=== PATIENT | male | born 1955 | race Caucasian/White ===

== ENCOUNTER 2018-08-10 14:34 | Emergency (ER) | payer OTHER, SELFPAY ==
[2018-08-10 14:35] VITALS: BP 174/112; PULSE 99; RESP 16; TEMP 36; O2SAT 97; BMI 25.3
--- NOTE | 2018-08-10 15:01 | CT_ITS ---
STUDY: CT BRAIN WITHOUT CONTRAST REASON FOR EXAM: Male, 63 years old. Laceration. RADIATION DOSAGE (If Supplied By Facility): CTDIvol = ( 44.99 ) mGy, DLP = ( 829.85 ) mGycm TECHNIQUE: Transaxial CT imaging of the brain was performed without administration of intravenous contrast material. Individualized dose optimization techniques were used for this CT. COMPARISON: None. FINDINGS: There is no definite acute abnormality. There is diffuse mild symmetric atrophy. There is atrophy of the posterior fossa structures. There is diffuse small vessel ischemic disease of the white matter. There is no definite acute infarct. There is no bleed. There is no gross mass, mass effect, or midline shift. There is no acute abnormality of the skull. No fractures. Grossly normal orbits. Grossly normal sinuses. CT/Brain/Head without Contrast IMPRESSION: Chronic age related changes and atrophy. No acute abnormality. Electronically Signed: Tae Parish MD at 16:22 EDT , Service support ,
--- NOTE | 2018-08-10 15:06 | ED.DCSUM_ITS ---
- ER Visit Summary Date of Service: 08/10/18 Chief Complaint: Fall History of Present Illness: The patient is a 63 M who fell around 2 PM today. The patient tripped. He did hit his head and he sustained a laceration to his forehead. He did not lose consciousness. Denies neck pain. Denies any other pain or injuries. He does take aspirin. Physical Examination: Hypertensive but otherwise vitals normal. Afebrile. Alert and oriented. No acute distress. Sitting comfortably. Left forehead and eyebrow shows a 3 cm laceration, full-thickness. The remainder of his head is atraumatic. HEENT exam unremarkable. Neck nontender. Heart regular rate and rhythm. Lungs clear. Good strength and sensation, symmetric in all extremities. Test Results: CT brain pending. Emergency Department Course and Treatment: Tetanus updated. Laceration was anesthetized with lidocaine. Irrigated and explored. Closed with simple interrupted sutures 6 x 6-0. Follow-up with primary care for suture removal in about 12 days. Return sooner for any complications like redness, warmth, bleeding, pus, or increasing pain. CT unremarkable. No indication for other imaging or diagnostic testing. Treatment Plan: As above Disposition: Discharge Impression: 1. Closed head injury 2. Forehead laceration 3 cm This note was generated with [employer] dictation software. It may contain incorrect words, spelling, and punctuation that were not noted in review of the chart prior to signing ED Disposition - Plan for ED Patient: Chief Complaint: Head Injury Instructions: ED Concussion, ED Laceration All Referrals: [facility] [Primary Care Provider] - 10-14 Days suture removal
--- NOTE | 2018-08-10 15:06 | ED.DEP ---
ED Disposition - Plan for ED Patient: Chief Complaint: Head Injury Instructions: ED Concussion, ED Laceration All Referrals: [facility] [Primary Care Provider] - 10-14 Days suture removal
--- NOTE | 2018-08-10 15:07 | DCINST.ED_ITS ---
ED Disposition - Plan for ED Patient: Chief Complaint: Head Injury Instructions: ED Concussion, ED Laceration All Referrals: [facility] [Primary Care Provider] - 10-14 Days suture removal
[2018-08-10] MEDS: Diphth,Pertuss(Acell),Tet Vac 0.5 ML Vial IM (15:24)
[2018-08-10 16:48] VITALS: BP 159/98; PULSE 86; RESP 18; O2SAT 96
== END 2018-08-10 16:49 | disposition home or self-care (01) ==
LOC: ED 16:19
PROVIDERS: Emergency Provider Emergency Medicine
DX: S01.81XA Laceration without foreign body of other part of head, initial encounter (principal); W01.10XA Fall on same level from slipping, tripping and stumbling with subsequent striking against unspecified object, initial encounter; Y93.9 Activity, unspecified; Y92.89 Other specified places as the place of occurrence of the external cause; Y99.9 Unspecified external cause status; Z23 Encounter for immunization; E11.9 Type 2 diabetes mellitus without complications; Z87.891 Personal history of nicotine dependence; Z86.19 Personal history of other infectious and parasitic diseases
CPT/HCPCS: 12013; 70450; 90715; 99282

== ENCOUNTER 2019-02-25 17:13 | Emergency (ER) | payer OTHER, SELFPAY ==
[2019-02-25 17:13] VITALS: BP 144/82; PULSE 88; RESP 18; TEMP 36.9; O2SAT 97; BMI 26.4
--- NOTE | 2019-02-25 17:54 | ED.DCSUM_ITS ---
- ER Visit Summary Date of Service: 02/25/19 Chief Complaint: Fell in his kitchen injuring his left hand on the dorsum along the index finger and lower back. History of Present Illness: The patient is a 63 M past medical history of insulin-dependent diabetes, hepatitis and hypertension. He states that he was in his kitchen got his front right pocket caught on the counter and lost his balance and fell landing on his buttock injuring his lower back and left hand. Denies any his head. No LOC. No neck pain. He is on no blood thinners besides aspirin. Physical Examination: Vital signs stable afebrile. No acute distress. H EENT exam. Light. Extra motions are intact. No signs of facial or scalp trauma. Nontender no hematomas. C-spine nontender normal range of motion. Lungs clear to auscultation bilaterally. Heart regular rhythm no murmur. Chest nontender. Abdomen soft nontender. No peritoneal signs. Pelvic girdle intact. Remedies moving all 4. Neurovascular intact. The left shoulder, elbow and wrist are nontender. Nonswollen. He has swelling and tenderness to the dorsum of his left hand primarily over the dorsum of the left index finger metacarpal. Skin is intact. Lower extremities he has normal range of motion. 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 Back is cervical, thoracic spines are nontender. His mid to lower lumbar spinous tenderness but no ecchymosis or bruising. Neurologically is awake alert with no focal motor deficits. Test Results: LS-spine x-ray shows 3 view shows no acute abnormality. No compression fractures. Read by myself. Chronic changes Left hand x-ray shows chronic changes no acute fracture dislocation read by myself. 3 views. Emergency Department Course and Treatment: Patient deferred anything for pain. Imaging studies be obtained. Repeat exam patient is doing well at 1820 3 PM. He and I went over his x-rays. Treatment Plan: Ice all sore areas. Tylenol for pain. Follow-up with his primary care provider if not improving. Disposition: dc Impression: Lumbar contusion Left hand contusion Acute fall This note was generated with [employer] dictation software. It may contain incorrect words, spelling, and punctuation that were not noted in review of the chart prior to signing ED Disposition - Plan for ED Patient: [facility]errals[place] [facility] [[facility] [place]] -
--- NOTE | 2019-02-25 17:55 | RAD_ITS ---
STUDY: X-RAY - LEFT HAND REASON FOR EXAM: Male, 63 years old. Pain TECHNIQUE: 3 view(s) of the hand. COMPARISON: None. FINDINGS: There is no evidence of fracture or dislocation. Mild degenerative changes are present in the carpal bones. Osteopenia is present. There are no radiodense foreign bodies. RAD/Hand Min 3 Views IMPRESSION: No fracture or dislocation. Mild carpal degenerative changes and osteopenia. Electronically Signed: Rohit Bradford, at 18:47 EDT Tel , Service support ,
--- NOTE | 2019-02-25 18:05 | RAD_ITS ---
STUDY: X-RAY - LUMBAR SPINE REASON FOR EXAM: Male, 63 years old. Fall TECHNIQUE: 3 view(s) of the lumbar spine were obtained. COMPARISON: None FINDINGS: There is no evidence of fracture or dislocation in the lumbar spine. The vertebral body heights and disc spaces are well-maintained. Mild multilevel osteophytosis is present. There are no significant degenerative changes. RAD/Lumbar Spine 2 or 3 Views IMPRESSION: No fracture or dislocation in the lumbar spine. Mild multilevel osteophytosis. Electronically Signed: Rohit Bradford, at 18:49 EDT Tel , Service support ,
--- NOTE | 2019-02-25 18:25 | ED.DEP ---
ED Disposition - Plan for ED Patient: Instructions: ED Contusion Back, ED Contusion Hand Referrals: [facility] [Primary Care Provider] - As Needed Additional Instructions: Back. Tylenol for pain and limited Motrin. Follow-up with not improving. Your x-rays showed no broken bones today.
--- NOTE | 2019-02-25 18:58 | ED.RN ---
calling security to pull vehicle to front for pt
== END 2019-02-25 18:59 | disposition home or self-care (01) ==
LOC: ED 17:58
PROVIDERS: Emergency Provider Emergency Medicine
DX: S30.0XXA Contusion of lower back and pelvis, initial encounter (principal); S60.222A Contusion of left hand, initial encounter; W01.0XXA Fall on same level from slipping, tripping and stumbling without subsequent striking against object, initial encounter; Y92.000 Kitchen of unspecified non-institutional (private) residence as the place of occurrence of the external cause; Z79.4 Long term (current) use of insulin; E11.9 Type 2 diabetes mellitus without complications; I10 Essential (primary) hypertension; Z86.73 Personal history of transient ischemic attack (TIA), and cerebral infarction without residual deficits
CPT/HCPCS: 72100; 73130; 99282; J7030

== ENCOUNTER 2019-04-21 05:17 | Emergency (ER) | payer OTHER, SELFPAY ==
[2019-04-21 05:18] VITALS: BP 189/107; PULSE 92; RESP 16; TEMP 36.6; O2SAT 98; BMI 28.2
--- NOTE | 2019-04-21 05:30 | RAD_ITS ---
STUDY: X-RAY - RIGHT WRIST REASON FOR EXAM: Male, 64 years old. Right-sided wrist pain. TECHNIQUE: 3 view(s) of the wrist were obtained. COMPARISON: None. FINDINGS: There is demineralization of the radius and ulna. There is degenerative arthrosis of the radiocarpal articulation. There is degenerative arthrosis of the distal radioulnar articulation. There is demineralization of the carpal bones. There is deformity of the lunate suggesting possible sequela of previous fracture. There are lucencies within several carpal bones that may represent small erosions. There is degenerative arthrosis of the carpal articulations. There is degenerative arthrosis of the carpometacarpal articulation of the thumb. Normal second through fifth carpometacarpal articulations. Normal visualized metacarpal bones. There is mild soft tissue swelling. There is no demonstrated acute fracture. RAD/Wrist min 3 Views IMPRESSION: 1. Osteoporosis. 2. Degenerative arthropathy of the wrist. 3. Probable sequela of previous fracture of the lunate. 4. Apparent erosive changes of the carpal bones. Electronically Signed: Vandana Asencio MD at 6:52 EDT , Service support ,
--- NOTE | 2019-04-21 05:30 | RAD_ITS ---
STUDY: X-RAY - UNILATERAL RIBS ( LEFT ) WITH CHEST REASON FOR EXAM: Male, 64 years old. Left rib pain. TECHNIQUE - RIBS: 3 view(s) of the ribs. TECHNIQUE - CHEST: Single PA view of the chest. COMPARISON: Chest radiograph dated May 03, 2017. FINDINGS - RIBS: Appears to be some periosteal reaction at the costochondral region of the left ninth rib suggesting possible sequela of subacute or old fracture. There may also be deformity of the left costochondral region of the left 10th rib. FINDINGS - CHEST: There is hyperinflation of the lungs consistent with chronic obstructive lung disease (COPD). There is interstitial thickening present in both lungs. There is no demonstrated pleural abnormality. Normal size heart. Normal mediastinum and brie. There is prominence of the pulmonary hilar arteries without peripheral pulmonary vascular congestion. There is atherosclerotic calcification of the aortic arch with tortuosity. Normal visualized thoracic spine. There also appears to be deformity of the posterior left fifth rib which may be the result of old rib fracture. There is deformity of the lateral left sixth and seventh ribs. There is no demonstrated abnormality of the visualized soft tissue structures of the upper abdomen. RAD/Ribs Uni Min 3V w/PA Chest IMPRESSION: RIBS: Deformity of several left-sided ribs as described. These are of uncertain acuity. Clinical correlation is suggested regarding acuity. CHEST: No radiographic evidence of acute cardiopulmonary disease. Electronically Signed: Vandana Asencio MD at 6:45 EDT , Service support ,
--- NOTE | 2019-04-21 05:31 | ED.DCSUM_ITS ---
- ER Visit Summary Date of Service: 04/21/19 Chief Complaint: Fall History of Present Illness: The patient is a 64 M who presents after a fall today. Patient states he tripped in his house. Patient states he grabbed onto a railing with his right arm and hit his left ribs. Patient states the pain is over the left lower ribs. Patient also complains of pain in his right wrist. Patient denies any head injury or loss of consciousness. Patient denies any paresthesias or weakness. Patient states the pain is worse with deep breathing and with movement. Patient denies any other injuries. Physical Examination: Vital signs are stable except for an elevated blood pressure of 189/107. Patient is afebrile. Patient is in no acute distress. Oral mucosa is pink and moist. Neck is supple. Trachea is midline. There is no JVD noted. Heart was regular rate and rhythm. Lungs are clear and equal bilaterally. There is adequate respiratory effort noted. There is tenderness over the left lower ribs. There is no bony crepitance or step-off. Abdomen is soft. Bowel sounds are normal. There is no tenderness. Musculoskeletal exam reveals tenderness over the right wrist. There is some mild edema and ecchymosis. There is no deformity noted. Range of motion was slightly limited in flexion extension secondary to pain. Sensation was intact to light touch in the radial, median, and ulnar areas. Strength is 5/5 in the radial, median, and ulnar areas. Radial pulses are equal bilaterally. Test Results: X-rays of the right wrist were obtained. There are degenerative changes noted. There is no acute fracture noted. X-rays of the left ribs were obtained. There are old healed fractures of the left fifth and sixth ribs posteriorly. There is also an old fracture of the left ninth rib and a questionable deformity near the costochondral region of the left 10th rib. There is no pneumothorax noted. Emergency Department Course and Treatment: Patient was instructed to use ice to the area. Patient was instructed to use Tylenol or ibuprofen as needed for pain. Patient was instructed to take 10-15 deep breaths every hour while awake to prevent atelectasis and pneumonia. Patient was instructed to follow-up with his primary care physician in 5 to 7 days. Patient understood and was agreeable with the plan. All questions were answered. Disposition: Discharge home Impression: 1. Left chest wall contusion 2. Right wrist contusion This note was generated with [employer] dictation software. It may contain incorrect words, spelling, and punctuation that were not noted in review of the chart prior to signing ED Disposition - Plan for ED Patient: Disposition: Home or Assisted Living Diagnosis: Contusion of left chest wall, Contusion of right wrist, initial encounter Instructions: Chest Wall Contusion, FALL, Mechanical Referrals[place] [facility] [Primary Care Provider] - 5-7 Days
== END 2019-04-21 07:16 | disposition home or self-care (01) ==
PROVIDERS: Emergency Provider Emergency Medicine
DX: S20.212A Contusion of left front wall of thorax, initial encounter (principal); S60.211A Contusion of right wrist, initial encounter; W01.0XXA Fall on same level from slipping, tripping and stumbling without subsequent striking against object, initial encounter; Y93.9 Activity, unspecified; Y92.009 Unspecified place in unspecified non-institutional (private) residence as the place of occurrence of the external cause
CPT/HCPCS: 71101; 73110; 99282

== ENCOUNTER 2019-08-18 11:53 | Inpatient (IN) | payer MEDICARE, OTHER, SELFPAY ==
[2019-08-18 11:54] VITALS: BP 163/88; PULSE 88; RESP 18; TEMP 36.6; O2SAT 99; BMI 29.7
--- NOTE | 2019-08-18 12:26 | VDLE_ITS ---
Reason For Study: SWSELLING RIGHT GSV is normal. CFV is compressible, spontaneous, phasic, competent and demonstrates normal augmentation. FV is compressible, spontaneous, phasic, competent and demonstrates normal augmentation. POP V is compressible, spontaneous, phasic, competent and demonstrates normal augmentation. T/P Trunk is compressible. PTV is compressible. RT PerV is compressible. Procedure Exam performed portable in ED. A preliminary report was called and/or faxed to ED. Interpretation Summary Deep veins of the right lower extremity are patent and compressible segmentally. There is no evidence of right lower extremity deep vein thrombosis. Valvular competence appears intact within the proximal deep venous system on the right . The right great saphenous vein appears patent and compressible segmentally. Ordering Physician: Juan Gonzalez Referring Physician: [facility] Performed By: Sylwia Bulter, AYDIN, RVT
[2019-08-18 13:06] LABS: Absolute Lymphocyte Count 1.08 X10^3/uL (0.83-4.51); Basophil# 0.03 X10^3/uL; Basophil% 0.4 % (0-1); Eosinophil# 0.13 X10^3/uL; Eosinophils% 1.9 % (0-5); Hematocrit 42.4 % (40-54); Hemoglobin 13.7 g/dL (13.0-16.5); Lymphocyte # 1.08 X10^3/ul (4.0); Lymphocyte % 15.5 % (19-41); Mean Corp Hgb Conc 32.3 g/dL (32-36); Mean Corpuscular Hgb 28.8 pg (27.0-32.0); Mean Corpuscular Volume 89.1 fL (80-94); Mean Platelet Vol. 9.8 fl (6.2-12.0); Monocyte# 0.69 X10^3/uL; Monocyte% 9.9 % (0-10); NRBC Flagged by Analyzer 0 % (0-5); Neutrophil # 5.02 X10^3/uL (2.7-7.7); Neutrophil % 71.9 % (47-70); Platelet Count 143 K/mm3 (150-450); RBC Distribution Width CV 13.2 % (11.6-14.6); RBC Distribution Width SD 43.5 fl (35.1-43.9); Red Blood Count 4.76 M/mm3 (4.6-6.2)
--- NOTE | 2019-08-18 13:12 | RAD_ITS ---
STUDY: X-RAY - RIGHT FOOT CLINICAL: Male, 64 years old. Edema and redness at the surgical site. TECHNIQUE: 3 view(s) of the foot. COMPARISON: None. FINDINGS: There is an enthesophyte involving the posterior superior calcaneus at the site of insertion of the Achilles tendon. Small plantar spur. Talar neck peak. Normal visualized subtalar, talonavicular, calcaneocuboid, tarsal and tarsometatarsal articulations. The patient is status post amputation of the distal portion of the fourth metatarsal as well as the fourth digit. Normal metatarsophalangeal joint of the great toe. Normal tibial and fibular sesamoid bones. There is degenerative arthrosis of the interphalangeal joint of the great toe. Normal phalanges of the great toe. Normal second through fifth metatarsophalangeal joints. Normal interphalangeal joints and phalanges of the lesser toes. Diffuse soft tissue swelling. RAD/Foot min 3 Views IMPRESSION: Status post amputation of the distal portion of the fourth metatarsal as well as the fourth toe with diffuse soft tissue swelling. Electronically Signed: Brandon Qiu, at 13:33 EST , Service support ,
[2019-08-18 13:19] LABS: Erythrocyte Sedimentation Rate 26 mm/hr (0-20)
[2019-08-18 13:20] LABS: AST(SGOT) 19 U/L (15-37); Alanine Aminotransfer ALT/SGPT 32 U/L (16-61); Albumin, Serum 3.7 g/dL (3.2-5.0); Alkaline Phosphatase 57 U/L (45-117); Anion Gap 5 (5-15); BUN 15 mg/dL (7-18); Bilirubin, Direct 0.34 mg/dL (0.00-0.30); Calcium,Total 9.1 mg/dL (8.5-10.1); Chloride 102 mmol/L (98-107); Creatinine, Serum 0.88 mg/dL (0.70-1.30); EST Glomerular Filtration Rate 92 mL/min (>60); Est Glom Filt Rate - Afr Amer 111 mL/min (>60); Estimated Creatinine Clearance 95.84 ml/min; Globulin 4.3 g/dL (2.2-4.2); Glucose 174 mg/dL (74-106); Potassium 4.2 mmol/L (3.5-5.1); Sodium Level 137 mmol/L (136-145)
[2019-08-18 13:23] LABS: Lactic Acid 1.1 mmol/L (0.4-2.0)
--- NOTE | 2019-08-18 13:40 | ED.VISSUMM ---
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 Reports that he chronically has a plantar wound on the right foot. His who has been caring for it states that today the foot is grossly edematous particularly all the toes and the third toe is now very red and warm. He has had chills and subjective fever. He notes that since his prior amputation the right leg has always been more swollen than the left. Physical Examination: Afebrile vital signs stable Gen: Well-nourished well-developed Head: Normocephalic atraumatic Eyes: Perrl EOMI ENT: TMs clear no rhinorrhea moist mucous membranes Neck: Supple no lymphadenopathy no JVD nontender CVS: Regular rate rhythm no murmurs normal S1-S2 Respiratory: No distress clear to auscultation bilaterally chest nontender Abdomen: Soft nontender nondistended normal bowel sounds no masses Back: Nontender Extremity: The right fourth toe surgically absent. The right third toe is grossly edematous and erythematous. The rest of the toes are not erythematous but do show significant edema. There is some erythema and edema extending up onto the foot. There is a small 3 to 4 mm plantar soft tissue defect/ulcer. Skin: Normal color no rash Neuro: alert orientated ?3 CN II-XII intact normal strength sensation reflexes gait cerebellar Psych: Normal affect normal mood Test Results: White count is 7. CRP at 114. Sed rate 26. Glucose 174. Normal lactic acid. Foot x-ray demonstrates no obvious osteo-or free air. Duplex ultrasound was negative for DVT. Emergency Department Course and Treatment: Blood cultures were obtained and the patient received vancomycin and Zosyn. We will plan on admission. I had our sales secretary call [facility] Eric Myrick and it appears that we can admit here. I will page both her hospitalist and on-call podiatry. Impression: 1. Right foot diabetic cellulitis This note was generated with [employer] dictation software. It may contain incorrect words, spelling, and punctuation that were not noted in review of the chart prior to signing ED Disposition - Plan for ED Patient: [facility]errals[facility] [Primary Care Provider] -
--- NOTE | 2019-08-18 14:23 | HP.PCM_ITS ---
Problem List (1) Diabetic foot infection Status: Acute (2) Cellulitis Status: Acute Qualifiers: Site of cellulitis: extremity Site of cellulitis of extremity: lower extremity Laterality: right Qualified Code(s): L03.115 - Cellulitis of right lower limb (3) Anxiety Status: Acute (4) Diabetes Status: Chronic Qualifiers: Diabetes mellitus type: type 2 Diabetes mellitus usp insulin use: without termite treater helper use Diabetes mellitus complication detail: with other skin ulcer (5) Hypertension Status: Chronic Qualifiers: Hypertension type: essential hypertension Qualified Code(s): I10 - Essential (primary) hypertension (6) Hyperlipidemia Status: Acute Qualifiers: Hyperlipidemia type: unspecified Qualified Code(s): E78.5 - Hyperlipidemia, unspecified History of Present Illness Date of Admission: 08/18/19 Chief Complaint: Right foot infection -ongoing for 11 months; worsening over the past 1 week The patient is a 64 year old M with past medical history of hypertension, type II DM, [facility] comes in with complaints of swelling of the right foot as well as erythema and worsening right foot infection. Patient had a right fourth toe amputation done in October 2018. He follows up with a refrigerator room clerk in [place]. He has noticed that his right foot is increasingly swollen. This morning he woke up to see worsening swelling of the toes as well as erythema. It looked like what it did look before he had his 4th toe amputation. Admits to fever and chills but denied any dizziness or chest pain or shortness o f breath no nausea no vomiting or constipation. His vitals in the ED showed temperature 97.8 F, heart rate 88, blood pressure 163/88, respiratory rate is 18, SPO2 is 99% on room air. His admitting blood work showed WBC count 7.0, hemoglobin 13.7, platelet count 143. His BMP was unremarkable. His total bilirubin is 1.50, Direct bilirubin 0.34, CRP was 114, ESR 26. X-ray of the foot showed diffuse soft-tissue swelling of the foot. Blood cultures are pending. Past Medical History Past Medical History (Chronic Problems): Chronic Problems Hypertension (Chronic) Diabetes (Chronic) Allergies morphine Adverse Reaction (Verified 08/18/19 11:57) Gets mean Home Medications: Ambulatory Orders Medication Instructions Recorded Aspirin [Aspir-Low] 81 mg PO DAILY 04/30/17 Insulin Glargine [Lantus SoloStar 20 units SC QHS 04/30/17 Pen] Melatonin 6 mg PO QHS PRN 04/30/17 Atorvastatin Calcium 5 mg PO QHS 08/18/19 Carvedilol 3.125 mg PO BID 08/18/19 Cholecalciferol (Vitamin D3) 2,000 unit PO DAILY 08/18/19 [Vitamin D3] DiphenhydrAMINE [Benadryl] 25 mg PO QHS PRN 08/18/19 Gabapentin [Neurontin] 300 mg PO TID 08/18/19 Metformin HCl 1,000 mg PO BID 08/18/19 Surgical History: arthroscopy, knee - left, cholecystectomy, total hip arthroplasty - right x 2, - - s/p right 4th toe amputation Lives: Spouse/ Significant Other Smoking Status: Former smoker Tobacco Use: Non-smoker Alcohol: None Drugs: None - *Family History Maternal History Items: Hypertension, - Paternal History Items: Cancer, - - father of cancer. Review of Systems Constitutional: Denies: Anorexia, Chills, Fever, Malaise, Weakness, Weight Change Eyes: Denies: Blurred vision, Cataracts, Conjunctivae Inflammation, Pain, Redness, Vision Change HEENT: Denies: Difficulty Hearing, Head Aches, Hearing Changes, Sinus Congestion, Sinus Drainage Cardiovascular: Denies: Chest Pain, Claudication, Orthopnea, Palpitations, Paroxysmal Noc. Dyspnea Respiratory: Denies: Cough, Hemoptysis, Shortness of breath at rest, Shortness of breath upon exertion, Sputum production Gastrointestinal: Denies: Abdominal Pain, Nausea, Vomiting Genitourinary: Denies: Dysuria Musculoskeletal: Reports: Foot Pain. Denies: Joint Pain, Joint stiffness, Joint swelling, Joint Tenderness Skin: Denies: Dryness, Jaundice, Rash, Wounds Neurological: Denies: Difficulty swallowing, Focal weakness, Numbness, Tingling Psychiatric: Denies: Anxiety, Depression, Homicidal Ideations, Suicidal Ideations Hematologic/ Lymphatic: Denies: Easy Bruising, Easy Bleeding VTE Information - Inpt Only VTE Present on Admission: No VTE Pharm Prophylaxis ordered?: Yes Patient Problems: Active and Suspected Problems Diabetic foot infection (Acute) Cellulitis (Acute) Hyperlipidemia (Acute) - Physical Exam Vitals/I&O's: Vital Signs Temp Pulse Resp BP Pulse Ox 97.8 F 88 18 163/88 H 99 11/11/19 11:54 08/18/19 11:54 08/18/19 11:54 08/18/19 11:54 08/18/19 11:54 Oxygen Delivery Method Room Air Weight: 102.058 kg Body Mass Index (BMI) 29.7 Finger Stick Blood Glucose 177 General: Alert, Oriented x3, Cooperative, No apparent distress HEENT: Atraumatic, PERRLA, EOMI, Normocephalic Oral: Moist Mucosa Neck: Supple Lungs: Clear to auscultation, Normal air movement Cardiovascular: Regular rate, Regular Rhythm, Normal S1, Normal S2, No murmurs Abdomen: Bowel Sounds Present, Soft, Non Tender, Non-Distended, No Hepato- splenomegaly Extremities: Edema - +3-4 pitting, tender edema of the right foot and lower leg. Erythema and swelling of the anterior toes of the right foot. Ulcer at the plantar surface of metatarsal region, with dark slough at base, Skin: - - see fot exam Musculoskeletal: Tenderness - to the foot Lymphatic: No Cervical, Supraclavicular, or Inguinal Adenopathy Neurological: Cranial nerves II-XII grossly intact, Neuro grossly intact Psych/Mental Status: Normal Affect, Appropriate Laboratory Results 08/18/19 12:45: WBC 7.0, RBC 4.76, Hgb 13.7, Hct 42.4, MCV 89.1, MCH 28.8, MCHC 32.3, RDW Std Deviation 43.5, RDW Coeff of Hakeem 13.2, Plt Count 143 L, MPV 9.8, Immature Gran % (Auto) 0.400, Neut % (Auto) 71.9 H, Lymph % (Auto) 15.5 L, [place] % (Auto) 9.9, Eos % (Auto) 1.9, Baso % (Auto) 0.4, Absolute Neuts (auto) 5.0, Absolute Lymphs (auto) 1.08, Nucleated RBC % 0, ESR 26 H 08/18/19 12:45: Sodium 137, Potassium 4.2, Chloride 102, Carbon Dioxide 30.0, Anion Gap 5, BUN 15, Creatinine 0.88, Estim Creat Clear Calc 95.84, Est GFR (MDRD) Af Amer 111, Est GFR (MDRD) Non-Af 92, BUN/Creatinine Ratio 17.0, Glucose 174 H, Calcium 9.1, Total Bilirubin 1.50 H, Direct Bilirubin 0.34 H, AST 19, ALT 32, Alkaline Phosphatase 57, C-React Prot Ext Range 114.00 H, Total Protein 8.0, Albumin 3.7, Globulin 4.3 H 08/18/19 12:45: Lactic Acid 1.1 Current Medications Vancomycin HCl 2,000 mg/ (Sodium Chloride) 540 mls @ 250 mls/hr IV X1 ONE Stop: 08/18/19 16:09 Assessment/Plan All Active Problems Diabetic foot infection (Acute) Cellulitis (Acute) Hyperlipidemia (Acute) Preop cardiovascular exam (Acute) Troponin I above reference range (Acute) Anxiety (Acute) Stroke (Acute) 64 year old M with past medical history of hypertension, type II DM, who [facility] comes in with complaints of swelling of the right foot as well as erythema and worsening right foot infection. 1. Cellulitis of the right foot/acute on chronic right diabetic foot infection, suspected underlying osteomyelitis, Foot is said to be worsening per patient's history, History of right fourth toe amputation in October 2018 Doppler USG done in ED reportedly normal Plan: Admit to [facility], continue on IV vancomycin and Zosyn, podiatry consult, infectious disease consult, elevate right foot Wound RN consult, MRI of the foot, follow-up on blood cultures 2. Type II DM, reportedly uncontrolled at home, patient follows with the [place] Request follow-up with academic director and with the hospital Will continue on medications (per med rec when completed) Hold metformin, continue with blood glucose checks with insulin sliding scale 3. Hypertension, continue on home medications, continue to monitor vitals 4. Hyperlipidemia, on statin 5. Chronic hep C, status post treatment, cured per patient History of cirrhosis of the liver, elevation of the total bilirubin and direct bilirubin No jaundice on exam [facility] 6. Thrombocytopenia, mild, chronic likely secondary to cirrhosis Will trend whilst on Heparin for DVT PPx 7. DVT prophylaxis with Heparin SC Code Visit Inpatient E&M: 80911 Init Hosp L2
[2019-08-18 15:08] VITALS: BMI 33.8
[2019-08-18 15:18] VITALS: BMI 33.9
[2019-08-18 15:28] VITALS: BP 132/81; PULSE 89; RESP 16; TEMP 36.7; O2SAT 98
--- NOTE | 2019-08-18 15:34 | MRI_ITS ---
STUDY: MRI RIGHT MIDFOOT REASON FOR EXAM: Male, 64 years old. RT FOOT INFECTION open wound plantar surface distal MT's not healed from prev amputation rt 4th toe 10/2018, increased swelling, redness TECHNIQUE: Standardized fat and water weighted pulse sequences were obtained in all 3 orthogonal planes. COMPARISON: Right foot x-ray dated August 18, 2019 FINDINGS: An open ulcer is present on the plantar aspect of the foot directly beneath the third metatarsal head associated with small linear sinus tract which extends to the cortical surface of the bone resulting in minimal cortical erosion and osteomyelitis. Mild edema is present in the infected portion of the third metatarsal head. The surrounding soft tissues are mildly to moderately swollen around the entire foot. A small effusion is present on the dorsal surface of the third metatarsal head. Mild cortical erosion is also present on the plantar surface of the base of the proximal phalanx of the third digit compatible with osteomyelitis. Diffuse reactive edema is present throughout the remaining aspects of the third proximal phalanx. Cortical thickening and diffuse edema is present in the second proximal phalanx. There is a healed fracture deformity of the head neck junction of the second proximal phalanx. Diffuse edema is also present in the middle phalanx of the second digit. Chronic amputation deformity of the head of the fourth metatarsal bone. The phalanges of the fourth digit were previously amputated. Normal talonavicular articulation. Normal calcaneocuboid articulation. Normal navicular-cuneiform articulations. Normal intercuneiform articulations. Normal first tarsometatarsal articulation. Normal Lisfranc ligament. Normal second and third tarsometatarsal articulations. Normal cuboid fourth and cuboid fifth tarsometatarsal articulation. Normal tibialis anterior tendon. Normal extensor hallucis longus tendon. Normal extensor digitorum longus tendons. Normal peroneus longus tendon and distal insertion. Normal peroneus brevis tendon and distal insertion. There is diffuse atrophy of the intrinsic muscles of the foot consistent with a peripheral neuropathy. MRI/Lower Ext/No Jt/w/o IMPRESSION: 1. Mild osteomyelitis in the head of the third metatarsal bone and in the base of the third proximal phalanx. 2. Open soft tissue ulcer with a sinus tract leading up to the third metatarsal head. 3. Healed fracture deformity of the head neck junction second proximal phalanx and diffuse reactive edema. 4. Cellulitis on the plantar aspect of the foot. N.B. : The above information has been verbally conveyed by Edwin Toro MD [facility], RN, on 08/18/2019 20:45:26 (ET). Electronically Signed: Edwin Toro MD at 20:46 EST , Service support ,
--- NOTE | 2019-08-18 16:03 | NURSING ---
wound photo: right plantar foot
--- NOTE | 2019-08-18 16:18 | PCM.RX.CS ---
Consult Pharmacy has been consulted to manage selected antiobiotic: Vancomycin Type of Consult: New start Suspected Infection: Skin/Soft tissue Prior Doses of Antibiotics Received/Current Regimen: Received 2gm iv in ED 08.18.19 @1500 Labs: Sodium 137 mmol/L (136-145) 08/18/19 12:45 Potassium 4.2 mmol/L (3.5-5.1) 08/18/19 12:45 Chloride 102 mmol/L (98-107) 08/18/19 12:45 Carbon Dioxide 30.0 mmol/L (21.0-32.0) 08/18/19 12:45 Anion Gap 5 (5-15) 08/18/19 12:45 BUN 15 mg/dL (7-18) 08/18/19 12:45 Creatinine 0.88 mg/dL (0.70-1.30) 08/18/19 12:45 Est GFR (MDRD) Af Amer 111 mL/min (>60) 08/18/19 12:45 Est GFR (MDRD) Non-Af 92 mL/min (>60) 08/18/19 12:45 BUN/Creatinine Ratio 17.0 RATIO (10-20) 08/18/19 12:45 Glucose 174 mg/dL (74-106) H 08/18/19 12:45 Weight used for dosin kg Estimated Creatinine Clearance: 95.8ml/min Goal Trough: 15-20 mcg/mL Pharmacy Plan for Drug Dosing: Will begin 2gm iv q12h and get trough level before 4th dose on 08.20.19. Pharmacy Service will continue to monitor and adjust dosing as required. Follow-Up Labs: Trough Vancomycin - 08.20.19 @0230 before 0300 dose
[2019-08-18] MEDS: 0.9% Normal Saline 1,000 ML 75 ML IV (16:26)
[2019-08-18 16:36] LABS: Bedside Glucose 145 mg/dL (70-110)
--- NOTE | 2019-08-18 16:39 | PCM.CONS.GEN ---
Reason for Consult Date of Consultation: 08/18/19 Reason for Consultation: Right foot diabetic ulcer infection History of Present Illness: The patient is a 64 year old gentleman with poorly controlled diabetes presents to hospital for right foot ulceration and redness/swelling. He relates he had right 4th toe amputation in Oct 2018 at [place], went back to have it closed, then had to go back again to take more bone. He chronic ulceration on the bottom of the foot, he relates it was healing, but states his surgeon at [place] recommended further amputation/surgery. Patient was suppose to follow up with that physician in 1 week, patient relates he decided he did not want any surgery, and also patient notes recently foot because red and swollen so he came to [facility]. Patient has offloading surgical shoe with foot orthotic. Patient relates his blood sugars have not been well controlled. His is at bedside. Past Medical History Past Medical History (Chronic Problems): Chronic Problems Hypertension (Chronic) Diabetes (Chronic) Allergies morphine Adverse Reaction (Verified 08/18/19 11:57) Gets mean Home Medications: Ambulatory Orders Medication Instructions Recorded Aspirin [Aspir-Low] 81 mg PO DAILY 04/30/17 Insulin Glargine [Lantus SoloStar 20 units SC QHS 04/30/17 Pen] Melatonin 6 mg PO QHS PRN 04/30/17 Atorvastatin Calcium 5 mg PO QHS 08/18/19 Carvedilol 3.125 mg PO BID 08/18/19 Cholecalciferol (Vitamin D3) 2,000 unit PO DAILY 08/18/19 [Vitamin D3] DiphenhydrAMINE [Benadryl] 25 mg PO QHS PRN 08/18/19 Gabapentin [Neurontin] 300 mg PO TID 08/18/19 Metformin HCl 1,000 mg PO BID 08/18/19 Surgical History: arthroscopy, knee - left, cholecystectomy, total hip arthroplasty - right x 2, - - s/p right 4th toe amputation Lives: Spouse/ Significant Other Smoking Status: Former smoker Tobacco Use: Non-smoker Alcohol: None Drugs: None - *Family History Maternal History Items: Hypertension, - Paternal History Items: Cancer, - - father of cancer. Review of Systems Constitutional: Denies: Chills, Fever Gastrointestinal: Denies: Nausea, Vomiting Musculoskeletal: Reports: Foot Pain Skin: Reports: Wounds Patient Problems: Active and Suspected Problems Diabetic foot infection (Acute) Cellulitis (Acute) Hyperlipidemia (Acute) - Physical Exam Vitals/I&O's: Vital Signs Temp Pulse Resp BP Pulse Ox 98.1 F 89 16 132/81 H 98 08/18/19 15:28 08/18/19 15:28 08/18/19 15:28 08/18/19 15:28 08/18/19 15:28 Oxygen Delivery Method Room Air Weight: 104.054 kg Body Mass Index (BMI) 33.8 Finger Stick Blood Glucose 177 Intake and Output for Last 24 Hours 08/16/19 08/17/19 08/18/19 23:59 23:59 23:59 Intake Total 100 / 100 Balance 100 / 100 General: Alert, Oriented x3, Cooperative, No apparent distress, - - Resting comfortably in bed Extremities: Capillary Refill Less than 3 Seconds, No Calf Tenderness, Edema - There is edema to the foot/ankle and leg c/w infection, right, no edema left., Peripheral Pulses Normal, - - There is ulceration to sub 3rd met head right foot which probes to 3rd met head bone, there is some granular tissue to the wound base and margins otherwise, there is no drainage from the ulceration, there is no maloder, no fluctuance, no crepitus, no visible abscess, there is erythema to the forefoot, no streaking, no blistering, no visible necrosis. Toenails thickened, dystrophic, and yellow but maintained at this time. Sensation diminished to the foot c/w diabetic neuropathy. Motor function intact to the foot/ankle. There is right 4th toe amputation and 4th met head amputation right foot. Pedal pulses intact, with no evidence of acute ischemia to the foot. Musculoskeletal: No Tenderness to Palpation of Joints or Extremities Psych/Mental Status: Normal Affect, Appropriate, Alert and oriented to time, place, person, mood and affect Laboratory Results 08/18/19 12:45: WBC 7.0, RBC 4.76, Hgb 13.7, Hct 42.4, MCV 89.1, MCH 28.8, MCHC 32.3, RDW Std Deviation 43.5, RDW Coeff of Hakeem 13.2, Plt Count 143 L, MPV 9.8, Immature Gran % (Auto) 0.400, Neut % (Auto) 71.9 H, Lymph % (Auto) 15.5 L, [place] % (Auto) 9.9, Eos % (Auto) 1.9, Baso % (Auto) 0.4, Absolute Neuts (auto) 5.0, Absolute Lymphs (auto) 1.08, Nucleated RBC % 0, ESR 26 H 08/18/19 12:45: Sodium 137, Potassium 4.2, Chloride 102, Carbon Dioxide 30.0, Anion Gap 5, BUN 15, Creatinine 0.88, Estim Creat Clear Calc 95.84, Est GFR (MDRD) Af Amer 111, Est GFR (MDRD) Non-Af 92, BUN/Creatinine Ratio 17.0, Glucose 174 H, Calcium 9.1, Total Bilirubin 1.50 H, Direct Bilirubin 0.34 H, AST 19, ALT 32, Alkaline Phosphatase 57, C-React Prot Ext Range 114.00 H, Total Protein 8.0, Albumin 3.7, Globulin 4.3 H 08/18/19 12:45: Lactic Acid 1.1 08/18/19 15:45: S.aureus Protein A PCR Pending, MRSA (PCR) Pending 08/18/19 16:29: POC Glucose 145 H Current Medications Acetaminophen (Tylenol) 1,000 mg PO Q8H PRN PRN PRN Reason: Pain or Fever Al Hydroxide/Mg Hydroxide (Mylanta Ii) 30 ml PO Q6H PRN PRN PRN Reason: Gastric Burning Albuterol Sulfate (Ventolin Aerosols) 2.5 mg INHALATION Q2H PRN PRN PRN Reason: Shortness of Breath/Wheezing Aspirin (Ecotrin) 81 mg PO DAILYCM [facility] Atorvastatin Calcium (Lipitor) 5 mg PO QHS [facility] Calcium Carbonate (Os-Lucho 500) 1,000 mg PO DAILY@0800 [facility] Carvedilol (Coreg) 3.125 mg PO BID KAREN Cholecalciferol (Vitamin D) 2,000 unit PO DAILY KAREN Dextrose (D50w Syringe) 0 gm IV X1 PRN; Protocol PRN Reason: Hypoglycemia Gabapentin (Neurontin) 300 mg PO TID KAREN Glucagon () 1 mg IM .X1 PRN PRN Reason: Hypoglycemia Sodium Chloride () 1,000 mls @ 75 mls/hr IV .[id number] KAREN Stop: 08/19/19 04:50 Last Admin: 08/18/19 16:26 Dose: 75 mls/hr Documented by: Piperacillin Sod/Tazobactam (Sod 3.375 gm/ Sodium Chloride) 50 mls @ 12.5 mls/hr IV Q8 KAREN Vancomycin IV Pharmacy to Dose (1 ea/ Sodium Chloride) 500 mls @ 250 mls/hr IV PRN PRN; Protocol PRN Reason: Rx to Dose Vancomycin HCl 2,000 mg/ (Sodium Chloride) 540 mls @ 250 mls/hr IV Q12H KAREN Insulin Glargine (Lantus (Bk)) 20 units SC QHS KAREN Insulin Human Lispro (Humalog Kwikpen ([facility])) 0 unit SC ACHS KAREN; Protocol Last Admin: 08/18/19 16:29 Dose: Not Given Documented by: Losartan Potassium (Cozaar) 50 mg PO DAILY [facility] Melatonin (Melatonin) 6 mg PO QHS PRN PRN Reason: SLEEP Nitroglycerin (Nitrostat) 0.4 mg SUBLINGUAL Q5M PRN PRN Reason: CARDIAC/CHEST PAIN Ondansetron HCl (Zofran) 4 mg IV Q8H PRN PRN PRN Reason: NAUSEA/VOMITING Pantoprazole Sodium (Protonix) 20 mg PO DAILY [facility] Senna/Docusate Sodium (Senokot-S, Marla-Colace) 2 tablet PO BID PRN PRN PRN Reason: Constipation Assessment/Plan All Active Problems Diabetic foot infection (Acute) Cellulitis (Acute) Hyperlipidemia (Acute) Preop cardiovascular exam (Acute) Troponin I above reference range (Acute) Anxiety (Acute) Stroke (Acute) Right foot ulceration down to bone Cellulitis and osteomyelitis right foot Diabetes w/ peripheral neuropathy Right foot deformity (absent 4th toe and 4th met head) Reviewed diagnostic data. WBC normal, ESR slightly elevated, CRP elevated, right foot xrays reviewed, no gas or evidence of radiographic osteomyelitis. However suspect osteomyelitis due to signs/symptom of infection with ulceration probing to bone. A MRI has been ordered for further evaluation. Lower extremity arterial studies, noninvasive, have been ordered well. A culture has been obtained from the ulceration, as well as blood cultures, which are pending. Patient on broad spectrum antibiotics, and Infectious Disease has been consulted. Continue with local wound care - marjan, with overlying gauze, kerlix and juliet dressing. Keep right foot elevated, no weightbearing to the right foot. We discussed possible nonsurgical vs surgical options pending further workup. Diabetes and medical management per medicine team. Podiatry will continue to follow. Thank you for consultation.
[2019-08-18 16:40] VITALS: RESP 16; O2SAT 95
--- NOTE | 2019-08-18 16:50 | ART_ITS ---
Reason For Study: ULCER (RT FOOT) Procedure A bilateral lower extremity continuous wave Doppler with analog waveform analysis,segmental pressures,and ankle brachial indexes without exercise. Left Segmental Pressures NO BP taken in left arm due to IV location. Left posterior tibial artery = 148mmHg. Left dorsalis pedis artery = 141mmHg. The left posterior tibial artery waveforms are triphasic. The left dorsalis pedis waveforms are triphasic. Right Segmental Pressures Right brachial= 132mmHg. Right posterior tibial artery = 158mmHg. Right dorsalis pedis artery = 133mmHg. The right posterior tibial artery waveforms are triphasic. The right dorsalis pedis waveforms are triphasic. Indices The right resting ankle brachial index is 1.20. The right ankle brachial index by the posterior tibial artery is 1.20. The right ankle brachial index by the dorsalis pedis is 1.01. The left resting ankle brachial index is 1.12. The left ankle brachial index by the posterior tibial artery is 1.12. The left ankle brachial index by the dorsalis pedis is 1.07. Interpretation Summary Resting ankle-brachial indices appear bilaterally normal. Doppler waveforms are triphasic at bilateral DP and PT levels Ordering Physician: Rohit Luis Referring Physician: [facility] Performed By: Siena Harrington RVT, RDDONA
[2019-08-18 17:20] LABS: Probe Check PASS; Staph aureus DNA By PCR POSITIVE (Negative)
[2019-08-18 17:23] LABS: M R Staph aureus DNA By PCR POSITIVE (Negative)
[2019-08-18 21:30] VITALS: BP 121/56; PULSE 90; RESP 18; TEMP 36.8; O2SAT 97
[2019-08-18] MEDS: Atorvastatin Calcium 10 MG Tablet 5 MG PO (21:33)
[2019-08-18] MEDS: Gabapentin 300 MG Capsule PO (21:33)
[2019-08-18] MEDS: Carvedilol 3.125 MG TABLET PO (21:33)
[2019-08-18] MEDS: Glucerna Shake 120 ML LIQUID PO (21:43)
[2019-08-18] MEDS: Insulin Lispro 100 UNIT/ML INSULN.PEN SC (21:44)
[2019-08-18 21:56] LABS: Bedside Glucose 154 mg/dL (70-110)
[2019-08-19] VITALS (12 sets, daily range): BP systolic 117–138; BP diastolic 64–97; PULSE 76–87; RESP 14–18; TEMP 36.3–36.9; O2SAT 92–97; BMI 33.8; BMI 33.9
[2019-08-19] MEDS: Gabapentin 300 MG Capsule PO ×3 (05:43→21:44)
[2019-08-19 06:28] LABS: Absolute Lymphocyte Count 0.88 X10^3/uL (0.83-4.51); Absolute Neutrophil Count 3.3 X10^3/uL (2.0-7.7); Basophil# 0.03 X10^3/uL; Basophil% 0.6 % (0-1); Eosinophil# 0.16 X10^3/uL; Eosinophils% 3.3 % (0-5); Hematocrit 37.6 % (40-54); Hemoglobin 12.1 g/dL (13.0-16.5); Lymphocyte # 0.88 X10^3/ul (4.0); Lymphocyte % 18.2 % (19-41); Mean Corp Hgb Conc 32.2 g/dL (32-36); Mean Corpuscular Hgb 28.3 pg (27.0-32.0); Mean Corpuscular Volume 88.1 fL (80-94); Mean Platelet Vol. 9.5 fl (6.2-12.0); Monocyte# 0.44 X10^3/uL; Monocyte% 9.1 % (0-10); NRBC Flagged by Analyzer 0 % (0-5); Neutrophil # 3.31 X10^3/uL (2.7-7.7); Neutrophil % 68.4 % (47-70); Platelet Count 120 K/mm3 (150-450); RBC Distribution Width CV 13.1 % (11.6-14.6); Red Blood Count 4.27 M/mm3 (4.6-6.2); White Blood Count 4.8 K/mm3 (4.4-11.0)
--- NOTE | 2019-08-19 06:42 | PCM.PROGNOTE ---
Patient Problems: Active and Suspected Problems Delayed wound healing (Acute) H/O alcohol abuse (Acute) H/O drug abuse (Acute) Osteomyelitis of right foot (Acute) Hammer toe of right foot (Acute) Diabetic foot infection (Acute) Cellulitis (Acute) Hyperlipidemia (Acute) Subjective: This 64-year-old male was seen bedside for chronic ulcer of the right foot that is now probing to bone. He had a prior fourth ray resection from October 2018 at the [place]. He relates redness, swelling, and status progression approximately 10 days ago in which he presented to healthcare facility yesterday. He denies current fever, chill, nausea, vomiting or pain to the foot this morning. He would like to discuss surgical nonsurgical options. He did see a power and recovery superintendent at the [place] who recommended a transmetatarsal amputation which the patient would like to discuss further prior to proceeding this morning. He also like to review his MRI. He denies claudication symptoms. He does have some rest sensation alteration and nonpainful ulcer formation which is consistent with neuropathy status. - Physical Exam Vitals/I&O's: Vital Signs Temp Pulse Resp BP Pulse Ox 98.4 F 86 18 137/81 H 97 08/19/19 03:30 08/19/19 03:30 08/19/19 03:30 08/19/19 03:30 08/19/19 03:30 Oxygen Delivery Method Room Air Weight: 104.054 kg Body Mass Index (BMI) 33.8 Finger Stick Blood Glucose 177 Intake and Output for Last 24 Hours 08/17/19 08/18/19 08/19/19 23:59 23:59 23:59 Intake Total 840.25 / 1640.25 3146.00 / 3146.00 Output Total 1500 / 1500 Balance 840.25 / 1140.25 1646.00 / 1646.00 General: Alert, Oriented x3, Cooperative HEENT: Atraumatic Extremities: No cyanosis, Capillary Refill Less than 3 Seconds, No Calf Tenderness - Negative Karen and Taylor sign bilateral, Edema, Peripheral Pulses Normal - Palpable DP pulse right and difficult to palpate PT pulse right potentially secondary to edema. No evidence of acute ischemia noted in the entire foot is warm to touch., - - Decreased ankle joint dorsiflexion with the knee extended right dorsal contraction of lesser toes of the right foot with metatarsal heads that are prominent and fourth ray resection noted Skin: Ulcer/ Wound - Seropurulent less than 1 cc drainage sub-third metatarsal head ulcer positive probe to bone peripheral callus and fibrous base. Erythema has apparently reduced in intensity compared to yesterday and his peripheral skin is hairless and atrophic on the foot. There is hair to the lower leg Musculoskeletal: No Tenderness to Palpation of Joints or Extremities, Muscle Wasting Neurological: - - Lack of normal epicritic sensation light touch consistent with neuropathy status Psych/Mental Status: Normal Affect, Appropriate Laboratory Results 08/18/19 12:45: WBC 7.0, RBC 4.76, Hgb 13.7, Hct 42.4, MCV 89.1, MCH 28.8, MCHC 32.3, RDW Std Deviation 43.5, RDW Coeff of Hakeem 13.2, Plt Count 143 L, MPV 9.8, Immature Gran % (Auto) 0.400, Neut % (Auto) 71.9 H, Lymph % (Auto) 15.5 L, Frio % (Auto) 9.9, Eos % (Auto) 1.9, Baso % (Auto) 0.4, Absolute Neuts (auto) 5.0, Absolute Lymphs (auto) 1.08, Nucleated RBC % 0, ESR 26 H 08/18/19 12:45: Sodium 137, Potassium 4.2, Chloride 102, Carbon Dioxide 30.0, Anion Gap 5, BUN 15, Creatinine 0.88, Estim Creat Clear Calc 95.84, Est GFR (MDRD) Af Amer 111, Est GFR (MDRD) Non-Af 92, BUN/Creatinine Ratio 17.0, Glucose 174 H, Calcium 9.1, Total Bilirubin 1.50 H, Direct Bilirubin 0.34 H, AST 19, ALT 32, Alkaline Phosphatase 57, C-React Prot Ext Range 114.00 H, Total Protein 8.0, Albumin 3.7, Globulin 4.3 H 08/18/19 12:45: Lactic Acid 1.1 08/18/19 15:45: S.aureus Protein A PCR POSITIVE H, MRSA (PCR) POSITIVE H 08/18/19 16:29: POC Glucose 145 H 08/18/19 21:39: POC Glucose 154 H 08/19/19 05:48: WBC 4.8, RBC 4.27 L, Hgb 12.1 L, Hct 37.6 L, MCV 88.1, MCH 28.3, MCHC 32.2, RDW Std Deviation 42.0, RDW Coeff of Hakeem 13.1, Plt Count 120 L, MPV 9.5, Immature Gran % (Auto) 0.400, Neut % (Auto) 68.4, Lymph % (Auto) 18.2 L, Frio % (Auto) 9.1, Eos % (Auto) 3.3, Baso % (Auto) 0.6, Absolute Neuts (auto) 3.3, Absolute Lymphs (auto) 0.88, Nucleated RBC % 0 08/19/19 05:48: Sodium Pending, Potassium Pending, Chloride Pending, Carbon Dioxide Pending, Anion Gap Pending, BUN Pending, Creatinine Pending, Est GFR (MDRD) Af Amer Pending, Est GFR (MDRD) Non-Af Pending, BUN/Creatinine Ratio Pending, Glucose Pending, Calcium Pending, Total Bilirubin Pending, AST Pending, ALT Pending, Alkaline Phosphatase Pending, Total Protein Pending, Albumin Pending Current Medications Acetaminophen (Tylenol) 1,000 mg PO Q8H PRN PRN PRN Reason: Pain or Fever Al Hydroxide/Mg Hydroxide (Mylanta Ii) 30 ml PO Q6H PRN PRN PRN Reason: Gastric Burning Albuterol Sulfate (Ventolin Aerosols) 2.5 mg INHALATION Q2H PRN PRN PRN Reason: Shortness of Breath/Wheezing Aspirin ([facility]cotrin) [facility] Atorvastatin Calcium (Lipitor) 5 mg PO QHS [facility] Last Admin: 08/18/19 21:33 Dose: 5 mg Documented by: Calcium Carbonate (Os-Lucho 500) 1,000 mg PO DAILY@0800 [facility] Carvedilol (Coreg) 3.125 mg PO BID [facility] Last Admin: 08/18/19 21:33 Dose: 3.125 mg Documented by: Cholecalciferol (Vitamin D) 2,000 unit PO DAILY [facility] Dextrose (D50w Syringe) 0 gm IV X1 PRN; Protocol PRN Reason: Hypoglycemia Gabapentin (Neurontin) 300 mg PO TID [facility] Last Admin: 08/19/19 05:43 Dose: 300 mg Documented by: Glucagon () 1 mg IM .X1 PRN PRN Reason: Hypoglycemia Piperacillin Sod/Tazobactam (Sod 3.375 gm/ Sodium Chloride) 50 mls @ 12.5 mls/hr IV Q8 [facility] Last Admin: 08/19/19 05:43 Dose: 12.5 mls/hr Documented by: Vancomycin IV Pharmacy to Dose (1 ea/ Sodium Chloride) 500 mls @ 250 mls/hr IV PRN PRN; Protocol PRN Reason: Rx to Dose Vancomycin HCl 2,000 mg/ (Sodium Chloride) 540 mls @ 250 mls/hr IV Q12H [facility] Last Infusion: 08/19/19 05:11 Dose: Infused Documented by: Sodium Chloride () 250 mls @ 15 mls/hr IV .[id number] PRN PRN Reason: Saline Flush Last Infusion: 08/19/19 05:43 Dose: 0 mls/hr Documented by: Insulin Glargine (Lantus ([facility])) 20 units SC QHS [facility] Last Admin: 08/18/19 21:39 Dose: 20 units Documented by: Insulin Human Lispro (Humalog Kwikpen ([facility])) 0 unit SC ACHS [facility]; Protocol Last Admin: 08/18/19 21:44 Dose: 1 u Documented by: Losartan Potassium (Cozaar) 50 mg PO DAILY [facility] Melatonin (Melatonin) 6 mg PO QHS PRN PRN Reason: SLEEP Nitroglycerin (Nitrostat) 0.4 mg SUBLINGUAL Q5M PRN PRN Reason: CARDIAC/CHEST PAIN Nutritional Formula (Lactose Free) (Glucerna Shake) 120 ml PO 4X/DAY [facility] Last Admin: 08/18/19 21:43 Dose: 120 ml Documented by: Ondansetron HCl (Zofran) 4 mg IV Q8H PRN PRN PRN Reason: NAUSEA/VOMITING Pantoprazole Sodium (Protonix) 20 mg PO DAILY [facility] Senna/Docusate Sodium (Senokot-S, Marla-Colace) 2 tablet PO BID PRN PRN PRN Reason: Constipation Medical Necessity - Tobacco Use Smoking Status: Former smoker Tobacco Use: Non-smoker Assessment/Plan All Active Problems Delayed wound healing (Acute) H/O alcohol abuse (Acute) H/O drug abuse (Acute) Osteomyelitis of right foot (Acute) Hammer toe of right foot (Acute) Diabetic foot infection (Acute) Cellulitis (Acute) Hyperlipidemia (Acute) Preop cardiovascular exam (Acute) Troponin I above reference range (Acute) Anxiety (Acute) Stroke (Acute) Right foot ulceration down to bone Cellulitis and osteomyelitis right foot Diabetes w/ peripheral neuropathy Right foot deformity (absent 4th toe and 4th met head) Reviewed diagnostic data. WBC normal, ESR slightly elevated, CRP elevated, right foot xrays reviewed, no gas or evidence of radiographic osteomyelitis. However suspect osteomyelitis due to signs/symptom of infection with ulceration probing to bone. A MRI has been ordered for further evaluation and was reviewed this morning with osteomyelitis of the third metatarsal head and third toe proximal phalanx. Lower extremity arterial studies, noninvasive, have been ordered well. He has right lower extremity triphasic flow and an LOPEZ of 1.2 which demonstrates expected perfusion to support healing. A culture has been obtained from the ulceration, as well as blood cultures, which are pending. Patient on broad spectrum antibiotics, and Infectious Disease has been consulted. Continue with local wound care -saline with gauze packed with overlying gauze, kerlix and juliet dressing. Keep right foot elevated, no weightbearing to the right foot. We discussed possible nonsurgical vs surgical options including third metatarsal phalangeal joint resection, transmetatarsal amputation with gastrocnemius recession, or local wound care with hyperbaric oxygen therapy and IV antibiotics long-term course. He is amendable to proceed with the more definitive recommended procedure of a transmetatarsal amputation with gastrocnemius recession to address his infection status as well as his deformity status. I will discuss the case with medical team to see if he is medically stable to go this afternoon. The patient also relates he would like to speak with his long-term nurse prior to definitively proceeding this afternoon and he will let me know by 8 AM. He is tentatively made n.p.o. at this time. The preoperative indication, planned procedure, possible benefits, risk, complications, anticipated healing time is were discussed in detail with the patient. He understands and elects to proceed with surgery after he speaks with his nurse. He understands risks and complications include but are not limited to the following: Pain, swelling, scarring, need for further surgery, continued infection, continued delayed or nonhealing, deformity progression and contracture, chronic pain, blood clot, allergic reaction, loss of limb, function, life. No guarantees were made. I answered all his questions. Informed surgical consent in the limb will need to be signed upon confirmation moving forward. [facility] facility placement postoperative will also be considered. As noted she has many stairs and reports would not feel safe returning home afterward if he needs to maintain a strict nonweightbearing status during the early healing phases. Diabetes and medical management per medicine team. Podiatry will continue to follow. Please do not hesitate to call if any questions. Leanne Medrano DPM, [facility] [phone]
[2019-08-19 06:52] LABS: ALB/GLOB Ratio 0.8 RATIO (0.9-2.4); AST(SGOT) 18 U/L (15-37); Alanine Aminotransfer ALT/SGPT 25 U/L (16-61); Alkaline Phosphatase 49 U/L (45-117); Anion Gap 4 (5-15); BUN 13 mg/dL (7-18); BUN/Creat Ratio 16.7 RATIO (10-20); Calcium,Total 8.7 mg/dL (8.5-10.1); Chloride 111 mmol/L (98-107); Creatinine, Serum 0.78 mg/dL (0.70-1.30); EST Glomerular Filtration Rate 107 mL/min (>60); Est Glom Filt Rate - Afr Amer 129 mL/min (>60); Estimated Creatinine Clearance 95.68 ml/min; Globulin 3.8 g/dL (2.2-4.2); Glucose 159 mg/dL (74-106); Potassium 4.1 mmol/L (3.5-5.1); Protein, Total 6.8 g/dL (6.4-8.2); Sodium Level 142 mmol/L (136-145)
--- NOTE | 2019-08-19 07:56 | NURSING ---
Dr Medrano had been in this am and changed dressing to the right foot. patient deciding whether he wants to have surgery or not. this was recommended by Dr Medrano. Did not remove dressing at this time since Dr Medrano had recently changed this. had assessed the foot yesterday afternoon. pt states the swelling appears to have decreased slightly.
--- NOTE | 2019-08-19 09:27 | EKG12_ITS ---
Test Reason : ROUTINE Blood Pressure : / mmHG Vent. Rate : 080 BPM Atrial Rate : 080 BPM P-R Int : 164 ms QRS Dur : 130 ms QT Int : 402 ms P-R-T Axes : 043 -26 011 degrees QTc Int : 463 ms Normal sinus rhythm Right bundle branch block Abnormal ECG When compared with ECG of 09-OCT-2017 06:55, Premature ventricular complexes are no longer Present Confirmed by JESUS RECINOS, COREY ([id number]), continuity editor MARYLOU WILEY ([id number]) on 08/26/2019 1:19:53 PM Referred By: TERRA Confirmed By:NADER LEE MD
[2019-08-19] MEDS: Pantoprazole Sodium 20 MG Tablet PO (09:49)
[2019-08-19] MEDS: Carvedilol 3.125 MG TABLET PO ×2 (09:49→21:44)
--- NOTE | 2019-08-19 09:54 | CASEMGMT ---
RN CM Note: Intro role of CM to patient and his Francy. Explained [place] and option to stay @ [facility] for surgery and post-op care or transfer to [facility] for treatment. Discussed Medicare deductible for Inpt hospital stay (pt has not used medicare previously) is approx $1364.00 and there may be other copays involved. Also let pt know if transferring to [place], would need to wait with surgery until bed is available unless it is deemed emergent. Discussed that [place] will not pay copays or uncovered expenses from [facility]. Pt and would like to stay @ [facility] for treatment under [facility] benefits. Declination to transfer form explained and signed by pt. Copy and clinicals faxed to [place] [facility]. Copy to chart. Franky ZUNIGA RN ACM
--- NOTE | 2019-08-19 10:05 | CON.PCM_ITS ---
Problem List (1) Osteomyelitis of right foot Status: Acute Reason for Consult: osteo Consulted by: Dr. Johnson History of Present Illness: The patient is a 64 year old M with DM neuropathy, toe amputation 10/2018 at [place] for R foot osteo. Has h/o IVDU, cocaine, meth, opiates. Sober for 1.5 years. Has had successful treatment for hep C. Foot stable for past 6 months until this past week after podiatry visit with calluses shaved and bleeding afterwards. Developed shakes, chills, foot redness/swelling/severe pain/serosanguinous drainage. No recent abx. Pain was rated 8/10. Came to ED here, started vanc/zosyn, seen by podiatry, TMA planned. Full ROS performed and neg except as noted above. - Medical History Past Medical History (Chronic Problems): Chronic Problems 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) Hypertension (Chronic) Diabetes (Chronic) Allergies/Adverse Reactions: Allergies morphine Adverse Reaction (Verified 08/18/19 11:57) Gets mean Home Medications: Ambulatory Orders Medication Instructions Recorded Aspirin [Aspir-Low] 81 mg PO DAILY 04/30/17 Insulin Glargine [Lantus SoloStar 20 units SC QHS 04/30/17 Pen] Melatonin 6 mg PO QHS PRN 04/30/17 Atorvastatin Calcium 5 mg PO QHS 08/18/19 Carvedilol 3.125 mg PO BID 08/18/19 Cholecalciferol (Vitamin D3) 2,000 unit PO DAILY 08/18/19 [Vitamin D3] DiphenhydrAMINE [Benadryl] 25 mg PO QHS PRN 08/18/19 Gabapentin [Neurontin] 300 mg PO TID 08/18/19 Metformin HCl 1,000 mg PO BID 08/18/19 - Social History Tobacco Use: non-smoker Vital Signs Temp Pulse Resp BP Pulse Ox 98.1 F 82 18 138/97 H 96 08/19/19 09:57 08/19/19 09:57 08/19/19 09:57 08/19/19 09:57 08/19/19 09:57 Oxygen Delivery Method Room Air Weight: 104.054 kg Body Mass Index (BMI) 33.8 Finger Stick Blood Glucose 177 Microbiology Past 72 Hours 08/18/19 15:45 Gram Stain - Final Wound - Right Foot Laboratory Tests Past 24 Hrs 08/18/19 08/18/19 08/18/19 12:45 12:45 12:45 WBC 7.0 RBC 4.76 Hgb 13.7 Hct 42.4 MCV 89.1 MCH 28.8 MCHC 32.3 RDW Std Deviation 43.5 RDW Coeff of Hakeem 13.2 Plt Count 143 L MPV 9.8 Immature Gran % (Auto) 0.400 Neut % (Auto) 71.9 H Lymph % (Auto) 15.5 L [place] % (Auto) 9.9 Eos % (Auto) 1.9 Baso % (Auto) 0.4 Absolute Neuts (auto) 5.0 Absolute Lymphs (auto) 1.08 Nucleated RBC % 0 ESR 26 H Sodium 137 Potassium 4.2 Chloride 102 Carbon Dioxide 30.0 Anion Gap 5 BUN 15 Creatinine 0.88 Estim Creat Clear Calc 95.84 Est GFR (MDRD) Af Amer 111 Est GFR (MDRD) Non-Af 92 BUN/Creatinine Ratio 17.0 Glucose 174 H Lactic Acid 1.1 Calcium 9.1 Total Bilirubin 1.50 H Direct Bilirubin 0.34 H AST 19 ALT 32 Alkaline Phosphatase 57 C-React Prot Ext Range 114.00 H Total Protein 8.0 Albumin 3.7 Globulin 4.3 H Albumin/Globulin Ratio S.aureus Protein A PCR MRSA (PCR) 08/18/19 08/19/19 08/19/19 15:45 05:48 05:48 WBC 4.8 RBC 4.27 L Hgb 12.1 L Hct 37.6 L MCV 88.1 MCH 28.3 MCHC 32.2 RDW Std Deviation 42.0 RDW Coeff of Hakeem 13.1 Plt Count 120 L MPV 9.5 Immature Gran % (Auto) 0.400 Neut % (Auto) 68.4 Lymph % (Auto) 18.2 L [place] % (Auto) 9.1 Eos % (Auto) 3.3 Baso % (Auto) 0.6 Absolute Neuts (auto) 3.3 Absolute Lymphs (auto) 0.88 Nucleated RBC % 0 ESR Sodium 142 Potassium 4.1 Chloride 111 H Carbon Dioxide 27.0 Anion Gap 4 L BUN 13 Creatinine 0.78 Estim Creat Clear Calc 95.68 Est GFR (MDRD) Af Amer 129 Est GFR (MDRD) Non-Af 107 BUN/Creatinine Ratio 16.7 Glucose 159 H Lactic Acid Calcium 8.7 Total Bilirubin 0.90 Direct Bilirubin AST 18 ALT 25 Alkaline Phosphatase 49 C-React Prot Ext Range Total Protein 6.8 Albumin 3.0 L Globulin 3.8 Albumin/Globulin Ratio 0.8 L S.aureus Protein A PCR POSITIVE H MRSA (PCR) POSITIVE H - Other Studies Radiology: [] reviewed Other Studies: [] Route of nutrition/ use of supplements: [] Nutritional Intake: [] IV Site: [] Bernal Catheter: [] - Physical Exam General: Alert, Oriented x3, Cooperative, No apparent distress HEENT: Atraumatic, PERRLA, EOMI, Normocephalic Neck: Supple, No Nodes Lungs: Clear to auscultation, Normal air movement Cardiovascular: Regular rate, Regular Rhythm, Murmur - soft RUSB Abdomen: Soft, Non Tender, Non-Distended Extremities: Edema Skin: Ulcer/ Wound - R foot wrapped IV Site: Peripheral, without redness Musculoskeletal: No Tenderness to Palpation of Joints or Extremities Neurological: Cranial nerves II-XII grossly intact - Assessment/Plan Antibiotics: [] Assessment/Plan: [] Active and Suspected Problems Delayed wound healing (Acute) H/O alcohol abuse (Acute) H/O drug abuse (Acute) Osteomyelitis of right foot (Acute) Hammer toe of right foot (Acute) Diabetic foot infection (Acute) Cellulitis (Acute) Hyperlipidemia (Acute) R foot osteo - on vanc/zosyn, cxs pending, TMA planned. MRSA pcr (+). Will follow, thank you. D/w Dr. Johnson
--- NOTE | 2019-08-19 10:09 | PN_ITS ---
Patient Problems: Active and Suspected Problems Delayed wound healing (Acute) H/O alcohol abuse (Acute) H/O drug abuse (Acute) Osteomyelitis of right foot (Acute) Hammer toe of right foot (Acute) Diabetic foot infection (Acute) Cellulitis (Acute) Hyperlipidemia (Acute) Subjective: Follow-up on right diabetic foot infection/osteomyelitis Patient was seen and examined. His pain is controlled. Podiatry recommends transmetatarsal amputation. Patient is in agreement. [facility]. No chills. He feels improved. His vitals look stable. MRI of the right foot showed mild osteomyelitis in the head of the third metatarsal bone and in the base of the third proximal phalanx. There is an open soft tissue ulcer with a sinus tract tracking up to the third metatarsal head, associated cellulitis of the plantar aspect of the foot. Healed fracture deformity of the head/ neck junction, second proximal phalanx and diffuse reactive edema Objective: Physical exam: General: Alert, Oriented x3, Cooperative, No apparent distress HEENT: Atraumatic, PERRLA, EOMI, Normocephalic Oral: Moist Mucosa Neck: Supple Lungs: Clear to auscultation, Normal air movement Cardiovascular: Regular rate, Regular Rhythm, Normal S1, Normal S2, No murmurs Abdomen: Bowel Sounds Present, Soft, Non Tender, Non-Distended, No Hepato- splenomegaly Extremities: Improved edema of right lower leg, dressing and MITCHELL-wraps to right fot Skin: - - see fot exam Musculoskeletal: Tenderness - to the foot Lymphatic: No Cervical, Supraclavicular, or Inguinal Adenopathy Neurological: Cranial nerves II-XII grossly intact, Neuro grossly intact Psych/Mental Status: Normal Affect, Appropriate Vitals/I&O's: Vital Signs Temp Pulse Resp BP Pulse Ox 98.1 F 82 18 138/97 H 96 08/19/19 09:57 08/19/19 09:57 08/19/19 09:57 08/19/19 09:57 08/19/19 09:57 Oxygen Delivery Method Room Air Weight: 104.054 kg Body Mass Index (BMI) 33.8 Finger Stick Blood Glucose 177 Intake and Output for Last 24 Hours 08/17/19 08/18/19 08/19/19 23:59 23:59 23:59 Intake Total 840.25 / 1640.25 3402.25 / 3402.25 Output Total 1500 / 1500 Balance 840.25 / 1140.25 1902.25 / 1902.25 Microbiology Past 72 Hours 08/18/19 15:45 Wound - Right Foot Gram Stain - Final Laboratory Results 08/18/19 12:45: WBC 7.0, RBC 4.76, Hgb 13.7, Hct 42.4, MCV 89.1, MCH 28.8, MCHC 32.3, RDW Std Deviation 43.5, RDW Coeff of Hakeem 13.2, Plt Count 143 L, MPV 9.8, Immature Gran % (Auto) 0.400, Neut % (Auto) 71.9 H, Lymph % (Auto) 15.5 L, Potter % (Auto) 9.9, Eos % (Auto) 1.9, Baso % (Auto) 0.4, Absolute Neuts (auto) 5.0, Absolute Lymphs (auto) 1.08, Nucleated RBC % 0, ESR 26 H 08/18/19 12:45: Sodium 137, Potassium 4.2, Chloride 102, Carbon Dioxide 30.0, Anion Gap 5, BUN 15, Creatinine 0.88, Estim Creat Clear Calc 95.84, Est GFR (MDRD) Af Amer 111, Est GFR (MDRD) Non-Af 92, BUN/Creatinine Ratio 17.0, Glucose 174 H, Calcium 9.1, Total Bilirubin 1.50 H, Direct Bilirubin 0.34 H, AST 19, ALT 32, Alkaline Phosphatase 57, C-React Prot Ext Range 114.00 H, Total Protein 8.0, Albumin 3.7, Globulin 4.3 H 08/18/19 12:45: Lactic Acid 1.1 08/18/19 15:45: S.aureus Protein A PCR POSITIVE H, MRSA (PCR) POSITIVE H 08/18/19 16:29: POC Glucose 145 H 08/18/19 21:39: POC Glucose 154 H 08/19/19 05:48: WBC 4.8, RBC 4.27 L, Hgb 12.1 L, Hct 37.6 L, MCV 88.1, MCH 28.3, MCHC 32.2, RDW Std Deviation 42.0, RDW Coeff of Hakeem 13.1, Plt Count 120 L, MPV 9.5, Immature Gran % (Auto) 0.400, Neut % (Auto) 68.4, Lymph % (Auto) 18.2 L, Potter % (Auto) 9.1, Eos % (Auto) 3.3, Baso % (Auto) 0.6, Absolute Neuts (auto) 3.3, Absolute Lymphs (auto) 0.88, Nucleated RBC % 0 08/19/19 05:48: Sodium 142, Potassium 4.1, Chloride 111 H, Carbon Dioxide 27.0, Anion Gap 4 L, BUN 13, Creatinine 0.78, Estim Creat Clear Calc 95.68, Est GFR (MDRD) Af Amer 129, Est GFR (MDRD) Non-Af 107, BUN/Creatinine Ratio 16.7, Glucose 159 H, Calcium 8.7, Total Bilirubin 0.90, AST 18, ALT 25, Alkaline Phosphatase 49, Total Protein 6.8, Albumin 3.0 L, Globulin 3.8, Albumin/Globulin Ratio 0.8 L Current Medications Acetaminophen (Tylenol) 1,000 mg PO Q8H PRN PRN PRN Reason: Pain or Fever Al Hydroxide/Mg Hydroxide (Mylanta Ii) 30 ml PO Q6H PRN PRN PRN Reason: Gastric Burning Albuterol Sulfate (Ventolin Aerosols) 2.5 mg INHALATION Q2H PRN PRN PRN Reason: Shortness of Breath/Wheezing Aspirin (Ecotrin) 81 mg PO DAILYCM [facility] Last Admin: 08/19/19 09:19 Dose: Not Given Documented by: Atorvastatin Calcium (Lipitor) 5 mg PO QHS [facility] Last Admin: 08/18/19 21:33 Dose: 5 mg Documented by: Calcium Carbonate (Os-Lucho 500) 1,000 mg PO DAILY@0800 [facility] Last Admin: 08/19/19 09:20 Dose: Not Given Documented by: Carvedilol (Coreg) 3.125 mg PO BID [facility] Last Admin: 08/19/19 09:49 Dose: 3.125 mg Documented by: Cholecalciferol (Vitamin D) 2,000 unit PO DAILY [facility] Last Admin: 08/19/19 09:50 Dose: 2,000 unit Documented by: Dextrose (D50w Syringe) 0 gm IV X1 PRN; Protocol PRN Reason: Hypoglycemia Gabapentin (Neurontin) 300 mg PO TID [facility] Last Admin: 08/19/19 05:43 Dose: 300 mg Documented by: Glucagon () 1 mg IM .X1 PRN PRN Reason: Hypoglycemia Piperacillin Sod/Tazobactam (Sod 3.375 gm/ Sodium Chloride) 50 mls @ 12.5 mls/hr IV Q8 [facility] Last Infusion: 08/19/19 09:43 Dose: Infused Documented by: Vancomycin IV Pharmacy to Dose (1 ea/ Sodium Chloride) 500 mls @ 250 mls/hr IV PRN PRN; Protocol PRN Reason: Rx to Dose Vancomycin HCl 2,000 mg/ (Sodium Chloride) 540 mls @ 250 mls/hr IV Q12H [facility] Last Infusion: 08/19/19 05:11 Dose: Infused Documented by: Sodium Chloride () 250 mls @ 15 mls/hr IV .[id number] PRN PRN Reason: Saline Flush Last Infusion: 08/19/19 09:43 Dose: 15 mls/hr Documented by: Dextrose () 1,000 mls @ 125 mls/hr IV .Q8H [facility] Last Admin: 08/19/19 09:49 Dose: 125 mls/hr Documented by: Insulin Glargine (Lantus (Bkc)) 20 units SC QHS [facility] Last Admin: 08/18/19 21:39 Dose: 20 units Documented by: Insulin Human Lispro (Humalog Kwikpen (Bkc)) 0 unit SC ACHS [facility]; Protocol Last Admin: 08/19/19 06:49 Dose: Not Given Documented by: Losartan Potassium (Cozaar) 50 mg PO DAILY [facility] Last Admin: 08/19/19 09:49 Dose: Not Given Documented by: Melatonin (Melatonin) 6 mg PO QHS PRN PRN Reason: SLEEP Nitroglycerin (Nitrostat) 0.4 mg SUBLINGUAL Q5M PRN PRN Reason: CARDIAC/CHEST PAIN Nutritional Formula (Lactose Free) (Glucerna Shake) 120 ml PO 4X/DAY [facility] Last Admin: 08/19/19 09:20 Dose: Not Given Documented by: Ondansetron HCl (Zofran) 4 mg IV Q8H PRN PRN PRN Reason: NAUSEA/VOMITING Pantoprazole Sodium (Protonix) 20 mg PO DAILY [facility] Last Admin: 08/19/19 09:49 Dose: 20 mg Documented by: Senna/Docusate Sodium (Senokot-S, Marla-Colace) 2 tablet PO BID PRN PRN PRN Reason: Constipation STROKE Vital Signs/Narrative: Vital Signs Temp Pulse Resp BP Pulse Ox 08/19/19 09:57 98.1 F 82 18 138/97 H 96 Medical Necessity - Tobacco Use Smoking Status: Former smoker Tobacco Use: Non-smoker Assessment/Plan All Active Problems Delayed wound healing (Acute) H/O alcohol abuse (Acute) H/O drug abuse (Acute) Osteomyelitis of right foot (Acute) Hammer toe of right foot (Acute) Diabetic foot infection (Acute) Cellulitis (Acute) Hyperlipidemia (Acute) Preop cardiovascular exam (Acute) Troponin I above reference range (Acute) Anxiety (Acute) Stroke (Acute) 64 year old M with past medical history of hypertension, type II DM, who [facility] comes in with complaints of swelling of the right foot as well as erythema and worsening right foot infection. 1. Cellulitis of the right foot/acute on chronic right diabetic foot infection/underlying osteomyelitis in the head of the third metatarsal bone in the base of the third proximal phalanx. Going for Right TMA. Vitals are stable. No leucocytosis. Blood cultures are pending. MRSA PCR positive. On vancomycin and Zosyn. ID and podiatry following. 2. Type II DM, BS are fairly controlled Continue to hold metformin, continue with blood glucose checks with insulin sliding scale 3. Hypertension, continue on home medications, continue to monitor vitals 4. Hyperlipidemia, on statin 5. Chronic hep C, status post treatment, cured per patient History of cirrhosis of the liver, elevation of the total bilirubin and direct bilirubin [facility] 6. Thrombocytopenia, mild, chronic likely secondary to cirrhosis Will continue to monitor whilst on Heparin for DVT PPx 7. DVT prophylaxis with Heparin SC Code Visit Inpatient E&M: 97480 Subs Hosp L2
[2019-08-19 11:25] LABS: Bedside Glucose 147 mg/dL (70-110)
--- NOTE | 2019-08-19 11:26 | CASEMGMT ---
Addendum entered by Aicha Abraham 08/19/19 14:35: SW received message from Asiya at [facility] stating clinical is still reviewing referral and would like to wait to see how pt does after PT/OT, how long pt will be non weight bearing and if pt will be on IV antibiotics. SW will follow up with Asiya tomorrow as pt is having surgery today. Addendum entered by Aicha Abraham 08/19/19 13:17: SW did fax initial referral to [facility] in the event no beds on TCU become available. Addendum entered by Aicha Abraham 08/19/19 11:37: SW also provided pt with Medicare ratings for SNF. Addendum entered by Aicha Abraham 08/19/19 11:34: Also pt denied wanting or needing any substance abuse referrals/information. Original Note: Social Work Note SW met with pt to confirm discharge plans. Pt is alert and orientated x3 and pt's Francy is present in pt's room. Pt gave this worker permission to speak to him in front of his guest. SW introduced self and role at [facility]. Pt states that he is staying at [facility] under his Medicare. SW informed pt that this worker received referral for possible SNF placement. SW explained Medicare guidelines and three midnight stay. SW informed pt that pt will need to have a skilleable need for SNF and that pt may not qualify. SW explained that daily dressing changes doesn't necessary qualify pt for SNF. SW explained that skillable needs include therapy, IV antibiotics, extensive wound care, etc. Pt states well I am going to be non-weight bearing and only be able to move around on one foot does that qualify me? SW explained that no that doesn't necessarily qualify pt as pt could could get a scooter or wheelchair to move around at home. Pt states well I have four steps to enter the home. SW explained that after surgery PT/OT will work with pt and make recommendations in regards to discharge plans. Per ID if pt gets toe amputated then pt can discharge on PO anbx. SW provided pt with list of SNF that accept pt's insurance. Pt asked about unit at [facility]. SW educated pt on TCU but informed pt that at this time, there are no beds on TCU and pt can't stay at [facility] just for a bed to become available. Pt states understanding, states second choice would be for [facility]. SW explained that this worker can put pt on TCU list and make referral to [facility] but also informed pt that this worker will wait until after surgery as pt may be able to discharge home with [facility]. Pt states understanding. SW placed a call to referral line and provided referral. Pt is scheduled for surgery today and this worker will fax referral to [facility] once pt has surgery and PT/OT works with pt after surgery. Plan: TBD pending surgery Aicha Abraham [employer], [employer]AREHOUSING ARCHITECT
--- NOTE | 2019-08-19 13:00 | RAD_ITS ---
STUDY: X-RAY - RIGHT FOOT CLINICAL: Male, 64 years old. Intraoperative visualization of foot amputation TECHNIQUE: 4 fluoroscopic view(s) of the foot. COMPARISON: August 18, 2019 right foot x-ray FINDINGS: The images show new amputation of the distal half of the foot. The distal aspect of the metatarsal bones have been amputated with exception of the fourth metatarsal bone which was previously amputated. The phalanges of the remaining digits have also been amputated. RAD/Foot 2 Views IMPRESSION: Status post amputation of the anterior half of the foot Electronically Signed: Edwin Toro MD at 21:16 EST , Service support ,
--- NOTE | 2019-08-19 13:30 | AMP_PTH ---
PATIENT: DAMON WYLIE LOC: MS3 U#:[id number] AGE/SX: 64/M ROOM: MS319 RE08/18/[address]: Dr. Brie Johnson MD : 1955 BED: 1 DIS: 08/22/2019 SPEC #: [id number] RECD: 08/19/19 16:01 STATUS: HEIKE REMarva #: [id number] PATI: 08/19/19 13:[address]: Leanne Medrano DEPT: SURGICAL PATHOLOGY RECD BY: Tiburcio Coello ENTERED: 08/20/19 09:14 SP TYPE: Amputation OTHR DR: MD Dr. Rohit Montalvo, DPM Dr. Deonte Flowers MD [facility] Tissues: A - Right foot B - Bone of foot, NOS Procedures: Decalcification bone/plaque Special Stain Group I Surgery Specimen Level III Surgery Specimen Level IV AFB Stain (control) GMS Stain (control) HEADER OPERATION: Amputation transmetatarsal, gastroc recession PRE-OP DIAGNOSIS: Right foot ulceration down to bone; cellulitis and osteomyelitis right foot TISSUE SUBMITTED: A - Right foot, B - Right foot clearance fragment MICROSCOPIC DIAGNOSIS A. Right foot, transmetatarsal amputation: Skin with focal ulceration, acute inflammation and granulation tissue reaction. Pieces of bone, negative for acute osteomyelitis. Special stain for fungi is positive for organisms (yeast and pseudohypae); matched control is appropriate. See comment. Special stain for acid fast bacilli is negative for organisms; matched control is appropriate. B. Right foot clearance fragment: Pieces of bone, negative for acute osteomyelitis. SJ:ruby 08/25/19 COMMENT Fungal organisms are noted in the nail with brownish black discoloration. Case has been reviewed in consultation with Dr. Gtz who concurs with the above diagnosis. IDC:AM MICROSCOPIC DESCRIPTION Slides are reviewed. GROSS DESCRIPTION A - Received in fixative is one container labeled with the patient's name and designated right foot. The specimen consists of a portion of foot containing four toes, great toe, two adjacent toes and little toe. The fourth toe is absent. The foot measures 11.5 x 8 x 3 cm. Nails are present in all four toes and appear atrophic. The nail of second toe shows brownish-black discoloration. Also present in the container is one detached piece of skin with underlying tissue measuring 5 x 3 x 2 cm. A focal area of ulceration is noted measuring 1.5 x 1 cm. There are six detached pieces of bone with some of the pieces consistent with metatarsal bone measuring in aggregate 7 x 7 x 3 cm. Sand Conditioner sections are submitted in five cassettes as follows: 1 & 2 - soft tissue (1 also contains the nail with blueish-black discoloration), 3-5 - bone after decalcification. B - Received in fixative is one container labeled with the patient's name and designated right foot clearance fragment. The specimen consists of two fragments of bone measuring in aggregate 0.5 x 0.3 x 0.2 cm. The entire specimen is submitted in one cassette after decalcification. / ROVERTO:ruby 08/20/19 TC:2 CPT: 38000, 48837, 93402 x2, 13024 x2
[2019-08-19] MEDS: Bupivacaine Mpf 0.5% 30 ML VIAL (14:15)
--- NOTE | 2019-08-19 15:53 | OP.PCM_ITS ---
Problem List (1) Non-pressure chronic ulcer of other part of right foot with fat layer exposed Status: Chronic (2) Type 2 diabetes mellitus with diabetic polyneuropathy Status: Chronic (3) Delayed wound healing Status: Chronic (4) Osteomyelitis of right foot Status: Chronic (5) Hammer toe of right foot Status: Chronic Report of Operation Date of Procedure: 08/19/19 Pre-Operative Diagnosis: osteomyelitis of third toe and metatarsal head. gastrocnemius equinus right Post-Operative Diagnosis: osteomyelitis of third toe and metatarsal head. gastrocnemius equinus right Surgery/Procedure Performed:: transmetatarsal amputation right. open gastr ocnemius recession right lower extremity Description of Surgical Findings:: Hemostasis: Well-padded pneumatic right thigh tourniquet, 315 mmHg, 31 minutes Materials: 2-0 Vicryl, 2-0 and 3-0 nylon Specimens: Sent to microbiology and pathology Complicated: None The patient tolerated the procedure and anesthesia well. He was transported to the PACU with vital signs stable and vascular status intact to the right lower extremity. Postoperative x-rays were reviewed prior to leaving the operating room with adequate transmetatarsal amputation performed with maintained balance parabola. There are no acute injuries or foreign body. He will be transferred back to the medical surgical floor upon continued stability. His orders were entered electronically. manager financial: none - surgeon: Leanne Medrano DPM Type of Anesthesia:: General, Local - Preoperative: One-to-one mixture of 1% lidocaine plain and 0.5% Marcaine plain administered in typical right ankle block fashion, 17 cc Intraoperative: 5 cc of 1% lidocaine with epinephrine administered an infiltrative manner at gastrocnemius recession site Specimen's removed: 1. Right foot soft tissue and bone to pathology. 2. Right foot clearance fragment bone to pathology. 3. Right foot clearance fragment bone to microbiology for aerobic, anaerobic, acid-fast, fungal Estimated Blood Loss (mL): < 200 mL Description of Procedure: Indications: This 64-year-old male with significant past medical history of diabetes with neuropathy, hypertension, hyperlipidemia, history of alcohol and polysubstance abuse, liver cirrhosis, thrombocytopenia, history of stroke presents with a chronic right foot forefoot deformity with recurrent infections, osteomyelitis, ulcers, and amputations (4th ray resection). He elects to proceed with a curative transmetatarsal amputation surgery. It is also noted that he had a noninvasive arterial study performed which demonstrates normal perfusion and no peripheral vascular disease is suspected at this time. The preoperative indications, planned procedure, possible benefits, risk, complications, and anticipated healing time and management were discussed with the patient. He understands and elects to proceed with surgery at this time. The informed consent and surgical limb were signed. No guarantees were made. He understands risks and complications include but are not limited to the following: pain, swelling, scarring, need for further surgery, allergic reaction, blood clot, loss of limb, function, life, chronic pain syndrome, transfer lesion, need for revisional surgery, over under correction. The preoperative radiographs revealed previous fourth ray resection and no acute fracture, dislocation, soft tissue emphysema, osseous destruction or foreign body. Preoperative MRI demonstrates increased T2 intensity corresponding decreased T1 intensity at the third metatarsal head and proximal phalanx base of the third toe and this findings consistent with osteomyelitis. His ulcer that is sub-third metatarsal head also probes to this bone structure. His preoperative history and physical with clearance exam was reviewed and discussed with Dr. Johnson. His preoperative diagnostic data was also reviewed without acute gross abnormality including lab work. He is considered low to moderate risk. I answered all of his questions. Procedure in detail: The patient was transported to the operating room via cart and placed on the operating table in the supine position. Final verification of patient, surgery, limb designation was performed via the timeout procedure. LMA was initiated by the anesthesia team. The podiatry team administered the local anesthetic to the right lower extremity. A well-padded pneumatic right thigh tourniquet was placed. The right lower extremity was prepped and draped in the usual aseptic manner. Surgery began in the following manner without a tourniquet in place: Attention was first directed to the posterior medial aspect of the lower right leg approximately three fingerbreadths distal to the medial gastrocnemius head. Intra operative lidocaine with epinephrine was administered at the gastrocnemius recession site. The incision was approximately three centimeters in length was made through the skin. Care was taken to identify, protect, and retract all neurovascular structures at this point and throughout the remainder of the procedure. Blunt dissection was performed down to the fascial layer in which a rent was made to enter and expose the gastrocnemius aponeurosis. This was isolated from adjacent structures and was carefully released in a transverse total manner. This wound was irrigated with normal saline and deep closure was performed with 2-0 Vicryl. The skin was reapproximated with 4-0 nylon utilizing horizontal mattress technique. Increased ankle dorsiflexion was noted after this release was performed with the knee extended. Next, an Esmarch bandage was used to exsanguinate the right lower extremity and the tourniquet was inflated at this time. Attention was directed to the right foot in which a fishmouth incision was made to the forefoot and the soft tissue was reflected off of the distal metatarsals to the midshaft region. A sagittal saw was used to create the transmetatarsal amputation bone cuts taking care to bevel these cuts and maintain a good parabola. Next, the remainder of the forefoot was removed in total from the table. It is noted that there was no purulence, necrosis, or infection at this time. Healthy bleeding tissue was noted. Any additional avascular structures such as tendons and plantar plates were carefully dissected and removed from the open amputation flap site. The x- ray was obtained at this time demonstrating adequate resection without acute injury, foreign body, or fracture. Copious saline irrigation was performed. At this time clean gloves, instrumentation, and adjacent drapes were applied. A clearance fragment was obtained from the third metatarsal bone cut site and this was sent to both microbiology and pathology. The tourniquet was deflated and the flap was remodeled in a complex closure layered manner. At this point in the surgery, no necrosis or infection was noted. Capillary fill time was brisk and noted to dorsal and plantar aspect of the amputation site and adequate perfusion was also noted indicative of healing potential. Hemostasis was controlled and electrocauterization and pressure were used to control bleeding. Deep closure was achieved with 2-0 Vicryl and the skin was reapproximated with 2-0 and 3-0 nylon utilizing horizontal, vertical mattress, and retention simple sutures. A postoperative dressing consisting of Adaptic soaked in betadine, 4 x 4 gauze, abdominal pads, Kerlix, and webril was applied. An additional well- padded posterior mold was applied with the right lower extremity in a rectus position and this was secured with an Julián wrap. After procedure: The patient tolerated the procedure and anesthesia well. He was transported to the PACU with vital signs stable and vascular status intact to the right lower extremity. He was advised to ice and elevate for pain and inflammation management. Pain medication will also be ordered if needed. He does have a history of polysubstance abuse and does not plan to take any narcotic medication while in house. He currently has Tylenol ordered. Limited dosage of Toradol will also be considered if needed. It is noted he is only on a low-dose aspirin which does not make this a contraindication and his kidney function was reviewed the creatinine of 0.78. He will continue incentive spirometry. Medical management and DVT prophylaxis per medical team is appreciated. DVT prophylaxis will be monitored due to his h/o thrombocytopenia. He was advised to maintain a strict nonweightbearing status to right lower extremity with the use of an assistive device. He will work with physical therapy and will be considered for nursing home facility placement. His postoperative orders were entered elec tronically. Leanne Medrano DPM, [facility] - Complications none - Admit VTE Documentation VTE Present on Admission: No VTE Mechan Device Prophylaxis: SCD's VTE Pharm Prophylaxis ordered?: Yes
[2019-08-19 16:36] LABS: Bedside Glucose 151 mg/dL (70-110)
[2019-08-19] MEDS: Acetaminophen 500 MG Tablet 1000 MG PO (17:37)
[2019-08-19] MEDS: Glucerna Shake 120 ML LIQUID PO (21:43)
[2019-08-19] MEDS: Ketorolac 30 MG/ML Syringe IV (21:43)
[2019-08-19] MEDS: Atorvastatin Calcium 10 MG Tablet 5 MG PO (21:44)
[2019-08-19] MEDS: Insulin Lispro 100 UNIT/ML INSULN.PEN SC (21:46)
[2019-08-19 21:56] LABS: Bedside Glucose 314 mg/dL (70-110)
[2019-08-20 02:35] LABS: Absolute Lymphocyte Count 0.43 X10^3/uL (0.83-4.51); Absolute Neutrophil Count 4.7 X10^3/uL (2.0-7.7); Basophil# 0.01 X10^3/uL; Basophil% 0.2 % (0-1); Eosinophil# 0.02 X10^3/uL; Eosinophils% 0.4 % (0-5); Hematocrit 36.7 % (40-54); Hemoglobin 11.9 g/dL (13.0-16.5); Lymphocyte # 0.43 X10^3/ul (4.0); Lymphocyte % 7.8 % (19-41); Mean Corp Hgb Conc 32.4 g/dL (32-36); Mean Corpuscular Hgb 28.3 pg (27.0-32.0); Mean Corpuscular Volume 87.2 fL (80-94); Mean Platelet Vol. 9.2 fl (6.2-12.0); Monocyte# 0.32 X10^3/uL; Monocyte% 5.8 % (0-10); NRBC Flagged by Analyzer 0 % (0-5); Neutrophil # 4.71 X10^3/uL (2.7-7.7); Neutrophil % 85.4 % (47-70); POSITIVE DIFFERENTIAL YES; Platelet Count 109 K/mm3 (150-450); RBC Distribution Width CV 12.5 % (11.6-14.6); RBC Distribution Width SD 39.9 fl (35.1-43.9); Red Blood Count 4.21 M/mm3 (4.6-6.2); White Blood Count 5.5 K/mm3 (4.4-11.0)
[2019-08-20 02:45] LABS: Differential Indicated SCAN CRITERIA MET
[2019-08-20 03:12] VITALS: BP 124/68; PULSE 80; RESP 18; TEMP 36.4; O2SAT 96
[2019-08-20 03:21] LABS: Vancomycin, Trough Level 18.1 ug/mL (5.0-15.0)
[2019-08-20 03:24] LABS: Anion Gap 7 (5-15); BUN 14 mg/dL (7-18); BUN/Creat Ratio 16.3 RATIO (10-20); Calcium,Total 8.3 mg/dL (8.5-10.1); Chloride 104 mmol/L (98-107); Creatinine, Serum 0.86 mg/dL (0.70-1.30); EST Glomerular Filtration Rate 95 mL/min (>60); Est Glom Filt Rate - Afr Amer 115 mL/min (>60); Estimated Creatinine Clearance 86.78 ml/min; Glucose 299 mg/dL (74-106); Potassium 4.4 mmol/L (3.5-5.1); Sodium Level 138 mmol/L (136-145)
--- NOTE | 2019-08-20 03:33 | PHA.PHARE_ITS ---
Consult Pharmacy has been consulted to manage selected antiobiotic: Vancomycin Type of Consult: Follow-up Suspected Infection: Skin/Soft tissue Labs: Sodium 138 mmol/L (136-145) 08/20/19 02:26 Potassium 4.4 mmol/L (3.5-5.1) 08/20/19 02:26 Chloride 104 mmol/L (98-107) 08/20/19 02:26 Carbon Dioxide 27.0 mmol/L (21.0-32.0) 08/20/19 02:26 Anion Gap 7 (5-15) 08/20/19 02:26 BUN 14 mg/dL (7-18) 08/20/19 02:26 Creatinine 0.86 mg/dL (0.70-1.30) 08/20/19 02:26 Est GFR (MDRD) Af Amer 115 mL/min (>60) 08/20/19 02:26 Est GFR (MDRD) Non-Af 95 mL/min (>60) 08/20/19 02:26 BUN/Creatinine Ratio 16.3 RATIO (10-20) 08/20/19 02:26 Glucose 299 mg/dL (74-106) H 08/20/19 02:26 Vancomycin Trough 18.1 ug/mL (5.0-15.0) H 08/20/19 02:26 Microbiology: Microbiology 08/18/19 15:45 Wound - Right Foot Gram Stain - Final 08/18/19 15:45 Wound - Right Foot Wound Culture - Preliminary Staphylococcus aureus 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 Medications Vancomycin HCl 2,000 mg/ (Sodium Chloride) 540 mls @ 250 mls/hr IV Q12H KAREN Last Admin: 08/20/19 03:11 Dose: 250 mls/hr Documented by: TROUGH 18.1 NO CHANGES, NEXT TROUGH 08/24 Follow-Up Labs: Trough Vancomycin Labs to be done on [date and time ordered]: 08/24 @ 2374
[2019-08-20] MEDS: Acetaminophen 500 MG Tablet 1000 MG PO ×3 (05:10→22:31)
[2019-08-20] MEDS: Gabapentin 300 MG Capsule PO ×3 (05:11→22:31)
[2019-08-20] MEDS: Insulin Lispro 100 UNIT/ML INSULN.PEN SC ×4 (06:38→22:35)
[2019-08-20 06:46] LABS: Bedside Glucose 283 mg/dL (70-110)
--- NOTE | 2019-08-20 07:35 | PN_ITS ---
Patient Problems: Active and Suspected Problems Type 2 diabetes mellitus with diabetic polyneuropathy (Acute) Delayed wound healing (Acute) H/O alcohol abuse (Acute) H/O drug abuse (Acute) Osteomyelitis of right foot (Acute) Hammer toe of right foot (Acute) Diabetic foot infection (Acute) Cellulitis (Acute) Hyperlipidemia (Acute) Subjective: Follow-up for right foot osteomyelitis: Patient was seen and examined. He feels improved. He denied much pain. He is on Tylenol and as needed Toradol. Insistent on getting any narcotics because of his history of IV drug use. No fever or chills. Objective: Physical exam: General: Alert, Oriented x3, Cooperative, No apparent distress HEENT: Atraumatic, PERRLA, EOMI, Normocephalic Oral: Moist Mucosa Neck: Supple Lungs: Clear to auscultation, Normal air movement Cardiovascular: Regular rate, Regular Rhythm, Normal S1, Normal S2, No murmurs Abdomen: Bowel Sounds Present, Soft, Non Tender, Non-Distended, No Hepato- splenomegaly Extremities: Dressing and MITCHELL-wraps to right foot, dry intact Skin: - - see fot exam Musculoskeletal: Tenderness - to the foot Lymphatic: No Cervical, Supraclavicular, or Inguinal Adenopathy Neurological: Cranial nerves II-XII grossly intact, Neuro grossly intact Psych/Mental Status: Normal Affect, Appropriate Vitals/I&O's: Vital Signs Temp Pulse Resp BP Pulse Ox 97.5 F L 80 18 124/68 H 96 08/20/19 03:12 08/20/19 03:12 08/20/19 03:12 08/20/19 03:12 08/20/19 03:12 Oxygen Delivery Method Room Air Weight: 104.05 kg Body Mass Index (BMI) 33.8 Finger Stick Blood Glucose 151 Intake and Output for Last 24 Hours 08/18/19 08/19/19 08/20/19 23:59 23:59 23:59 Intake Total 840.25 / 1640.25 4650.17 / 4650.17 1631.00 / 1631.00 Output Total 2175 / 2175 800 / 800 Balance 840.25 / 1140.25 2475.17 / 2475.17 831.00 / 831.00 Microbiology Past 72 Hours 08/18/19 15:45 Wound - Right Foot Gram Stain - Final 08/18/19 15:45 Wound - Right Foot Wound Culture - Preliminary Staphylococcus aureus 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 Laboratory Results 08/19/19 11:20: POC Glucose 147 H 08/19/19 16:30: POC Glucose 151 H 08/19/19 21:42: POC Glucose 314 H 08/20/19 02:26: Vancomycin Trough 18.1 H 08/20/19 02:26: WBC 5.5, RBC 4.21 L, Hgb 11.9 L, Hct 36.7 L, MCV 87.2, MCH 28.3, MCHC 32.4, RDW Std Deviation 39.9, RDW Coeff of Hakeem 12.5, Plt Count 109 L, MPV 9.2, Immature Gran % (Auto) 0.400, Neut % (Auto) 85.4 H, Lymph % (Auto) 7.8 L, Nance % (Auto) 5.8, Eos % (Auto) 0.4, Baso % (Auto) 0.2, Absolute Neuts (auto) 4.7, Absolute Lymphs (auto) 0.43 L, Nucleated RBC % 0 08/20/19 02:26: Sodium 138, Potassium 4.4, Chloride 104, Carbon Dioxide 27.0, Anion Gap 7, BUN 14, Creatinine 0.86, Estim Creat Clear Calc 86.78, Est GFR (MDRD) Af Amer 115, Est GFR (MDRD) Non-Af 95, BUN/Creatinine Ratio 16.3, Glucose 299 H, Calcium 8.3 L 08/20/19 06:35: POC Glucose 283 H Current Medications Acetaminophen (Tylenol) 1,000 mg PO Q8H PRN PRN PRN Reason: Pain or Fever Last Admin: 08/20/19 05:10 Dose: 1,000 mg Documented by: Al Hydroxide/Mg Hydroxide (Mylanta Ii) 30 ml PO Q6H PRN PRN PRN Reason: Gastric Burning Albuterol Sulfate (Ventolin Aerosols) 2.5 mg INHALATION Q2H PRN PRN PRN Reason: Shortness of Breath/Wheezing Aspirin (Ecotrin) [facility] Last Admin: 08/19/19 09:19 Dose: Not Given Documented by: Atorvastatin Calcium (Lipitor) 5 mg PO QHS [facility] Last Admin: 08/19/19 21:44 Dose: 5 mg Documented by: Calcium Carbonate (Os-Lucho 500) 1,000 mg PO DAILY@0800 [facility] Last Admin: 08/19/19 09:20 Dose: Not Given Documented by: Carvedilol (Coreg) 3.125 mg PO BID [facility] Last Admin: 08/19/19 21:44 Dose: 3.125 mg Documented by: Cholecalciferol (Vitamin D) 2,000 unit PO DAILY [facility] Last Admin: 08/19/19 09:50 Dose: 2,000 unit Documented by: Dextrose (D50w Syringe) 0 gm IV X1 PRN; Protocol PRN Reason: Hypoglycemia Gabapentin (Neurontin) 300 mg PO TID [facility] Last Admin: 08/20/19 05:11 Dose: 300 mg Documented by: Glucagon () 1 mg IM .X1 PRN PRN Reason: Hypoglycemia Piperacillin Sod/Tazobactam (Sod 3.375 gm/ Sodium Chloride) 50 mls @ 12.5 mls/hr IV Q8 [facility] Last Admin: 08/20/19 06:37 Dose: 12.5 mls/hr Documented by: Vancomycin IV Pharmacy to Dose (1 ea/ Sodium Chloride) 500 mls @ 250 mls/hr IV PRN PRN; Protocol PRN Reason: Rx to Dose Vancomycin HCl 2,000 mg/ (Sodium Chloride) 540 mls @ 250 mls/hr IV Q12H [facility] Last Infusion: 08/20/19 05:21 Dose: Infused Documented by: Sodium Chloride () 250 mls @ 15 mls/hr IV .[id number] PRN PRN Reason: Saline Flush Last Infusion: 08/20/19 06:38 Dose: 0 mls/hr Documented by: Insulin Glargine (Lantus (Bkc)) 20 units SC QHS [facility] Last Admin: 08/19/19 21:45 Dose: 20 units Documented by: Insulin Human Lispro (Humalog Kwikpen (Bk)) 0 unit SC ACHS [facility]; Protocol Last Admin: 08/20/19 06:38 Dose: 2 u Documented by: Ketorolac Tromethamine (Toradol) 30 mg IV Q8H PRN PRN PRN Reason: Pain Score 6-10/10 Last Admin: 08/19/19 21:43 Dose: 30 mg Documented by: Losartan Potassium (Cozaar) 50 mg PO DAILY [facility] Last Admin: 08/19/19 09:49 Dose: Not Given Documented by: Melatonin (Melatonin) 6 mg PO QHS PRN PRN Reason: SLEEP Nitroglycerin (Nitrostat) 0.4 mg SUBLINGUAL Q5M PRN PRN Reason: CARDIAC/CHEST PAIN Nutritional Formula (Lactose Free) (Glucerna Shake) 120 ml PO 4X/DAY [facility] Last Admin: 08/19/19 21:43 Dose: 120 ml Documented by: Ondansetron HCl (Zofran) 4 mg IV Q8H PRN PRN PRN Reason: NAUSEA/VOMITING Pantoprazole Sodium (Protonix) 20 mg PO DAILY [facility] Last Admin: 08/19/19 09:49 Dose: 20 mg Documented by: Senna/Docusate Sodium (Senokot-S, Marla-Colace) 2 tablet PO BID PRN PRN PRN Reason: Constipation Sodium Chloride () 10 - 40 ml IV UD PRN PRN Reason: SALINE FLUSH Medical Necessity - Tobacco Use Smoking Status: Former smoker Tobacco Use: Non-smoker Assessment/Plan All Active Problems Type 2 diabetes mellitus with diabetic polyneuropathy (Acute) Delayed wound healing (Acute) H/O alcohol abuse (Acute) H/O drug abuse (Acute) Osteomyelitis of right foot (Acute) Hammer toe of right foot (Acute) Diabetic foot infection (Acute) Cellulitis (Acute) Hyperlipidemia (Acute) Preop cardiovascular exam (Acute) Troponin I above reference range (Acute) Anxiety (Acute) Stroke (Acute) 64 year old M with past medical history of hypertension, type II DM, [facility] in with complaints of swelling of the right foot as well as erythema and worsening right foot infection. 1. POD #1, s/p TMA for osteomyelitis in the head of the third metatarsal bone in the base of the third proximal phalanx. Associated cellulitis of the right foot/MRSA diabetic foot infection Blood cultures are negative. MRSA PCR positive. Intraoperative bone cultures are pending On vancomycin and Zosyn. ID and podiatry following. 2. Type II DM, BS are fairly controlled, will continue on medium scale insulin sliding scale with blood glucose checks 3. Hypertension, continue on home medications, continue to monitor vitals 4. Hyperlipidemia, on statin 5. Chronic hep C, status post treatment History of cirrhosis of the liver, elevation of the total bilirubin and direct bilirubin [facility] 6. Thrombocytopenia, mild, chronic likely secondary to cirrhosis Will continue to monitor whilst on Heparin for DVT PPx 7. DVT prophylaxis with Heparin SC Code Visit Inpatient E&M: 58318 Subs Hosp L2
[2019-08-20 08:00] VITALS: BP 140/82; PULSE 81; RESP 16; TEMP 36.7; O2SAT 98
[2019-08-20] MEDS: Calcium (Elemental) 500 MG Tablet 1000 MG PO (08:05)
[2019-08-20] MEDS: Aspirin E.C. 81 MG Tablet PO (08:06)
[2019-08-20] MEDS: Losartan Potassium 50 MG Tablet PO (10:39)
[2019-08-20] MEDS: Carvedilol 3.125 MG TABLET PO ×2 (10:39→22:31)
[2019-08-20] MEDS: Glucerna Shake 120 ML LIQUID PO ×4 (10:39→22:51)
[2019-08-20] MEDS: Pantoprazole Sodium 20 MG Tablet PO (10:39)
[2019-08-20 12:25] LABS: Bedside Glucose 268 mg/dL (70-110)
--- NOTE | 2019-08-20 12:42 | PN.ID_ITS ---
Patient Problems: Active and Suspected Problems Type 2 diabetes mellitus with diabetic polyneuropathy (Acute) Delayed wound healing (Acute) H/O alcohol abuse (Acute) H/O drug abuse (Acute) Osteomyelitis of right foot (Acute) Hammer toe of right foot (Acute) Diabetic foot infection (Acute) Cellulitis (Acute) Hyperlipidemia (Acute) Subjective: Pain in foot, s/p OR. No fever, no n/v/d. - Physical Exam Vitals/I&O's: Vital Signs Temp Pulse Resp BP Pulse Ox 98.0 F 81 16 140/82 H 98 08/20/19 08:00 08/20/19 08:00 08/20/19 08:00 08/20/19 08:00 08/20/19 08:00 Oxygen Delivery Method Room Air Weight: 104.05 kg Body Mass Index (BMI) 33.8 Finger Stick Blood Glucose 151 Intake and Output for Last 24 Hours 08/18/19 08/19/19 08/20/19 23:59 23:59 23:59 Intake Total 840.25 / 1640.25 4650.17 / 4650.17 1681.00 / 1681.00 Output Total 2175 / 2175 800 / 800 Balance 840.25 / 1140.25 2475.17 / 2475.17 881.00 / 881.00 General: Alert, Cooperative, No apparent distress Lungs: Clear to auscultation, Normal air movement Cardiovascular: Regular rate, Regular Rhythm Abdomen: Soft, Non Tender, Non-Distended Skin: Ulcer/ Wound - R foot wrapped Microbiology Past 72 Hours 08/19/19 16:06 Bone - Right Foot Wound Culture - Preliminary No growth-Final to follow 08/18/19 15:45 Wound - Right Foot Gram Stain - Final 08/18/19 15:45 Wound - Right Foot Wound Culture - Preliminary Meth. resistant Staph. 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 Laboratory Results 08/19/19 16:30: POC Glucose 151 H 08/19/19 21:42: POC Glucose 314 H 08/20/19 02:26: Vancomycin Trough 18.1 H 08/20/19 02:26: WBC 5.5, RBC 4.21 L, Hgb 11.9 L, Hct 36.7 L, MCV 87.2, MCH 28.3, MCHC 32.4, RDW Std Deviation 39.9, RDW Coeff of Hakeem 12.5, Plt Count 109 L, MPV 9.2, Immature Gran % (Auto) 0.400, Neut % (Auto) 85.4 H, Lymph % (Auto) 7.8 L, Owen % (Auto) 5.8, Eos % (Auto) 0.4, Baso % (Auto) 0.2, Absolute Neuts (auto) 4.7, Absolute Lymphs (auto) 0.43 L, Nucleated RBC % 0 08/20/19 02:26: Sodium 138, Potassium 4.4, Chloride 104, Carbon Dioxide 27.0, Anion Gap 7, BUN 14, Creatinine 0.86, Estim Creat Clear Calc 86.78, Est GFR (MDRD) Af Amer 115, Est GFR (MDRD) Non-Af 95, BUN/Creatinine Ratio 16.3, Glucose 299 H, Calcium 8.3 L 08/20/19 06:35: POC Glucose 283 H 08/20/19 12:12: POC Glucose 268 H Current Medications Acetaminophen (Tylenol) 1,000 mg PO Q8H PRN [facility] Al Hydroxide/Mg Hydroxide (Mylanta Ii) 30 ml PO Q6H PRN PRN PRN Reason: Gastric Burning Albuterol Sulfate (Ventolin Aerosols) 2.5 mg INHALATION Q2H PRN PRN PRN Reason: Shortness of Breath/Wheezing Aspirin (Ecotrin) 81 mg PO DAILYCM [facility] Last Admin: 08/20/19 08:06 Dose: 81 mg Documented by: Atorvastatin Calcium (Lipitor) 5 mg PO QHS [facility] Last Admin: 08/19/19 21:44 Dose: 5 mg Documented by: Calcium Carbonate (Os-Lucho 500) 1,000 mg PO DAILY@0800 [facility] Last Admin: 08/20/19 08:05 Dose: 1,000 mg Documented by: Carvedilol (Coreg) 3.125 mg PO BID [facility] Last Admin: 08/20/19 10:39 Dose: 3.125 mg Documented by: Cholecalciferol (Vitamin D) 2,000 unit PO DAILY [facility] Last Admin: 08/20/19 10:39 Dose: 2,000 unit Documented by: Dextrose (D50w Syringe) 0 gm IV X1 PRN; Protocol PRN Reason: Hypoglycemia Gabapentin (Neurontin) 300 mg PO TID [facility] Last Admin: 08/20/19 05:11 Dose: 300 mg Documented by: Glucagon () 1 mg IM .X1 PRN PRN Reason: Hypoglycemia Piperacillin Sod/Tazobactam (Sod 3.375 gm/ Sodium Chloride) 50 mls @ 12.5 mls/hr IV Q8 [facility] Last Infusion: 08/20/19 10:37 Dose: Infused Documented by: Vancomycin IV Pharmacy to Dose (1 ea/ Sodium Chloride) 500 mls @ 250 mls/hr IV PRN PRN; Protocol PRN Reason: Rx to Dose Vancomycin HCl 2,000 mg/ (Sodium Chloride) 540 mls @ 250 mls/hr IV Q12H [facility] Last Infusion: 08/20/19 05:21 Dose: Infused Documented by: Sodium Chloride () 250 mls @ 15 mls/hr IV .[id number] PRN PRN Reason: Saline Flush Last Infusion: 08/20/19 10:37 Dose: 15 mls/hr Documented by: Ibuprofen (Motrin) 400 mg PO Q4H PRN PRN PRN Reason: Pain Score 6-10/10 Insulin Glargine (Lantus (Bkc)) 20 units SC QHS [facility] Last Admin: 08/19/19 21:45 Dose: 20 units Documented by: Insulin Human Lispro (Humalog Kwikpen (Bkc)) 0 unit SC ACHS [facility]; Protocol Last Admin: 08/20/19 12:15 Dose: 2 u Documented by: Ketorolac Tromethamine (Toradol) 30 mg IV Q8H PRN PRN PRN Reason: Pain Score 6-10/10 Last Admin: 08/19/19 21:43 Dose: 30 mg Documented by: Losartan Potassium (Cozaar) 50 mg PO DAILY [facility] Last Admin: 08/20/19 10:39 Dose: 50 mg Documented by: Melatonin (Melatonin) 6 mg PO QHS PRN PRN Reason: SLEEP Nitroglycerin (Nitrostat) 0.4 mg SUBLINGUAL Q5M PRN PRN Reason: CARDIAC/CHEST PAIN Nutritional Formula (Lactose Free) (Glucerna Shake) 120 ml PO 4X/DAY [facility] Last Admin: 08/20/19 10:39 Dose: 120 ml Documented by: Ondansetron HCl (Zofran) 4 mg IV Q8H PRN PRN PRN Reason: NAUSEA/VOMITING Pantoprazole Sodium (Protonix) 20 mg PO DAILY [facility] Last Admin: 08/20/19 10:39 Dose: 20 mg Documented by: Senna/Docusate Sodium (Senokot-S, Marla-Colace) 2 tablet PO BID PRN PRN PRN Reason: Constipation Sodium Chloride () 10 - 40 ml IV UD PRN PRN Reason: SALINE FLUSH Medical Necessity - Tobacco Use Smoking Status: Former smoker Tobacco Use: Non-smoker Route of nutrition/ use of supplements: [] Nutritional Intake: [] IV Site: [] Bernal Catheter: [] - Assessment/Plan Antibiotics: [] Assessment/Plan: [] Active and Suspected Problems Delayed wound healing (Acute) H/O alcohol abuse (Acute) H/O drug abuse (Acute) Osteomyelitis of right foot (Acute) Hammer toe of right foot (Acute) Diabetic foot infection (Acute) Cellulitis (Acute) Hyperlipidemia (Acute) R foot osteo - on vanc/zosyn, cxs showing MRSA, GNR, GNR. TMA done 08/[address] Medrano, will follow surg cx and path. MRSA pcr (+). If margins are clear, plan on short course of po abx at discharge. Will follow
[2019-08-20] MEDS: Ketorolac 30 MG/ML Syringe IV (13:53)
--- NOTE | 2019-08-20 14:20 | CASEMGMT ---
Social Work Note SW faxed updated clinicals to [facility]. Pt is still on TCU list. SW placed a call to Referral line and asked for update on when TCU bed will become available. SW attempted to meet with pt twice to update but both times pt had guest present in pt's room. SW will attempt to speak with pt regarding SNF referrals later today as time allows. Plan: SNF pending acceptance Aicha Abraham PUBLIC HEALTH DIRECTOR, TAX EXPERT
--- NOTE | 2019-08-20 14:50 | CASEMGMT ---
MICHELL spoke with patient regarding his 3rd choice for SNF. He reviewed the list and picked [facility]. MICHELL notified [facility] SW. Tessie LOZANO STEAM CRANE OPERATOR
--- NOTE | 2019-08-20 15:13 | CHAPLAIN ---
Type of Pastoral Visit _x__ Initial Visit ___ Follow-up Visit ___ On-call Visit ___ General Patient Visit ___ Spiritual Assessment ___ Family Conference ___ Bereavement ___ Rapid Response ___ Code Blue ___ Other (describe below) Pastoral Care Referral From _x__ Patient ___ Family ___ Nurse ___ Physician ___ Family Law Paralegal ___ [employer] ___ Other (describe below) Sacrament/Intervention _x__ Active listening ___ Anointing ___ Presybeterian ___ Bereavement ___ Communion _x__ Safia exploration ___ _x__ Life review _x__ Prayer ___ Reconciliation ___ Sacrament of Sick _x__ Supportive presence ___ Wedding ___ Other (describe below) Pastoral Comments
--- NOTE | 2019-08-20 15:15 | CASEMGMT ---
Addendum entered by Aicha Abraham 08/20/19 16:03: Correction SW did fax referral to [facility] today. Addendum entered by Aicha Abraham 08/20/19 15:55: MICHELL received message from Asiya at [facility] stating she is not able to accept pt. MICHELL will fax referral to [facility] tomorrow. Original Note: Social Work Note MICHELL received call from Erin in TCU stating she could maybe have a bed tomorrow or Sunday. Erin states that she will for sure have a bed on Sunday. MICHELL informed Erin that this worker is not aware yet when pt will be medically cleared for discharge but request bed on Sunday to be on hold for pt and asked to update this worker if a bed becomes available before Sunday. MICHELL is still waiting to hear from [facility] regarding referral but pt's third choice is [facility] if [facility] or [facility] is not able to accept pt. Plan: SNF pending acceptance. Aicha Abraham FALL INTERN, ACCOUNTING ADMINISTRATIVE ASSISTANT
[2019-08-20 16:50] LABS: Bedside Glucose 137 mg/dL (70-110)
[2019-08-20 16:53] VITALS: BP 106/61; PULSE 75; RESP 18; TEMP 36.6; O2SAT 97
[2019-08-20 17:01] LABS: Bedside Glucose 291 mg/dL (70-110)
[2019-08-20] MEDS: Ibuprofen 400 MG Tablet PO ×2 (17:16→22:52)
--- NOTE | 2019-08-20 17:59 | PN_ITS ---
Patient Problems: Active and Suspected Problems Type 2 diabetes mellitus with diabetic polyneuropathy (Acute) Delayed wound healing (Acute) H/O alcohol abuse (Acute) H/O drug abuse (Acute) Osteomyelitis of right foot (Acute) Hammer toe of right foot (Acute) Diabetic foot infection (Acute) Cellulitis (Acute) Hyperlipidemia (Acute) Subjective: This 64-year-old diabetic male was seen bedside postoperative day #1 right transmetatarsal amputation open gastrocnemius recession. He relates his pain is better controlled today and he defers any narcotic pain medication due to his history of drug abuse. He denies fever, chill, nausea, vomiting, shortness of breath, chest pain. He has been elevating his right limb and his dressing is intact. - Physical Exam Vitals/I&O's: Vital Signs Temp Pulse Resp BP Pulse Ox 97.8 F 75 18 106/61 97 08/20/19 16:53 08/20/19 16:53 08/20/19 16:53 08/20/19 16:53 08/20/19 16:53 Oxygen Delivery Method Room Air Weight: 104.05 kg Body Mass Index (BMI) 33.8 Finger Stick Blood Glucose 151 Intake and Output for Last 24 Hours 08/18/19 08/19/19 08/20/19 23:59 23:59 23:59 Intake Total 840.25 / 1640.25 4650.17 / 4650.17 2830.00 / 2830.00 Output Total 2175 / 2175 1999 / 1999 Balance 840.25 / 1140.25 2475.17 / 2475.17 830.00 / 830.00 General: Alert, Oriented x3, Cooperative Extremities: No cyanosis, Capillary Refill Less than 3 Seconds - To dorsal and p lantar aspects of the amputation stump site right foot, No Calf Tenderness - Negative Karen and Taylor sign, Edema - Mild surgical site, Peripheral Pulses Normal, - - Improved ankle dorsiflexion with knee flexed and extended right lower extremity compared to preoperative status Skin: Incision - the incision site is well aligned and coapted at the transmetatarsal amputation site of the right lower extremity in the gastrocnemius recession site with nylon suture intact. There is no gapping, necrosis, erythema, streaking, or infection It is noted that complex closure was performed to excise the plantar foot ulcer site in the central allgower stitch is intact Musculoskeletal: No Tenderness to Palpation of Joints or Extremities, Muscle Wasting Neurological: - - Lack of normal epicritic sensation light touch is consistent with neuropathy status Psych/Mental Status: Normal Affect, Appropriate, Anxious Microbiology Past 72 Hours 08/18/19 15:45 Wound - Right Foot Gram Stain - Final 08/18/19 15:45 Wound - Right Foot Wound Culture - Preliminary Meth. resistant Staph. aureus GNR lactose business objects Gram negative bishop Gram positive bishop 08/18/19 13:40 Blood Culture (Wb) - Anticubital Right Blood Culture - Preliminary No growth in 48 hours. 08/18/19 12:45 Blood Culture (Wb) - Anticubital Left Blood Culture - Preli minary No growth in 48 hours. 08/19/19 16:06 Bone - Right Foot Wound Culture - Preliminary No growth-Final to follow Laboratory Results 08/19/19 06:43: POC Glucose 137 H 08/19/19 21:42: POC Glucose 314 H 08/20/19 02:26: Vancomycin Trough 18.1 H 08/20/19 02:26: WBC 5.5, RBC 4.21 L, Hgb 11.9 L, Hct 36.7 L, MCV 87.2, MCH 28.3, MCHC 32.4, RDW Std Deviation 39.9, RDW Coeff of Hakeem 12.5, Plt Count 109 L, MPV 9.2, Immature Gran % (Auto) 0.400, Neut % (Auto) 85.4 H, Lymph % (Auto) 7.8 L, Bleckley % (Auto) 5.8, Eos % (Auto) 0.4, Baso % (Auto) 0.2, Absolute Neuts (auto) 4.7, Absolute Lymphs (auto) 0.43 L, Nucleated RBC % 0 08/20/19 02:26: Sodium 138, Potassium 4.4, Chloride 104, Carbon Dioxide 27.0, Anion Gap 7, BUN 14, Creatinine 0.86, Estim Creat Clear Calc 86.78, Est GFR (MDRD) Af Amer 115, Est GFR (MDRD) Non-Af 95, BUN/Creatinine Ratio 16.3, Glucose 299 H, Calcium 8.3 L 08/20/19 06:35: POC Glucose 283 H 08/20/19 12:12: POC Glucose 268 H 08/20/19 16:49: POC Glucose 291 H Current Medications Acetaminophen (Tylenol) 1,000 mg PO Q8 [facility] Last Admin: 08/20/19 14:06 Dose: 1,000 mg Documented by: Al Hydroxide/Mg Hydroxide (Mylanta Ii) 30 ml PO Q6H PRN PRN PRN Reason: Gastric Burning Albuterol Sulfate (Ventolin Aerosols) 2.5 mg INHALATION Q2H PRN PRN PRN Reason: Shortness of Breath/Wheezing Aspirin (Ecotrin) 81 mg PO DAILYCM [facility] Last Admin: 08/20/19 08:06 Dose: 81 mg Documented by: Atorvastatin Calcium (Lipitor) 5 mg PO QHS [facility] Last Admin: 08/19/19 21:44 Dose: 5 mg Documented by: Calcium Carbonate (Os-Lucho 500) 1,000 mg PO DAILY@0800 [facility] Last Admin: 08/20/19 08:05 Dose: 1,000 mg Documented by: Carvedilol (Coreg) 3.125 mg PO BID [facility] Last Admin: 08/20/19 10:39 Dose: 3.125 mg Documented by: Cholecalciferol (Vitamin D) 2,000 unit PO DAILY [facility] Last Admin: 08/20/19 10:39 Dose: 2,000 unit Documented by: Dextrose (D50w Syringe) 0 gm IV X1 PRN; Protocol PRN Reason: Hypoglycemia Gabapentin (Neurontin) 300 mg PO TID [facility] Last Admin: 08/20/19 14:05 Dose: 300 mg Documented by: Glucagon () 1 mg IM .X1 PRN PRN Reason: Hypoglycemia Piperacillin Sod/Tazobactam (Sod 3.375 gm/ Sodium Chloride) 50 mls @ 12.5 mls/hr IV Q8 [facility] Last Admin: 08/20/19 13:53 Dose: 12.5 mls/hr Documented by: Vancomycin IV Pharmacy to Dose (1 ea/ Sodium Chloride) 500 mls @ 250 mls/hr IV PRN PRN; Protocol PRN Reason: Rx to Dose Vancomycin HCl 2,000 mg/ (Sodium Chloride) 540 mls @ 250 mls/hr IV Q12H [facility] Last Admin: 08/20/19 15:50 Dose: 250 mls/hr Documented by: Sodium Chloride () 250 mls @ 15 mls/hr IV .[id number] PRN PRN Reason: Saline Flush Last Infusion: 08/20/19 13:53 Dose: 0 mls/hr Documented by: Ibuprofen (Motrin) 400 mg PO Q4H PRN PRN PRN Reason: Pain Score 6-10/10 Last Admin: 08/20/19 17:16 Dose: 400 mg Documented by: Insulin Glargine (Lantus (Bk)) 20 units SC QHS [facility] Last Admin: 08/19/19 21:45 Dose: 20 units Documented by: Insulin Human Lispro (Humalog Kwikpen ([facility])) 0 unit SC ACHS [facility]; Protocol Last Admin: 08/20/19 16:56 Dose: 4 u Documented by: Losartan Potassium (Cozaar) 50 mg PO DAILY [facility] Last Admin: 08/20/19 10:39 Dose: 50 mg Documented by: Melatonin (Melatonin) 6 mg PO QHS PRN PRN Reason: SLEEP Nitroglycerin (Nitrostat) 0.4 mg SUBLINGUAL Q5M PRN PRN Reason: CARDIAC/CHEST PAIN Nutritional Formula (Lactose Free) (Glucerna Shake) 120 ml PO 4X/DAY [facility] Last Admin: 08/20/19 17:02 Dose: 120 ml Documented by: Ondansetron HCl (Zofran) 4 mg IV Q8H PRN PRN PRN Reason: NAUSEA/VOMITING Pantoprazole Sodium (Protonix) 20 mg PO DAILY [facility] Last Admin: 08/20/19 10:39 Dose: 20 mg Documented by: Senna/Docusate Sodium (Senokot-S, Marla-Colace) 2 tablet PO BID PRN PRN PRN Reason: Constipation Sodium Chloride () 10 - 40 ml IV UD PRN PRN Reason: SALINE FLUSH Medical Necessity - Tobacco Use Smoking Status: Former smoker Tobacco Use: Non-smoker Assessment/Plan All Active Problems Type 2 diabetes mellitus with diabetic polyneuropathy (Acute) Delayed wound healing (Acute) H/O alcohol abuse (Acute) H/O drug abuse (Acute) Osteomyelitis of right foot (Acute) Hammer toe of right foot (Acute) Diabetic foot infection (Acute) Cellulitis (Acute) Hyperlipidemia (Acute) Preop cardiovascular exam (Acute) Troponin I above reference range (Acute) Anxiety (Acute) Stroke (Acute) Cellulitis and osteomyelitis third metatarsal head and proximal phalanx base right foot with chronic ulcer Diabetes w/ peripheral neuropathy Right foot deformity (absent 4th toe and 4th met head) History of alcohol and drug abuse Liver cirrhosis history of hepatitis C MRSA positive Reviewed diagnostic data and discussed the case with the patient including his recent surgical intervention. He remains afebrile and his vital signs are s table. He does not have any leukocytosis at this time. The postoperative dressing change was performed and this appears very stable and intact. A new dressing consisting of Betadine, gauze, Kerlix, abdominal pads, and Julián wrap was applied. His cultures from surgery are pending. His preoperative wound cultures are noted with multi-organism growth including MRSA. To continue on IV antibiotics including vancomycin and Zosyn as recommended by the infectious disease physician. His clearance fragments from surgery are pending and will guide her duration of postoperative antibiotics. To keep the postoperative dressing clean, dry, and intact. Plan to change his dressing in approximately 1 week. Strict nonweightbearing is recommended to optimize healing. I recommend fci facility placement and the patient is interested in the transitional care unit if this is available. This is recommended to help with compliance with nonweightbearing status. Continue with nutritional s upplementation proper glycemic control to optimize healing. To continue incentive spirometer use. Diabetes and medical management per medicine team appreciated. Podiatry will continue to follow while in house and also if he gets transition to the TCU. Please do not hesitate to call if any questions. Leanne Medrano DPM, [facility] [phone]
[2019-08-20 22:28] VITALS: BP 115/61; PULSE 74; RESP 18; TEMP 36.4; O2SAT 99
[2019-08-20] MEDS: Atorvastatin Calcium 10 MG Tablet 5 MG PO (22:31)
[2019-08-20 22:45] LABS: Bedside Glucose 235 mg/dL (70-110)
[2019-08-20] MEDS: MELATONIN 3 MG TABLET 6 MG PO (22:52)
[2019-08-21 02:37] VITALS: BP 112/63; PULSE 76; RESP 18; TEMP 36.3; O2SAT 96
[2019-08-21 06:29] LABS: Anion Gap 3 (5-15); BUN 14 mg/dL (7-18); BUN/Creat Ratio 16.5 RATIO (10-20); Calcium,Total 8.4 mg/dL (8.5-10.1); Chloride 113 mmol/L (98-107); Creatinine, Serum 0.85 mg/dL (0.70-1.30); EST Glomerular Filtration Rate 97 mL/min (>60); Est Glom Filt Rate - Afr Amer 117 mL/min (>60); Glucose 190 mg/dL (74-106); Potassium 4.6 mmol/L (3.5-5.1); Sodium Level 143 mmol/L (136-145)
[2019-08-21] MEDS: Acetaminophen 500 MG Tablet 1000 MG PO ×3 (06:34→22:02)
[2019-08-21] MEDS: Gabapentin 300 MG Capsule PO ×3 (06:34→22:04)
[2019-08-21] MEDS: Ibuprofen 400 MG Tablet PO (06:36)
[2019-08-21] MEDS: Insulin Lispro 100 UNIT/ML INSULN.PEN SC ×4 (06:37→22:05)
[2019-08-21 07:16] LABS: Bedside Glucose 162 mg/dL (70-110)
[2019-08-21 08:30] VITALS: BP 132/68; PULSE 68; RESP 16; TEMP 36.6; O2SAT 97
[2019-08-21] MEDS: Losartan Potassium 50 MG Tablet PO (09:27)
[2019-08-21] MEDS: Calcium (Elemental) 500 MG Tablet 1000 MG PO (09:27)
[2019-08-21] MEDS: Carvedilol 3.125 MG TABLET PO ×2 (09:28→22:01)
[2019-08-21] MEDS: Aspirin E.C. 81 MG Tablet PO (09:28)
[2019-08-21] MEDS: Glucerna Shake 120 ML LIQUID PO ×4 (09:28→22:09)
[2019-08-21] MEDS: Pantoprazole Sodium 20 MG Tablet PO (09:28)
--- NOTE | 2019-08-21 09:49 | CASEMGMT ---
Social Work Note MICHELL received call from Brandie at [facility] stating [facility] able to accept pt. MICHELL informed Brandie that pt may be ready for discharge today. Brandie states understanding. MICHELL spoke with ID who states pt should be able to discharge on PO anbx. MICHELL placed a call to Erin in TCU and left her a message asking if she has an update on bed availability. Physician states pt may be ready for discharge today. SW to continue to follow. 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
[2019-08-21 10:30] VITALS: PULSE 68
--- NOTE | 2019-08-21 10:36 | PN.ID_ITS ---
Patient Problems: Active and Suspected Problems Type 2 diabetes mellitus with diabetic polyneuropathy (Acute) Delayed wound healing (Acute) H/O alcohol abuse (Acute) H/O drug abuse (Acute) Osteomyelitis of right foot (Acute) Hammer toe of right foot (Acute) Diabetic foot infection (Acute) Cellulitis (Acute) Hyperlipidemia (Acute) Subjective: Feeling better, pain improved, no fever, no n/v/d. - Physical Exam Vitals/I&O's: Vital Signs Temp Pulse Resp BP Pulse Ox 97.9 F 68 16 132/68 H 97 08/21/19 08:30 08/21/19 08:30 08/21/19 08:30 08/21/19 08:30 08/21/19 08:30 Oxygen Delivery Method Room Air Weight: 104.05 kg Body Mass Index (BMI) 33.8 Finger Stick Blood Glucose 151 Intake and Output for Last 24 Hours 08/19/19 08/20/19 08/21/19 23:59 23:59 23:59 Intake Total 4650.17 / 4650.17 3457.75 / 3557.75 1201 / 1201 Output Total 2175 / 2175 2000 / 2700 1400 / 1400 Balance 2475.17 / 2475.17 1457.75 / 857.75 -199 / -199 General: Alert, Cooperative, No apparent distress Lungs: Clear to auscultation, Normal air movement Cardiovascular: Regular rate, Regular Rhythm Abdomen: Soft, Non Tender, Non-Distended Skin: Ulcer/ Wound - foot wrappted Microbiology Past 72 Hours 08/18/19 15:45 Wound - Right Foot Gram Stain - Final 08/18/19 15:45 Wound - Right Foot Wound Culture - Final Meth. resistant Staph. aureus Pseudomonas aeroginosa Citrobacter freundii Corynebacterium striatum 08/18/19 13:40 Blood Culture (Wb) - Anticubital Right Blood Culture - Preliminary No growth in 48 hours. 08/18/19 12:45 Blood Culture (Wb) - Anticubital Left Blood Culture - Preliminary No growth in 48 hours. 08/19/19 16:06 Bone - Right Foot Wound Culture - Preliminary No growth-Final to follow Laboratory Results 08/19/19 06:43: POC Glucose 137 H 08/20/19 12:12: POC Glucose 268 H 08/20/19 16:49: POC Glucose 291 H 08/20/19 22:23: POC Glucose 235 H 08/21/19 05:26: Sodium 143, Potassium 4.6, Chloride 113 H, Carbon Dioxide 27.0, Anion Gap 3 L, BUN 14, Creatinine 0.85, Estim Creat Clear Calc 87.80, Est GFR (MDRD) Af Amer 117, Est GFR (MDRD) Non-Af 97, BUN/Creatinine Ratio 16.5, Glucose 190 H, Calcium 8.4 L 08/21/19 06:30: POC Glucose 162 H Current Medications Acetaminophen (Tylenol) 1,000 mg PO Q8 [facility] Last Admin: 08/21/19 06:34 Dose: 1,000 mg Documented by: Al Hydroxide/Mg Hydroxide (Mylanta Ii) 30 ml PO Q6H PRN PRN PRN Reason: Gastric Burning Albuterol Sulfate (Ventolin Aerosols) 2.5 mg INHALATION Q2H PRN PRN PRN Reason: Shortness of Breath/Wheezing Aspirin (Ecotrin) 81 mg PO DAILYCM [facility] Last Admin: 08/21/19 09:28 Dose: 81 mg Documented by: Atorvastatin Calcium (Lipitor) 5 mg PO QHS [facility] Last Admin: 08/20/19 22:31 Dose: 5 mg Documented by: Calcium Carbonate (Os-Lucho 500) 1,000 mg PO DAILY@0800 [facility] Last Admin: 08/21/19 09:27 Dose: 1,000 mg Documented by: Carvedilol (Coreg) 3.125 mg PO BID [facility] Last Admin: 08/21/19 09:28 Dose: 3.125 mg Documented by: Cholecalciferol (Vitamin D) 2,000 unit PO DAILY [facility] Last Admin: 08/21/19 09:27 Dose: 2,000 unit Documented by: Dextrose (D50w Syringe) 0 gm IV X1 PRN; Protocol PRN Reason: Hypoglycemia Gabapentin (Neurontin) 300 mg PO TID [facility] Last Admin: 08/21/19 06:34 Dose: 300 mg Documented by: Glucagon () 1 mg IM .X1 PRN PRN Reason: Hypoglycemia Piperacillin Sod/Tazobactam (Sod 3.375 gm/ Sodium Chloride) 50 mls @ 12.5 mls/hr IV Q8 [facility] Last Infusion: 08/21/19 10:34 Dose: Infused Documented by: Vancomycin IV Pharmacy to Dose (1 ea/ Sodium Chloride) 500 mls @ 250 mls/hr IV PRN PRN; Protocol PRN Reason: Rx to Dose Vancomycin HCl 2,000 mg/ (Sodium Chloride) 540 mls @ 250 mls/hr IV Q12H [facility] Last Infusion: 08/21/19 04:44 Dose: Infused Documented by: Sodium Chloride () 250 mls @ 15 mls/hr IV .[id number] PRN PRN Reason: Saline Flush Last Infusion: 08/21/19 10:34 Dose: 15 mls/hr Documented by: Ibuprofen (Motrin) 400 mg PO Q4H PRN PRN PRN Reason: Pain Score 6-10/10 Last Admin: 08/21/19 06:36 Dose: 400 mg Documented by: Insulin Glargine (Lantus ([facility])) 20 units SC QHS [facility] Last Admin: 08/20/19 22:35 Dose: 20 units Documented by: Insulin Human Lispro (Humalog Kwikpen ([facility])) 0 unit SC ACHS [facility]; Protocol Last Admin: 08/21/19 06:37 Dose: 1 u Documented by: Losartan Potassium (Cozaar) 50 mg PO DAILY [facility] Last Admin: 08/21/19 09:27 Dose: 50 mg Documented by: Melatonin (Melatonin) 6 mg PO QHS PRN PRN Reason: SLEEP Last Admin: 08/20/19 22:52 Dose: 6 mg Documented by: Nitroglycerin (Nitrostat) 0.4 mg SUBLINGUAL Q5M PRN PRN Reason: CARDIAC/CHEST PAIN Nutritional Formula (Lactose Free) (Glucerna Shake) 120 ml PO 4X/DAY [facility] Last Admin: 08/21/19 09:28 Dose: 120 ml Documented by: Ondansetron HCl (Zofran) 4 mg IV Q8H PRN PRN PRN Reason: NAUSEA/VOMITING Pantoprazole Sodium (Protonix) 20 mg PO DAILY [facility] Last Admin: 08/21/19 09:28 Dose: 20 mg Documented by: Senna/Docusate Sodium (Senokot-S, Marla-Colace) 2 tablet PO BID PRN PRN PRN Reason: Constipation Sodium Chloride () 10 - 40 ml IV UD PRN PRN Reason: SALINE FLUSH Medical Necessity - Tobacco Use Smoking Status: Former smoker Tobacco Use: Non-smoker Route of nutrition/ use of supplements: [] Nutritional Intake: [] IV Site: [] Bernal Catheter: [] - Assessment/Plan Antibiotics: [] Assessment/Plan: [] Active and Suspected Problems Delayed wound healing (Acute) H/O alcohol abuse (Acute) H/O drug abuse (Acute) Osteomyelitis of right foot (Acute) Hammer toe of right foot (Acute) Diabetic foot infection (Acute) Cellulitis (Acute) Hyperlipidemia (Acute) R foot osteo - on vanc/zosyn, cxs showing MRSA, PsA, citrobacter, corynebacteria. TMA done 08/[address] Medrano, will follow surg cx and path. MRSA pcr (+). At this point, plan on d/c to TCU on one week of po levaquin and flagyl. Will follow
--- NOTE | 2019-08-21 12:11 | NURSING ---
Staff member from [place] in to see pt at this time- SW and CM aware.
--- NOTE | 2019-08-21 12:24 | PCM.PN.HOSP ---
Patient Problems: Active and Suspected Problems Type 2 diabetes mellitus with diabetic polyneuropathy (Acute) Diabetic foot infection (Acute) Cellulitis (Acute) Hyperlipidemia (Acute) Subjective: Follow-up for right foot osteomyelitis: Patient was seen and examined. No acute events overnight. No fever, chills, nausea or vomiting. Objective: Physical exam: General: Alert, Oriented x3, Cooperative, No apparent distress HEENT: Atraumatic, PERRLA, EOMI, Normocephalic Oral: Moist Mucosa Neck: Supple Lungs: Clear to auscultation, Normal air movement Cardiovascular: Regular rate, Regular Rhythm, Normal S1, Normal S2, No murmurs Abdomen: Bowel Sounds Present, Soft, Non Tender, Non-Distended, No Hepato-splenomegaly Extremities: Dressing and MITCHELL-wraps to right foot, dry intact Skin: - - see fot exam Musculoskeletal: Tenderness - to the foot Lymphatic: No Cervical, Supraclavicular, or Inguinal Adenopathy Neurological: Cranial nerves II-XII grossly intact, Neuro grossly intact Psych/Mental Status: Normal Affect, Appropriate Vitals/I&O's: Vital Signs Temp Pulse Resp BP Pulse Ox 97.9 F 68 16 132/68 H 97 08/21/19 08:30 08/21/19 10:30 08/21/19 08:30 08/21/19 08:30 08/21/19 08:30 Oxygen Delivery Method Room Air Weight: 104.05 kg Body Mass Index (BMI) 33.8 Finger Stick Blood Glucose 151 Intake and Output for Last 24 Hours 08/19/19 08/20/19 08/21/19 23:59 23:59 23:59 Intake Total 4650.17 / 4650.17 3457.75 / 3557.75 1601 / 1601 Output Total 2175 / 2175 1999 / 0 1999 / 1999 Balance 2475.17 / 2475.17 1457.75 / 857.75 -399 / -399 Microbiology Past 72 Hours 08/19/19 16:06 Bone - Right Foot Gram Stain - Final 08/19/19 16:06 Bone - Right Foot Wound Culture - Preliminary No growth-Final to follow 08/18/19 15:45 Wound - Right Foot Gram Stain - Final 08/18/19 15:45 Wound - Right Foot Wound Culture - Final Meth. resistant Staph. aureus Pseudomonas aeroginosa Citrobacter freundii Corynebacterium striatum 08/18/19 13:40 Blood Culture (Wb) - Anticubital Right Blood Culture - Preliminary No growth in 48 hours. 08/18/19 12:45 Blood Culture (Wb) - Anticubital Left Blood Culture - Preliminary No growth in 48 hours. Laboratory Results 08/19/19 06:43: POC Glucose 137 H 08/20/19 12:12: POC Glucose 268 H 08/20/19 16:49: POC Glucose 291 H 08/20/19 22:23: POC Glucose 235 H 08/21/19 05:26: Sodium 143, Potassium 4.6, Chloride 113 H, Carbon Dioxide 27.0, Anion Gap 3 L, BUN 14, Creatinine 0.85, Estim Creat Clear Calc 87.80, Est GFR (MDRD) Af Amer 117, Est GFR (MDRD) Non-Af 97, BUN/Creatinine Ratio 16.5, Glucose 190 H, Calcium 8.4 L 08/21/19 06:30: POC Glucose 162 H Current Medications Acetaminophen (Tylenol) 1,000 mg PO Q8 [facility] Last Admin: 08/21/19 06:34 Dose: 1,000 mg Documented by: Al Hydroxide/Mg Hydroxide (Mylanta Ii) 30 ml PO Q6H PRN PRN PRN Reason: Gastric Burning Albuterol Sulfate (Ventolin Aerosols) 2.5 mg INHALATION Q2H PRN PRN PRN Reason: Shortness of Breath/Wheezing Aspirin (Ecotrin) 81 mg PO DAILYCM [facility] Last Admin: 08/21/19 09:28 Dose: 81 mg Documented by: Atorvastatin Calcium (Lipitor) 5 mg PO QHS [facility] Last Admin: 08/20/19 22:31 Dose: 5 mg Documented by: Calcium Carbonate (Os-Lucho 500) 1,000 mg PO DAILY@0800 [facility] Last Admin: 08/21/19 09:27 Dose: 1,000 mg Documented by: Carvedilol (Coreg) 3.125 mg PO BID [facility] Last Admin: 08/21/19 09:28 Dose: 3.125 mg Documented by: Cholecalciferol (Vitamin D) 2,000 unit PO DAILY [facility] Last Admin: 08/21/19 09:27 Dose: 2,000 unit Documented by: Dextrose (D50w Syringe) 0 gm IV X1 PRN; Protocol PRN Reason: Hypoglycemia Gabapentin (Neurontin) 300 mg PO TID [facility] Last Admin: 08/21/19 06:34 Dose: 300 mg Documented by: Glucagon () 1 mg IM .X1 PRN PRN Reason: Hypoglycemia Piperacillin Sod/Tazobactam (Sod 3.375 gm/ Sodium Chloride) 50 mls @ 12.5 mls/hr IV Q8 [facility] Last Infusion: 08/21/19 10:34 Dose: Infused Documented by: Vancomycin IV Pharmacy to Dose (1 ea/ Sodium Chloride) 500 mls @ 250 mls/hr IV PRN PRN; Protocol PRN Reason: Rx to Dose Vancomycin HCl 2,000 mg/ (Sodium Chloride) 540 mls @ 250 mls/hr IV Q12H [facility] Last Infusion: 08/21/19 04:44 Dose: Infused Documented by: Sodium Chloride () 250 mls @ 15 mls/hr IV .[id number] PRN PRN Reason: Saline Flush Last Infusion: 08/21/19 10:34 Dose: 15 mls/hr Documented by: Ibuprofen (Motrin) 400 mg PO Q4H PRN PRN PRN Reason: Pain Score 6-10/10 Last Admin: 08/21/19 06:36 Dose: 400 mg Documented by: Insulin Glargine (Lantus ([facility])) 24 units SC QHS [facility] Insulin Human Lispro (Humalog Kwikpen ([facility])) 0 unit SC ACHS [facility]; Protocol Last Admin: 08/21/19 06:37 Dose: 1 u Documented by: Losartan Potassium (Cozaar) 50 mg PO DAILY [facility] Last Admin: 08/21/19 09:27 Dose: 50 mg Documented by: Melatonin (Melatonin) 6 mg PO QHS PRN PRN Reason: SLEEP Last Admin: 08/20/19 22:52 Dose: 6 mg Documented by: Nitroglycerin (Nitrostat) 0.4 mg SUBLINGUAL Q5M PRN PRN Reason: CARDIAC/CHEST PAIN Nutritional Formula (Lactose Free) (Glucerna Shake) 120 ml PO 4X/DAY [facility] Last Admin: 08/21/19 09:28 Dose: 120 ml Documented by: Ondansetron HCl (Zofran) 4 mg IV Q8H PRN PRN PRN Reason: NAUSEA/VOMITING Pantoprazole Sodium (Protonix) 20 mg PO DAILY [facility] Last Admin: 08/21/19 09:28 Dose: 20 mg Documented by: Senna/Docusate Sodium (Senokot-S, Marla-Colace) 2 tablet PO BID PRN PRN PRN Reason: Constipation Sodium Chloride () 10 - 40 ml IV UD PRN PRN Reason: SALINE FLUSH STROKE Vital Signs/Narrative: Vital Signs Temp Pulse Resp BP Pulse Ox 08/21/19 10:30 68 08/21/19 08:30 97.9 F 68 16 132/68 H 97 Medical Necessity - Tobacco Use Smoking Status: Former smoker Tobacco Use: Non-smoker Assessment/Plan All Active Problems Type 2 diabetes mellitus with diabetic polyneuropathy (Acute) Delayed wound healing (Acute) H/O alcohol abuse (Acute) H/O drug abuse (Acute) Osteomyelitis of right foot (Acute) Hammer toe of right foot (Acute) Diabetic foot infection (Acute) Cellulitis (Acute) Hyperlipidemia (Acute) Preop cardiovascular exam (Acute) Troponin I above reference range (Acute) Anxiety (Acute) Stroke (Acute) 64 year old M with past medical history of hypertension, type II DM, [facility] comes in with complaints of swelling of the right foot as well as erythema and worsening right foot infection. 1. POD #2, s/p TMA for osteomyelitis in the head of the third metatarsal bone in the base of the third proximal phalanx. Associated cellulitis of the right foot/MRSA diabetic foot infection Blood cultures are negative. MRSA PCR positive. Intraoperative bone cultures are pending On vancomycin and Zosyn. ID and podiatry following. Plan for po levaquin and flagyl for 1 week on discharge 2. Type II DM, BS are fairly controlled, will continue on medium scale insulin sliding scale with blood glucose checks 3. Hypertension, continue on home medications, continue to monitor vitals 4. Hyperlipidemia, on statin 5. Chronic hep C, status post treatment History of cirrhosis of the liver, elevation of the total bilirubin and direct bilirubin [facility] 6. Thrombocytopenia, mild, chronic likely secondary to cirrhosis Will continue to monitor whilst on Heparin for DVT PPx 7. DVT prophylaxis with Heparin SC Code Visit Inpatient E&M: 40963 Subs Hosp L2
[2019-08-21 12:51] LABS: Bedside Glucose 203 mg/dL (70-110)
[2019-08-21 14:12] VITALS: BP 128/73; PULSE 78; RESP 18; TEMP 37.1; O2SAT 99
--- NOTE | 2019-08-21 14:30 | CASEMGMT ---
Social Work Note MICHELL received message from Erin in TCU stating she is still not sure if she will have a bed today or tomorrow for pt but will for sure have a bed Sunday for pt. MICHELL in to update pt. MICHELL updated pt that U is still checking on bed availability but informed pt that [facility] is not able to accept pt but [facility] is able to accept. MICHELL informed pt that if physician is ready to discharge pt and there is no bed on TCU then he will be discharged to [facility]. Pt states understanding, denied additional needs or concerns at this time. SW reviewed notes and pt will be discharged on PO anbx. MICHELL placed a call to Brandie at [facility] and updated her that pt will be discharged on PO antibiotics but that discharged is still not confirmed. Brandie states understanding. Plan: TCU vs. [facility]. Aicha Abraham ENGLISH PROFESSOR, [employer]
--- NOTE | 2019-08-21 17:22 | DCINST_ITS ---
Discharge Diet: Carb Control Diet Discharge Activity: Use Walker Weight Bearing Status: No weight bearing - right lower extremity Keep extremity elevated above heart level: Right Leg Call your doctor if your incision/area has: Continuous Slow Oozing, Sudden Incr eased Bleeding, Increased Pain/ Swelling, Increased Redness, Foul Smelling Discharge, Swelling at the incision site Call your doctor if you observe: Fever of 101 or Higher, Calf discomfort, Uncontrolled pain Cleanse incision/area with: Keep Dressing Clean & Dry Allergies/Adverse Reactions: Allergies morphine Adverse Reaction (Verified 08/18/19 11:57) Gets mean Medications to take at Discharge Aspirin [Aspir-Low] 81 mg PO DAILY 04/30/17 Insulin Glargine [Lantus SoloStar Pen] 20 units SC QHS 04/30/17 Melatonin 6 mg PO QHS PRN 04/30/17 Atorvastatin Calcium 5 mg PO QHS 08/18/19 Carvedilol 3.125 mg PO BID 08/18/19 Cholecalciferol (Vitamin D3) [Vitamin D3] 2,000 unit PO DAILY 08/18/19 DiphenhydrAMINE [Benadryl] 25 mg PO QHS PRN 08/18/19 Gabapentin [Neurontin] 300 mg PO TID 08/18/19 Metformin HCl 1,000 mg PO BID 08/18/19 Metronidazole [Flagyl] 500 mg PO TID #21 tab 08/21/19 levoFLOXacin tablet [Levaquin tablet] 750 mg PO DAILY #7 tab 08/21/19 The following prescriptions were given: Metronidazole [Flagyl] 500 mg PO TID #21 tab levoFLOXacin tablet [Levaquin tablet] 750 mg PO DAILY #7 tab [facility] [[facility] - Test Results: Test results from this visit will be discussed in further detail at your follow- up appointment, if applicable. Please Follow Up With: Leanne Medrano DPM When: [facility] next week; call [phone] Proposed Discharge Date: 08/21/19
[2019-08-21 17:35] LABS: Bedside Glucose 201 mg/dL (70-110)
[2019-08-21] MEDS: Atorvastatin Calcium 10 MG Tablet 5 MG PO (22:01)
[2019-08-21 22:14] VITALS: BP 125/79; PULSE 80; RESP 18; TEMP 36.9; O2SAT 98
[2019-08-21 22:20] LABS: Bedside Glucose 226 mg/dL (70-110)
[2019-08-22 02:52] VITALS: BP 150/87; PULSE 77; RESP 18; TEMP 36.6; O2SAT 97
--- NOTE | 2019-08-22 04:50 | NURSING ---
this nurse spoke with [facility] pharmacist. Vanco and zosyn are both scheduled for 0600 and are not compatible. Pharmacist instructed to hang vanco as schedule and follow with zosynoemí.
[2019-08-22] MEDS: Acetaminophen 500 MG Tablet 1000 MG PO ×2 (05:25→15:12)
[2019-08-22] MEDS: Gabapentin 300 MG Capsule PO ×2 (05:26→15:11)
[2019-08-22] MEDS: Insulin Lispro 100 UNIT/ML INSULN.PEN SC ×3 (06:41→17:00)
[2019-08-22 06:51] LABS: Bedside Glucose 166 mg/dL (70-110)
[2019-08-22] MEDS: Ibuprofen 400 MG Tablet PO (08:41)
[2019-08-22] MEDS: Carvedilol 3.125 MG TABLET PO (08:42)
[2019-08-22] MEDS: Losartan Potassium 50 MG Tablet PO (08:42)
[2019-08-22] MEDS: Pantoprazole Sodium 20 MG Tablet PO (08:42)
[2019-08-22] MEDS: Aspirin E.C. 81 MG Tablet PO (08:42)
[2019-08-22] MEDS: Calcium (Elemental) 500 MG Tablet 1000 MG PO (08:46)
[2019-08-22] MEDS: Glucerna Shake 120 ML LIQUID PO ×2 (08:47→15:11)
[2019-08-22 08:50] VITALS: BP 162/92; PULSE 75; RESP 18; TEMP 36.7; O2SAT 99
[2019-08-22 09:29] VITALS: BP 142/76; PULSE 82; RESP 18; TEMP 37.1; O2SAT 97
[2019-08-22 12:01] LABS: Bedside Glucose 227 mg/dL (70-110)
--- NOTE | 2019-08-22 12:01 | NURSING ---
This nurse Cortexted Dr. Levine and made him aware of temp of 101.3
--- NOTE | 2019-08-22 13:34 | PCM.PN.ID ---
Patient Problems: Active and Suspected Problems Type 2 diabetes mellitus with diabetic polyneuropathy (Acute) Diabetic foot infection (Acute) Cellulitis (Acute) Hyperlipidemia (Acute) Subjective: Some loose stool after several days of constipation, no fever - Physical Exam Vitals/I&O's: Vital Signs Temp Pulse Resp BP Pulse Ox 98.8 F 82 18 142/76 H 97 08/22/19 09:29 08/22/19 09:29 08/22/19 09:29 08/22/19 09:29 08/22/19 09:29 Oxygen Delivery Method Room Air Weight: 104.05 kg Body Mass Index (BMI) 33.8 Finger Stick Blood Glucose 151 Intake and Output for Last 24 Hours 08/20/19 08/21/19 08/22/19 23:59 23:59 23:59 Intake Total 3457.75 / 3557.75 2715.75 / 3515.75 2484 / 2484 Output Total 1999 / 2700 4400 / 4950 2250 / 2250 Balance 1457.75 / 857.75 -1684.25 / -1434.25 234 / 234 General: Alert, Cooperative, No apparent distress Lungs: Clear to auscultation, Normal air movement Cardiovascular: Regular rate, Regular Rhythm Abdomen: Soft, Non Tender, Non-Distended Skin: Ulcer/ Wound - foot wrapped Microbiology Past 72 Hours 08/19/19 16:06 Bone - Right Foot Gram Stain - Final 08/19/19 16:06 Bone - Right Foot Wound Culture - Final No growth aerobically. 08/18/19 15:45 Wound - Right Foot Gram Stain - Final 08/18/19 15:45 Wound - Right Foot Wound Culture - Final Meth. resistant Staph. aureus Pseudomonas aeroginosa Citrobacter freundii Corynebacterium striatum 08/18/19 13:40 Blood Culture (Wb) - Anticubital Right Blood Culture - Preliminary No growth in 48 hours. 08/18/19 12:45 Blood Culture (Wb) - Anticubital Left Blood Culture - Preliminary No growth in 48 hours. Laboratory Results 08/21/19 17:15: POC Glucose 201 H 08/21/19 22:00: POC Glucose 226 H 08/22/19 06:39: POC Glucose 166 H 08/22/19 11:26: POC Glucose 227 H Current Medications Acetaminophen (Tylenol) 1,000 mg PO Q8 [facility] Last Admin: 08/22/19 05:25 Dose: 1,000 mg Documented by: Al Hydroxide/Mg Hydroxide (Mylanta Ii) 30 ml PO Q6H PRN PRN PRN Reason: Gastric Burning Albuterol Sulfate (Ventolin Aerosols) 2.5 mg INHALATION Q2H PRN PRN PRN Reason: Shortness of Breath/Wheezing Aspirin (Ecotrin) 81 mg PO DAILYCM [facility] Last Admin: 08/22/19 08:42 Dose: 81 mg Documented by: Atorvastatin Calcium (Lipitor) 5 mg PO QHS [facility] Last Admin: 08/21/19 22:01 Dose: 5 mg Documented by: Calcium Carbonate (Os-Lucho 500) 1,000 mg PO DAILY@0800 [facility] Last Admin: 08/22/19 08:46 Dose: 1,000 mg Documented by: Carvedilol (Coreg) 3.125 mg PO BID [facility] Last Admin: 08/22/19 08:42 Dose: 3.125 mg Documented by: Cholecalciferol (Vitamin D) 2,000 unit PO DAILY [facility] Last Admin: 08/22/19 08:41 Dose: 2,000 unit Documented by: Dextrose (D50w Syringe) 0 gm IV X1 PRN; Protocol PRN Reason: Hypoglycemia Gabapentin (Neurontin) 300 mg PO TID [facility] Last Admin: 08/22/19 05:26 Dose: 300 mg Documented by: Glucagon () 1 mg IM .X1 PRN PRN Reason: Hypoglycemia Sodium Chloride () 250 mls @ 15 mls/hr IV .[id number] PRN PRN Reason: Saline Flush Last Infusion: 08/22/19 12:01 Dose: 0 mls/hr Documented by: Ibuprofen (Motrin) 400 mg PO Q4H PRN PRN PRN Reason: Pain Score 6-10/10 Last Admin: 08/22/19 08:41 Dose: 400 mg Documented by: Insulin Glargine (Lantus ([facility])) 24 units SC QHS [facility] Last Admin: 08/21/19 22:04 Dose: 26 u Documented by: Insulin Human Lispro (Humalog Kwikpen ([facility])) 0 unit SC ACHS [facility]; Protocol Last Admin: 08/22/19 11:28 Dose: 2 u Documented by: Losartan Potassium (Cozaar) 50 mg PO DAILY [facility] Last Admin: 08/22/19 08:42 Dose: 50 mg Documented by: Melatonin (Melatonin) 6 mg PO QHS PRN PRN Reason: SLEEP Last Admin: 08/20/19 22:52 Dose: 6 mg Documented by: Nitroglycerin (Nitrostat) 0.4 mg SUBLINGUAL Q5M PRN PRN Reason: CARDIAC/CHEST PAIN Nutritional Formula (Lactose Free) (Glucerna Shake) 120 ml PO 4X/DAY [facility] Last Admin: 08/22/19 08:47 Dose: 120 ml Documented by: Ondansetron HCl (Zofran) 4 mg IV Q8H PRN PRN PRN Reason: NAUSEA/VOMITING Pantoprazole Sodium (Protonix) 20 mg PO DAILY [facility] Last Admin: 08/22/19 08:42 Dose: 20 mg Documented by: Senna/Docusate Sodium (Senokot-S, Marla-Colace) 2 tablet PO BID PRN PRN PRN Reason: Constipation Sodium Chloride () 10 - 40 ml IV UD PRN PRN Reason: SALINE FLUSH Medical Necessity - Tobacco Use Smoking Status: Former smoker Tobacco Use: Non-smoker Route of nutrition/ use of supplements: [] Nutritional Intake: [] IV Site: [] Bernal Catheter: []
--- NOTE | 2019-08-22 14:13 | CASEMGMT ---
MICHELL completed hospital exemption in [facility]. CRYSTAL Felix
[2019-08-22] MEDS: metroNIDAZOLE 500 MG Tablet PO (15:11)
[2019-08-22] MEDS: levoFLOXacin 750 MG Tablet PO (15:12)
--- NOTE | 2019-08-22 15:12 | CASEMGMT ---
Social Work Note MICHELL received call from Erin in TCU stating TCU will have a bed for pt today. Physician updated. MICHELL placed a call to Isaias at [facility] and updated her that pt will be discharged to TCU now instead of [facility]. SW in to speak with pt to update. Pt's present in room. SW updated pt and pt's that TCU will have a bed for pt. Pt and pt's state understanding. Plan: TCU today. 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
--- NOTE | 2019-08-22 15:27 | PCM.TXEXTCAR ---
- Diet 08/18/19 15:31 Diet: Calorie Controlled Food consistency:: Regular Liquid Consistency:: Regular/Thin How many daily calories?: 1800 calorie Diet: Cardiac/Low Cholesterol Food consistency:: Regular Liquid Consistency:: Regular/Thin - Routine Orders/Code Status Routine Lab Work: CBC - within 3 days, BMP - within 3 days Code Status: Full Code - Wound(s) left foot Wound Type: Surgical Incision right plantar foot Wound Type: Neuropathic/Diabetic Foot Ulcer Dressing Change: Promogran RIGHT FOOT Wound Type: Neuropathic/Diabetic Foot Ulcer - Therapies Weight Bearing: Non weight bearing Physical Therapy: Eval and Treat Occupational Therapy: Eval and Treat - Problem/Diagnosis (1) Diabetic foot infection Status: Acute Current Visit: Yes (2) Cellulitis Status: Acute Current Visit: Yes (3) Anxiety Status: Acute Current Visit: No (4) Diabetes Status: Chronic Current Visit: No (5) Hypertension Status: Chronic Current Visit: Yes (6) Hyperlipidemia Status: Acute Current Visit: Yes - Allergies/Procedures Done in Hospital Allergies/Adverse Reactions: Allergies morphine Adverse Reaction (Verified 08/18/19 11:57) Gets mean Procedures: - - s/p right TMA 08/19/19 - Type of Care/Length of Stay Estimated LOS: Convalescent Care Less Than 30 days Type of Care Needed: Skilled Rehab Potential: Good Prognosis: Good - Additional Orders/Day of Discharge Additional Orders: No narcotic meds. Patient prefers not to have for history of substance abuse. Wound care per Dr. Medrano. She plans on changing dressing in 1 week Day of Discharge: 08/22/19 - Dietary and Speech Recommendations Dietitian Recommendations/Changes: Rec Aries 1 pckt BID for post-op wound healing-order from pharmacy. - Follow Up Care Primary Care Physician: [facility],[place] [Primary Care Provider] - Please follow up with your Primary Care Physician in: within 1-2 weeks of discharge Please Follow Up With: Leanne Medrano DPM When: [facility] next [facility]; call [phone]
--- NOTE | 2019-08-22 16:55 | PCM.DC.SUM ---
Discharge Date and Diagnosis - Problem List Patient Problems: Active and Suspected Problems Type 2 diabetes mellitus with diabetic polyneuropathy (Acute) Diabetic foot infection (Acute) Cellulitis (Acute) Hyperlipidemia (Acute) Date of Admission: 08/18/19 Date of Discharge: 08/22/19 - Primary Discharge Diagnosis Active and Suspected Problems Osteomyelitis of head of the third metatarsal bone to the base of the third proximal phalanx. 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 Electronically Signed: Brandon Qiu, at 13:33 EST , Service support , Lower Extremity MRI 08/18/19 15:34 IMPRESSION: 1. Mild osteomyelitis in the head of the third metatarsal bone and in the base of the third proximal phalanx. 2. Open soft tissue ulcer with a sinus tract leading up to the third metatarsal head. 3. Healed fracture deformity of the head neck junction second proximal phalanx and diffuse reactive edema. 4. Cellulitis on the plantar aspect of the foot. N.B. : The above information has been verbally conveyed by Edwin Toro MD to [facility]/RN, RN, on 08/18/2019 20:45:26 (ET). Electronically Signed: Edwin Toro MD at 20:46 EST , Service support , ADDENDUM: 08/18/192052 IMPRESSION: 1. Mild osteomyelitis in the head of the third metatarsal bone and in the base of the third proximal phalanx. 2. Open soft tissue ulcer with a sinus tract leading up to the third metatarsal head. 3. Healed fracture deformity of the head neck junction second proximal phalanx and diffuse reactive edema. 4. Cellulitis on the plantar aspect of the foot. N.B. : The above information has been verbally conveyed by Edwin Toro MD to Jackson Sahu Nurse/RN, RN, on 08/18/2019 20:45:26 (ET). 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 Yepez Podiatry - Dr. Luis/Fascidavy Operations: - - s/p right TMA (08/19/19) Summary of Care Provided: 64 year old M with past medical history of hypertension, type II DM, [facility] with complaints of swelling of the right foot as well as erythema and worsening right foot infection. Patient had an MRI of the right foot which showed osteomyelitis in the head of the third metatarsal bone to the base of the third proximal phalanx. There was associated cellulitis. His MRSA PCR was positive. He was started on vancomycin and Zosyn. ID and podiatry were consulted. Patient underwent right foot TMA after vascular studies were done. His wound cultures grew MRSA, Pseudomonas, Citrobacter, Corynebacterium. Sensitive to vancomycin and Zosyn. Final intraoperative wound cultures were pending at the time of discharge. Patient was discharged on 1 week of Levaquin and Flagyl. He will follow-up with podiatry. Patient Problems: Active and Suspected Problems Type 2 diabetes mellitus with diabetic polyneuropathy (Acute) Diabetic foot infection (Acute) Cellulitis (Acute) Hyperlipidemia (Acute) Subjective: On the day of discharge, patient was seen and examined. He denied any new complaints. His pain is controlled. No fevers or chills. Objective: Physical exam: General: Alert, Oriented x3, Cooperative, No apparent distress HEENT: Atraumatic, PERRLA, EOMI, Normocephalic Oral: Moist Mucosa Neck: Supple Lungs: Clear to auscultation, Normal air movement Cardiovascular: Regular rate, Regular Rhythm, Normal S1, Normal S2, No murmurs Abdomen: Bowel Sounds Present, Soft, Non Tender, Non-Distended, No Hepato-splenomegaly Extremities: Dressing and MITCHELL-wraps to right foot, dry intact Skin: - - see fot exam Musculoskeletal: Tenderness - to the foot Lymphatic: No Cervical, Supraclavicular, or Inguinal Adenopathy Neurological: Cranial nerves II-XII grossly intact, Neuro grossly intact Psych/Mental Status: Normal Affect, Appropriate - Physical Exam Vitals/I&O's: Vital Signs Temp Pulse Resp BP Pulse Ox 98.8 F 82 18 142/76 H 97 08/22/19 09:29 08/22/19 09:29 08/22/19 09:29 08/22/19 09:29 08/22/19 09:29 Oxygen Delivery Method Room Air Weight: 104.05 kg Body Mass Index (BMI) 33.8 Finger Stick Blood Glucose 151 Intake and Output for Last 24 Hours 08/20/19 08/21/19 08/22/19 23:59 23:59 23:59 Intake Total 3457.75 / 3557.75 2715.75 / 3515.75 2762.5 / 2762.5 Output Total 1999 / 0 4400 / 4950 2250 / 2250 Balance 1457.75 / 857.75 -1684.25 / -1434.25 512.5 / 512.5 Microbiology Past 72 Hours 08/19/19 16:06 Bone - Right Foot Gram Stain - Final 08/19/19 16:06 Bone - Right Foot Wound Culture - Final No growth aerobically. 08/18/19 15:45 Wound - Right Foot Gram Stain - Final 08/18/19 15:45 Wound - Right Foot Wound Culture - Final Meth. resistant Staph. aureus Pseudomonas aeroginosa Citrobacter freundii Corynebacterium striatum 08/18/19 13:40 Blood Culture (Wb) - Anticubital Right Blood Culture - Preliminary No growth in 48 hours. 08/18/19 12:45 Blood Culture (Wb) - Anticubital Left Blood Culture - Preliminary No growth in 48 hours. Laboratory Results 08/21/19 17:15: POC Glucose 201 H 08/21/19 22:00: POC Glucose 226 H 08/22/19 06:39: POC Glucose 166 H 08/22/19 11:26: POC Glucose 227 H Current Medications Acetaminophen (Tylenol) 1,000 mg PO Q8 [facility] Last Admin: 08/22/19 15:12 Dose: 1,000 mg Documented by: Al Hydroxide/Mg Hydroxide (Mylanta Ii) 30 ml PO Q6H PRN PRN PRN Reason: Gastric Burning Albuterol Sulfate (Ventolin Aerosols) 2.5 mg INHALATION Q2H PRN PRN PRN Reason: Shortness of Breath/Wheezing Aspirin (Ecotrin) 81 mg PO DAILYCM [facility] Last Admin: 08/22/19 08:42 Dose: 81 mg Documented by: Atorvastatin Calcium (Lipitor) 5 mg PO QHS [facility] Last Admin: 08/21/19 22:01 Dose: 5 mg Documented by: Calcium Carbonate (Os-Lucho 500) 1,000 mg PO DAILY@0800 [facility] Last Admin: 08/22/19 08:46 Dose: 1,000 mg Documented by: Carvedilol (Coreg) 3.125 mg PO BID [facility] Last Admin: 08/22/19 08:42 Dose: 3.125 mg Documented by: Cholecalciferol (Vitamin D) 2,000 unit PO DAILY [facility] Last Admin: 08/22/19 08:41 Dose: 2,000 unit Documented by: Dextrose (D50w Syringe) 0 gm IV X1 PRN; Protocol PRN Reason: Hypoglycemia Gabapentin (Neurontin) 300 mg PO TID [facility] Last Admin: 08/22/19 15:11 Dose: 300 mg Documented by: Glucagon () 1 mg IM .X1 PRN PRN Reason: Hypoglycemia Sodium Chloride () 250 mls @ 15 mls/hr IV .[id number] PRN PRN Reason: Saline Flush Last Infusion: 08/22/19 15:55 Dose: Infused Documented by: Ibuprofen (Motrin) 400 mg PO Q4H PRN PRN PRN Reason: Pain Score 6-10/10 Last Admin: 08/22/19 08:41 Dose: 400 mg Documented by: Insulin Glargine (Lantus ([facility])) 24 units SC QHS [facility] Last Admin: 08/21/19 22:04 Dose: 26 u Documented by: Insulin Human Lispro (Humalog Kwikpen ([facility])) 0 unit SC ACHS [facility]; Protocol Last Admin: 08/22/19 11:28 Dose: 2 u Documented by: Levofloxacin (Levaquin Tablet) 750 mg PO DAILY@0600 [facility] Last Admin: 08/22/19 15:12 Dose: 750 mg Documented by: Losartan Potassium (Cozaar) 50 mg PO DAILY [facility] Last Admin: 08/22/19 08:42 Dose: 50 mg Documented by: Melatonin (Melatonin) 6 mg PO QHS PRN PRN Reason: SLEEP Last Admin: 08/20/19 22:52 Dose: 6 mg Documented by: Metronidazole (Flagyl) 500 mg PO TID [facility] Last Admin: 08/22/19 15:11 Dose: 500 mg Documented by: Nitroglycerin (Nitrostat) 0.4 mg SUBLINGUAL Q5M PRN PRN Reason: CARDIAC/CHEST PAIN Nutritional Formula (Lactose Free) (Glucerna Shake) 120 ml PO 4X/DAY [facility] Last Admin: 08/22/19 15:11 Dose: 120 ml Documented by: Ondansetron HCl (Zofran) 4 mg IV Q8H PRN PRN PRN Reason: NAUSEA/VOMITING Pantoprazole Sodium (Protonix) 20 mg PO DAILY [facility] Last Admin: 08/22/19 08:42 Dose: 20 mg Documented by: Senna/Docusate Sodium (Senokot-S, Marla-Colace) 2 tablet PO BID PRN PRN PRN Reason: Constipation Sodium Chloride () 10 - 40 ml IV UD PRN PRN Reason: SALINE FLUSH Discharge Diet: Low fat/ Low Cholesterol, 1800 Calorie Control Diet, 2000 mg Sodium Diet, Carb Control Diet Discharge Activity: Return to Normal Activity, Use Walker Weight Bearing Status: No weight bearing - right lower extremity Keep extremity elevated above heart level: Right Leg Call your doctor if your incision/area has: Continuous Slow Oozing, Sudden Increased Bleeding, Increased Pain/ Swelling, Increased Redness, Foul Smelling Discharge, Swelling at the incision site Call your doctor if you observe: Fever of 101 or Higher, Calf discomfort, Uncontrolled pain Cleanse incision/area with: Keep Dressing Clean & Dry Home Medications: Medications to take at Discharge Aspirin [Aspir-Low] 81 mg PO DAILY 04/30/17 Melatonin 6 mg PO QHS PRN 04/30/17 Atorvastatin Calcium 5 mg PO QHS 08/18/19 Carvedilol 3.125 mg PO BID 08/18/19 Cholecalciferol (Vitamin D3) [Vitamin D3] 2,000 unit PO DAILY 08/18/19 Gabapentin [Neurontin] 300 mg PO TID 08/18/19 Metformin HCl 1,000 mg PO BID 08/18/19 Metronidazole [Flagyl] 500 mg PO TID #21 tab 08/21/19 levoFLOXacin tablet [Levaquin tablet] 750 mg PO DAILY #7 tab 08/21/19 Acetaminophen [Tylenol] 1,000 mg PO Q8 tab 08/22/19 Albuterol Aerosols [Ventolin Aerosols] 2.5 mg INHALATION Q2H PRN PRN vial.neb. 08/22/19 Glucerna Shake 120 ml PO 4X/DAY liquid 08/22/19 Ibuprofen [Motrin] 400 mg PO Q4H PRN PRN tab 08/22/19 Insulin Glargine [Lantus SoloStar Pen] 24 units SUBCUT QHS pen 08/22/19 Insulin Lispro [Humalog KwikPen] See Protocol SUBCUT ACHS insuln.pen 08/22/19 Following Prescrptions Were Given to Patient: Metronidazole [Flagyl] 500 mg PO TID #21 tab levoFLOXacin tablet [Levaquin tablet] 750 mg PO DAILY #7 tab [facility] - Please follow up with your Primary Care Physician in: within 1-2 weeks of discharge Please Follow Up With: Leanne Medrano DPM When: [facility] next week; call [phone] Disposition: Jail facility Minutes spent on discharge:: 40 Patient Condition:: Stable Medical Necessity - Tobacco Use Smoking Status: Former smoker Tobacco Use: Non-smoker Meaningful Use Info Meaningful Use Diagnoses (Choose all that apply): None applicable Code Visit Inpatient E&M: 34036 Disch Hosp
[2019-08-22 17:16] LABS: Bedside Glucose 191 mg/dL (70-110)
[2019-08-22 18:28] VITALS: BP 145/74; PULSE 76; RESP 16; TEMP 36.7; O2SAT 98
== END 2019-08-22 18:40 | disposition skilled nursing facility (03) | DRG 617 ==
LOC: ED 12:45 → MS3 14:34
PROVIDERS: Podiatrist; Admitting Provider Internal Medicine; Emergency Provider Emergency Medicine; Visit Provider Internal Medicine
PROC: 0Y6M0Z9 Detachment at Right Foot, Partial 1st Ray, Open Approach (ICD-10-PCS; CPT 28805; principal; 2019-08-19 13:15)
DX: E11.69 Type 2 diabetes mellitus with other specified complication (principal); L03.115 Cellulitis of right lower limb; M86.8X7 Other osteomyelitis, ankle and foot; E11.628 Type 2 diabetes mellitus with other skin complications; K74.60 Unspecified cirrhosis of liver; E11.42 Type 2 diabetes mellitus with diabetic polyneuropathy; E11.65 Type 2 diabetes mellitus with hyperglycemia; I10 Essential (primary) hypertension; E78.5 Hyperlipidemia, unspecified; B95.62 Methicillin resistant Staphylococcus aureus infection as the cause of diseases classified elsewhere; L97.512 Non-pressure chronic ulcer of other part of right foot with fat layer exposed; B96.5 Pseudomonas (aeruginosa) (mallei) (pseudomallei) as the cause of diseases classified elsewhere; B96.89 Other specified bacterial agents as the cause of diseases classified elsewhere; D69.6 Thrombocytopenia, unspecified; M62.461 Contracture of muscle, right lower leg; Z86.19 Personal history of other infectious and parasitic diseases; Z87.891 Personal history of nicotine dependence; Z86.73 Personal history of transient ischemic attack (TIA), and cerebral infarction without residual deficits; Z79.4 Long term (current) use of insulin; Z89.421 Acquired absence of other right toe(s)
CPT/HCPCS: 36415; 73620; 73630; 73718; 76000; 80048; 80053; 80076; 80202; 82962; 83605; 85025; 85652; 86140; 87015; 87040; 87070; 87075; 87077; 87102; 87116; 87186; 87205; 87206; 87640; 88304; 88305; 88307; 88311; 88312; 93005; 93923; 93971; 97110; 97116; 97162; 97166; 97530; 97535; 97802; 99251; 99284; J7030; J7040; J7050; A4216; G0463; J2405

== ENCOUNTER 2019-08-22 18:50 | Inpatient (IN) | payer MEDICARE, OTHER, SELFPAY ==
[2019-08-19 11:46] VITALS: BMI 33.8
[2019-08-22 19:19] VITALS: BP 131/75; PULSE 77; RESP 20; TEMP 36.6; O2SAT 97; BMI 29.0; BMI 29.1
[2019-08-22 20:51] LABS: Bedside Glucose 219 mg/dL (70-110)
[2019-08-22] MEDS: Glucerna Shake 120 ML LIQUID PO (22:35)
[2019-08-22] MEDS: Acetaminophen 500 MG Tablet 1000 MG PO (22:36)
[2019-08-22] MEDS: Atorvastatin Calcium 10 MG Tablet 5 MG PO (22:37)
[2019-08-22] MEDS: metroNIDAZOLE 500 MG Tablet PO (22:37)
[2019-08-22] MEDS: MELATONIN 3 MG TABLET 6 MG PO (22:57)
[2019-08-22] MEDS: Insulin Lispro 100 UNIT/ML INSULN.PEN SC (22:58)
[2019-08-23] MEDS: Glucerna Shake 120 ML LIQUID PO ×3 (06:05→17:29)
[2019-08-23] MEDS: Carvedilol 3.125 MG TABLET PO ×2 (06:06→17:28)
[2019-08-23] MEDS: Acetaminophen 500 MG Tablet 1000 MG PO ×3 (06:06→22:09)
[2019-08-23] MEDS: levoFLOXacin 750 MG Tablet PO (06:06)
[2019-08-23] MEDS: metroNIDAZOLE 500 MG Tablet PO ×3 (06:06→22:09)
[2019-08-23 06:56] LABS: Bedside Glucose 249 mg/dL (70-110)
[2019-08-23] MEDS: Insulin Lispro 100 UNIT/ML INSULN.PEN SC (07:41)
[2019-08-23] MEDS: metFORMIN HCl 1,000 MG Tablet 1000 MG PO ×2 (07:44→17:24)
[2019-08-23] MEDS: Aspirin E.C. 81 MG Tablet PO (07:44)
[2019-08-23] MEDS: Gabapentin 300 MG Capsule PO ×3 (07:44→17:28)
[2019-08-23 08:00] LABS: Anion Gap 7 (5-15); BUN 17 mg/dL (7-18); BUN/Creat Ratio 19.8 RATIO (10-20); Calcium,Total 8.7 mg/dL (8.5-10.1); Chloride 105 mmol/L (98-107); Creatinine, Serum 0.86 mg/dL (0.70-1.30); EST Glomerular Filtration Rate 95 mL/min (>60); Est Glom Filt Rate - Afr Amer 115 mL/min (>60); Estimated Creatinine Clearance 98.07 ml/min; Glucose 244 mg/dL (74-106); Potassium 4.3 mmol/L (3.5-5.1); Sodium Level 138 mmol/L (136-145)
--- NOTE | 2019-08-23 08:28 | NURSING ---
IN TO CHANGE PT DRESSING.
--- NOTE | 2019-08-23 09:01 | NURSING ---
Patient states he does not wish to have the influenza vaccination at this time but may change his mind in the future.
--- NOTE | 2019-08-23 09:41 | HP.PCM_ITS ---
Problem List (1) Debility Status: Acute (2) Diabetic foot ulcer Status: Chronic (3) History of transmetatarsal amputation of right foot Status: Acute (4) Hepatitis C Status: Chronic (5) Insomnia Status: Chronic (6) Vitamin D deficiency Status: Chronic (7) Pruritus Status: Chronic (8) Diabetic polyneuropathy Status: Chronic (9) Osteomyelitis of right foot Status: Chronic (10) Diabetic foot infection Status: Acute (11) Hypertension Status: Chronic Qualifiers: (12) Hyperlipidemia Status: Chronic Qualifiers: (13) Anxiety Status: Chronic (14) Diabetes Status: Chronic (15) Methicillin resistant Staph aureus culture positive Status: Acute History of Present Illness Date of Admission: 08/23/19 Chief Complaint: Here for rehabilitation, strengthening, wound care, prior to discharge home with . The patient is a 64 year old Male with below past medical history presented to [facility] Emergency Department 08/18/2019 with right foot swelling. 08/18/2019 Doppler ultrasound right lower extremity NEGATIVE DVT. 08/18/2019 X-ray right foot status post 4th toe amputation, 4th metatarsal amputation. 08/18/2019 MRI right mid foot showed osteomyelitis 3rd toe, foot ulcer, healed 2nd toe fracture, cellulitis right foot. 08/18/2019 LOPEZ Doppler normal. He sees wood pole treater at [facility] clinic. Right foot swollen, red, warm. Positive chills, subjective fever. WBC 7, CRP 114, ESR 24, Glucose 174, Lactic Acid normal. Blood cultures sent. Vancomycin, Zosyn given. 08/18/2019 Admit to Hospital. Vancomycin, Zosyn, consult podiatry, consult infectious disease for right foot cellulitis/ulcer. Chronic hepatitis C resolved with treatment. 08/18/2019 Dr. Luis recommended NWB right foot. 08/19/2019 Dr. Medrano performed right transmetatarsal amputation, open gastrocnemius recession right lower extremity. 08/19/2019 Dr. Flowers recommended Vancomycin, Zosyn. MRSA POSITIVE. 08/20/2019 MRSA POSITIVE on Vancomycin, Zosyn. 08/21/2019 Change Vancomycin, Zosyn to Levaquin, Flagyl for 1 more week course. MRSA infected right diabetic foot ulcer/osteomyelitis. 08/21/2019 Cultures growing MRSA, Pseudomonas Aeruginosa, Citrobacter, Corynebacterium. 08/22/2019 Admit to TCU with debility, here for rehabilitation, strengthening, wound care, prior to discharge home with . Past Medical History Past Medical History (Chronic Problems): Chronic Problems Type 2 diabetes mellitus with diabetic polyneuropathy (Chronic) Diabetic foot ulcer (Chronic) Hepatitis C (Chronic) Insomnia (Chronic) Vitamin D deficiency (Chronic) Pruritus (Chronic) Diabetic polyneuropathy (Chronic) Depression (Chronic) Delayed wound healing (Chronic) 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) Osteomyelitis of right foot (Chronic) Hammer toe of right foot (Chronic) Hypertension (Chronic) Hyperlipidemia (Chronic) Anxiety (Chronic) Diabetes (Chronic) Allergies morphine Adverse Reaction (Verified 08/18/19 11:57) Gets mean Home Medications: Ambulatory Orders Medication Instructions Recorded Aspirin [Aspir-Low] 81 mg PO DAILY 04/30/17 Melatonin 6 mg PO QHS PRN 04/30/17 Atorvastatin Calcium 5 mg PO QHS 08/18/19 Carvedilol 3.125 mg PO BID 08/18/19 Cholecalciferol (Vitamin D3) 2,000 unit PO DAILY 08/18/19 [Vitamin D3] Gabapentin [Neurontin] 300 mg PO TID 08/18/19 Metformin HCl 1,000 mg PO BID 08/18/19 Acetaminophen [Tylenol] 1,000 mg PO Q8 08/22/19 Albuterol Aerosols [Ventolin 2.5 mg INHALATION Q2H PRN PRN 08/22/19 Aerosols] vial.neb. Glucerna Shake 120 ml PO 4X/DAY 08/22/19 Ibuprofen [Motrin] 400 mg PO Q4H PRN PRN tab 08/22/19 Insulin Glargine [Lantus SoloStar 24 units SUBCUT QHS 08/22/19 Pen] Insulin Lispro [Humalog KwikPen] See Protocol SUBCUT ACHS 08/22/19 Metronidazole [Flagyl] 500 mg PO TID 08/22/19 levoFLOXacin tablet [Levaquin 750 mg PO DAILY 08/22/19 tablet] Surgical History: arthroscopy, knee - left, cholecystectomy, total hip arthroplasty - right x 2, - - s/p right 4th toe amputation Psychiatric History: Anxiety, Depression Lives: Spouse/ Significant Other Smoking Status: Former smoker Tobacco Use: Non-smoker Alcohol: None Drugs: Cocaine - now sober., Heroin - now sober. - *Family History Maternal History Items: Hypertension, - Paternal History Items: Cancer, - - father of cancer. Review of Systems Constitutional: Reports: Weakness. Denies: Chills, Fever, Weight Change HEENT: Denies: Head Aches, Sinus Congestion, Sinus Drainage Cardiovascular: Denies: Chest Pain, Palpitations Respiratory: Denies: Cough, Shortness of breath at rest, Sputum production Gastrointestinal: Denies: Abdominal Pain, Nausea, Vomiting Genitourinary: Denies: Dysuria Musculoskeletal: Denies: Joint Pain, Joint Tenderness Skin: Denies: Rash, Wounds Neurological: Denies: Numbness, Tingling, Focal weakness Psychiatric: Denies: Anxiety, Depression, Homicidal Ideations, Suicidal Ideations Hematologic/ Lymphatic: Denies: Easy Bruising, Easy Bleeding VTE Information - Inpt Only VTE Present on Admission: No VTE Mechan Device Prophylaxis: Knee High KATINA Hose VTE Pharm Prophylaxis ordered?: Yes Patient Problems: Active and Suspected Problems Debility (Acute) History of transmetatarsal amputation of right foot (Acute) Methicillin resistant Staph aureus culture positive (Acute) - Physical Exam Vitals/I&O's: Vital Signs Temp Pulse Resp BP Pulse Ox 97.9 F 77 20 H 131/75 H 97 08/22/19 19:19 08/22/19 19:19 08/22/19 19:19 08/22/19 19:19 08/22/19 19:19 Oxygen Delivery Method Room Air Weight: 99.972 kg Body Mass Index (BMI) 29.0 Finger Stick Blood Glucose 151 Intake and Output for Last 24 Hours 08/21/19 08/22/19 08/23/19 23:59 23:59 23:59 Intake Total 360 / 360 Balance 360 / 360 General: Alert, Oriented x3, Cooperative HEENT: Atraumatic, PERRLA, EOMI, Normocephalic Neck: Supple, No JVD, Negative Carotid Bruits Lungs: Clear to auscultation, Normal air movement Cardiovascular: Regular rate, No murmurs Abdomen: Bowel Sounds Present, Soft, Non Tender Extremities: No edema, Capillary Refill Less than 3 Seconds, - - Right transmetatarsal amputation, dressed. Skin: No rashes, No breakdown Musculoskeletal: No Tenderness to Palpation of Joints or Extremities Neurological: Cranial nerves II-XII grossly intact Psych/Mental Status: Normal Affect, Appropriate Laboratory Results 08/22/19 20:44: POC Glucose 219 H 08/23/19 06:34: POC Glucose 249 H 08/23/19 07:04: Sodium 138, Potassium 4.3, Chloride 105, Carbon Dioxide 26.0, Anion Gap 7, BUN 17, Creatinine 0.86, Estim Creat Clear Calc 98.07, Est GFR (MDRD) Af Amer 115, Est GFR (MDRD) Non-Af 95, BUN/Creatinine Ratio 19.8, Glucose 244 H, Calcium 8.7 Current Medications Acetaminophen (Tylenol) 1,000 mg PO Q8 [facility] Last Admin: 08/23/19 06:06 Dose: 1,000 mg Documented by: Albuterol Sulfate (Ventolin Aerosols) 2.5 mg INHALATION Q2H PRN PRN PRN Reason: Shortness of Breath/Wheezing [facility] Last Admin: 08/23/19 07:44 Dose: 81 mg Documented by: Atorvastatin Calcium (Lipitor) 5 mg PO QHS [facility] Last Admin: 08/22/19 22:37 Dose: 5 mg Documented by: Carvedilol (Coreg) 3.125 mg PO BID [facility] Last Admin: 08/23/19 06:06 Dose: 3.125 mg Documented by: Cholecalciferol (Vitamin D) 2,000 unit PO DAILY [facility] Last Admin: 08/23/19 06:06 Dose: 2,000 unit Documented by: Emollient Ointment (Eucerin Intensive Repair) 1 applic TOPICAL 0600,2200 [facility]; Protocol Gabapentin (Neurontin) 300 mg PO TIDCM [facility] Last Admin: 08/23/19 07:44 Dose: 300 mg Documented by: Ibuprofen (Motrin) 400 mg PO Q4H PRN PRN PRN Reason: Pain Score 6-10/10 Influenza Virus Vaccine Quadrival (Flucelvax /Fluzone ) 0.5 ml IM .ONCE ONE Stop: 08/23/19 10:01 Last Admin: 08/23/19 09:03 Dose: Not Given Documented by: Insulin Glargine (Lantus ([facility])) 24 units SC QHS [facility] Last Admin: 08/22/19 22:38 Dose: 24 units Documented by: Insulin Human Lispro (Humalog Kwikpen ([facility])) 0 unit SC ACHS [facility]; Protocol Last Admin: 08/23/19 07:41 Dose: 3 u Documented by: Levofloxacin (Levaquin Tablet) 750 mg PO DAILY [facility] Stop: 08/30/19 06:01 Last Admin: 08/23/19 06:06 Dose: 750 mg Documented by: Melatonin (Melatonin) 6 mg PO QHS PRN PRN Reason: SLEEP Last Admin: 08/22/19 22:57 Dose: 6 mg Documented by: Metformin HCl (Glucophage) 1,000 mg PO BIDCM [facility] Last Admin: 08/23/19 07:44 Dose: 1,000 mg Documented by: Metronidazole (Flagyl) 500 mg PO TID [facility] Stop: 08/29/19 22:01 Last Admin: 08/23/19 06:06 Dose: 500 mg Documented by: Nutritional Formula (Aries - Farley Flavor) [facility] Last Admin: 08/23/19 07:45 Dose: 1 packet Documented by: Nutritional Formula (Lactose Free) (Glucerna Shake) 120 ml PO 4X/DAY [facility] Last Admin: 08/23/19 06:05 Dose: 120 ml Documented by: Tuberculin PPD (Tubersol, Aplisol, Ppd) 5 tu ID X1 ONE Stop: 08/23/19 10:01 Tuberculin PPD (Tubersol, Aplisol, Ppd) 5 tu ID X1 ONE Stop: 08/30/19 10:01 Assessment/Plan All Active Problems Debility (Acute) History of transmetatarsal amputation of right foot (Acute) Methicillin resistant Staph aureus culture positive (Acute) H/O alcohol abuse (Acute) H/O drug abuse (Acute) Diabetic foot infection (Acute) Cellulitis (Acute) Preop cardiovascular exam (Acute) Troponin I above reference range (Acute) Stroke (Acute) 64 year old male with below past medical history hospitalized for infected right diabetic foot ulcer/osteomyelitis, underwent right transmetatarsal amputation, open gastrocnemius recession right lower extremity 08/19/[address] Medrano, complicated by MRSA, admitted to TCU with debility, here for rehabilitation, strengthening, wound care, prior to discharge home with . * Debility - PT/OT. * Pain - Tylenol 1000MG Q8H, Ibuprofen 400MG Q4H pain (6-10) * Bowel - Miralax 17GM daily, Senna/colace 1 tablet BID, Dulcolax 10MG daily [place] N. * Adult immunization - Fluzone given, Administer Prevnar 13 and/or Pneumovax 23 as necessary. * DVT prophylaxis - Lovenox 40MG SC daily. * Shortness of breath - Ventolin 2.5MG nebulized Q2H PRN. * CV prophylaxis - Aspirin 81MG daily. * Hyperlipidemia - Atorvastatin 5MG QHS, consider high intensity 40MG QHS. * Hypertension - Coreg 3.125MG BID. * Vitamin D deficiency - D3 2000IU daily. * Skin irritation - Eucerin BID. * Diabetic polyneuropathy - Gabapentin 300MG TID. * Nutrition - Glucerna shake 120ML 4x/day, Aries 1 packet BID. * Diabetes Mellitus II - Metformin 1000G BID, Lantus 24 units daily, add Humalog 8 units TIDAC. * Right diabetic foot ulcer infection status post right transmetatarsal amputation - Levaquin 750MG daily thru 08/30/2019, Flagyl 500MG TID thru 08/29/2019. * Insomnia - Melatonin 6MG QHS PRN. * MRSA - contact isolation.
[2019-08-23] MEDS: Tuberculin,Purif.prot.deriv. 50 TU/ML Vial 5 ML ID (10:16)
--- NOTE | 2019-08-23 10:50 | NURSING ---
called and updated on next scheduled time of dressing change
--- NOTE | 2019-08-23 11:30 | NURSING ---
Patient states she is nauseated and has a headache. Tylenol due at 1400. Patient given saltine crackers and travis for nausea.
[2019-08-23] MEDS: Insulin Lispro 100 UNIT/ML INSULN.PEN 8 UNIT SC ×2 (11:46→17:21)
[2019-08-23 11:55] LABS: Bedside Glucose 160 mg/dL (70-110)
[2019-08-23 16:00] VITALS: BP 129/71; PULSE 74; RESP 20; TEMP 36.9; O2SAT 96
[2019-08-23 17:00] LABS: Bedside Glucose 151 mg/dL (70-110)
[2019-08-23] MEDS: Senna/Docusate Sodium 1 Tablet PO (17:29)
[2019-08-23 21:30] LABS: Bedside Glucose 163 mg/dL (70-110)
[2019-08-23] MEDS: Atorvastatin Calcium 10 MG Tablet 5 MG PO (22:08)
[2019-08-23] MEDS: MELATONIN 3 MG TABLET 6 MG PO (22:30)
--- NOTE | 2019-08-24 03:34 | NURSING ---
Patient on contact precautions for MRSA in wound. All care provided to patient in patient room.
[2019-08-24] MEDS: Carvedilol 3.125 MG TABLET PO ×2 (06:02→17:05)
[2019-08-24] MEDS: metroNIDAZOLE 500 MG Tablet PO ×3 (06:02→22:49)
[2019-08-24] MEDS: Polyethylene Glycol 3350 17 GM PACKET PO (06:02)
[2019-08-24] MEDS: Senna/Docusate Sodium 1 Tablet PO ×2 (06:02→17:05)
[2019-08-24] MEDS: levoFLOXacin 750 MG Tablet PO (06:02)
[2019-08-24] MEDS: Acetaminophen 500 MG Tablet 1000 MG PO ×3 (06:02→22:52)
[2019-08-24] MEDS: Enoxaparin 40 MG/0.4 ML Syringe SC (06:03)
[2019-08-24 06:36] LABS: Bedside Glucose 159 mg/dL (70-110)
[2019-08-24 06:52] LABS: Absolute Lymphocyte Count 0.89 X10^3/uL (0.83-4.51); Absolute Neutrophil Count 3.1 X10^3/uL (2.0-7.7); Basophil# 0.05 X10^3/uL; Eosinophil# 0.23 X10^3/uL; Eosinophils% 4.8 % (0-5); Hematocrit 42.3 % (40-54); Hemoglobin 13.5 g/dL (13.0-16.5); Lymphocyte # 0.89 X10^3/ul (4.0); Lymphocyte % 18.7 % (19-41); Mean Corp Hgb Conc 31.9 g/dL (32-36); Mean Corpuscular Hgb 28.3 pg (27.0-32.0); Mean Corpuscular Volume 88.7 fL (80-94); Mean Platelet Vol. 9.1 fl (6.2-12.0); Monocyte# 0.42 X10^3/uL; Monocyte% 8.8 % (0-10); NRBC Flagged by Analyzer 0 % (0-5); Neutrophil # 3.14 X10^3/uL (2.7-7.7); Neutrophil % 65.9 % (47-70); Platelet Count 175 K/mm3 (150-450); RBC Distribution Width CV 12.8 % (11.6-14.6); RBC Distribution Width SD 41.5 fl (35.1-43.9); Red Blood Count 4.77 M/mm3 (4.6-6.2); White Blood Count 4.8 K/mm3 (4.4-11.0)
[2019-08-24 06:53] LABS: Erythrocyte Sedimentation Rate 10 mm/hr (0-20)
[2019-08-24 07:09] LABS: Hemoglobin A1c 7.3 % (4.2-6.3)
--- NOTE | 2019-08-24 07:40 | PN_ITS ---
Patient Problems: Active and Suspected Problems Debility (Acute) History of transmetatarsal amputation of right foot (Acute) Methicillin resistant Staph aureus culture positive (Acute) Subjective: This 64-year-old diabetic male was seen bedside postoperative day #5 right transmetatarsal amputation open gastrocnemius recession. He denies surgical site pain. He denies fever, chill, nausea, vomiting, shortness of breath, chest pain, or calf pain. He was seen in the transitional care unit. - Physical Exam Vitals/I&O's: Vital Signs Temp Pulse Resp BP Pulse Ox 98.5 F 74 20 H 129/71 H 96 08/23/19 16:00 08/23/19 16:00 08/23/19 16:00 08/23/19 16:00 08/23/19 16:00 Oxygen Delivery Method Room Air Weight: 99.972 kg Body Mass Index (BMI) 29.0 Finger Stick Blood Glucose 151 Intake and Output for Last 24 Hours 08/22/19 08/23/19 08/24/19 23:59 23:59 23:59 Intake Total 840 / 840 Balance 840 / 840 General: Alert, Oriented x3, Cooperative HEENT: Atraumatic Extremities: No cyanosis, Capillary Refill Less than 3 Seconds - Dorsal and plantar amputation stump site right lower extremity, No Calf Tenderness - Negative Karen and Taylor signs, Edema - Resolved right lower extremity, Peripheral Pulses Normal, - - Improved ankle dorsiflexion range of motion with the knee extended compared to preoperative status Skin: Incision - Amputation stump incision flap closure site and also the gastrocnemius leg recession site is well and coapted with sutures in place. There is no gapping, erythema, streaking, duskiness, necrosis, exposed deep tissue, maceration, or infection. The peripheral skin is atrophic. Musculoskeletal: No Tenderness to Palpation of Joints or Extremities, Muscle Wasting, - - Transmetatarsal amputation right lower extremity. Compartments are soft to palpate right lower extremity Neurological: - - Lack of normal epicritic sensation light touch is consistent with neuropathy Psych/Mental Status: Normal Affect, Appropriate Laboratory Results 08/23/19 07:04: Sodium 138, Potassium 4.3, Chloride 105, Carbon Dioxide 26.0, Anion Gap 7, BUN 17, Creatinine 0.86, Estim Creat Clear Calc 98.07, Est GFR (MDRD) Af Amer 115, Est GFR (MDRD) Non-Af 95, BUN/Creatinine Ratio 19.8, Glucose 244 H, Calcium 8.7 08/23/19 11:44: POC Glucose 160 H 08/23/19 16:49: POC Glucose 151 H 08/23/19 21:11: POC Glucose 163 H 08/24/19 06:28: WBC 4.8, RBC 4.77, Hgb 13.5, Hct 42.3, MCV 88.7, MCH 28.3, MCHC 31.9 L, RDW Std Deviation 41.5, RDW Coeff of Hakeem 12.8, Plt Count 175, MPV 9.1, Immature Gran % (Auto) 0.800, Neut % (Auto) 65.9, Lymph % (Auto) 18.7 L, Kings % (Auto) 8.8, Eos % (Auto) 4.8, Baso % (Auto) 1.0, Absolute Neuts (auto) 3.1, Absolute Lymphs (auto) 0.89, Nucleated RBC % 0, ESR 10 08/24/19 06:28: C-React Prot Ext Range 10.40 H 08/24/19 06:28: Hemoglobin A1c 7.3 H 08/24/19 06:32: POC Glucose 159 H Current Medications Acetaminophen (Tylenol) 1,000 mg PO Q8 [facility] Last Admin: 08/24/19 06:02 Dose: 1,000 mg Documented by: Albuterol Sulfate (Ventolin Aerosols) 2.5 mg INHALATION Q2H PRN PRN PRN Reason: Shortness of Breath/Wheezing Aspirin (Ecotrin) 81 mg PO DAILYCM [facility] Last Admin: 08/23/19 07:44 Dose: 81 mg Documented by: Atorvastatin Calcium (Lipitor) 5 mg PO QHS [facility] Last Admin: 08/23/19 22:08 Dose: 5 mg Documented by: Bisacodyl (Dulcolax) 10 mg PO DAILY PRN PRN Reason: Constipation Carvedilol (Coreg) 3.125 mg PO BID [facility] Last Admin: 08/24/19 06:02 Dose: 3.125 mg Documented by: Cholecalciferol (Vitamin D) 2,000 unit PO DAILY [facility] Last Admin: 08/24/19 06:02 Dose: 2,000 unit Documented by: Emollient Ointment (Eucerin Intensive Repair) 1 applic TOPICAL 0600,2200 [facility]; Protocol Last Admin: 08/24/19 06:05 Dose: 1 applicatio Documented by: Enoxaparin Sodium (Lovenox) 40 mg SC DAILY@0600 [facility] Last Admin: 08/24/19 06:03 Dose: 40 mg Documented by: Gabapentin (Neurontin) 300 mg PO TIDCM [facility] Last Admin: 08/23/19 17:28 Dose: 300 mg Documented by: Ibuprofen (Motrin) 400 mg PO Q4H PRN PRN PRN Reason: Pain Score 6-10/10 Insulin Glargine (Lantus ([facility])) 24 units SC QHS [facility] Last Admin: 08/23/19 22:10 Dose: 24 units Documented by: Insulin Human Lispro (Humalog Kwikpen ([facility])) 8 unit SC TIDAC [facility] Last Admin: 08/23/19 17:21 Dose: 8 u Documented by: Levofloxacin (Levaquin Tablet) 750 mg PO DAILY [facility] Stop: 08/30/19 06:01 Last Admin: 08/24/19 06:02 Dose: 750 mg Documented by: Melatonin (Melatonin) 6 mg PO QHS PRN PRN Reason: SLEEP Last Admin: 08/23/19 22:30 Dose: 6 mg Documented by: Metformin HCl (Glucophage) 1,000 mg PO BIDCM [facility] Last Admin: 08/23/19 17:24 Dose: 1,000 mg Documented by: Metronidazole (Flagyl) 500 mg PO TID [facility] Stop: 08/29/19 22:01 Last Admin: 08/24/19 06:02 Dose: 500 mg Documented by: Nutritional Formula (Aries - [place] Flavor) 1 packet PO BIDCM [facility] Last Admin: 08/23/19 17:27 Dose: 1 packet Documented by: Nutritional Formula (Lactose Free) (Glucerna Shake) 120 ml PO 4X/DAY [facility] Last Admin: 08/24/19 06:03 Dose: Not Given Documented by: Polyethylene Glycol (Miralax) 17 gm PO DAILY [facility] Last Admin: 08/24/19 06:02 Dose: 17 gm Documented by: Senna/Docusate Sodium (Senokot-S, Marla-Colace) 1 tablet PO BID [facility] Last Admin: 08/24/19 06:02 Dose: 1 tablet Documented by: Tuberculin PPD (Tubersol, Aplisol, Ppd) 5 tu ID [id number] ONE Stop: 08/30/19 10:01 Medical Necessity - Tobacco Use Smoking Status: Former smoker Tobacco Use: Non-smoker Assessment/Plan All Active Problems Debility (Acute) History of transmetatarsal amputation of right foot (Acute) Methicillin resistant Staph aureus culture positive (Acute) H/O alcohol abuse (Acute) H/O drug abuse (Acute) Diabetic foot infection (Acute) Cellulitis (Acute) Preop cardiovascular exam (Acute) Troponin I above reference range (Acute) Stroke (Acute) POD # 5 right transmetatarsal amputation with open gastrocnemius recession for treatment of osteomyelitis third metatarsal head and proximal phalanx base, chronic forefoot deformities, chronic ulcer, and gastrocnemius equinus Diabetes w/ peripheral neuropathy (hemoglobin A1C 7.4%) History of alcohol and drug abuse Liver cirrhosis history of hepatitis C MRSA positive Reviewed diagnostic data and discussed the case with the patient including his recent surgical intervention. He remains afebrile and his vital signs are stable. He does not have any leukocytosis at this time; WBC 4.8. Inflammatory markers are downtrending with esr 10 and crp 10.4. The postoperative dressing change was performed and this appears very stable and intact. A new dressing consisting of Betadine, gauze, Kerlix, abdominal pads, and Julián wrap was applied. Additionally, a well-padded posterior mold splint was applied with the right lower extremity in a rectus position today. His clearance cultures from surgery are pending with no bacteria growth so far (micro) and no path report yet. His preoperative wound cultures are noted with multi-organism growth including MRSA, PsA, citrobacter, corynebacteria. Per infectious disease recommendations, he will continue on one week of PO levaquin and flagyl after surgery. Strict nonweightbearing is recommended to optimize healing. Continue with nutritional supplementation proper glycemic control to optimize healing. To continue incentive spirometer use. Diabetes and medical management per medicine team appreciated. Podiatry will continue to follow while in house on a weekly basis. Please do not hesitate to call if any questions. Leanne Medrano DPM, [facility] [phone]
[2019-08-24] MEDS: Insulin Lispro 100 UNIT/ML INSULN.PEN 8 UNIT SC ×3 (08:50→17:52)
[2019-08-24] MEDS: Gabapentin 300 MG Capsule PO ×3 (08:50→17:05)
[2019-08-24] MEDS: metFORMIN HCl 1,000 MG Tablet 1000 MG PO ×2 (08:50→17:05)
[2019-08-24] MEDS: Aspirin E.C. 81 MG Tablet PO (08:53)
--- NOTE | 2019-08-24 08:59 | NURSING ---
IN TO CHANGE PT DRESSING TO FOOT AND APPLIED SOFT SPLINT. PT IN PRECAUTIONS FOR MRSA IN FOOT. ALL CARE GIVEN IN ROOM.
[2019-08-24 11:05] VITALS: PULSE 80; RESP 18; O2SAT 98
[2019-08-24] MEDS: Glucerna Shake 120 ML LIQUID PO ×2 (11:54→17:02)
[2019-08-24 12:00] LABS: Bedside Glucose 145 mg/dL (70-110)
[2019-08-24 15:49] VITALS: BP 143/73; PULSE 81; RESP 16; TEMP 37.1; O2SAT 97
--- NOTE | 2019-08-24 16:05 | NURSING ---
EGG FACTORY WORKER REPORTED TO THIS NURSE THAT PT WAS UP IN ROOM WALKING. THIS NURSE WENT AND ASKED PT,PT STATED YES MY WAS HELPING ME. EXPLAINED TO PT ON WHY HE NEEDS TO CALL FOR ANY HELP AND TO TALK TO THERAPY TOMORROW ABOUT HELPING IN TRANSFERRING PT IN ROOM. PT STATED HE UNDER STOOD AND WAS SORRY. PT ALSO CONCERN WITH RIGHT LEG TURNING OUT GRAHAM WHILE SITTING. PUT PILLOW BESIDE LOWER LEG SO LEG AND FOOT WOULD STAY STRAIGHT. PT STATED THANK YOU AND IT FEELS BETTER. WILL CONTINUE TO MONITOR.
[2019-08-24 17:15] LABS: Bedside Glucose 109 mg/dL (70-110)
[2019-08-24 21:21] LABS: Bedside Glucose 147 mg/dL (70-110)
[2019-08-24] MEDS: Atorvastatin Calcium 10 MG Tablet 5 MG PO (22:51)
[2019-08-24] MEDS: MELATONIN 3 MG TABLET 6 MG PO (23:16)
--- NOTE | 2019-08-25 00:42 | NURSING ---
atient on contact precautions for MRSA in wound. All care provided to patient in patient room.
[2019-08-25 06:31] LABS: Bedside Glucose 143 mg/dL (70-110)
[2019-08-25] MEDS: Glucerna Shake 120 ML LIQUID PO ×4 (06:43→20:53)
[2019-08-25] MEDS: Carvedilol 3.125 MG TABLET PO ×2 (06:44→17:46)
[2019-08-25] MEDS: Polyethylene Glycol 3350 17 GM PACKET PO (06:44)
[2019-08-25] MEDS: levoFLOXacin 750 MG Tablet PO (06:44)
[2019-08-25] MEDS: Senna/Docusate Sodium 1 Tablet PO ×2 (06:44→17:45)
[2019-08-25] MEDS: Acetaminophen 500 MG Tablet 1000 MG PO ×3 (06:44→20:53)
[2019-08-25] MEDS: Enoxaparin 40 MG/0.4 ML Syringe SC (06:45)
[2019-08-25] MEDS: metroNIDAZOLE 500 MG Tablet PO ×3 (06:46→20:54)
[2019-08-25] MEDS: Insulin Lispro 100 UNIT/ML INSULN.PEN 8 UNIT SC ×3 (06:52→17:39)
[2019-08-25] MEDS: Gabapentin 300 MG Capsule PO ×3 (06:53→17:45)
[2019-08-25] MEDS: Aspirin E.C. 81 MG Tablet PO ×2 (10:01→10:02)
[2019-08-25] MEDS: metFORMIN HCl 1,000 MG Tablet 1000 MG PO ×2 (10:03→17:46)
[2019-08-25 11:01] LABS: Bedside Glucose 175 mg/dL (70-110)
--- NOTE | 2019-08-25 14:58 | PHA.CONS_ITS ---
<Patricia Ma - Last Filed: 08/25/19 14:58> Progress Note - Pharmacy Subjective: [] Objective: Allergies morphine Adverse Reaction (Verified 08/18/19 11:57) Gets mean Current Medications Generic Name Dose Route Start Last Admin Trade Name Freq PRN Reason Stop Dose Admin Acetaminophen 1,000 mg 08/22/19 22:00 08/25/19 14:43 Tylenol PO 1,000 mg Q8 KAREN Administration Albuterol Sulfate 2.5 mg 08/22/19 19:52 Ventolin Aerosols INHALATION Q2H PRN PRN Shortness of Breath/Wheezing Aspirin 81 mg 08/23/19 08:00 08/25/19 10:02 Ecotrin PO 81 mg DAILYCM KAREN Administration Atorvastatin Calcium 5 mg 08/22/19 22:00 08/24/19 22:51 Lipitor PO 5 mg QHS KAREN Administration Bisacodyl 10 mg 08/23/19 10:07 Dulcolax PO DAILY PRN Constipation Carvedilol 3.125 mg 08/23/19 06:00 08/25/19 06:44 Coreg PO 3.125 mg BID KAREN Administration Cholecalciferol 2,000 unit 08/23/19 06:00 08/25/19 06:44 Vitamin D PO 2,000 unit DAILY KAREN Administration Emollient Ointment 1 applic 08/23/19 22:00 08/25/19 06:46 Eucerin Intensive Repair TOPICAL 1 applicatio 0600,2200 KAREN Administration Protocol Enoxaparin Sodium 40 mg 08/24/19 06:00 08/25/19 06:45 Lovenox SC 40 mg DAILY@0600 KAREN Administration Gabapentin 300 mg 08/23/19 07:45 08/25/19 12:18 Neurontin PO 300 mg TIDCM KAREN Administration Ibuprofen 400 mg 08/22/19 19:52 Motrin PO Q4H PRN PRN Pain Score 6-10/10 Insulin Glargine 24 units 08/22/19 22:00 08/24/19 23:06 Lantus (Bkc) SC 24 units QHS KAREN Administration Insulin Human Lispro 8 unit 08/23/19 11:45 08/25/19 12:18 Humalog Kwikpen (B[facility]) SC 8 u TIDAC KAREN Administration Levofloxacin 750 mg 08/23/19 06:00 08/25/19 06:44 Levaquin Tablet PO 08/30/19 06:01 750 mg DAILY KAREN Administration Melatonin 6 mg 08/22/19 19:52 08/24/19 23:16 Melatonin PO 6 mg QHS PRN Administration SLEEP Metformin HCl 1,000 mg 08/23/19 08:00 08/25/19 10:03 Glucophage PO 1,000 mg BIDCM KAREN Administration Metronidazole 500 mg 08/22/19 22:00 08/25/19 14:43 Flagyl PO 08/29/19 22:01 500 mg TID KAREN Administration Nutritional Formula 1 packet 08/23/19 08:00 08/25/19 10:02 Aries - [place] Flavor PO 1 packet BIDCM KAREN Administration Nutritional Formula (Lactose Free) 120 ml 08/22/19 22:00 08/25/19 12:16 Glucerna Shake PO 120 ml 4X/DAY KAREN Administration Polyethylene Glycol 17 gm 08/24/19 06:00 08/25/19 06:44 Miralax PO 17 gm DAILY KAREN Administration Senna/Docusate Sodium 1 tablet 08/23/19 18:00 08/25/19 06:44 Senokot-S, Marla-Colace PO 1 tablet BID KAREN Administration Tuberculin PPD 5 tu 08/30/19 10:00 Tubersol, Aplisol, Ppd ID 08/30/19 10:01 X1 ONE Problem List Debility (Acute) Diabetic foot ulcer (Chronic) History of transmetatarsal amputation of right foot (Acute) Hepatitis C (Chronic) Insomnia (Chronic) Vitamin D deficiency (Chronic) Pruritus (Chronic) Diabetic polyneuropathy (Chronic) Depression (Chronic) Methicillin resistant Staph aureus culture positive (Acute) Vital Signs Temp Pulse Resp BP Pulse Ox 98.7 F 81 16 143/73 H 97 08/24/19 15:49 08/24/19 15:49 08/24/19 15:49 08/24/19 15:49 08/24/19 15:49 Oxygen Delivery Method Room Air Weight: 99.972 kg Body Mass Index (BMI) 29.0 Finger Stick Blood Glucose 151 Sodium 138 mmol/L (136-145) 08/23/19 07:04 Potassium 4.3 mmol/L (3.5-5.1) 08/23/19 07:04 Chloride 105 mmol/L (98-107) 08/23/19 07:04 Carbon Dioxide 26.0 mmol/L (21.0-32.0) 08/23/19 07:04 Anion Gap 7 (5-15) 08/23/19 07:04 BUN 17 mg/dL (7-18) 08/23/19 07:04 Creatinine 0.86 mg/dL (0.70-1.30) 08/23/19 07:04 Est GFR (MDRD) Af Amer 115 mL/min (>60) 08/23/19 07:04 Est GFR (MDRD) Non-Af 95 mL/min (>60) 08/23/19 07:04 BUN/Creatinine Ratio 19.8 RATIO (10-20) 08/23/19 07:04 Glucose 244 mg/dL (74-106) H 08/23/19 07:04 Assessment/Plan: 1. Pain: acetaminophen 1000mg PO Q8H, ibuprofen 400mg PO Q4H PRN pain 6-07/17. Please continue to monitor for pain and PRN usage. 2. R diabetic foot ulcer s/p amputation: levofloxacin 750mg PO daily (thru 08/30/19) and metronidazole 500mg PO TID (thru 08/29/19). Please continue to monitor for S/S of infection and diarrhea. 3. Hypertension: carvedilol 3.125mg PO BID. Please continue to monitor BP and HR. *4. Hyperlipidemia: atorvastatin 5mg PO QHS. Please see physician note regarding dose. Last lipid panel from 2017. Please consider ordering a lipid panel now and then annually as clinically appropriate. Please continue to monitor LFTs and S/S of muscle pain. 5. CV prophylaxis: aspirin 81mg PO DAILYCM. Please continue to monitor for S/S of bleeding. 6. Type II Diabetes Mellitus: metformin 1000mg PO BIDCM, insulin glargine 24units SC QHS, insulin lispro 8units SC TIDAC. Please continue to monitor for hypoglycemia. Recent A1c in chart. 7. DVT prophylaxis: enoxaparin 40mg SC daily. Please continue to monitor for S/S of bleeding, renal function and platelets. 8.Diabetic polyneuropathy: gabapentin 300mg PO TIDCM. Please continue to monitor renal function and for signs of confusion. *9. Vitamin D deficiency: cholecalciferol 2000units PO daily. Please consider ordering a Vitamin D level now and then annually as clinically appropriate. 10. Shortness of breath: albuterol sulfate 2.5mg inhalation Q2H PRN shortness of breath/wheezing. Please continue to monitor for SOB/wheezing. Psychotropic Medications: *1. Insomnia: melatonin 6mg PO QHS PRN sleep. Patient has taken 3/3 doses so far. Please consider changing to scheduled if clinically appropriate. Unnecessary Medications: Bowel Regimen: Miralax 17gm PO daily, senna/docusate 1T PO BID, bisacodyl 10mg PO daily PRN constipation. Please continue to monitor for constipation and PRN usage. Date of Note:: 08/25/19 - Provider Comments Provider responsibility: Provider responsible to enter orders to implement recommendations <Jimmy Valentin Chi - Last Filed: 08/25/19 17:42> Progress Note - Pharmacy Subjective: [] Objective: Allergies morphine Adverse Reaction (Verified 08/18/19 11:57) Gets mean Current Medications Generic Name Dose Route Start Last Admin Trade Name Freq PRN Reason Stop Dose Admin Acetaminophen 1,000 mg 08/22/19 22:00 08/25/19 14:43 Tylenol PO 1,000 mg Q8 KAREN Administration Albuterol Sulfate 2.5 mg 08/22/19 19:52 Ventolin Aerosols INHALATION Q2H PRN PRN Shortness of Breath/Wheezing Aspirin 81 mg 08/23/19 08:00 08/25/19 10:02 Ecotrin PO 81 mg DAILYCM KAREN Administration Atorvastatin Calcium 5 mg 08/22/19 22:00 08/24/19 22:51 Lipitor PO 5 mg QHS KAREN Administration Bisacodyl 10 mg 08/23/19 10:07 Dulcolax PO DAILY PRN Constipation Carvedilol 3.125 mg 08/23/19 06:00 08/25/19 06:44 Coreg PO 3.125 mg BID KAREN Administration Cholecalciferol 2,000 unit 08/23/19 06:00 08/25/19 06:44 Vitamin D PO 2,000 unit DAILY KAREN Administration Emollient Ointment 1 applic 08/23/19 22:00 08/25/19 06:46 Eucerin Intensive Repair TOPICAL 1 applicatio 0600,2200 KAREN Administration Protocol Enoxaparin Sodium 40 mg 08/24/19 06:00 11/18/19 06:45 Lovenox SC 40 mg DAILY@0600 KAREN Administration Gabapentin 300 mg 08/23/19 07:45 08/25/19 12:18 Neurontin PO 300 mg TIDCM KAREN Administration Ibuprofen 400 mg 08/22/19 19:52 Motrin PO Q4H PRN PRN Pain Score 6-10/10 Insulin Glargine 24 units 08/22/19 22:00 08/24/19 23:06 Lantus ([facility]) SC 24 units QHS KAREN Administration Insulin Human Lispro 8 unit 08/23/19 11:45 08/25/19 12:18 Humalog Kwikpen ([facility]) SC 8 u TIDAC KAREN Administration Levofloxacin 750 mg 08/23/19 06:00 08/25/19 06:44 Levaquin Tablet PO 08/30/19 06:01 750 mg DAILY KAREN Administration Melatonin 6 mg 08/22/19 19:52 08/24/19 23:16 Melatonin PO 6 mg QHS PRN Administration SLEEP Metformin HCl 1,000 mg 08/23/19 08:00 08/25/19 10:03 Glucophage PO 1,000 mg BIDCM KAREN Administration Metronidazole 500 mg 08/22/19 22:00 08/25/19 14:43 Flagyl PO 08/29/19 22:01 500 mg TID KAREN Administration Nutritional Formula 1 packet 08/23/19 08:00 08/25/19 10:02 Aries - [place] Flavor PO 1 packet BIDCM KAREN Administration Nutritional Formula (Lactose Free) 120 ml 08/22/19 22:00 08/25/19 12:16 Glucerna Shake PO 120 ml 4X/DAY KAREN Administration Polyethylene Glycol 17 gm 08/24/19 06:00 08/25/19 06:44 Miralax PO 17 gm DAILY KAREN Administration Senna/Docusate Sodium 1 tablet 08/23/19 18:00 08/25/19 06:44 Senokot-S, Marla-Colace PO 1 tablet BID KAREN Administration Tuberculin PPD 5 tu 08/30/19 10:00 Tubersol, Aplisol, Ppd ID 08/30/19 10:01 X1 ONE Problem List Debility (Acute) Diabetic foot ulcer (Chronic) History of transmetatarsal amputation of right foot (Acute) Hepatitis C (Chronic) Insomnia (Chronic) Vitamin D deficiency (Chronic) Pruritus (Chronic) Diabetic polyneuropathy (Chronic) Depression (Chronic) Methicillin resistant Staph aureus culture positive (Acute) Vital Signs Temp Pulse Resp BP Pulse Ox 98.2 F 98 20 H 140/78 H 96 08/25/19 15:36 08/25/19 15:36 08/25/19 15:36 08/25/19 15:36 08/25/19 15:36 Oxygen Delivery Method Room Air Weight: 99.972 kg Body Mass Index (BMI) 29.0 Finger Stick Blood Glucose 151 Sodium 138 mmol/L (136-145) 08/23/19 07:04 Potassium 4.3 mmol/L (3.5-5.1) 08/23/19 07:04 Chloride 105 mmol/L (98-107) 08/23/19 07:04 Carbon Dioxide 26.0 mmol/L (21.0-32.0) 08/23/19 07:04 Anion Gap 7 (5-15) 08/23/19 07:04 BUN 17 mg/dL (7-18) 08/23/19 07:04 Creatinine 0.86 mg/dL (0.70-1.30) 08/23/19 07:04 Est GFR (MDRD) Af Amer 115 mL/min (>60) 08/23/19 07:04 Est GFR (MDRD) Non-Af 95 mL/min (>60) 08/23/19 07:04 BUN/Creatinine Ratio 19.8 RATIO (10-20) 08/23/19 07:04 Glucose 244 mg/dL (74-106) H 08/23/19 07:04 Assessment/Plan: Psychotropic Medications: Unnecessary Medications: Bowel Regimen: - Provider Comments Provider responsibility: Provider responsible to enter orders to implement recommendations Provider Comments to Recommendations by Pharmacy: Agree
[2019-08-25 15:36] VITALS: BP 140/78; PULSE 98; RESP 20; TEMP 36.8; O2SAT 96
--- NOTE | 2019-08-25 17:05 | CHAPLAIN ---
Type of Pastoral Visit _x__ Initial Visit ___ Follow-up Visit ___ On-call Visit ___ General Patient Visit ___ Spiritual Assessment ___ Family Conference ___ Bereavement ___ Rapid Response ___ Code Blue ___ Other (describe below) Pastoral Care Referral From _x__ Patient ___ Family ___ Nurse ___ Physician ___ Wallpaper Embosser Helper ___ Senior Qa Tester ___ Other (describe below) Sacrament/Intervention _x__ Active listening ___ Anointing ___ Confucianist ___ Bereavement ___ Communion _x__ Safia exploration ___ _x__ Life review _x__ Prayer ___ Reconciliation ___ Sacrament of Sick ___ Supportive presence ___ Wedding ___ Other (describe below) Pastoral Comments
[2019-08-25 17:10] LABS: Bedside Glucose 135 mg/dL (70-110)
--- NOTE | 2019-08-25 17:38 | NURSING ---
pt remains in isolation for MRSA in wound, all treatment/care provided in pt room
[2019-08-25] MEDS: Atorvastatin Calcium 10 MG Tablet 5 MG PO (20:53)
[2019-08-25 21:05] LABS: Bedside Glucose 134 mg/dL (70-110)
[2019-08-25] MEDS: MELATONIN 3 MG TABLET 6 MG PO (22:03)
--- NOTE | 2019-08-26 01:39 | NURSING ---
Pt remains in contact isolation during shift d/t MRSA in wound. All care and treatment provided in room.
[2019-08-26] MEDS: metroNIDAZOLE 500 MG Tablet PO ×3 (06:02→22:08)
[2019-08-26] MEDS: Acetaminophen 500 MG Tablet 1000 MG PO ×3 (06:02→22:08)
[2019-08-26] MEDS: levoFLOXacin 750 MG Tablet PO (06:02)
[2019-08-26] MEDS: Enoxaparin 40 MG/0.4 ML Syringe SC (06:03)
[2019-08-26] MEDS: Glucerna Shake 120 ML LIQUID PO ×4 (06:03→22:08)
[2019-08-26] MEDS: Carvedilol 3.125 MG TABLET PO ×2 (06:03→18:18)
[2019-08-26 06:25] LABS: Bedside Glucose 163 mg/dL (70-110)
[2019-08-26] MEDS: Insulin Lispro 100 UNIT/ML INSULN.PEN 8 UNIT SC ×3 (08:10→18:20)
[2019-08-26] MEDS: metFORMIN HCl 1,000 MG Tablet 1000 MG PO ×2 (08:13→18:17)
[2019-08-26] MEDS: Gabapentin 300 MG Capsule PO ×3 (08:13→18:17)
--- NOTE | 2019-08-26 10:06 | NURSING ---
pt out of precautions, now modified, pt aware to wash his hands before leaving room for therapy or meal times. PT wound covered at all times. podiatry changes dressing, staff does not. no drng noted.
[2019-08-26 11:21] LABS: Bedside Glucose 176 mg/dL (70-110)
[2019-08-26 16:00] VITALS: BP 114/87; PULSE 87; RESP 18; TEMP 37.3; O2SAT 96
[2019-08-26 17:11] LABS: Bedside Glucose 216 mg/dL (70-110)
[2019-08-26] MEDS: Senna/Docusate Sodium 1 Tablet PO (18:18)
[2019-08-26 21:26] LABS: Bedside Glucose 206 mg/dL (70-110)
[2019-08-26] MEDS: Atorvastatin Calcium 10 MG Tablet 5 MG PO (22:08)
[2019-08-26] MEDS: MELATONIN 3 MG TABLET 6 MG PO (22:36)
[2019-08-27] MEDS: Acetaminophen 500 MG Tablet 1000 MG PO ×3 (05:59→21:54)
[2019-08-27] MEDS: levoFLOXacin 750 MG Tablet PO (05:59)
[2019-08-27] MEDS: Carvedilol 3.125 MG TABLET PO ×2 (05:59→17:59)
[2019-08-27] MEDS: metroNIDAZOLE 500 MG Tablet PO ×3 (05:59→21:53)
[2019-08-27] MEDS: Glucerna Shake 120 ML LIQUID PO ×4 (05:59→21:55)
[2019-08-27] MEDS: Enoxaparin 40 MG/0.4 ML Syringe SC (06:00)
[2019-08-27 06:31] LABS: Bedside Glucose 147 mg/dL (70-110)
[2019-08-27] MEDS: Gabapentin 300 MG Capsule PO ×3 (09:15→17:59)
[2019-08-27] MEDS: Insulin Lispro 100 UNIT/ML INSULN.PEN 8 UNIT SC ×3 (09:15→17:56)
[2019-08-27] MEDS: Aspirin E.C. 81 MG Tablet PO (09:15)
[2019-08-27] MEDS: metFORMIN HCl 1,000 MG Tablet 1000 MG PO ×2 (09:17→17:59)
[2019-08-27 10:00] VITALS: PULSE 86; O2SAT 97
[2019-08-27 11:40] LABS: Bedside Glucose 135 mg/dL (70-110)
--- NOTE | 2019-08-27 12:13 | NURSING ---
Dr Hernandez in to see pt and change dressing to rt foot.
--- NOTE | 2019-08-27 12:15 | PN_ITS ---
Patient Problems: Active and Suspected Problems Debility (Acute) History of transmetatarsal amputation of right foot (Acute) Methicillin resistant Staph aureus culture positive (Acute) Subjective: This 64-year-old diabetic male was seen bedside s/p right transmetatarsal amputation open gastrocnemius recession. Patient relates his pain is still well controlled. He denies fever, chills, nausea, vomiting, shortness of breath, chest pain, or calf pain. He has no new complaints today. - Physical Exam Vitals/I&O's: Vital Signs Temp Pulse Resp BP Pulse Ox 99.1 F 87 18 114/87 H 96 08/26/19 16:00 08/26/19 16:00 08/26/19 16:00 08/26/19 16:00 08/26/19 16:00 Oxygen Delivery Method Room Air Weight: 98.883 kg Body Mass Index (BMI) 29.0 Finger Stick Blood Glucose 151 Intake and Output for Last 24 Hours 08/25/19 08/26/19 08/27/19 23:59 23:59 23:59 Intake Total 1500 / 1500 1820 / 1820 480 / 480 Output Total 450 / 450 600 / 600 Balance 1050 / 1050 1220 / 1220 480 / 480 General: Alert, Oriented x3, Cooperative, No apparent distress Extremities: No cyanosis, Capillary Refill Less than 3 Seconds - To the distal aspect of the amputation site, No Calf Tenderness - Negative Karen and Taylor signs, Peripheral Pulses Normal Skin: Incision - Incision flap closure site as well as the gastrocnemius leg recession site remains well coapted with sutures intact. There is no gapping, erythema, streaking, duskiness, necrosis, exposed deep tissue, maceration, drainage, or any other signs of local infection noted at this time. The peripheral skin is atrophic. Musculoskeletal: No Tenderness to Palpation of Joints or Extremities, - - Transmetatarsal amputation right lower extremity Neurological: - - Lack of normal epicritic sensation consistent with patient's diabetic neuropathy status. Psych/Mental Status: Normal Affect, Appropriate Laboratory Results 08/26/19 17:02: POC Glucose 216 H 08/26/19 21:14: POC Glucose 206 H 08/27/19 06:14: POC Glucose 147 H 08/27/19 11:36: POC Glucose 135 H Current Medications Acetaminophen (Tylenol) 1,000 mg PO Q8 [facility] Last Admin: 08/27/19 05:59 Dose: 1,000 mg Documented by: Albuterol Sulfate (Ventolin Aerosols) 2.5 mg INHALATION Q2H PRN PRN PRN Reason: Shortness of Breath/Wheezing Aspirin (Ecotrin) 81 mg PO DAILYCM [facility] Last Admin: 08/27/19 09:15 Dose: 81 mg Documented by: Atorvastatin Calcium (Lipitor) 5 mg PO QHS [facility] Last Admin: 08/26/19 22:08 Dose: 5 mg Documented by: Bisacodyl (Dulcolax) 10 mg PO DAILY PRN PRN Reason: Constipation Carvedilol (Coreg) 3.125 mg PO BID [facility] Last Admin: 08/27/19 05:59 Dose: 3.125 mg Documented by: Cholecalciferol (Vitamin D) 2,000 unit PO DAILY [facility] Last Admin: 08/27/19 05:59 Dose: 2,000 unit Documented by: Dextrose (D50w Syringe) 0 gm IV X1 PRN; Protocol PRN Reason: Hypoglycemia Emollient Ointment (Eucerin Intensive Repair) 1 applic TOPICAL 0600,2200 [facility]; Protocol Last Admin: 08/27/19 06:02 Dose: 1 applicatio Documented by: Enoxaparin Sodium (Lovenox) 40 mg SC DAILY@0600 [facility] Last Admin: 08/27/19 06:00 Dose: 40 mg Documented by: Gabapentin (Neurontin) 300 mg PO TIDCM [facility] Last Admin: 08/27/19 09:15 Dose: 300 mg Documented by: Glucagon () 1 mg IM .X1 PRN PRN Reason: Hypoglycemia Ibuprofen (Motrin) 400 mg PO Q4H PRN PRN PRN Reason: Pain Score 6-10/10 Insulin Glargine (Lantus (Bkc)) 24 units SC QHS [facility] Last Admin: 08/26/19 22:10 Dose: 24 units Documented by: Insulin Human Lispro (Humalog Kwikpen (Bk)) 8 unit SC TIDAC [facility] Last Admin: 08/27/19 09:15 Dose: 8 u Documented by: Levofloxacin (Levaquin Tablet) 750 mg PO DAILY [facility] Stop: 08/30/19 06:01 Last Admin: 08/27/19 05:59 Dose: 750 mg Documented by: Melatonin (Melatonin) 6 mg PO QHS PRN PRN Reason: SLEEP Last Admin: 08/26/19 22:36 Dose: 6 mg Documented by: Metformin HCl (Glucophage) 1,000 mg PO BIDCM [facility] Last Admin: 08/27/19 09:17 Dose: 1,000 mg Documented by: Metronidazole (Flagyl) 500 mg PO TID [facility] Stop: 08/29/19 22:01 Last Admin: 08/27/19 05:59 Dose: 500 mg Documented by: Nutritional Formula (Aries - Weber Flavor) 1 packet PO BIDCM [facility] Last Admin: 08/27/19 09:17 Dose: 1 packet Documented by: Nutritional Formula (Lactose Free) (Glucerna Shake) 120 ml PO 4X/DAY [facility] Last Admin: 08/27/19 05:59 Dose: 120 ml Documented by: Polyethylene Glycol (Miralax) 17 gm PO DAILY [facility] Last Admin: 08/27/19 06:00 Dose: Not Given Documented by: Senna/Docusate Sodium (Senokot-S, Marla-Colace) 1 tablet PO BID [facility] Last Admin: 08/27/19 05:59 Dose: Not Given Documented by: Tuberculin PPD (Tubersol, Aplisol, Ppd) 5 tu ID [id number] ONE Stop: 08/30/19 10:01 Medical Necessity - Tobacco Use Smoking Status: Former smoker Tobacco Use: Non-smoker Assessment/Plan All Active Problems Debility (Acute) History of transmetatarsal amputation of right foot (Acute) Methicillin resistant Staph aureus culture positive (Acute) H/O alcohol abuse (Acute) H/O drug abuse (Acute) Diabetic foot infection (Acute) Cellulitis (Acute) Preop cardiovascular exam (Acute) Troponin I above reference range (Acute) Stroke (Acute) S/P transmetatarsal amputation with open gastrocnemius recession for treatment of osteomyelitis third metatarsal head and proximal phalanx base, chronic forefoot deformities, chronic ulcer, and gastrocnemius equinus performed by Dr. Medrano Diabetes w/ peripheral neuropathy (hemoglobin A1C 7.4%) History of alcohol and drug abuse Liver cirrhosis history of hepatitis C MRSA positive Patient was seen resting in a chair by his bed early this afternoon. He is c urrently comfortable and his pain is well controlled. His vital signs are all currently stable. His dressing was taken down and each surgical site was carefully inspected. All sutures remain well intact and the skin edges remain well coapted with no gapping or any signs of local infection to the areas. A new dressing consisting of Betadine, gauze, Kerlix, abdominal pads, cast padding, well-padded posterior splint and Julián wrap was applied. Patient to continue with strict nonweightbearing to the right side to optimize healing. He is to continue with nutritional supplementation proper glycemic control to optimize healing. To continue incentive spirometer use. Diabetes and medical management per medicine team appreciated. Podiatry will continue to follow while in house on a weekly basis.
[2019-08-27 16:00] VITALS: BP 130/72; PULSE 86; RESP 18; TEMP 36.8; O2SAT 97
[2019-08-27 16:51] LABS: Bedside Glucose 188 mg/dL (70-110)
[2019-08-27 21:06] LABS: Bedside Glucose 138 mg/dL (70-110)
[2019-08-27] MEDS: Atorvastatin Calcium 10 MG Tablet 5 MG PO (21:52)
[2019-08-27] MEDS: MELATONIN 3 MG TABLET 6 MG PO (22:22)
[2019-08-28] MEDS: levoFLOXacin 750 MG Tablet PO (06:39)
[2019-08-28] MEDS: metroNIDAZOLE 500 MG Tablet PO ×3 (06:39→21:56)
[2019-08-28] MEDS: Carvedilol 3.125 MG TABLET PO ×2 (06:39→17:49)
[2019-08-28] MEDS: Acetaminophen 500 MG Tablet 1000 MG PO ×3 (06:40→21:55)
[2019-08-28] MEDS: Glucerna Shake 120 ML LIQUID PO ×4 (06:40→21:50)
[2019-08-28] MEDS: Enoxaparin 40 MG/0.4 ML Syringe SC (06:43)
[2019-08-28 06:51] LABS: Bedside Glucose 123 mg/dL (70-110)
[2019-08-28] MEDS: metFORMIN HCl 1,000 MG Tablet 1000 MG PO ×2 (08:09→17:48)
[2019-08-28] MEDS: Aspirin E.C. 81 MG Tablet PO (08:09)
[2019-08-28] MEDS: Gabapentin 300 MG Capsule PO ×3 (08:10→17:48)
[2019-08-28] MEDS: Insulin Lispro 100 UNIT/ML INSULN.PEN 8 UNIT SC ×3 (08:10→17:46)
[2019-08-28 10:56] LABS: Bedside Glucose 115 mg/dL (70-110)
--- NOTE | 2019-08-28 13:58 | CASEMGMT ---
Social Work IDT met with patient and for care plan meeting. Discussed patient's progress in therapy. Pt is NWB to RLE. House is not accessible for w/c so therapy is working with FWW with a right knee support attachment. Pt walking with FWW 50 ft at SBA, SBA for all ADLS, transfers. Therapy will start working on steps once brings in crutches. When pt and feel comfortable to DC home, SW can assist. Explained Medicare benefit. Will continue to follow. ANABELL BookerW
[2019-08-28 16:00] VITALS: BP 134/79; PULSE 93; RESP 18; TEMP 36.3; O2SAT 95
[2019-08-28 16:50] LABS: Bedside Glucose 179 mg/dL (70-110)
[2019-08-28] MEDS: Nystatin Powder 15gm Bottle 1 APPLIC TOPICAL (21:52)
[2019-08-28] MEDS: MELATONIN 3 MG TABLET 6 MG PO (21:55)
[2019-08-28] MEDS: Atorvastatin Calcium 10 MG Tablet 5 MG PO (21:55)
[2019-08-28 22:16] LABS: Bedside Glucose 183 mg/dL (70-110)
[2019-08-29] MEDS: Glucerna Shake 120 ML LIQUID PO ×4 (05:33→22:05)
[2019-08-29] MEDS: levoFLOXacin 750 MG Tablet PO (05:34)
[2019-08-29] MEDS: metroNIDAZOLE 500 MG Tablet PO ×3 (05:34→21:55)
[2019-08-29] MEDS: Acetaminophen 500 MG Tablet 1000 MG PO ×3 (05:34→21:52)
[2019-08-29] MEDS: Carvedilol 3.125 MG TABLET PO ×2 (05:34→17:42)
[2019-08-29] MEDS: Enoxaparin 40 MG/0.4 ML Syringe SC (05:35)
[2019-08-29] MEDS: Nystatin Powder 15gm Bottle 1 APPLIC TOPICAL ×2 (05:38→21:57)
[2019-08-29 06:31] LABS: Bedside Glucose 170 mg/dL (70-110)
[2019-08-29] MEDS: Aspirin E.C. 81 MG Tablet PO (07:56)
[2019-08-29] MEDS: metFORMIN HCl 1,000 MG Tablet 1000 MG PO ×2 (07:56→17:42)
[2019-08-29] MEDS: Gabapentin 300 MG Capsule PO ×3 (07:56→17:42)
[2019-08-29] MEDS: Insulin Lispro 100 UNIT/ML INSULN.PEN 8 UNIT SC ×3 (07:57→17:42)
[2019-08-29 10:55] LABS: Bedside Glucose 178 mg/dL (70-110)
[2019-08-29 14:30] VITALS: BP 137/78; PULSE 90; RESP 18; TEMP 36.7; O2SAT 96
[2019-08-29 14:41] LABS: Bedside Glucose 171 mg/dL (70-110)
--- NOTE | 2019-08-29 15:00 | NURSING ---
PT STATED TO THIS NURSE THAT HE FELT ACHY FROM LEGS DOWN AND PT WAS CLAMMY. VITALS AND BLOOD SUGAR DONE. SCHEDULED TYLENOL GIVEN. REPORTED TO TAMMIE LOZOYA
[2019-08-29 15:49] VITALS: BP 125/70; PULSE 80; RESP 18; TEMP 37; O2SAT 96
[2019-08-29 16:56] LABS: Bedside Glucose 168 mg/dL (70-110)
--- NOTE | 2019-08-29 18:22 | NURSING ---
paged DR Hernandez to get order for shower, new order for showering as long as foot drsg stays dry, bag it.
[2019-08-29 20:56] LABS: Bedside Glucose 179 mg/dL (70-110)
[2019-08-29] MEDS: Atorvastatin Calcium 10 MG Tablet 5 MG PO (21:54)
[2019-08-29] MEDS: MELATONIN 3 MG TABLET 6 MG PO (22:12)
[2019-08-29 22:33] VITALS: BP 136/82; PULSE 79; RESP 16; TEMP 36.6; O2SAT 97
[2019-08-30] MEDS: Enoxaparin 40 MG/0.4 ML Syringe SC (06:23)
[2019-08-30] MEDS: Acetaminophen 500 MG Tablet 1000 MG PO ×3 (06:24→20:13)
[2019-08-30] MEDS: levoFLOXacin 750 MG Tablet PO (06:24)
[2019-08-30] MEDS: Carvedilol 3.125 MG TABLET PO ×2 (06:24→17:40)
[2019-08-30] MEDS: Glucerna Shake 120 ML LIQUID PO ×4 (06:30→20:12)
[2019-08-30 06:31] LABS: Bedside Glucose 118 mg/dL (70-110)
[2019-08-30] MEDS: Nystatin Powder 15gm Bottle 1 APPLIC TOPICAL ×2 (06:32→20:24)
[2019-08-30 07:27] LABS: Absolute Lymphocyte Count 0.94 X10^3/uL (0.83-4.51); Absolute Neutrophil Count 3.1 X10^3/uL (2.0-7.7); Basophil# 0.05 X10^3/uL; Basophil% 1.1 % (0-1); Eosinophil# 0.13 X10^3/uL; Eosinophils% 2.8 % (0-5); Lymphocyte # 0.94 X10^3/ul (4.0); Mean Corp Hgb Conc 31.7 g/dL (32-36); Mean Corpuscular Hgb 28.4 pg (27.0-32.0); Mean Corpuscular Volume 89.7 fL (80-94); Mean Platelet Vol. 9.8 fl (6.2-12.0); Monocyte# 0.38 X10^3/uL; Monocyte% 8.1 % (0-10); NRBC Flagged by Analyzer 0 % (0-5); Neutrophil # 3.13 X10^3/uL (2.7-7.7); Neutrophil % 66.3 % (47-70); Platelet Count 146 K/mm3 (150-450); RBC Distribution Width CV 13.5 % (11.6-14.6); RBC Distribution Width SD 43.9 fl (35.1-43.9); Red Blood Count 4.57 M/mm3 (4.6-6.2); White Blood Count 4.7 K/mm3 (4.4-11.0)
[2019-08-30 08:20] LABS: Anion Gap 5 (5-15); BUN 26 mg/dL (7-18); BUN/Creat Ratio 28.7 RATIO (10-20); Calcium,Total 9.4 mg/dL (8.5-10.1); Chloride 105 mmol/L (98-107); Creatinine, Serum 0.91 mg/dL (0.70-1.30); EST Glomerular Filtration Rate 89 mL/min (>60); Est Glom Filt Rate - Afr Amer 108 mL/min (>60); Estimated Creatinine Clearance 92.68 ml/min; Glucose 136 mg/dL (74-106); Potassium 4.4 mmol/L (3.5-5.1); Sodium Level 140 mmol/L (136-145)
[2019-08-30] MEDS: Aspirin E.C. 81 MG Tablet PO (08:44)
[2019-08-30] MEDS: Insulin Lispro 100 UNIT/ML INSULN.PEN 8 UNIT SC ×3 (08:44→17:42)
[2019-08-30] MEDS: Gabapentin 300 MG Capsule PO ×3 (08:44→17:39)
[2019-08-30] MEDS: metFORMIN HCl 1,000 MG Tablet 1000 MG PO ×2 (08:44→17:40)
[2019-08-30 11:35] LABS: Bedside Glucose 96 mg/dL (70-110)
[2019-08-30] MEDS: Tuberculin,Purif.prot.deriv. 50 TU/ML Vial 5 ML ID (12:07)
[2019-08-30 12:51] LABS: Bedside Glucose 137 mg/dL (70-110)
[2019-08-30 16:00] VITALS: BP 122/75; PULSE 68; RESP 18; TEMP 37; O2SAT 96
[2019-08-30 16:41] LABS: Bedside Glucose 140 mg/dL (70-110)
[2019-08-30] MEDS: Atorvastatin Calcium 10 MG Tablet 5 MG PO (20:12)
[2019-08-30 20:25] VITALS: PULSE 90; RESP 16
[2019-08-30 20:56] LABS: Bedside Glucose 135 mg/dL (70-110)
[2019-08-30] MEDS: MELATONIN 3 MG TABLET 6 MG PO (22:01)
[2019-08-31] MEDS: Enoxaparin 40 MG/0.4 ML Syringe SC (06:14)
[2019-08-31] MEDS: Carvedilol 3.125 MG TABLET PO ×2 (06:15→17:25)
[2019-08-31] MEDS: Acetaminophen 500 MG Tablet 1000 MG PO ×3 (06:15→21:03)
[2019-08-31] MEDS: Glucerna Shake 120 ML LIQUID PO ×4 (06:18→21:03)
[2019-08-31] MEDS: Nystatin Powder 15gm Bottle 1 APPLIC TOPICAL ×2 (06:23→21:05)
[2019-08-31 06:30] LABS: Bedside Glucose 180 mg/dL (70-110)
[2019-08-31] MEDS: Insulin Lispro 100 UNIT/ML INSULN.PEN 8 UNIT SC ×3 (08:14→18:13)
[2019-08-31] MEDS: metFORMIN HCl 1,000 MG Tablet 1000 MG PO ×2 (08:16→17:24)
[2019-08-31] MEDS: Gabapentin 300 MG Capsule PO ×3 (08:16→17:24)
[2019-08-31] MEDS: Aspirin E.C. 81 MG Tablet PO (08:16)
[2019-08-31 11:01] LABS: Bedside Glucose 180 mg/dL (70-110)
[2019-08-31 15:15] VITALS: BP 135/76; PULSE 91; RESP 18; TEMP 37; O2SAT 95
[2019-08-31 17:05] LABS: Bedside Glucose 155 mg/dL (70-110)
[2019-08-31] MEDS: Senna/Docusate Sodium 1 Tablet PO (17:23)
[2019-08-31] MEDS: Atorvastatin Calcium 10 MG Tablet 5 MG PO (21:03)
[2019-08-31] MEDS: MELATONIN 3 MG TABLET 6 MG PO (21:20)
[2019-08-31 21:21] LABS: Bedside Glucose 169 mg/dL (70-110)
[2019-08-31 21:24] VITALS: RESP 16; O2SAT 97
--- NOTE | 2019-08-31 23:18 | NURSING ---
Pt remains in contact isolation during shift d/t MRSA in wound. All care provided in room.
[2019-09-01 06:36] LABS: Bedside Glucose 128 mg/dL (70-110)
[2019-09-01] MEDS: Enoxaparin 40 MG/0.4 ML Syringe SC (06:37)
[2019-09-01] MEDS: Glucerna Shake 120 ML LIQUID PO ×4 (06:38→21:44)
[2019-09-01] MEDS: Carvedilol 3.125 MG TABLET PO ×2 (06:38→17:44)
[2019-09-01] MEDS: Acetaminophen 500 MG Tablet 1000 MG PO ×3 (06:38→21:45)
[2019-09-01] MEDS: Nystatin Powder 15gm Bottle 1 APPLIC TOPICAL ×2 (06:42→21:49)
[2019-09-01] MEDS: Gabapentin 300 MG Capsule PO ×3 (08:07→17:44)
[2019-09-01] MEDS: metFORMIN HCl 1,000 MG Tablet 1000 MG PO ×2 (08:07→17:43)
[2019-09-01] MEDS: Aspirin E.C. 81 MG Tablet PO (08:07)
[2019-09-01] MEDS: Insulin Lispro 100 UNIT/ML INSULN.PEN 8 UNIT SC ×3 (08:08→17:45)
[2019-09-01 09:30] VITALS: PULSE 81; RESP 18; O2SAT 94
--- NOTE | 2019-09-01 09:38 | NURSING ---
TB TEST POSITIVE TO LEFT ARM. REPORTED TO TAMMIE MAZARIEGOS
[2019-09-01 10:55] LABS: Bedside Glucose 306 mg/dL (70-110)
[2019-09-01 15:40] VITALS: BP 161/87; PULSE 85; RESP 16; TEMP 36.9; O2SAT 98
[2019-09-01 16:45] LABS: Bedside Glucose 167 mg/dL (70-110)
[2019-09-01] MEDS: Senna/Docusate Sodium 1 Tablet PO (17:44)
--- NOTE | 2019-09-01 18:30 | RAD_ITS ---
STUDY: X-RAY CHEST REASON FOR EXAM: Male, 64 years old. Positive TB test, shortness of breath TECHNIQUE: Frontal and lateral views COMPARISON: May 03, 2017 FINDINGS: The lungs are clear and expanded. There is no demonstrated pleural abnormality. Normal size heart. Normal mediastinum and brie. Normal visualized pulmonary arteries. Normal visualized aortic arch and descending thoracic aorta. Degenerative changes of the thoracic spine. Old left rib fractures. There is no demonstrated abnormality of the visualized soft tissue structures of the upper abdomen. RAD/Chest PA and Lateral IMPRESSION: No acute pulmonary pathology of the chest. Electronically Signed: Preet Holland DO at 19:24 EST Tel [phone], Service support ,
[2019-09-01 21:10] LABS: Bedside Glucose 150 mg/dL (70-110)
[2019-09-01] MEDS: Atorvastatin Calcium 10 MG Tablet 5 MG PO (21:47)
[2019-09-01] MEDS: MELATONIN 3 MG TABLET 6 MG PO (21:47)
[2019-09-02 06:30] LABS: Bedside Glucose 110 mg/dL (70-110)
[2019-09-02] MEDS: Glucerna Shake 120 ML LIQUID PO ×4 (06:31→20:35)
[2019-09-02] MEDS: Enoxaparin 40 MG/0.4 ML Syringe SC (06:32)
[2019-09-02] MEDS: Acetaminophen 500 MG Tablet 1000 MG PO ×3 (06:33→20:34)
[2019-09-02] MEDS: Carvedilol 3.125 MG TABLET PO ×2 (06:33→17:13)
[2019-09-02] MEDS: Senna/Docusate Sodium 1 Tablet PO (06:34)
[2019-09-02] MEDS: Nystatin Powder 15gm Bottle 1 APPLIC TOPICAL ×2 (06:36→20:37)
--- NOTE | 2019-09-02 07:15 | MDS.RN ---
Information for the mds was obtained from review of the clinical record, interview of resident, staff and direct observation of resident's care.
[2019-09-02] MEDS: Insulin Lispro 100 UNIT/ML INSULN.PEN 8 UNIT SC ×3 (08:02→17:18)
[2019-09-02] MEDS: Aspirin E.C. 81 MG Tablet PO (08:03)
[2019-09-02] MEDS: metFORMIN HCl 1,000 MG Tablet 1000 MG PO ×2 (08:03→17:13)
[2019-09-02] MEDS: Gabapentin 300 MG Capsule PO ×3 (08:03→17:13)
[2019-09-02 08:35] VITALS: PULSE 91; RESP 16; O2SAT 98
[2019-09-02 11:11] LABS: Bedside Glucose 188 mg/dL (70-110)
[2019-09-02 15:58] VITALS: BP 141/79; PULSE 86; RESP 18; TEMP 37.2; O2SAT 97
[2019-09-02 16:45] LABS: Bedside Glucose 126 mg/dL (70-110)
--- NOTE | 2019-09-02 18:05 | NURSING ---
requesting COBY on thanksgiving for family. new order obtained from DR Valentin
--- NOTE | 2019-09-02 19:54 | PN_ITS ---
Patient Problems: Active and Suspected Problems Debility (Acute) History of transmetatarsal amputation of right foot (Acute) Methicillin resistant Staph aureus culture positive (Acute) Subjective: Patient was seen this evening for follow up on TMA right foot. He is doing well, no new complaints. No complaints of fever, chills, nausea or vomiting. His with with him in his room. - Physical Exam Vitals/I&O's: Vital Signs Temp Pulse Resp BP Pulse Ox 99 F 86 18 141/79 H 97 09/02/19 15:58 09/02/19 15:58 09/02/19 15:58 09/02/19 15:58 09/02/19 15:58 Oxygen Delivery Method Room Air Weight: 101.378 kg Body Mass Index (BMI) 29.0 Finger Stick Blood Glucose 151 Intake and Output for Last 24 Hours 08/31/19 09/01/19 09/02/19 23:59 23:59 23:59 Intake Total 660 / 660 1230 / 1230 1590 / 1590 Balance 660 / 660 1230 / 1230 1590 / 1590 General: Alert, Oriented x3, Cooperative, No apparent distress Extremities: No Calf Tenderness, - - s/p TMA and gastroc recession right lower extremity - incision sites well coapted with intact sutures, no gapping, no dehiscence, no evidence of complication - healing very well, no cellulitis, no necrosis, no fluctuance, no evidence of residual infection. No evidence of DVT to lower extremity. No POP or pain on ROM to the foot/ankle. Laboratory Results 09/01/19 21:06: POC Glucose 150 H 09/02/19 06:19: POC Glucose 110 09/02/19 11:01: POC Glucose 188 H 09/02/19 16:43: POC Glucose 126 H Current Medications Acetaminophen (Tylenol) 1,000 mg PO Q8 [facility] Last Admin: 09/02/19 13:14 Dose: 1,000 mg Documented by: Albuterol Sulfate (Ventolin Aerosols) 2.5 mg INHALATION Q2H PRN PRN PRN Reason: Shortness of Breath/Wheezing Aspirin (Ecotrin) 81 mg PO DAILYCM [facility] Last Admin: 09/02/19 08:03 Dose: 81 mg Documented by: Atorvastatin Calcium (Lipitor) 5 mg PO QHS [facility] Last Admin: 09/01/19 21:47 Dose: 5 mg Documented by: Bisacodyl (Dulcolax) 10 mg PO DAILY PRN PRN Reason: Constipation Carvedilol (Coreg) 3.125 mg PO BID [facility] Last Admin: 09/02/19 17:13 Dose: 3.125 mg Documented by: Cholecalciferol (Vitamin D) 2,000 unit PO DAILY [facility] Last Admin: 09/02/19 06:33 Dose: 2,000 unit Documented by: Dextrose (D50w Syringe) 0 gm IV X1 PRN; Protocol PRN Reason: Hypoglycemia Emollient Ointment (Eucerin Intensive Repair) 1 applic TOPICAL 0600,2200 [facility]; Protocol Last Admin: 09/02/19 06:36 Dose: 1 applicatio Documented by: Enoxaparin Sodium (Lovenox) 40 mg SC DAILY@0600 [facility] Last Admin: 09/02/19 06:32 Dose: 40 mg Documented by: Gabapentin (Neurontin) 300 mg PO TIDCM [facility] Last Admin: 09/02/19 17:13 Dose: 300 mg Documented by: Glucagon () 1 mg IM .X1 PRN PRN Reason: Hypoglycemia Ibuprofen (Motrin) 400 mg PO Q4H PRN PRN PRN Reason: Pain Score 6-10/10 Insulin Glargine (Lantus (Bkc)) 24 units SC QHS [facility] Last Admin: 09/01/19 21:57 Dose: 24 units Documented by: Insulin Human Lispro (Humalog Kwikpen (Bkc)) 8 unit SC TIDAC [facility] Last Admin: 09/02/19 17:18 Dose: 8 u Documented by: Melatonin (Melatonin) 6 mg PO QHS PRN PRN Reason: SLEEP Last Admin: 09/01/19 21:47 Dose: 6 mg Documented by: Metformin HCl (Glucophage) 1,000 mg PO BIDCM [facility] Last Admin: 09/02/19 17:13 Dose: 1,000 mg Documented by: Nutritional Formula (Aries - Troup Flavor) 1 packet PO BIDCM [facility] Last Admin: 09/02/19 17:13 Dose: 1 packet Documented by: Nutritional Formula (Lactose Free) (Glucerna Shake) 120 ml PO 4X/DAY [facility] Last Admin: 09/02/19 17:16 Dose: 120 ml Documented by: Nystatin (Mycostatin Powder) 1 applic TOPICAL 0600,2200 [facility]; Protocol Last Admin: 09/02/19 06:36 Dose: 1 applicatio Documented by: Polyethylene Glycol (Miralax) 17 gm PO DAILY [facility] Last Admin: 09/02/19 06:33 Dose: Not Given Documented by: Senna/Docusate Sodium (Senokot-S, Marla-Colace) 1 tablet PO BID [facility] Last Admin: 09/02/19 17:12 Dose: Not Given Documented by: Medical Necessity - Tobacco Use Smoking Status: Former smoker Tobacco Use: Non-smoker Assessment/Plan All Active Problems Debility (Acute) History of transmetatarsal amputation of right foot (Acute) Methicillin resistant Staph aureus culture positive (Acute) H/O alcohol abuse (Acute) H/O drug abuse (Acute) Diabetic foot infection (Acute) Cellulitis (Acute) Preop cardiovascular exam (Acute) Troponin I above reference range (Acute) Stroke (Acute) S/P transmetatarsal amputation with open gastrocnemius recession for treatment of osteomyelitis third metatarsal head and proximal phalanx base, chronic forefoot deformities, chronic ulcer, and gastrocnemius equinus performed by Dr. Medrano Diabetes w/ peripheral neuropathy (hemoglobin A1C 7.4%) History of alcohol and drug abuse Liver cirrhosis history of hepatitis C MRSA positive Surgical sites healing well, no evidence of complication. All sutures remain well intact and the skin edges remain well coapted with no gapping or any signs of local infection to the areas. A new dressing consisting of Betadine, gauze, Kerlix, abdominal pads, and a well-padded posterior splint and Julián wrap was appl ied. Patient to continue with strict nonweightbearing to the right side to optimize healing. He is to continue with nutritional supplementation proper glycemic control to optimize healing. To continue incentive spirometer use. Diabetes and medical management per medicine team appreciated. Podiatry will continue to follow while in house on a weekly basis.
[2019-09-02] MEDS: Atorvastatin Calcium 10 MG Tablet 5 MG PO (20:34)
--- NOTE | 2019-09-02 20:46 | DCINST_ITS ---
- Discharge Diagnoses Current Active Problems: Current Active and Chronic Problems Debility (Acute) Diabetic foot ulcer (Chronic) History of transmetatarsal amputation of right foot (Acute) Hepatitis C (Chronic) Insomnia (Chronic) Vitamin D deficiency (Chronic) Pruritus (Chronic) Diabetic polyneuropathy (Chronic) Depression (Chronic) Methicillin resistant Staph aureus culture positive (Acute) You will use the following diet at home:: No restrictions, Regular Your food should be the consistency of: Regular Your liquids should be the consistency of: Regular/Thin Discharge Activity: Return to Normal Activity, May Shower, Use Walker, Use Cr utches Weight Bearing Status: No weight bearing - Right lower extremity. Call your doctor if you observe: Fever of 101 or Higher, Inability to urinate, Inability to have a bowel movement, Shortness of breath, Chest pain, Uncontrolled pain Allergies/Adverse Reactions: Allergies morphine Adverse Reaction (Verified 08/18/19 11:57) Gets mean Medications to take at Discharge Aspirin [Aspir-Low] 81 mg PO DAILY 04/30/17 Melatonin 6 mg PO QHS PRN 04/30/17 Atorvastatin Calcium 5 mg PO QHS 08/18/19 Carvedilol 3.125 mg PO BID 08/18/19 Cholecalciferol (Vitamin D3) [Vitamin D3] 2,000 unit PO DAILY 08/18/19 Gabapentin [Neurontin] 300 mg PO TID 08/18/19 Metformin HCl 1,000 mg PO BID 08/18/19 Acetaminophen [Tylenol] 1,000 mg PO Q8 08/22/19 Ibuprofen [Motrin] 400 mg PO Q4H PRN PRN tab 08/22/19 Emollient Combination No.72 [Eucerin Intensive Repair] 1 applic TOPICAL 0600,2200 lotion 09/02/19 Insulin Glargine [Lantus SoloStar Pen] 24 units SUBCUT QHS #1 pen 09/02/19 Insulin Lispro [Humalog KwikPen] 8 unit SUBCUT TIDAC #1 insuln.pen 09/02/19 Nutritional Supplement [Aries - ORANGE FLAVOR] 1 packet PO BIDCM #60 packet 09/02/19 Nystatin Powder [Mycostatin Powder] 1 applic TOPICAL 0600,2200 bottle 09/02/19 The following prescriptions were given: Insulin Lispro [Humalog KwikPen] 8 unit SUBCUT TIDAC #1 insuln.pen Prescription Printed Nutritional Supplement [Aries - ORANGE FLAVOR] 1 packet PO BIDCM #60 packet Prescription Printed Insulin Glargine [Lantus SoloStar Pen] 24 units SUBCUT QHS #1 pen Prescription Printed Primary Care Physician: [facility] [Primary Care Provider] - Please follow up with your Primary Care Physician in: 1 week. Test Results: Test results from this visit will be discussed in further detail at your follow- up appointment, if applicable. Please Follow Up With: Leanne Medrano DPM When: next week Please Follow Up With: [facility] Proposed Discharge Date: 09/11/19
--- NOTE | 2019-09-02 20:47 | PCM.DC.SUM ---
Discharge Date and Diagnosis - Problem List Patient Problems: Active and Suspected Problems Debility (Acute) History of transmetatarsal amputation of right foot (Acute) Methicillin resistant Staph aureus culture positive (Acute) Date of Admission: 08/23/19 Date of Discharge: 09/11/19 - Primary Discharge Diagnosis Active and Suspected Problems Debility (Acute) History of transmetatarsal amputation of right foot (Acute) Methicillin resistant Staph aureus culture positive (Acute) - Secondary Discharge Diagnosis Chronic Problems Type 2 diabetes mellitus with diabetic polyneuropathy (Chronic) Diabetic foot ulcer (Chronic) Hepatitis C (Chronic) Insomnia (Chronic) Vitamin D deficiency (Chronic) Pruritus (Chronic) Diabetic polyneuropathy (Chronic) Depression (Chronic) Delayed wound healing (Chronic) 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) Osteomyelitis of right foot (Chronic) Hammer toe of right foot (Chronic) Hypertension (Chronic) Hyperlipidemia (Chronic) Anxiety (Chronic) Diabetes (Chronic) Hospital Course and Treatment Imaging Results: 08/22/19 19:23 Diet: Calorie Controlled Diet Comments: Cardiac/Low Cholesterol How many daily calories?: 1800 calorie Clinical Impression(s) from Imaging Studies Chest X-Ray 09/01/19 18:30 IMPRESSION: No acute pulmonary pathology of the chest. Electronically Signed: Preet Holland DO at 19:24 EST Tel [phone], Service support , Labs (Last 48 Hours) 08/31/19 09/01/19 09/01/19 21:13 06:26 10:45 TB Test (QFT) Nil TB Test (QFT) Mitogen TB Test (QFT) Ag 1 TB Test (QFT) Ag 2 TB Test (QFT) TB Positive Criteria POC Glucose 169 H 128 H 306 H 09/01/19 09/01/19 09/01/19 16:39 18:00 21:06 TB Test (QFT) Nil Pending TB Test (QFT) Mitogen Pending TB Test (QFT) Ag 1 Pending TB Test (QFT) Ag 2 Pending TB Test (QFT) Pending TB Positive Criteria Pending POC Glucose 167 H 150 H 09/02/19 09/02/19 09/02/19 06:19 11:01 16:43 TB Test (QFT) Nil TB Test (QFT) Mitogen TB Test (QFT) Ag 1 TB Test (QFT) Ag 2 TB Test (QFT) TB Positive Criteria POC Glucose 110 188 H 126 H Operations: None, - - s/p right TMA (08/19/19) Procedures: None Summary of Care Provided: The patient is a 64 year old Male with below past medical history hospitalized for infected right diabetic foot ulcer/osteomyelitis, underwent right transmetatarsal amputation, open gastrocnemius recession right lower extremity 08/19/[address] Medrano, complicated by MRSA, admitted to TCU with debility, here for rehabilitation, strengthening, wound care, prior to discharge home with . Discharge home with . Patient Problems: Active and Suspected Problems Debility (Acute) History of transmetatarsal amputation of right foot (Acute) Methicillin resistant Staph aureus culture positive (Acute) - Physical Exam Vitals/I&O's: Vital Signs Temp Pulse Resp BP Pulse Ox 99 F 86 18 141/79 H 97 09/02/19 15:58 09/02/19 15:58 09/02/19 15:58 09/02/19 15:58 09/02/19 15:58 Oxygen Delivery Method Room Air Weight: 101.378 kg Body Mass Index (BMI) 29.0 Finger Stick Blood Glucose 151 Intake and Output for Last 24 Hours 08/31/19 09/01/19 09/02/19 23:59 23:59 23:59 Intake Total 660 / 660 1230 / 1230 1590 / 1590 Balance 660 / 660 1230 / 1230 1590 / 1590 Laboratory Results 09/01/19 21:06: POC Glucose 150 H 09/02/19 06:19: POC Glucose 110 09/02/19 11:01: POC Glucose 188 H 09/02/19 16:43: POC Glucose 126 H Current Medications Acetaminophen (Tylenol) 1,000 mg PO Q8 [facility] Last Admin: 09/02/19 20:34 Dose: 1,000 mg Documented by: Albuterol Sulfate (Ventolin Aerosols) 2.5 mg INHALATION Q2H PRN PRN PRN Reason: Shortness of Breath/Wheezing Aspirin (Ecotrin) 81 mg PO DAILYCM [facility] Last Admin: 09/02/19 08:03 Dose: 81 mg Documented by: Atorvastatin Calcium (Lipitor) 5 mg PO QHS [facility] Last Admin: 09/02/19 20:34 Dose: 5 mg Documented by: Bisacodyl (Dulcolax) 10 mg PO DAILY PRN PRN Reason: Constipation Carvedilol (Coreg) 3.125 mg PO BID [facility] Last Admin: 09/02/19 17:13 Dose: 3.125 mg Documented by: Cholecalciferol (Vitamin D) 2,000 unit PO DAILY [facility] Last Admin: 09/02/19 06:33 Dose: 2,000 unit Documented by: Dextrose (D50w Syringe) 0 gm IV X1 PRN; Protocol PRN Reason: Hypoglycemia Emollient Ointment (Eucerin Intensive Repair) 1 applic TOPICAL 0600,2200 [facility]; Protocol Last Admin: 09/02/19 20:42 Dose: 1 applicatio Documented by: Enoxaparin Sodium (Lovenox) 40 mg SC DAILY@0600 [facility] Last Admin: 09/02/19 06:32 Dose: 40 mg Documented by: Gabapentin (Neurontin) [facility] [place] Last Admin: 09/02/19 17:13 Dose: 300 mg Documented by: Glucagon () 1 mg IM .X1 PRN PRN Reason: Hypoglycemia Ibuprofen (Motrin) 400 mg PO Q4H PRN PRN PRN Reason: Pain Score 6-10/10 Insulin Glargine (Lantus (Bk)) 24 units SC QHS [facility] Last Admin: 09/01/19 21:57 Dose: 24 units Documented by: Insulin Human Lispro (Humalog Kwikpen (Bk)) 8 unit SC TIDAC [facility] Last Admin: 09/02/19 17:18 Dose: 8 u Documented by: Melatonin (Melatonin) 6 mg PO QHS PRN PRN Reason: SLEEP Last Admin: 09/01/19 21:47 Dose: 6 mg Documented by: Metformin HCl (Glucophage) 1,000 mg PO BIDCM [facility] Last Admin: 09/02/19 17:13 Dose: 1,000 mg Documented by: Nutritional Formula (Aries - Ingham Flavor) 1 packet PO BIDCM [facility] Last Admin: 09/02/19 17:13 Dose: 1 packet Documented by: Nutritional Formula (Lactose Free) (Glucerna Shake) 120 ml PO 4X/DAY [facility] Last Admin: 09/02/19 20:35 Dose: 120 ml Documented by: Nystatin (Mycostatin Powder) 1 applic TOPICAL 0600,2200 [facility]; Protocol Last Admin: 09/02/19 20:37 Dose: 1 applicatio Documented by: Polyethylene Glycol (Miralax) 17 gm PO DAILY [facility] Last Admin: 09/02/19 06:33 Dose: Not Given Documented by: Senna/Docusate Sodium (Senokot-S, Marla-Colace) 1 tablet PO BID [facility] Last Admin: 09/02/19 17:12 Dose: Not Given Documented by: Discharge Diet: No Restrictions Discharge Activity: Return to Normal Activity, May Shower, Use Walker, Use Crutches Weight Bearing Status: No weight bearing - Right lower extremity. Call your doctor if you observe: Fever of 101 or Higher, Inability to urinate, Inability to have a bowel movement, Shortness of breath, Chest pain, Uncontrolled pain Home Medications: Medications to take at Discharge Aspirin [Aspir-Low] 81 mg PO DAILY 04/30/17 Melatonin 6 mg PO QHS PRN 04/30/17 Atorvastatin Calcium 5 mg PO QHS 08/18/19 Carvedilol 3.125 mg PO BID 08/18/19 Cholecalciferol (Vitamin D3) [Vitamin D3] 2,000 unit PO DAILY 08/18/19 Gabapentin [Neurontin] 300 mg PO TID 08/18/19 Metformin HCl 1,000 mg PO BID 08/18/19 Acetaminophen [Tylenol] 1,000 mg PO Q8 08/22/19 Ibuprofen [Motrin] 400 mg PO Q4H PRN PRN tab 08/22/19 Emollient Combination No.72 [Eucerin Intensive Repair] 1 applic TOPICAL 0600,2200 lotion 09/02/19 Insulin Glargine [Lantus SoloStar Pen] 24 units SUBCUT QHS #1 pen 09/02/19 Insulin Lispro [Humalog KwikPen] 8 unit SUBCUT TIDAC #1 insuln.pen 09/02/19 Nutritional Supplement [Aries - ORANGE FLAVOR] 1 packet PO BIDCM #60 packet 09/02/19 Nystatin Powder [Mycostatin Powder] 1 applic TOPICAL 0600,2200 bottle 09/02/19 Following Prescrptions Were Given to Patient: Insulin Lispro [Humalog KwikPen] 8 unit SUBCUT TIDAC #1 insuln.pen Prescription Printed Nutritional Supplement [Arise - ORANGE FLAVOR] 1 packet PO BIDCM #60 packet Prescription Printed Insulin Glargine [Lantus SoloStar Pen] 24 units SUBCUT QHS #1 pen Prescription Printed [facility] - Please follow up with your Primary Care Physician in: 1 week. Please Follow Up With: Leanne Medrano DPM When: next week Please Follow Up With: [facility] Disposition: Home Minutes spent on discharge:: 30 Patient Condition:: Stable Medical Necessity - Tobacco Use Smoking Status: Former smoker Tobacco Use: Non-smoker Meaningful Use Info Meaningful Use Diagnoses (Choose all that apply): None applicable
[2019-09-02 22:05] LABS: Bedside Glucose 183 mg/dL (70-110)
[2019-09-02] MEDS: MELATONIN 3 MG TABLET 6 MG PO (23:19)
[2019-09-03] MEDS: Acetaminophen 500 MG Tablet 1000 MG PO ×3 (05:53→22:12)
[2019-09-03] MEDS: Glucerna Shake 120 ML LIQUID PO ×4 (05:53→22:11)
[2019-09-03] MEDS: Carvedilol 3.125 MG TABLET PO ×2 (05:53→17:10)
[2019-09-03] MEDS: Enoxaparin 40 MG/0.4 ML Syringe SC (05:54)
[2019-09-03] MEDS: Nystatin Powder 15gm Bottle 1 APPLIC TOPICAL (06:01)
[2019-09-03 06:31] LABS: Bedside Glucose 181 mg/dL (70-110)
[2019-09-03] MEDS: Insulin Lispro 100 UNIT/ML INSULN.PEN 8 UNIT SC ×3 (07:57→17:09)
[2019-09-03] MEDS: metFORMIN HCl 1,000 MG Tablet 1000 MG PO ×2 (07:58→17:10)
[2019-09-03] MEDS: Aspirin E.C. 81 MG Tablet PO (07:58)
[2019-09-03] MEDS: Gabapentin 300 MG Capsule PO ×3 (07:58→17:10)
--- NOTE | 2019-09-03 10:51 | CASEMGMT ---
Social Work Spoke with patient about discharge plans. Patient has copays beginning 09/11, and from time of admission, pt stated he cannot afford copays. Discussed with pt DC date 09/11, per pt request, and IDT agreeable as pt is at new baseline and is safe to return home. Pt agreeable to DC - denies HHC or outpatient needs as is at home to assist. Pt will f/u with wound clinic for wound care. Pt requires right knee support FWW attachment - pt states to contact TAMMIE Ruiz at [facility] whom will cover DME needs. NOMNC Issued. Plan: DC home 09/11 with no needs. ANABELL Booker BUSINESS ASSOCIATE
[2019-09-03 11:26] LABS: Bedside Glucose 137 mg/dL (70-110)
[2019-09-03 15:40] VITALS: BP 148/80; PULSE 72; RESP 16; TEMP 36.2; O2SAT 97
[2019-09-03 16:45] LABS: Bedside Glucose 165 mg/dL (70-110)
[2019-09-03 21:40] LABS: Bedside Glucose 117 mg/dL (70-110)
[2019-09-03] MEDS: MELATONIN 3 MG TABLET 6 MG PO (22:12)
[2019-09-03] MEDS: Atorvastatin Calcium 10 MG Tablet 5 MG PO (22:12)
[2019-09-04] MEDS: Enoxaparin 40 MG/0.4 ML Syringe SC (05:45)
[2019-09-04] MEDS: Glucerna Shake 120 ML LIQUID PO ×4 (05:45→22:56)
[2019-09-04] MEDS: Carvedilol 3.125 MG TABLET PO ×2 (05:46→17:33)
[2019-09-04] MEDS: Senna/Docusate Sodium 1 Tablet PO (05:46)
[2019-09-04] MEDS: Acetaminophen 500 MG Tablet 1000 MG PO ×3 (05:46→22:58)
[2019-09-04] MEDS: Nystatin Powder 15gm Bottle 1 APPLIC TOPICAL ×2 (05:49→23:03)
[2019-09-04 06:21] LABS: Bedside Glucose 162 mg/dL (70-110)
[2019-09-04] MEDS: metFORMIN HCl 1,000 MG Tablet 1000 MG PO ×2 (08:14→17:33)
[2019-09-04] MEDS: Aspirin E.C. 81 MG Tablet PO (08:14)
[2019-09-04] MEDS: Gabapentin 300 MG Capsule PO ×3 (08:15→17:33)
[2019-09-04] MEDS: Insulin Lispro 100 UNIT/ML INSULN.PEN 8 UNIT SC ×3 (08:15→17:33)
[2019-09-04 11:15] LABS: Bedside Glucose 177 mg/dL (70-110)
[2019-09-04 16:00] VITALS: BP 137/72; PULSE 88; RESP 16; TEMP 36.9; O2SAT 97
[2019-09-04 16:50] LABS: Bedside Glucose 142 mg/dL (70-110)
--- NOTE | 2019-09-04 22:29 | NURSING ---
2228- pt returned from [facility] in wheelchair with .
[2019-09-04] MEDS: Atorvastatin Calcium 10 MG Tablet 5 MG PO (22:57)
[2019-09-04 23:10] LABS: Bedside Glucose 134 mg/dL (70-110)
[2019-09-04] MEDS: MELATONIN 3 MG TABLET 6 MG PO (23:56)
[2019-09-05] MEDS: Enoxaparin 40 MG/0.4 ML Syringe SC (06:36)
[2019-09-05] MEDS: Acetaminophen 500 MG Tablet 1000 MG PO ×3 (06:36→21:17)
[2019-09-05] MEDS: Glucerna Shake 120 ML LIQUID PO ×4 (06:37→21:20)
[2019-09-05] MEDS: Carvedilol 3.125 MG TABLET PO ×2 (06:37→17:58)
[2019-09-05] MEDS: Senna/Docusate Sodium 1 Tablet PO (06:37)
[2019-09-05] MEDS: Nystatin Powder 15gm Bottle 1 APPLIC TOPICAL ×2 (06:42→21:19)
[2019-09-05 06:45] LABS: Bedside Glucose 189 mg/dL (70-110)
[2019-09-05] MEDS: Gabapentin 300 MG Capsule PO ×3 (08:45→17:58)
[2019-09-05] MEDS: Insulin Lispro 100 UNIT/ML INSULN.PEN 8 UNIT SC ×3 (08:45→17:55)
[2019-09-05] MEDS: Aspirin E.C. 81 MG Tablet PO (08:46)
[2019-09-05] MEDS: metFORMIN HCl 1,000 MG Tablet 1000 MG PO ×2 (08:46→17:58)
[2019-09-05 10:46] LABS: Bedside Glucose 197 mg/dL (70-110)
--- NOTE | 2019-09-05 11:02 | CASEMGMT ---
Social Work Spoke with patient whom inquired about Medicare benefits and discharge date. Explained patient does not have secondary insurance, when the MCR copay days would begin is 09/11. As previously discussed and when NOMNC was issued with pt, pt agreeable and requesting to DC 09/11 as pt is unable to pay copays. Discussed with patient, despite the financial liability, IDT issued DC date 09/11 as pt is at new baseline, has not made significant functional progress, and is medically ready to DC. Pt inquired about secondary insurance. SW explained currently it is open enrollment for insurances and now would be the time to enroll in secondary insurance, if the pt chooses, which could potentially pay for copays in SNFs if needed. Pt indicated understanding of conversation and agreed he was ready to DC home 09/11. Pt appreciative of conversation. Ines Dubose, CIGAR BINDER FISHERIES SPECIALIST
[2019-09-05 16:00] VITALS: BP 123/78; PULSE 90; RESP 18; TEMP 37.1; O2SAT 95
[2019-09-05 17:35] LABS: Bedside Glucose 222 mg/dL (70-110)
[2019-09-05 20:07] LABS: QNTFERON TB Mitogen Value > 10.00 IU/mL (.); QNTFERON TB Nil Value 0.06 IU/mL (.); QNTFERON TB1+ Ag Value 0.05 IU/mL (.); QNTFERON TB2+ Ag Value 0.03 IU/mL (.)
[2019-09-05 20:45] LABS: Bedside Glucose 186 mg/dL (70-110)
[2019-09-05] MEDS: Atorvastatin Calcium 10 MG Tablet 5 MG PO (21:17)
[2019-09-05] MEDS: MELATONIN 3 MG TABLET 6 MG PO (22:58)
[2019-09-06] MEDS: Carvedilol 3.125 MG TABLET PO ×2 (05:47→17:17)
[2019-09-06] MEDS: Glucerna Shake 120 ML LIQUID PO ×4 (05:47→22:50)
[2019-09-06] MEDS: Acetaminophen 500 MG Tablet 1000 MG PO ×2 (05:47→22:48)
[2019-09-06] MEDS: Nystatin Powder 15gm Bottle 1 APPLIC TOPICAL ×2 (05:47→22:50)
[2019-09-06] MEDS: Enoxaparin 40 MG/0.4 ML Syringe SC (05:48)
[2019-09-06 07:25] LABS: Bedside Glucose 210 mg/dL (70-110)
[2019-09-06] MEDS: Insulin Lispro 100 UNIT/ML INSULN.PEN 8 UNIT SC ×3 (08:10→17:15)
[2019-09-06] MEDS: metFORMIN HCl 1,000 MG Tablet 1000 MG PO ×2 (08:11→17:16)
[2019-09-06] MEDS: Gabapentin 300 MG Capsule PO ×3 (08:11→17:15)
[2019-09-06] MEDS: Aspirin E.C. 81 MG Tablet PO (08:11)
[2019-09-06 08:16] LABS: Absolute Lymphocyte Count 0.85 X10^3/uL (0.83-4.51); Absolute Neutrophil Count 3.7 X10^3/uL (2.0-7.7); Basophil# 0.04 X10^3/uL; Basophil% 0.8 % (0-1); Eosinophil# 0.22 X10^3/uL; Eosinophils% 4.2 % (0-5); Hematocrit 41.5 % (40-54); Hemoglobin 13.2 g/dL (13.0-16.5); Lymphocyte # 0.85 X10^3/ul (4.0); Lymphocyte % 16.3 % (19-41); Mean Corp Hgb Conc 31.8 g/dL (32-36); Mean Corpuscular Hgb 29.1 pg (27.0-32.0); Mean Corpuscular Volume 91.4 fL (80-94); Mean Platelet Vol. 9.6 fl (6.2-12.0); Monocyte# 0.37 X10^3/uL; Monocyte% 7.1 % (0-10); NRBC Flagged by Analyzer 0 % (0-5); Neutrophil # 3.69 X10^3/uL (2.7-7.7); Neutrophil % 70.6 % (47-70); Platelet Count 133 K/mm3 (150-450); RBC Distribution Width CV 13.8 % (11.6-14.6); RBC Distribution Width SD 46.3 fl (35.1-43.9); Red Blood Count 4.54 M/mm3 (4.6-6.2); White Blood Count 5.2 K/mm3 (4.4-11.0)
[2019-09-06 08:33] LABS: Anion Gap 6 (5-15); BUN 30 mg/dL (7-18); BUN/Creat Ratio 32.9 RATIO (10-20); Calcium,Total 9.2 mg/dL (8.5-10.1); Chloride 100 mmol/L (98-107); Creatinine, Serum 0.91 mg/dL (0.70-1.30); EST Glomerular Filtration Rate 89 mL/min (>60); Est Glom Filt Rate - Afr Amer 107 mL/min (>60); Estimated Creatinine Clearance 92.68 ml/min; Glucose 192 mg/dL (74-106); Potassium 4.2 mmol/L (3.5-5.1); Sodium Level 135 mmol/L (136-145)
[2019-09-06 11:15] LABS: Bedside Glucose 187 mg/dL (70-110)
[2019-09-06 13:33] LABS: QNTIFERON TB Positive Criteria Negative (Negative)
[2019-09-06 15:51] VITALS: BP 152/90; PULSE 95; RESP 18; TEMP 37; O2SAT 96
[2019-09-06 17:05] LABS: Bedside Glucose 175 mg/dL (70-110)
[2019-09-06 22:46] LABS: Bedside Glucose 140 mg/dL (70-110)
[2019-09-06] MEDS: Atorvastatin Calcium 10 MG Tablet 5 MG PO (22:48)
[2019-09-06] MEDS: MELATONIN 3 MG TABLET 6 MG PO (22:52)
[2019-09-07] MEDS: Glucerna Shake 120 ML LIQUID PO ×4 (05:41→21:10)
[2019-09-07] MEDS: Carvedilol 3.125 MG TABLET PO ×2 (05:41→17:23)
[2019-09-07] MEDS: Acetaminophen 500 MG Tablet 1000 MG PO ×3 (05:41→21:10)
[2019-09-07] MEDS: Enoxaparin 40 MG/0.4 ML Syringe SC (05:45)
[2019-09-07] MEDS: Nystatin Powder 15gm Bottle 1 APPLIC TOPICAL ×2 (05:46→21:12)
[2019-09-07 06:31] LABS: Bedside Glucose 167 mg/dL (70-110)
[2019-09-07] MEDS: Insulin Lispro 100 UNIT/ML INSULN.PEN 8 UNIT SC ×3 (07:56→17:28)
[2019-09-07] MEDS: Gabapentin 300 MG Capsule PO ×3 (07:58→17:23)
[2019-09-07] MEDS: metFORMIN HCl 1,000 MG Tablet 1000 MG PO ×2 (07:58→17:23)
[2019-09-07] MEDS: Aspirin E.C. 81 MG Tablet PO (07:58)
[2019-09-07 11:11] LABS: Bedside Glucose 230 mg/dL (70-110)
[2019-09-07 12:40] VITALS: PULSE 89; RESP 18; O2SAT 97
--- NOTE | 2019-09-07 13:22 | NURSING ---
PT STATED TO THIS NURSE THAT HIS LEFT LEG AND KNEE WAS HURTING HIM BAD AND THAT [facility]. PT ALSO STATED THERAPY HAS BEEN HAVING HIM PUT MORE WEIGHT ON LEFT LEG AND I DIDNT HAVE MY BRACE SO I HAD MY BRING IT IN YESTERDAY,[SUNDAY]. ASKED PT HOW OFTEN HE WEARS THE BRACE. PT STATED ALL THE TIME. REPORTED TO TAMMIE LOZOYA
[2019-09-07 15:35] VITALS: BP 124/76; PULSE 94; RESP 16; TEMP 36.8; O2SAT 96
[2019-09-07] MEDS: Ibuprofen 400 MG Tablet PO (15:45)
[2019-09-07 16:46] LABS: Bedside Glucose 190 mg/dL (70-110)
[2019-09-07 21:06] LABS: Bedside Glucose 280 mg/dL (70-110)
[2019-09-07] MEDS: Atorvastatin Calcium 10 MG Tablet 5 MG PO (21:10)
[2019-09-07] MEDS: MELATONIN 3 MG TABLET 6 MG PO (21:15)
--- NOTE | 2019-09-07 21:45 | NURSING ---
Pt informed RN he called appeal line, VM left with SW.
[2019-09-08] MEDS: Acetaminophen 500 MG Tablet 1000 MG PO ×3 (05:52→21:56)
[2019-09-08] MEDS: Carvedilol 3.125 MG TABLET PO ×2 (05:52→17:52)
[2019-09-08] MEDS: Enoxaparin 40 MG/0.4 ML Syringe SC (05:53)
[2019-09-08] MEDS: Nystatin Powder 15gm Bottle 1 APPLIC TOPICAL ×2 (05:53→21:53)
[2019-09-08 06:26] LABS: Bedside Glucose 175 mg/dL (70-110)
[2019-09-08] MEDS: Insulin Lispro 100 UNIT/ML INSULN.PEN 8 UNIT SC ×3 (08:16→17:53)
[2019-09-08] MEDS: metFORMIN HCl 1,000 MG Tablet 1000 MG PO ×2 (08:17→17:52)
[2019-09-08] MEDS: Aspirin E.C. 81 MG Tablet PO (08:17)
[2019-09-08] MEDS: Gabapentin 300 MG Capsule PO ×3 (08:17→17:52)
[2019-09-08] MEDS: Ibuprofen 400 MG Tablet PO (09:57)
[2019-09-08 10:50] LABS: Bedside Glucose 240 mg/dL (70-110)
--- NOTE | 2019-09-08 11:00 | CASEMGMT ---
Social Work Left message with Dalia Ruiz RN to inquire about DME needs. Will await return phone call. ANABELL BookerW
--- NOTE | 2019-09-08 12:08 | CASEMGMT ---
Social Work Received information pt filed appeal with [employer] for Medicare DC date 09/11. [facility] Ines Dubose MSW AIRLINE RESERVATION AGENT
[2019-09-08] MEDS: Glucerna Shake 120 ML LIQUID PO ×2 (12:22→17:51)
[2019-09-08] MEDS: Hydrocortisone 2.5% Crm 1 APPLIC TOPICAL (12:55)
--- NOTE | 2019-09-08 14:37 | NURSING ---
Pt c/o pain in left knee. Stated to this nurse that it started over the weekend. Pt states he thinks he did something to it by putting more weight on it d/t being NWB to right side. Pt is wondering if an x-ray can be done to rule out injury. Reported to [facility]. Also put on Dr Valentin's list for when he comes to the floor after his office hours. Therapy reports difficult transfers.
[2019-09-08 15:38] VITALS: BP 136/86; PULSE 87; RESP 18; TEMP 37; O2SAT 97
[2019-09-08 17:10] LABS: Bedside Glucose 132 mg/dL (70-110)
--- NOTE | 2019-09-08 18:40 | RAD_ITS ---
STUDY: X-RAY - LEFT KNEE REASON FOR EXAM: Male, 64 years old. Pain TECHNIQUE: 3 view(s) of the knee. COMPARISON: None. FINDINGS: Normal visualized distal femur. Normal visualized proximal tibia and fibula. Normal proximal tibiofibular articulation. There is mild degenerative arthrosis of the medial femorotibial compartment. There is moderate degenerative arthrosis of the lateral femorotibial compartment with moderate joint space narrowing. There is mild degenerative arthrosis of the patellofemoral articulation. There is a soft tissue prominence in the suprapatellar region suggesting a small volume joint effusion. The soft tissue structures are unremarkable. RAD/Knee 3 Views IMPRESSION: Tricompartmental degenerative changes most severely affecting the lateral knee compartment. Small suprapatellar effusion. Electronically Signed: Gallo Rosales MD at 23:05 EST , Service support ,
[2019-09-08 21:11] LABS: Bedside Glucose 159 mg/dL (70-110)
[2019-09-08] MEDS: Atorvastatin Calcium 10 MG Tablet 5 MG PO (21:55)
[2019-09-08 22:01] VITALS: PULSE 72; RESP 16; O2SAT 97
[2019-09-08] MEDS: MELATONIN 3 MG TABLET 6 MG PO (23:28)
[2019-09-09] MEDS: Senna/Docusate Sodium 1 Tablet PO (06:20)
[2019-09-09] MEDS: Acetaminophen 500 MG Tablet 1000 MG PO ×3 (06:20→22:40)
[2019-09-09] MEDS: Carvedilol 3.125 MG TABLET PO ×2 (06:20→17:38)
[2019-09-09] MEDS: Enoxaparin 40 MG/0.4 ML Syringe SC (06:22)
[2019-09-09] MEDS: Nystatin Powder 15gm Bottle 1 APPLIC TOPICAL ×2 (06:26→22:40)
[2019-09-09 06:31] LABS: Bedside Glucose 151 mg/dL (70-110)
[2019-09-09] MEDS: metFORMIN HCl 1,000 MG Tablet 1000 MG PO ×2 (08:24→17:37)
[2019-09-09] MEDS: Insulin Lispro 100 UNIT/ML INSULN.PEN 8 UNIT SC ×3 (08:24→17:39)
[2019-09-09] MEDS: Gabapentin 300 MG Capsule PO ×3 (08:29→17:38)
[2019-09-09] MEDS: Aspirin E.C. 81 MG Tablet PO (08:29)
[2019-09-09] MEDS: Glucerna Shake 120 ML LIQUID PO ×4 (08:31→22:39)
[2019-09-09 10:40] VITALS: PULSE 81; RESP 18; O2SAT 96
--- NOTE | 2019-09-09 10:49 | CASEMGMT ---
Addendum entered by Ines Dubose 09/09/19 13:59: Received confirmation of appeal - faxed requested information to [facility]. Notified patient. Will await outcome. Original Note: Social Work Contacted [facility] to f/u on appeal - [facility] states they do not have record of an appeal filed. Pt still has until noon on this date to file appeal. Spoke with pt whom states will call again to appeal. Will continue to follow. ANABELL BookerW
[2019-09-09 11:00] LABS: Bedside Glucose 167 mg/dL (70-110)
--- NOTE | 2019-09-09 11:15 | CASEMGMT ---
Social Work Received return phone call from DC nurse whom stated in order to get [facility] to [facility], [facility] Faxed requested clinical information to nurse. Flex O Writer Operator seam finisher left message with with scheduled appt 09/19 at 3 pm - provided information to pt. ANABELL Booker
[2019-09-09 15:56] VITALS: BP 115/84; PULSE 90; RESP 16; TEMP 37.2; O2SAT 95
[2019-09-09 16:55] LABS: Bedside Glucose 216 mg/dL (70-110)
[2019-09-09 21:40] LABS: Bedside Glucose 230 mg/dL (70-110)
[2019-09-09] MEDS: Atorvastatin Calcium 10 MG Tablet 5 MG PO (22:37)
[2019-09-09] MEDS: MELATONIN 3 MG TABLET 6 MG PO (22:37)
[2019-09-10] MEDS: Enoxaparin 40 MG/0.4 ML Syringe SC (06:19)
[2019-09-10] MEDS: Senna/Docusate Sodium 1 Tablet PO (06:20)
[2019-09-10] MEDS: Acetaminophen 500 MG Tablet 1000 MG PO ×3 (06:20→23:12)
[2019-09-10] MEDS: Carvedilol 3.125 MG TABLET PO ×2 (06:21→17:33)
[2019-09-10] MEDS: Nystatin Powder 15gm Bottle 1 APPLIC TOPICAL ×2 (06:21→23:35)
[2019-09-10 06:30] LABS: Bedside Glucose 212 mg/dL (70-110)
[2019-09-10] MEDS: Insulin Lispro 100 UNIT/ML INSULN.PEN 8 UNIT SC ×3 (08:10→17:31)
[2019-09-10] MEDS: Gabapentin 300 MG Capsule PO ×3 (08:11→17:33)
[2019-09-10] MEDS: Aspirin E.C. 81 MG Tablet PO (08:11)
[2019-09-10] MEDS: metFORMIN HCl 1,000 MG Tablet 1000 MG PO ×2 (08:11→17:32)
[2019-09-10 11:31] LABS: Bedside Glucose 171 mg/dL (70-110)
[2019-09-10] MEDS: Glucerna Shake 120 ML LIQUID PO ×3 (12:04→23:12)
[2019-09-10 15:49] VITALS: BP 138/79; PULSE 91; RESP 18; TEMP 36.7; O2SAT 97
--- NOTE | 2019-09-10 16:09 | CASEMGMT ---
Social Work Royer notified SW and pt, pt lost appeal. Spoke with pt to confirm to DC needs. Explained [facility] and Outpatient therapy. Pt would like [facility]- provided list of agencies and pt chose [facility]. Referral made to [facility] PT/OT/SN. No DME needs. Plan: DC home 09/11 with [facility] PT/OT/SN Ines Dubose, SENIOR ASSISTANT MANAGER MORTGAGE MANAGER
[2019-09-10 16:55] LABS: Bedside Glucose 158 mg/dL (70-110)
--- NOTE | 2019-09-10 18:03 | NURSING ---
AT 1745 pt left the facility with Abrahan Victor to [facility]. Grazyna CHO aware.
--- NOTE | 2019-09-10 18:06 | DCINST_ITS ---
Discharge Diet: No Restrictions Discharge Activity: Return to Normal Activity, May Shower, Use Walker, Use Crutches Weight Bearing Status: No weight bearing - Right lower extremity. Call your doctor if your incision/area has: Continuous Slow Oozing, Sudden Increased Bleeding, Increased Pain/ Swelling, Increased Redness, Foul Smelling Discharge, Swelling at the incision site Call your doctor if you observe: Fever of 101 or Higher, Inability to urinate, Inability to have a bowel movement, Shortness of breath, Chest pain, Uncontrolled pain Cleanse incision/area with: Keep Dressing Clean & Dry - until follow up at [facility] Allergies/Adverse Reactions: Allergies morphine Adverse Reaction (Verified 08/18/19 11:57) Gets mean Medications to take at Discharge Aspirin [Aspir-Low] 81 mg PO DAILY 04/30/17 Melatonin 6 mg PO QHS PRN 04/30/17 Atorvastatin Calcium 5 mg PO QHS 08/18/19 Carvedilol 3.125 mg PO BID 08/18/19 Cholecalciferol (Vitamin D3) [Vitamin D3] 2,000 unit PO DAILY 08/18/19 Gabapentin [Neurontin] 300 mg PO TID 08/18/19 Metformin HCl 1,000 mg PO BID 08/18/19 Acetaminophen [Tylenol] 1,000 mg PO Q8 08/22/19 Ibuprofen [Motrin] 400 mg PO Q4H PRN PRN tab 08/22/19 Emollient Combination No.72 [Eucerin Intensive Repair] 1 applic TOPICAL 0600,2200 lotion 09/02/19 Insulin Glargine [Lantus SoloStar Pen] 24 units SUBCUT QHS #1 pen 09/02/19 Insulin Lispro [Humalog KwikPen] 8 unit SUBCUT TIDAC #1 insuln.pen 09/02/19 Nutritional Supplement [Aries - ORANGE FLAVOR] 1 packet PO BIDCM #60 packet 09/02/19 Nystatin Powder [Mycostatin Powder] 1 applic TOPICAL 0600,2200 bottle 09/02/19 Insulin Glargine [Lantus (BKC)] 24 units SUBCUT QHS #1 pen 09/10/19 Insulin Lispro [Humalog Kwikpen] 8 unit SQ TIDCM #1 pen 09/10/19 Nutritional Supplement [Aries - ORANGE FLAVOR] 1 packet PO BIDCM #60 packet 09/10/19 The following prescriptions were given: Insulin Lispro [Humalog Kwikpen] 8 unit SQ TIDCM #1 pen Prescription Printed Insulin Lispro [Humalog KwikPen] 8 unit SUBCUT TIDAC #1 insuln.pen Prescription Printed Nutritional Supplement [Raies - ORANGE FLAVOR] 1 packet PO BIDCM #60 packet Prescription Printed Nutritional Supplement [Aries - ORANGE FLAVOR] 1 packet PO BIDCM #60 packet Prescription Printed Insulin Glargine [Lantus SoloStar Pen] 24 units SUBCUT QHS #1 pen Prescription Printed Insulin Glargine [Lantus (BKC)] 24 units SUBCUT QHS #1 pen Prescription Printed Primary Care Physician: [facility] [Primary Care Provider] - Please follow up with your Primary Care Physician in: 1 week. Test Results: Test results from this visit will be discussed in further detail at your follow- up appointment, if applicable. Please Follow Up With: Leanne Medrano DPM When: next week at [facility]; call [phone] Please Follow Up With: [facility] When: 1 week Proposed Discharge Date: 09/11/19
--- NOTE | 2019-09-10 18:07 | NURSING ---
DR Medrano paged regarding pt DC home, lost appeal. unable to make it to change drsg, entering orders for tcu nurses to change foot drsg for DC home.
--- NOTE | 2019-09-10 20:10 | HHNOTE_ITS ---
Home Health Note - Plan Overview of reason of hospitalization: The patient is a 64 year old Male with below past medical history hospitalized for infected right diabetic foot ulcer/osteomyelitis, underwent right transmetatarsal amputation, open gastrocnemius recession right lower extremity 08/19/[address] Medrano, complicated by MRSA, admitted to TCU with debility, here for rehabilitation, strengthening, wound care, prior to discharge home with . Discharge home with . Problems: Patient was seen for Debility (Acute) Diabetic foot ulcer (Chronic) History of transmetatarsal amputation of right foot (Acute) Hepatitis C (Chronic) Insomnia (Chronic) Vitamin D deficiency (Chronic) Pruritus (Chronic) Diabetic polyneuropathy (Chronic) Depression (Chronic) Methicillin resistant Staph aureus culture positive (Acute) Complete List of Medical Problems Type 2 diabetes mellitus with diabetic polyneuropathy (Chronic) Debility (Acute) Diabetic foot ulcer (Chronic) History of transmetatarsal amputation of right foot (Acute) Hepatitis C (Chronic) Insomnia (Chronic) Vitamin D deficiency (Chronic) Pruritus (Chronic) Diabetic polyneuropathy (Chronic) Depression (Chronic) Methicillin resistant Staph aureus culture positive (Acute) Delayed wound healing (Chronic) 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) H/O alcohol abuse (Acute) H/O drug abuse (Acute) Osteomyelitis of right foot (Chronic) Hammer toe of right foot (Chronic) Diabetic foot infection (Acute) Cellulitis (Acute) Hypertension (Chronic) Hyperlipidemia (Chronic) Preop cardiovascular exam (Acute) Troponin I above reference range (Acute) Anxiety (Chronic) Stroke (Acute) Diabetes (Chronic) - Requirements and Reasons Disciplines Needed/Ordered: Penitentiary, Physical Therapy Reason for Disciplines: Disease Specific Monitoring/education, Medication Management/Knowledge Deficit, Wound Care, Gait Training, Stair Training, Fall Prevention, Home Safety/Equipment Instruction, Balance and/or Posture Training Related To: Change in Medical Treatment Plan, Limited/Poor Endurance, Shortness of Breath with Activity, Physical Impairments, Unsteady Gait/Balance, Intractable Pain, Fall Risk Patient is unable to leave the home: Without Aid of Supportive Devices (crutches, cane, wheelchair, walker), Without the assistance of another person, Because it is medically contraindicated Medically Contraindicated related to: Weight Bearing Status - Additional Disciplines Additional Disciplines Needed/Ordered: Occupational Therapy
[2019-09-10 21:30] LABS: Bedside Glucose 177 mg/dL (70-110)
[2019-09-10] MEDS: Atorvastatin Calcium 10 MG Tablet 5 MG PO (23:11)
[2019-09-10] MEDS: MELATONIN 3 MG TABLET 6 MG PO (23:32)
[2019-09-11] MEDS: Senna/Docusate Sodium 1 Tablet PO (06:31)
[2019-09-11] MEDS: Polyethylene Glycol 3350 17 GM PACKET PO (06:31)
[2019-09-11] MEDS: Glucerna Shake 120 ML LIQUID PO ×2 (06:31→11:19)
[2019-09-11] MEDS: Acetaminophen 500 MG Tablet 1000 MG PO (06:32)
[2019-09-11] MEDS: Enoxaparin 40 MG/0.4 ML Syringe SC (06:32)
[2019-09-11] MEDS: Carvedilol 3.125 MG TABLET PO (06:42)
[2019-09-11] MEDS: Nystatin Powder 15gm Bottle 1 APPLIC TOPICAL (06:43)
[2019-09-11 07:06] LABS: Bedside Glucose 179 mg/dL (70-110)
[2019-09-11] MEDS: Gabapentin 300 MG Capsule PO ×2 (08:17→11:47)
[2019-09-11] MEDS: metFORMIN HCl 1,000 MG Tablet 1000 MG PO (08:17)
[2019-09-11] MEDS: Insulin Lispro 100 UNIT/ML INSULN.PEN 8 UNIT SC ×2 (08:18→11:46)
[2019-09-11] MEDS: Aspirin E.C. 81 MG Tablet PO (08:18)
[2019-09-11 09:56] VITALS: BP 136/58; PULSE 92; RESP 18; TEMP 36.8; O2SAT 96
[2019-09-11 09:59] VITALS: PULSE 91; RESP 18
[2019-09-11 11:01] LABS: Bedside Glucose 154 mg/dL (70-110)
== END 2019-09-11 13:20 | disposition home health service (06) | DRG 560 ==
PROVIDERS: Podiatrist; Admitting Provider Family Medicine Geriatric Medicine; Referring Provider Family Medicine Geriatric Medicine; Visit Provider Family Medicine Geriatric Medicine
DX: Z47.81 Encounter for orthopedic aftercare following surgical amputation (principal); M86.671 Other chronic osteomyelitis, right ankle and foot; Z23 Encounter for immunization; Z89.431 Acquired absence of right foot; E78.5 Hyperlipidemia, unspecified; E55.9 Vitamin D deficiency, unspecified; I10 Essential (primary) hypertension; E11.42 Type 2 diabetes mellitus with diabetic polyneuropathy; E11.69 Type 2 diabetes mellitus with other specified complication; B95.62 Methicillin resistant Staphylococcus aureus infection as the cause of diseases classified elsewhere; F41.9 Anxiety disorder, unspecified; F32.9 Major depressive disorder, single episode, unspecified; Z87.891 Personal history of nicotine dependence; K74.60 Unspecified cirrhosis of liver; B18.2 Chronic viral hepatitis C
CPT/HCPCS: 36415; 71046; 73562; 80048; 82962; 83036; 85025; 85652; 86140; 86480; 97110; 97116; 97162; 97166; 97530; 97535; 97542; 97802; G0009; 90670

== ENCOUNTER 2020-01-25 13:56 | Emergency (ER) | payer OTHER, MEDICARE, SELFPAY ==
[2019-08-22 19:19] VITALS: BMI 29.0
[2020-01-25 13:58] VITALS: BP 146/81; PULSE 94; RESP 18; TEMP 36.3; O2SAT 96; BMI 30.3
--- NOTE | 2020-01-25 14:19 | EKG12_ITS ---
Test Reason : GENERAL ILLNESS Blood Pressure : / mmHG Vent. Rate : 089 BPM Atrial Rate : 089 BPM P-R Int : 172 ms QRS Dur : 128 ms QT Int : 386 ms P-R-T Axes : 031 -31 023 degrees QTc Int : 469 ms Sinus rhythm with Premature atrial complexes Left axis deviation Right bundle branch block Septal infarct , age undetermined , cannot be excluded Abnormal ECG Confirmed by MIAH RECINOS, SERGIO ([id number]), editor newspaper MARYLOU WILEY ([id number]) on 01/28/2020 9:30:24 AM Referred By: TYREE Confirmed By:SERGIO DOOLEY MD
--- NOTE | 2020-01-25 14:19 | RAD_ITS ---
STUDY: X-RAY CHEST REASON FOR EXAM: Male, 64 years old. LEG SWELLING TECHNIQUE: Single AP portable view of the chest. COMPARISON: September 01, 2019 chest x-ray FINDINGS: 1 markings are relatively stable when compared to prior study. There is no demonstrated pleural abnormality. Normal size heart. Normal mediastinum and brie. Normal visualized pulmonary arteries. Aorta is tortuous. There are diffuse degenerative changes of the visualized thoracic spine. There Is a nonacute left fifth rib fracture. There is no demonstrated abnormality of the visualized soft tissue structures of the upper abdomen. RAD/Chest 1 View (Portable) IMPRESSION: Stable chest no definitive acute focal infiltrate. Electronically Signed: Natalie Michelle MD at 15:35 EDT Tel , Service support ,
[2020-01-25 14:54] LABS: Absolute Lymphocyte Count 0.68 X10^3/uL (0.83-4.51); Absolute Neutrophil Count 2.8 X10^3/uL (2.0-7.7); Basophil# 0.02 X10^3/uL; Basophil% 0.5 % (0-1); Eosinophil# 0.13 X10^3/uL; Eosinophils% 3.2 % (0-5); Hematocrit 41.7 % (40-54); Hemoglobin 13.8 g/dL (13.0-16.5); Lymphocyte # 0.68 X10^3/ul (4.0); Lymphocyte % 16.7 % (19-41); Mean Corp Hgb Conc 33.1 g/dL (32-36); Mean Corpuscular Hgb 28.9 pg (27.0-32.0); Mean Corpuscular Volume 87.4 fL (80-94); Mean Platelet Vol. 9.8 fl (6.2-12.0); Monocyte# 0.38 X10^3/uL; Monocyte% 9.4 % (0-10); NRBC Flagged by Analyzer 0 % (0-5); Neutrophil # 2.84 X10^3/uL (2.7-7.7); POSITIVE COUNT YES; Platelet Count 99 K/mm3 (150-450); RBC Distribution Width CV 12.8 % (11.6-14.6); RBC Distribution Width SD 40.9 fl (35.1-43.9); Red Blood Count 4.77 M/mm3 (4.6-6.2); White Blood Count 4.1 K/mm3 (4.4-11.0)
[2020-01-25 14:57] LABS: Differential Indicated SCAN CRITERIA MET
[2020-01-25 15:07] LABS: Anion Gap 6 (5-15); BUN 20 mg/dL (7-18); BUN/Creat Ratio 20.2 RATIO (10-20); Calcium,Total 9.3 mg/dL (8.5-10.1); Chloride 105 mmol/L (98-107); Creatinine, Serum 0.99 mg/dL (0.70-1.30); EST Glomerular Filtration Rate 81 mL/min (>60); Est Glom Filt Rate - Afr Amer 97 mL/min (>60); Estimated Creatinine Clearance 85.19 ml/min; Glucose 211 mg/dL (74-106); Potassium 4.1 mmol/L (3.5-5.1); Sodium Level 138 mmol/L (136-145)
[2020-01-25 15:14] LABS: Bacteria 0 SEEN /hpf (None Seen); Mucous, Urine 0 SEEN /hpf (<or=2+); Red Blood Cells-Urine 0 SEEN /hpf (0-5); Squamous Epithelial Cells - UA 0 SEEN /hpf (0-5); White Blood Cells 0 SEEN /hpf (0-5)
--- NOTE | 2020-01-25 15:19 | ED.DCSUM_ITS ---
History of Present Illness <Enoch Jiang - Last Filed: 01/25/20 16:24> Onset: Weeks - 1 week Context: Gradual Onset Timing: Continuous Quality: aching Location: bilateral legs and feet Current Severity: Severe Maximum Severity: Severe Worsened by: movement Relieved by: nothing Associated Symptoms: high blood sugar Narrative: 64-year-old male history of uncontrolled diabetes presents to the emergency department with elevated blood sugar and bilateral leg pain. Patient states t hat he has chronic leg pain from neuropathy [facility] secondary to the current pandemic from the coronavirus he has been unable to. He also notices some leg swelling which is chronic for him but elevation which normally works has not been working as effectively as normal. No trauma numbness tingling weakness fevers or back pain or vomiting or diarrhea or difficulty urinating or loss of bowel or bladder function. Blood sugars elevated for a week today was 174 but has been running as high as 400 over the last 1 week. No chest pain shortness of breath cough hemoptysis lightheadedness or dizziness chest or back pain or abdominal pain Prior similar symptoms: Yes Recent Illness/Hospitalization: No <Tommy Yates - Last Filed: 01/25/20 16:28> Chief Complaint: General Illness Past Medical History <Enoch Jiang - Last Filed: 01/25/20 16:24> Prior records reviewed: Yes Past Medical History: - - Polysubstance abuse, uncontrolled DM2, HTN, HPL Surgical History: arthroscopy, knee - left, cholecystectomy, total hip arthroplasty - right x 2, - - s/p right 4th toe amputation Lives: With Family Smoking Status: Former smoker Alcohol: None Drugs: None - Family History Maternal Family History: Reports: Hypertension, - Paternal Family History: Reports: Cancer, - - father of cancer. <Tommy Yates - Last Filed: 01/25/20 16:28> - Allergies and Home Meds Allergies/Adverse Reactions: Allergies morphine Adverse Reaction (Verified 01/25/20 13:58) Gets mean [facility] [[facility] - Review of Systems All systems negative except as indicated General: Denies: Chills, Fever, Malaise Eyes: Denies: Visual changes - bilaterally, Blurred Vision - bilaterally, Diplopia ENT: Denies: Rhinorrhea, Sore throat Cardiovascular: Denies: Chest pain, Palpitations, Heart racing Respiratory: Denies: Dyspnea, Cough, Sputum Gastrointestinal: Denies: Abdominal pain, Nausea, Vomiting, Diarrhea Genitourinary: Denies: Dysuria, Hematuria, Frequency Musculoskeletal: Reports: Swelling, Extremity Pain. Denies: Myalgias, Arthralgias, Back pain Skin: Denies: Rash, Abscess, Abrasions, Wounds Neurological: Denies: Headache, Weakness, Parasthesia, Numbness Psych: Denies: Depression, Anxiety Endocrine: Reports: Polydipsia. Denies: Polyuria <Tommy Yates - Last Filed: 01/25/20 16:28> Physical Exam Vital Signs/Narrative: Vital Signs Temp Pulse Resp BP Pulse Ox 01/25/20 13:58 97.4 F L 94 18 146/81 H 96 <Enoch Jiang - Last Filed: 01/25/20 16:24> Vital Signs/Narrative: Vital Signs Temp Pulse Resp BP Pulse Ox 01/25/20 13:58 97.4 F L 94 18 146/81 H 96 Inital Vital Signs reviewed: Yes General: Well nourished, Well developed, No Acute Distress Head: Normocephalic, Atraumatic Eyes: Perrl, EOMI ENT: Moist mucous membranes Neck: Supple, Nontender Cardiovascular: Regular rate, Regular rhythm, No murmurs Respiratory: No distress, CTA bilaterally, Chest nontender Abdomen: Soft, Nontender, Nondistended, Normal bowel sounds, No masses Back: Nontender, Normal Inspection Extremities: Nontender, Edema. Negative for: Tenderness, Calf Tenderness Skin: Normal color, No rash, No Trauma Neurological: Alert, Oriented x3 Psychological: Normal affect, Normal Mood <Tommy Yates - Last Filed: 01/25/20 16:28> Diagnostic/Tx/Re-eval - Medical Decision Making Attending note: Patient was seen with me. I did a [id number]-[id number] evaluation of the patient. Patient presents with lower extremity swelling that is been getting worse over the past few days. Patient states he also noted his sugars have been running high in the 300s recently. Patient states today this is better and today is the first time it was below 200 in the past week. Patient denies any dysuria or hematuria. Patient denies any urinary frequency. Patient denies any fevers or chills. Vital signs are stable. Patient is afebrile. Patient is in no acute distress. Oral mucosa is pink and moist. Neck is supple. Trachea is midline. There is no JVD. Heart was regular rate and rhy thm. Lungs are clear and equal bilaterally. Abdomen is soft. Bowel sounds are normal. There is no tenderness. Extremities are intact. There is 1-2+ pitting edema of the lower extremities bilaterally. There is no calf tenderness. CBC, metabolic profile, and urinalysis were obtained were all within normal limits. Portable chest x-ray does not show any acute cardiopulmonary process. This was interpreted by the radiologist and myself. Patient was advised to follow-up with his primary care physician at the [facility] in 5 to 7 days. Patient understood and was agreeable with the plan. All questions were answered. <Enoch Jiang - Last Filed: 01/25/20 16:24> Chest X-Ray - ED: 1 View, Read by ED Physician, Read by Radiologist, No Acute Disease <Tommy Yates - Last Filed: 01/25/20 16:28> ED Disposition <Enoch Jiang - Last Filed: 01/25/20 16:24> <Tommy Yates - Last Filed: 01/25/20 16:28> - Plan for ED Patient: Disposition: Home or Assisted Living Diagnosis: Hyperglycemia due to type 2 diabetes mellitus, Diabetic polyneuropathy Instructions: ED Diabetes Overview Referrals: [facility] [Primary Care Provider] -
[2020-01-25 15:30] LABS: Color, Urine Yellow (Yellow); Glucose, Dipstick Normal (Normal); Ketone-Dipstick Negative (Negative); Leukocyte Esterase-Dipstick Negative /ul (Negative); Nitrite-Dipstick Negative (Negative); Occult Blood-Urine Negative /ul (Negative); Protein-Dipstick 30 mg/dl (Negative); Urine Bilirubin Dipstick Negative (Negative); Urine Clarity Clear (Clear); Urine Urobilinogen Normal (Normal)
[2020-01-25 15:42] LABS: Platelet Estimate MOD DEC (ADEQ); Red Cell Morphology NORM C+C NORMAL (NORM C&C)
[2020-01-25 15:43] LABS: Differential Comment SCANNED
[2020-01-25 16:43] VITALS: BP 122/109; PULSE 89; RESP 16; TEMP 36.8; O2SAT 97
== END 2020-01-25 16:48 | disposition home or self-care (01) ==
PROVIDERS: Emergency Provider Physician Assistant Medical
DX: E11.65 Type 2 diabetes mellitus with hyperglycemia (principal); E11.42 Type 2 diabetes mellitus with diabetic polyneuropathy; I10 Essential (primary) hypertension; Z90.49 Acquired absence of other specified parts of digestive tract; Z82.49 Family history of ischemic heart disease and other diseases of the circulatory system; Z87.891 Personal history of nicotine dependence
CPT/HCPCS: 71045; 80048; 81001; 85025; 93005; 99284; A4216

== ENCOUNTER 2020-07-08 12:01 | Observation (INO) | payer OTHER, MEDICARE, SELFPAY ==
[2020-07-08] VITALS (10 sets, daily range): BP systolic 154–188; BP diastolic 96–114; PULSE 62–92; RESP 16–18; TEMP 36.3–36.6; O2SAT 97–99; BMI 33.0; BMI 31.6; BMI 31.7
--- NOTE | 2020-07-08 12:07 | EKG12_ITS ---
Test Reason : CP Blood Pressure : / mmHG Vent. Rate : 088 BPM Atrial Rate : 088 BPM P-R Int : 184 ms QRS Dur : 134 ms QT Int : 384 ms P-R-T Axes : 035 -30 022 degrees QTc Int : 464 ms Normal sinus rhythm Left axis deviation Right bundle branch block Abnormal ECG Confirmed by JESUS RECINOS, COREY ([id number]), slot editor WILLIAM CAST ([id number]) on 07/12/2020 2:37:36 PM Referred By: ALYSSA Confirmed By:NADER LEE MD
[2020-07-08 12:41] LABS: Absolute Lymphocyte Count 0.81 X10^3/uL (0.83-4.51); Absolute Neutrophil Count 2.7 X10^3/uL (2.0-7.7); Basophil# 0.03 X10^3/uL; Basophil% 0.8 % (0-1); Eosinophil# 0.12 X10^3/uL; Hematocrit 42.6 % (40-54); Hemoglobin 14.2 g/dL (13.0-16.5); Lymphocyte # 0.81 X10^3/ul (4.0); Lymphocyte % 20.5 % (19-41); Mean Corp Hgb Conc 33.3 g/dL (32-36); Mean Corpuscular Hgb 29.7 pg (27.0-32.0); Mean Corpuscular Volume 89.1 fL (80-94); Mean Platelet Vol. 10.3 fl (6.2-12.0); Monocyte# 0.33 X10^3/uL; Monocyte% 8.4 % (0-10); NRBC Flagged by Analyzer 0 % (0-5); Neutrophil # 2.65 X10^3/uL (2.7-7.7); Platelet Count 121 K/mm3 (150-450); RBC Distribution Width CV 12.6 % (11.6-14.6); RBC Distribution Width SD 41.1 fl (35.1-43.9); Red Blood Count 4.78 M/mm3 (4.6-6.2)
--- NOTE | 2020-07-08 12:58 | ED.DCSUM_ITS ---
- ER Visit Summary Date of Service: 07/08/20 Chief Complaint: Chest pain History of Present Illness: The patient is a 65 M who goes to the [facility]. He reports he is had intermittent chest pain for the past 2 to 3 months that lasts minutes at a time. He describes it as a substernal pressure that is ass ociated with shortness of breath. Is 10 of 10 at worst and 7-10 currently. Is brought on by stress. Denies any change with exertion. States is relieved by pressing on his chest. He denies any associated nausea, vomiting, or diaphoresis. Patient reports that he missed 3 steps today and fell onto the concrete on the right side of his chest. He denies any loss of consciousness. He is not on anticoagulants. He denies any neck, back, shoulder, wrist, or hip pain. He reports that the chest pain he is experiencing today preceded the fall. Physical Examination: Vitals: Stable. Afebrile. General: Well-nourished and well-developed. Head: Normocephalic atraumatic. Neck: Supple, no lymphadenopathy. No JVD. Nontender. Cardiovascular: Regular rate and rhythm. No murmurs. Respiratory: No respiratory distress. Clear to auscultation bilaterally. Moderate tenderness palpation over the lower ribs on the right. He has no pain with anterior posterior compression of his chest. Abdominal: Soft, nontender, nondistended, normal bowel sounds. No guarding, rebound, or peritoneal signs. Back: Nontender. Extremities: Nontender, 1+ pitting edema lower extremities bilaterally. Skin: Normal color, no rash. Neurologic: Alert and oriented ?3. Cranial nerves II through XII are intact. Normal strength and sensation. Psych: Normal affect. Test Results: EKG is sinus at 88 with a bite right bundle branch block. This is unchanged from January of this year. Troponin is negative. Chem-7 shows a glucose 257. CBC shows a white count of 4.0 platelets 121. Clinical Impression(s) from Imaging Studies Chest X-Ray 07/08/20 13:10 IMPRESSION: Hyperinflation. The lungs are clear. Electronically Signed: Brandon Qiu, at 13:35 EDT , Service support , Emergency Department Course and Treatment: Patient was treated with aspirin for his chest pain this sounds more cardiac in etiology. He asked for naproxen for his chest pain from the fall. He is resting comfortably. Treatment Plan: Discussed the patient the fact that is been having the symptoms for 3 months that we could have him follow-up with his primary care physician as an outpatient. He reports that [facility] He was discussed with Dr. Johnson and will be admitted the hospital for further evaluation treatment. Disposition: Admitted in stable condition. Impression: 1. Atypical chest pain. 2. Fall. 3. Thrombocytopenia. 4. SONDRA score of 3. This note was generated with [employer] dictation software. It may contain incorrect words, spelling, and punctuation that were not noted in review of the chart prior to signing ED Disposition - Plan for ED Patient: [facility] [[facility] Provider] -
[2020-07-08 13:00] LABS: Anion Gap 6 (5-15); BUN 18 mg/dL (7-18); BUN/Creat Ratio 18.4 RATIO (10-20); Calcium,Total 9.1 mg/dL (8.5-10.1); Chloride 103 mmol/L (98-107); Creatinine, Serum 0.98 mg/dL (0.70-1.30); EST Glomerular Filtration Rate 82 mL/min (>60); Est Glom Filt Rate - Afr Amer 99 mL/min (>60); Estimated Creatinine Clearance 84.93 ml/min; Glucose 257 mg/dL (74-106); Potassium 4.4 mmol/L (3.5-5.1); Sodium Level 136 mmol/L (136-145)
--- NOTE | 2020-07-08 13:10 | RAD_ITS ---
STUDY: X-RAY CHEST REASON FOR EXAM: Male, 65 years old. CP TECHNIQUE: Single AP portable view of the chest. COMPARISON: Comparison is made with prior study dated 01/25/2020. FINDINGS: EKG electrodes are seen. Hyperinflation. The lungs are clear. There is no demonstrated pleural abnormality. Normal size heart. Normal mediastinum and brie. Normal visualized pulmonary arteries. Normal visualized aortic arch and descending thoracic aorta. Normal visualized thoracic spine. Normal visualized ribs, clavicles, and shoulders. There is no demonstrated abnormality of the visualized soft tissue structures of the upper abdomen. RAD/Chest 1 View (Portable) IMPRESSION: Hyperinflation. The lungs are clear. Electronically Signed: Brandon Qiu, at 13:35 EDT , Service support ,
[2020-07-08] MEDS: Naproxen 500 MG Tablet PO (13:31)
[2020-07-08] MEDS: Aspirin 81 MG TAB.CHEW 324 MG PO (13:31)
[2020-07-08] MEDS: 0.9% Normal Saline 1,000 ML 150 ML IV (13:31)
--- NOTE | 2020-07-08 14:30 | NURSING ---
CALLED DIDIER GUARDAD[facility], FAXED CHART TO [facility]
--- NOTE | 2020-07-08 14:34 | NURSING ---
FAXED CHART TO [facility] GUARDAD[facility]
--- NOTE | 2020-07-08 14:35 | NURSING ---
PCU OBS CP PAINTSIL
--- NOTE | 2020-07-08 14:40 | PCM.HP.STD ---
Problem List (1) Anxiety Status: Chronic (2) Depression Status: Chronic Qualifiers: Depression Type: unspecified Qualified Code(s): F32.9 - Major depressive disorder, single episode, unspecified (3) Hyperlipidemia Status: Chronic Qualifiers: Hyperlipidemia type: unspecified (4) Hypertension Status: Chronic Qualifiers: Hypertension type: essential hypertension (5) Type 2 diabetes mellitus with diabetic polyneuropathy Status: Chronic Qualifiers: Diabetes mellitus long term care administrator insulin use: with care home use Qualified Code(s): E11.42 - Type 2 diabetes mellitus with diabetic polyneuropathy; Z79.4 - FDC (current) use of insulin History of Present Illness Date of Admission: 07/08/20 Chief Complaint: Fall - today. Recurrent chest pain - 3 months The patient is a 65 year old M with past medical history of hype 2 DM complicated by diabetic polyneuropathy, hypertension, hyperlipidemia who comes in after a fall today. Patient stated that he was getting ready to go for his [employer] meeting. He stumbled down some steps in his garage. He fell more to the right side and hit the right side of his face. He denied passing out. Denied any headache or dizziness. Did not hit the back of his head. He rather fell on the right side of his face. He had generalized pain most on the right side during the AA meeting. He also has some chest discomfort. He went to the urgent care facility and was referred to the emergency room. Patient complains of persistent chest pain that comes on at any time, not really with exertion. It is substernal, severe, has verbal lasting times. He had chest pain from the night before and that had persisted till today. He denied any dizziness or nausea or diaphoresis or palpitations. 92 temperature 97.4 F, heart rate 92, blood pressure 188/114, respiratory rate 18, SPO2 was 97% on room air. His admitting blood work was unremarkable. Admitting chest x-ray was also unremarkable Past Medical History Past Medical History (Chronic Problems): Chronic Problems Type 2 diabetes mellitus with diabetic polyneuropathy (Chronic) Diabetic foot ulcer (Chronic) Hepatitis C (Chronic) Insomnia (Chronic) Vitamin D deficiency (Chronic) Pruritus (Chronic) Diabetic polyneuropathy (Chronic) Depression (Chronic) Delayed wound healing (Chronic) 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) Osteomyelitis of right foot (Chronic) Hammer toe of right foot (Chronic) Hypertension (Chronic) Hyperlipidemia (Chronic) Anxiety (Chronic) Diabetes (Chronic) Allergies morphine Adverse Reaction (Verified 01/25/20 13:58) Gets mean Home Medications: Ambulatory Orders Medication Instructions Recorded Melatonin 6 mg PO QHS PRN 04/30/17 Carvedilol 3.125 mg PO BID 08/18/19 Cholecalciferol (Vitamin D3) 2,000 unit PO DAILY 08/18/19 [Vitamin D3] Gabapentin [Neurontin] 300 mg PO TID 08/18/19 Metformin HCl 1,000 mg PO BID 08/18/19 Aspirin E.C. [Ecotrin] 81 mg PO DAILY@0800 07/08/20 Emollient Combination No.72 1 applic TOPICAL 0600,2200 07/08/20 [Eucerin Intensive Repair] Insulin Glargine [Lantus SoloStar 28 units SUBCUT QHS 07/08/20 Pen] Liraglutide [Victoza] 1.2 mg SQ DAILY 07/08/20 Naproxen [Naprosyn] 500 mg PO BID 07/08/20 Surgical History: arthroscopy, knee - left, cholecystectomy, total hip arthroplasty - right x 2, - - s/p right 4th toe amputation Psychiatric History: Anxiety, Depression Smoking Status: Former smoker Tobacco Use: Non-smoker Alcohol: None Drugs: None - *Family History Maternal History Items: Heart Disease, Hypertension, - Paternal History Items: Cancer, Diabetes, - - father of cancer. Review of Systems Constitutional: Reports: Fatigue. Denies: Anorexia, Chills, Fever, Night Sweats, Malaise, Weakness, Weight Change Eyes: Denies: Blurred vision, Cataracts, Conjunctivae Inflammation, Pain, Redness, Vision Change HEENT: Denies: Difficulty Hearing, Difficulty Swallowing, Head Aches, Hearing Changes, Sinus Congestion, Sinus Drainage Cardiovascular: Reports: Chest Pain, Chest Pressure. Denies: Light Headedness, Orthopnea, Palpitations, Paroxysmal Noc. Dyspnea, Syncope Respiratory: Denies: Cough, Hemoptysis, Shortness of Breath, Shortness of breath at rest, Shortness of breath upon exertion, Sputum production Gastrointestinal: Denies: Abdominal Pain, Hematemesis, Hematochezia, Nausea, Vomiting Genitourinary: Denies: Dysuria, Frequency Musculoskeletal: Denies: Joint Pain, Joint stiffness, Joint swelling, Joint Tenderness Skin: Denies: Rash, Wounds Neurological: Denies: Difficulty swallowing, Focal weakness, Numbness, Tingling Psychiatric: Denies: Anxiety, Depression, Homicidal Ideations, Suicidal Ideations Hematologic/ Lymphatic: Denies: Easy Bruising, Easy Bleeding VTE Information - Inpt Only VTE Present on Admission: No VTE Pharm Prophylaxis ordered?: Yes - Physical Exam Vitals/I&O's: Vital Signs Temp Pulse Resp BP Pulse Ox 97.4 F L 87 16 161/99 H 99 07/08/20 12:04 07/08/20 13:13 07/08/20 13:13 07/08/20 13:13 07/08/20 13:13 Oxygen Delivery Method Room Air Weight: 113.398 kg Body Mass Index (BMI) 33.0 Finger Stick Blood Glucose 151 General: Alert, Oriented x3, Cooperative, No apparent distress HEENT: Atraumatic, PERRLA, EOMI, Normocephalic Oral: Moist Mucosa Neck: Supple Lungs: Clear to auscultation, Normal air movement Cardiovascular: Regular rate, Regular Rhythm, Normal S1, Normal S2, No murmurs Abdomen: Bowel Sounds Present, Soft, Non Tender, Non-Distended, No Hepato-splenomegaly Extremities: No edema Skin: No rashes Musculoskeletal: No Tenderness to Palpation of Joints or Extremities Lymphatic: No Cervical, Supraclavicular, or Inguinal Adenopathy Neurological: Cranial nerves II-XII grossly intact, Neuro grossly intact Psych/Mental Status: Normal Affect, Appropriate Laboratory Results 07/08/20 12:20: WBC 4.0 L, RBC 4.78, Hgb 14.2, Hct 42.6, MCV 89.1, MCH 29.7, MCHC 33.3, RDW Std Deviation 41.1, RDW Coeff of Hakeem 12.6, Plt Count 121 L, MPV 10.3, Immature Gran % (Auto) 0.300, Neut % (Auto) 67.0, Lymph % (Auto) 20.5, [place] % (Auto) 8.4, Eos % (Auto) 3.0, Baso % (Auto) 0.8, Absolute Neuts (auto) 2.7, Absolute Lymphs (auto) 0.81 L, Nucleated RBC % 0 07/08/20 12:20: Sodium 136, Potassium 4.4, Chloride 103, Carbon Dioxide 27.0, Anion Gap 6, BUN 18, Creatinine 0.98, Estim Creat Clear Calc 84.93, Est GFR (MDRD) Af Amer 99, Est GFR (MDRD) Non-Af 82, BUN/Creatinine Ratio 18.4, Glucose 257 H, Calcium 9.1, Troponin I < 0.015 Current Medications Sodium Chloride () 1,000 mls @ 150 mls/hr IV .Q6H40M PENDING SALE TO [facility] Last Admin: 07/08/20 13:31 Dose: 150 mls/hr Documented by: Assessment/Plan All Active Problems Debility (Acute) History of transmetatarsal amputation of right foot (Acute) Methicillin resistant Staph aureus culture positive (Acute) H/O alcohol abuse (Acute) H/O drug abuse (Acute) Diabetic foot infection (Acute) Cellulitis (Acute) Preop cardiovascular exam (Acute) Troponin I above reference range (Acute) Stroke (Acute) 1. Chest pain, atypical in a patient with multiple risk factors, recurrent, has been occurring for more than 3 months EKG shows no acute ST-T changes, troponins x1 is negative Admit to PCU, trend troponins, stress test in a.m. Continue on aspirin, carvedilol, lipid profile in a.m. 2. Fall, mechanical, history of vitamin D deficiency Check vitamin D levels 3. Hypertensive urgency, patient is uncontrolled On Coreg 3.125mg. Will increase Coreg to 6.25 mg p.o. twice daily Continue to monitor blood pressure closely 4. Type 2 DM complicated by peripheral neuropathy, hold metformin, Continue on his home Lantus and Victoza 5. DVT prophylaxis with early ambulation OBSV E&M: [id number] Initial observation care L3
--- NOTE | 2020-07-08 15:25 | ED.RN ---
[facility] WILL NOT AD[facility] UNDER [facility]BSERVATION AT [place]
--- NOTE | 2020-07-08 17:25 | EKG12_ITS ---
Test Reason : CP ADMITT Blood Pressure : / mmHG Vent. Rate : 075 BPM Atrial Rate : 075 BPM P-R Int : 180 ms QRS Dur : 132 ms QT Int : 392 ms P-R-T Axes : 014 -25 011 degrees QTc Int : 437 ms Normal sinus rhythm Right bundle branch block Abnormal ECG Confirmed by MIAH RECINOS, SERGIO ([id number]), editor greeting card WILLIAM CAST ([id number]) on 07/14/2020 10:27:40 AM Referred By: KRYS ADMIT Confirmed By:SERGIO DOOLEY MD
[2020-07-08 19:05] LABS: Bedside Glucose 204 mg/dL (70-110)
[2020-07-08] MEDS: Carvedilol 6.25 MG Tablet PO (20:56)
[2020-07-08] MEDS: Insulin Lispro 100 UNIT/ML INSULN.PEN SC (21:04)
[2020-07-08 21:06] LABS: Bedside Glucose 157 mg/dL (70-110)
[2020-07-09] VITALS (15 sets, daily range): BP systolic 124–164; BP diastolic 77–104; PULSE 71–85; RESP 14–18; TEMP 36.4–36.9; O2SAT 94–97
[2020-07-09] MEDS: MELATONIN 3 MG TABLET 6 MG PO (01:48)
--- NOTE | 2020-07-09 05:00 | EKG12_ITS ---
Test Reason : AM EKG Blood Pressure : / mmHG Vent. Rate : 080 BPM Atrial Rate : 080 BPM P-R Int : 166 ms QRS Dur : 136 ms QT Int : 410 ms P-R-T Axes : 031 -24 024 degrees QTc Int : 472 ms Normal sinus rhythm Right bundle branch block Abnormal ECG Confirmed by MIAH RECINOS, SERGIO ([id number]), manager editorial WILLIAM CAST ([id number]) on 07/14/2020 10:19:09 AM Referred By: TERRA Confirmed By:SERGIO DOOLEY MD
[2020-07-09 05:29] LABS: Absolute Lymphocyte Count 0.99 X10^3/uL (0.83-4.51); Absolute Neutrophil Count 2.3 X10^3/uL (2.0-7.7); Basophil# 0.03 X10^3/uL; Basophil% 0.8 % (0-1); Eosinophil# 0.18 X10^3/uL; Eosinophils% 4.6 % (0-5); Hemoglobin 13.5 g/dL (13.0-16.5); Lymphocyte # 0.99 X10^3/ul (4.0); Lymphocyte % 25.1 % (19-41); Mean Corp Hgb Conc 32.1 g/dL (32-36); Mean Corpuscular Volume 90.3 fL (80-94); Mean Platelet Vol. 9.7 fl (6.2-12.0); Monocyte# 0.41 X10^3/uL; Monocyte% 10.4 % (0-10); NRBC Flagged by Analyzer 0 % (0-5); Neutrophil # 2.32 X10^3/uL (2.7-7.7); Neutrophil % 58.6 % (47-70); Platelet Count 112 K/mm3 (150-450); RBC Distribution Width CV 12.7 % (11.6-14.6); RBC Distribution Width SD 41.8 fl (35.1-43.9); Red Blood Count 4.65 M/mm3 (4.6-6.2)
[2020-07-09 05:47] LABS: ALB/GLOB Ratio 1.2 RATIO (0.9-2.4); AST(SGOT) 26 U/L (15-37); Alanine Aminotransfer ALT/SGPT 50 U/L (16-61); Albumin, Serum 3.9 g/dL (3.2-5.0); Alkaline Phosphatase 52 U/L (45-117); Anion Gap 4 (5-15); BUN 15 mg/dL (7-18); BUN/Creat Ratio 15.7 RATIO (10-20); Calcium,Total 8.8 mg/dL (8.5-10.1); Chloride 104 mmol/L (98-107); Creatinine, Serum 0.96 mg/dL (0.70-1.30); EST Glomerular Filtration Rate 84 mL/min (>60); Est Glom Filt Rate - Afr Amer 102 mL/min (>60); Globulin 3.3 g/dL (2.2-4.2); Glucose 159 mg/dL (74-106); Protein, Total 7.2 g/dL (6.4-8.2); Sodium Level 137 mmol/L (136-145)
[2020-07-09] MEDS: Aspirin E.C. 81 MG Tablet PO (06:12)
[2020-07-09 06:25] LABS: Bedside Glucose 173 mg/dL (70-110)
--- NOTE | 2020-07-09 08:05 | CASEMGMT ---
Call from Priscila at [place] [facility] and she is updated on pt OBS status and chest pain diagnosis at this time. Priscila asked if pt has any other insurance listed and what is listed as primary and this [facility]IL[facility]. She states that pt 'does not have any service coverage for anything cardiac related' and that 'they will sort all that out later', referring to primary and secondary coverage. Priscila's contact info [phone] ext [phone]. Ladonna CHO CM
[2020-07-09] MEDS: Insulin Lispro 100 UNIT/ML INSULN.PEN SC (11:36)
[2020-07-09 11:40] LABS: Bedside Glucose 264 mg/dL (70-110)
--- NOTE | 2020-07-09 13:14 | STRESSREP_ITS ---
Stress Test Report Date: 10/09/2019 Procedure: Pharmacologic stress nuclear imaging study Indications: Chest pain Consent: Per the patient Procedure: The patient underwent pharmacologic (Regadenoson) evaluation with a peak heart rate of 97 beats per minute (62%predicted maximal heart rate) and a peak blood pressure of 168/84 mmHg. The baseline ECG demonstrated normal sinus rhythm, right bundle branch block. EKG during lexiscan infusion revealed no significant ischemic changes. EKG post infusion revealed no significant ischemic changes. [There were no cardiac dysrhythmias pretest, during pharmacologic infusion, or recovery]. [There was no complaint of chest discomfort during pharmacologic infusion or recovery]. The examination was discontinued secondary to completion of protocol. Impression: 1. Lexiscan stress test test is negative for Lexiscan infusion induced EKG changes of ischemia. 2. Lexiscan stress test test is negative for Lexiscan infusion induced chest pain. 3. Results of the nuclear portion of the test is as below Myocardial perfusion imaging study: Technique: The patient was injected with 14 millicuries of technetium 99m Cardiolite and subsequently rest SPECT Cardiolite nuclear imaging was obtained in the horizontal long, vertical long, and short axis views. The patient underwent pharmacologic (Regadenoson) evaluation. Please see above for details. The patient was injected with 45 millicuries of technetium 99m Cardiolite and subsequently stress SPECT Cardiolite nuclear imaging was obtained in the horizontal long, vertical long, and short axis views. A gated Cardiolite study at peak stress was obtained. Interpretation: Rest and stress SPECT Cardiolite nuclear imaging status post realignment, normalization, and attenuation correction demonstrate normal myocardial radioisotope uptake at rest. On the stress images there is mildly decreased radioisotope uptake in the apex. These findings are suggestive of mild apical ischemia. Gated images reveal no significant regional wall motion abnormalities. The reported LVEF is 55%. Impression: 1. There is mild apical ischemia. 2. Estimated ejection fraction is 55%. This note was generated with [employer] software. It may contain incorrect words, spelling, and punctuation that were not noted in checking the note before signing.
--- NOTE | 2020-07-09 13:21 | PN_ITS ---
Reason for Visit: chest pain Subjective: still with chest pain. Chest pain has been ongoing for several months, no relieving nor exacerbating factors. Vitals/I&O's: Vital Signs Temp Pulse Resp BP Pulse Ox 36.4 C L 85 16 164/83 H 97 07/09/20 10:40 07/09/20 10:40 07/09/20 10:40 07/09/20 10:40 07/09/20 10:40 Oxygen Delivery Method Room Air Weight: 108.3 kg Body Mass Index (BMI) 31.6 Finger Stick Blood Glucose 151 Intake and Output for Last 24 Hours 07/07/20 07/08/20 07/09/20 23:59 23:59 23:59 Intake Total 350 / 830 1200 / 1200 Output Total 700 / 700 Balance 350 / 830 500 / 500 General: Alert, No apparent distress HEENT: Atraumatic, Normocephalic Oral: Moist Mucosa, No Gingival or Mucosal Lesions/ Ulcerations Neck: No Nodes, Thyroid Normal Size and Texture Lungs: Clear to auscultation, Normal air movement, No rhonchi, No wheeze, No rales Cardiovascular: Regular rate, Regular Rhythm, Normal S1, Normal S2, No murmurs Abdomen: Bowel Sounds Present, Soft, Non Tender, Non-Distended Laboratory Results 07/08/20 16:52: Troponin I 0.018 07/08/20 19:01: POC Glucose 204 H 07/08/20 19:40: Troponin I < 0.015 07/08/20 20:58: POC Glucose 157 H 07/09/20 05:10: WBC 4.0 L, RBC 4.65, Hgb 13.5, Hct 42.0, MCV 90.3, MCH 29.0, MCHC 32.1, RDW Std Deviation 41.8, RDW Coeff of Hakeem 12.7, Plt Count 112 L, MPV 9.7, Immature Gran % (Auto) 0.500, Neut % (Auto) 58.6, Lymph % (Auto) 25.1, [place] % (Auto) 10.4 H, Eos % (Auto) 4.6, Baso % (Auto) 0.8, Absolute Neuts (auto) 2.3, Absolute Lymphs (auto) 0.99, Nucleated RBC % 0 07/09/20 05:10: Sodium 137, Potassium 4.0, Chloride 104, Carbon Dioxide 29.0, Anion Gap 4 L, BUN 15, Creatinine 0.96, Estim Creat Clear Calc 86.70, Est GFR (MDRD) Af Amer 102, Est GFR (MDRD) Non-Af 84, BUN/Creatinine Ratio 15.7, Glucose 159 H, Calcium 8.8, Total Bilirubin 1.10 H, AST 26, ALT 50, Alkaline Phosphatase 52, Total Protein 7.2, Albumin 3.9, Globulin 3.3, Albumin/Globulin Ratio 1.2 07/09/20 06:11: POC Glucose 173 H 07/09/20 11:35: POC Glucose 264 H Current Medications Acetaminophen (Tylenol) 650 mg PO Q6H PRN PRN PRN Reason: Pain Score 1-10/Temp > 100.7 F Aspirin (Ecotrin) 81 mg PO DAILY@0800 [facility] Last Admin: 07/09/20 06:12 Dose: 81 mg Documented by: Carvedilol (Coreg) 6.25 mg PO BID [facility] Cholecalciferol (Vitamin D (25mcg)) 2,000 unit PO DAILY [facility] Dextrose (D50w Syringe) 0 gm IV X1 PRN; Protocol PRN Reason: Hypoglycemia Gabapentin (Neurontin) 300 mg PO TIDCM [facility] Glucagon () 1 mg IM .X1 PRN PRN Reason: Hypoglycemia Insulin Glargine (Lantus (Bk)) 28 units SC QHS [facility] Last Admin: 07/08/20 20:58 Dose: 28 units Documented by: Insulin Human Lispro (Humalog Kwikpen (Bk)) 0 unit SC [facility]; Protocol Last Admin: 07/09/20 11:36 Dose: 2 units Documented by: Magnesium Hydroxide (Milk Of Magnesia) 30 ml PO DAILY PRN PRN PRN Reason: Constipation Melatonin (Melatonin) 6 mg PO QHS PRN PRN Reason: SLEEP Last Admin: 07/09/20 01:48 Dose: 6 mg Documented by: Metformin HCl (Glucophage) 1,000 mg PO BIDCM [facility] Morphine Sulfate () 2 mg IV Q3H PRN PRN PRN Reason: Pain Score 6-10/10 Nitroglycerin (Nitrostat) 0.4 mg SUBLINGUAL Q5M PRN PRN Reason: CARDIAC/CHEST PAIN Ondansetron HCl (Zofran) 4 mg IV Q8H PRN PRN PRN Reason: NAUSEA/VOMITING Sodium Chloride () 10 - 40 ml IV UD PRN PRN Reason: SALINE FLUSH STROKE Vital Signs/Narrative: Vital Signs Temp Pulse Resp BP Pulse Ox 07/09/20 10:40 36.4 C L 85 16 164/83 H 97 Medical Necessity - Tobacco Use Smoking Status: Former smoker Tobacco Use: Non-smoker Assessment/Plan All Active Problems Debility (Acute) History of transmetatarsal amputation of right foot (Acute) Methicillin resistant Staph aureus culture positive (Acute) H/O alcohol abuse (Acute) H/O drug abuse (Acute) Diabetic foot infection (Acute) Cellulitis (Acute) Preop cardiovascular exam (Acute) Troponin I above reference range (Acute) Stroke (Acute) 1. chest pain: atypical. stress abnormal. cardiology to see. 2. mechanical fall: after tripping over his feet. no sequela OBSV E&M: 41569 Subsequent observation care L2
--- NOTE | 2020-07-09 13:36 | PCM.CONS.C ---
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 Patient stated that he was getting ready to go for his [employer] meeting. He stumbled down some steps in his garage. He fell more to the right side and hit the right side of his face. He denied passing out. Denied any headache or dizziness. Did not hit the back of his head. He rather fell on the right side of his face. He had generalized pain most on the right side during the AA meeting. He also has some chest discomfort. He went to the urgent care facility and was referred to the emergency room. Patient complains of persistent chest pain that comes on at any time, not really with exertion. It is substernal, severe, has verbal lasting times. He had chest pain from the night before and that had persisted till today. He denied any dizziness or nausea or diaphoresis or palpitations. Patient underwent stress testing which revealed mild apical ischemia. EF was preserved. Review of systems: All systems reviewed. All else is negative except that in the HPI. Past Medical History Allergies/Adverse Reactions: Allergies morphine Adverse Reaction (Verified 01/25/20 13:58) Gets mean Home Medications: Ambulatory Orders Medication Instructions Recorded Melatonin 6 mg PO QHS PRN 04/30/17 Carvedilol 3.125 mg PO BID 08/18/19 Cholecalciferol (Vitamin D3) 2,000 unit PO DAILY 08/18/19 [Vitamin D3] Gabapentin [Neurontin] 300 mg PO TID 08/18/19 Metformin HCl 1,000 mg PO BID 08/18/19 Aspirin E.C. [Ecotrin] 81 mg PO DAILY@0800 07/08/20 Emollient Combination No.72 1 applic TOPICAL 0600,2200 07/08/20 [Eucerin Intensive Repair] Insulin Glargine [Lantus SoloStar 28 units SUBCUT QHS 07/08/20 Pen] Liraglutide [Victoza] 1.2 mg SQ DAILY 07/08/20 Naproxen [Naprosyn] 500 mg PO BID 07/08/20 Past Medical History (Chronic Problems): Chronic Problems Type 2 diabetes mellitus with diabetic polyneuropathy (Chronic) Diabetic foot ulcer (Chronic) Hepatitis C (Chronic) Insomnia (Chronic) Vitamin D deficiency (Chronic) Pruritus (Chronic) Diabetic polyneuropathy (Chronic) Depression (Chronic) Delayed wound healing (Chronic) 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 Smoking Status: Former smoker Tobacco Use: Non-smoker Alcohol: None Drugs: None Objective: Vital Signs Temp Pulse Resp BP Pulse Ox 97.5 F L 85 16 164/83 H 97 07/09/20 10:40 07/09/20 10:40 07/09/20 10:40 07/09/20 10:40 07/09/20 10:40 Oxygen Delivery Method Room Air Weight: 238 lb 12.17 oz Body Mass Index (BMI) 31.6 Finger Stick Blood Glucose 151 Intake and Output for Last 24 Hours 07/07/20 07/08/20 07/09/20 23:59 23:59 23:59 Intake Total 350 / 830 1200 / 1200 Output Total 700 / 700 Balance 350 / 830 500 / 500 General: Awake, Alert, Oriented x 3 HEENT: Atraumatic Oral: Moist Mucosa Neck: Supple Lungs: Clear to auscultation Abdomen: Soft Skin: No Rashes Psych/Mental Status: Appropriate 07/08/20 16:52: Troponin I 0.018 07/08/20 19:40: Troponin I < 0.015 07/09/20 05:10: WBC 4.0 L, RBC 4.65, Hgb 13.5, Hct 42.0, MCV 90.3, MCH 29.0, MCHC 32.1, Plt Count 112 L, MPV 9.7, Immature Gran % (Auto) 0.500, Neut % (Auto) 58.6, Lymph % (Auto) 25.1, [place] % (Auto) 10.4 H, Eos % (Auto) 4.6, Baso % (Auto) 0.8, Absolute Neuts (auto) 2.3, Nucleated RBC % 0 07/09/20 05:10: Sodium 137, Potassium 4.0, Chloride 104, Carbon Dioxide 29.0, Anion Gap 4 L, BUN 15, Creatinine 0.96, Est GFR (MDRD) Af Amer 102, Est GFR (MDRD) Non-Af 84, BUN/Creatinine Ratio 15.7, Glucose 159 H, Calcium 8.8, Total Bilirubin 1.10 H Rhythm: EKG: ECHO: Stress Test: Cardiac Cath: PCI: CT Surgery: Holter monitor: EPS: PPM: CXR: Chest CT Scan: Assessment/Plan 1. Chest pain: There is some features to the chest pain that are concerning for ischemic etiology. Stress test was abnormal and was suggestive of mild apical ischemia. I think it will be reasonable to proceed with coronary angiography to evaluate this further. Patient understands the risks and benefits and is agreeable to proceeding. Rest of the management will be based on angiographic findings.
--- NOTE | 2020-07-09 13:47 | CASEMGMT ---
According to the [facility] website for traditional coverage, the following are in-network tertiary facilities: [facility], [place], [facility], [facility], [facility], [facility], [facility], and . Pt did not provide insurance card so this RN CM is unable to attain proper plan coverage at this time. Pt does have [employer] benefits as well but according to Priscila at the [place] transfer center, pt does not have service coverage for anything cardiac. SStaten RN CM
--- NOTE | 2020-07-09 14:37 | PCM.DC ---
You will use the following diet at home:: Calorie/Carbohydrate Controlled (specify 1200, 1400, etc) - 1800 Your food should be the consistency of: Regular Your liquids should be the consistency of: Regular/Thin Allergies/Adverse Reactions: Allergies morphine Adverse Reaction (Verified 01/25/20 13:58) Gets mean Medications to take at Discharge Melatonin 6 mg PO QHS PRN 04/30/17 Carvedilol 3.125 mg PO BID 08/18/19 Cholecalciferol (Vitamin D3) [Vitamin D3] 2,000 unit PO DAILY 08/18/19 Gabapentin [Neurontin] 300 mg PO TID 08/18/19 Metformin HCl 1,000 mg PO BID 08/18/19 Aspirin E.C. [Ecotrin] 81 mg PO DAILY@0800 07/08/20 Emollient Combination No.72 [Eucerin Intensive Repair] 1 applic TOPICAL 0600,2200 07/08/20 Insulin Glargine [Lantus SoloStar Pen] 28 units SUBCUT QHS 07/08/20 Liraglutide [Victoza] 1.2 mg SQ DAILY 07/08/20 Naproxen [Naprosyn] 500 mg PO BID 07/08/20 Primary Care Physician: [facility] [Primary Care Provider] - Test Results: Test results from this visit will be discussed in further detail at your follow-up appointment, if applicable. Please Follow Up With: Jeff Humphrey MD Proposed Discharge Date: 07/09/20
--- NOTE | 2020-07-09 14:39 | DS.PCM_ITS ---
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 There is mild apical ischemia. 2. Estimated ejection fraction is 55%. Summary of Care Provided: The patient is a 65 year old M presents with chest pain. Chest pain was midsternal and have been going on for several months. Patient underwent a stress test that showed some questionable apical ischemia. Patient underwent left heart catheterization that showed normal coronaries did however show mild aortic stenosis. DW Dr. Humphrey, who would recommend patient follow-up with following up with cardiology to get an echocardiogram for further evaluation of the aortic stenosis. Patient's chest pain is felt to be atypical bosselated with just stress particularly since is been going on for several months. Patient be discharged home in stable condition. [] - Physical Exam Vitals/I&O's: Vital Signs Temp Pulse Resp BP Pulse Ox 36.4 C L 85 16 164/83 H 97 07/09/20 10:40 07/09/20 10:40 07/09/20 10:40 07/09/20 10:40 07/09/20 10:40 Oxygen Delivery Method Room Air Weight: 108.3 kg Body Mass Index (BMI) 31.6 Finger Stick Blood Glucose 151 Intake and Output for Last 24 Hours 07/07/20 07/08/20 07/09/20 23:59 23:59 23:59 Intake Total 350 / 830 1200 / 1200 Output Total 700 / 700 Balance 350 / 830 500 / 500 General: Alert, No apparent distress HEENT: Atraumatic, Normocephalic Oral: Moist Mucosa, No Gingival or Mucosal Lesions/ Ulcerations Neck: No Nodes, Thyroid Normal Size and Texture Lungs: Clear to auscultation, Normal air movement, No rhonchi, No wheeze Cardiovascular: Regular rate, Regular Rhythm, Normal S1, Normal S2, No murmurs Abdomen: Bowel Sounds Present, Soft, Non Tender, Non-Distended Laboratory Results 07/08/20 16:52: Troponin I 0.018 07/08/20 19:01: POC Glucose 204 H 07/08/20 19:40: Troponin I < 0.015 07/08/20 20:58: POC Glucose 157 H 07/09/20 05:10: WBC 4.0 L, RBC 4.65, Hgb 13.5, Hct 42.0, MCV 90.3, MCH 29.0, MCHC 32.1, RDW Std Deviation 41.8, RDW Coeff of Hakeem 12.7, Plt Count 112 L, MPV 9.7, Immature Gran % (Auto) 0.500, Neut % (Auto) 58.6, Lymph % (Auto) 25.1, [place] % (Auto) 10.4 H, Eos % (Auto) 4.6, Baso % (Auto) 0.8, Absolute Neuts (auto) 2.3, Absolute Lymphs (auto) 0.99, Nucleated RBC % 0 07/09/20 05:10: Sodium 137, Potassium 4.0, Chloride 104, Carbon Dioxide 29.0, Anion Gap 4 L, BUN 15, Creatinine 0.96, Estim Creat Clear Calc 86.70, Est GFR (MDRD) Af Amer 102, Est GFR (MDRD) Non-Af 84, BUN/Creatinine Ratio 15.7, Glucose 159 H, Calcium 8.8, Total Bilirubin 1.10 H, AST 26, ALT 50, Alkaline Phosphatase 52, Total Protein 7.2, Albumin 3.9, Globulin 3.3, Albumin/Globulin Ratio 1.2 07/09/20 06:11: POC Glucose 173 H 07/09/20 11:35: POC Glucose 264 H Current Medications Acetaminophen (Tylenol) 650 mg PO Q6H PRN PRN PRN Reason: Pain Score 1-10/Temp > 100.7 F Aspirin (Ecotrin) 81 mg PO DAILY@0800 [facility] Last Admin: 07/09/20 06:12 Dose: 81 mg Documented by: Carvedilol (Coreg) 6.25 mg PO BID [facility] Cholecalciferol (Vitamin D (25mcg)) 2,000 unit PO DAILY [facility] Dextrose (D50w Syringe) 0 gm IV X1 PRN; Protocol PRN Reason: Hypoglycemia Gabapentin (Neurontin) 300 mg PO TIDCM [facility] Glucagon () 1 mg IM .X1 PRN PRN Reason: Hypoglycemia Insulin Glargine (Lantus (Bkc)) 28 units SC QHS [facility] Last Admin: 07/08/20 20:58 Dose: 28 units Documented by: Insulin Human Lispro (Humalog Kwikpen ([facility])) [address] [facility]; Protocol Last Admin: 07/09/20 11:36 Dose: 2 units Documented by: Magnesium Hydroxide (Milk Of Magnesia) 30 ml PO DAILY PRN PRN PRN Reason: Constipation Melatonin (Melatonin) 6 mg PO QHS PRN PRN Reason: SLEEP Last Admin: 07/09/20 01:48 Dose: 6 mg Documented by: Met[facility] ([facility]) [facility] Morphine Sulfate () 2 mg IV Q3H PRN PRN PRN Reason: Pain Score 6-10/10 Nitroglycerin (Nitrostat) 0.4 mg SUBLINGUAL Q5M PRN PRN Reason: CARDIAC/CHEST PAIN Ondansetron HCl (Zofran) 4 mg IV Q8H PRN PRN PRN Reason: NAUSEA/VOMITING Sodium Chloride () 10 - 40 ml IV UD PRN PRN Reason: SALINE FLUSH Discharge Diet: No Restrictions Home Medications: Medications to take at Discharge Melatonin 6 mg PO QHS PRN 04/30/17 Carvedilol 3.125 mg PO BID 08/18/19 Cholecalciferol (Vitamin D3) [Vitamin D3] 2,000 unit PO DAILY 08/18/19 Gabapentin [Neurontin] 300 mg PO TID 08/18/19 Metformin HCl 1,000 mg PO BID 08/18/19 Aspirin E.C. [Ecotrin] 81 mg PO DAILY@0800 07/08/20 Emollient Combination No.72 [Eucerin Intensive Repair] 1 applic TOPICAL 0600,2200 07/08/20 Insulin Glargine [Lantus SoloStar Pen] 28 units SUBCUT QHS 07/08/20 Liraglutide [Victoza] 1.2 mg SQ DAILY 07/08/20 Naproxen [Naprosyn] 500 mg PO BID 07/08/20 [facility] [[facility]] - Please Follow Up With: Jeff Humphrey MD Disposition: Home Minutes spent on discharge:: 32 Patient Condition:: Good Medical Necessity - Tobacco Use Smoking Status: Former smoker Tobacco Use: Non-smoker Meaningful Use Info Meaningful Use Diagnoses (Choose all that apply): None applicable OBSV E&M: 46736 Observation care discharge
--- NOTE | 2020-07-09 14:58 | CL.D_ITS ---
Patient Name: DAMON WYLIE Study Date: 07/09/2020 Performing: Selina Humphrey MD Ht: 73 inches 185 cm : 1955 Wt: 238.4 lbs 108 kg Age: 65 Gender: male BSA: 2.31 PROCEDURE(S) PERFORMED MG30-OQB/COR/LV CLINICAL PROFILE AND INDICATIONS Indications: New Onset Angina <= 2 months Heart Failure: None Stress/Imaging Date: 07/09/20tress Test with SPECT MPI: Positive Intermediate Risk CAD Presentations: Unstable angina. CONCLUSIONS No significant CAD. Preserved EF. Mild RECOMMENDATIONS Outpatient 2d echo to evaluate aortic valve DESCRIPTION OF PROCEDURE The patient arrived to the procedure lab. The risks and benefits of the procedure as well as a full d escription of our services here and current unavailability of surgical backup were fully explained to the patient and/or their significant other prior to the catheterization. The Timeout was completed, verifying the correct patient and procedure. The patient's procedural site was prepped and draped in the usual fashion. Local anesthetic was given subcutaneously to right radial region with Lidocaine 2% . Using a modified Seldinger technique, arterial access was obtained via the right radial artery, a 6 Fr sheath was inserted. Left Coronary Artery selective angiography was performed in multiple views u sing a 5 Fr. JL3.5 catheter. Right Coronary Artery selective angiography was then performed in multip le views using a 5 Fr. JR 4 catheter. Left Ventriculography was performed in MONSON projection using a 5 Fr. JR4 cath.. LV to AO pullback pressures were then recorded.The arterial sheath was pulled and a TR Band was applied for hemostasis CORONARY ANGIOGRAPHY DOMINANCE: Right Dominant LEFT HEART ASSESSMENT Left Ventricular Ejection Fraction: by LV Gram 60 % Normal LV wall motion LEFT MAIN: No significant disease noted LEFT ANTERIOR DESCENDING ARTERY: Mild luminal irregularities CIRCUMFLEX ARTERY: No significant disease noted RIGHT CORONARY ARTERY: No significant disease noted VALVE FINDINGS: Aortic Valve Stenosis - mild No Mitral Insufficency COMPLICATIONS No Complications PROCEDURE MEDICATIONS Fentanyl 50 mcg IV Versed 1 mg IV Oxygen: 2 L/min via nasal cannula Heparin given IA 07/09/2020 14:08:12 Verapamil 2.5mg, Ntg 100mcgs, 3000 units of Heparin given IA 07/09/2020 14:08:12 SUMMARY OF HEMODYNAMIC DATA Time AIR REST ECG 13:51:02 AO 115/77 (95) SA 14:08:26 LV 163/-2, 17 14:17:04 LV 161/-3, 15 14:17:10 LV 162/-3, 16 14:18:06 LVp 165/-4, 18 14:18:13 AOp 147/79 (106) 14:18:18 AO 144/79 (105) 14:18:21 Signed By Selina Humphrey MD On 07/09/2020 14:57:32 Selina Humphrey MD
[2020-07-09] MEDS: 0.9% Normal Saline 1,000 ML 100 ML IV (15:06)
[2020-07-09] MEDS: Carvedilol 6.25 MG Tablet PO (16:37)
[2020-07-09] MEDS: Gabapentin 300 MG Capsule PO (16:38)
[2020-07-09 16:45] LABS: Bedside Glucose 108 mg/dL (70-110)
== END 2020-07-09 14:38 | disposition home or self-care (01) ==
LOC: ED 14:43 → PCU 14:50
PROVIDERS: Admitting Provider Internal Medicine; Emergency Provider Emergency Medicine
DX: R07.89 Other chest pain (principal); I16.0 Hypertensive urgency; R06.02 Shortness of breath; D69.6 Thrombocytopenia, unspecified; E78.5 Hyperlipidemia, unspecified; F41.9 Anxiety disorder, unspecified; F32.9 Major depressive disorder, single episode, unspecified; I10 Essential (primary) hypertension; E11.42 Type 2 diabetes mellitus with diabetic polyneuropathy; E55.9 Vitamin D deficiency, unspecified; Z79.899 Other long term (current) drug therapy; Z79.4 Long term (current) use of insulin; Z79.82 Long term (current) use of aspirin; Z87.891 Personal history of nicotine dependence; I35.0 Nonrheumatic aortic (valve) stenosis
CPT/HCPCS: 36415; 71045; 78452; 80048; 80053; 82962; 84484; 85025; 93005; 93017; 93458; 96360; 96361; 97802; 99152; 99153; 99218; 99285; A9500; J7030; J7040; Q9967; A4216; C1769; C1894; G0378; J2785

== ENCOUNTER 2021-07-18 16:00 | Outpatient (RCR) | payer OTHER, SELFPAY ==
[2020-07-08 15:55] VITALS: BMI 31.6
--- NOTE | 2021-03-30 18:00 | HP.PTEVAL_ITS ---
Patient's Visit Information DAMON WYLIE is a 66 year old M referred to Physical Therapy by CHAIM CHAVEZ with a diagnosis of R hip pain. Date of Evaluation: 03/30/21 Physical Therapist: Santos Powell DPT - Visit Plan Frequency: 2x /Week Duration: 7 weeks Plan: Start with hip strengthening and AROM in aquatic setting. Progress as tolerated. Work on progressing gait pattern as well. - Subjective Pt. is here today for his initial evaluation with diagnosis of R hip pain after falling at [employer] ~6 weeks ago. He reports having increased R hip pain after falling on to a wooden palate as he was lifting boxes. Pt reports having difficulty getting up. He did go to [facility]. He had an MRI for abdominal pain (no issues), he also had an xray of B hips with no acute fracture. PMH: R hip ORIF, R partial foot amputation, diabetes, reports some difficulty with substance abuse (he did not ellaborate), increased BP. After his ORIF (~3 years ago) he had a secondary fracture resulting in bed rest for a large amount of time. He report new pain since falling. Increases pain: walking, standing, movement of R LE. Decreases symptoms: sitting, sleeping, ice. Pt. is having trouble walking and would like to reduce pain in order to get back to walking with decreased symptoms. - Pain R hip Pain Intensity (Out of 10): 7 Pain Intensity Range: 6, 9 - Objective POSTURE: Pt. has anterior pelvic tilt, increased L wt. shifting (corrected with Vcing). Increased lumbar lordosis. PALPATION: Pt. has increased pain with pa lpation of R greater trochanter. Slight pain at gluteal region. NEURO: Pt. has decreased sensation at distal BLEs, worse on R side. (stocking pattern). ROM: R hip: flexion 90deg increase NW, abd 30deg increase NW, ER at 90deg 10deg increase NW, IR at 90deg 10deg increase NW, HS 45deg increase NW. MMT: RLE- ankle 5/5 throughout; knee ext 5-/5 increase NW, flexion 4/5 increase NW; hip- flexion 3+/5, ext 4/5, abd 4-/5 increase NW, ER 3/5 NW, IR 3/5 increase NW. GAIT: Pt. ambulates without AD, but does reach out for loredo and external balance aides when available. Pt. has antalgic pattern during R stance phase, no trendelumberg. Pt. tends to advance RLE with hip adductors. Increased pain during stance phase. STAIRS: step to pattern, pt. attempts to only load LLE during ascending and descending, increased pain during any loading of RLE on stairs. - Goals Goal 1:: LTG: Pt. to be I with HEP. Goal Time Frame: 4-6 Weeks Goal 2:: LTG: Pt. to ambulate without AD with improved gait pattern up to 1000' with 0-2/10 pain in R hip. Goal Time Frame: 4-6 Weeks Goal 3:: STG: pt. to sleep throughout the night without increase in symptoms. Goal Time Frame: 2-4 Weeks Goal 4:: LTG: Pt. to have increased RLE strength by 1/2 grade of all effected musculature. Goal Time Frame: 4-6 Weeks Goal 5:: LTG: Pt. to have increased ROM of R hip by 25% in all directions without increase in symptoms. Goal Time Frame: 2-4 Weeks - Rehabilitation Potential Physical Therapy Diagnosis: Pt. has signs and symptoms consistent of R hip pain. He had very limited hip ROM, especially into ER/IR motions. He would benefit from PT to work on strengthening of glutes, quads, HS and hip abductors to increase stability with gait and functional mobility. Start in aquatic setting to complete with increased tolerance. Rehabilitation Potential: Good - Anticipated Interventions Patient/Client Instruction: Educate patient on: Condition, Plan of Care, Risk Factors, Benefits of Fitness Program For the Purpose of:: To improve decision making, To facilitate caregiver knowledge, To improve self management, To prevent re-injury, To improve ability to perform tasks related to life management Therapeutic Exercise to Include: Strength training, Power training, Endurance training, Body mechanics, Postural training, Flexibilty training, Gait and locomotor training, In an aquatic setting, Active ROM, Dynamic Lumbar Stabilization For the Purpose of:: To decrease pain, To increase ROM, To improve nutrient delivery to tissue, To increase oxygenation perfusion, To improve muscle pe rformance and motor function, To improve ability to perform ADL's, To improve gait and locomotor functions, To improve health of tissue, To increase flexibility/ROM, To improve endurance, To improve balance, To improve safety with gait Thank you for the opportunity to evaluate your patient. For Medicare and Medicare HMO plans, please review the plan of care and approve it. It will need to be FAXED BACK to us at [phone] for Medicare purposes. For Medicare only, by signing this I certify the plan of care. Please let me know if there are questions or concerns regarding this plan of care. Physician Signature: Date:
--- NOTE | 2021-05-16 14:24 | HP.PTREVAL_ITS ---
CHAIM SCOTT, It has been my pleasure to treat DAMON WYLIE over the last 8 visits for R hip pain. Please see the progress note below for an update on the physical therapy plan of care! Subjective: Pt. is here today for his follow up. Pt. reports falling, tripping over his friend and fell on his side on the curb. Resulting in ribs fractures. R sided. Pt. reports he is doing better, but now feels like he has taken steps back. He is planning to have R total hip arthroplasty in early next year. Objective/Function: ROM: R hip: flexion 70deg, abd 30deg, IR 8deg, ER 20deg increase NW. Tight HS and hip flexors bilaterally. Pt. reports being able to sleep better, but not fully better. GAIT: ambulate with cane, with decreased carmen p length and decreased tempo. Without cane has increased R drop off on R hip and increased lateral hip sway. Pain during R stance. STAIRS: step to pattern, with B HR loading LLE only. MMT: R knee- 5/5 throughout; hip- flexion 4/5, abd 4-/5, ext 4-/5. He reports no recent falls, since injury. Plan Plan: Start with hip strengthening and AROM in aquatic setting. Progress as tolerated. Work on progressing gait pattern as well. Resume aquatic therapy after fall. Be aware of R rib fractures that are healing. Balance/Gait/Functional tests - Balance/Special Test Scores Lower Extremity Functional Score: 24 Goals Goal 1:: LTG: Pt. to be I with HEP. Goal Time Frame: 4-6 Weeks Goal Progress: Progressing Goal 2:: LTG: Pt. to ambulate without AD with improved gait pattern up to 1000' with 0-2/10 pain in R hip. Goal Time Frame: 4-6 Weeks Goal Progress: Progressing Goal 3:: STG: pt. to sleep throughout the night without increase in symptoms. Goal Time Frame: 2-4 Weeks Goal Progress: Progressing Goal 4:: LTG: Pt. to have increased RLE strength by 1/2 grade of all effected musculature. Goal Time Frame: 4-6 Weeks Goal Progress: Progressing Goal 5:: LTG: Pt. to have increased ROM of R hip by 25% in all directions without increase in symptoms. Goal Time Frame: 2-4 Weeks Goal Progress: Not Progressing Anticipated Interventions Patient/Client Instruction: Educate patient on: Condition, Plan of Care, Risk Factors, Benefits of Fitness Program For the Purpose of:: To improve decision making, To facilitate caregiver knowledge, To improve self management, To prevent re-injury, To improve ability to perform tasks related to life management Therapeutic Exercise to Include: Strength training, Power training, Endurance training, Body mechanics, Postural training, Flexibilty training, Gait and locomotor training, In an aquatic setting, Active ROM, Dynamic Lumbar Stabilization For the Purpose of:: To decrease pain, To increase ROM, To improve nutrient delivery to tissue, To increase oxygenation perfusion, To improve muscle performance and motor function, To improve ability to perform ADL's, To improve gait and locomotor functions, To improve health of tissue, To increase flexibil ity/ROM, To improve endurance, To improve balance, To improve safety with gait Please do not hesitate to contact me at [phone] by phone or if you have questions or concerns regarding this new plan of care! Sincerely, Santos Powell DPT
--- NOTE | 2021-07-18 17:40 | HP.PTDCSUM ---
It has been my pleasure to treat DAMON WYLIE referred by CHAIM CHAVEZ, with the diagnosis of R hip pain for a total of 14 visit(s). Discharge Date: 07/18/21 Please see the following information for a summary of their discharge status. Subjective: Pt. reports overall doing okay. Pt. is still having R hip pain 05/17. Pt. reports having good results with aquatic therapy. He plans to continue doing aquatic exercises on his own through [employer] sne[employer]. He arrives today walking well without use of cane. He reports usually having it with him, but does not always use. R hip Pain Intensity (Out of 10): 8 % Improvement: 50 Objective/Function: ROM: R hip: flexion 100deg mild increase NW, IR 10deg increase NW, ext 10deg NE, ER 60deg (tight). MMT: RLE: ankle and knee 5/5 throughout; hip- flexion 4/5, abd 4/5, ext 4+/5. GAIT: Pt. is able to ambulate with and without cane. Improved stability with cane. He still has pain with loading RLE, but reports slight improvement with tolerance. He has an aquatic exercise program that he is independent with and plans to complete on his own in the gym. Goal 1:: LTG: Pt. to be I with HEP. Goal Progress: Goal Met Goal 2:: LTG: Pt. to ambulate without AD with improved gait pattern up to 1000' with 0-2/10 pain in R hip. Goal Progress: Progressing Goal 3:: STG: pt. to sleep throughout the night without increase in symptoms. Goal Progress: Goal Met Goal 4:: LTG: Pt. to have increased RLE strength by 1/2 grade of all effected musculature. Goal Progress: Progressing Goal 5:: LTG: Pt. to have increased ROM of R hip by 25% in all directions without increase in symptoms. Goal Progress: Progressing Plan: Pt. to be Dc to HEP with focus on aquatic exercises at this point in time. Discharge Comments: Pt. was treated in aquatic setting for both strengthening and ROM his R hip. Overall he is doing well, but is still limited in both fashions. He has an appropriate aquatic program working on hip ROM and strength as well as core stability. He will be DC to I program at this point in time. If there are questions or concerns regarding this patient's physical therapy, please feel free to call me at [phone]. Thank you for the referral of this patient. Sincerely, Santos Powell, TAYLAT Balance/Gait/Functional tests - Balance/Special Test Scores Lower Extremity Functional Score: 32
== END 2021-07-18 19:00 | disposition home or self-care (01) ==
LOC: PT 16:00
DX: Z47.89 Encounter for other orthopedic aftercare (principal); M25.551 Pain in right hip
CPT/HCPCS: 97113; 97161; 97164

== ENCOUNTER 2021-09-15 15:13 | Emergency (ER) | payer OTHER, SELFPAY ==
[2021-09-15 15:13] VITALS: BP 144/89; PULSE 94; RESP 18; TEMP 35.6; O2SAT 99; BMI 33.0
--- NOTE | 2021-09-15 16:03 | EKG12_ITS ---
Test Reason : FALL Blood Pressure : / mmHG Vent. Rate : 091 BPM Atrial Rate : 091 BPM P-R Int : 178 ms QRS Dur : 136 ms QT Int : 388 ms P-R-T Axes : 034 -55 027 degrees QTc Int : 477 ms Sinus rhythm with Premature atrial complexes Right bundle branch block Left anterior fascicular block Bifascicular block Abnormal ECG Confirmed by FADI RECINOS, ARLYN ([id number]), communications editor WILLIAM CAST ([id number]) on 09/16/2021 11:35:30 AM Referred By: Confirmed By:ARLYN APONTE MD
[2021-09-15 16:50] LABS: Absolute Lymphocyte Count 0.66 X10^3/uL (0.83-4.51); Absolute Neutrophil Count 2.9 X10^3/uL (2.0-7.7); Basophil# 0.02 X10^3/uL; Basophil% 0.5 % (0-1); Eosinophil# 0.16 X10^3/uL; Eosinophils% 3.9 % (0-5); Hematocrit 41.9 % (40-54); Hemoglobin 13.8 g/dL (13.0-16.5); Lymphocyte # 0.66 X10^3/ul (0.83-4.51); Lymphocyte % 16.1 % (19-41); Mean Corp Hgb Conc 32.9 g/dL (32-36); Mean Corpuscular Hgb 29.2 pg (27.0-32.0); Mean Corpuscular Volume 88.6 fL (80-94); Mean Platelet Vol. 10.7 fl (6.2-12.0); Monocyte# 0.35 X10^3/uL; Monocyte% 8.6 % (0-10); NRBC Flagged by Analyzer 0 % (0-5); Neutrophil # 2.89 X10^3/uL (2.7-7.7); Neutrophil % 70.7 % (47-70); Platelet Count 124 K/mm3 (150-450); RBC Distribution Width CV 12.8 % (11.6-14.6); RBC Distribution Width SD 41.9 fl (35.1-43.9); Red Blood Count 4.73 M/mm3 (4.6-6.2); White Blood Count 4.1 K/mm3 (4.4-11.0)
[2021-09-15 17:05] LABS: Anion Gap 8 (5-15); BUN 18 mg/dL (7-18); BUN/Creat Ratio 20.4 RATIO (10-20); Calcium,Total 9.4 mg/dL (8.5-10.1); Chloride 106 mmol/L (98-107); Creatinine, Serum 0.88 mg/dL (0.70-1.30); EST Glomerular Filtration Rate 92 mL/min (>60); Est Glom Filt Rate - Afr Amer 111 mL/min (>60); Estimated Creatinine Clearance 93.32 ml/min; Glucose 112 mg/dL (74-106); Sodium Level 140 mmol/L (136-145)
--- NOTE | 2021-09-15 17:25 | EX.ED.DYSGE1 ---
HPI History of Present Illness Chief Complaint: Dizziness Informant: patient Onset/Context/Timing Onset: Days Timing: Intermittent Current Severity: Mild Maximum Severity: Moderate Narrative Narrative: Patient presents secondary to dizziness. He states that he had a mechanical fall 2 days ago and hit his head. No loss of consciousness. He states when he lays down or first stands up in the morning he will feel a spinning sensation for a minute or 2. He talked to his doctor and was sent in for a CT scan of his head. He reports having occasional piercing headache to the left posterior parietal area, but states that was present even before his fall. It is not gotten any worse. He denies vision change or nausea/vomiting. He denies neck pain or any other injury from the fall. [facility] Medical History Depression Hepatitis C Hyperlipidemia Hypertension Type 2 diabetes mellitus with diabetic polyneuropathy Home Medications melatonin 6 mg PO QHS PRN 04/30/17 [History Last Taken 07/07/20] carvedilol 3.125 mg PO BID 08/18/19 [History Last Taken 07/08/20] cholecalciferol (vitamin D3) 2,000 unit PO DAILY 08/18/19 [History Last Taken 07/08/20] gabapentin 300 mg PO TID 08/18/19 [History Last Taken 07/08/20] metformin 1,000 mg PO BID 08/18/19 [History Last Taken 07/08/20] Emollient Combination No.72 [Eucerin Intensive Repair] 1 applic TOPICAL 0600,2200 07/08/20 [History Last Taken Unknown] aspirin 81 mg PO DAILY@0800 07/08/20 [History Last Taken 07/08/20] insulin glargine 28 units SUBCUT QHS 07/08/20 [History Last Taken 07/07/20] liraglutide 1.2 mg SQ DAILY 07/08/20 [History Last Taken 07/08/20] naproxen 500 mg PO BID 07/08/20 [History Last Taken 07/08/20] Allergy/AdvReac Type Severity Reaction Status Date / Time morphine AdvReac Gets mean Verified 09/15/21 15:15 Social History Smoking Status: Former smoker ROS ROS ED Constitutional Constitutional ED: Denies chills or fever(s) Eyes Eyes: Denies change in vision ENT ENT ED: Denies sore throat Cardiovascular Cardiovascular: Denies chest pain Respiratory/Chest Respiratory/Chest: Denies cough or dyspnea Gastrointestinal Gastrointestinal: Denies abdominal pain, diarrhea, nausea or vomiting Genitourinary Genitourinary ED: Denies dysuria Musculoskeletal Musculoskeletal: Denies back pain or neck pain Integumentary Denies rash Neurologic Neurologic: Reports headache(s); Denies weakness Allergic/Immunologic Allergic/Immunologic ED: Denies urticaria EXAM Physical Exam Const Vital Signs: 09/15/21 15:13 09/15/21 17:48 Temperature 96.1 F L Temperature Source Temporal Pulse Rate 94 Respiratory Rate 18 Respiratory Effort Normal Non-Labored Respiratory Pattern Normal Blood Pressure 144/89 H Blood Pressure Mean 107 Pulse Ox 99 Oxygen Delivery Method Room Air Positive well nourished and well developed General Appearance ED: well developed HEENT Reports moist mucous membranes Eyes PERRL and EOMs intact bilaterally Neck supple Neck Narrative: No C-spine tenderness. Resp normal respiratory effort and clear to auscultation bilaterally Cardio regular rate and regular rhythm GI normal to inspection, nondistended, normoactive bowel sounds and non-tender Palpation: soft Extremity normal to inspection Neuro oriented x3 Neuro Narrative: No focal neuro deficits. Sensorium / Orientation: alert Skin no rashes or lesions noted MDM MDM MDM Narrative Medical decision making narrative: Lab work and EKG was obtained per nursing protocol prior to my evaluation. Head CT is ordered. Lab Data Attestation: I reviewed the patient's lab results. Labs: Laboratory Results - last 24 hr 09/15/21 09/15/21 16:10 16:10 WBC 4.1 L RBC 4.73 Hgb 13.8 Hct 41.9 MCV 88.6 MCH 29.2 MCHC 32.9 RDW Std Deviation 41.9 RDW Coeff of Hakeem 12.8 Plt Count 124 L MPV 10.7 Immature Gran % (Auto) 0.200 Neut % (Auto) 70.7 H Lymph % (Auto) 16.1 L [place] % (Auto) 8.6 Eos % (Auto) 3.9 Baso % (Auto) 0.5 Absolute Neuts (auto) 2.9 Absolute Lymphs (auto) 0.66 L Nucleated RBC % 0 Sodium 140 Potassium 4.0 Chloride 106 Carbon Dioxide 26.0 Anion Gap 8 BUN 18 Creatinine 0.88 Estim Creat Clear Calc 93.32 Est GFR (MDRD) Af Amer 111 Est GFR (MDRD) Non-Af 92 BUN/Creatinine Ratio 20.4 H Glucose 112 H Calcium 9.4 Radiography Diagnostic Testing: Clinical Impression(s) from Imaging Studies Brain CT 09/15/21 17:40 IMPRESSION: There are no acute intracranial findings. Electronically Signed: Nathan Lee MD at 17:55 EST , Service support , EKG Initial EKG: Attestation: I personally reviewed and interpreted this EKG as follows: Interpretation: Sinus Rhythm (Sinus at 91 with bifascicular block. No acute ischemia.) Treatment and Re-Evaluation Comments:: Test results unremarkable. CT head normal. Patient is reassured with findings will be discharged home with supportive care. Discharge Plan Triage Chief Complaint: Dizziness ED Provider: Alexus Hyde Dx/Rx/DC Orders Clinical Impression: Dizziness Instructions: ED Dizziness, Uncertain Cause, ED Head Injury (Adult) Prescriptions: No Action melatonin 3 MG tablet 6 mg PO QHS PRN (Reason: Sleep) RF: 0 carvedilol 3.125 MG tablet 3.125 mg PO BID RF: 0 metformin 1,000 MG tablet 1,000 mg PO BID RF: 0 gabapentin 300 MG capsule 300 mg PO TID RF: 0 cholecalciferol (vitamin D3) 2,000 UNIT capsule 2,000 unit PO DAILY RF: 0 aspirin 81 MG tablet 81 mg PO DAILY@0800 RF: 0 naproxen 500 MG tablet 500 mg PO BID RF: 0 liraglutide 0.6 MG/0.1 ML pen injector 1.2 mg SQ DAILY RF: 0 insulin glargine 100 UNITS/ML insulin pen 28 units subcut QHS RF: 0 Emollient Combination No.72 [Eucerin Intensive Repair] 1 APPLIC lotion 1 applic topical 0600,2200 RF: 0 [facility] [Primary [facility] Provider] - 1 Week if not improving Disposition Disposition: Home, Self Care
--- NOTE | 2021-09-15 17:40 | CT_ITS ---
STUDY: CT BRAIN WITHOUT CONTRAST REASON FOR EXAM: Male, 66 years old. fall, dizzy TECHNIQUE: Transaxial CT imaging of the brain was performed without administration of intravenous contrast material. Individualized dose optimization techniques were used for this CT. COMPARISON: 08.10.18 FINDINGS: Normal calvarium. Normal soft tissues. Normal size ventricles and extra-axial spaces for the patient''s age. There are areas of decreased attenuation within the white matter tracts of the supratentorial brain, consistent with microvascular disease changes. Normal basal ganglia and thalami. Normal brainstem. Normal cerebellum. There is no intracranial hemorrhage. There are no findings of an acute ischemic infarction. Normal visualized paranasal sinuses. ASPECTS 10 CT/Brain/Head without Contrast IMPRESSION: There are no acute intracranial findings. Electronically Signed: Nathan Lee MD at 17:55 EST , Service support ,
--- NOTE | 2021-09-15 17:45 | ED.RN ---
per dr veliz. no orders except head CT at this time.
[2021-09-15 18:16] VITALS: BP 149/90; PULSE 90; RESP 16; O2SAT 95
== END 2021-09-15 18:17 | disposition home or self-care (01) ==
PROVIDERS: Emergency Provider Emergency Medicine
DX: R42 Dizziness and giddiness (principal); I45.2 Bifascicular block; Z87.891 Personal history of nicotine dependence; E11.42 Type 2 diabetes mellitus with diabetic polyneuropathy; F32.A Depression, unspecified; E78.5 Hyperlipidemia, unspecified; I10 Essential (primary) hypertension; Z79.1 Long term (current) use of non-steroidal anti-inflammatories (NSAID); Z79.82 Long term (current) use of aspirin
CPT/HCPCS: 70450; 80048; 85025; 93005; 99283; A4216

== ENCOUNTER 2021-10-13 12:00 | Emergency (ER) | payer OTHER, SELFPAY ==
[2021-10-13] VITALS (7 sets, daily range): BP systolic 141–185; BP diastolic 92–116; PULSE 81–110; RESP 15–19; TEMP 36.2; O2SAT 96–100; BMI 32.8
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
[2021-10-13 13:24] LABS: Absolute Neutrophil Count 3.3 X10^3/uL (2.0-7.7); Basophil# 0.01 X10^3/uL; Basophil% 0.2 % (0-1); Eosinophil# 0.02 X10^3/uL; Eosinophils% 0.5 % (0-5); Hematocrit 44.3 % (40-54); Hemoglobin 14.7 g/dL (13.0-16.5); Lymphocyte % 14.1 % (19-41); Mean Corp Hgb Conc 33.2 g/dL (32-36); Mean Corpuscular Volume 87.4 fL (80-94); Mean Platelet Vol. 9.3 fl (6.2-12.0); Monocyte# 0.31 X10^3/uL; Monocyte% 7.3 % (0-10); NRBC Flagged by Analyzer 0 % (0-5); Neutrophil % 77.7 % (47-70); POSITIVE DIFFERENTIAL YES; Platelet Count 100 K/mm3 (150-450); RBC Distribution Width SD 41.3 fl (35.1-43.9); Red Blood Count 5.07 M/mm3 (4.6-6.2); White Blood Count 4.3 K/mm3 (4.4-11.0)
[2021-10-13 13:25] LABS: Differential Indicated SCAN CRITERIA MET
[2021-10-13 13:40] LABS: Anion Gap 6 (5-15); BUN 18 mg/dL (7-18); BUN/Creat Ratio 19.8 RATIO (10-20); Calcium,Total 9.4 mg/dL (8.5-10.1); Chloride 108 mmol/L (98-107); Creatinine, Serum 0.91 mg/dL (0.70-1.30); EST Glomerular Filtration Rate 88 mL/min (>60); Est Glom Filt Rate - Afr Amer 107 mL/min (>60); Estimated Creatinine Clearance 90.24 ml/min; Glucose 135 mg/dL (74-106); Potassium 4.1 mmol/L (3.5-5.1); Sodium Level 139 mmol/L (136-145)
[2021-10-13 13:42] LABS: Differential Comment SCANNED
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
--- NOTE | 2021-10-13 13:44 | CM.ED ---
SW Note SW called [facility] transfer center and left voice mail requesting transfer of patient to VA psych. Plan: Inpatient psych Mirna ARCINIEGA
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
--- NOTE | 2021-10-13 14:13 | ED.RN ---
pt rude and uncooperative. complaining that he has been asking for food for 3 hours because he is a diabetic. states that he needs to keep his sugar up. this RN and officer Luis M brought food and drink in, pt refused because it's not the right food, i dont want my sugar to go up. pt c/o not having a call light to call for help getting clothes off. call light is not in pt room d/t pt being here for mental health.
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
[2021-10-13 14:20] LABS: Amphetamine Urine VISTA NEGATIVE (<1000 ng/mL); Barbiturate Urine VISTA NEGATIVE (< 200 ng/mL); Benzodiazepine Urine VISTA NEGATIVE (< 200 ng/mL); Cocaine Urine VISTA NEGATIVE (< 300 ng/mL); Ecstacy Urine VISTA NEGATIVE (< 500 ng/mL); Methadone Urine VISTA NEGATIVE (< 300 ng/mL); PCP Urine VISTA NEGATIVE (< 25 ng/mL); THC Urine VISTA NEGATIVE (< 50 ng/mL); Vista UDS pH Range 6
[2021-10-13 14:20] LABS: Alcohol, Blood (Medical)-Serum < 3.0 mg/dL
--- NOTE | 2021-10-13 14:21 | ED.RN ---
pt offered a blanket, i dont need a blanket.
--- NOTE | 2021-10-13 14:30 | ED.RN ---
pt disrespectful to staff and officer Luis M.
--- NOTE | 2021-10-13 14:41 | CM.ED ---
SW Note Sw called [facility] Transfer [facility] at [facility] and left voice mail regarding psych transfer to [facility]. Message left on 10/13/21 at 2:43pm Mirna ARCINIEGA
--- NOTE | 2021-10-13 14:44 | ED.RN ---
this rn had placed an order with dietary d/t pt refusing food that this RN and Officer Luis M gave to pt stating that he couldnt eat that food because it's not good for diabetics. Tray from dietary arrived, this RN took to pt i dont want that. pt refused dietary tray. this RN did however notice that the pt ate the meat and cheese off one of the sandwiches that the pt initially refused to eat..
--- NOTE | 2021-10-13 14:45 | CM.ED ---
Addendum entered by Mirna Louis 10/13/21 14:55: Patient covid negative. MICHELL faxed referral packet to [place] [facility], [facility] and [facility] for their review. Mirna ARCINIEGA Original Note: MICHELL Note MICHELL called Aicha at [facility]. Aicha said that she is unaware of any psych placements taking covid positive. [facility] has backlog of 20 currently for [facility]. MICHELL called [facility]. They are not taking covid positive patients. MICHELL called [facility]. They are not taking covid positive patients. Mirna ARCINIEGA
--- NOTE | 2021-10-13 15:35 | CM.ED ---
Addendum entered by Mirna Louis 10/13/21 16:36: MICHELL updated Luz Maria about patient's blood pressure and advised that patient runs high.MICHELL also explained that this inspector automatic typewriter got a VA referral number. Luz Maria said we have a process here where we do this within 72 hours. MICHELL faxed vital signs to [facility]. Patient reported to RN that he always runs high and that he has not been taking his medication as his is not there and she doles out the medicine. Mirna ACRINIEGA Addendum entered by Mirna Louis 10/13/21 16:07: MICHELL faxed referral packet to [facility] transfer line. MICHELL received phone call from Luz Maria at [facility]. Luz Maria inquired as to the patient's current status. Luz Maria requested urinalysis and updated blood pressure reading. Luz Maria said that they did all the insurance verification so they are good to go in regards to insurance and VA notification. MICHELL called [facility] and spoke to Bambi. Referral ID [id number]. Patient authorized to go to outside setting and email to follow. Mirna ARCINIEGA Original Note: MICHELL Note MICHELL called [facility] and asked to speak to person at the transfer center. MICHELL was transferred to voice mail, where this inspector automatic typewriter has already left 2 messages. MICHELL faxed referral to VA Mirna ARCINIEGA
[2021-10-13 16:48] LABS: Bacteria 0 SEEN /hpf (None Seen); Mucous, Urine 0 SEEN /hpf (<or=2+); Red Blood Cells-Urine 0 SEEN /hpf (0-5); Squamous Epithelial Cells - UA 0 SEEN /hpf (0-5); White Blood Cells 0 SEEN /hpf (0-5)
--- NOTE | 2021-10-13 16:58 | ED.RN ---
PT WAVING HIS FULL URINAL BACK AND FORTH TO GET STAFF ATTENTION. WHEN THIS NURSE WENT INTO THE ROOM, THE PT IS STATING I NEED TO TALK TO A OIL WELL ENGINEER ABOUT THE THINGS THESE PEOPLE ARE DOING TO ME. THEY THREATENED TO PUT A URINARY CATHETER IN. I'M [place] SURE THEY ARE FREE. PT APPEARS TO BE ON THE PHONE WITH [employer]. THIS NURSE TOOK THE FULL URINAL OUT OF THE ROOM AND DISPOSED OF IT
[2021-10-13 17:16] LABS: Color, Urine Yellow (Yellow); Glucose, Dipstick Normal (Normal); Ketone-Dipstick Negative (Negative); Leukocyte Esterase-Dipstick Negative /ul (Negative); Nitrite-Dipstick Negative (Negative); Occult Blood-Urine 10 /ul (Negative); Protein-Dipstick 100 mg/dl (Negative); Urine Bilirubin Dipstick Negative (Negative); Urine Clarity Clear (Clear); Urine Urobilinogen Normal (Normal)
--- NOTE | 2021-10-13 17:33 | EKG12_ITS ---
Test Reason : PSYCH CLEARANCE Blood Pressure : / mmHG Vent. Rate : 104 BPM Atrial Rate : 104 BPM P-R Int : 170 ms QRS Dur : 132 ms QT Int : 374 ms P-R-T Axes : 043 -59 037 degrees QTc Int : 491 ms Sinus tachycardia Right bundle branch block Left anterior fascicular block Bifascicular block Septal infarct , age undetermined Abnormal ECG Confirmed by FADI RECINOS, ARLYN ([id number]), graphic editor DOUGLAS EMMANUEL ([id number]) on 10/17/2021 10:32:53 AM Referred By: TALA Confirmed By:ARLYN APONTE MD
--- NOTE | 2021-10-13 17:47 | CM.ED ---
Addendum entered by Mirna Louis 10/13/21 18:44: MICHELL spoke to [facility] [employer] sales representative Cindi who said that their provider had agreed to accept patient even with his higher blood pressure. Cindi said that the provider said that they have other individuals who also are not willing to take BP medication. Original Note: MICHELL Note MICHELL and RN went into the patient's room. He wants to go to the [facility]. SW explained that we are looking for placement for patient and [facility] has not contacted this chart writer back as of this time. Patient said that he is calling [facility] in an attempt to speak to a features reporter. Patient said that he is not taking any of the medication for blood pressure the MD prescribed. Patient continues to voice behavior that is consistent with diagnosis of antisocial personality disorder. SW received call from [facility]. They accepted him. MICHELL called Tia at [facility] hotline and updated her that patient is patient is going to [facility]. MICHELL called Luz Maria at [facility] and advised that patient is not going to [facility] but [facility]. MICHELL called Transfer Center at [facility] and left voice mail message advising patient is going to [facility]. MICHELL faxed pink slip and covid screen to [facility]. Mirna ARCINIEGA
--- NOTE | 2021-10-13 17:47 | ED.RN ---
Patient becoming more agitated and continuously calling the va and news stations. Patient belongings removed and placed in valuables bag and in safe. bag number [id number].
--- NOTE | 2021-10-13 18:29 | ED.RN ---
This nurse noted that the patient appeared to be having back/leg pain and is close to falling out of the bed. Patient became agitated when this nurse attempted to help and denies any needs at this time. Patient states he needs to have a bowel movement. This nurse offered to assist the patient to the bathroom. Patient stated no I will just shit myself. sandwich, water, and warm blankets provided for the patient per his request.
--- NOTE | 2021-10-13 18:41 | CM.ED ---
Addendum entered by Mirna Louis 10/13/21 19:18: Alexus CHO scheduled transport. Transport 2-3 hours. Mirna ARCINIEGA Original Note: MICHELL Note SW called [facility] and spoke to [facility]. Accepting MD is Dr. Macias. Patient is going to adult unit. RN to RN is [phone]. MD and RN updated. Mirna ARCINIEGA
--- NOTE | 2021-10-13 19:39 | CM.ED ---
SW received email of eligibility decision for [facility] [id number] from [place] advising that patient is going to [facility] under [facility] Act Mirna ARCINIEGA
[2021-10-14 10:13] LABS: Pathologist Review Reviewed
== END 2021-10-13 21:06 ==
PROVIDERS: Emergency Provider Emergency Medicine; Visit Provider Emergency Medicine
DX: F29 Unspecified psychosis not due to a substance or known physiological condition (principal); E11.42 Type 2 diabetes mellitus with diabetic polyneuropathy; I10 Essential (primary) hypertension; E78.5 Hyperlipidemia, unspecified; F32.A Depression, unspecified; F41.9 Anxiety disorder, unspecified; R45.1 Restlessness and agitation; Z79.84 Long term (current) use of oral hypoglycemic drugs; Z79.899 Other long term (current) drug therapy; Z91.51 Personal history of suicidal behavior; Z87.891 Personal history of nicotine dependence
CPT/HCPCS: 80048; 80307; 81001; 82077; 85025; 87426; 93005; 99285

== ENCOUNTER 2021-10-30 11:12 | Emergency (ER) | payer OTHER, SELFPAY ==
[2021-10-30 11:13] VITALS: BP 135/84; PULSE 90; RESP 16; TEMP 36.7; BMI 32.7
--- NOTE | 2021-10-30 11:43 | RAD_ITS ---
STUDY: X-RAY - LEFT ANKLE REASON FOR EXAM: Male, 66 years old. pain fall trauma left ankle redness and swelling TECHNIQUE: 3 view(s) of the ankle. COMPARISON: None. FINDINGS: Normal visualized distal tibia and fibula. Normal medial and lateral malleoli. Normal tibiotalar articulation and ankle mortise. Normal visualized talus and calcaneus. The visualized subtalar, talonavicular, calcaneocuboid and tarsal articulations are normal. There is diffuse soft tissue edema. RAD/Ankle min 3 Views IMPRESSION: No acute osseous injury. Soft tissue edema. Electronically Signed: Yue Bashir MD at 13:37 EST Tel , Service support ,
--- NOTE | 2021-10-30 11:43 | EX.ED.DYSGE1 ---
HPI History of Present Illness Chief Complaint: Lower Extremity Injury Informant: patient Onset/Context/Timing Onset: Today Current Severity: Moderate Maximum Severity: Moderate Narrative Narrative: Patient presents secondary to left ankle pain. He states he fell out of bed shortly after midnight last night. He spent a couple hours trying to get himself back up into bed. He has redness and swelling with pain around his left ankle. He states earlier this morning had pain along the medial portion of his left knee but that is completely resolved. No hip pain. 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 Home Medications melatonin 6 mg PO QHS PRN 04/30/17 [History Last Taken 07/07/20] carvedilol 3.125 mg PO BID 08/18/19 [History Last Taken 07/08/20] cholecalciferol (vitamin D3) 2,000 unit PO DAILY 08/18/19 [History Last Taken 07/08/20] gabapentin 300 mg PO TID 08/18/19 [History Last Taken 07/08/20] metformin 1,000 mg PO BID 08/18/19 [History Last Taken 07/08/20] Emollient Combination No.72 [Eucerin Intensive Repair] 1 applic TOPICAL 0600,2200 07/08/20 [History Last Taken Unknown] aspirin 81 mg PO DAILY@0800 07/08/20 [History Last Taken 07/08/20] insulin glargine 28 units SUBCUT QHS 07/08/20 [History Last Taken 07/07/20] liraglutide 1.2 mg SQ DAILY 07/08/20 [History Last Taken 07/08/20] naproxen 500 mg PO BID 07/08/20 [History Last Taken 07/08/20] doxycycline monohydrate 100 mg PO BID #20 cap 10/30/21 [Rx Last Taken Unknown] Allergy/AdvReac Type Severity Reaction Status Date / Time morphine AdvReac Gets mean Verified 10/30/21 11:14 Social History Smoking Status: Former smoker ROS ROS ED Constitutional Constitutional ED: Denies chills or fever(s) Eyes Eyes: Denies change in vision ENT ENT ED: Denies sore throat Cardiovascular Cardiovascular: Denies chest pain Respiratory/Chest Respiratory/Chest: Denies cough or dyspnea Gastrointestinal Gastrointestinal: Denies abdominal pain, diarrhea, nausea or vomiting Genitourinary Genitourinary ED: Denies dysuria Musculoskeletal Musculoskeletal: Reports arthralgias; Denies back pain Integumentary Reports other Details: Left leg redness ; Denies rash Neurologic Neurologic: Denies headache(s) or weakness Allergic/Immunologic Allergic/Immunologic ED: Denies urticaria EXAM Physical Exam Const Vital Signs: 10/30/21 11:13 Temperature 98.1 F Temperature Source Temporal Pulse Rate 90 Respiratory Rate 16 Blood Pressure 135/84 H Blood Pressure Mean 101 Positive well nourished and well developed General Appearance ED: well developed HEENT Reports moist mucous membranes Eyes PERRL and EOMs intact bilaterally Neck supple Chest Wall inspection of chest normal and palpation of chest normal Resp normal respiratory effort and clear to auscultation bilaterally Cardio regular rate and regular rhythm GI non-tender Palpation: soft Extremity Extremity Narrative: Erythema and warmth of the distal aspect of the left lower leg. Mild diffuse tenderness. Few abrasions are noted over the anterior mario. No tenderness itself over the foot. Neuro oriented x3 Sensorium / Orientation: alert Psych mental status grossly normal MDM MDM MDM Narrative Medical decision making narrative: Right ankle x-rays obtained. Radiography Diagnostic Testing: Clinical Impression(s) from Imaging Studies Ankle X-Ray 10/30/21 11:43 IMPRESSION: No acute osseous injury. Soft tissue edema. Electronically Signed: Yue Bashir MD at 13:37 EST Tel , Service support , Treatment and Re-Evaluation Comments:: X-rays per my interpretation reveal no acute fracture. Patient does have significant erythema and warmth of the lower leg consistent with cellulitis. He will be treated with doxycycline. Juilán wrap applied to the leg. Discharge Plan Triage Chief Complaint: Lower Extremity Injury ED Provider: Alexus Hyde Dx/Rx/DC Orders Clinical Impression: Cellulitis Instructions: ED Cellulitis Prescriptions: New doxycycline monohydrate 100 MG capsule 100 mg PO BID Qty: 20 RF: 0 No Action melatonin 3 MG tablet 6 mg PO QHS PRN (Reason: Sleep) RF: 0 carvedilol 3.125 MG tablet 3.125 mg PO BID RF: 0 metformin 1,000 MG tablet 1,000 mg PO BID RF: 0 gabapentin 300 MG capsule 300 mg PO TID RF: 0 cholecalciferol (vitamin D3) 2,000 UNIT capsule 2,000 unit PO DAILY RF: 0 aspirin 81 MG tablet 81 mg PO DAILY@0800 RF: 0 naproxen 500 MG tablet 500 mg PO BID RF: 0 liraglutide 0.6 MG/0.1 ML pen injector 1.2 mg SQ DAILY RF: 0 insulin glargine 100 UNITS/ML insulin pen 28 units subcut QHS RF: 0 Emollient Combination No.72 [Eucerin Intensive Repair] 1 APPLIC lotion 1 applic topical 0600,2200 RF: 0 [facility] [facility]errals[facility] [Primary Care Provider] - 1 Week Disposition Disposition: Home, Self Care
[2021-10-30] MEDS: Doxycycline 100 MG CAPSULE PO (14:00)
[2021-10-30 14:02] VITALS: BP 141/89; PULSE 85; RESP 18; O2SAT 95
== END 2021-10-30 14:02 | disposition home or self-care (01) ==
PROVIDERS: Emergency Provider Emergency Medicine; Visit Provider Emergency Medicine
DX: L03.116 Cellulitis of left lower limb (principal); Z87.891 Personal history of nicotine dependence; W06.XXXA Fall from bed, initial encounter
CPT/HCPCS: 73610; 99283

== ENCOUNTER 2021-11-08 17:08 | Inpatient (IN) | payer OTHER, SELFPAY ==
[2021-11-08 17:08] VITALS: PULSE 71; RESP 18; TEMP 36.3; O2SAT 97; BMI 35.6
--- NOTE | 2021-11-08 17:28 | EDS_ITS ---
HPI History of Present Illness Chief Complaint: Cellulitis Informant: patient Onset/Context/Timing Onset: Weeks Context: Gradual Onset Current Severity: Moderate Maximum Severity: Severe Narrative Narrative: Patient presents with worsening left lower extremity cellulitis. Patient was seen by myself on October 30 after twisting his ankle. His left lower leg was erythematous and warm to the touch. He was treated with doxycycline. Patient states the erythema has gotten worse and he developed blisters with yellow fluid in them shortly after his evaluation in the ER. Erythema is now spread up to the knee with several open blisters noted on the lower extremity. He denies fever or chills. No history of blood clots. 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 Home Medications carvedilol 3.125 mg PO BID 08/18/19 [History Last Taken 07/08/20] cholecalciferol (vitamin D3) 2,000 unit PO DAILY 08/18/19 [History Last Taken 07/08/20] gabapentin 300 mg PO TID 08/18/19 [History Last Taken 07/08/20] metformin 1,000 mg PO BID 08/18/19 [History Last Taken 07/08/20] Emollient Combination No.72 [Eucerin Intensive Repair] 1 applic TOPICAL 0600,2200 07/08/20 [History Last Taken Unknown] aspirin 81 mg PO DAILY@0800 07/08/20 [History Last Taken 07/08/20] insulin glargine 28 units SUBCUT QHS 07/08/20 [History Last Taken 07/07/20] naproxen 500 mg PO BID 07/08/20 [History Last Taken 07/08/20] Allergy/AdvReac Type Severity Reaction Status Date / Time No Known Allergies Allergy Verified 11/08/21 17:16 Social History Smoking Status: Former smoker ROS ROS ED Constitutional Constitutional ED: Denies chills or fever(s) Eyes Eyes: Denies change in vision ENT ENT ED: Denies sore throat Cardiovascular Cardiovascular: Denies chest pain Respiratory/Chest Respiratory/Chest: Denies cough or dyspnea Gastrointestinal Gastrointestinal: Denies abdominal pain, diarrhea, nausea or vomiting Genitourinary Genitourinary ED: Denies dysuria Musculoskeletal Musculoskeletal: Reports arthralgias; Denies back pain Integumentary Reports rash Neurologic Neurologic: Denies headache(s) or weakness Allergic/Immunologic Allergic/Immunologic ED: Denies urticaria EXAM Physical Exam Const Vital Signs: 11/08/21 17:08 Temperature 97.4 F L Temperature Source Temporal Pulse Rate 71 Respiratory Rate 18 Pulse Ox 97 Oxygen Delivery Method Room Air Positive well nourished and well developed General Appearance ED: well developed HEENT Reports moist mucous membranes Eyes PERRL and EOMs intact bilaterally Neck supple Chest Wall inspection of chest normal and palpation of chest normal Resp normal respiratory effort and clear to auscultation bilaterally Cardio regular rate and regular rhythm GI non-tender Palpation: soft Extremity Extremity Narrative: Erythema and edema noted distal to the left knee. Multiple areas of open blister with serosanguineous drainage. No tenderness noted over the thigh. Neuro oriented x3 Sensorium / Orientation: alert MDM MDM MDM Narrative Medical decision making narrative: Patient was given morphine and Zofran for pain. Lab work and blood cultures were obtained. Venous ultrasound of the left leg obtained. Patient given a dose of Zosyn and vancomycin. Lab Data Attestation: I reviewed the patient's lab results. Labs: Laboratory Results - last 24 hr 11/08/21 11/08/21 11/08/21 17:45 17:45 17:45 WBC 9.2 RBC 4.47 L Hgb 12.8 L Hct 39.9 L MCV 89.3 MCH 28.6 MCHC 32.1 RDW Std Deviation 44.8 H RDW Coeff of Hakeem 13.6 Plt Count 231 MPV 9.1 Immature Gran % (Auto) 0.700 Neut % (Auto) 83.0 H Lymph % (Auto) 8.9 L Burnett % (Auto) 6.1 Eos % (Auto) 1.0 Baso % (Auto) 0.3 Absolute Neuts (auto) 7.7 Absolute Lymphs (auto) 0.82 L Nucleated RBC % 0 Sodium 135 L Potassium 4.7 Chloride 104 Carbon Dioxide 26.0 Anion Gap 5 BUN 16 Creatinine 0.88 Estim Creat Clear Calc 85.26 Est GFR (MDRD) Af Amer 111 Est GFR (MDRD) Non-Af 91 BUN/Creatinine Ratio 18.1 Glucose 106 Lactic Acid 1.5 Calcium 9.2 Treatment and Re-Evaluation Comments:: Lab work is unremarkable. Venous ultrasound reveals no evidence of a DVT. With patient having significant worsening of his cellulitis despite being on doxycycline he will be admitted for IV antibiotics. I will speak with the hospitalist. Discharge Plan Triage Chief Complaint: Cellulitis ED Provider: Alexus Hyde Dx/Rx/DC Orders Clinical Impression: Cellulitis Prescriptions: No Action carvedilol 3.125 MG tablet 3.125 mg PO BID RF: 0 metformin 1,000 MG tablet 1,000 mg PO BID RF: 0 gabapentin 300 MG capsule 300 mg PO TID RF: 0 cholecalciferol (vitamin D3) 2,000 UNIT capsule 2,000 unit PO DAILY RF: 0 aspirin 81 MG tablet 81 mg PO DAILY@0800 RF: 0 naproxen 500 MG tablet 500 mg PO BID RF: 0 insulin glargine 100 UNITS/ML insulin pen 28 units subcut QHS RF: 0 Emollient Combination No.72 [Eucerin Intensive Repair] 1 APPLIC lotion 1 applic topical 0600,2200 RF: 0 [facility] [facility] [Primary Care Provider] - Disposition Disposition: Acute Care Hospital [facility]
--- NOTE | 2021-11-08 17:35 | US_ITS ---
STUDY: VENOUS DOPPLER ULTRASOUND - LEFT LOWER EXTREMITY REASON FOR EXAM: Male, 66 years old. LT LEG CELLULITIS WITH PAIN TECHNIQUE: Ultrasound evaluation of the deep vein system to include laureano-scale imaging and compression was performed. Laureano-scale imaging and Doppler sonographic evaluation, including duplex spectral analysis and qualitative color flow sonography, was performed. COMPARISON: None. FINDINGS: Common Femoral Vein: Normal compression, spontaneity and augmentation. Normal color Doppler. Common Femoral Vein/Greater Saphenous Junction: Normal compression. Femoral Proximal: Normal compression. Femoral Middle: Normal compression, spontaneity and augmentation. Normal color Doppler. Femoral Distal: Normal compression. Popliteal Vein: Normal compression, spontaneity and augmentation. Normal color Doppler. Posterior Tibial Vein: Normal compression. Peroneal Vein: Normal compression. There is subcutaneous edema within the lower extremity. US/Venous Duplex Imag/Limited/Uni IMPRESSION: No demonstrated deep vein thrombosis. Subcutaneous edema. Electronically Signed: Leatha Monroy MD at 20:02 EST ,
[2021-11-08] MEDS: Ondansetron 4 MG/2 ML Vial IV ×2 (17:43→19:57)
[2021-11-08] MEDS: Morphine 4 MG/ML Syringe IV ×2 (17:43→19:57)
[2021-11-08 18:16] LABS: Absolute Lymphocyte Count 0.82 X10^3/uL (0.83-4.51); Absolute Neutrophil Count 7.7 X10^3/uL (2.0-7.7); Basophil# 0.03 X10^3/uL; Basophil% 0.3 % (0-1); Eosinophil# 0.09 X10^3/uL; Hematocrit 39.9 % (40-54); Hemoglobin 12.8 g/dL (13.0-16.5); Lymphocyte # 0.82 X10^3/ul (0.83-4.51); Lymphocyte % 8.9 % (19-41); Mean Corp Hgb Conc 32.1 g/dL (32-36); Mean Corpuscular Hgb 28.6 pg (27.0-32.0); Mean Corpuscular Volume 89.3 fL (80-94); Mean Platelet Vol. 9.1 fl (6.2-12.0); Monocyte# 0.56 X10^3/uL; Monocyte% 6.1 % (0-10); NRBC Flagged by Analyzer 0 % (0-5); Neutrophil # 7.67 X10^3/uL (2.7-7.7); Platelet Count 231 K/mm3 (150-450); RBC Distribution Width CV 13.6 % (11.6-14.6); RBC Distribution Width SD 44.8 fl (35.1-43.9); Red Blood Count 4.47 M/mm3 (4.6-6.2); White Blood Count 9.2 K/mm3 (4.4-11.0)
[2021-11-08 18:34] LABS: Anion Gap 5 (5-15); BUN 16 mg/dL (7-18); BUN/Creat Ratio 18.1 RATIO (10-20); Calcium,Total 9.2 mg/dL (8.5-10.1); Chloride 104 mmol/L (98-107); Creatinine, Serum 0.88 mg/dL (0.70-1.30); EST Glomerular Filtration Rate 91 mL/min (>60); Est Glom Filt Rate - Afr Amer 111 mL/min (>60); Estimated Creatinine Clearance 85.26 ml/min; Glucose 106 mg/dL (74-106); Potassium 4.7 mmol/L (3.5-5.1); Sodium Level 135 mmol/L (136-145)
[2021-11-08 18:36] LABS: Lactic Acid 1.5 mmol/L (0.4-1.9)
[2021-11-08 20:04] VITALS: BP 138/69; PULSE 111; RESP 18; TEMP 36.4; O2SAT 99
--- NOTE | 2021-11-08 20:04 | HP.PCM.HOS_ITS ---
HPI - General General Date of Admission: 11/08/21 HPI Narrative DAMON WYLIE, is a 66 M with a significant history of MRSA; diabetes mellitus and with a partial amputation of right foot who presents to the emergency department with a worsening erythema of his left foot. She reports that on Sunday, 29 April 2022 she slid out of his bed. He reported that it took him some time to be able to get out of the bed and subsequently developed a carpet burn. He had some mild oozing at that time. Patient was at the emergency department and he was prescribed p.o. antibiotics (doxycycline) and sent home. Patient has completed the course of the p.o. antibiotics. However his symptoms progress and he has extreme pain; progressively worsening erythema and swelling of his left foot that has radiated to his legs. He denies a fever but reports chills. He denies anorexia. [facility] and who upon evaluating advised hi, to seek further care. 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 Home Medications carvedilol 3.125 mg PO BID 08/18/19 [History Last Taken 07/08/20] cholecalciferol (vitamin D3) 2,000 unit PO DAILY 08/18/19 [History Last Taken 07/08/20] gabapentin 300 mg PO TID 08/18/19 [History Last Taken 07/08/20] metformin 1,000 mg PO BID 08/18/19 [History Last Taken 07/08/20] Emollient Combination No.72 [Eucerin Intensive Repair] 1 applic TOPICAL 0600,2200 07/08/20 [History Last Taken Unknown] aspirin 81 mg PO DAILY@0800 07/08/20 [History Last Taken 07/08/20] insulin glargine 50 units SUBCUT BREAKFAST 07/08/20 [History Last Taken 07/07/20] naproxen 500 mg PO BID 07/08/20 [History Last Taken 07/08/20] insulin lispro [Humalog Pen] 15 unit SUBCUT TID 11/08/21 [History Last Taken Unknown] Allergy/AdvReac Type Severity Reaction Status Date / Time No Known Allergies Allergy Verified 11/08/21 17:16 Family History Other Cancer Diabetes Surgical History History of cholecystectomy History of hip surgery Social History Smoking Status: Former smoker ROS ROS Narrative Constitutional: Reports chills. Denies fever, fatigue, anorexia and change in weight Eyes: Denies blurry vision, change in eye color, change in vision, discharge from eye(s), double vision, erythema, eye pain, loss of vision or other HEENT: Denies abnormal hearing, dysphagia, ear pain, epistaxis, headache(s), hearing loss, nasal congestion, nasal discharge, post nasal drip, sinus pressure, sore throat or other Cardiovascular: Denies chest pain or palpitations. Denies dyspnea on exertion, orthopnea and paroxysmal nocturnal dyspnea Respiratory/Chest: Denies cough, excessive phlegm production, shortness of breath with exertion and wheezing Gastrointestinal: Denies abdominal pain, coffee ground emesis, constipation, diarrhea, dyspepsia, hematemesis, hematochezia, loose stools, melena, nausea, vomiting or other Genitourinary: Denies burning urination, difficulty urinating, dysuria, hematu ming, nocturia, urinary frequency, urinary hesitancy, urinary incontinence, urinary urgency or other Musculoskeletal: Reports swelling and tenderness of left foot. Denies arthralgias, back pain. Neurologic: Denies abnormal gait, abnormal speech, confusion, disequilibrium, dizziness, focal weakness, headache(s), numbness, paresthesias, seizure-like activity, seizures, syncope, tingling, tremor(s) or other Psychiatric: Denies anxiety, depression, homicidal ideation, suicidal ideation or other Endocrinology: Denies change in body appearance, cold intolerance, excessive sweating, heat intolerance, polydipsia, polyuria or other Hematologic/Lymphatic: Denies anemia, easy bleeding, easy bruising, lymphadenopathy or other Integumentary: Reports erythema of left foot. Allergic/Immunologic: Denies rhinitis, hives, eczema, asthma or other Vital Signs Vital Signs Vital Signs: 11/08/21 17:08 Temperature 97.4 F L Temperature Source Temporal Pulse Rate 71 Respiratory Rate 18 Pulse Ox 97 Oxygen Delivery Method Room Air Weight Weight: 112.491 kg Body Mass Index (BMI) 35.6 Physical Exam Narrative Physical exam: General: Well-nourished, well-developed. Head: Normocephalic, atraumatic, no tenderness Eyes: PERRLA, EOMI ENT, no trauma, moist mucous membranes, no rhinorrhea Neck: Nontender, full range of motion, no spinal tenderness, deformities, step- off CVS: Regular rate and rhythm. S1-S2 present. No murmur, gallop or rub. Respiratory : clear to auscultation bilaterally, chest wall nontender, no wheezing Abdomen: Soft, nontender, nondistended, normal bowel sounds, no masses : Deferred Back: Nontender, no CVA tenderness, no midline spinal tenderness, deformities, step-offs Extremities: Tender left foot. Partial amputation of right foot. Skin: Swelling and erythema of left foot and left leg. No swelling or erythema of the right foot and right leg. Neuro: Alert, oriented, cranial nerves II through XII grossly intact. Psychiatry: Normal mood. Normal affect. Not depressed. Not anxious. Results Lab / Micro Data Result Diagrams: 11/08/21 17:45 11/08/21 17:45 Labs: Laboratory Results - last 24 hr 11/08/21 17:45: WBC 9.2, RBC 4.47 L, Hgb 12.8 L, Hct 39.9 L, MCV 89.3, MCH 28.6, MCHC 32.1, RDW Std Deviation 44.8 H, RDW Coeff of Hakeem 13.6, Plt Count 231, MPV 9.1, Immature Gran % (Auto) 0.700, Neut % (Auto) 83.0 H, Lymph % (Auto) 8.9 L, [place]ockley % (Auto) 6.1, Eos % (Auto) 1.0, Baso % (Auto) 0.3, Absolute Neuts (auto) 7.7, Absolute Lymphs (auto) 0.82 L, Nucleated RBC % 0 11/08/21 17:45: Sodium 135 L, Potassium 4.7, Chloride 104, Carbon Dioxide 26.0, Anion Gap 5, BUN 16, Creatinine 0.88, Estim Creat Clear Calc 85.26, Est GFR (MDRD) Af Amer 111, Est GFR (MDRD) Non-Af 91, BUN/Creatinine Ratio 18.1, Glucose 106, Calcium 9.2 11/08/21 17:45: Lactic Acid 1.5 Radiology Impression Venous Duplex 11/08/21 17:35 IMPRESSION: No demonstrated deep vein thrombosis. Subcutaneous edema. 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 Venous duplex was independently visualized and interpreted and agree radiologist interpretation of no DVT but with subcutaneous swelling. Review of wound culture on 08/18/2019 showed MRSA; Pseudomonas aeruginosa; Citrobacter freundii; and corynebacterium striatum. Vancomycin and Zosyn started at the emergency department and continued. We will check ESR and CRP. Lactic acid is unremarkable Consult infectious disease and podiatry. Keep patient n.p.o. except meds after midnight. Diabetes mellitus with polyneuropathy Patient with euglycemia on presentation. Calorie controlled diet.De-escalate home basal insulin. Keep patient n.p.o. until podiatry evaluates patient. Accu-Chek Q6 hours with correction scale insulin ordered. DVT prophylaxis Patient is a surgical candidate. SCD ordered. Charges/Coding Visit Charges Inpatient E&M: 35553 Init Hosp L3
[2021-11-08 21:03] VITALS: BMI 33.3
[2021-11-08 21:15] VITALS: BP 146/73; PULSE 101; RESP 18; TEMP 37.1; O2SAT 93
[2021-11-08] MEDS: Carvedilol 3.125 MG TABLET PO (21:29)
[2021-11-08] MEDS: Naproxen 500 MG Tablet PO (21:29)
[2021-11-08] MEDS: oxyCODONE 5 MG Tablet PO (21:35)
[2021-11-08] MEDS: Acetaminophen 325 MG Tablet 650 MG PO (21:36)
[2021-11-08 21:45] LABS: Bedside Glucose 123 mg/dL (70-110)
--- NOTE | 2021-11-08 21:50 | PCM.RX.CS ---
Consult Pharmacy has been consulted to manage selected antiobiotic: Vancomycin Type of Consult: New start Suspected Infection: Skin/Soft tissue Labs: Sodium 135 mmol/L (136-145) L 11/08/21 17:45 Potassium 4.7 mmol/L (3.5-5.1) 11/08/21 17:45 Chloride 104 mmol/L (98-107) 11/08/21 17:45 Carbon Dioxide 26.0 mmol/L (21.0-32.0) 11/08/21 17:45 Anion Gap 5 (5-15) 11/08/21 17:45 BUN 16 mg/dL (7-18) 11/08/21 17:45 Creatinine 0.88 mg/dL (0.70-1.30) 11/08/21 17:45 Est GFR (MDRD) Af Amer 111 mL/min (>60) 11/08/21 17:45 Est GFR (MDRD) Non-Af 91 mL/min (>60) 11/08/21 17:45 BUN/Creatinine Ratio 18.1 RATIO (10-20) 11/08/21 17:45 Glucose 106 mg/dL (74-106) 11/08/21 17:45 Weight used for dosin.4 kg Estimated Creatinine Clearance: 109.4 Goal Trough: 15-20 mcg/mL Pharmacy Plan for Drug Dosing: Pharmacy Service will continue to monitor and adjust dosing as required. Medications Vancomycin HCl 1,500 mg/ (Sodium Chloride) 530 mls @ 250 mls/hr IV Q8H KAREN Discontinued Medications Vancomycin HCl 1,750 mg/ (Sodium Chloride) 535 mls @ 250 mls/hr IV X1 ONE Stop: 11/08/21 19:34 Last Admin: 11/08/21 18:33 Dose: 250 mls/hr Documented by: Follow-Up Labs: Trough Vancomycin Labs to be done on [date and time ordered]: 11/09 @ 1800
[2021-11-08 23:00] VITALS: O2SAT 93
[2021-11-09] MEDS: 0.9% Saline Lock 10 ML Syringe IV ×3 (03:06→15:11)
[2021-11-09 03:15] VITALS: BP 103/54; PULSE 96; RESP 16; TEMP 36.9; O2SAT 93
[2021-11-09 03:30] VITALS: BMI 33.3
--- NOTE | 2021-11-09 05:00 | EKG12_ITS ---
Test Reason : PRE-OP Blood Pressure : / mmHG Vent. Rate : 097 BPM Atrial Rate : 097 BPM P-R Int : 170 ms QRS Dur : 140 ms QT Int : 378 ms P-R-T Axes : 040 -24 040 degrees QTc Int : 480 ms Sinus rhythm with Premature atrial complexes Right bundle branch block Abnormal ECG When compared with ECG of 13-OCT-2021 17:39, Premature atrial complexes are now Present Left anterior fascicular block is no longer Present Criteria for Septal infarct are no longer Present Confirmed by JESUS RECINOS, COREY ([id number]), film or videotape editor WILLIAM CAST ([id number]) on 11/10/2021 11:23:09 AM Referred By: PATI Confirmed By:NADER LEE MD
[2021-11-09 05:36] LABS: Bedside Glucose 187 mg/dL (70-110)
[2021-11-09 06:27] LABS: Absolute Lymphocyte Count 0.78 X10^3/uL (0.83-4.51); Absolute Neutrophil Count 5.1 X10^3/uL (2.0-7.7); Basophil# 0.03 X10^3/uL; Basophil% 0.5 % (0-1); Eosinophils% 1.5 % (0-5); Hemoglobin 11.2 g/dL (13.0-16.5); Lymphocyte # 0.78 X10^3/ul (0.83-4.51); Lymphocyte % 11.9 % (19-41); Mean Corpuscular Hgb 28.7 pg (27.0-32.0); Mean Corpuscular Volume 89.7 fL (80-94); Mean Platelet Vol. 9.1 fl (6.2-12.0); Monocyte# 0.56 X10^3/uL; Monocyte% 8.5 % (0-10); NRBC Flagged by Analyzer 0 % (0-5); Neutrophil # 5.06 X10^3/uL (2.7-7.7); Neutrophil % 76.8 % (47-70); Platelet Count 182 K/mm3 (150-450); RBC Distribution Width CV 13.7 % (11.6-14.6); RBC Distribution Width SD 45.3 fl (35.1-43.9); White Blood Count 6.6 K/mm3 (4.4-11.0)
[2021-11-09 06:34] LABS: Erythrocyte Sedimentation Rate 60 mm/hr (0-20)
[2021-11-09 06:47] LABS: Anion Gap 3 (5-15); BUN 17 mg/dL (7-18); BUN/Creat Ratio 17.3 RATIO (10-20); Calcium,Total 8.5 mg/dL (8.5-10.1); Chloride 107 mmol/L (98-107); Creatinine, Serum 0.98 mg/dL (0.70-1.30); EST Glomerular Filtration Rate 81 mL/min (>60); Est Glom Filt Rate - Afr Amer 98 mL/min (>60); Glucose 212 mg/dL (74-106); Potassium 4.1 mmol/L (3.5-5.1); Sodium Level 137 mmol/L (136-145)
[2021-11-09 06:54] LABS: AST(SGOT) 21 U/L (15-37); Alanine Aminotransfer ALT/SGPT 29 U/L (16-61); Albumin, Serum 2.2 g/dL (3.2-5.0); Alkaline Phosphatase 51 U/L (45-117); Bilirubin, Direct 0.12 mg/dL (0.00-0.30); Protein, Total 6.2 g/dL (6.4-8.2)
[2021-11-09 07:43] VITALS: BP 105/55; PULSE 97; RESP 18; TEMP 36.7; O2SAT 93
[2021-11-09] MEDS: Morphine 2 MG/ML Syringe IV ×2 (07:51→21:07)
[2021-11-09 08:28] LABS: Hemoglobin A1c 7.5 % (3.8-5.6)
[2021-11-09] MEDS: Carvedilol 3.125 MG TABLET PO ×2 (10:40→21:20)
[2021-11-09] MEDS: oxyCODONE 5 MG Tablet PO ×2 (10:46→15:16)
--- NOTE | 2021-11-09 12:18 | PCM.PN.HOSP ---
Subjective Subjective pain in left foot improved. sloughing skin present since last week. Objective Data Objective Data Vital Signs: Vital Signs Temp Pulse Resp BP Pulse Ox 36.7 C 97 18 105/55 L 93 11/09/21 07:43 11/09/21 07:43 11/09/21 07:43 11/09/21 07:43 11/09/21 07:43 Oxygen Delivery Method Room Air Weight: 114.396 kg Body Mass Index (BMI) 33.3 Intake & Output: Intake and Output for Last 24 Hours 11/07/21 11/08/21 11/09/21 23:59 23:59 23:59 Intake Total 585 / 585 900.83 / 900.83 Output Total 1075 / 1075 Balance 585 / 585 -174.17 / -174.17 Lab / Micro Data Result Diagrams: 11/09/21 05:40 11/09/21 05:40 Labs: Laboratory Results - last 24 hr 11/08/21 17:45: WBC 9.2, RBC 4.47 L, Hgb 12.8 L, Hct 39.9 L, MCV 89.3, MCH 28.6, MCHC 32.1, RDW Std Deviation 44.8 H, RDW Coeff of Hakeem 13.6, Plt Count 231, MPV 9.1, Immature Gran % (Auto) 0.700, Neut % (Auto) 83.0 H, Lymph % (Auto) 8.9 L, Isabela % (Auto) 6.1, Eos % (Auto) 1.0, Baso % (Auto) 0.3, Absolute Neuts (auto) 7.7, Absolute Lymphs (auto) 0.82 L, Nucleated RBC % 0 11/08/21 17:45: Sodium 135 L, Potassium 4.7, Chloride 104, Carbon Dioxide 26.0, Anion Gap 5, BUN 16, Creatinine 0.88, Estim Creat Clear Calc 85.26, Est GFR (MDRD) Af Amer 111, Est GFR (MDRD) Non-Af 91, BUN/Creatinine Ratio 18.1, Glucose 106, Calcium 9.2 11/08/21 17:45: Lactic Acid 1.5 11/08/21 21:26: POC Glucose 123 H 11/09/21 05:30: POC Glucose 187 H 11/09/21 05:40: WBC 6.6, RBC 3.90 L, Hgb 11.2 L, Hct 35.0 L, MCV 89.7, MCH 28.7, MCHC 32.0, RDW Std Deviation 45.3 H, RDW Coeff of Hakeem 13.7, Plt Count 182, MPV 9.1, Immature Gran % (Auto) 0.800, Neut % (Auto) 76.8 H, Lymph % (Auto) 11.9 L, Isabela % (Auto) 8.5, Eos % (Auto) 1.5, Baso % (Auto) 0.5, Absolute Neuts (auto) 5.1, Absolute Lymphs (auto) 0.78 L, Nucleated RBC % 0, ESR 60 H 11/09/21 05:40: Sodium 137, Potassium 4.1, Chloride 107, Carbon Dioxide 27.0, Anion Gap 3 L, BUN 17, Creatinine 0.98, Estim Creat Clear Calc 83.80, Est GFR (MDRD) Af Amer 98, Est GFR (MDRD) Non-Af 81, BUN/Creatinine Ratio 17.3, Glucose 212 H, Calcium 8.5, C-React Prot Ext Range 144.00 H 11/09/21 05:40: Total Bilirubin 0.40, Direct Bilirubin 0.12, AST 21, ALT 29, Alkaline Phosphatase 51, Total Protein 6.2 L, Albumin 2.2 L, Globulin 4.0 11/09/21 05:40: Hemoglobin A1c 7.5 H Radiography Diagnostic Testing: Radiology Impression Venous Duplex 11/08/21 17:35 IMPRESSION: No demonstrated deep vein thrombosis. Subcutaneous edema. Electronically Signed: Leatha Monroy MD at 20:02 EST , Physical Exam Const alert and no apparent distress Extremity Extremity Narrative: erythema of LLE from ankle to foot. blisters on anterior left mario. sloughing skin diffusely. Assessment & Plan Assessment/Plan (1) Diabetic foot infection: PLAN: 1. left foot cellulitis diabetic associated failed outpt antibiotics on pip/tazo and vancomycin podiatry and ID on consult ESR and CRP elevated concern for OM. check MRI 2. DM2 fair control continue basal and SSI 3. VTE prophylaxis: SCDs Charges/Coding Visit Charges Inpatient E&M: 57220 Subs Hosp L1
--- NOTE | 2021-11-09 12:24 | MRI_ITS ---
STUDY: MRI LEFT MIDFOOT REASON FOR EXAM: Male, 66 years old. LT HAND RUNNING AND FELL DOWN PAINFUL MID PALM TECHNIQUE: Standardized fat and water weighted pulse sequences were obtained in all 3 orthogonal planes. COMPARISON: None. FINDINGS: Moderate subcutaneous edema is present over the dorsum of the foot. Mild marrow edema is present on the plantar surface of the head of the second metatarsal bone, see image #13/30 series 4, this is likely reactive or due to stress edema, and there is no overlying cortical erosion or intramedullary lysis or other findings related to active osteomyelitis. No evidence of marrow edema or osteomyelitis in the remaining bony structures. No visualized soft tissue abscess. Normal talonavicular articulation. Normal calcaneocuboid articulation. Normal navicular-cuneiform articulations. Normal intercuneiform articulations. Normal first tarsometatarsal articulation. Normal Lisfranc ligament. Normal second and third tarsometatarsal articulations. Normal cuboid fourth and cuboid fifth tarsometatarsal articulation. Normal first through fifth metatarsi. Normal tibialis anterior tendon. Normal extensor hallucis longus tendon. Normal extensor digitorum longus tendons. Normal peroneus longus tendon and distal insertion. Normal peroneus brevis tendon and distal insertion. Normal intrinsic muscles of the mid and forefoot region. Normal extensor digitorum brevis muscle. MRI/Lower Ext/No Jt/w/o IMPRESSION: 1. Moderate subcutaneous edema is present over the dorsum of the foot, consistent with cellulitis and reactive inflammation. 2. No soft tissue abscess 3. Mild marrow edema is present on the plantar surface of the head of the second metatarsal bone, see image #13/30 series 4, this is likely reactive or due to stress edema, and there is no overlying cortical erosion or intramedullary lysis or other findings related to active osteomyelitis. 4. No evidence of marrow edema or osteomyelitis in the remaining bony structures. Electronically Signed: Edwin Toro MD at 16:06 [facility] Reading Location ID and State: [facility] / [place] , Service support ,
--- NOTE | 2021-11-09 13:19 | PCM.CONS.GEN ---
Assessment & Plan Assessment/Plan (1) Cellulitis: QUALIFIERS: Site of cellulitis: extremity Site of cellulitis of extremity: lower extremity Laterality: right Qualified Code(s): L03.115 - Cellulitis of right lower limb PLAN: L lower leg cellulitis. Was on doxy for past week; suspect he needed better strep coverage. Will narrow abx to vanc/cefazolin. Not interested in covid vaccine at this time. Will follow, thank you HPI Consult Data Date of Consult: 11/09/21 HPI Narrative HPI Narrative: DAMON WYLIE, is a 66 M who presented 11/08 with 8 days of progressive L lower leg redness, pain, blistering, swelling, and serous drainage. No fever, some chills. Came to ED 10/30 after sliding out of bed and getting a berenice burn. Given doxy, sent home. Sx worsened, pain was severe, came back, admitted on vanc/zosyn, feeling a little better today. Has not had covid shot. Full ROS performed and neg except as noted above. 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 Home Medications carvedilol 3.125 mg PO BID 08/18/19 [History Last Taken 11/08/21] cholecalciferol (vitamin D3) 2,000 unit PO DAILY 08/18/19 [History Last Taken 11/08/21] gabapentin 300 mg PO TID 08/18/19 [History Last Taken 11/08/21] metformin 1,000 mg PO BID 08/18/19 [History Last Taken 11/08/21] Emollient Combination No.72 [Eucerin Intensive Repair] 1 applic TOPICAL 0600,2200 07/08/20 [History Last Taken 11/08/21] aspirin 81 mg PO DAILY@0800 07/08/20 [History Last Taken 11/08/21] insulin glargine 50 units SUBCUT BREAKFAST 07/08/20 [History Last Taken 11/08/21] naproxen 500 mg PO BID 07/08/20 [History Last Taken 11/08/21] insulin lispro [Humalog Pen] 15 unit SUBCUT TID 11/08/21 [History Last Taken 11/08/21] Allergy/AdvReac Type Severity Reaction Status Date / Time No Known Allergies Allergy Verified 11/08/21 17:16 Family History Other Cancer Diabetes Surgical History History of cholecystectomy History of hip surgery Social History Smoking Status: Former smoker Physical Exam Const alert, oriented x3 and no apparent distress General Appearance: cooperative Exam Limitations: no limitations HEENT normocephalic and head/scalp atraumatic Eyes PERRL and EOMs intact bilaterally Neck supple and No nodes Resp normal air movement and clear to auscultation bilaterally Cardio regular rate and regular rhythm GI normal to inspection, nondistended, normoactive bowel sounds Extremity Extremity Narrative: LLE edema Skin Skin Narrative: L lower leg warmth, redness, bullae, mild tenderness Neuro CN's II-XII intact bilaterally Lab / Micro Data Result Diagrams: 11/09/21 05:40 11/09/21 05:40 Labs: Laboratory Results - last 24 hr 11/08/21 17:45: WBC 9.2, RBC 4.47 L, Hgb 12.8 L, Hct 39.9 L, MCV 89.3, MCH 28.6, MCHC 32.1, RDW Std Deviation 44.8 H, RDW Coeff of Hakeem 13.6, Plt Count 231, MPV 9.1, Immature Gran % (Auto) 0.700, Neut % (Auto) 83.0 H, Lymph % (Auto) 8.9 L, Kingsbury % (Auto) 6.1, Eos % (Auto) 1.0, Baso % (Auto) 0.3, Absolute Neuts (auto) 7.7, Absolute Lymphs (auto) 0.82 L, Nucleated RBC % 0 11/08/21 17:45: Sodium 135 L, Potassium 4.7, Chloride 104, Carbon Dioxide 26.0, Anion Gap 5, BUN 16, Creatinine 0.88, Estim Creat Clear Calc 85.26, Est GFR (MDRD) Af Amer 111, Est GFR (MDRD) Non-Af 91, BUN/Creatinine Ratio 18.1, Glucose 106, Calcium 9.2 11/08/21 17:45: Lactic Acid 1.5 11/08/21 21:26: POC Glucose 123 H 11/09/21 05:30: POC Glucose 187 H 11/09/21 05:40: WBC 6.6, RBC 3.90 L, Hgb 11.2 L, Hct 35.0 L, MCV 89.7, MCH 28.7, MCHC 32.0, RDW Std Deviation 45.3 H, RDW Coeff of Hakeem 13.7, Plt Count 182, MPV 9.1, Immature Gran % (Auto) 0.800, Neut % (Auto) 76.8 H, Lymph % (Auto) 11.9 L, Kingsbury % (Auto) 8.5, Eos % (Auto) 1.5, Baso % (Auto) 0.5, Absolute Neuts (auto) 5.1, Absolute Lymphs (auto) 0.78 L, Nucleated RBC % 0, ESR 60 H 11/09/21 05:40: Sodium 137, Potassium 4.1, Chloride 107, Carbon Dioxide 27.0, Anion Gap 3 L, BUN 17, Creatinine 0.98, Estim Creat Clear Calc 83.80, Est GFR (MDRD) Af Amer 98, Est GFR (MDRD) Non-Af 81, BUN/Creatinine Ratio 17.3, Glucose 212 H, Calcium 8.5, C-React Prot Ext Range 144.00 H 11/09/21 05:40: Total Bilirubin 0.40, Direct Bilirubin 0.12, AST 21, ALT 29, Alkaline Phosphatase 51, Total Protein 6.2 L, Albumin 2.2 L, Globulin 4.0 11/09/21 05:40: Hemoglobin A1c 7.5 H Radiology Impression Venous Duplex 11/08/21 17:35 IMPRESSION: No demonstrated deep vein thrombosis. Subcutaneous edema. Electronically Signed: Leatha Monroy MD at 20:02 EST ,
[2021-11-09 14:01] LABS: Bedside Glucose 146 mg/dL (70-110)
--- NOTE | 2021-11-09 15:00 | CASEMGMT ---
RN NAZ WINDOWS ADMINISTRATOR CM to room to meet with patient for initial transition planning/care coordination assessment. TAMMIE CHILDS introduced self and role at [facility]. Pt voices understanding and consents to assessment at this time. Pt resting in bed in no distress at this time. Pt is A/O at this time. Pt gruff w/responses and answered questions w/brief/short answers and would not elaborate on most questions. Pt states wants to be home and wants to get out of the hospital as soon as possible. Care providers, pharmacy, and demographics verified/updated at this time. PCP: [facility] Specialists: Yes through the [place] Preferred Pharmacy: [facility], [place] Insurance: [employer], [employer] [facility]. Prescription Benefit: Through [place] only. Living Will/HPOA: Has both. is HPOA. LNOK: , POA Living Arrangements: Lives in 2-story home w/no steps to enter. FFSU. Pt states his has been gone, stating, She's been JENIFFER since she brought COVCO home 10/02. He then stated, I've only talked to her in court. Pt would not elaborate/provide further information. Inquired if anyone else lives w/him. He states, I don't think that's a question you should have to know the answer to. RN NAZ informed him it is to help access if someone has support in the home, if assistance is needed, such as w/meals, home tasks, dressing changes/wound care, etc. Pt states I have support. I have friends that come and visit and sometimes stay. Pt again would not provide further information. Transportation: Pt states drives self and states no transportation concerns at this time. He states his car is currently @ [facility]. DME: States has the following DME: shower chair, BSC, cane, walker, W/C, 2 glucometers. RN NAZ inquired if they function properly. He stated, I guess so but I haven't used them in awhile. Pt states no need for further DME at this time. HHC/SNF: [facility]. Pt denies currently smoking and denies ETOH use. Pt aware MRI has been ordered and there is concern for osteomyelitis. TAMMIE CHILDS inquired, if IV atb's are needed @ d/c, if he is interested in going to a SNF. Pt stated, Lets cross that bridge when we get there. PLAN: TBD by course of treatment. Follow for possible IV atb's needed @ d/c and any wound care needs. Gee CELISN RN CM
[2021-11-09 15:10] VITALS: BP 136/80; PULSE 85; RESP 18; TEMP 36.3; O2SAT 98
[2021-11-09] MEDS: Cefazolin 2 GM in 0.9% Normal Saline 100 ML IV ×2 (15:11→21:21)
[2021-11-09 16:19] VITALS: O2SAT 98
[2021-11-09 17:16] LABS: Bedside Glucose 102 mg/dL (70-110)
--- NOTE | 2021-11-09 18:39 | CON.PCM_ITS ---
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 He states that he had a fall out of bed suffering a carpet burn that later formed a blister on the foot with local redness. He failed outpatient oral antibiotics, doxycycline. He states that the redness continued to move up his leg with increasing pain causing him to return to the [facility] ED for admittance where he received IV vancomycin/Zosyn. His white blood cell count on admission was 9.4. This has decreased today to 6.6. Patient states that he does feel improvement since starting IV antibiotics and continues to deny any nausea, vomiting, fever,or chills currently. Patient has an ESR of 60 and a CRP of 144. His recent hemoglobin A1c was 7.5% I discussed his case with him bedside concerning his cellulitis of his left lower extremity with serous blister formation. There is a considerable amount of erythema from the base of the toes extending proximally to the tibial tuberosity of the left lower extremity with multiple small serous blisters on the anterior lower extremity and a larger partially ruptured serous blister with roof intact at the medial dorsal foot. Patient feels that his redness has decreased since starting IV antibiotics. I reviewed his venous studies which were negative for DVT. I reviewed his ankle x-rays which were negative for gas infection. I reviewed his MRI which demonstrated moderate subcutaneous edema present overlying the dorsum foot consistent with cellulitis and reactive inflammation. There was no soft tissue abscess noted on MRI or any signs of active osteomyelitis. There was a small focal area of marrow edema second metatarsal head plantarly without overlying cortical erosion or intramedullary lysis. There was no evidence of marrow edema or osteomyelitis in the remaining bony structures of the foot or ankle. I discussed with patient that with his redness starting to improve and with no abscess or active bone infection currently that I would like to continue to monitor him for signs of subsiding cellulitis. I recommend continued elevation of the left lower extremity to control edema. Patient to continue IV antibiotics per infectious disease recommendation. Infectious disease is following and plans to narrow antibiotic coverage to vancomycin/cefazolin for better strep coverage. Podiatry is in agreement with this plan. Internal medicine is following for medical management of patient, this is appreciated by podiatry. Podiatry will continue to monitor patient for subsiding cellulitis of the left lower extremity. Please call for any questions or concerns. Jr. Abbie Connor.P.M. [phone] [facility] HPI Consult Data Date of Consult: 11/09/21 HPI Narrative HPI Narrative: DAMON WYLIE, is a 66 M who presents with left lower extremity cellulitis with blistering formation dorsal foot and anterior leg, complicated by diabetes mellitus type 2 with peripheral polyneuropathy. Patient has a transmetatarsal amputation of the right foot with history of MRSA. He states that last week he tried to get out of bed and slipped suffering a carpet burn to the left foot. He stated that the site begin to have localized redness that spread up his leg with blister forming on the dorsal foot. He went to he went to the [facility] ED and was discharged with oral doxycycline. He states that he took the oral antibiotic but states that it did not improve with continued redness moving up the leg with swelling, pain, and serous drainage from the blister site. [facility] and they instructed him based upon appearance to go to the [facility] ED for admittance. He denies any nausea, vomiting, fever, but states he had chills occasionally. 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 Home Medications carvedilol 3.125 mg PO BID 08/18/19 [History Last Taken 11/08/21] cholecalciferol (vitamin D3) 2,000 unit PO DAILY 08/18/19 [History Last Taken 11/08/21] gabapentin 300 mg PO TID 08/18/19 [History Last Taken 11/08/21] metformin 1,000 mg PO BID 08/18/19 [History Last Taken 11/08/21] Emollient Combination No.72 [Eucerin Intensive Repair] 1 applic TOPICAL 0600,2200 07/08/20 [History Last Taken 11/08/21] aspirin 81 mg PO DAILY@0800 07/08/20 [History Last Taken 11/08/21] insulin glargine 50 units SUBCUT BREAKFAST 07/08/20 [History Last Taken 11/08/21] naproxen 500 mg PO BID 07/08/20 [History Last Taken 11/08/21] insulin lispro [Humalog Pen] 15 unit SUBCUT TID 11/08/21 [History Last Taken 11/08/21] Allergy/AdvReac Type Severity Reaction Status Date / Time No Known Allergies Allergy Verified 11/08/21 17:16 Family History Other Cancer Diabetes Surgical History History of cholecystectomy History of hip surgery Social History Smoking Status: Former smoker ROS Constitutional Constitutional: Denies body ache(s), chills, fatigue, fever(s) or headache(s) Eyes Eyes: Denies burning, double vision or loss of vision ENT HEENT: Denies dizziness, nasal congestion, nasal discharge or sore throat Cardiovascular Cardiovascular: Denies chest pain, cold extremities or dyspnea Respiratory/Chest Respiratory/Chest: Denies cough, dyspnea, productive cough, shortness of breath at rest or wheezing Gastrointestinal Gastrointestinal: Reports constipation; Denies abdominal pain, diarrhea or nausea Genitourinary Genitourinary: Denies difficulty urinating, dysuria or hematuria Musculoskeletal Musculoskeletal: Reports numbness and tingling; Denies joint pain or joint stiffness Integumentary Integumentary: Reports erythema and other Details: Erythema left lower extremity with serous blistering dorsal foot and anterior leg ; Denies lesions or skin ulcer Neurologic Neurologic: Denies dizziness, headache(s) or seizures Psychiatric Psychiatric: Denies anxiety or depression Endocrine Endocrinology: Denies polydipsia, polyphagia or polyuria Hematologic/Lymphatic Hematologic/Lymphatic: Denies easy bleeding, easy bruising or lymphadenopathy Allergic/Immunologic Allergic/Immunologic: Denies urticaria or wheezing Physical Exam Const alert, oriented x3 and no apparent distress General Appearance: cooperative and comfortable HEENT normocephalic Eyes General Eye: normal appearance of both eyes Neck General: normal visual inspection Lymph Lymphatic: no lymphadenopathy noted and no lymphedema noted Chest inspection of chest normal Resp normal respiratory effort Cardio regular rate and regular rhythm GI normal to inspection, nondistended, normoactive bowel sounds Back/Spine normal to inspection Extremity Extremity Narrative: Right lower extremity skin is soft and supple with normal turgor. Right foot transmetatarsal amputation is noted with no wounds to the stump. Left lower extremity erythema is noted extending from the base of the toes to the tibial tuberosity with peeling skin and serous blister formation dorsomedial foot and anterior distal lower extremity. Nonpitting edema noted dorsal foot. There is some dorsal ecchymosis secondary to cellulitis and edema. There are no open wounds. Peripheral Pulses: Yes posterior tibial pulses present bilateral and dorsalis pedis pulses present bilateral Skin Wound Narrative: Left lower extremity erythema is noted extending from the base of the toes to the tibial tuberosity with peeling skin and serous blister formation dorsomedial foot and anterior distal lower extremity. Nonpitting edema noted dorsal foot. There is some dorsal ecchymosis secondary to cellulitis and edema. There are no open wounds. Neuro Motor Exam: strength 5/5 throughout and clonus absent Lab / Micro Data Result Diagrams: 11/09/21 05:40 11/09/21 05:40 Labs: Laboratory Results - last 24 hr 11/08/21 21:26: POC Glucose 123 H 11/09/21 05:30: POC Glucose 187 H 11/09/21 05:40: WBC 6.6, RBC 3.90 L, Hgb 11.2 L, Hct 35.0 L, MCV 89.7, MCH 28.7, MCHC 32.0, RDW Std Deviation 45.3 H, RDW Coeff of Hakeem 13.7, Plt Count 182, MPV 9.1, Immature Gran % (Auto) 0.800, Neut % (Auto) 76.8 H, Lymph % (Auto) 11.9 L, Rice % (Auto) 8.5, Eos % (Auto) 1.5, Baso % (Auto) 0.5, Absolute Neuts (auto) 5.1, Absolute Lymphs (auto) 0.78 L, Nucleated RBC % 0, ESR 60 H 11/09/21 05:40: Sodium 137, Potassium 4.1, Chloride 107, Carbon Dioxide 27.0, Anion Gap 3 L, BUN 17, Creatinine 0.98, Estim Creat Clear Calc 83.80, Est GFR (MDRD) Af Amer 98, Est GFR (MDRD) Non-Af 81, BUN/Creatinine Ratio 17.3, Glucose 212 H, Calcium 8.5, C-React Prot Ext Range 144.00 H 11/09/21 05:40: Total Bilirubin 0.40, Direct Bilirubin 0.12, AST 21, ALT 29, Alkaline Phosphatase 51, Total Protein 6.2 L, Albumin 2.2 L, Globulin 4.0 11/09/21 05:40: Hemoglobin A1c 7.5 H 11/09/21 11:52: POC Glucose 146 H 11/09/21 16:52: POC Glucose 102 Radiology Impression Venous Duplex 11/08/21 17:35 IMPRESSION: No demonstrated deep vein thrombosis. Subcutaneous edema. Electronically Signed: Leatha Monroy MD at 20:02 EST , Lower Extremity MRI 11/09/21 12:24 IMPRESSION: 1. Moderate subcutaneous edema is present over the dorsum of the foot, consistent with cellulitis and reactive inflammation. 2. No soft tissue abscess 3. Mild marrow edema is present on the plantar surface of the head of the second metatarsal bone, see image #13/30 series 4, this is likely reactive or due to stress edema, and there is no overlying cortical erosion or intramedullary lysis or other findings related to active osteomyelitis. 4. No evidence of marrow edema or osteomyelitis in the remaining bony structures. Electronically Signed: Edwin Toro MD at 16:06 EST ,
[2021-11-09 18:48] LABS: Vancomycin, Trough Level 22.2 ug/mL (5.0-15.0)
--- NOTE | 2021-11-09 19:12 | PCM.RX.CS ---
Consult Pharmacy has been consulted to manage selected antiobiotic: Vancomycin Type of Consult: Follow-up Suspected Infection: Skin/Soft tissue Labs: Sodium 137 mmol/L (136-145) 11/09/21 05:40 Potassium 4.1 mmol/L (3.5-5.1) 11/09/21 05:40 Chloride 107 mmol/L (98-107) 11/09/21 05:40 Carbon Dioxide 27.0 mmol/L (21.0-32.0) 11/09/21 05:40 Anion Gap 3 (5-15) L 11/09/21 05:40 BUN 17 mg/dL (7-18) 11/09/21 05:40 Creatinine 0.98 mg/dL (0.70-1.30) 11/09/21 05:40 Est GFR (MDRD) Af Amer 98 mL/min (>60) 11/09/21 05:40 Est GFR (MDRD) Non-Af 81 mL/min (>60) 11/09/21 05:40 BUN/Creatinine Ratio 17.3 RATIO (10-20) 11/09/21 05:40 Glucose 212 mg/dL (74-106) H 11/09/21 05:40 Vancomycin Trough 22.2 ug/mL (5.0-15.0) H 11/09/21 17:49 Goal Trough: 15-20 mcg/mL Pharmacy Plan for Drug Dosing: VANCOMYCIN LEVEL RECEIVED Current Vancomycin Dose: 1500MG IV Q8h Number of Doses Received: 4 (3 prior to trough draw) Vancomycin Level: 22.2 Hours Since Last Dose: 7hr Renal Function: 0.98 Renal Function Trend: stable Lab/Micro: Vancomycin Plan/Comments: Patient had trough drawn which resulted in a value of 22.2 ( Goal 15-20). Patient did have this evening's dose of vancomycin scheduled for 1830. Will hold current vancomycin dose and recheck a trough tomorrow morning with AM labs to assess dosing at that time. Pending Level: 11/10/21 with AM labs Pharmacy Service will continue to monitor and adjust dosing as required.
[2021-11-09 21:11] VITALS: BP 152/81; PULSE 94; RESP 16; TEMP 37.1; O2SAT 97
[2021-11-09] MEDS: Naproxen 500 MG Tablet PO (21:20)
[2021-11-09] MEDS: Insulin Lispro 100 UNIT/ML INSULN.PEN SC (23:26)
[2021-11-09 23:30] LABS: Bedside Glucose 239 mg/dL (70-110)
[2021-11-10] MEDS: Morphine 2 MG/ML Syringe IV ×3 (02:50→20:55)
[2021-11-10 03:00] VITALS: BP 150/68; PULSE 86; RESP 16; TEMP 36.7; O2SAT 97
[2021-11-10] MEDS: Insulin Lispro 100 UNIT/ML INSULN.PEN SC ×4 (05:43→22:10)
[2021-11-10] MEDS: Cefazolin 2 GM in 0.9% Normal Saline 100 ML IV ×3 (05:43→23:53)
[2021-11-10 06:01] LABS: Bedside Glucose 184 mg/dL (70-110)
[2021-11-10 06:42] LABS: Absolute Lymphocyte Count 0.68 X10^3/uL (0.83-4.51); Absolute Neutrophil Count 4.3 X10^3/uL (2.0-7.7); Basophil# 0.02 X10^3/uL; Basophil% 0.4 % (0-1); Eosinophil# 0.14 X10^3/uL; Eosinophils% 2.5 % (0-5); Hematocrit 33.5 % (40-54); Hemoglobin 10.9 g/dL (13.0-16.5); Lymphocyte # 0.68 X10^3/ul (0.83-4.51); Lymphocyte % 12.1 % (19-41); Mean Corp Hgb Conc 32.5 g/dL (32-36); Mean Corpuscular Hgb 28.5 pg (27.0-32.0); Mean Corpuscular Volume 87.5 fL (80-94); Mean Platelet Vol. 9.1 fl (6.2-12.0); Monocyte# 0.42 X10^3/uL; Monocyte% 7.5 % (0-10); NRBC Flagged by Analyzer 0 % (0-5); Neutrophil # 4.34 X10^3/uL (2.7-7.7); Neutrophil % 77.3 % (47-70); Platelet Count 173 K/mm3 (150-450); RBC Distribution Width CV 13.3 % (11.6-14.6); RBC Distribution Width SD 42.3 fl (35.1-43.9); Red Blood Count 3.83 M/mm3 (4.6-6.2); White Blood Count 5.6 K/mm3 (4.4-11.0)
[2021-11-10 07:07] LABS: Anion Gap 5 (5-15); BUN 13 mg/dL (7-18); BUN/Creat Ratio 15.6 RATIO (10-20); Calcium,Total 8.5 mg/dL (8.5-10.1); Chloride 105 mmol/L (98-107); Creatinine, Serum 0.83 mg/dL (0.70-1.30); EST Glomerular Filtration Rate 98 mL/min (>60); Est Glom Filt Rate - Afr Amer 119 mL/min (>60); Estimated Creatinine Clearance 98.94 ml/min; Glucose 168 mg/dL (74-106); Sodium Level 138 mmol/L (136-145)
[2021-11-10 07:46] VITALS: O2SAT 97
--- NOTE | 2021-11-10 08:03 | PCM.RX.CS ---
Consult Type of Consult: Follow-up Suspected Infection: Skin/Soft tissue Labs: Sodium 138 mmol/L (136-145) 11/10/21 05:45 Potassium 4.0 mmol/L (3.5-5.1) 11/10/21 05:45 Chloride 105 mmol/L (98-107) 11/10/21 05:45 Carbon Dioxide 28.0 mmol/L (21.0-32.0) 11/10/21 05:45 Anion Gap 5 (5-15) 11/10/21 05:45 BUN 13 mg/dL (7-18) 11/10/21 05:45 Creatinine 0.83 mg/dL (0.70-1.30) 11/10/21 05:45 Est GFR (MDRD) Af Amer 119 mL/min (>60) 11/10/21 05:45 Est GFR (MDRD) Non-Af 98 mL/min (>60) 11/10/21 05:45 BUN/Creatinine Ratio 15.6 RATIO (10-20) 11/10/21 05:45 Glucose 168 mg/dL (74-106) H 11/10/21 05:45 Vancomycin Trough 22.2 ug/mL (5.0-15.0) H 11/09/21 17:49 Random Vancomycin 16.0 ug/mL (0.0-15.0) H 11/10/21 05:45 Goal Trough: 15-20 mcg/mL Pharmacy Plan for Drug Dosing: VANCOMYCIN LEVEL RECEIVED Current Vancomycin Dose: ON HOLD Number of Doses Received: 4 Vancomycin Level: 16.0 Hours Since Last Dose: 12 Renal Function: sCr 0.83, CrCl 98.94 ml/min Renal Function Trend: stable Lab/Micro: Vancomycin Plan/Comments: Resume Vancomycin at 1750mg Q12H, to start at 0900 11/10/21 Pending Level: Vancomycin Trough @ 202911/11/21 Pharmacy Service will continue to monitor and adjust dosing as required. Labs to be done on [date and time ordered]: Vancomycin trough @ 202911/11/21
[2021-11-10 09:25] VITALS: BP 137/73; PULSE 89; RESP 16; TEMP 36.8; O2SAT 95
[2021-11-10] MEDS: Aspirin E.C. 81 MG Tablet PO (09:31)
[2021-11-10] MEDS: Naproxen 500 MG Tablet PO ×2 (09:31→20:58)
[2021-11-10] MEDS: Carvedilol 3.125 MG TABLET PO ×2 (09:32→20:59)
[2021-11-10] MEDS: Cholecalciferol (VIT D3) 25 MCG TABLET (1,000 UNITS) 50 MCG PO (09:32)
[2021-11-10] MEDS: oxyCODONE 5 MG Tablet PO ×2 (09:36→16:57)
[2021-11-10] MEDS: Senna/Docusate Sodium 1 Tablet 2 TABLET PO ×2 (09:36→20:55)
--- NOTE | 2021-11-10 11:21 | PCM.PN.HOSP ---
Subjective Subjective foot is feeling better overall Objective Data Objective Data Vital Signs: Vital Signs Temp Pulse Resp BP Pulse Ox 36.8 C 89 16 137/73 H 95 11/10/21 09:25 11/10/21 09:25 11/10/21 09:25 11/10/21 09:25 11/10/21 09:25 Oxygen Delivery Method Room Air Weight: 114.396 kg Body Mass Index (BMI) 33.3 Intake & Output: Intake and Output for Last 24 Hours 11/08/21 11/09/21 11/10/21 23:59 23:59 23:59 Intake Total 585 / 585 2100.00 / 2100.00 110 / 110 Output Total 2300 / 3150 2150 / 2150 Balance 585 / 585 -200.00 / -1050.00 -2040 / -2040 Lab / Micro Data Result Diagrams: 11/10/21 05:45 11/10/21 05:45 Labs: Laboratory Results - last 24 hr 11/09/21 11:52: POC Glucose 146 H 11/09/21 16:52: POC Glucose 102 11/09/21 17:49: Vancomycin Trough 22.2 H 11/09/21 23:23: POC Glucose 239 H 11/10/21 05:42: POC Glucose 184 H 11/10/21 05:45: WBC 5.6, RBC 3.83 L, Hgb 10.9 L, Hct 33.5 L, MCV 87.5, MCH 28.5, MCHC 32.5, RDW Std Deviation 42.3, RDW Coeff of Hakeem 13.3, Plt Count 173, MPV 9.1, Immature Gran % (Auto) 0.200, Neut % (Auto) 77.3 H, Lymph % (Auto) 12.1 L, [place] % (Auto) 7.5, Eos % (Auto) 2.5, Baso % (Auto) 0.4, Absolute Neuts (auto) 4.3, Absolute Lymphs (auto) 0.68 L, Nucleated RBC % 0 11/10/21 05:45: Sodium 138, Potassium 4.0, Chloride 105, Carbon Dioxide 28.0, Anion Gap 5, BUN 13, Creatinine 0.83, Estim Creat Clear Calc 98.94, Est GFR (MDRD) Af Amer 119, Est GFR (MDRD) Non-Af 98, BUN/Creatinine Ratio 15.6, Glucose 168 H, Calcium 8.5 11/10/21 05:45: Random Vancomycin 16.0 H Radiography Diagnostic Testing: Radiology Impression Lower Extremity MRI 11/09/21 12:24 IMPRESSION: 1. Moderate subcutaneous edema is present over the dorsum of the foot, consistent with cellulitis and reactive inflammation. 2. No soft tissue abscess 3. Mild marrow edema is present on the plantar surface of the head of the second metatarsal bone, see image #13/30 series 4, this is likely reactive or due to stress edema, and there is no overlying cortical erosion or intramedullary lysis or other findings related to active osteomyelitis. 4. No evidence of marrow edema or osteomyelitis in the remaining bony structures. Electronically Signed: Edwin Toro MD at 16:06 EST Reading Location ID and State: [address] [place] [address] , Service support , Physical Exam Const alert and no apparent distress Resp normal respiratory effort, no retractions, no use of accessory muscles and clear to auscultation bilaterally Cardio regular rate, regular rhythm and S1 normal heart sound GI normal to inspection, nondistended, normoactive bowel sounds, soft to palpation, non-tender and non-distended Extremity Extremity Narrative: ongoing edema of LLE. Skin Skin Narrative: erythema and sloughing skin over right foot and ankle. Assessment & Plan Assessment/Plan (1) Diabetic foot infection: PLAN: 1. left foot cellulitis improved subjectively diabetic associated failed outpt antibiotics on pip/tazo and vancomycin podiatry and ID on consult ESR and CRP elevated concern for OM. MRI showed no osteomyelitis nor abscess no surgery at this time. 2. DM2 fair control continue basal and SSI 3. VTE prophylaxis: SCDs. add enoxaparin Charges/Coding Visit Charges Inpatient E&M: 36844 Subs Hosp L2
[2021-11-10] MEDS: 0.9% Saline Lock 10 ML Syringe IV ×3 (11:23→20:58)
[2021-11-10 11:30] LABS: Bedside Glucose 353 mg/dL (70-110)
[2021-11-10] MEDS: Gabapentin 300 MG Capsule PO ×2 (13:55→20:58)
[2021-11-10 14:00] VITALS: BP 143/81; PULSE 81; RESP 16; TEMP 36.7; O2SAT 98
[2021-11-10 16:25] LABS: Bedside Glucose 191 mg/dL (70-110)
[2021-11-10] MEDS: Acetaminophen 325 MG Tablet 650 MG PO (16:57)
[2021-11-10 20:15] VITALS: BP 157/81; PULSE 85; RESP 18; TEMP 36.8; O2SAT 100
[2021-11-10 22:30] LABS: Bedside Glucose 255 mg/dL (70-110)
[2021-11-11] MEDS: oxyCODONE 5 MG Tablet PO ×3 (02:05→20:47)
[2021-11-11] MEDS: Acetaminophen 325 MG Tablet 650 MG PO ×2 (02:05→15:09)
[2021-11-11 02:15] VITALS: BP 157/63; PULSE 80; RESP 18; TEMP 37.1; O2SAT 94
[2021-11-11 02:35] VITALS: BP 156/82; PULSE 83; RESP 18; TEMP 36.9; O2SAT 97
[2021-11-11 05:36] LABS: Anion Gap 6 (5-15); BUN 18 mg/dL (7-18); BUN/Creat Ratio 22.2 RATIO (10-20); Calcium,Total 8.7 mg/dL (8.5-10.1); Chloride 104 mmol/L (98-107); Creatinine, Serum 0.81 mg/dL (0.70-1.30); EST Glomerular Filtration Rate 101 mL/min (>60); Est Glom Filt Rate - Afr Amer 122 mL/min (>60); Estimated Creatinine Clearance 101.38 ml/min; Glucose 224 mg/dL (74-106); Potassium 4.2 mmol/L (3.5-5.1); Sodium Level 137 mmol/L (136-145)
[2021-11-11] MEDS: Cefazolin 2 GM in 0.9% Normal Saline 100 ML IV ×3 (05:42→23:04)
[2021-11-11] MEDS: Gabapentin 300 MG Capsule PO ×3 (05:43→20:47)
[2021-11-11] MEDS: Morphine 2 MG/ML Syringe IV (05:54)
[2021-11-11] MEDS: Insulin Lispro 100 UNIT/ML INSULN.PEN SC ×4 (06:31→20:42)
[2021-11-11 06:36] LABS: Bedside Glucose 215 mg/dL (70-110)
[2021-11-11 08:42] VITALS: BP 161/93; PULSE 84; RESP 16; TEMP 36.9; O2SAT 97
[2021-11-11] MEDS: Aspirin E.C. 81 MG Tablet PO (08:55)
[2021-11-11] MEDS: Enoxaparin 40 MG/0.4 ML Syringe SC (08:57)
[2021-11-11] MEDS: Naproxen 500 MG Tablet PO ×2 (08:57→20:47)
[2021-11-11] MEDS: Carvedilol 3.125 MG TABLET PO ×2 (08:57→20:47)
[2021-11-11] MEDS: Cholecalciferol (VIT D3) 25 MCG TABLET (1,000 UNITS) 50 MCG PO (08:58)
[2021-11-11 11:51] LABS: Bedside Glucose 251 mg/dL (70-110)
--- NOTE | 2021-11-11 12:40 | PN.HOSP_ITS ---
Subjective Subjective Feels well. Wants to go home. Objective Data Objective Data Vital Signs: Vital Signs Temp Pulse Resp BP Pulse Ox 36.9 C 84 16 161/93 H 97 11/11/21 08:42 11/11/21 08:42 11/11/21 08:42 11/11/21 08:42 11/11/21 08:42 Oxygen Delivery Method Room Air Weight: 114.396 kg Body Mass Index (BMI) 33.3 Intake & Output: Intake and Output for Last 24 Hours 11/09/21 11/10/21 11/11/21 23:59 23:59 23:59 Intake Total 2100.00 / 2100.00 2856 / 2856 220 / 220 Output Total 2300 / 3150 3450 / 3950 1100 / 1100 Balance -200.00 / -1050.00 -594 / -1094 -880 / -880 Lab / Micro Data Result Diagrams: 11/10/21 05:45 11/11/21 04:15 Labs: Laboratory Results - last 24 hr 11/10/21 16:22: POC Glucose 191 H 11/10/21 22:09: POC Glucose 255 H 11/11/21 04:15: Sodium 137, Potassium 4.2, Chloride 104, Carbon Dioxide 27.0, Anion Gap 6, BUN 18, Creatinine 0.81, Estim Creat Clear Calc 101.38, Est GFR (MDRD) Af Amer 122, Est GFR (MDRD) Non-Af 101, BUN/Creatinine Ratio 22.2 H, Glucose 224 H, Calcium 8.7 11/11/21 06:30: POC Glucose 215 H 11/11/21 11:41: POC Glucose 251 H Micro: Microbiology 11/08/21 17:55 Blood Culture (Wb) - Anticubital Right Blood Culture - Preliminary No growth in 48 hours. 11/08/21 17:45 Blood Culture (Wb) - Anticubital Left Blood Culture - Preliminary No growth in 48 hours. Radiography Diagnostic Testing: Radiology Impression Lower Extremity MRI 11/09/21 12:24 IMPRESSION: 1. Moderate subcutaneous edema is present over the dorsum of the foot, consistent with cellulitis and reactive inflammation. 2. No soft tissue abscess 3. Mild marrow edema is present on the plantar surface of the head of the second metatarsal bone, see image #13/30 series 4, this is likely reactive or due to stress edema, and there is no overlying cortical erosion or intramedullary lysis or other findings related to active osteomyelitis. 4. No evidence of marrow edema or osteomyelitis in the remaining bony structures. Electronically Signed: Edwin Toro MD at 16:06 EST Reading Location ID and State: [facility] / [place] , Service support , ADDENDUM: 11/10/21 1511 Physical Exam Const alert and no apparent distress Resp normal respiratory effort, no retractions, no use of accessory muscles and clear to auscultation bilaterally Cardio regular rate, regular rhythm, S1 normal heart sound and S2 normal heart sound GI normal to inspection, nondistended, normoactive bowel sounds, soft to palpation, non-tender and non-distended Extremity Extremity Narrative: Still with edema on the patient's left forefoot and extending to his ankle. Indurated. Skin is still sloughing off of that. Assessment & Plan Assessment/Plan (1) Diabetic foot infection: PLAN: 1. left foot cellulitis improved subjectively diabetic associated failed outpt antibiotics on pip/tazo and vancomycin podiatry and ID on consult ESR and CRP elevated concern for OM. MRI showed no osteomyelitis nor abscess no surgery at this time. Check an ankle-brachial index as I feel that patient's lack of significant improvement is probably a component of poor blood supply. Patient overall appears better though his foot does not. May need to consider repeat imaging of his foot to see this pending development of any abscess. 2. DM2 fair control continue basal and SSI 3. VTE prophylaxis: SCDs. add enoxaparin Charges/Coding Visit Charges Inpatient E&M: 82607 Subs Hosp L2
[2021-11-11 14:59] VITALS: BP 154/86; PULSE 87; RESP 16; TEMP 36.7; O2SAT 94
--- NOTE | 2021-11-11 16:24 | CASEMGMT ---
Addendum entered by Steffany Phipps 11/11/21 16:53: Patient was provided a list of [facility] providers including quality and resource use data and consistent with the patient?s preferred geographic region, medical needs, and insurance network. The patient?s preferred provider [facility] and [facility]. TC giovani Escobar at [facility], referral faxed, pt accepted. Green sheet on chart in case of w/e dc. Original Note: TAMMIE CHILDS in to pt room. Pt states he is agreeable to [facility] at this time for SN. TAMMIE CHILDS to provide list of [facility] agencies. Awaiting clarification on pt insurance for this.
[2021-11-11 16:26] LABS: Bedside Glucose 279 mg/dL (70-110)
[2021-11-11 19:56] VITALS: BP 147/81; PULSE 81; RESP 18; TEMP 37.2; O2SAT 98
[2021-11-11 20:50] LABS: Bedside Glucose 272 mg/dL (70-110)
[2021-11-11 21:08] LABS: Vancomycin, Trough Level 14.5 ug/mL (5.0-15.0)
--- NOTE | 2021-11-11 21:40 | PCM.RX.CS ---
Consult Pharmacy has been consulted to manage selected antiobiotic: Vancomycin Type of Consult: Follow-up Suspected Infection: Skin/Soft tissue Prior Doses of Antibiotics Received/Current Regimen: Medications Vancomycin HCl 1,750 mg/ (Sodium Chloride) 535 mls @ 250 mls/hr IV Q12H KAREN Last Admin: 11/11/21 20:39 Dose: 250 mls/hr Labs: Sodium 137 mmol/L (136-145) 11/11/21 04:15 Potassium 4.2 mmol/L (3.5-5.1) 11/11/21 04:15 Chloride 104 mmol/L (98-107) 11/11/21 04:15 Carbon Dioxide 27.0 mmol/L (21.0-32.0) 11/11/21 04:15 Anion Gap 6 (5-15) 11/11/21 04:15 BUN 18 mg/dL (7-18) 11/11/21 04:15 Creatinine 0.81 mg/dL (0.70-1.30) 11/11/21 04:15 Est GFR (MDRD) Af Amer 122 mL/min (>60) 11/11/21 04:15 Est GFR (MDRD) Non-Af 101 mL/min (>60) 11/11/21 04:15 BUN/Creatinine Ratio 22.2 RATIO (10-20) H 11/11/21 04:15 Glucose 224 mg/dL (74-106) H 11/11/21 04:15 Vancomycin Trough 14.5 ug/mL (5.0-15.0) 11/11/21 20:25 Random Vancomycin 16.0 ug/mL (0.0-15.0) H 11/10/21 05:45 Microbiology: Microbiology 11/08/21 17:55 Blood Culture (Wb) - Anticubital Right Blood Culture - Preliminary No growth in 48 hours. 11/08/21 17:45 Blood Culture (Wb) - Anticubital Left Blood Culture - Preliminary No growth in 48 hours. Weight used for dosin kg Estimated Creatinine Clearance: 101 Goal Trough: 15-20 mcg/mL Pharmacy Plan for Drug Dosing: Vancomycin trough level was 14.5, just below target range. It was an appropriate 11.5hr level. With the trending levels and SCr, we will continue the same dosing and re-draw a trough in 2 days. Pharmacy Service will continue to monitor and adjust dosing as required. Follow-Up Labs: Trough Vancomycin Labs to be done on [date and time ordered]: 11/13/21 @0584
[2021-11-12 02:30] VITALS: BP 156/82; PULSE 83; RESP 18; TEMP 36.9; O2SAT 96
[2021-11-12] MEDS: Acetaminophen 325 MG Tablet 650 MG PO ×2 (02:37→17:07)
[2021-11-12] MEDS: oxyCODONE 5 MG Tablet PO ×3 (02:37→22:37)
[2021-11-12 04:55] LABS: Absolute Lymphocyte Count 0.71 X10^3/uL (0.83-4.51); Absolute Neutrophil Count 4.1 X10^3/uL (2.0-7.7); Basophil# 0.03 X10^3/uL; Basophil% 0.6 % (0-1); Eosinophil# 0.13 X10^3/uL; Eosinophils% 2.4 % (0-5); Hematocrit 32.9 % (40-54); Hemoglobin 10.8 g/dL (13.0-16.5); Lymphocyte # 0.71 X10^3/ul (0.83-4.51); Lymphocyte % 13.1 % (19-41); Mean Corp Hgb Conc 32.8 g/dL (32-36); Mean Corpuscular Hgb 28.5 pg (27.0-32.0); Mean Corpuscular Volume 86.8 fL (80-94); Mean Platelet Vol. 8.6 fl (6.2-12.0); Monocyte# 0.44 X10^3/uL; Monocyte% 8.1 % (0-10); NRBC Flagged by Analyzer 0 % (0-5); Neutrophil # 4.08 X10^3/uL (2.7-7.7); Neutrophil % 75.6 % (47-70); Platelet Count 161 K/mm3 (150-450); RBC Distribution Width CV 13.2 % (11.6-14.6); RBC Distribution Width SD 41.8 fl (35.1-43.9); Red Blood Count 3.79 M/mm3 (4.6-6.2); White Blood Count 5.4 K/mm3 (4.4-11.0)
[2021-11-12 05:18] LABS: Anion Gap 5 (5-15); BUN 17 mg/dL (7-18); BUN/Creat Ratio 23.4 RATIO (10-20); Calcium,Total 8.5 mg/dL (8.5-10.1); Chloride 104 mmol/L (98-107); Creatinine, Serum 0.72 mg/dL (0.70-1.30); EST Glomerular Filtration Rate 115 mL/min (>60); Est Glom Filt Rate - Afr Amer 139 mL/min (>60); Estimated Creatinine Clearance 82.12 ml/min; Glucose 215 mg/dL (74-106); Potassium 4.2 mmol/L (3.5-5.1); Sodium Level 135 mmol/L (136-145)
[2021-11-12] MEDS: Gabapentin 300 MG Capsule PO ×3 (06:27→22:37)
[2021-11-12] MEDS: Cefazolin 2 GM in 0.9% Normal Saline 100 ML IV ×3 (06:27→22:37)
[2021-11-12] MEDS: Insulin Lispro 100 UNIT/ML INSULN.PEN SC ×4 (06:30→20:19)
[2021-11-12 06:40] LABS: Bedside Glucose 189 mg/dL (70-110)
[2021-11-12] MEDS: Aspirin E.C. 81 MG Tablet PO (08:08)
--- NOTE | 2021-11-12 10:32 | CT_ITS ---
STUDY: CT LOWER EXTREMITY WITH CONTRAST INJECTION LEFT LEFT REASON FOR EXAM: Male, 66 years old. Left foot cellulitis RADIATION DOSAGE (If Supplied By Facility): CTDIvol = ( 15.35 ) mGy, DLP = ( 607.06 ) mGycm. Individualized dose optimization techniques were used for this CT.? TECHNIQUE: Duplex images of the left lower extremity were obtained after administration of IV contrast. 100 mL of Omnipaque, 300 were reviewed. Sagittal coronal reformatted imaging is performed. COMPARISON: October 30, 2021 left ankle x-ray FINDINGS: There is visualized soft tissue edema especially in the dorsal aspect of the foot without visualized focal or drainable abscess collection. There is minimal edema in the deeper soft tissues around the tendons. Primarily the soft tissue edema is peripheral and there is skin thickening compatible with cellulitis. There is no visualized bony erosion. There is enthesopathy at the Achilles insertion. There is plantar spurring. There is degenerative change in the tarsotarsal joints. CT/Extremity Lower WITH Contrast IMPRESSION: No visualized focal enhancing collection. There is diffuse soft tissue edema involving primarily the dorsal and lateral aspect of the foot and ankle. This is most compatible with cellulitis. Electronically Signed: Natalie Michelle MD at 11:29 EST Reading Location ID and State: [facility] / [place] Tel , Service support ,
--- NOTE | 2021-11-12 10:37 | PCM.PN.HOSP ---
Subjective Subjective left foot feeling better. Objective Data Objective Data Vital Signs: Vital Signs Temp Pulse Resp BP Pulse Ox 36.9 C 83 18 156/82 H 96 11/12/21 02:30 11/12/21 02:30 11/12/21 02:30 11/12/21 02:30 11/12/21 02:30 Oxygen Delivery Method Room Air Weight: 114.396 kg Body Mass Index (BMI) 33.3 Intake & Output: Intake and Output for Last 24 Hours 11/10/21 11/11/21 11/12/21 23:59 23:59 23:59 Intake Total 2856 / 2856 1510 / 1810 1010 / 1010 Output Total 3450 / 3950 1100 / 1350 650 / 650 Balance -594 / -1094 410 / 460 360 / 360 Lab / Micro Data Result Diagrams: 11/12/21 04:48 11/12/21 04:48 Labs: Laboratory Results - last 24 hr 11/11/21 11:41: POC Glucose 251 H 11/11/21 16:10: POC Glucose 279 H 11/11/21 20:25: Vancomycin Trough 14.5 11/11/21 20:37: POC Glucose 272 H 11/12/21 04:48: WBC 5.4, RBC 3.79 L, Hgb 10.8 L, Hct 32.9 L, MCV 86.8, MCH 28.5, MCHC 32.8, RDW Std Deviation 41.8, RDW Coeff of Hakeem 13.2, Plt Count 161, MPV 8.6, Immature Gran % (Auto) 0.200, Neut % (Auto) 75.6 H, Lymph % (Auto) 13.1 L, [place] % (Auto) 8.1, Eos % (Auto) 2.4, Baso % (Auto) 0.6, Absolute Neuts (auto) 4.1, Absolute Lymphs (auto) 0.71 L, Nucleated RBC % 0 11/12/21 04:48: Sodium 135 L, Potassium 4.2, Chloride 104, Carbon Dioxide 26.0, Anion Gap 5, BUN 17, Creatinine 0.72, Estim Creat Clear Calc 82.12, Est GFR (MDRD) Af Amer 139, Est GFR (MDRD) Non-Af 115, BUN/Creatinine Ratio 23.4 H, Glucose 215 H, Calcium 8.5 11/12/21 06:29: POC Glucose 189 H Micro: Microbiology 11/08/21 17:55 Blood Culture (Wb) - Anticubital Right Blood Culture - Preliminary No growth in 48 hours. 11/08/21 17:45 Blood Culture (Wb) - Anticubital Left Blood Culture - Preliminary No growth in 48 hours. Physical Exam Const alert and no apparent distress Extremity Extremity Narrative: Still swelling over the dorsum of his foot and ankle. Erythema seems to be resolving. Still with skin sloughing over his foot. Neuro Sensorium / Orientation: awake and alert Psych affect normal Assessment & Plan Assessment/Plan (1) Diabetic foot infection: PLAN: 1. left foot cellulitis improved subjectively diabetic associated failed outpt antibiotics on pip/tazo and vancomycin podiatry and ID on consult ESR and CRP elevated concern for OM. MRI showed no osteomyelitis nor abscess no surgery at this time. Check an ankle-brachial index as I feel that patient's lack of significant improvement is probably a component of poor blood supply. Patient overall appears better though his foot does not. Will check CT to see has been a development of any abscess. If not then plan would be, if he is improving, for him to be discharged on the 6 with oral antibiotics. 2. DM2 fair control continue basal and SSI 3. VTE prophylaxis: SCDs. add enoxaparin Charges/Coding Visit Charges Inpatient E&M: 11150 Subs Hosp L2
--- NOTE | 2021-11-12 10:57 | NURSING ---
1045-off unit via bed for ordered procedure
[2021-11-12 11:28] VITALS: BP 155/83; PULSE 71; RESP 16; TEMP 36.8; O2SAT 97
[2021-11-12] MEDS: Naproxen 500 MG Tablet PO ×2 (11:30→22:37)
[2021-11-12] MEDS: Carvedilol 3.125 MG TABLET PO ×2 (11:30→22:37)
[2021-11-12] MEDS: Enoxaparin 40 MG/0.4 ML Syringe SC (11:30)
[2021-11-12] MEDS: Cholecalciferol (VIT D3) 25 MCG TABLET (1,000 UNITS) 50 MCG PO (11:31)
[2021-11-12 11:46] LABS: Bedside Glucose 272 mg/dL (70-110)
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
[2021-11-12] MEDS: 0.9% Saline Lock 10 ML Syringe IV (15:17)
[2021-11-12 15:25] VITALS: BP 144/75; PULSE 83; RESP 16; TEMP 36.6; O2SAT 95
[2021-11-12 17:06] LABS: Bedside Glucose 223 mg/dL (70-110)
[2021-11-12 20:09] VITALS: BP 147/88; PULSE 83; RESP 18; TEMP 36.8; O2SAT 95
[2021-11-12 21:21] LABS: Bedside Glucose 326 mg/dL (70-110)
[2021-11-13 03:01] VITALS: BP 145/70; PULSE 80; RESP 18; TEMP 37.1; O2SAT 96
[2021-11-13 05:48] LABS: Absolute Lymphocyte Count 0.71 X10^3/uL (0.83-4.51); Absolute Neutrophil Count 3.3 X10^3/uL (2.0-7.7); Basophil# 0.02 X10^3/uL; Basophil% 0.4 % (0-1); Eosinophil# 0.14 X10^3/uL; Hematocrit 33.7 % (40-54); Hemoglobin 11.3 g/dL (13.0-16.5); Lymphocyte # 0.71 X10^3/ul (0.83-4.51); Lymphocyte % 15.3 % (19-41); Mean Corp Hgb Conc 33.5 g/dL (32-36); Mean Corpuscular Volume 86.4 fL (80-94); Mean Platelet Vol. 8.8 fl (6.2-12.0); Monocyte# 0.46 X10^3/uL; Monocyte% 9.9 % (0-10); NRBC Flagged by Analyzer 0 % (0-5); Neutrophil # 3.28 X10^3/uL (2.7-7.7); Platelet Count 181 K/mm3 (150-450); RBC Distribution Width CV 13.2 % (11.6-14.6); RBC Distribution Width SD 41.5 fl (35.1-43.9); White Blood Count 4.6 K/mm3 (4.4-11.0)
[2021-11-13 06:01] LABS: Anion Gap 4 (5-15); BUN 17 mg/dL (7-18); BUN/Creat Ratio 21.2 RATIO (10-20); Calcium,Total 8.5 mg/dL (8.5-10.1); Chloride 104 mmol/L (98-107); EST Glomerular Filtration Rate 102 mL/min (>60); Est Glom Filt Rate - Afr Amer 124 mL/min (>60); Estimated Creatinine Clearance 102.65 ml/min; Glucose 199 mg/dL (74-106); Potassium 4.2 mmol/L (3.5-5.1); Sodium Level 136 mmol/L (136-145)
[2021-11-13] MEDS: Gabapentin 300 MG Capsule PO (06:38)
[2021-11-13] MEDS: Acetaminophen 325 MG Tablet 650 MG PO (06:38)
[2021-11-13] MEDS: Cefazolin 2 GM in 0.9% Normal Saline 100 ML IV (06:38)
[2021-11-13] MEDS: oxyCODONE 5 MG Tablet PO (06:38)
[2021-11-13] MEDS: Insulin Lispro 100 UNIT/ML INSULN.PEN SC ×2 (06:42→11:09)
[2021-11-13 06:45] LABS: Bedside Glucose 209 mg/dL (70-110)
[2021-11-13] MEDS: Aspirin E.C. 81 MG Tablet PO (07:43)
[2021-11-13 09:12] VITALS: BP 147/98; PULSE 99; RESP 16; TEMP 36.9; O2SAT 96
[2021-11-13 09:15] LABS: Vancomycin, Trough Level 16.8 ug/mL (5.0-15.0)
[2021-11-13] MEDS: Carvedilol 3.125 MG TABLET PO (09:19)
[2021-11-13] MEDS: Naproxen 500 MG Tablet PO (09:19)
[2021-11-13] MEDS: Cholecalciferol (VIT D3) 25 MCG TABLET (1,000 UNITS) 50 MCG PO (09:19)
[2021-11-13] MEDS: Enoxaparin 40 MG/0.4 ML Syringe SC (09:19)
--- NOTE | 2021-11-13 09:46 | DCINST_ITS ---
Discharge Instructions Diet Discharge Diet: 2000 Calorie Control Diet Activity Discharge Activity: Return to Normal Activity Dressing / Incision Call your doctor if your incision/area has: Continuous Slow Oozing, Increased Redness and Foul Smelling Discharge Call your doctor if you observe: Fever of 101 or Higher Follow Up Care Test Results: Test results from this visit will be discussed in further detail at your follow-up appointment, if applicable. Discharge Plan Admission Admit Date/Time: 11/08/21 19:53 Primary Reason for Your Visit: LLE cellulitis Attending Provider: Enoch Carrizales Primary Care Provider: [facility],[place] Consulting Providers: Deonte Flowers ; Leanne Medrano Discharge Orders/Prescriptions Prescriptions: New oxycodone 5 mg Tablet 5 mg PO Q4H PRN PRN (Reason: pain (scale score 7-10)) 3 Days Qty: 12 RF: 0 sulfamethoxazole-trimethoprim [Bactrim DS] 800-160 mg tablet 1 tab PO BID Qty: 8 RF: 0 Continued carvedilol 3.125 MG tablet 3.125 mg PO BID RF: 0 gabapentin 300 MG capsule 300 mg PO TID RF: 0 cholecalciferol (vitamin D3) 2,000 UNIT capsule 2,000 unit PO DAILY RF: 0 aspirin 81 MG tablet 81 mg PO DAILY@0800 RF: 0 naproxen 500 MG tablet 500 mg PO BID RF: 0 insulin glargine 100 UNITS/ML insulin pen 50 units subcut BREAKFAST RF: 0 Emollient Combination No.72 [Eucerin Intensive Repair] 1 APPLIC lotion 1 applic topical 0600,2200 RF: 0 insulin lispro 100 unit/mL Insulin Pen 15 unit SUBCUT TID RF: 0 Held metformin 1,000 MG tablet 1,000 mg PO BID RF: 0 Hold Instructions: Resume on 11/17/21. Referrals / Follow Up: [facility] [Primary Care Provider] - In 1 Week Disposition Disposition (needs filled in before D/C Order can be placed): Home Health Servi ce
--- NOTE | 2021-11-13 10:00 | PHA.PHARE_ITS ---
Consult Pharmacy has been consulted to manage selected antiobiotic: Vancomycin Type of Consult: Follow-up Suspected Infection: Skin/Soft tissue Labs: Sodium 136 mmol/L (136-145) 11/13/21 05:30 Potassium 4.2 mmol/L (3.5-5.1) 11/13/21 05:30 Chloride 104 mmol/L (98-107) 11/13/21 05:30 Carbon Dioxide 28.0 mmol/L (21.0-32.0) 11/13/21 05:30 Anion Gap 4 (5-15) L 11/13/21 05:30 BUN 17 mg/dL (7-18) 11/13/21 05:30 Creatinine 0.80 mg/dL (0.70-1.30) 11/13/21 05:30 Est GFR (MDRD) Af Amer 124 mL/min (>60) 11/13/21 05:30 Est GFR (MDRD) Non-Af 102 mL/min (>60) 11/13/21 05:30 BUN/Creatinine Ratio 21.2 RATIO (10-20) H 11/13/21 05:30 Glucose 199 mg/dL (74-106) H 11/13/21 05:30 Vancomycin Trough 16.8 ug/mL (5.0-15.0) H 11/13/21 08:25 Random Vancomycin 16.0 ug/mL (0.0-15.0) H 11/10/21 05:45 Microbiology: Microbiology 11/08/21 17:55 Blood Culture (Wb) - Anticubital Right Blood Culture - Preliminary No growth in 48 hours. 11/08/21 17:45 Blood Culture (Wb) - Anticubital Left Blood Culture - Preliminary No growth in 48 hours. Goal Trough: 15-20 mcg/mL Pharmacy Plan for Drug Dosing: VANCOMYCIN LEVEL RECEIVED Current Vancomycin Dose: 1750mg q12h (,) Number of Doses Received: x6 of current dose Vancomycin Level: 16.8 Hours Since Last Dose: 12 hours Renal Function: SrCr 0.80 Renal Function Trend: stable Lab/Micro: Vancomycin Plan/Comments: recommend continuing current dose 1750mg q12h. repo rted trough of 16.8 is within goal trough range of 15-20. Pending Level: 11/15/21 at 0830 Pharmacy Service will continue to monitor and adjust dosing as required. Follow-Up Labs: Trough Vancomycin - 11/15/21 at 0830
--- NOTE | 2021-11-13 10:04 | DS.PCM_ITS ---
Providers Date of Admission: 11/08/21 Primary Care Physician: [facility] Consultations 11/08/21 21:02 Consult: Infectious Disease Routine Consulting Provider: Deonte Flowers Reason for Consult: left leg swelling and cellulitis EMERGENT Consult: No MD Notified: Yes Date Notified: 11/09/21 Time Notified: 05:36 Method of Notification: Answering Service Consult: Podiatry Routine Consulting Provider: Leanne Medrano Reason for Consult: Left foot swelling EMERGENT Consult: No Notified: Yes Date Notified: 11/09/21 Time Notified: 07:32 Method of Notification: Answering Service 11/10/21 09:40 Consult: Onc/Wound/project engineer chemicals Routine Comment: Reason For Visit: CELLULITIS Diagnosis Discharge Diagnosis (1) History of transmetatarsal amputation of right foot: Status: Acute Code(s): Z89.431 - Acquired absence of right foot (2) Diabetes mellitus with diabetic polyneuropathy: Status: Acute Code(s): E11.42 - Type 2 diabetes mellitus with diabetic polyneuropathy (3) Cellulitis of left lower extremity: Status: Acute Code(s): L03.116 - Cellulitis of left lower limb (4) H/O drug abuse: Status: Acute Code(s): F19.11 - Other psychoactive substance abuse, in remission (5) H/O alcohol abuse: Status: Acute Code(s): F10.11 - Alcohol abuse, in remission (6) Vitamin D deficiency: Status: Chronic Code(s): E55.9 - Vitamin D deficiency, unspecified Medications at Discharge Home Medications carvedilol 3.125 mg PO BID 08/18/19 cholecalciferol (vitamin D3) 2,000 unit PO DAILY 08/18/19 gabapentin 300 mg PO TID 08/18/19 metformin 1,000 mg PO BID 08/18/19 Emollient Combination No.72 [Eucerin Intensive Repair] 1 applic TOPICAL 0600,2 200 07/08/20 aspirin 81 mg PO DAILY@0800 07/08/20 insulin glargine 50 units SUBCUT BREAKFAST 07/08/20 naproxen 500 mg PO BID 07/08/20 insulin lispro 15 unit SUBCUT TID 11/08/21 oxycodone 5 mg PO Q4H PRN PRN 3 Days #12 tab 11/13/21 sulfamethoxazole-trimethoprim [Bactrim DS] 1 tab PO BID #8 tab 11/13/21 Hospital Course Operations None Procedures None Summary of Care Provided Minutes Spent on Discharge: 32 Hospital Course: 68-year-old male presents with left lower extremity cellulitis. Peers been treated with the doxycycline but his leg continue to get worse. Catheter point where skin is starting to slough off and he was having blisters on his skin. Patient was started on vancomycin and cefazolin. Seen in consultation by infectious disease and podiatry. MRI of his foot did not show any osteomyelitis nor abscess. Repeat imaging with a CAT scan on the did not show any develop any abscess. Overall, his foot is improving. Patient will continue with local wound care. Patient will be discharged with home health care. Physical Exam Const alert Extremity Extremity Narrative: Erythema lower extremities sloughing skin but overall erythema is improved as well as the swelling. Weight / BMI Weight Weight: 114.396 kg Body Mass Index (BMI) 33.3 ABG / Lab / Microbiology Data Result Diagrams: 11/13/21 05:30 11/13/21 05:30 Laboratory: Laboratory Results - last 24 hr 11/12/21 11:34: POC Glucose 272 H 11/12/21 16:56: POC Glucose 223 H 11/12/21 20:17: POC Glucose 326 H 11/13/21 05:30: WBC 4.6, RBC 3.90 L, Hgb 11.3 L, Hct 33.7 L, MCV 86.4, MCH 29.0, MCHC 33.5, RDW Std Deviation 41.5, RDW Coeff of Hakeem 13.2, Plt Count 181, MPV 8.8, Immature Gran % (Auto) 0.400, Neut % (Auto) 71.0 H, Lymph % (Auto) 15.3 L, [place] % (Auto) 9.9, Eos % (Auto) 3.0, Baso % (Auto) 0.4, Absolute Neuts (auto) 3.3, Absolute Lymphs (auto) 0.71 L, Nucleated RBC % 0 11/13/21 05:30: Sodium 136, Potassium 4.2, Chloride 104, Carbon Dioxide 28.0, Anion Gap 4 L, BUN 17, Creatinine 0.80, Estim Creat Clear Calc 102.65, Est GFR (MDRD) Af Amer 124, Est GFR (MDRD) Non-Af 102, BUN/Creatinine Ratio 21.2 H, Glucose 199 H, Calcium 8.5 11/13/21 06:41: POC Glucose 209 H 11/13/21 08:25: Vancomycin Trough 16.8 H Microbiology: Microbiology 11/08/21 17:55 Blood Culture (Wb) - Anticubital Right Blood Culture - Preliminary No growth in 48 hours. 11/08/21 17:45 Blood Culture (Wb) - Anticubital Left Blood Culture - Preliminary No growth in 48 hours. Radiography Diagnostic Testing: Radiology Impression Lower Extremity CT 11/12/21 10:32 IMPRESSION: No visualized focal enhancing collection. There is diffuse soft tissue edema involving primarily the dorsal and lateral aspect of the foot and ankle. This is most compatible with cellulitis. Electronically Signed: Natalie Michelle MD at 11:29 EST Reading Location ID and State: [facility] the [facility] / [place] Tel , Service support , D/C Instructions Discharge Diet: 2000 Calorie Control Diet Call your doctor if your incision/area has: Continuous Slow Oozing, Increased Redness and Foul Smelling Discharge Call your doctor if you observe: Fever of 101 or Higher Meaningful Use Info Meaningful Use Diagnoses (Choose all that apply): None applicable Discharge Plan Admission Admit Date/Time: 11/08/21 19:53 Primary Reason for Your Visit: LLE cellulitis Attending Provider: Enoch Carrizales Primary Care Provider: [facility],[place] Consulting Providers: Deonte Flowers ; Leanne Medrano Discharge Orders/Prescriptions Prescriptions: New oxycodone 5 mg Tablet 5 mg PO Q4H PRN PRN (Reason: pain (scale score 7-10)) 3 Days Qty: 12 RF: 0 sulfamethoxazole-trimethoprim [Bactrim DS] 800-160 mg tablet 1 tab PO BID Qty: 8 RF: 0 Continued carvedilol 3.125 MG tablet 3.125 mg PO BID RF: 0 gabapentin 300 MG capsule 300 mg PO TID RF: 0 cholecalciferol (vitamin D3) 2,000 UNIT capsule 2,000 unit PO DAILY RF: 0 aspirin 81 MG tablet 81 mg PO DAILY@0800 RF: 0 naproxen 500 MG tablet 500 mg PO BID RF: 0 insulin glargine 100 UNITS/ML insulin pen 50 units subcut BREAKFAST RF: 0 Emollient Combination No.72 [Eucerin Intensive Repair] 1 APPLIC lotion 1 applic topical 0600,2200 RF: 0 insulin lispro 100 unit/mL Insulin Pen 15 unit SUBCUT TID RF: 0 Held metformin 1,000 MG tablet 1,000 mg PO BID RF: 0 Hold Instructions: Resume on 11/17/21. Referrals / Follow [facility] [Primary Care Provider] - In 1 Week Disposition Disposition (needs filled in before D/C Order can be placed): Home Health Service Charges/Coding Visit Charges Inpatient E&M: 42407 Disch Hosp
[2021-11-13 11:16] LABS: Bedside Glucose 270 mg/dL (70-110)
== END 2021-11-13 12:48 | disposition home health service (06) | DRG 638 ==
LOC: ED 19:44 → MS3 20:07
PROVIDERS: Anesthesiology; Admitting Provider Hospitalist; Emergency Provider Emergency Medicine
DX: E11.628 Type 2 diabetes mellitus with other skin complications (principal); L03.116 Cellulitis of left lower limb; E11.621 Type 2 diabetes mellitus with foot ulcer; E11.42 Type 2 diabetes mellitus with diabetic polyneuropathy; Z79.4 Long term (current) use of insulin; L97.509 Non-pressure chronic ulcer of other part of unspecified foot with unspecified severity; F19.11 Other psychoactive substance abuse, in remission; Z89.431 Acquired absence of right foot; I10 Essential (primary) hypertension; E78.5 Hyperlipidemia, unspecified; E55.9 Vitamin D deficiency, unspecified; F10.11 Alcohol abuse, in remission; Z79.82 Long term (current) use of aspirin; G89.29 Other chronic pain; Z87.891 Personal history of nicotine dependence; Z86.14 Personal history of Methicillin resistant Staphylococcus aureus infection; Z86.73 Personal history of transient ischemic attack (TIA), and cerebral infarction without residual deficits
CPT/HCPCS: 36415; 73701; 73718; 80048; 80076; 80202; 82962; 83036; 83605; 85025; 85652; 86140; 87040; 93005; 93971; 97802; 99285; J7030; J7040; Q9967; A4216; J2405

== ENCOUNTER 2021-12-02 15:39 | Inpatient (IN) | payer OTHER, SELFPAY ==
[2021-12-02] VITALS (11 sets, daily range): BP systolic 96–106; BP diastolic 52–86; PULSE 82–93; RESP 18–26; TEMP 36.4–36.8; O2SAT 96–100; BMI 31.8; BMI 32.2
--- NOTE | 2021-12-02 19:04 | EDS_ITS ---
HPI History of Present Illness Chief Complaint: Cellulitis Informant: patient and spouse/S.O. Onset/Context/Timing Onset: Today Timing: Continuous Current Severity: Moderate Maximum Severity: Moderate Narrative Narrative: Cc-year-old male history of diabetes, hep C, TIA, right partial foot amputation. Patient had cellulitis before. Today noted cellulitis in his right foot all the way up to his knee. Denies fever. Denies nausea or vomiting. Prior similar symptoms: Yes Recent Illness/Hospitalization: No PFSH PFSH Medical History Amputation foot, unilat Anxiety Anxiety Cellulitis Chest pain Chronic pain Debility Delayed wound healing Depression Depression Diabetes Diabetes mellitus with diabetic polyneuropathy Diabetic foot infection Diabetic foot ulcer Former smoker H/O alcohol abuse H/O alcohol abuse H/O drug abuse H/O drug abuse Hammer toe of right foot Hepatitis Hepatitis C Hyperlipidemia Hypertension Hypertension Insomnia Non-pressure chronic ulcer of other part of right foot with fat layer exposed Preop cardiovascular exam Pruritus Sleep apnea Stroke TIA (transient ischemic attack) Toe amputee Troponin I above reference range Type 2 diabetes mellitus with diabetic polyneuropathy Vitamin D deficiency Home Medications carvedilol 3.125 mg PO BID 08/18/19 [History Last Taken 12/02/21] cholecalciferol (vitamin D3) 2,000 unit PO DAILY 08/18/19 [History Last Taken 12/02/21] gabapentin 300 mg PO TID 08/18/19 [History Last Taken 12/02/21] metformin 1,000 mg PO BID 08/18/19 [History Last Taken 12/02/21] Emollient Combination No.72 [Eucerin Intensive Repair] 1 applic TOPICAL BID 07/08/20 [History Last Taken 12/02/21] aspirin 81 mg PO DAILY@0800 07/08/20 [History Last Taken 12/02/21] insulin glargine 58 units SUBCUT BREAKFAST 07/08/20 [History Last Taken 12/02/21] naproxen 500 mg PO BID 07/08/20 [History Last Taken 12/02/21] insulin lispro 15 unit SUBCUT TID 11/08/21 [History Last Taken 12/02/21] Allergy/AdvReac Type Severity Reaction Status Date / Time No Known Allergies Allergy Verified 12/02/21 15:42 Family History Other Cancer Diabetes Surgical History History of cholecystectomy History of hip surgery History of transmetatarsal amputation of right foot Social History Smoking Status: Former smoker ROS ROS ED ROS Narrative Right leg redness. Review of Systems ROS Unobtainable: Denies due to encephalopathy Constitutional Constitutional ED: Denies chills or fever(s) Eyes Eyes: Denies change in vision ENT ENT ED: Denies ear pain Cardiovascular Cardiovascular: Denies chest pain Respiratory/Chest Respiratory/Chest: Denies cough or dyspnea Gastrointestinal Gastrointestinal: Denies abdominal pain, diarrhea, nausea or vomiting Genitourinary Genitourinary ED: Denies dysuria Musculoskeletal Musculoskeletal: Denies myalgias Integumentary Reports rash Neurologic Neurologic: Denies headache(s) Psychiatric Psychiatric: Denies depression Endocrine Endocrinology: Denies polyuria Allergic/Immunologic Allergic/Immunologic ED: Denies urticaria EXAM Physical Exam Narrative Exam Narrative: 60-year-old male. Is awake and alert. Initial blood pressure is low at 99/52. Temperature is 92. Sat 97% on room air no hypoxia. HEENT exam unremarkable. Moist remembers. Neck nontender no lymphadenopathy. Lungs clear to auscultation bilaterally. Heart regular rhythm rate about 93 no murmur. Chest wall nontender. Abdomen soft nontender. Moving all 4 extremities. His right leg he has had amputation all the toes on his right foot from the tip of the right foot all the way up to his knee is cellulitis. Circumferential. It is red and tender. There is minimal edema. Left lower extremity has a bandage on it. He does have inguinal lymphadenopathy in the right groin. Tenderness. Neurologically is awake and alert. Const Vital Signs: 12/02/21 15:41 12/02/21 18:30 12/02/21 19:00 Temperature 97.6 F L 98.2 F 98.2 F Temperature Source Temporal Temporal Temporal Pulse Rate 93 89 83 Respiratory Rate 18 20 H 22 H Blood Pressure 96/68 99/86 H 99/52 L Blood Pressure Mean 77 90 67 Pulse Ox 98 98 97 Oxygen Delivery Method Room Air Room Air Room Air 12/02/21 19:01 12/02/21 19:03 12/02/21 19:45 Temperature 98.2 F Temperature Source Oral Pulse Rate 82 Respiratory Rate 26 H Blood Pressure 99/59 L Blood Pressure Mean 72 Pulse Ox 96 97 Oxygen Delivery Method Room Air Room Air Positive well nourished and well developed; Negative for cachectic, contractures or unkempt General Appearance ED: well developed and NAD; Negative for unkempt, cachectic, contractures, cyanotic or diaphoretic Nutritional Appearance: Negative for cachectic HEENT Reports moist mucous membranes tenderness; Negative for trauma Eyes PERRL and EOMs intact bilaterally Neck no lymphadenopathy, supple and no JVD General: Negative for tenderness Chest Wall inspection of chest normal and palpation of chest normal Resp normal respiratory effort and clear to auscultation bilaterally Effort and Inspection: Negative for pain with movement Auscultation: Negative for rales, rhonchi or wheezes Cardio regular rate, regular rhythm, S1 normal heart sound, S2 normal heart sound and no murmurs GI normal to inspection, nondistended, normoactive bowel sounds and no masses Auscultation: normoactive bowel sounds Palpation: soft; Negative for tender, guarding or rebound tenderness present Back/Spine no CVA tenderness Extremity Negative for normal to inspection Extremity Narrative: Right foot amputation all the toes. Cellulitis from the foot all the way up to his knee. Mildly tender. Red. Minimal swelling. General Extremety ED: Yes edema and tenderness General Extremity: edema Neuro oriented x3 Sensorium / Orientation: alert; Negative for orientation impaired, lethargic or stuporous Motor Exam: strength 5/5 throughout Psych mental status grossly normal Appearance: Negative for unkempt Skin No no rashes or lesions noted Skin Narrative: Right lower extremity cellulitis. Extensive. Rashes: rashes noted MDM MDM MDM Narrative Medical decision making narrative: Six 6-year-old diabetic male with extensive cellulitis of his right foot the knee. He may be septic from this he is definitely hypotensive with a pressure of 96/68. We treated with IV fluids. Septic work-up. Started on IV Unasyn. He will need to be admitted. Repeat exam patient received a liter of IV fluid. He has 2 large-bore IVs in. He is also received IV Unasyn. Blood pressures around 100. Have the hospitalist on page for admission. Patient is resting comfortably at this time. Lab Data Attestation: I reviewed the patient's lab results. Lab results narrative: CBC shows a white count 10.4. H&H 12.5 and 37.9. PT/INR of 14 and 1.2. PTT 39.7. Electrolytes show a sodium 128 consistent with hyp onatremia. Anion gap is 6. BUN of 34 creatinine 1.75. Glucose of 188. Liver enzymes are unremarkable. Lactic acid is normal 1.3. Labs: Laboratory Results - last 24 hr 12/02/21 12/02/21 12/02/21 19:00 19:00 19:00 WBC 10.4 RBC 4.40 L Hgb 12.5 L Hct 37.9 L MCV 86.1 MCH 28.4 MCHC 33.0 RDW Std Deviation 49.5 H RDW Coeff of Hakeem 15.8 H Plt Count 145 L MPV 9.7 Immature Gran % (Auto) 0.600 Neut % (Auto) 85.7 H Lymph % (Auto) 6.9 L Cochran % (Auto) 6.4 Eos % (Auto) 0.2 Baso % (Auto) 0.2 Absolute Neuts (auto) 8.9 H Absolute Lymphs (auto) 0.72 L Nucleated RBC % 0 PT 14.9 INR 1.2 APTT 39.7 H Sodium 128 L Potassium 4.2 Chloride 98 Carbon Dioxide 24.0 Anion Gap 6 BUN 34 H Creatinine 1.75 H Estim Creat Clear Calc 46.93 Est GFR (MDRD) Af Amer 50 L Est GFR (MDRD) Non-Af 42 L BUN/Creatinine Ratio 19.4 Glucose 188 H Lactic Acid Calcium 9.6 Total Bilirubin 2.20 H AST 41 H ALT 34 Alkaline Phosphatase 55 Total Protein 7.6 Albumin 3.0 L Globulin 4.6 H Albumin/Globulin Ratio 0.7 L 12/02/21 19:00 WBC RBC Hgb Hct MCV MCH MCHC RDW Std Deviation RDW Coeff of Hakeem Plt Count MPV Immature Gran % (Auto) Neut % (Auto) Lymph % (Auto) Cochran % (Auto) Eos % (Auto) Baso % (Auto) Absolute Neuts (auto) Absolute Lymphs (auto) Nucleated RBC % PT INR APTT Sodium Potassium Chloride Carbon Dioxide Anion Gap BUN Creatinine Estim Creat Clear Calc Est GFR (MDRD) Af Amer Est GFR (MDRD) Non-Af BUN/Creatinine Ratio Glucose Lactic Acid 1.3 Calcium Total Bilirubin AST ALT Alkaline Phosphatase Total Protein Albumin Globulin Albumin/Globulin Ratio Critical Care Time Critical Care Time: Yes Critical care time (excluding procedures): 30-74 minutes, Including time spent:, Discussing w/Patient &/or Family/Lockstitch Topstitcher, Discussing w/Consultants, Arranging Admission or Transfer, Performing Direct Patient Care at Bedside and - (33 min) Discharge Plan Dx/Rx/DC Orders Clinical Impression: Cellulitis of left lower extremity, Acute hypotension, Sepsis, History of diabetes mellitus, Acute kidney injury Disposition Disposition: [facility]
[2021-12-02] MEDS: 0.9% Normal Saline 1,000 ML 999 ML IV ×2 (19:22→20:20)
[2021-12-02 19:29] LABS: Absolute Lymphocyte Count 0.72 X10^3/uL (0.83-4.51); Absolute Neutrophil Count 8.9 X10^3/uL (2.0-7.7); Basophil# 0.02 X10^3/uL; Basophil% 0.2 % (0-1); Eosinophil# 0.02 X10^3/uL; Eosinophils% 0.2 % (0-5); Hematocrit 37.9 % (40-54); Hemoglobin 12.5 g/dL (13.0-16.5); Lymphocyte # 0.72 X10^3/ul (0.83-4.51); Lymphocyte % 6.9 % (19-41); Mean Corpuscular Hgb 28.4 pg (27.0-32.0); Mean Corpuscular Volume 86.1 fL (80-94); Mean Platelet Vol. 9.7 fl (6.2-12.0); Monocyte# 0.66 X10^3/uL; Monocyte% 6.4 % (0-10); NRBC Flagged by Analyzer 0 % (0-5); Neutrophil # 8.88 X10^3/uL (2.7-7.7); Neutrophil % 85.7 % (47-70); Platelet Count 145 K/mm3 (150-450); RBC Distribution Width CV 15.8 % (11.6-14.6); RBC Distribution Width SD 49.5 fl (35.1-43.9); White Blood Count 10.4 K/mm3 (4.4-11.0)
--- NOTE | 2021-12-02 19:45 | NURSING ---
Pt went into SVT at 180-190 rate. Had pt cough and was able to come out of it. monitor sr [address]s now[address] dr leone aware.
[2021-12-02 19:46] LABS: ALB/GLOB Ratio 0.7 RATIO (0.9-2.4); AST(SGOT) 41 U/L (15-37); Alanine Aminotransfer ALT/SGPT 34 U/L (16-61); Alkaline Phosphatase 55 U/L (45-117); Anion Gap 6 (5-15); BUN 34 mg/dL (7-18); BUN/Creat Ratio 19.4 RATIO (10-20); Calcium,Total 9.6 mg/dL (8.5-10.1); Chloride 98 mmol/L (98-107); Creatinine, Serum 1.75 mg/dL (0.70-1.30); EST Glomerular Filtration Rate 42 mL/min (>60); Est Glom Filt Rate - Afr Amer 50 mL/min (>60); Estimated Creatinine Clearance 46.93 ml/min; Globulin 4.6 g/dL (2.2-4.2); Glucose 188 mg/dL (74-106); Potassium 4.2 mmol/L (3.5-5.1); Protein, Total 7.6 g/dL (6.4-8.2); Sodium Level 128 mmol/L (136-145)
[2021-12-02 19:47] LABS: International Normalized Ratio 1.2; Prothrombin Time (Protime)PT. 14.9 SECONDS (11.7-14.9)
[2021-12-02 19:48] LABS: Partial Thromboplast Time 39.7 Seconds (24.1-36.2)
[2021-12-02 19:49] LABS: Lactic Acid 1.3 mmol/L (0.4-1.9)
--- NOTE | 2021-12-02 20:24 | HP.PCM.HOS_ITS ---
HPI - General General Date of Admission: 12/02/21 HPI Narrative DAMON WYLIE, is a 66 M with a significant history of diabetes mellitus and amputation of the toes of his right foot who presents with erythema of his right leg that he noticed on the same day of presentation. When patient woke up on the day of presentation he noticed some blood on the floor. Later on the day he noticed some redness of his right leg. Further he has swelling and pain of his right leg. Also he reports pain in his right groin. His pain in his right lower extremity increases with ambulation. Of note patient was recently admitted on 11/08/2021 and discharged on 11/13/2021 for the cellulitis of his left leg. [facility] Medical History Amputation foot, unilat Anxiety Anxiety Arthritis Cellulitis Chest pain Chronic pain Debility Delayed wound healing Depression Depression Diabetes Diabetes mellitus with diabetic polyneuropathy Diabetic foot infection Diabetic foot ulcer Former smoker H/O alcohol abuse H/O alcohol abuse H/O drug abuse H/O drug abuse Hammer toe of right foot Hepatitis Hepatitis C Hyperlipidemia Hypertension Hypertension Insomnia Non-pressure chronic ulcer of other part of right foot with fat layer exposed Preop cardiovascular exam Pruritus Sleep apnea Smoker Stroke TIA (transient ischemic attack) Toe amputee Troponin I above reference range Type 2 diabetes mellitus with diabetic polyneuropathy Vitamin D deficiency Home Medications carvedilol 3.125 mg PO BID 08/18/19 [History Last Taken 12/02/21] cholecalciferol (vitamin D3) 2,000 unit PO DAILY 08/18/19 [History Last Taken 12/02/21] gabapentin 300 mg PO TID 08/18/19 [History Last Taken 12/02/21] metformin 1,000 mg PO BID 08/18/19 [History Last Taken 12/02/21] Emollient Combination No.72 [Eucerin Intensive Repair] 1 applic TOPICAL BID 07/08/20 [History Last Taken 12/02/21] aspirin 81 mg PO DAILY@0800 07/08/20 [History Last Taken 12/02/21] insulin glargine 58 units SUBCUT BREAKFAST 07/08/20 [History Last Taken 12/02/21] naproxen 500 mg PO BID PRN 07/08/20 [History Last Taken 12/02/21] insulin lispro 15 unit SUBCUT TID 11/08/21 [History Last Taken 12/02/21] semaglutide [Ozempic] mg SUBCUT MO 12/02/21 [History Last Taken 11/28/21] Allergy/AdvReac Type Severity Reaction Status Date / Time No Known Allergies Allergy Verified 12/02/21 20:59 Family History Other Cancer Diabetes Surgical History History of cholecystectomy History of hip surgery History of transmetatarsal amputation of right foot Social History Smoking Status: Former smoker ROS ROS Narrative Constitutional: Denies fever, chills, fatigue, anorexia and change in weight Eyes: Denies blurry vision, change in eye color, change in vision, discharge from eye(s), double vision, erythema, eye pain, loss of vision or other HEENT: Denies abnormal hearing, dysphagia, ear pain, epistaxis, headache(s), hearing loss, nasal congestion, nasal discharge, post nasal drip, sinus pressure, sore throat or other Cardiovascular: Denies chest pain or palpitations. Denies dyspnea on exertion, orthopnea and paroxysmal nocturnal dyspnea Respiratory/Chest: Reports cough. Denies excessive phlegm production. Gastrointestinal: Denies abdominal pain, coffee ground emesis, constipation, diarrhea, dyspepsia, hematemesis, hematochezia, loose stools, melena, nausea, vomiting or other Genitourinary: Denies burning urination, difficulty urinating, dysuria, h ematuria, nocturia, urinary frequency, urinary hesitancy, urinary incontinence, urinary urgency or other Musculoskeletal: Denies arthralgias, back pain, joint pain, joint stiffness, joint swelling, myalgias, neck pain or other Neurologic: Denies abnormal gait, abnormal speech, confusion, disequilibrium, dizziness, focal weakness, headache(s), numbness, paresthesias, seizure-like activity, seizures, syncope, tingling, tremor(s) or other Psychiatric: Denies anxiety, depression, homicidal ideation, suicidal ideation or other Endocrinology: Denies change in body appearance, cold intolerance, excessive sweating, heat intolerance, polydipsia, polyuria or other Hematologic/Lymphatic: Denies anemia, easy bleeding, easy bruising, lymphadenopathy or other Integumentary: Erythema of right leg. skin changes of left leg. Allergic/Immunologic: Denies rhinitis, hives, eczema, asthma or other Vital Signs Vital Signs Vital Signs: 12/02/21 15:41 12/02/21 18:30 12/02/21 19:00 Temperature 97.6 F L 98.2 F 98.2 F Temperature Source Temporal Temporal Temporal Pulse Rate 93 89 83 Respiratory Rate 18 20 H 22 H Blood Pressure 96/68 99/86 H 99/52 L Blood Pressure Mean 77 90 67 Pulse Ox 98 98 97 Oxygen Delivery Method Room Air Room Air Room Air 12/02/21 19:01 12/02/21 19:03 12/02/21 19:45 Temperature 98.2 F Temperature Source Oral Pulse Rate 82 Respiratory Rate 26 H Blood Pressure 99/59 L Blood Pressure Mean 72 Pulse Ox 96 97 Oxygen Delivery Method Room Air Room Air 12/02/21 20:00 Temperature 97.8 F Temperature Source Temporal Pulse Rate 89 Respiratory Rate 18 Blood Pressure 100/63 Blood Pressure Mean 75 Pulse Ox 97 Oxygen Delivery Method Room Air Weight Weight: 109.316 kg Body Mass Index (BMI) 31.8 Physical Exam Narrative Physical exam: General: Well-nourished, well-developed. Head: Normocephalic, atraumatic, no tenderness Eyes: PERRLA, EOMI ENT, no trauma, moist mucous membranes, no rhinorrhea Neck: Nontender, full range of motion, no spinal tenderness, deformities, step- off CVS: Regular rate and rhythm. S1-S2 present. No murmur, gallop or rub. Respiratory : Mild wheezes. Clear to auscultation bilaterally, chest wall nontender Abdomen: Soft, nontender, nondistended, normal bowel sounds, no masses : Deferred Back: Nontender, no CVA tenderness, no midline spinal tenderness, deformities, step-offs Extremities: Erythema of right leg with lymphangitic streaking to right thigh and right groin lymphadenopathy. Skin: Erythema of right leg. Scaly rash and necrosis of left leg. Neuro: Alert, oriented, cranial nerves II through XII grossly intact. Psychiatry: Normal mood. Normal affect. Not depressed. Not anxious. Results Lab / Micro Data Result Diagrams: 12/02/21 19:00 12/02/21 19:00 Labs: Laboratory Results - last 24 hr 12/02/21 19:00: WBC 10.4, RBC 4.40 L, Hgb 12.5 L, Hct 37.9 L, MCV 86.1, MCH 28.4, MCHC 33.0, RDW Std Deviation 49.5 H, RDW Coeff of Hakeem 15.8 H, Plt Count 145 L, MPV 9.7, Immature Gran % (Auto) 0.600, Neut % (Auto) 85.7 H, Lymph % (Auto) 6.9 L, [place] % (Auto) 6.4, Eos % (Auto) 0.2, Baso % (Auto) 0.2, Absolute Neuts (auto) 8.9 H, Absolute Lymphs (auto) 0.72 L, Nucleated RBC % 0 12/02/21 19:00: PT 14.9, INR 1.2, APTT 39.7 H 12/02/21 19:00: Sodium 128 L, Potassium 4.2, Chloride 98, Carbon Dioxide 24.0, Anion Gap 6, BUN 34 H, Creatinine 1.75 H, Estim Creat Clear Calc 46.93, Est GFR (MDRD) Af Amer 50 L, Est GFR (MDRD) Non-Af 42 L, BUN/Creatinine Ratio 19.4, Glucose 188 H, Calcium 9.6, Total Bilirubin 2.20 H, AST 41 H, ALT 34, Alkaline Phosphatase 55, Total Protein 7.6, Albumin 3.0 L, Globulin 4.6 H, Albumin/Globulin Ratio 0.7 L 12/02/21 19:00: Lactic Acid 1.3 Assessment & Plan Assessment/Plan (1) Cellulitis of left lower extremity: (2) Sepsis: QUALIFIERS: Acute renal failure type: unspecified Sepsis acute organ dysfunction status: with acute organ dysfunction Sepsis type: sepsis due to unspecified organism Severe sepsis acute organ dysfunction type: acute renal failure Severe sepsis shock status: without septic shock Qualified Code(s): A41.9 - Sepsis, unspecified organism; R65.20 - Severe sepsis without septic shoc k; N17.9 - Acute kidney failure, unspecified (3) Acute kidney injury: (4) Diabetes: QUALIFIERS: Diabetes mellitus complication detail: with polyneuropathy Diabetes mellitus complication status: with neurologic complications Diabetes mellitus supervisor intermediates insulin use: with supervisor intermediates use Diabetes mellitus type: type 2 Qualified Code(s): E11.42 - Type 2 diabetes mellitus with diabetic polyneuropathy; 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 qSOFA score of 4 points (platelet 145; total bilirubin of 2.2; two maps of less than 70) Due to rapidity of symptoms suspect Streptococcus. Cefazolin ordered. We will add vancomycin to her regimen for now. De-escalate as necessary. Review of labs showed normal white counts. Trend CBC and CMP Diabetes mellitus with polyneuropathy Patient with hyperglycemia on presentation Home basal and prandial insulin adjusted. Hold Metformin. Accu-Chek QA CHS with correction scale insulin ordered. Gabapentin continued but dose reduced secondary to MATHEUS. MATHEUS Baseline creatinine of 0.8. His creatinine on presentation was 1.75. BUN is 34. BUN over creatinine is 19.4. MATHEUS likely secondary to sepsis. Received normal saline bolus in the emergency department. Gentle IV hydration. Avoid nephrotoxins. Trend CMP. Hyponatremia Sodium of 128. Gentle IV hydration ordered. Trend CMP. History of hypertension His blood pressure is low normal. Hold Coreg and resume when blood pressure is more stable. Trend blood pressures. Tobacco abuse Patient report that he resumed smoking recently because his left him. Counseled. Declined nicotine patch. Left leg wounds Continue home dressing Wound care consult DVT prophylaxis: SCD ordered. Charges/Coding Visit Charges Inpatient E&M: 38219 Init Hosp L3
[2021-12-02] MEDS: Gabapentin 100 MG Capsule PO (21:40)
[2021-12-02] MEDS: 0.9% Normal Saline 1,000 ML 75 ML IV (21:41)
[2021-12-02] MEDS: Insulin Lispro 100 UNIT/ML INSULN.PEN 10 UNIT SC (21:41)
[2021-12-02] MEDS: Insulin Lispro 100 UNIT/ML INSULN.PEN SC (21:43)
--- NOTE | 2021-12-02 22:25 | PCM.RX.CS ---
Consult Pharmacy has been consulted to manage selected antiobiotic: Vancomycin Type of Consult: New start Suspected Infection: Sepsis, Skin/Soft tissue Labs: Sodium 128 mmol/L (136-145) L 12/02/21 19:00 Potassium 4.2 mmol/L (3.5-5.1) 12/02/21 19:00 Chloride 98 mmol/L (98-107) 12/02/21 19:00 Carbon Dioxide 24.0 mmol/L (21.0-32.0) 12/02/21 19:00 Anion Gap 6 (5-15) 12/02/21 19:00 BUN 34 mg/dL (7-18) H 12/02/21 19:00 Creatinine 1.75 mg/dL (0.70-1.30) H 12/02/21 19:00 Est GFR (MDRD) Af Amer 50 mL/min (>60) L 12/02/21 19:00 Est GFR (MDRD) Non-Af 42 mL/min (>60) L 12/02/21 19:00 BUN/Creatinine Ratio 19.4 RATIO (10-20) 12/02/21 19:00 Glucose 188 mg/dL (74-106) H 12/02/21 19:00 Weight used for dosin.8 kg Estimated Creatinine Clearance: 54.2 Goal Trough: 15-20 mcg/mL Pharmacy Plan for Drug Dosing: Pharmacy Service will continue to monitor and adjust dosing as required. Medications Vancomycin HCl 2,000 mg/ (Sodium Chloride) 540 mls @ 250 mls/hr IV X1 ONE Stop: 12/02/21 23:39 Last Admin: 12/02/21 21:20 Dose: 250 mls/hr Documented by: Vancomycin HCl 1,250 mg/ (Sodium Chloride) 275 mls @ 167 mls/hr IV Q12H KAREN Follow-Up Labs: Trough Vancomycin Labs to be done on [date and time ordered]: 12/04 @ 0900
[2021-12-02 22:26] LABS: Bedside Glucose 161 mg/dL (70-110)
[2021-12-03] VITALS (10 sets, daily range): BP systolic 125–142; BP diastolic 60–80; PULSE 79–95; RESP 14–20; TEMP 36.3–36.7; O2SAT 97–98
[2021-12-03 04:28] LABS: Absolute Lymphocyte Count 0.69 X10^3/uL (0.83-4.51); Absolute Neutrophil Count 5.1 X10^3/uL (2.0-7.7); Basophil# 0.01 X10^3/uL; Basophil% 0.2 % (0-1); Eosinophil# 0.08 X10^3/uL; Eosinophils% 1.3 % (0-5); Hematocrit 36.5 % (40-54); Hemoglobin 12.2 g/dL (13.0-16.5); Lymphocyte # 0.69 X10^3/ul (0.83-4.51); Mean Corp Hgb Conc 33.4 g/dL (32-36); Mean Corpuscular Hgb 28.8 pg (27.0-32.0); Mean Corpuscular Volume 86.3 fL (80-94); Monocyte# 0.43 X10^3/uL; Monocyte% 6.8 % (0-10); NRBC Flagged by Analyzer 0 % (0-5); Neutrophil # 5.06 X10^3/uL (2.7-7.7); Neutrophil % 80.4 % (47-70); Platelet Count 111 K/mm3 (150-450); RBC Distribution Width CV 15.7 % (11.6-14.6); RBC Distribution Width SD 49.5 fl (35.1-43.9); Red Blood Count 4.23 M/mm3 (4.6-6.2); White Blood Count 6.3 K/mm3 (4.4-11.0)
[2021-12-03 04:55] LABS: ALB/GLOB Ratio 0.6 RATIO (0.9-2.4); AST(SGOT) 59 U/L (15-37); Alanine Aminotransfer ALT/SGPT 48 U/L (16-61); Albumin, Serum 2.6 g/dL (3.2-5.0); Alkaline Phosphatase 50 U/L (45-117); Anion Gap 5 (5-15); BUN 29 mg/dL (7-18); Calcium,Total 8.5 mg/dL (8.5-10.1); Chloride 106 mmol/L (98-107); Creatinine, Serum 1.16 mg/dL (0.70-1.30); EST Glomerular Filtration Rate 67 mL/min (>60); Est Glom Filt Rate - Afr Amer 81 mL/min (>60); Estimated Creatinine Clearance 70.79 ml/min; Globulin 4.4 g/dL (2.2-4.2); Glucose 146 mg/dL (74-106); Potassium 3.6 mmol/L (3.5-5.1); Sodium Level 137 mmol/L (136-145)
[2021-12-03] MEDS: Cefazolin 2 GM in 0.9% Normal Saline 100 ML IV ×3 (05:38→21:35)
[2021-12-03] MEDS: Gabapentin 100 MG Capsule PO ×3 (05:38→21:29)
[2021-12-03] MEDS: Insulin Lispro 100 UNIT/ML INSULN.PEN 10 UNIT SC ×3 (08:41→16:42)
[2021-12-03] MEDS: Insulin Lispro 100 UNIT/ML INSULN.PEN SC ×4 (08:41→21:27)
[2021-12-03] MEDS: Aspirin E.C. 81 MG Tablet PO (08:42)
[2021-12-03] MEDS: Cholecalciferol (VIT D3) 25 MCG TABLET (1,000 UNITS) 50 MCG PO (08:42)
[2021-12-03] MEDS: Enoxaparin 40 MG/0.4 ML Syringe SC (08:42)
[2021-12-03 09:06] LABS: Bedside Glucose 153 mg/dL (70-110)
--- NOTE | 2021-12-03 10:15 | VDLE_ITS ---
Reason For Study: pain RIGHT GSV is normal. CFV is compressible, spontaneous, phasic, competent and demonstrates normal augmentation. FV is compressible, spontaneous, phasic, competent and demonstrates normal augmentation. POP V is compressible, spontaneous, phasic, competent and demonstrates normal augmentation. T/P Trunk is compressible. PTV is compressible. RT PerV is compressible. Procedure This is a venous duplex using B-mode, color flow and spectral Doppler. Exam performed portable in patient room. The exam was abbreviated due to the COVID 19 protocol. The exam was diagnostic. A preliminary report was called and/or faxed to the pt's RN. VL/Venous Duplex US, Unilateral Interpretation Summary There is no evidence of right lower extremity deep vein thrombosis. Right great saphenous vein appears patent and compressible segmentally. Abbreviated COVID-19 protocol util ized Ordering Physician: Purvi Castelan Performed By: Kevin Baxter RVT
--- NOTE | 2021-12-03 11:40 | CASEMGMT ---
TAMMIE CM Readmission note: Prior admission: Admitted 11/08/21 w/cellulitis of LLE. Discharged home 11/13/21 w/[facility]: SN for wound care. Pt w/hx of rt partial foot amputation. ID was consulted and osteomyelitis r/o. Current admission: Admitted 12/02/21 w/cellultiis RLE. Pt continues w/wounds to LLE, but states they are healing. He states nurse from [facility] comes 3 times a week for wound care and also has an aide that comes 3 x's/week. Pt states he has a lady friend staying w/him that also assists w/groceries, meals, and other home tasks. He states he is still legally , but he and his are and he has not seen her since September. He states he has been taking his medication as prescribed and has f/u /[facility] for appts. He says often his appts are phone appts. He reports he has recently started smoking cigarettes again and states he has never been a drinker. He has hx of marijuana use. He states [facility] an denies wanting to talk to [facility] for resources. Discussed discharge planning. Pt states he is not sure if he wants to return home w/[facility] or if he will want to to go SNF. He states he has been weak and it has been difficult getting around w/the wounds to BLE. He has been to [facility]CU in the past, and states he if does go anywhere, that would be his 1st preference. Gee ZUNIGA RN CM
[2021-12-03] MEDS: 0.9% Normal Saline 1,000 ML 75 ML IV (11:58)
[2021-12-03 12:05] LABS: Bedside Glucose 208 mg/dL (70-110)
--- NOTE | 2021-12-03 12:08 | CASEMGMT ---
TAMMIE CHILDS NOTE: Call placed to [facility] and spoke w/Aicha. She was notified pt has been admitted to [facility]. Gee ZUNIGA RN CM
--- NOTE | 2021-12-03 12:27 | PN.HOSP_ITS ---
Subjective Subjective Patient seen and examined. He still complains of redness and some pain in his right lower extremity. He admits to calf tenderness. He denies any fever or chills, nausea or vomiting. Review of systems otherwise negative. Objective Data Objective Data Vital Signs: Vital Signs Temp Pulse Resp BP Pulse Ox 97.6 F L 84 18 132/80 H 97 12/03/21 08:40 12/03/21 12:00 12/03/21 08:40 12/03/21 08:40 12/03/21 08:40 Oxygen Delivery Method Room Air Weight: 244 lb 4.355 oz Body Mass Index (BMI) 32.2 Intake & Output: Intake and Output for Last 24 Hours 12/01/21 12/02/21 12/03/21 23:59 23:59 23:59 Intake Total 2652 / 2652 1555.0 / 1555.0 Output Total 1600 / 1600 Balance 2652 / 2152 -45.0 / -45.0 Lab / Micro Data Result Diagrams: 12/03/21 03:49 12/03/21 03:49 Labs: Laboratory Results - last 24 hr 12/02/21 19:00: WBC 10.4, RBC 4.40 L, Hgb 12.5 L, Hct 37.9 L, MCV 86.1, MCH 28.4, MCHC 33.0, RDW Std Deviation 49.5 H, RDW Coeff of Hakeem 15.8 H, Plt Count 145 L, MPV 9.7, Immature Gran % (Auto) 0.600, Neut % (Auto) 85.7 H, Lymph % (Auto) 6.9 L, [place] % (Auto) 6.4, Eos % (Auto) 0.2, Baso % (Auto) 0.2, Absolute Neuts (auto) 8.9 H, Absolute Lymphs (auto) 0.72 L, Nucleated RBC % 0 12/02/21 19:00: PT 14.9, INR 1.2, APTT 39.7 H 12/02/21 19:00: Sodium 128 L, Potassium 4.2, Chloride 98, Carbon Dioxide 24.0, Anion Gap 6, BUN 34 H, Creatinine 1.75 H, Estim Creat Clear Calc 46.93, Est GFR (MDRD) Af Amer 50 L, Est GFR (MDRD) Non-Af 42 L, BUN/Creatinine Ratio 19.4, Glucose 188 H, Calcium 9.6, Total Bilirubin 2.20 H, AST 41 H, ALT 34, Alkaline Phosphatase 55, Total Protein 7.6, Albumin 3.0 L, Globulin 4.6 H, Albumin/Globulin Ratio 0.7 L 12/02/21 19:00: Lactic Acid 1.3 12/02/21 21:38: POC Glucose 161 H 12/03/21 03:49: WBC 6.3, RBC 4.23 L, Hgb 12.2 L, Hct 36.5 L, MCV 86.3, MCH 28.8, MCHC 33.4, RDW Std Deviation 49.5 H, RDW Coeff of Hakeem 15.7 H, Plt Count 111 L, MPV 10.0, Immature Gran % (Auto) 0.300, Neut % (Auto) 80.4 H, Lymph % (Auto) 11.0 L, [place] % (Auto) 6.8, Eos % (Auto) 1.3, Baso % (Auto) 0.2, Absolute Neuts (auto) 5.1, Absolute Lymphs (auto) 0.69 L, Nucleated RBC % 0 12/03/21 03:49: Sodium 137, Potassium 3.6, Chloride 106, Carbon Dioxide 26.0, Anion Gap 5, BUN 29 H, Creatinine 1.16, Estim Creat Clear Calc 70.79, Est GFR (MDRD) Af Amer 81, Est GFR (MDRD) Non-Af 67, BUN/Creatinine Ratio 25.0 H, Glucose 146 H, Calcium 8.5, Total Bilirubin 1.20 H, AST 59 H, ALT 48, Alkaline Phosphatase 50, Total Protein 7.0, Albumin 2.6 L, Globulin 4.4 H, Albumin/Globulin Ratio 0.6 L 12/03/21 08:39: POC Glucose 153 H 12/03/21 11:54: POC Glucose 208 H Physical Exam Const alert, oriented x3 and no apparent distress Exam Limitations: no limitations HEENT head/scalp atraumatic and moist oral mucous membranes Head and Scalp: normocephalic Eyes PERRL, EOMs intact bilaterally and conjunctivae normal Neck no lymphadenopathy Resp normal respiratory effort, no retractions, no use of accessory muscles and clear to auscultation bilaterally Cardio regular rate, regular rhythm, S1 normal heart sound, S2 normal heart sound and no murmurs GI normal to inspection, nondistended, normoactive bowel sounds, soft to palpation, non-tender, non-distended and hepatosplenomegaly Extremity Extremity Narrative: RLE has transmetatarsal amputation. RLE erythematous and mildly swollen and tender to touch up to knee level; has significant calf tenderness. LLE wrapped in bandage. Peripheral Pulses: Yes pulses 2+ throughout Skin Skin Narrative: as under extremity Neuro oriented x3, CN's II-XII intact bilaterally and moves all extremities Sensorium / Orientation: awake and alert Psych affect normal Assessment & Plan Assessment/Plan (1) Cellulitis of left lower extremity: (2) Sepsis: QUALIFIERS: Sepsis type: sepsis due to unspecified organism Sepsis acute organ dysfunction status: with acute organ dysfunction Severe sepsis acute organ dysfunction type: acute renal failure Acute renal failure type: unspecified Severe sepsis shock status: without septic shock Qualified Code(s): A41.9 - Sepsis, unspecified organism; R65.20 - Severe sepsis without septic shock; N17.9 - Acute kidney failure, unspecified (3) Acute hypotension: PLAN: #Sepsis due to cellulitis of the RLE * on IV cefazolin and vancomycin * blood cultures pending * hypotension has resolved * #Type 2 diabetes mellitus with polyneuropathy: * Was hyperglycemic on admission. Metformin on hold * On Lantus 58 units with breakfast. Insulin sliding scale. * AccuChecks ACH S. * Also on gabapentin #MATHEUS: * Creatinine on presentation was 1.75 and is trended downwards to 1.16. * DC IVF. #Hyponatremia: Sodium was 128 on admission and is now improved. #Hypertension: * Blood pressure was on the lower side so his home Coreg was held. * Will monitor blood pressure and resume when it normalizes #Elevated bilirubin: * Bilirubin was 2.2 on admission. * This was likely due to sepsis as it has trended down to 1.2. Will monitor. * Other liver enzymes within normal limits. #Thrombocytopenia: * Platelets are 111. * Was 145 on admission with baseline being in the normal range. Does have a history of thrombocytopenia * May be due to sepsis as well. * Will monitor for now. * #Nicotine dependence: Counseled to quit. Patient refused nicotine patch #Left lower extremity chronic wounds: Wound care consulted. Left leg currently dressed. DVT prophylaxis: lovenox Charges/Coding Visit Charges Inpatient E&M: 76017 Subs Hosp L2
[2021-12-03] MEDS: Glucerna Shake 120 ML LIQUID PO ×2 (16:47→22:00)
[2021-12-03 16:51] LABS: Bedside Glucose 198 mg/dL (70-110)
[2021-12-03] MEDS: Acetaminophen 325 MG Tablet 650 MG PO (17:45)
[2021-12-03] MEDS: oxyCODONE 5 MG Tablet PO (18:56)
[2021-12-03] MEDS: MELATONIN 3 MG TABLET PO (21:30)
[2021-12-03 21:41] LABS: Bedside Glucose 154 mg/dL (70-110)
[2021-12-04] VITALS (10 sets, daily range): BP systolic 140–160; BP diastolic 75–87; PULSE 82–90; RESP 16–20; TEMP 36.7–37.4; O2SAT 94–99
[2021-12-04] MEDS: 0.9% Normal Saline 1,000 ML 75 ML IV ×2 (02:39→19:44)
[2021-12-04] MEDS: Gabapentin 100 MG Capsule PO ×3 (06:07→20:37)
[2021-12-04] MEDS: Cefazolin 2 GM in 0.9% Normal Saline 100 ML IV ×3 (06:07→21:00)
[2021-12-04] MEDS: oxyCODONE 5 MG Tablet PO ×2 (06:12→22:15)
[2021-12-04 06:19] LABS: Absolute Lymphocyte Count 0.56 X10^3/uL (0.83-4.51); Absolute Neutrophil Count 3.6 X10^3/uL (2.0-7.7); Basophil# 0.02 X10^3/uL; Basophil% 0.4 % (0-1); Eosinophil# 0.21 X10^3/uL; Eosinophils% 4.4 % (0-5); Hematocrit 34.6 % (40-54); Hemoglobin 11.6 g/dL (13.0-16.5); Lymphocyte # 0.56 X10^3/ul (0.83-4.51); Lymphocyte % 11.6 % (19-41); Mean Corp Hgb Conc 33.5 g/dL (32-36); Mean Corpuscular Hgb 28.9 pg (27.0-32.0); Mean Corpuscular Volume 86.1 fL (80-94); Mean Platelet Vol. 10.1 fl (6.2-12.0); Monocyte# 0.44 X10^3/uL; Monocyte% 9.1 % (0-10); NRBC Flagged by Analyzer 0 % (0-5); Neutrophil # 3.57 X10^3/uL (2.7-7.7); Neutrophil % 74.1 % (47-70); POSITIVE DIFFERENTIAL YES; Platelet Count 113 K/mm3 (150-450); RBC Distribution Width CV 15.1 % (11.6-14.6); RBC Distribution Width SD 48.1 fl (35.1-43.9); Red Blood Count 4.02 M/mm3 (4.6-6.2); White Blood Count 4.8 K/mm3 (4.4-11.0)
[2021-12-04 06:25] LABS: Differential Indicated SCAN CRITERIA MET
[2021-12-04 06:31] LABS: Anion Gap 5 (5-15); BUN 17 mg/dL (7-18); BUN/Creat Ratio 22.5 RATIO (10-20); Calcium,Total 8.9 mg/dL (8.5-10.1); Chloride 105 mmol/L (98-107); Creatinine, Serum 0.75 mg/dL (0.70-1.30); EST Glomerular Filtration Rate 110 mL/min (>60); Est Glom Filt Rate - Afr Amer 133 mL/min (>60); Estimated Creatinine Clearance 82.12 ml/min; Glucose 138 mg/dL (74-106); Potassium 3.5 mmol/L (3.5-5.1); Sodium Level 136 mmol/L (136-145)
[2021-12-04 06:55] LABS: Bedside Glucose 190 mg/dL (70-110)
[2021-12-04 07:03] LABS: Differential Comment SCANNED
[2021-12-04] MEDS: Insulin Lispro 100 UNIT/ML INSULN.PEN SC ×3 (08:14→16:23)
[2021-12-04] MEDS: Insulin Lispro 100 UNIT/ML INSULN.PEN 10 UNIT SC ×3 (08:15→16:23)
[2021-12-04] MEDS: Aspirin E.C. 81 MG Tablet PO (08:19)
[2021-12-04] MEDS: Cholecalciferol (VIT D3) 25 MCG TABLET (1,000 UNITS) 50 MCG PO (08:21)
[2021-12-04] MEDS: Enoxaparin 40 MG/0.4 ML Syringe SC (08:21)
[2021-12-04 09:49] LABS: Vancomycin, Trough Level 14.3 ug/mL (5.0-15.0)
[2021-12-04] MEDS: Glucerna Shake 120 ML LIQUID PO ×4 (10:23→20:47)
--- NOTE | 2021-12-04 10:56 | PCM.RX.CS ---
Consult Pharmacy has been consulted to manage selected antiobiotic: Vancomycin Type of Consult: Follow-up Suspected Infection: Sepsis, Skin/Soft tissue Prior Doses of Antibiotics Received/Current Regimen: currently on vanc 1750mg IV q12h Labs: Sodium 136 mmol/L (136-145) 12/04/21 04:58 Potassium 3.5 mmol/L (3.5-5.1) 12/04/21 04:58 Chloride 105 mmol/L (98-107) 12/04/21 04:58 Carbon Dioxide 26.0 mmol/L (21.0-32.0) 12/04/21 04:58 Anion Gap 5 (5-15) 12/04/21 04:58 BUN 17 mg/dL (7-18) 12/04/21 04:58 Creatinine 0.75 mg/dL (0.70-1.30) 12/04/21 04:58 Est GFR (MDRD) Af Amer 133 mL/min (>60) 12/04/21 04:58 Est GFR (MDRD) Non-Af 110 mL/min (>60) 12/04/21 04:58 BUN/Creatinine Ratio 22.5 RATIO (10-20) H 12/04/21 04:58 Glucose 138 mg/dL (74-106) H 12/04/21 04:58 Vancomycin Trough 14.3 ug/mL (5.0-15.0) 12/04/21 09:10 Microbiology: Microbiology 12/02/21 19:18 Blood Culture (Wb) - Left Wrist Blood Culture - Preliminary No growth in 48 hours. 12/02/21 19:00 Blood Culture (Wb) - Left Forearm Blood Culture - Preliminary No growth in 48 hours. Weight used for dosin.8 kg Estimated Creatinine Clearance: 119 ml/min Goal Trough: 15-20 mcg/mL Pharmacy Plan for Drug Dosing: The vanc trough drawn at 09:10 today (approx 11.5 hours after the previous dose) came back as 14.3. This is very close to goal range so will leave the dosing the same for now with the expectation that the trough will be in goal range at the next trough in a couple days, also noting that the patient has only received 3 doses of vanc so far. Repeat trough in 2 days per protocol. The patient's CrCl of 119ml/min was calculated using an adjusted body weight of 92.3kg. Pharmacy Service will continue to monitor and adjust dosing as required. Follow-Up Labs: Trough Vancomycin Labs to be done on [date and time ordered]: 12/06/21 0900
--- NOTE | 2021-12-04 11:39 | PN.HOSP_ITS ---
Subjective Subjective Patient seen and examined. He is feeling better today. He states the pain in his right lower extremity and the swelling is improving slowly. He has a mild fever of 99.3 Fahrenheit today. Review of systems otherwise negative. He has remained hemodynamically stable otherwise. Objective Data Objective Data Vital Signs: Vital Signs Temp Pulse Resp BP Pulse Ox 99.3 F H 88 18 153/87 H 94 12/04/21 08:12 12/04/21 08:12 12/04/21 08:12 12/04/21 08:12 12/04/21 08:12 Oxygen Delivery Method Room Air Weight: 244 lb 4.355 oz Body Mass Index (BMI) 32.2 Intake & Output: Intake and Output for Last 24 Hours 12/02/21 12/03/21 12/04/21 23:59 23:59 23:59 Intake Total 2652 / 2652 2932.5 / 3172.5 1810 / 1810 Output Total 3700 / 4200 1300 / 1300 Balance 2652 / 2152 -767.5 / -1027.5 510 / 510 Lab / Micro Data Result Diagrams: 12/04/21 04:58 12/04/21 04:58 Labs: Laboratory Results - last 24 hr 12/03/21 11:54: POC Glucose 208 H 12/03/21 16:38: POC Glucose 198 H 12/03/21 21:24: POC Glucose 154 H 12/04/21 04:58: WBC 4.8, RBC 4.02 L, Hgb 11.6 L, Hct 34.6 L, MCV 86.1, MCH 28.9, MCHC 33.5, RDW Std Deviation 48.1 H, RDW Coeff of Hakeem 15.1 H, Plt Count 113 L, MPV 10.1, Immature Gran % (Auto) 0.400, Neut % (Auto) 74.1 H, Lymph % (Auto) 11.6 L, [place] % (Auto) 9.1, Eos % (Auto) 4.4, Baso % (Auto) 0.4, Absolute Neuts (auto) 3.6, Absolute Lymphs (auto) 0.56 L, Nucleated RBC % 0, Differential Co mment SCANNED 12/04/21 04:58: Sodium 136, Potassium 3.5, Chloride 105, Carbon Dioxide 26.0, Anion Gap 5, BUN 17, Creatinine 0.75, Estim Creat Clear Calc 82.12, Est GFR (MDRD) Af Amer 133, Est GFR (MDRD) Non-Af 110, BUN/Creatinine Ratio 22.5 H, Glucose 138 H, Calcium 8.9 12/04/21 06:50: POC Glucose 190 H 12/04/21 09:10: Vancomycin Trough 14.3 Micro: Microbiology 12/02/21 19:18 Blood Culture (Wb) - Left Wrist Blood Culture - Preliminary No growth in 48 hours. 12/02/21 19:00 Blood Culture (Wb) - Left Forearm Blood Culture - Preliminary No growth in 48 hours. Physical Exam Const alert, oriented x3 and no apparent distress Exam Limitations: no limitations HEENT head/scalp atraumatic and moist oral mucous membranes Head and Scalp: normocephalic Eyes PERRL, EOMs intact bilaterally and conjunctivae normal Neck no lymphadenopathy Resp normal respiratory effort, no retractions, no use of accessory muscles and clear to auscultation bilaterally Cardio regular rate, regular rhythm, S1 normal heart sound, S2 normal heart sound and no murmurs GI normal to inspection, nondistended, normoactive bowel sounds, soft to palpation, non-tender, non-distended and hepatosplenomegaly Extremity Extremity Narrative: RLE has transmetatarsal amputation. RLE erythema, swelling and tenderness is improving slowly. LLE wrapped in bandage. Peripheral Pulses: Yes pulses 2+ throughout Skin Skin Narrative: as under extremity Neuro oriented x3, CN's II-XII intact bilaterally and moves all extremities Sensorium / Orientation: awake and alert Psych affect normal Assessment & Plan Assessment/Plan (1) Cellulitis of left lower extremity: (2) Sepsis: QUALIFIERS: Sepsis type: sepsis due to unspecified organism Sepsis acute organ dysfunction status: with acute organ dysfunction Severe sepsis acute organ dysfunction type: acute renal failure Acute renal failure type: unspecified Severe sepsis shock status: without septic shock Qualified Code(s): A41.9 - Sepsis, unspecified organism; R65.20 - Severe sepsis without septic shock; N17.9 - Acute kidney failure, unspecified (3) Acute hypotension: PLAN: #Cellulitis of the RLE * on IV cefazolin and vancomycin * blood cultures pending * hypotension has resolved * paitent didnt have any evidence of end organ damage, so sepsis ruled out. * #Type 2 diabetes mellitus with polyneuropathy: * Was hyperglycemic on admission. Metformin on hold * On Lantus 58 units with breakfast. Insulin sliding scale. * AccuChecks ACH S. * Also on gabapentin #MATHEUS: * resolved. Cr is 0.75 today #Hyponatremia: resolved. Na is 136 today. #Hypertension: * Blood pressure was on the lower side so his home Coreg was held. * BP is up to 153/87 today. * will resume coreg #Elevated bilirubin: * resolved. Was likely due to hypotension #Thrombocytopenia: * Platelets are 113 roday * Was 145 on admission with baseline being in the normal range. Does have a history of thrombocytopenia * May be due to sepsis as well. * Will monitor for now. * #Nicotine dependence: Counseled to quit. Patient refused nicotine patch #Left lower extremity chronic wounds: Wound care consulted. Left leg currently dressed. DVT prophylaxis: lovenox Charges/Coding Visit Charges Inpatient E&M: 41123 Subs Hosp L2
[2021-12-04 11:41] LABS: Bedside Glucose 222 mg/dL (70-110)
[2021-12-04 16:31] LABS: Bedside Glucose 178 mg/dL (70-110)
[2021-12-04 21:11] LABS: Bedside Glucose 148 mg/dL (70-110)
[2021-12-05 03:03] VITALS: PULSE 95
[2021-12-05 03:12] VITALS: BP 149/88; PULSE 89; RESP 18; TEMP 36.7; O2SAT 97
[2021-12-05] MEDS: Cefazolin 2 GM in 0.9% Normal Saline 100 ML IV (05:25)
[2021-12-05] MEDS: Gabapentin 100 MG Capsule PO (05:25)
[2021-12-05 06:36] LABS: Absolute Lymphocyte Count 0.61 X10^3/uL (0.83-4.51); Absolute Neutrophil Count 4.5 X10^3/uL (2.0-7.7); Basophil# 0.03 X10^3/uL; Basophil% 0.5 % (0-1); Eosinophil# 0.23 X10^3/uL; Eosinophils% 3.9 % (0-5); Hematocrit 35.9 % (40-54); Hemoglobin 11.7 g/dL (13.0-16.5); Lymphocyte # 0.61 X10^3/ul (0.83-4.51); Lymphocyte % 10.3 % (19-41); Mean Corp Hgb Conc 32.6 g/dL (32-36); Mean Corpuscular Hgb 28.1 pg (27.0-32.0); Mean Corpuscular Volume 86.1 fL (80-94); Mean Platelet Vol. 10.1 fl (6.2-12.0); Monocyte# 0.51 X10^3/uL; Monocyte% 8.6 % (0-10); NRBC Flagged by Analyzer 0 % (0-5); Neutrophil # 4.53 X10^3/uL (2.7-7.7); Platelet Count 128 K/mm3 (150-450); RBC Distribution Width CV 14.8 % (11.6-14.6); RBC Distribution Width SD 46.9 fl (35.1-43.9); Red Blood Count 4.17 M/mm3 (4.6-6.2)
[2021-12-05 07:05] LABS: Anion Gap 7 (5-15); BUN 17 mg/dL (7-18); Calcium,Total 9.6 mg/dL (8.5-10.1); Chloride 103 mmol/L (98-107); Creatinine, Serum 0.74 mg/dL (0.70-1.30); EST Glomerular Filtration Rate 112 mL/min (>60); Est Glom Filt Rate - Afr Amer 136 mL/min (>60); Estimated Creatinine Clearance 82.12 ml/min; Glucose 155 mg/dL (74-106); Potassium 3.6 mmol/L (3.5-5.1); Sodium Level 135 mmol/L (136-145)
[2021-12-05 07:29] VITALS: O2SAT 95
[2021-12-05 07:39] VITALS: PULSE 100
[2021-12-05] MEDS: Insulin Lispro 100 UNIT/ML INSULN.PEN 10 UNIT SC ×2 (08:22→10:49)
[2021-12-05] MEDS: Insulin Lispro 100 UNIT/ML INSULN.PEN SC ×2 (08:22→10:50)
[2021-12-05] MEDS: Aspirin E.C. 81 MG Tablet PO (08:23)
[2021-12-05] MEDS: Glucerna Shake 120 ML LIQUID PO (08:24)
[2021-12-05] MEDS: Enoxaparin 40 MG/0.4 ML Syringe SC (08:24)
[2021-12-05] MEDS: Cholecalciferol (VIT D3) 25 MCG TABLET (1,000 UNITS) 50 MCG PO (08:24)
[2021-12-05] MEDS: oxyCODONE 5 MG Tablet PO (08:28)
[2021-12-05] MEDS: Senna/Docusate Sodium 1 Tablet 2 TABLET PO (08:28)
[2021-12-05 08:39] VITALS: BP 140/83; PULSE 94; RESP 16; TEMP 37.1; O2SAT 96
[2021-12-05 09:16] LABS: Bedside Glucose 192 mg/dL (70-110)
[2021-12-05 10:55] LABS: Bedside Glucose 222 mg/dL (70-110)
--- NOTE | 2021-12-05 11:00 | DS.PCM_ITS ---
Providers Date of Admission: 12/02/21 Date of Discharge: 12/05/21 Primary Care Physician: [facility] Consultations 12/02/21 21:12 Consult: Onc/Wound/hospice admitting clerk Routine Comment: Reason for Consult:: LEFT LEG WOUNDS Reason For Visit: SEPSIS SECONDARY TO CELLULITIS Diagnosis Discharge Diagnosis (1) Acute hypotension: Status: Acute Code(s): I95.9 - Hypotension, unspecified (2) Cellulitis of right lower extremity: Status: Acute Code(s): L03.115 - Cellulitis of right lower limb (3) Acute kidney injury: Status: Acute Code(s): N17.9 - Acute kidney failure, unspecified Medications at Discharge Home Medications carvedilol 3.125 mg PO BID 08/18/19 cholecalciferol (vitamin D3) 2,000 unit PO DAILY 08/18/19 gabapentin 300 mg PO TID 08/18/19 metformin 1,000 mg PO BID 08/18/19 Emollient Combination No.72 [Eucerin Intensive Repair] 1 applic TOPICAL BID 07/08/20 aspirin 81 mg PO DAILY@0800 07/08/20 insulin glargine 58 units SUBCUT BREAKFAST 07/08/20 naproxen 500 mg PO BID PRN 07/08/20 insulin lispro 15 unit SUBCUT TID 11/08/21 Ozempic mg SUBCUT MO 12/02/21 doxycycline hyclate 100 mg PO BID #22 cap 12/05/21 levofloxacin 750 mg PO DAILY #11 tab 12/05/21 oxycodone 5 mg PO Q6H PRN PRN 3 Days #20 tab 12/05/21 Hospital Course Operations None Procedures None and - (Bilateral lower extremity duplex-negative) Summary of Care Provided Minutes Spent on Discharge: 38 Hospital Course: Mr. Kent is a 66-year-old white male who presented to the emergency department was [facility] on 12/05/2021 with worsening erythema of his right leg that was noticed on the same day of presentation. The patient had a recent hospitalization from 11/08 through 11/13/2021 for cellulitis of the left lower extremity for which he recently completed a course of Bactrim. He states he had been off Bactrim for a few weeks when he developed right lower extremity swelling and erythema. The patient noted on the day of admission that he woke with some blood on his sheets and that later in the day he noticed some redness in his right leg. He had worsening pain in that leg but has chronic neuropathy in his foot. He was admitted with right lower extremity cellulitis and found to have a small open wound on the right lateral leg and 3-4 small fissures on the plantar surface just proximal to the met heads on the right foot. The patient does indicate he follows with podiatry but has missed his last 2 appointments. He was placed on cefazolin and vancomycin. His blood pressure was noted to be low however he met no criteria for sepsis. His pressure did resolve with IV fluids and holding his home antihypertensives. On the day of discharge his blood pressure was 140/83 and we reinitiated his home antihypertensives. He is diabetic at baseline and is uncontrolled with the most recent hemoglobin A1c earlier this year of 7.5. After 3 days of IV antibiotics he had significant retraction of his erythema, reduction in his swelling, and reduced pain and we were able to discharge him home in stable condition on oral antibiotics. He was placed on Levaquin for broad-spectrum coverage to include Pseudomonas with his fissures on his feet as well as doxycycline to cover MRSA. On admission he was noted to have mild MATHEUS with a serum creatinine of 1.75. His MATHEUS completely resolved upon discharge and he had a creatinine of 0.74 on the day of discharge. Cultures were obtained on admission and were negative at 48 hours. He was able to be discharged home in stable condition on 12/05/2021. He was instructed to follow-up this week with his director cloud transformation and encouraged to make an appointment for later this week today. He was also discharged home on Levaquin for another 11 days as well as doxycycline for another 11 days. He is to follow-up with his primary care physician at the [facility] within the next 2 to 3 weeks. Discharge diagnoses: Right lower extremity cellulitis-improving Acute hypotension-resolved MATHEUS-resolved DM-2 uncontrolled--> most recent A1c was 7.5 Diabetic neuropathy Hypertension Thrombocytopenia-at baseline Recent left lower extremity cellulitis with chronic wounds Chronic hepatitis C History of right transmetatarsal amputation History of stroke/TIA Hyperlipidemia RG Vitamin D deficiency History of substance abuse Tobacco abuse Anxiety/depression Physical Exam Const alert, oriented x3, no apparent distress, no limitations and well nourished Constitutional Narrative: Overweight upper middle-aged white male lying in bed, appears comfortable and nontoxic General Appearance: cooperative, comfortable, well kempt and well developed Orientation / Consciousness: awake Exam Limitations: no limitations Nutritional Appearance: overweight HEENT normocephalic, head/scalp atraumatic, hearing grossly normal bilaterally and moist oral mucous membranes HEENT Narrative: No thrush, Mallampati is 3, dentition is good Eyes PERRL, EOMs intact bilaterally and conjunctivae normal Eyes Narrative: No scleral icterus Neck no lymphadenopathy, supple and no JVD Neck Narrative: Trachea is midline, no thyroid enlargement Resp normal respiratory effort, no retractions, no use of accessory muscles and clear to auscultation bilaterally Auscultation: Negative for crackles, rales, rhonchi or wheezes Cardio regular rate, regular rhythm, S1 normal heart sound, S2 normal heart sound, no murmurs, no rub, no gallops, no clicks and no JVD GI normal to inspection, nondistended, normoactive bowel sounds, soft to palpation, non-tender and non-distended Extremity Extremity Narrative: 1+ right lower extremity edema, no cyanosis or clubbing, transmetatarsal head amputation right foot left lower extremity is wrapped in Julián bandage Skin skin turgor normal and no jaundice Skin Narrative: Patient with 3 fissures on the plantar surface of his right foot just behind the met heads and also a small opening on the distal lateral lower extremity all of which are likely nidus is for infection, erythema has retracted significantly from marking upon admission, leg is mildly tender, neuropathy bilateral distal lower extremities, left lower extremity with dry skin at the toes Neuro oriented x3, CN's II-XII intact bilaterally, moves all extremities and no focal motor deficits Neuro Narrative: Decrease in patient bilateral distal lower extremities Sensorium / Orientation: awake and alert Speech: speech normal Psych affect normal Weight / BMI Weight Weight: 110.8 kg Body Mass Index (BMI) 32.2 ABG / Lab / Microbiology Data Result Diagrams: 12/05/21 05:30 12/05/21 05:30 Laboratory: Laboratory Results - last 24 hr 12/04/21 11:29: POC Glucose 222 H 12/04/21 16:21: POC Glucose 178 H 12/04/21 20:33: POC Glucose 148 H 12/05/21 05:30: WBC 6.0, RBC 4.17 L, Hgb 11.7 L, Hct 35.9 L, MCV 86.1, MCH 28.1, MCHC 32.6, RDW Std Deviation 46.9 H, RDW Coeff of Hakeem 14.8 H, Plt Count 128 L, MPV 10.1, Immature Gran % (Auto) 0.700, Neut % (Auto) 76.0 H, Lymph % (Auto) 10.3 L, [place] % (Auto) 8.6, Eos % (Auto) 3.9, Baso % (Auto) 0.5, Absolute Neuts (auto) 4.5, Absolute Lymphs (auto) 0.61 L, Nucleated RBC % 0 12/05/21 05:30: Sodium 135 L, Potassium 3.6, Chloride 103, Carbon Dioxide 25.0, Anion Gap 7, BUN 17, Creatinine 0.74, Estim Creat Clear Calc 82.12, Est GFR (MDRD) Af Amer 136, Est GFR (MDRD) Non-Af 112, BUN/Creatinine Ratio 23.0 H, Glucose 155 H, Calcium 9.6 12/05/21 08:19: POC Glucose 192 H 12/05/21 10:47: POC Glucose 222 H Microbiology: Microbiology 12/02/21 19:18 Blood Culture (Wb) - Left Wrist Blood Culture - Preliminary No growth in 48 hours. 12/02/21 19:00 Blood Culture (Wb) - Left Forearm Blood Culture - Preliminary No growth in 48 hours. Radiography Diagnostic Testing: Radiology Impression Venous Doppler Study 12/03/21 10:15 Interpretation Summary There is no evidence of right lower extremity deep vein thrombosis. Right great saphenous vein appears patent and compressible segmentally. Abbreviated COVID-19 protocol utilized Ordering Physician: Purvi Castelan Performed By: Kevin Baxter, RVT D/C Instructions Discharge Diet: Low fat / Low cholesterol and 1800 Calorie Control Diet Discharge Activity: Return to Normal Activity Meaningful Use Info Meaningful Use Diagnoses (Choose all that apply): None applicable Discharge Plan Admission Admit Date/Time: 12/02/21 20:13 Primary Reason for Your Visit: Right lower extremity cellulitis Attending Provider: Daniela Grigsby Primary Care Provider: [facility] Instructions Additional Instructions / Restrictions: 1. Please follow-up with your director cloud transformation this week with regards to the wounds on your right lower extremity as these are nidus for infection 2. Please complete antibiotics as instructed Discharge Orders/Prescriptions Prescriptions: New oxycodone 5 mg Tablet 5 mg PO Q6H PRN PRN (Reason: Pain Score 6-10) 3 Days Qty: 20 RF: 0 doxycycline hyclate 100 mg capsule 100 mg PO BID Qty: 22 RF: 0 levofloxacin 750 mg tablet 750 mg PO DAILY Qty: 11 RF: 0 Continued carvedilol 3.125 MG tablet 3.125 mg PO BID RF: 0 metformin 1,000 MG tablet 1,000 mg PO BID RF: 0 Hold Instructions: Resume on 11/17/21. gabapentin 300 MG capsule 300 mg PO TID RF: 0 cholecalciferol (vitamin D3) 2,000 UNIT capsule 2,000 unit PO DAILY RF: 0 aspirin 81 MG tablet 81 mg PO DAILY@0800 RF: 0 naproxen 500 MG tablet 500 mg PO BID PRN (Reason: Pain) RF: 0 insulin glargine 100 UNITS/ML insulin pen 58 units subcut BREAKFAST RF: 0 Emollient Combination No.72 [Eucerin Intensive Repair] 1 APPLIC lotion 1 applic topical BID RF: 0 insulin lispro 100 unit/mL Insulin Pen 15 unit SUBCUT TID RF: 0 Ozempic 0.25 mg or 0.5 mg(2 mg/1.5 mL) Pen Injector SUBCUT MO RF: 0 [facility]errals [facility] [Primary [facility] Provider[facility] - Disposition Disposition (needs filled in before D/C Order can be placed): Home, Self Care Charges/Coding Visit Charges Inpatient E&M: 94749 Disch Hosp
--- NOTE | 2021-12-05 11:57 | WOUNDNOTE ---
skin photo: right lower leg
--- NOTE | 2021-12-05 11:59 | WOUNDNOTE ---
wound photo: right foot
--- NOTE | 2021-12-05 12:00 | WOUNDNOTE ---
skin photo: left foot
--- NOTE | 2021-12-05 12:00 | WOUNDNOTE ---
skin photo: left foot
--- NOTE | 2021-12-05 12:08 | CASEMGMT ---
Addendum entered by Aicha King 12/05/21 12:19: Clinicals and MICHELLE order faxed to [facility] and call to [facility] to notify of addition of PT/OT and pt discharge today, voice understanding. Ladonna CHO CM Original Note: This TAMMIE CM to room and pt states plan is to go home with [facility], aide and pt would like to add PT/OT. Pt states no concerns with going home and states plans to f/u with podiatry. Pt voices no further questions/concerns/needs. Ladonna CHO CM
[2021-12-05 13:27] VITALS: BP 147/86; PULSE 97; RESP 16; TEMP 37.7; O2SAT 93
[2021-12-05 13:45] LABS: M R Staph aureus DNA By PCR Negative (Negative); Probe Check PASS; Specimen Processing Control PASS
== END 2021-12-05 13:25 | disposition home or self-care (01) | DRG 603 ==
LOC: ED 19:09 → PCU 20:29
PROVIDERS: Student in an Organized Health Care Education/Training Program; Admitting Provider Hospitalist; Emergency Provider Emergency Medicine; Visit Provider Internal Medicine
DX: L03.115 Cellulitis of right lower limb (principal); N17.9 Acute kidney failure, unspecified; E87.1 Hypo-osmolality and hyponatremia; D69.6 Thrombocytopenia, unspecified; E11.42 Type 2 diabetes mellitus with diabetic polyneuropathy; E11.65 Type 2 diabetes mellitus with hyperglycemia; Z79.4 Long term (current) use of insulin; B18.2 Chronic viral hepatitis C; E78.5 Hyperlipidemia, unspecified; I10 Essential (primary) hypertension; G47.33 Obstructive sleep apnea (adult) (pediatric); F41.9 Anxiety disorder, unspecified; E55.9 Vitamin D deficiency, unspecified; Z79.82 Long term (current) use of aspirin; Z87.891 Personal history of nicotine dependence; G89.29 Other chronic pain; F32.A Depression, unspecified
CPT/HCPCS: 36415; 80048; 80053; 80202; 82962; 83605; 85025; 85610; 85730; 87040; 87641; 93971; 97802; 99285; J7030; J7040; A4216; J0295

== ENCOUNTER → 2022-09-11 | Outpatient (CLI) | payer OTHER, SELFPAY ==
--- NOTE | 2022-09-11 12:56 | CT_ITS ---
EXAM: CT RIGHT LOWER EXTREMITY WITHOUT INTRAVENOUS CONTRAST, HIP CLINICAL INDICATION: PRE-OP TECHNIQUE: Helically acquired images were obtained of the right hip without intravenous contrast. CTDIvol = ( 15 ) mGy, DLP = ( 796 ) mGycm This CT exam was performed using one or more of the following dose reduction techniques: automated exposure control, adjustment of the mA and/or kV according to patient size, and/or use of iterative reconstruction technique. This report was created using [employer] report Logly technology. COMPARISON: None. FINDINGS: Severe osteoarthritic changes of the right hip joint. Remote ORIF of a right proximal femur fracture with no hardware complications. Degenerative changes of the pelvis and spine. No acute or healing fracture or malalignment. No new lytic or sclerotic lesions of bone. Moderate size left suprapatellar joint effusion with small left Motta''s cyst. Intra-articular body within the Motta''s cyst measuring 1.6 cm. No evidence of Motta''s cyst leakage or rupture. Small bone islands involving the ilium bilaterally. Incomplete imaging of exophytic renal cystic lesion at the left lower pole. CT/Extremity Lower without Contra IMPRESSION: 1. Preoperative planning study performed with findings of severe right hip osteoarthrosis. 2. Incidental finding of moderate left suprapatellar joint effusion with small left Motta''s cyst containing a 1.6 cm intra-articular ossific body. Electronically Signed: Homero Ruggiero MD at 21:48 EST ,
== END | disposition home or self-care (01) ==
LOC: CT 12:53
PROVIDERS: Referring Provider Specialist; Visit Provider Specialist
DX: M16.51 Unilateral post-traumatic osteoarthritis, right hip (principal)
CPT/HCPCS: 73700

== ENCOUNTER 2022-09-27 07:34 | Inpatient (IN) | payer OTHER, SELFPAY ==
--- NOTE | 2022-09-11 22:47 | PCM.HP.BLA ---
History and Physical History and Physical [facility] Patient Name: Narciso Kent : 1955 From:? PAULY TOMLINSON PA-C? DATE OF SURGERY:? 09/27/2022 SCHEDULED PROCEDURE:? Conversion previous internal fixation to a right total hip arthroplasty posterior approach HISTORY OF PRESENT ILLNESS: Preoperative history and physical exam was performed on September 11, 2022.? This is a 67-year-old male who is been having ongoing pain for over 3 years.? Patient underwent a previous right hip cephalo-medullary nail by Dr. Matthew Wisdom on April 02, 2017.? Patient's pain can reach a size a 10/10 with activities.? His pain is been constant, dull, aching, sharp.? He has increased pain with going up and down stairs, walking, sitting and driving.? He does have start up pain.? Patient has difficult time with activities of daily living including housework.? He has fallen and tripped/stumbled due to the pain.? He feels unsafe walking at nighttime.? Patient has been using cane, crutches, walker for the past 5 years.? He has tried conservative measures including rest, ice, heat, elevation with minimal relief.? He has also been through previous physical therapy and home exercises.? 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 His tried oral medications including Tylenol without relief of pain.? After failing conservative measures and discussing treatment options with Dr. Matthew Wisdom, the patient does wish to proceed with a conversion previous internal fixation to a right total hip arthroplasty.? Patient currently denies any chest pain, shortness of breath, fevers chills or recent infections.? Patient has medical history pertinent for depression, hypertension, type 2 diabetes mellitus, hypercholesterolemia and previous mini stroke 78 years ago.? He has also had previous heart catheterization.? We have obtain surgical clearance from the primary care physician in which they do state engineering technical analyst has given clearance for patient to proceed with surgery. REVIEW OF SYSTEMS: Review Of Systems: Constitutional: Denies change in appetite, fever and weight change. Cardiovasular: Denies chest pain, heart murmur and irregular heartbeat. Respiratory: Denies cough, pneumonia, shortness of breath and tuberculosis. Gastrointestinal: Denies constipation, diarrhea, heartburn, nausea, rectal itching, bloody stools and vomiting. Genitourinary: Denies incontinence. Musculoskeletal: Reports pain and trouble walking, but denies leg swelling. Skin: Reports history of shingles and tattoo, but denies Raynaud's. Neurological: Reports ambulatory dysfunction but denies dizziness, numbness/tingling and tremor. Psychiatric: Denies anxiety, insomnia and stress. Hematologic/Lymphatic: Denies anemia, bleeding/bruising tendency and past transfusion. Reviewed and updated. PAST MEDICAL HISTORY: Advance Care Plan: Other Directive, LIVING WILL Effective Date: 05/14/2017 Past Medical History: Medical Problems: Arthritis, Depression, Diabetes, High Blood Pressure, Hypercholesterolemia, Stroke Accidents: Fracture - RT GREAT TOE ? FOOT FX RT Hip FX - (04/09/2017) Surgical Hx: Gallbladder RT Hip - (05/02/2017) SAW @[facility] RT Foot Amputation - (2019) PARTIAL - [facility] Anesthesia Complications: None Assistive Devices: Glasses - FOR DRIVING Reviewed and updated. SOCIAL HISTORY: Social History: Marital: .Occupation: Disabled.Work Status: Disabled.Hand Dominance: Right-handed. Personal Habits:? Cigarette Use: Former.Smokeless Tobacco: Never Used Smokeless Tobacco.E-Cigarette Use: Never used.Alcohol: Denies use.Drug Use: Denies Use.Enjoy Exercising: Never Exercises. Reviewed and updated. VITALS: Ht: 73 Wt: 222lb Wt k.699 BMI: 29.3 BP: 118/72 Pulse: 78 T: 98.1 T: 36.7C Pain Level: 7 O2SatR: 100 ALLERGIES: Atorvastatin Lisinopril? MEDICATIONS: Metformin HCL 500 mg 1 by mouth every day, Aripiprazole 10 mg 1 by mouth every day, Aspirin Adult Low Dose 81 mg by mouth 1 a day, Carvedilol 25 mg 1 by mouth twice a day, Cetirizine HCL 10 mg 1 by mouth every day, Vitamin D (Cholecalciferol) 50 mcg (1999 Ut) 1 tab, 1x/day, Clotrimazole 1 % apply cream topically to affected area twice daily, Docusate Sodium 100 mg twice a day, Furosemide 20 mg, Hydrophilic? twice a day to whole body, Insulin Aspart Flexpen 100 Unit/ML, Insulin Glargine 100 Unit/ML, Losartan Potassium 100 mg 1 by mouth every day, Melatonin 5 mg 3 at bedtime, Multi Vitamin? take 1 tablet by mouth once daily., Omeprazole 20 mg 1 by mouth every day, Rosuvastatin Calcium 20 mg 1 by mouth every day PRE-OP EXAM:? General appearance:NORMAL? ? ? Other: Eyes: Conjunctivae and lids: NORMAL? Pupils: ERR Ears, Nose, Mouth, and Throat: NORMAL? Other: Inspection of lips, teeth and gums: NORMAL? ?Other: Neck: Examination of neck: no masses noted. Respiratory: Assessment of respiratory effort: NORMAL? ?Other: ?Auscultation of lungs: clear to auscultation no wheezes, rhonchi or rales. Cardiovascular:? Auscultation of heart: regular rate and rhythm, no murmurs, gallops or rubs. PHYSICAL EXAMINATION: Patient does walk with an antalgic gait.? Patient has transmetatarsal amputation right foot.? There is 2 cm shorter right leg when compared to the left.? Right hip range of motion 80 flexion, internal rotation 5 external rotation 20.? He does have obligatory external rotation with flexion.? Sensation intact to light touch. IMAGING STUDIES: Previous x-rays of the right hip reveal severe stage IV osteoarthritis with bony erosions of the acetabulum and femoral head.? There is complete loss of joint space with large osteophyte formation.? Previous intertrochanteric fracture present with previous cephalo-medullary nail. IMPRESSION: 1.? Severe left hip osteoarthritis with previous cephalo-medullary nail 2.? Hypertension 3.? Type 2 diabetes mellitus 4.? Depression 5.? Hypercholesterolemia 6.? History of mini stroke 7-8 years ago 7.? Previous heart catheterization PLAN: Dr. Matthew Wisdom did discuss and review with the patient all treatment options including surgical versus nonsurgical options.? Patient does wish to proceed with the above-stated procedure.? Potential risks, benefits, and complications of the procedure were discussed in detail including but not limited to , infection, nerve and blood vessel damage, persistent pain, numbness, tingling, paresthesias, blood clot, pulmonary embolism, and requirement for possible further surgery.? The patient expressed full understanding and has no further questions for the doctor.? Patient does agree to proceed with the above-stated procedure and has signed the surgery consent form. We discussed the current risks associated with COVID 19.? This does include the risk of exposure while in the hospital.? Patient was reassured local hospitals have low infection rates and are taking all necessary precautions to avoid exposure to patients.? In addition, we discussed strategies that can be used to help limit exposure including those that limit the patient's time in the hospital.? Also using strategies to limit the patient's need for continued inpatient services after being discharged from the hospital.? Patient was notified that we will need to comply with any screening or testing the hospital wishes to perform or that surgery may be delayed for any positive results. This dictation was created using voice recognition software. Phonetic and/or grammatical errors may exist. ___? I have re-examined the patient.? There are no clinical changes since date of exam. ___? See progress notes for changes. ___? Dictated on admission Date: ? ? ?Time: Signature:
[2022-09-18 10:35] LABS: Absolute Lymphocyte Count 0.77 X10^3/uL (0.83-4.51); Absolute Neutrophil Count 3.1 X10^3/uL (2.0-7.7); Basophil# 0.04 X10^3/uL; Basophil% 0.9 % (0-1); Eosinophil# 0.13 X10^3/uL; Eosinophils% 2.9 % (0-5); Hematocrit 41.1 % (40-54); Hemoglobin 13.8 g/dL (13.0-16.5); Lymphocyte # 0.77 X10^3/ul (0.83-4.51); Lymphocyte % 17.5 % (19-41); Mean Corp Hgb Conc 33.6 g/dL (32-36); Mean Corpuscular Hgb 30.3 pg (27.0-32.0); Mean Corpuscular Volume 90.1 fL (80-94); Mean Platelet Vol. 10.7 fl (6.2-12.0); Monocyte# 0.32 X10^3/uL; Monocyte% 7.3 % (0-10); NRBC Flagged by Analyzer 0 % (0-5); Neutrophil # 3.13 X10^3/uL (2.7-7.7); Neutrophil % 70.9 % (47-70); POSITIVE COUNT YES; Platelet Count 98 K/mm3 (150-450); RBC Distribution Width CV 13.5 % (11.6-14.6); RBC Distribution Width SD 44.4 fl (35.1-43.9); Red Blood Count 4.56 M/mm3 (4.6-6.2); White Blood Count 4.4 K/mm3 (4.4-11.0)
[2022-09-18 10:37] LABS: Differential Indicated SCAN CRITERIA MET
[2022-09-18 10:56] LABS: Hemoglobin A1c 5.8 % (3.8-5.6)
[2022-09-18 10:58] LABS: Anion Gap 4 (5-15); BUN 21 mg/dL (7-18); BUN/Creat Ratio 18.1 RATIO (10-20); Calcium,Total 9.6 mg/dL (8.5-10.1); Chloride 107 mmol/L (98-107); Creatinine, Serum 1.16 mg/dL (0.70-1.30); EST Glomerular Filtration Rate 67 mL/min (>60); Est Glom Filt Rate - Afr Amer 81 mL/min (>60); Glucose 170 mg/dL (74-106); Potassium 4.7 mmol/L (3.5-5.1); Sodium Level 140 mmol/L (136-145)
[2022-09-18 11:01] LABS: Differential Comment SCANNED
[2022-09-18 11:05] LABS: Magnesium 1.8 mg/dL (1.6-2.6)
[2022-09-27] VITALS (12 sets, daily range): BP systolic 100–160; BP diastolic 61–90; PULSE 62–99; RESP 16–18; TEMP 36.2–36.7; O2SAT 93–100; BMI 29.0; BMI 30.8
[2022-09-27] MEDS: Magnesium 2 GM for ERAS IV (09:33)
[2022-09-27] MEDS: Lactated Ringers 1,000 ML 999 ML IV ×2 (09:33→14:27)
[2022-09-27] MEDS: Celecoxib 200 MG Capsule 400 MG PO (09:34)
[2022-09-27] MEDS: Gabapentin 600 MG Tablet PO (09:34)
[2022-09-27] MEDS: Acetaminophen 500 MG Tablet 1000 MG PO ×2 (09:34→22:29)
[2022-09-27 09:40] LABS: Bedside Glucose 111 mg/dL (74-106)
[2022-09-27] MEDS: Lactated Ringers 1,000 ML 75 ML IV ×3 (10:19→12:56)
--- NOTE | 2022-09-27 11:15 | HIP_PTH ---
PATIENT: DAMON WYLIE LOC: MS3 U#:[id number] AGE/SX: 67/M ROOM: [facility]09/27/[address]: Dr. Matthew Wisdom MD : 1955 BED: 1 DIS: 10/03/2022 SPEC #: [id number] RECD: 09/27/22 16:36 STATUS: HEIKE REMarva #: [id number] PATI: 09/27/22 11:[address]: Matthew Wisdom DEPT: SURGICAL PATHOLOGY RECD BY: Janell Florez ENTERED: 09/28/22 12:30 SP TYPE: TOTAL HIP OTHR DR: MD Dr. Enoch Hernandes MD [facility] Tissues: Hip, NOS Procedures: Decalcification bone/plaque Surgery Specimen Level IV HEADER OPERATION: ERAS, robotic conversion previous internal fixation PRE-OP DIAGNOSIS: Severe left hip osteoarthritis with previous cephalomedullary nail TISSUE SUBMITTED: Bone and soft tissue right hip MICROSCOPIC DIAGNOSIS Bone and tissue of right hip, total hip resection: Severe degenerative joint disease. AM:ruby 10/05/2022 MICROSCOPIC DESCRIPTION Slides are reviewed. GROSS DESCRIPTION Received is one container labeled with the patient's name and designated bone and soft tissue hip, right. The specimen consists of a blair femoral head with portion of femoral neck. The femoral head measures 5.5 x 5.5 x 5 cm and the femoral neck measures 1.5 cm in length. The articular surface displays prominent osteophyte formation, eburnation and bone erosion. Also present in the specimen container are multiple irregular fragments of bone reamings measuring in aggregate 9 x 9 x 3 cm. Senior Telecommunications Consultant sections are submitted in two cassettes after decalcification as follows: 1 ? bone reamings, 2 ? femoral head. / SJ:ruby 09/28/2022 TC:5 CPT: 96388, 63893
[2022-09-27] MEDS: Cefazolin 2 GM in 0.9% Normal Saline 100 ML IV (11:33)
[2022-09-27] MEDS: TXA 1000mg in NS100 100ml (IVPB at Incision) 660 MG IV (11:40)
[2022-09-27] MEDS: Heparin 10,000 UNITS/10 ML Vial 10000 UNITS (13:00)
[2022-09-27] MEDS: TXA 1000mg in NS100 100ml (IVPB at Closure) 660 MG IV (14:13)
--- NOTE | 2022-09-27 14:43 | PCM.OPRPT ---
Report of Operation Date of Procedure: 09/27/22 Pre-Operative Diagnosis: Posttraumatic osteoarthritis right hip Right hip intertrochanteric fracture malunion Post-Operative Diagnosis: Posttraumatic osteoarthritis right hip Right hip intertrochanteric fracture malunion Surgery/Procedure Performed:: Conversion of previous hip surgery to robotic assisted total replacement Description of Surgical Findings:: Stable hip. Leg lengths were equal based on position and on the bed. In removing the nail the tip of the greater trochanter did fracture we use this like a trochanteric osteotomy for visualization and repaired at the end of the case. Surgeon: Matthew Wisdom school age teacher: Rohan Serra Type of Anesthesia: General Anesthesiologist: [employer] Special Medications: 2 g Ancef, 1 g TXA at incision, 1 g TXA closure, 10 mg Decadron, joint cocktail (5 mg Duramorph, 30 mL of 0.5% Ropivicaine, 1000 units of epinephrine, 30 mg of Toradol) Ancef was redosed 2 hours after incision Specimen's removed: Bony cuts Estimated Blood Loss (mL): 500 Fluids Replaced: 2300 mL crystalloid, 230 cc of Cell Saver blood. Description of Procedure: Implants 1. Milagro Trident 2 56 mm acetabular shell 2. [place] cobalt-chromium MDM acetabular liner alpha code F 3. Milagro X3 MDM insert 46F 4. [place] size 12 secure fit advanced 132 degree neck angle femoral stem 5. [place] Biolox delta ceramic 28 mm +4 mm femoral head Indications: 67-year-old male with a history of an intertrochanteric fracture in April 2017. Patient subsequently had malunion with shortening and progression of osteoarthritis as noted on x-rays with joint space narrowing, subchondral sclerosis and osteophyte formation. There is significant bony overgrowth of the nail both proximally and over the lateral screws. Risk and benefits of the procedure were discussed the patient which was converting the hip to total hip replacement. Risk include but not limited to blood loss, DVTs, PEs, nervous damage, infection, the risk of anesthesia including loss of life or limb. Patient demonstrated understanding and wished to proceed. Procedure: On the date of the procedure patient's right hip was marked in the preoperative area. Patient was brought back to the operating room with her transferred the table in the supine position. Anesthesia assumed control of the C-spine and airway and remained to control throughout the remainder of the procedure. Once patient was properly anesthetized patient was placed in lateral acuity position with the right hip in the air. All bony prominences were identified well-padded. Patient was secured into position using the pegboard. Once he was adequately positioned the right lower extremity was then prepped in a sterile fashion while the surgeon scrubbed. Upon reentering the room the right lower extremity was draped in the standard orthopedic fashion. Timeout was called everyone agreed upon the side, the site, and procedure to be performed, patient's identity and antibiotics given. At this time the incision was marked out incorporating the previous lateral incisions. There was no distal interlocking screw. Incision was taken down through skin subcutaneous tissue fat down to fascia. Hemostasis was obtained on the superficial dissection. Due to our slightly posterior incision from his previous incisions we did make our fasciotomy in the T FL slightly anterior but in line with our skin incision. A currently retractor was placed and the posterior structures were identified. At this time 2 pins were placed in the iliac crest for robotic assistance. Once these pins were placed and the array was set prior to dislocating the hip we placed a checkpoint and got her initial leg length and offset. From here we cope carefully released the posterior external rotators we did take the piriformis we also take the capsule. Once we are able to identify the head we directed our attention over to the lateral femur in order to identify the 2 screws in the cephalomedullary nail. We had removed bone from the lateral cortex which had overgrown the nail screws. We carefully remove this machine screw and then we engaged the lag screw. Once this was done we were able to dislocate the hip with a leg screw in place to support the neck as well as provide into rotation as we remove the nail. The nail had significant mount of proximal overgrowth we carefully tried to remove it in room some without. We then were able to place the extraction bolt and remove the nail. As the nail came out patient did sustain a small posterior superior greater trochanteric fracture. This was used throughout the procedure for exposure and repaired at the end. After the extraction bolt was engaged the lag score was removed and the nail was removed. After removing the nail and light scale we were able to make our femoral neck cut using a saw and protecting the soft tissues with 2 cobras. Once the femoral head was removed we then carefully exposed the proximal femur and reamed and then broached to a size 12. Proximal femur was then retracted out of the way and the acetabulum was exposed. Soft tissue was removed from the acetabulum. Using the robotic system we then registered the acetabulum. We then reamed to 56 mm reamer. Using the robotic system we then placed the cup and 25 degrees anteversion and 40 degrees of abduction. However, for seating the cup we did copiously irrigate out the wound with 3 L of normal saline under low-pressure lavage. Once the cup was engaged it was firmly fixed and no screws were needed. The MDM liner was then impacted into place and locking/Nieves taper mechanism were verified. Once we are happy with this our tension was turned again towards the femur. 830 degree neck angle trial neck was placed with a +4 mm femoral head trial. This gave us equal leg lengths based on how the patient was sitting on the bed comparing the distal poles of the patella and heels. Patient had appropriate stability with 9 degrees flexion and internal rotation. Once were happy with these trials hip was dislocated and trial implants were removed. Wound was copiously irrigated with normal saline 3 L under low-pressure lavage and final implants were opened. Final implants were impacted into place. Trunnion was cleaned femoral head was impacted into place and hip was reduced. With the hip reduced we passed 2 cables below the lesser trochanter and placed a small call plate over the small posterior greater trochanteric fracture. We carefully tightened it down sequentially tightening the 2 cables once we were tight enough the cables were crimped and locked into place. Hip was again taken through range of motion and remained stable. At this time due to the lengthening of the extremity from the malunion the posterior structures were too short for appropriate repair. Wound was irrigated out with dilute Betadine solution for 3-minute lavage followed by chlorhexidine lavage followed by copious amounts of normal saline. In order to get to the screws we did have to split the vastus lateralis. This fascia was repaired with #1 Vicryl. Fascia was then closed using #1 Vicryl interrupted sutures for the central portion and runners proximally and distally. Fatty subcutaneous tissue was closed using #1 Vicryl skin was closed in 2-0 Vicryl and final closure was done with nylon sutures in interrupted fashion. Sterile dressing was placed. Patient was awakened anesthesia and transferred the PACU for recovery in stable condition. During the course of the procedure the physician pharmacy general manager (PE) played a vital role. Their intimate knowledge of my steps in the procedure aided in safe and expedient completion of the procedure. The PE played a vital rolls in positioning particularly in obtaining the appropriate lateral decubitus position. The PE was also vital in the retraction of soft tissues during the exposure and especially the femoral work as this is a vital part of the procedure to prevent complications and fractures. The PE was also vital and protecting soft tissues during times of bony cuts and reaming. He also played a vital role in closure with my direct supervision. The PE was also important during reduction and dislocation of the joint and trials intraoperatively. Postop plan: Patient will be weightbearing as tolerated with no active abduction for 6 weeks. Doxycycline 100 mg p.o. twice daily postoperatively due to high risk nature of the case and finally patient will be placed on aspirin 81 mg p.o. twice daily. Complications Greater trochanteric fracture was encountered and fixed. Admit VTE Documentation VTE Present on Admission: No VTE Mechan Device Prophylaxis: SCD's and Thigh High KATINA Hose VTE Pharm Prophylaxis ordered?: Yes
--- NOTE | 2022-09-27 15:40 | RAD_ITS ---
EXAM: XR RIGHT HIP WITH PELVIS WHEN PERFORMED, 2 OR 3 VIEWS CLINICAL INDICATION: Post Op -- AP both hips on single siria/lateral of op hip PACU TECHNIQUE: Two or three views of the right hip with pelvis when performed. This report was created using [employer] report generation technology. COMPARISON: None. FINDINGS: BONES/JOINTS: Right hip prosthesis in place in satisfactory position. SOFT TISSUES: Soft tissue gas noted along the right buttock and proximal thigh related to recent surgery. RAD/Hip Min 2 Views (Portable) IMPRESSION: Satisfactory postop changes. Electronically Signed: Jan Russo MD at 16:05 EST ,
[2022-09-27 15:55] LABS: Bedside Glucose 145 mg/dL (74-106)
[2022-09-27] MEDS: Lactated Ringers 1,000 ML 125 ML IV (16:30)
[2022-09-27] MEDS: oxyCODONE 5 MG Tablet PO (18:45)
--- NOTE | 2022-09-27 20:11 | PN.HOSP_ITS ---
Subjective Subjective Patient with a significant history of hypertension; partial amputation of right foot; diabetes mellitus; history of alcohol abuse; and a bileaflet aortic valve who is postop day 0 for conversion of previous right hip surgery to robotic assisted total replacement. Internal medicine service has been consulted to he lp manage chronic medical condition including hypertension and diabetes. Patient reports being fatigued after surgery and with some tolerable pain at his right hip. Objective Data Objective Data Vital Signs: Vital Signs Temp Pulse Resp BP Pulse Ox O2 Del Method O2 Flow Rate 97.3 F L 99 18 160/82 H 97 Room Air 4 09/27/22 18:42 09/27/22 18:42 09/27/22 18:42 09/27/22 18:42 09/27/22 18:42 09/27/22 18:42 09/27/22 17:00 Oxygen Flow Rate (L/min) 4 Oxygen Delivery Method Room Air Weight: 100 kg Body Mass Index (BMI) 29.0 Intake & Output: Intake and Output for Last 24 Hours 09/25/22 09/26/22 09/27/22 23:59 23:59 23:59 Intake Total 5434 / 5434 Balance 5434 / 5434 Lab / Micro Data Result Diagrams: 09/18/22 09:42 09/18/22 09:42 Labs: Laboratory Results - last 24 hr 09/27/22 09:19: POC Glucose 111 H 09/27/22 15:34: POC Glucose 145 H Micro: Microbiology 09/18/22 09:42 Swab (Method) Nasal Screen MRSA/MSSA - Final Radiography Diagnostic Testing: Radiology Impression Hip X-Ray 09/27/22 15:40 IMPRESSION: Satisfactory postop changes. Electronically Signed: Jan Russo MD at 16:05 EST , Physical Exam Narrative Physical exam: General: Well-nourished, well-developed. Head: Normocephalic, atraumatic, no tenderness Eyes: Vision is grossly intact. EOMI ENT, no trauma, moist mucous membranes, no rhinorrhea Neck: Nontender, No thyromegaly. CVS: Regular rate and rhythm. S1-S2 present. No murmur, gallop or rub. Respiratory : clear to auscultation bilaterally, chest wall nontender, no wheez ing Abdomen: Soft, nontender, nondistended, normal bowel sounds, no masses : Deferred Back: Nontender, no CVA tenderness, no midline spinal tenderness, deformities, step-offs Extremities: Partial amputation of right foot. Left hip dressing dry and intact, tender. Right hip nontender. Skin: Normal color, no trauma, abrasions Neuro: Alert, oriented, cranial nerves II through XII grossly intact. Psychiatry: Normal mood. Normal affect. Not depressed. Not anxious. Assessment & Plan Assessment/Plan (1) Status post right hip replacement: (2) Hypertension: QUALIFIERS: Hypertension type: essential hypertension (3) Diabetes mellitus with diabetic polyneuropathy: PLAN: Plan Status post right hip fracture Managed by orthopedic surgery. Agrees with pain management and prophylactic antibiotics. Hypertension Blood pressure is not within goal Carvedilol and losartan continued. As needed hydralazine ordered. Trend blood pressure and adjust blood pressure medications. Review of labs shows unremarkable sodium and potassium on 09/18/2022.. Diabetes mellitus with diabetic polyneuropathy Patient with mild hyperglycemia on presentation Review of labs shows A1c on 09/18/2022 was 5.8. Hold metformin. Basal insulin continued. Prandial insulin de-escalated Monitor Accu-Cheks Correction scale insulin ordered. High intensity statin continued. Cardiac and diabetic diet ordered. DVT prophylaxis Agrees with SCD; KATINA bates and aspirin. Thank you for your kind consult. Internal medicine service will continue to follow. Charges/Coding Visit Charges Inpatient E&M: 67929 Subs Hosp L2
[2022-09-27] MEDS: Cefazolin 1 GM/50 ML BAG IV (20:55)
--- NOTE | 2022-09-27 22:20 | NURSING ---
Patient had been in PACU from [id number]. Q2 hour post op checks completed there.
[2022-09-27] MEDS: Senna/Docusate Sodium 1 Tablet 2 TABLET PO (22:29)
[2022-09-27] MEDS: Atorvastatin Calcium 80 MG Tablet PO (22:29)
[2022-09-27] MEDS: Carvedilol 25 MG Tablet PO (22:30)
[2022-09-27 23:15] LABS: Bedside Glucose 217 mg/dL (74-106)
[2022-09-28] VITALS (8 sets, daily range): BP systolic 87–105; BP diastolic 52–66; PULSE 67–93; RESP 17–18; TEMP 36.6–37.1; O2SAT 98–100
[2022-09-28] MEDS: oxyCODONE 5 MG Tablet PO ×3 (03:02→18:35)
[2022-09-28] MEDS: Ketorolac 15 MG/ML Vial IV ×2 (03:04→23:17)
--- NOTE | 2022-09-28 03:10 | NURSING ---
Patient was bladder scanned for >999. At this time he is refusing to be straight cath. If I have to get cathed, I have to get cathed. At this point I'd like to keep trying. This RN told him to keep trying to urinate. Will monitor.
[2022-09-28] MEDS: Cefazolin 1 GM/50 ML BAG IV (03:17)
[2022-09-28 05:35] LABS: Hematocrit 31.7 % (40-54); Hemoglobin 10.7 g/dL (13.0-16.5); Mean Corp Hgb Conc 33.8 g/dL (32-36); Mean Corpuscular Volume 91.9 fL (80-94); Mean Platelet Vol. 10.4 fl (6.2-12.0); POSITIVE COUNT YES; Platelet Count 93 K/mm3 (150-450); RBC Distribution Width CV 13.6 % (11.6-14.6); RBC Distribution Width SD 45.5 fl (35.1-43.9); Red Blood Count 3.45 M/mm3 (4.6-6.2); White Blood Count 5.4 K/mm3 (4.4-11.0)
[2022-09-28 06:05] LABS: Anion Gap 4 (5-15); BUN 17 mg/dL (7-18); BUN/Creat Ratio 14.5 RATIO (10-20); Calcium,Total 8.3 mg/dL (8.5-10.1); Chloride 105 mmol/L (98-107); Creatinine, Serum 1.17 mg/dL (0.70-1.30); EST Glomerular Filtration Rate 66 mL/min (>60); Est Glom Filt Rate - Afr Amer 80 mL/min (>60); Estimated Creatinine Clearance 69.24 ml/min; Glucose 218 mg/dL (74-106); Potassium 4.4 mmol/L (3.5-5.1); Sodium Level 137 mmol/L (136-145)
[2022-09-28] MEDS: Acetaminophen 500 MG Tablet 1000 MG PO ×3 (06:55→23:00)
[2022-09-28] MEDS: 0.9% Saline Lock 10 ML Syringe IV ×4 (06:57→23:13)
[2022-09-28] MEDS: Aspirin 81 MG TAB.CHEW PO ×2 (08:39→17:20)
[2022-09-28] MEDS: Cholecalciferol (VIT D3) 25 MCG TABLET (1,000 UNITS) 50 MCG PO (08:39)
[2022-09-28] MEDS: Senna/Docusate Sodium 1 Tablet 2 TABLET PO ×2 (08:40→22:59)
[2022-09-28] MEDS: Famotidine 20 MG Tablet PO (08:40)
[2022-09-28] MEDS: Insulin Glargine-YFGN 100 UNIT/ML Pen 54 UNIT SC (08:41)
[2022-09-28] MEDS: Ensure Surgery 237 ML LIQUID PO ×3 (08:52→18:35)
--- NOTE | 2022-09-28 09:45 | PN.ORTHO_ITS ---
Subjective Subjective The patient was sitting in bed upon examination. Patient denies any chest pain, shortness of breath, nausea or vomiting, or calf pain. Pain is controlled on medications. No adverse overnight events. Patient does complain of some lightheadedness. Patient underwent previous right hip cephalomedullary nail on May 02, 2017. He has had ongoing pain for the past 3 years. Patient this morning appears stable. During surgery while removing the nail the tip of the greater trochanteric did fracture. He does have limitation postoperatively with no active abduction 6 weeks postoperatively. We will also continue with posterior hip dislocation precautions. He states he was able to get up this morning for the bathroom and tolerated well. He does have some soreness. Patient has previous medical history of alcohol abuse but he states he has been sober for the past 5 years. Medicine is on board. In surgery he did have estimated blood loss of 500 cc and he received 230 cc of Cell Saver. Case was discussed with the hospitalist. She is ordering orthostatic testing. He also has history this year of right lower leg cellulitis in which she was treated in the hospital. He is currently on doxycycline postoperatively. Objective Data Objective Data Vital Signs: Vital Signs Temp Pulse Resp BP Pulse Ox O2 Del Method O2 Flow Rate 98.0 F 74 18 94/56 L 98 Room Air 4 09/28/22 08:54 09/28/22 08:54 09/28/22 08:54 09/28/22 08:54 09/28/22 08:54 09/28/22 08:54 09/28/22 02:57 Oxygen Flow Rate (L/min) 4 Oxygen Delivery Method Room Air Weight: 106 kg Body Mass Index (BMI) 30.8 Intake & Output: Intake and Output for Last 24 Hours 09/26/22 09/27/22 09/28/22 23:59 23:59 23:59 Intake Total 5827.75 / 6327.75 1050 / 1050 Output Total 450 / 450 Balance 5827.75 / 6327.75 600 / 600 Lab / Micro Data Result Diagrams: 09/28/22 04:40 09/28/22 04:40 Labs: Laboratory Results - last 24 hr 09/27/22 15:34: POC Glucose 145 H 09/27/22 22:34: POC Glucose 217 H 09/28/22 04:40: WBC 5.4, RBC 3.45 L, Hgb 10.7 L, Hct 31.7 L, MCV 91.9, MCH 31.0, MCHC 33.8, RDW Std Deviation 45.5 H, RDW Coeff of Hakeem 13.6, Plt Count 93 L, MPV 10.4 09/28/22 04:40: Sodium 137, Potassium 4.4, Chloride 105, Carbon Dioxide 28.0, Anion Gap 4 L, BUN 17, Creatinine 1.17, Estim Creat Clear Calc 69.24, Est GFR (MDRD) Af Amer 80, Est GFR (MDRD) Non-Af 66, BUN/Creatinine Ratio 14.5, Glucose 218 H, Calcium 8.3 L Micro: Microbiology 09/18/22 09:42 Swab (Method) Nasal Screen MRSA/MSSA - Final Radiography Diagnostic Testing: Radiology Impression Hip X-Ray 09/27/22 15:40 IMPRESSION: Satisfactory postop changes. 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 Sensation is intact to light touch to saphenous, sural, superficial and deep peroneal, and tibial distribution. Dressing is clean dry and intact. Negative Homans bilaterally, negative signs and symptoms of DVT. Const alert, oriented x3 and no apparent distress Assessment & Plan Assessment/Plan (1) Status post right hip replacement: PLAN: 1. S/P conversion of previous right hip surgery to robotic assisted right posterior total hip arthroplasty POD #1 2. Continue Pain Medications: Tylenol and oxycodone 3. DVT Prophylaxis: Take 81 mg aspirin twice daily for 4 weeks postoperatively for DVT prophylaxis. Patient denies previous history of DVT or pulmonary embo lism 4. PT/OT: Weightbearing as tolerated with walker. No active abduction for 6 weeks postoperatively. We will continue with posterior hip dislocation precautions for 3 months postoperatively 5. H & H: 10.7/31.7, asymptomatic. Postoperative anemia secondary to acute blood loss from surgery without any intra operative complications. Patient had estimated blood loss of 500 cc and did receive 230 cc of Cell Saver intraoperatively. Discussed with hospitalist and currently are going to obtain orthostatic vitals. 6. Continue postoperative medical management per medicine 7. Continue antibiotics postoperatively. Currently on doxycycline for 2 weeks postoperatively due to high risk nature of the case and previous history of right lower leg cellulitis. Currently afebrile 8. Encouraged Incentive Spirometry 9. Disposition: Case was discussed in detail with the hospitalist and case tata butler. Patient does live home alone and has steps to manage. He has limitations with no active abduction and posterior hip dislocation precautions. Due to these precautions and home living arrangements I do feel patient would benefit from senior care facility versus rehab. Case management is currently involved with regards to appropriate discharge planning. I have reviewed the [place] Automated Rx Reporting System (OARRS) report for this patient for refill pattern and other prescriber involvement as part of the appropriate surveillance for the provision of acute and chronic controlled m edications. The report was requested and reviewed on the date of this entry and was considered in the prescribing process. This dictation was created using voice recognition software. Phonetic and/or grammatical errors may exist.
--- NOTE | 2022-09-28 10:22 | CASEMGMT ---
Social Work SW spoke with ARELY Madrigal who states pt will likely need SNF placement. Pt insurance listed as [place]. Phone call placed to Silvio at [facility]. Silvio states pt is not eligible for ECF coverage through the [place]. Per Silvio, as of October 2021 pt had [place] Medicaid. RNCM updated and will speak with pt regarding insurance coverage. SW will continue to follow for discharge planning. GERALD Ayala
--- NOTE | 2022-09-28 10:45 | CASEMGMT ---
TAMMIE CHILDS Assessment: Face to Face with pt for initial transition planning/care coordination assessment. TAMMIE CHILDS introduced self and role at [facility], pt voices understanding and consents to assessment. Pt in bed, reviewing menu. Appears to be in no distress. Pt is A/O x4 and answers all questions appropriately at this time. Care providers, pharmacy, and demographics verified/updated. 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 PCP: Pt can't recall the name of PCP. Pt states PCP is through the [email or web address]. Specialists: Manager Film, Wheelchair Van Operator First Responder, and Orthopedic doctor through OR. Unsure of names. Preferred Pharmacy: [facility], [place]. Insurance: [email or web address], [employer] [place] Medicare. Prescription Benefit: Yes. LW/HPOA: Pt reports having LW/HPOA. Pt states his is HPOA. However, pt hasn't seen his in over a year and doesn't know where she is. Per pt, has a five year protection order on him. Spoke with pt regarding naming someone else for HPOA that would be accessible. Pt willing to review LW/HPOA with SW. MICHELL on MS3 advised. LNOK: Francy Kent- . Listed as next of kin. However, states protection order is in place. Pt states he really has no one else to list. Living Arrangements: Pt lives alone in a two story home. Home appears to be a multi-family unit home. Two levels. Pt states there are 3 stairways in the home. There are 6-12 steps to enter the home. Pt has some difficulty with stairs so spends much of his time in his kitchen. Pt was I of ADLs prior to being admitted to the hospital. Transportation: Pt drives self but does not have a car. Pt maybe has a friend who can assist. DME/HHC/SNF: Pt has the following: cane, walker, wheelchair, shower chair, bedside commode. Pt has an BUILDING WRECKER from the OR. Pt has been in TCU in the past. Pt states is concerned with going home. Pt would like to go to TCU or a SNF if able. CM to follow. Advised pt to ask CM if any further question/concerns/needs arise, voices understanding. Pt Goal: TCU or SNF. Plan:?TBD.
--- NOTE | 2022-09-28 10:49 | PCM.PN.HOSP ---
Subjective Subjective Follow-up on postop medical management: Patient was seen and examined. Denied any fever or chills or chest pain or dizziness or palpitation. Discussed with orthopedics, patient will be discharged to alf facility as he lives alone and has multiple steps in his home. Objective Data Objective Data Vital Signs: Vital Signs Temp Pulse Resp BP Pulse Ox O2 Del Method O2 Flow Rate 98.0 F 74 18 94/56 L 98 Room Air 4 09/28/22 10:12 09/28/22 10:12 09/28/22 10:12 09/28/22 10:12 09/28/22 10:12 09/28/22 10:12 09/28/22 10:12 Oxygen Flow Rate (L/min) 4 Oxygen Delivery Method Room Air Weight: 106 kg Body Mass Index (BMI) 30.8 Intake & Output: Intake and Output for Last 24 Hours 09/26/22 09/27/22 09/28/22 23:59 23:59 23:59 Intake Total 5827.75 / 6327.75 1050 / 1050 Output Total 450 / 450 Balance 5827.75 / 6327.75 600 / 600 Lab / Micro Data Result Diagrams: 09/28/22 04:40 09/28/22 04:40 Labs: Laboratory Results - last 24 hr 09/27/22 15:34: POC Glucose 145 H 09/27/22 22:34: POC Glucose 217 H 09/28/22 04:40: WBC 5.4, RBC 3.45 L, Hgb 10.7 L, Hct 31.7 L, MCV 91.9, MCH 31.0, MCHC 33.8, RDW Std Deviation 45.5 H, RDW Coeff of Hakeem 13.6, Plt Count 93 L, MPV 10.4 09/28/22 04:40: Sodium 137, Potassium 4.4, Chloride 105, Carbon Dioxide 28.0, Anion Gap 4 L, BUN 17, Creatinine 1.17, Estim Creat Clear Calc 69.24, Est GFR (MDRD) Af Amer 80, Est GFR (MDRD) Non-Af 66, BUN/Creatinine Ratio 14.5, Glucose 218 H, Calcium 8.3 L Micro: Microbiology 09/18/22 09:42 Swab (Method) Nasal Screen MRSA/MSSA - Final Radiography Diagnostic Testing: Radiology Impression Hip X-Ray 09/27/22 15:40 IMPRESSION: Satisfactory postop changes. Electronically Signed: Jan Russo MD at 16:05 EST , Physical Exam Narrative Physical exam: General: Alert, Oriented x3, Cooperative, No apparent distress HEENT: Atraumatic Oral: Moist Mucosa Neck: Supple Lungs: Clear to auscultation Cardiovascular: HS I+II, regular, no murmurs Abdomen: Bowel Sounds Present, Soft, Non Tender Extremities: No edema, tenderness over the right hip, dressing intact Skin: No rashes, No breakdown Neurological: Grossly intact Psych/Mental Status: Appropriate Assessment & Plan Assessment/Plan (1) Status post right hip replacement: (2) Hypertension: QUALIFIERS: Hypertension type: essential hypertension (3) Diabetes mellitus with diabetic polyneuropathy: PLAN: Plan 1. POD #1 status post conversion of previous hip surgery to robotic assisted total replacement Pain is fairly controlled, continue current pain regimen PT and OT to evaluate and treat Follow-up with orthopedics recommendations 2. Transient hypotension, blood pressure in the 80s, will give fluid boluses, continue maintenance fluid We will put holding parameters on blood pressure medications 3. Hypertension/hyperlipidemia/history of stroke Continue on blood pressure meds with holding parameters, continue on atorvastatin 3. 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 DVT prophylaxis?Per primary team; aspirin twice daily Charges/Coding Visit Charges Inpatient E&M: 24573 Subs Hosp L3
[2022-09-28 11:30] LABS: Bedside Glucose 191 mg/dL (74-106)
[2022-09-28] MEDS: Insulin Lispro 100 UNIT/ML INSULN.PEN 10 UNIT SC ×2 (11:48→17:20)
--- NOTE | 2022-09-28 12:53 | CASEMGMT ---
Addendum entered by Radha Estrada 09/28/22 14:18: Social Work SW received message from TCU that they are not in network with pt insurance. SW met with pt and informed of this. Pt states next SNF choice is 1. [facility] and 2. [facility]. SW spoke with pt regarding healthcare POA naming his . Pt states he and his are going through a divorce and she has a protective order out. SW questioned if pt may need to consider another option for health care decision maker. Pt states he has no one else. No children, siblings, friends or family that he could think of. Pt Francy remains pt's contact. Referral made to [facility]. Plan: [facility], pending acceptance and precert GERALD Ayala Original Note: Social Work Per RNCM pt does have [employer] Medicare. SW updated registration who was able to verify pt insurance. MICHELL spoke with Jocelyn in TCU and faxed copy of insurance card for review to see if TCU is in network with insurance. SW will await return call from TCU. MICHELL met with pt and introduced self and role of SW. Pt confirms desire to go to SNF. A list of SNF providers including quality and resource use data and consistent with the patient?s preferred geographic region, medical needs, and insurance network were provided from the [facility]. Pt preferred provider is [facility]. SW informed pt TCU is looking into insurance coverage. SW requested pt review list and pick other choices in the event TCU cannot accept. Pt will review list and MICHELL will follow up later today. GERALD Ayala
--- NOTE | 2022-09-28 15:38 | CASEMGMT ---
Addendum entered by Radha Estrada 09/28/22 15:49: [facility] returned call, received referral and are reviewing at this time. GERALD Mariscal Original Note: Social Work VM left at [facility] to confirm they received referral. Will await return call. GERALD Ayala
[2022-09-28 17:25] LABS: Bedside Glucose 164 mg/dL (74-106)
[2022-09-28] MEDS: Atorvastatin Calcium 80 MG Tablet PO (22:59)
[2022-09-28] MEDS: Doxycycline 100 MG CAPSULE PO (22:59)
[2022-09-29 00:55] LABS: Bedside Glucose 187 mg/dL (74-106)
[2022-09-29 03:01] VITALS: BP 105/59; PULSE 74; RESP 18; TEMP 36.9; O2SAT 97
[2022-09-29 05:27] LABS: Hematocrit 27.2 % (40-54); Mean Corp Hgb Conc 33.1 g/dL (32-36); Mean Corpuscular Hgb 30.4 pg (27.0-32.0); Mean Corpuscular Volume 91.9 fL (80-94); Mean Platelet Vol. 10.6 fl (6.2-12.0); POSITIVE COUNT YES; Platelet Count 72 K/mm3 (150-450); RBC Distribution Width SD 46.9 fl (35.1-43.9); Red Blood Count 2.96 M/mm3 (4.6-6.2); White Blood Count 3.8 K/mm3 (4.4-11.0)
[2022-09-29] MEDS: Acetaminophen 500 MG Tablet 1000 MG PO ×3 (06:51→21:02)
[2022-09-29 09:00] VITALS: BP 106/54; PULSE 88; RESP 15; TEMP 37; O2SAT 97
[2022-09-29] MEDS: Insulin Glargine-YFGN 100 UNIT/ML Pen 54 UNIT SC (09:00)
[2022-09-29] MEDS: Insulin Lispro 100 UNIT/ML INSULN.PEN 10 UNIT SC ×3 (09:00→16:27)
[2022-09-29] MEDS: Ensure Surgery 237 ML LIQUID PO ×2 (09:04→11:38)
[2022-09-29] MEDS: Aspirin 81 MG TAB.CHEW PO ×2 (09:08→16:28)
[2022-09-29] MEDS: Doxycycline 100 MG CAPSULE PO ×2 (09:09→21:03)
[2022-09-29] MEDS: Famotidine 20 MG Tablet PO (09:09)
[2022-09-29] MEDS: Meloxicam 7.5 MG Tablet PO ×2 (09:09→21:03)
[2022-09-29] MEDS: Senna/Docusate Sodium 1 Tablet 2 TABLET PO ×2 (09:10→21:03)
[2022-09-29] MEDS: Cholecalciferol (VIT D3) 25 MCG TABLET (1,000 UNITS) 50 MCG PO (09:10)
[2022-09-29 09:30] LABS: Bedside Glucose 189 mg/dL (74-106)
--- NOTE | 2022-09-29 10:06 | CASEMGMT ---
Addendum entered by Radha Estrada 09/29/22 16:10: Social Work 7000 Exemption form completed in [facility]. left with [facility] requesting the call MS3 unit if precert is obtained. GERALD Ayala Addendum entered by Radha Estrada 09/29/22 13:49: Social Work [facility] is able to accept pt. Precert will be started at this time. Pt updated and aware that [facility] can accept and MICHELL explained insurance process. Pt understanding that he will remain in hospital until insurance determination is made and because of the holiday weekend pt may be here through the weekend. Dr. Wisdom updated. Plan: [facility], pending precGERALD Dickey Addendum entered by Radha Estrada 09/29/22 12:29: Phone call to [facility] to check on status of referral. Chief Sales Officer states admissions is off today. SW inquired if someone else would review referral, dental office receptionist uncertain but would check. At this time no return call from [facility]. Referral sent to [facility]. Will await determination. Plan: [facility], pending acceptance and precert GERALD Ayala Original Note: Social Work [facility] states they are unable to accept pt due to insurance. Referral sent to pts second choice [facility]. MICHELL met with pt and provided update. Pt expresses understanding and states third choice if [facility] declines is the [facility] [place]. Plan: [facility], pending acceptance and kirstinert GERALD Ayala
[2022-09-29 12:00] VITALS: BP 110/68; PULSE 85; RESP 16; TEMP 36.7; O2SAT 97
[2022-09-29 12:15] LABS: Bedside Glucose 193 mg/dL (74-106)
--- NOTE | 2022-09-29 12:29 | PN.ORTHO_ITS ---
Subjective Subjective Patient is doing well overall. He does report some lightheadedness yesterday however after getting the Toradol and not having oxycodone so far today he has had less of this. He reports it more of a foggy brain states he is comfortable at this time. Notes that when he is up with therapy his leg lengths seem more equal than prior to surgery. His insurance has made placement difficult. He has partial amputation of his right foot and lives at home alone with stairs based on his therapy notes would be unlikely to manage home without assistance and will require placement at this time. Objective Data Objective Data Vital Signs: Vital Signs Temp Pulse Resp BP Pulse Ox O2 Del Method O2 Flow Rate 98.6 F 88 15 106/54 L 97 Room Air 4 09/29/22 09:00 09/29/22 09:00 09/29/22 09:00 09/29/22 09:00 09/29/22 09:00 09/29/22 09:00 09/29/22 03:01 Oxygen Flow Rate (L/min) 4 Oxygen Delivery Method Room Air Weight: 233 lb 11.04 oz Body Mass Index (BMI) 30.8 Intake & Output: Intake and Output for Last 24 Hours 09/27/22 09/28/22 09/29/22 23:59 23:59 23:59 Intake Total 5827.75 / 6327.75 2510 / 2510 Output Total 1225 / 1450 1125 / 1125 Balance 5827.75 / 6327.75 1285 / 1060 -1125 / -1125 Lab / Micro Data Attestation: I reviewed the patient's lab results. Result Diagrams: 09/29/22 04:46 09/28/22 04:40 Labs: Laboratory Results - last 24 hr 09/28/22 16:50: POC Glucose 164 H 09/28/22 23:28: POC Glucose 187 H 09/29/22 04:46: WBC 3.8 L, RBC 2.96 L, Hgb 9.0 L, Hct 27.2 L, MCV 91.9, MCH 30.4, MCHC 33.1, RDW Std Deviation 46.9 H, RDW Coeff of Hakeem 14.0, Plt Count 72 L , MPV 10.6 09/29/22 08:57: POC Glucose 189 H 09/29/22 11:35: POC Glucose 193 H Micro: Microbiology 09/18/22 09:42 Swab (Method) Nasal Screen MRSA/MSSA - Final Radiography Diagnostic Testing: Postoperative films were reviewed showing stable hip replacement Physical Exam Const alert, oriented x3 and no apparent distress Constitutional Narrative: Pleasant Resp normal respiratory effort Resp Narrative: No oxygen Extremity Extremity Narrative: Right lower extremity: Dressing is clean dry and intact Sensations intact to light touch saphenous, sural, superficial peroneal, deep peroneal, and tibial distributions Motors intact DF, PF calves are soft and supple, thigh is soft and supple. No excessive ecchymosis. Assessment & Plan Assessment/Plan (1) Status post right hip replacement: PLAN: 1. S/P conversion of previous right hip surgery to robotic assisted right posterior total hip arthroplasty POD #2 2. Continue Pain Medications: Tylenol and oxycodone 3. DVT Prophylaxis: Take 81 mg aspirin twice daily for 4 weeks postoperatively for DVT prophylaxis. Patient denies previous history of DVT or pulmonary embolism 4. PT/OT: Weightbearing as tolerated with walker. No active abduction for 6 weeks postoperatively due to intraoperative greater trochanteric fracture. We will continue with posterior hip dislocation precautions for 3 months postoperatively 5. HB: 9.0, asymptomatic. Postoperative anemia secondary to acute blood loss from surgery without any intra operative complications. Patient had estimated blood loss of 500 cc and did receive 230 cc of Cell Saver intraoperatively. 6. Continue postoperative medical management per medicine 7. Continue antibiotics postoperatively. Currently on doxycycline for 2 weeks postoperatively due to high risk nature of the case and previous history of right lower leg cellulitis. Currently afebrile 8. Encouraged Incentive Spirometry 9. Disposition: Case was discussed in detail with case management. Patient does live home alone and has steps to manage. He has limitations with no active abduction and posterior hip dislocation precautions. Due to these precautions and home living arrangements I do feel patient would benefit from alf facility versus rehab. Case management is currently involved with regards to appropriate discharge planning, at this time patient was denied from his initial choice due to type of insurance we are now exploring second and third options. Due to the long holiday weekend anticipated patient will likely not be ready for discharge until normal business hours resume next week discharge summary. At this point patient appears to be medically stable and if we are able to obtain pre-CERT today will be ready to discharge to a skilled facility. I have reviewed the [place] Automated Rx Reporting System (OARRS) report for this patient for refill pattern and other prescriber involvement as part of the appropriate surveillance for the provision of acute and chronic controlled medications. The report was requested and reviewed on the date of this entry and was considered in the prescribing process. This dictation was created using voice recognition software. Phonetic and/or grammatical errors may exist.
--- NOTE | 2022-09-29 12:49 | PCM.TXEXTCAR ---
Diet Diet Order/Speech Therapy: 09/27/22 22:00 Diet: Cardiac: Calorie-Controlled Is pt able to select menu?: Yes How many daily calories?: 1800 calorie Routine Orders/Code Status Code Status: Full Code Wound(s) RIGHT POSTERIOR HIP: Wound Type: Surgical Incision Dressing Change: Dry Sterile Dressing Suggestions for Active Care Change Position every (hours): 2 Hours to sit in a chair: 3 Times a day to sit in chair: 3 Therapies Weight Bearing: Weight bearing as tolerated Extremity Affected:: Bilateral Lower Physical Therapy: JENI PROTOCOL, POSTERIOR PRECAOUTIONS, NO ACTIVE ABDUCTION Occupational Therapy: JENI PROTOCOL, POSTERIOR PRECAOUTIONS, NO ACTIVE ABDUCTION Problem/Diagnosis (1) Status post right hip replacement: Status: Acute Code(s): Z96.641 - Presence of right artificial hip joint Plan TOTAL HIP REHAB Allergies/Procedures Done in Hospital Allergies No Known Allergies Allergy (Verified 09/27/22 09:11) Type of Care/Length of Stay Estimated LOS: Convalescent Care Less Than 30 days Type of Care Needed: Skilled Rehab Potential: Good Prognosis: Good Additional Orders/Day of Discharge H&P will serve as current which was dated: 09/11/22 Day of Discharge: 10/03/22 Dietary and Speech Recommendations Dietitian Recommendations/Changes: Ensure with meals Follow Up Care Please Follow Up With: Rohan Serra PA-C When: October 12, 2022 at 4 PM at [facility] [place] Discharge Plan Admission Admit Date/Time: 09/27/22 07:34 Primary Reason for Your Visit: Right hip posttraumatic osteoarthritis Attending Provider: Matthew Wisdom Primary Care Provider: [facility],[place] Consulting Providers: Enoch Crews ; Margaux Castillo Discharge Orders/Prescriptions Prescriptions: New sennosides-docusate sodium [Stool Softener-Stimulant Laxat] 8.6-50 mg Tablet 2 tab PO BID Qty: 0 0RF acetaminophen 500 mg Tablet 1,000 mg PO Q8 Qty: 0 0RF meloxicam 7.5 mg Tablet 7.5 mg PO BID Qty: 0 0RF famotidine 20 mg Tablet 20 mg PO DAILY Qty: 0 0RF doxycycline monohydrate 100 mg Capsule 100 mg PO BID Qty: 0 0RF aspirin 81 mg Tablet,Chewable 81 mg PO BIDCM Qty: 0 0RF oxycodone 5 mg Tablet 5 - 10 mg PO Q4H PRN PRN (Reason: Pain Score 4-10) 5 Days Qty: 60 0RF Ensure Surgery 0.08-1.4 gram-kcal/mL Liquid 237 ml PO TIDCM Qty: 0 0RF Continued metformin 1,000 MG tablet 1,000 mg PO BID Hold Instructions: Resume on 11/17/21. cholecalciferol (vitamin D3) 2,000 UNIT capsule 2,000 unit PO DAILY insulin glargine 100 UNITS/ML insulin pen 54 units subcut BREAKFAST insulin lispro 100 unit/mL Insulin Pen 15 unit SUBCUT TID Ozempic 0.25 mg or 0.5 mg(2 mg/1.5 mL) Pen Injector 1 mg SUBCUT MO carvedilol 25 mg Tablet 25 mg PO BID Rx Instructions: must administer with a meal/food losartan 100 mg Tablet 100 mg PO DAILY insulin aspart U-100 [Novolog Flexpen U-100 Insulin] 100 unit/mL (3 mL) Insulin Pen 15 unit SUBCUT TID rosuvastatin 40 mg Tablet 40 mg PO QHS Held aspirin 81 MG tablet 81 mg PO DAILY@0800 Hold Instructions: Resume on 10/25/22. Referrals / Follow Up: Rohan Serra PA-C [Med Staff - Adv Practice Prof] - 10/12/22 4:00 pm [facility],[place] [Primary Care Provider] - Disposition Disposition (needs filled in before D/C Order can be placed): [facility]
--- NOTE | 2022-09-29 12:55 | PCM.DC ---
Discharge Instructions Diet Discharge Diet: No restrictions Activity Discharge Activity: May Not Drive (while taking narcotic pain medications.) May shower in (days): 3 (only if incision is dry and without drainage. Do NOT soak/submerge in tub/pool/jj/stream/hot tub.) May resume sexual activity in: 6-8 weeks Ice area for (Minutes): 20 Weight Bearing Status: Weight bearing as tolerated Lifting Restrictions: No active abduction Additional Activity Instructions:: Wear elastic stockings for 2 weeks. DO NOT use alcohol with narcotic pain medication. DO NOT make important decisions while taking narcotic medication. If you have problems with taking your medication (rash, itching, nausea, etc.) call the office at once. Dressing / Incision Call your doctor if your incision/area has: Increased Pain/ Swelling, Increased Redness and Foul Smelling Discharge Call your doctor if you observe: Fever of 101 or Higher Remove Dressing in: 3 days Additional Dressing/Incision Instructions:: Remove dressing on postoperative day 5, if incision is clean dry and intact may leave the wound open to air and continue showering. If there is continued drainage continue daily dry dressing changes and keep incision clean dry and intact until there is no drainage. Follow Up Care Please Follow Up With: Rohan Serra PA-C When: October 12, 2022 at 4 PM Test Results: Test results from this visit will be discussed in further detail at your follow-up appointment, if applicable. Discharge Plan Admission Admit Date/Time: 09/27/22 07:34 Primary Reason for Your Visit: Right hip posttraumatic osteoarthritis Attending Provider: Matthew Wisdom Primary Care Provider: [facility] Consulting Providers: Enoch Crews ; Brie Chavez Discharge Orders/Prescriptions Prescriptions: New sennosides-docusate sodium [Stool Softener-Stimulant Laxat] 8.6-50 mg Tablet 2 tab PO BID Qty: 0 0RF acetaminophen 500 mg Tablet 1,000 mg PO Q8 Qty: 0 0RF meloxicam 7.5 mg Tablet 7.5 mg PO BID Qty: 0 0RF famotidine 20 mg Tablet 20 mg PO DAILY Qty: 0 0RF doxycycline monohydrate 100 mg Capsule 100 mg PO BID Qty: 0 0RF aspirin 81 mg Tablet,Chewable 81 mg PO BIDCM Qty: 0 0RF oxycodone 5 mg Tablet 5 - 10 mg PO Q4H PRN PRN (Reason: Pain Score 4-10) 5 Days Qty: 60 0RF Ensure Surgery 0.08-1.4 gram-kcal/mL Liquid 237 ml PO TIDCM Qty: 0 0RF Continued metformin 1,000 MG tablet 1,000 mg PO BID Hold Instructions: Resume on 11/17/21. cholecalciferol (vitamin D3) 2,000 UNIT capsule 2,000 unit PO DAILY insulin glargine 100 UNITS/ML insulin pen 54 units subcut BREAKFAST insulin lispro 100 unit/mL Insulin Pen 15 unit SUBCUT TID Ozempic 0.25 mg or 0.5 mg(2 mg/1.5 mL) Pen Injector 1 mg SUBCUT MO carvedilol 25 mg Tablet 25 mg PO BID Rx Instructions: must administer with a meal/food losartan 100 mg Tablet 100 mg PO DAILY insulin aspart U-100 [Novolog Flexpen U-100 Insulin] 100 unit/mL (3 mL) Insulin Pen 15 unit SUBCUT TID rosuvastatin 40 mg Tablet 40 mg PO QHS Held aspirin 81 MG tablet 81 mg PO DAILY@0800 Hold Instructions: Resume on 10/25/22. Referrals / Follow Up: Rohan Serra PA-C [Med Staff - Adv Practice Prof] - 10/12/22 4:[facility] - Disposition Disposition (needs filled in before D/C Order can be placed): [facility]
--- NOTE | 2022-09-29 15:11 | PN.HOSP_ITS ---
Subjective Subjective Follow-up on postop medical management: Patient was seen and examined.? No acute events overnight. Awaiting discharge planning. Denied any fever or chills or chest pain or dizziness or palpitation.? Objective Data Objective Data Vital Signs: Vital Signs Temp Pulse Resp BP Pulse Ox O2 Del Method O2 Flow Rate 98.6 F 88 15 106/54 L 97 Room Air 4 09/29/22 09:00 09/29/22 09:00 09/29/22 09:00 09/29/22 09:00 09/29/22 09:00 09/29/22 09:00 09/29/22 03:01 Oxygen Flow Rate (L/min) 4 Oxygen Delivery Method Room Air Weight: 106 kg Body Mass Index (BMI) 30.8 Intake & Output: Intake and Output for Last 24 Hours 09/27/22 09/28/22 09/29/22 23:59 23:59 23:59 Intake Total 5827.75 / 6327.75 2510 / 2510 Output Total 1225 / 1450 1125 / 1125 Balance 5827.75 / 6327.75 1285 / 1060 -1125 / -1125 Lab / Micro Data Result Diagrams: 09/29/22 04:46 09/28/22 04:40 Labs: Laboratory Results - last 24 hr 09/28/22 16:50: POC Glucose 164 H 09/28/22 23:28: POC Glucose 187 H 09/29/22 04:46: WBC 3.8 L, RBC 2.96 L, Hgb 9.0 L, Hct 27.2 L, MCV 91.9, MCH 30.4, MCHC 33.1, RDW Std Deviation 46.9 H, RDW Coeff of Hakeem 14.0, Plt Count 72 L , MPV 10.6 09/29/22 08:57: POC Glucose 189 H 09/29/22 11:35: POC Glucose 193 H Micro: Microbiology 09/18/22 09:42 Swab (Method) Nasal Screen MRSA/MSSA - Final Physical Exam Narrative Physical exam: General: Alert, Oriented x3, Cooperative, No apparent distress HEENT: Atraumatic Oral: Moist Mucosa Neck: Supple Lungs: Clear to auscultation Cardiovascular: HS I+II, regular, no murmurs Abdomen: Bowel Sounds Present, Soft, Non Tender Extremities: No edema, tenderness over the right hip, dressing intact Skin: No rashes, No breakdown Neurological: Grossly intact Psych/Mental Status: Appropriate Assessment & Plan Assessment/Plan (1) Status post right hip replacement: (2) Hypertension: QUALIFIERS: Hypertension type: essential hypertension (3) Diabetes mellitus with diabetic polyneuropathy: PLAN: Plan 1. POD #2 status post conversion of previous hip surgery to robotic assisted total replacement Pain is controlled, continue current pain regimen PT and OT to evaluate and treat Follow-up with orthopedics recommendations 2. Transient hypotension, resolved with fluid boluses 3. Hypertension/hyperlipidemia/history of stroke Continue on blood pressure meds with holding parameters, continue on atorvastatin 3. 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 DVT prophylaxis?Per primary team; aspirin twice daily Charges/Coding Visit Charges Inpatient E&M: 69945 Subs Hosp L2
[2022-09-29 15:25] VITALS: BP 101/69; PULSE 87; RESP 16; TEMP 36.8; O2SAT 97
[2022-09-29 16:50] LABS: Bedside Glucose 190 mg/dL (74-106)
[2022-09-29 20:57] VITALS: BP 111/64; PULSE 94; RESP 18; TEMP 37.5; O2SAT 97
[2022-09-29] MEDS: Atorvastatin Calcium 80 MG Tablet PO (21:04)
[2022-09-29 23:45] LABS: Bedside Glucose 221 mg/dL (74-106)
[2022-09-30 05:50] VITALS: BP 122/64; PULSE 91; RESP 18; TEMP 37; O2SAT 94
[2022-09-30] MEDS: Acetaminophen 500 MG Tablet 1000 MG PO ×3 (07:02→21:05)
[2022-09-30] MEDS: Aspirin 81 MG TAB.CHEW PO ×2 (07:56→16:31)
[2022-09-30] MEDS: Insulin Glargine-YFGN 100 UNIT/ML Pen 54 UNIT SC (07:58)
[2022-09-30] MEDS: Insulin Lispro 100 UNIT/ML INSULN.PEN 10 UNIT SC ×2 (07:58→11:13)
[2022-09-30] MEDS: Carvedilol 25 MG Tablet PO (08:01)
[2022-09-30] MEDS: Senna/Docusate Sodium 1 Tablet 2 TABLET PO ×2 (08:02→21:04)
[2022-09-30] MEDS: Cholecalciferol (VIT D3) 25 MCG TABLET (1,000 UNITS) 50 MCG PO (08:02)
[2022-09-30] MEDS: Losartan Potassium 100 MG Tablet PO (08:03)
[2022-09-30] MEDS: Famotidine 20 MG Tablet PO (08:03)
[2022-09-30] MEDS: Doxycycline 100 MG CAPSULE PO ×2 (08:04→21:05)
[2022-09-30] MEDS: Meloxicam 7.5 MG Tablet PO ×2 (08:04→21:05)
[2022-09-30 08:16] LABS: Bedside Glucose 197 mg/dL (74-106)
[2022-09-30 10:43] VITALS: BP 128/62; PULSE 89; RESP 16; TEMP 36.9; O2SAT 95
--- NOTE | 2022-09-30 11:14 | PN.ORTHO_ITS ---
Subjective Subjective The patient was sitting in bedside chair upon examination. Patient denies any chest pain, shortness of breath, dizziness, lightheadedness, nausea or vomiting, or calf pain. Pain is controlled on medications. No adverse overnight events. Patient states the dizziness/fogginess has resolved as he is no longer taking the oxycodone. Patient is only requiring Tylenol for pain control. He has been tolerating therapy and getting up walking. We are currently waiting on pre-CERT for patient to go to the [facility]. Due to the holiday weekend this may require patient to stay in the hospital until October 03, 2022 waiting on pre-CERT. Patient has no complaints today. Objective Data Objective Data Vital Signs: Vital Signs Temp Pulse Resp BP Pulse Ox O2 Del Method O2 Flow Rate 98.4 F 89 16 128/62 H 95 Room Air 4 09/30/22 10:43 09/30/22 10:43 09/30/22 10:43 09/30/22 10:43 09/30/22 10:43 09/30/22 10:43 09/29/22 03:01 Oxygen Flow Rate (L/min) 4 Oxygen Delivery Method Room Air Weight: 106 kg Body Mass Index (BMI) 30.8 Intake & Output: Intake and Output for Last 24 Hours 09/28/22 09/29/22 09/30/22 23:59 23:59 23:59 Intake Total 2510 / 2510 500 / 500 Output Total 1225 / 1450 3725 / 3725 225 / 225 Balance 1285 / 1060 -3225 / -3225 -225 / -225 Lab / Micro Data Result Diagrams: 09/29/22 04:46 09/28/22 04:40 Labs: Laboratory Results - last 24 hr 09/29/22 11:35: POC Glucose 193 H 09/29/22 16:25: POC Glucose 190 H 09/29/22 20:59: POC Glucose 221 H 09/30/22 07:54: POC Glucose 197 H Micro: Microbiology 09/18/22 09:42 Swab (Method) Nasal Screen MRSA/MSSA - Final Physical Exam Narrative Vital signs stable and afebrile. Blood pressure readings are stable. Patient is asymptomatic SCDs and KATINA hose are in place bilaterally Patient is able to plantarflex and dorsiflex actively. Sensation is intact to light touch to saphenous, sural, superficial and deep peroneal, and tibial distribution. Dressing is clean dry and intact. Negative Homans bilaterally, negative signs and symptoms of DVT. Const alert, oriented x3 and no apparent distress Assessment & Plan Assessment/Plan (1) Status post right hip replacement: PLAN: 1.? S/P conversion of previous right hip surgery to robotic assisted right posterior total hip arthroplasty POD #3 2.? Continue Pain Medications: Tylenol and oxycodone. Since stopping the oxycodone patient has had no further dizziness. He is only requiring Tylenol for pain control 3.? DVT Prophylaxis: Take 81 mg aspirin twice daily for 4 weeks postoperatively for DVT prophylaxis.? Patient denies previous history of DVT or pulmonary em bolism 4.? PT/OT: Weightbearing as tolerated with walker.? No active abduction for 6 weeks postoperatively due to intraoperative greater trochanteric fracture.? We will continue with posterior hip dislocation precautions for 3 months postoperatively 5.? Continue postoperative medical management per medicine 6.? Continue antibiotics postoperatively.? Currently on doxycycline for 2 weeks postoperatively due to high risk nature of the case and previous history of right lower leg cellulitis.? Currently afebrile 7.? Encouraged Incentive Spirometry 8.? Disposition: At this time patient is orthopedically stable. Patient's only reason for continued stay in the hospital is that we are waiting on pre-CERT from insurance for [facility] to go [facility]. He is tolerating therapy. Pain has been well controlled on Tylenol. Patient's dizziness/fogginess has resolved. We will continue to monitor the patient while in the hospital waiting on pre-CERT. Continue with physical therapy with above precautions. Due to the long holiday weekend anticipated patient will likely not be ready for discharge until normal business hours resume next week. He is currently medically stable. I have reviewed the [place] Automated Rx Reporting System (OARRS) report for this patient for refill pattern and other prescriber involvement as part of the appropriate surveillance for the provision of acute and chronic controlled medications.? The report was requested and reviewed on the date of this entry and was considered in the prescribing process.
[2022-09-30 11:35] LABS: Bedside Glucose 261 mg/dL (74-106)
[2022-09-30 12:00] VITALS: BP 118/60; PULSE 85; RESP 18; TEMP 37; O2SAT 96
--- NOTE | 2022-09-30 12:49 | PCM.PN.HOSP ---
Subjective Subjective Reports feeling well today with minimal pain, no other complaints now that he has had a bowel movement this morning. Objective Data Objective Data Vital Signs: Vital Signs Temp Pulse Resp BP Pulse Ox O2 Del Method O2 Flow Rate 98.4 F 89 16 128/62 H 95 Room Air 4 09/30/22 10:43 09/30/22 10:43 09/30/22 10:43 09/30/22 10:43 09/30/22 10:43 09/30/22 10:43 09/29/22 03:01 Oxygen Flow Rate (L/min) 4 Oxygen Delivery Method Room Air Weight: 106 kg Body Mass Index (BMI) 30.8 Intake & Output: Intake and Output for Last 24 Hours 09/28/22 09/29/22 09/30/22 23:59 23:59 23:59 Intake Total 2510 / 2510 500 / 500 Output Total 1225 / 1450 3725 / 3725 225 / 225 Balance 1285 / 1060 -3225 / -3225 -225 / -225 Lab / Micro Data Result Diagrams: 09/29/22 04:46 09/28/22 04:40 Labs: Laboratory Results - last 24 hr 09/29/22 16:25: POC Glucose 190 H 09/29/22 20:59: POC Glucose 221 H 09/30/22 07:54: POC Glucose 197 H 09/30/22 11:10: POC Glucose 261 H Micro: Microbiology 09/18/22 09:42 Swab (Method) Nasal Screen MRSA/MSSA - Final Physical Exam Const alert and no apparent distress Constitutional Narrative: Oriented HEENT normocephalic and head/scalp atraumatic Eyes Eyes Narrative: EOM grossly intact, anicteric Neck supple Resp normal respiratory effort and clear to auscultation bilaterally Cardio regular rate and regular rhythm GI soft to palpation, non-tender and non-distended Extremity Extremity Narrative: No edema appreciated Neuro moves all extremities Neuro Narrative: No overt focal deficits appreciated Psych Psych Narrative: Cooperative Assessment & Plan Assessment/Plan (1) Status post right hip replacement: (2) Hypertension: QUALIFIERS: Hypertension type: essential hypertension (3) Diabetes mellitus with diabetic polyneuropathy: PLAN: Plan 1. POD #3 status post conversion of previous hip surgery to robotic assisted total replacement Pain is controlled, continue current pain regimen PT and OT to evaluate and treat Follow-up with orthopedics recommendations 2. Transient hypotension, resolved with fluid boluses 3. Hypertension/hyperlipidemia/history of stroke Continue on blood pressure meds with holding parameters, continue on atorvastatin 3. 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 DVT prophylaxis?Per primary team; aspirin twice daily Charges/Coding Visit Charges Inpatient E&M: 07484 Subs Hosp L2
[2022-09-30 14:45] VITALS: BP 120/58; PULSE 81; RESP 16; TEMP 36.9; O2SAT 96
[2022-09-30] MEDS: Ensure Surgery 237 ML LIQUID PO (16:31)
[2022-09-30 17:10] LABS: Bedside Glucose 190 mg/dL (74-106)
[2022-09-30] MEDS: Insulin Lispro 100 UNIT/ML INSULN.PEN 15 UNIT SC (17:34)
[2022-09-30] MEDS: Atorvastatin Calcium 80 MG Tablet PO (21:04)
[2022-09-30 21:16] VITALS: BP 105/54; PULSE 87; RESP 18; TEMP 37.5; O2SAT 95
[2022-09-30 21:31] LABS: Bedside Glucose 170 mg/dL (74-106)
[2022-10-01 03:43] VITALS: BP 110/52; PULSE 87; RESP 17; TEMP 37.5; O2SAT 96
[2022-10-01] MEDS: Acetaminophen 500 MG Tablet 1000 MG PO ×3 (05:39→22:30)
[2022-10-01] MEDS: Aspirin 81 MG TAB.CHEW PO ×2 (08:36→17:15)
[2022-10-01] MEDS: Ensure Surgery 237 ML LIQUID PO ×3 (08:37→17:18)
[2022-10-01 09:01] LABS: Bedside Glucose 155 mg/dL (74-106)
[2022-10-01] MEDS: Insulin Lispro 100 UNIT/ML INSULN.PEN 15 UNIT SC ×3 (09:59→17:18)
[2022-10-01] MEDS: Insulin Glargine-YFGN 100 UNIT/ML Pen 54 UNIT SC (09:59)
[2022-10-01] MEDS: Losartan Potassium 100 MG Tablet PO (10:01)
[2022-10-01] MEDS: Doxycycline 100 MG CAPSULE PO ×2 (10:01→22:30)
[2022-10-01] MEDS: Carvedilol 25 MG Tablet PO (10:01)
[2022-10-01] MEDS: Meloxicam 7.5 MG Tablet PO ×2 (10:01→22:32)
[2022-10-01] MEDS: Senna/Docusate Sodium 1 Tablet 2 TABLET PO ×2 (10:02→22:30)
[2022-10-01] MEDS: Famotidine 20 MG Tablet PO (10:02)
[2022-10-01] MEDS: Cholecalciferol (VIT D3) 25 MCG TABLET (1,000 UNITS) 50 MCG PO (10:03)
[2022-10-01 11:12] VITALS: BP 101/64; PULSE 84; RESP 16; TEMP 36.9; O2SAT 95
[2022-10-01 12:55] LABS: Bedside Glucose 195 mg/dL (74-106)
--- NOTE | 2022-10-01 13:37 | PN.HOSP_ITS ---
Subjective Subjective Reports feeling well, pain well controlled, no significant pain when laying still. Eating well, had bowel movement yesterday, not yet today Objective Data Objective Data Vital Signs: Vital Signs Temp Pulse Resp BP Pulse Ox O2 Del Method O2 Flow Rate 98.5 F 84 16 101/64 95 Room Air 4 10/01/22 11:12 10/01/22 11:12 10/01/22 11:12 10/01/22 11:12 10/01/22 11:12 10/01/22 11:12 09/29/22 03:01 Oxygen Flow Rate (L/min) 4 Oxygen Delivery Method Room Air Weight: 106 kg Body Mass Index (BMI) 30.8 Intake & Output: Intake and Output for Last 24 Hours 09/29/22 09/30/22 10/01/22 23:59 23:59 23:59 Intake Total 500 / 500 320 / 320 120 / 120 Output Total 3725 / 3725 1600 / 1600 900 / 900 Balance -3225 / -3225 -1280 / -1280 -780 / -780 Lab / Micro Data Result Diagrams: 09/29/22 04:46 09/28/22 04:40 Labs: Laboratory Results - last 24 hr 09/30/22 16:29: POC Glucose 190 H 09/30/22 21:11: POC Glucose 170 H 10/01/22 08:31: POC Glucose 155 H 10/01/22 12:18: POC Glucose 195 H Micro: Microbiology 09/18/22 09:42 Swab (Method) Nasal Screen MRSA/MSSA - Final Physical Exam Const alert and no apparent distress Constitutional Narrative: Oriented HEENT normocephalic and head/scalp atraumatic Eyes Eyes Narrative: EOM grossly intact, anicteric Neck supple Resp normal respiratory effort and clear to auscultation bilaterally Cardio regular rate and regular rhythm GI soft to palpation, non-tender and non-distended Extremity Extremity Narrative: No edema appreciated Neuro moves all extremities Neuro Narrative: No overt focal deficits appreciated Psych Psych Narrative: Cooperative Assessment & Plan Assessment/Plan (1) Status post right hip replacement: (2) Hypertension: QUALIFIERS: Hypertension type: essential hypertension (3) Diabetes mellitus with diabetic polyneuropathy: PLAN: Plan 1. POD #4 status post conversion of previous hip surgery to robotic assisted t otal replacement Pain is controlled, continue current pain regimen PT and OT to evaluate and treat Follow-up with orthopedics recommendations 2. Transient hypotension, resolved with fluid boluses 10/01: Did trend slightly but is on Coreg 25 twice daily and losartan 100, will decrease dose of losartan and monitor 3. Hypertension/hyperlipidemia/history of stroke Continue on blood pressure meds with holding parameters, continue on atorvastatin 3. 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 DVT prophylaxis?Per primary team; aspirin twice daily Charges/Coding Visit Charges Inpatient E&M: 01323 Subs Hosp L2
--- NOTE | 2022-10-01 13:37 | PCM.PN.ORT ---
Subjective Subjective The patient was sitting in bedside chair upon examination. Patient states he just finished physical therapy and did well. He is sore from doing therapy. Patient denies any chest pain, shortness of breath, dizziness, lightheadedness, nausea or vomiting, or calf pain. Pain is controlled on medications and only requiring Tylenol. No adverse overnight events. We are still waiting approval for pre-CERT from insurance for discharge to long-term facility. Patient does report having a bowel movement yesterday. Objective Data Objective Data Vital Signs: Vital Signs Temp Pulse Resp BP Pulse Ox O2 Del Method O2 Flow Rate 98.5 F 84 16 101/64 95 Room Air 4 10/01/22 11:12 10/01/22 11:12 10/01/22 11:12 10/01/22 11:12 10/01/22 11:12 10/01/22 11:12 09/29/22 03:01 Oxygen Flow Rate (L/min) 4 Oxygen Delivery Method Room Air Weight: 106 kg Body Mass Index (BMI) 30.8 Intake & Output: Intake and Output for Last 24 Hours 09/29/22 09/30/22 10/01/22 23:59 23:59 23:59 Intake Total 500 / 500 320 / 320 120 / 120 Output Total 3725 / 3725 1600 / 1600 900 / 900 Balance -3225 / -3225 -1280 / -1280 -780 / -780 Lab / Micro Data Result Diagrams: 09/29/22 04:46 09/28/22 04:40 Labs: Laboratory Results - last 24 hr 09/30/22 16:29: POC Glucose 190 H 09/30/22 21:11: POC Glucose 170 H 10/01/22 08:31: POC Glucose 155 H 10/01/22 12:18: POC Glucose 195 H Micro: Microbiology 09/18/22 09:42 Swab (Method) Nasal Screen MRSA/MSSA - Final Physical Exam Narrative Vital signs stable and afebrile. SCDs and KATINA hose are in place bilaterally Right thigh is soft and supple Patient is able to plantarflex and dorsiflex actively. Sensation is intact to light touch to saphenous, sural, superficial and deep peroneal, and tibial distribution. Dressing is clean dry and intact. Negative Homans bilaterally, negative signs and symptoms of DVT. Const alert, oriented x3 and no apparent distress Assessment & Plan Assessment/Plan (1) Status post right hip replacement: PLAN: 1.? S/P conversion of previous right hip surgery to robotic assisted right posterior total hip arthroplasty POD #4 2.? Continue Pain Medications: Tylenol and oxycodone. Only requiring Tylenol for pain control. Upon discharge may switch over to tramadol as needed for breakthrough pain. 3.? DVT Prophylaxis: Take 81 mg aspirin twice daily for 4 weeks postoperatively for DVT prophylaxis.? Patient denies previous history of DVT or pulmonary embolism 4.? PT/OT: Weightbearing as tolerated with walker.? No active abduction for 6 weeks postoperatively due to intraoperative greater trochanteric fracture.? We will continue with posterior hip dislocation precautions for 3 months postoperatively. Patient has been tolerating therapy well. 5.? Continue postoperative medical management per medicine 6.? Continue antibiotics postoperatively.? Currently on doxycycline for 2 weeks postoperatively due to high risk nature of the case and previous history of right lower leg cellulitis.? Currently afebrile 7.? Encouraged Incentive Spirometry 8.? Disposition: No change from discharge standpoint. At this time patient is orthopedically stable. Patient's only reason for continued stay in the hospital is that we are waiting on pre-CERT from insurance for [facility] to [facility]. He is tolerating therapy. Pain has been well controlled on Tylenol. We will continue to monitor the patient while in the hospital waiting on pre-CERT. Continue with physical therapy with above precautions. Due to the long holiday weekend anticipated patient will likely not be ready for discharge until normal business hours resume next week. He is currently medically stable. I have reviewed the [place] Automated Rx Reporting System (OARRS) report for this patient for refill pattern and other prescriber involvement as part of the appropriate surveillance for the provision of acute and chronic controlled medications.? The report was requested and reviewed on the date of this entry and was considered in the prescribing process.
[2022-10-01 14:56] VITALS: BP 97/60; PULSE 85; RESP 16; TEMP 36.9; O2SAT 96
[2022-10-01 16:41] LABS: Bedside Glucose 191 mg/dL (74-106)
[2022-10-01 18:27] LABS: Absolute Lymphocyte Count 0.69 X10^3/uL (0.83-4.51); Absolute Neutrophil Count 1.9 X10^3/uL (2.0-7.7); Basophil# 0.02 X10^3/uL; Basophil% 0.7 % (0-1); Eosinophil# 0.08 X10^3/uL; Eosinophils% 2.7 % (0-5); Hematocrit 24.2 % (40-54); Hemoglobin 8.2 g/dL (13.0-16.5); Lymphocyte # 0.69 X10^3/ul (0.83-4.51); Lymphocyte % 22.9 % (19-41); Mean Corp Hgb Conc 33.9 g/dL (32-36); Mean Corpuscular Hgb 31.3 pg (27.0-32.0); Mean Corpuscular Volume 92.4 fL (80-94); Mean Platelet Vol. 9.8 fl (6.2-12.0); Monocyte# 0.27 X10^3/uL; NRBC Flagged by Analyzer 0 % (0-5); Neutrophil # 1.94 X10^3/uL (2.7-7.7); Neutrophil % 64.4 % (47-70); POSITIVE COUNT YES; Platelet Count 93 K/mm3 (150-450); RBC Distribution Width CV 14.1 % (11.6-14.6); RBC Distribution Width SD 47.3 fl (35.1-43.9); Red Blood Count 2.62 M/mm3 (4.6-6.2)
[2022-10-01 18:39] LABS: Anion Gap 4 (5-15); BUN 31 mg/dL (7-18); BUN/Creat Ratio 27.4 RATIO (10-20); Calcium,Total 8.7 mg/dL (8.5-10.1); Chloride 106 mmol/L (98-107); Creatinine, Serum 1.13 mg/dL (0.70-1.30); EST Glomerular Filtration Rate 69 mL/min (>60); Est Glom Filt Rate - Afr Amer 83 mL/min (>60); Estimated Creatinine Clearance 71.69 ml/min; Glucose 170 mg/dL (74-106); Potassium 4.4 mmol/L (3.5-5.1); Sodium Level 138 mmol/L (136-145)
[2022-10-01 22:24] VITALS: BP 104/56; PULSE 83; RESP 18; TEMP 36.6; O2SAT 96
[2022-10-01] MEDS: Atorvastatin Calcium 80 MG Tablet PO (22:30)
[2022-10-01] MEDS: 0.9% Saline Lock 10 ML Syringe IV (22:33)
[2022-10-02 00:01] LABS: Bedside Glucose 178 mg/dL (74-106)
[2022-10-02 03:29] VITALS: BP 122/53; PULSE 87; RESP 20; TEMP 37; O2SAT 97
[2022-10-02 03:33] VITALS: BP 122/53; PULSE 87; RESP 20; TEMP 37; O2SAT 97
[2022-10-02 06:28] LABS: Absolute Lymphocyte Count 0.64 X10^3/uL (0.83-4.51); Absolute Neutrophil Count 2.3 X10^3/uL (2.0-7.7); Basophil# 0.02 X10^3/uL; Basophil% 0.6 % (0-1); Eosinophil# 0.12 X10^3/uL; Eosinophils% 3.5 % (0-5); Hematocrit 24.9 % (40-54); Hemoglobin 8.2 g/dL (13.0-16.5); Lymphocyte # 0.64 X10^3/ul (0.83-4.51); Lymphocyte % 18.6 % (19-41); Mean Corp Hgb Conc 32.9 g/dL (32-36); Mean Corpuscular Hgb 31.1 pg (27.0-32.0); Mean Corpuscular Volume 94.3 fL (80-94); Mean Platelet Vol. 10.4 fl (6.2-12.0); Monocyte# 0.35 X10^3/uL; Monocyte% 10.1 % (0-10); NRBC Flagged by Analyzer 0 % (0-5); Neutrophil # 2.31 X10^3/uL (2.7-7.7); Neutrophil % 66.9 % (47-70); POSITIVE COUNT YES; Platelet Count 94 K/mm3 (150-450); RBC Distribution Width CV 13.9 % (11.6-14.6); RBC Distribution Width SD 47.3 fl (35.1-43.9); Red Blood Count 2.64 M/mm3 (4.6-6.2); White Blood Count 3.5 K/mm3 (4.4-11.0)
[2022-10-02] MEDS: Acetaminophen 500 MG Tablet 1000 MG PO ×3 (06:28→22:29)
[2022-10-02 06:57] LABS: Anion Gap 5 (5-15); BUN 31 mg/dL (7-18); BUN/Creat Ratio 28.7 RATIO (10-20); Calcium,Total 8.8 mg/dL (8.5-10.1); Chloride 106 mmol/L (98-107); Creatinine, Serum 1.08 mg/dL (0.70-1.30); EST Glomerular Filtration Rate 72 mL/min (>60); Est Glom Filt Rate - Afr Amer 88 mL/min (>60); Estimated Creatinine Clearance 75.01 ml/min; Glucose 200 mg/dL (74-106); Potassium 4.5 mmol/L (3.5-5.1); Sodium Level 137 mmol/L (136-145)
[2022-10-02] MEDS: Insulin Glargine-YFGN 100 UNIT/ML Pen 54 UNIT SC (07:54)
[2022-10-02] MEDS: Insulin Lispro 100 UNIT/ML INSULN.PEN 15 UNIT SC ×3 (07:55→16:24)
[2022-10-02] MEDS: Ensure Surgery 237 ML LIQUID PO ×3 (07:58→16:24)
[2022-10-02] MEDS: Aspirin 81 MG TAB.CHEW PO ×2 (08:00→16:24)
[2022-10-02] MEDS: Famotidine 20 MG Tablet PO (08:02)
[2022-10-02] MEDS: Meloxicam 7.5 MG Tablet PO ×2 (08:02→22:30)
[2022-10-02] MEDS: Doxycycline 100 MG CAPSULE PO ×2 (08:02→22:30)
[2022-10-02] MEDS: Senna/Docusate Sodium 1 Tablet 2 TABLET PO ×2 (08:03→22:29)
[2022-10-02] MEDS: Cholecalciferol (VIT D3) 25 MCG TABLET (1,000 UNITS) 50 MCG PO (08:03)
[2022-10-02 08:25] LABS: Bedside Glucose 193 mg/dL (74-106)
[2022-10-02 09:30] VITALS: BP 108/60; PULSE 81; RESP 18; TEMP 37.2; O2SAT 94
[2022-10-02 10:00] VITALS: BP 108/60; PULSE 81; RESP 18; TEMP 37.2; O2SAT 98
--- NOTE | 2022-10-02 11:19 | PN.ORTHO_ITS ---
Objective Data Objective Data Vital Signs: Vital Signs Temp Pulse Resp BP Pulse Ox O2 Del Method O2 Flow Rate 98.9 F 81 18 108/60 98 Room Air 4 10/02/22 10:00 10/02/22 10:00 10/02/22 10:00 10/02/22 10:00 10/02/22 10:00 10/02/22 10:00 09/29/22 03:01 Oxygen Flow Rate (L/min) 4 Oxygen Delivery Method Room Air Weight: 233 lb 11.04 oz Body Mass Index (BMI) 30.8 Intake & Output: Intake and Output for Last 24 Hours 09/30/22 10/01/22 10/02/22 23:59 23:59 23:59 Intake Total 320 / 320 120 / 120 Output Total 1600 / 1600 2550 / 2550 Balance -1280 / -1280 -2430 / -2430 Lab / Micro Data Result Diagrams: 10/02/22 05:05 10/02/22 05:05 Labs: Laboratory Results - last 24 hr 10/01/22 12:18: POC Glucose 195 H 10/01/22 16:21: POC Glucose 191 H 10/01/22 18:02: WBC 3.0 L, RBC 2.62 L, Hgb 8.2 L, Hct 24.2 L, MCV 92.4, MCH 31.3, MCHC 33.9, RDW Std Deviation 47.3 H, RDW Coeff of Hakeem 14.1, Plt Count 93 L , MPV 9.8, Immature Gran % (Auto) 0.300, Neut % (Auto) 64.4, Lymph % (Auto) 22.9, [place] % (Auto) 9.0, Eos % (Auto) 2.7, Baso % (Auto) 0.7, Absolute Neuts (auto) 1.9 L, Absolute Lymphs (auto) 0.69 L, Nucleated RBC % 0 10/01/22 18:02: Sodium 138, Potassium 4.4, Chloride 106, Carbon Dioxide 28.0, Anion Gap 4 L, BUN 31 H, Creatinine 1.13, Estim Creat Clear Calc 71.69, Est GFR (MDRD) Af Amer 83, Est GFR (MDRD) Non-Af 69, BUN/Creatinine Ratio 27.4 H, Glucose 170 H, Calcium 8.7 10/01/22 22:36: POC Glucose 178 H 10/02/22 05:05: WBC 3.5 L, RBC 2.64 L, Hgb 8.2 L, Hct 24.9 L, MCV 94.3 H, MCH 31.1, MCHC 32.9, RDW Std Deviation 47.3 H, RDW Coeff of Hakeem 13.9, Plt Count 94 L , MPV 10.4, Immature Gran % (Auto) 0.300, Neut % (Auto) 66.9, Lymph % (Auto) 18.6 L, [place] % (Auto) 10.1 H, Eos % (Auto) 3.5, Baso % (Auto) 0.6, Absolute Ne uts (auto) 2.3, Absolute Lymphs (auto) 0.64 L, Nucleated RBC % 0 10/02/22 05:05: Sodium 137, Potassium 4.5, Chloride 106, Carbon Dioxide 26.0, Anion Gap 5, BUN 31 H, Creatinine 1.08, Estim Creat Clear Calc 75.01, Est GFR (MDRD) Af Amer 88, Est GFR (MDRD) Non-Af 72, BUN/Creatinine Ratio 28.7 H, G lucose 200 H, Calcium 8.8 10/02/22 07:51: POC Glucose 193 H Micro: Microbiology 09/18/22 09:42 Swab (Method) Nasal Screen MRSA/MSSA - Final Assessment & Plan Assessment/Plan (1) Status post right hip replacement: PLAN: 1.? S/P conversion of previous right hip surgery to robotic assisted right posterior total hip arthroplasty POD #5 2.? Continue Pain Medications: Tylenol and oxycodone.? Only requiring Tylenol for pain control.? Upon discharge may switch over to tramadol as needed for breakthrough pain. 3.? DVT Prophylaxis: Take 81 mg aspirin twice daily for 4 weeks postoperatively for DVT prophylaxis.? Patient denies previous history of DVT or pulmonary embolism 4.? PT/OT: Weightbearing as tolerated with walker.? No active abduction for 6 weeks postoperatively due to intraoperative greater trochanteric fracture.? We will continue with posterior hip dislocation precautions for 3 months postoperatively.? Patient has been tolerating therapy well. 5.? Continue postoperative medical management per medicine 6.? Continue antibiotics postoperatively.? Currently on doxycycline for 2 weeks postoperatively due to high risk nature of the case and previous history of right lower leg cellulitis.? Currently afebrile 7.? Encouraged Incentive Spirometry 8.? Disposition: Patient has been accepted to the [facility] in [place] longterm [facility] upon obtaining appropriate precertification.? At this time patient is orthopedically and medically stable.? Patient's only reason for continued stay in the hospital is that we are waiting on pre-CERT from insurance for patient to go to the [facility].? He is tolerating therapy.? Pain has been well controlled on Tylenol.? We will continue to monitor the patient while in the hospital waiting on pre-CERT.? Continue with physical therapy with above precautions.? Due to the long holiday weekend anticipated patient will likely not be ready for discharge until normal business hours resume next week.? [facility] Office:
[2022-10-02 12:00] LABS: Bedside Glucose 250 mg/dL (74-106)
--- NOTE | 2022-10-02 12:09 | PCM.PN.HOSP ---
Subjective Subjective Feeling well, no complaints Objective Data Objective Data Vital Signs: Vital Signs Temp Pulse Resp BP Pulse Ox O2 Del Method O2 Flow Rate 98.9 F 81 18 108/60 98 Room Air 4 10/02/22 10:00 10/02/22 10:00 10/02/22 10:00 10/02/22 10:00 10/02/22 10:00 10/02/22 10:00 09/29/22 03:01 Oxygen Flow Rate (L/min) 4 Oxygen Delivery Method Room Air Weight: 106 kg Body Mass Index (BMI) 30.8 Intake & Output: Intake and Output for Last 24 Hours 09/30/22 10/01/22 10/02/22 23:59 23:59 23:59 Intake Total 320 / 320 120 / 120 Output Total 1600 / 1600 2550 / 2550 500 / 500 Balance -1280 / -1280 -2430 / -2430 -500 / -500 Lab / Micro Data Result Diagrams: 10/02/22 05:05 10/02/22 05:05 Labs: Laboratory Results - last 24 hr 10/01/22 12:18: POC Glucose 195 H 10/01/22 16:21: POC Glucose 191 H 10/01/22 18:02: WBC 3.0 L, RBC 2.62 L, Hgb 8.2 L, Hct 24.2 L, MCV 92.4, MCH 31.3, MCHC 33.9, RDW Std Deviation 47.3 H, RDW Coeff of Hakeem 14.1, Plt Count 93 L, MPV 9.8, Immature Gran % (Auto) 0.300, Neut % (Auto) 64.4, Lymph % (Auto) 22.9, [place] % (Auto) 9.0, Eos % (Auto) 2.7, Baso % (Auto) 0.7, Absolute Neuts (auto) 1.9 L, Absolute Lymphs (auto) 0.69 L, Nucleated RBC % 0 10/01/22 18:02: Sodium 138, Potassium 4.4, Chloride 106, Carbon Dioxide 28.0, Anion Gap 4 L, BUN 31 H, Creatinine 1.13, Estim Creat Clear Calc 71.69, Est GFR (MDRD) Af Amer 83, Est GFR (MDRD) Non-Af 69, BUN/Creatinine Ratio 27.4 H, Glucose 170 H, Calcium 8.7 10/01/22 22:36: POC Glucose 178 H 10/02/22 05:05: WBC 3.5 L, RBC 2.64 L, Hgb 8.2 L, Hct 24.9 L, MCV 94.3 H, MCH 31.1, MCHC 32.9, RDW Std Deviation 47.3 H, RDW Coeff of Hakeem 13.9, Plt Count 94 L, MPV 10.4, Immature Gran % (Auto) 0.300, Neut % (Auto) 66.9, Lymph % (Auto) 18.6 L, [place] % (Auto) 10.1 H, Eos % (Auto) 3.5, Baso % (Auto) 0.6, Absolute Neuts (auto) 2.3, Absolute Lymphs (auto) 0.64 L, Nucleated RBC % 0 10/02/22 05:05: Sodium 137, Potassium 4.5, Chloride 106, Carbon Dioxide 26.0, Anion Gap 5, BUN 31 H, Creatinine 1.08, Estim Creat Clear Calc 75.01, Est GFR (MDRD) Af Amer 88, Est GFR (MDRD) Non-Af 72, BUN/Creatinine Ratio 28.7 H, Glucose 200 H, Calcium 8.8 10/02/22 07:51: POC Glucose 193 H 10/02/22 11:33: POC Glucose 250 H Micro: Microbiology 09/18/22 09:42 Swab (Method) Nasal Screen MRSA/MSSA - Final Physical Exam Const alert and no apparent distress Constitutional Narrative: Oriented HEENT normocephalic and head/scalp atraumatic Eyes Eyes Narrative: EOM grossly intact, anicteric Neck supple Resp normal respiratory effort and clear to auscultation bilaterally Cardio regular rate and regular rhythm GI soft to palpation, non-tender and non-distended Extremity Extremity Narrative: No edema appreciated Neuro moves all extremities Neuro Narrative: No overt focal deficits appreciated Psych Psych Narrative: Cooperative Assessment & Plan Assessment/Plan (1) Status post right hip replacement: (2) Hypertension: QUALIFIERS: Hypertension type: essential hypertension (3) Diabetes mellitus with diabetic polyneuropathy: PLAN: Plan 1. POD #5 status post conversion of previous hip surgery to robotic assisted total replacement Pain is controlled, continue current pain regimen PT and OT to evaluate and treat Follow-up with orthopedics recommendations On doxycycline for 2 weeks per Ortho due to history of cellulitis 2. Transient hypotension, resolved with fluid boluses 10/01: Did trend slightly but is on Coreg 25 twice daily and losartan 100, will decrease dose of losartan and monitor 3. Hypertension/hyperlipidemia/history of stroke Continue on blood pressure meds with holding parameters, continue on atorvastatin 10/02: Stable 3. 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 DVT prophylaxis?Per primary team; aspirin twice daily Charges/Coding Visit Charges Inpatient E&M: 39883 Subs Hosp L1
[2022-10-02 15:22] VITALS: BP 115/64; PULSE 78; RESP 17; TEMP 37.1; O2SAT 96
[2022-10-02 16:50] LABS: Bedside Glucose 184 mg/dL (74-106)
[2022-10-02 22:16] VITALS: BP 113/62; PULSE 82; RESP 18; TEMP 37; O2SAT 94
[2022-10-02] MEDS: Atorvastatin Calcium 80 MG Tablet PO (22:29)
[2022-10-02] MEDS: 0.9% Saline Lock 10 ML Syringe IV (22:30)
[2022-10-02] MEDS: Carvedilol 12.5 MG Tablet PO (22:31)
[2022-10-02 23:11] LABS: Bedside Glucose 158 mg/dL (74-106)
[2022-10-03 05:29] VITALS: BP 115/59; PULSE 77; PULSE 78; RESP 16; RESP 18; TEMP 36.6; O2SAT 95
[2022-10-03] MEDS: Acetaminophen 500 MG Tablet 1000 MG PO ×2 (05:33→15:03)
--- NOTE | 2022-10-03 06:48 | PN.ORTHO_ITS ---
Subjective Subjective The patient was sitting in bed upon examination sleeping. Patient denies any chest pain, shortness of breath, dizziness, lightheadedness, nausea or vomiting, or calf pain. Pain is controlled on medications. No adverse overnight events. Patient has no complaints today. We are continuing to wait on pre-CERT for patient to go [facility]. Patient has been tolerating therapy while in the hospital and is only been taking Tylenol for pain control. Objective Data Objective Data Vital Signs: Vital Signs Temp Pulse Resp BP Pulse Ox O2 Del Method O2 Flow Rate 97.9 F 78 18 115/59 L 95 Room Air 4 10/03/22 05:29 10/03/22 05:29 10/03/22 05:29 10/03/22 05:29 10/03/22 05:29 10/03/22 05:29 09/29/22 03:01 Oxygen Flow Rate (L/min) 4 Oxygen Delivery Method Room Air Weight: 106 kg Body Mass Index (BMI) 30.8 Intake & Output: Intake and Output for Last 24 Hours 10/01/22 10/02/22 10/03/22 23:59 23:59 23:59 Intake Total 120 / 120 Output Total 2550 / 2550 1700 / 1700 700 / 700 Balance -2430 / -2430 -1700 / -1700 -700 / -700 Lab / Micro Data Result Diagrams: 10/02/22 05:05 10/02/22 05:05 Labs: Laboratory Results - last 24 hr 10/02/22 05:05: Sodium 137, Potassium 4.5, Chloride 106, Carbon Dioxide 26.0, Anion Gap 5, BUN 31 H, Creatinine 1.08, Estim Creat Clear Calc 75.01, Est GFR (MDRD) Af Amer 88, Est GFR (MDRD) Non-Af 72, BUN/Creatinine Ratio 28.7 H, Glucose 200 H, Calcium 8.8 10/02/22 07:51: POC Glucose 193 H 10/02/22 11:33: POC Glucose 250 H 10/02/22 16:22: POC Glucose 184 H 10/02/22 22:21: POC Glucose 158 H Micro: Microbiology 09/18/22 09:42 Swab (Method) Nasal Screen MRSA/MSSA - Final Physical Exam Narrative Vital signs stable and afebrile. SCDs and KATINA hose are in place bilaterally Right hip is soft and supple Patient is able to plantarflex and dorsiflex actively. Sensation is intact to light touch to saphenous, sural, superficial and deep peroneal, and tibial distribution. Dressing is clean dry and intact. Negative Homans bilaterally, negative signs and symptoms of DVT. Const alert, oriented x3 and no apparent distress Assessment & Plan Assessment/Plan (1) Status post right hip replacement: PLAN: 1.? S/P conversion of previous right hip surgery to robotic assisted right posterior total hip arthroplasty POD #6 2.? Continue Pain Medications: Tylenol and oxycodone.? Only requiring Tylenol for pain control.? Upon discharge may switch over to tramadol as needed for breakthrough pain. 3.? DVT Prophylaxis: Take 81 mg aspirin twice daily for 4 weeks postoperatively for DVT prophylaxis.? Patient denies previous history of DVT or pulmonary embolism 4.? PT/OT: Weightbearing as tolerated with walker.? No active abduction for 6 weeks postoperatively due to intraoperative greater trochanteric fracture.? We will continue with posterior hip dislocation precautions for 3 months postoperatively.? Patient has been tolerating therapy well. 5.? Continue postoperative medical management per medicine 6.? Continue antibiotics postoperatively.? Currently on doxycycline for 2 weeks postoperatively due to high risk nature of the case and previous history of right lower leg cellulitis.? Currently afebrile 7.? Encouraged Incentive Spirometry 8.? Disposition: Patient has been accepted to the [facility] upon obtaining appropriate precertification.? At this time patient is orthopedically and medically stable.? Patient's only reason for continued stay in the hospital is that we are waiting on pre-CERT from insurance for patient to go to the counts include [facility] beds at the [facility].? He is tolerating therapy.? Pain has been well controlled on Tylenol.? We will continue to monitor the patient while in the hospital waiting on pre-CERT.? Continue with physical therapy with above precautions.? Due to the long holiday weekend anticipated patient will likely not be ready for discharge until normal business hours resume this week. Dressing will be removed at assisted [facility] on October 04, 2022. This was placed in discharge instructions. Patient has continued to do well over the weekend with no complaints today. Discussed case with the charge nurse and they will contact us today if we get pre-CERT so we can do verbal discharge order. This dictation was created using voice recognition software.? Phonetic and/or grammatical errors may exist.
--- NOTE | 2022-10-03 07:42 | PN.HOSP_ITS ---
Subjective Subjective Reports feeling fairly well today, Tylenol for pain control. Continue to await SNF for rehab. Objective Data Objective Data Vital Signs: Vital Signs Temp Pulse Resp BP Pulse Ox O2 Del Method O2 Flow Rate 97.9 F 78 18 115/59 L 95 Room Air 4 10/03/22 05:29 10/03/22 05:29 10/03/22 05:29 10/03/22 05:29 10/03/22 05:29 10/03/22 05:29 09/29/22 03:01 Oxygen Flow Rate (L/min) 4 Oxygen Delivery Method Room Air Weight: 106 kg Body Mass Index (BMI) 30.8 Intake & Output: Intake and Output for Last 24 Hours 10/01/22 10/02/22 10/03/22 23:59 23:59 23:59 Intake Total 120 / 120 Output Total 2550 / 2550 1700 / 1700 700 / 700 Balance -2430 / -2430 -1700 / -1700 -700 / -700 Lab / Micro Data Result Diagrams: 10/02/22 05:05 10/02/22 05:05 Labs: Laboratory Results - last 24 hr 10/02/22 07:51: POC Glucose 193 H 10/02/22 11:33: POC Glucose 250 H 10/02/22 16:22: POC Glucose 184 H 10/02/22 22:21: POC Glucose 158 H Micro: Microbiology 09/18/22 09:42 Swab (Method) Nasal Screen MRSA/MSSA - Final Physical Exam Const alert and no apparent distress Constitutional Narrative: Oriented HEENT normocephalic and head/scalp atraumatic Eyes Eyes Narrative: EOM grossly intact, anicteric Neck supple Resp normal respiratory effort and clear to auscultation bilaterally Cardio regular rate and regular rhythm GI soft to palpation, non-tender and non-distended Extremity Extremity Narrative: No edema appreciated Neuro moves all extremities Neuro Narrative: No overt focal deficits appreciated Psych Psych Narrative: Cooperative Assessment & Plan Assessment/Plan (1) Status post right hip replacement: (2) Hypertension: QUALIFIERS: Hypertension type: essential hypertension (3) Diabetes mellitus with diabetic polyneuropathy: PLAN: Plan 1. POD #6 status post conversion of previous hip surgery to robotic assisted total replacement Pain is controlled, continue current pain regimen PT and OT to evaluate and treat Follow-up with orthopedics recommendations On doxycycline for 2 weeks per Ortho due to history of cellulitis Per Ortho dressings were removed 10/04 at long term facility, continue to await pre cert 2. Transient hypotension, resolved with fluid boluses 10/01: Did trend slightly but is on Coreg 25 twice daily and losartan 100, will decrease dose of losartan and monitor 10/02: Improved, within normal limits, would recommend discharge with current regimen 3. Hypertension/hyperlipidemia/history of stroke Continue on blood pressure meds with holding parameters, continue on atorvastatin 10/02: Stable 3. 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 DVT prophylaxis?Per primary team; aspirin twice daily Charges/Coding Visit Charges Inpatient E&M: [id number] [facility] Hosp L1
[2022-10-03 08:02] VITALS: BP 105/54; PULSE 76; RESP 16; TEMP 36.6; O2SAT 97
[2022-10-03] MEDS: Ensure Surgery 237 ML LIQUID PO ×2 (08:09→12:39)
[2022-10-03] MEDS: Aspirin 81 MG TAB.CHEW PO (08:09)
[2022-10-03 08:10] LABS: Bedside Glucose 157 mg/dL (74-106)
[2022-10-03] MEDS: Insulin Glargine-YFGN 100 UNIT/ML Pen 54 UNIT SC (08:29)
[2022-10-03] MEDS: Insulin Lispro 100 UNIT/ML INSULN.PEN 15 UNIT SC ×2 (08:31→12:38)
[2022-10-03 10:06] VITALS: O2SAT 92
--- NOTE | 2022-10-03 10:09 | CASEMGMT ---
Addendum entered by Jacey De La Cruz 10/03/22 11:51: SW into inform pt that working on discharge information now. Pt shared has friend willing to transport and will be here between 3-4 pm this day. Pt requested to wait for friend rather than ride in ambulance at this time. GERALD Melvin Original Note: Social Work SW received message in [facility] that precert has been obtained. A note from MICHLEL Garcia was added informing SNF to call [facility] floor when precert was obtained, however SNF did not do this. MICHELL paged Dr. Wisdom to inform of insurance auth. Will wait to hear from Dr. GALARZA in to notify pt of auth being obtained. Pt excited. Stated could possibly arrange transport to SNF. Pt will let MICHELL know for sure this morning. Pt declined MICHELL calling friends or family to update on discharge plan. GERALD Melvin
[2022-10-03] MEDS: Famotidine 20 MG Tablet PO (10:18)
[2022-10-03] MEDS: Cholecalciferol (VIT D3) 25 MCG TABLET (1,000 UNITS) 50 MCG PO (10:18)
[2022-10-03] MEDS: Meloxicam 7.5 MG Tablet PO (10:19)
[2022-10-03] MEDS: Doxycycline 100 MG CAPSULE PO (10:19)
[2022-10-03 10:33] VITALS: O2SAT 92
[2022-10-03 11:26] LABS: Bedside Glucose 262 mg/dL (74-106)
--- NOTE | 2022-10-03 12:18 | CASEMGMT ---
Social Work? MICHELL notified pt of discharge to [facility] today. 7000 previously completed. MICHELL faxed all discharge orders to [facility] via [employer] and notified of discharge time. Pt friend to pick pt up between 3-4pm this day and transport to [facility]. Blanco informed insurance requesting updated PT/OT notes. MICHELL also sent these notes via [employer]. MICHELL notified pt nurse of transport time. MICHELL made copies of discharge orders and placed on pt chart. Sent original orders in envelope with pt upon discharge.?? Disposition: [facility], skilled, convalescent, level of care? GERALD Melvin?
[2022-10-03 15:08] VITALS: BP 125/58; PULSE 84; RESP 18; TEMP 36.7; O2SAT 95
--- NOTE | 2022-10-03 15:47 | NURSING ---
REPORT CALLED TO CALLED TO THERESE AT [facility]
--- NOTE | 2022-10-03 16:16 | CASEMGMT ---
Social Work SW received notice that pt friend no longer able to transport pt. SW set up transportation via [facility] for 5:30pm. Nurse notified pt stated ride just doc;ed and will be on way to [employer] operator pt. MICHELL called PA to cancel transport. GERALD Melvin
--- NOTE | 2022-10-07 08:42 | PCM.DC.SUM ---
Providers Date of Admission: 09/27/22 Primary Care Physician: [facility] Consultations 09/27/22 14:30 Consult: Hospitalist Routine Consulting Provider: Emanuel Ly Reason for Consult: post op med management EMERGENT Consult: No MD Notified: Yes Date Notified: 09/27/22 Time Notified: 19:00 Method of Notification: Text Reason For Visit: POST TRAUMATIC RIGHT HIP OA Diagnosis Discharge Diagnosis (1) Status post right hip replacement: Status: Acute Code(s): Z96.641 - Presence of right artificial hip joint Plan TOTAL HIP REHAB Medications at Discharge Home Medications cholecalciferol (vitamin D3) 50 mcg (2,000 unit) capsule 2,000 unit PO DAILY supplement 08/18/19 metformin 1,000 mg tablet 1,000 mg PO BID dm 08/18/19 aspirin 81 mg tablet,delayed release 81 mg PO DAILY@0800 [facility] 07/08/20 insulin glargine 100 unit/mL (3 mL) subcutaneous pen 54 units subcut BREAKFAST diabetes control 07/08/20 insulin lispro 100 unit/mL subcutaneous pen 15 unit subcut TID diabetes 11/08/21 semaglutide 0.25 mg or 0.5 mg (2 mg/1.5 mL) subcutaneous pen injector (Ozempic) 1 mg subcut MO diabetes 12/02/21 carvedilol 25 mg tablet 25 mg PO BID BP 09/13/22 insulin aspart U-100 100 unit/mL (3 mL) subcutaneous pen (Novolog Flexpen U-100 Insulin aspart) 15 unit subcut TID DIABETES 09/13/22 losartan 100 mg tablet 100 mg PO DAILY BP 09/13/22 rosuvastatin 40 mg tablet 40 mg PO QHS CHOLESTEROL 09/13/22 acetaminophen 500 mg tablet 1,000 mg PO Q8 #0 tabs 09/29/22 aspirin 81 mg chewable tablet 81 mg PO BIDCM #0 tabs 09/29/22 doxycycline monohydrate 100 mg capsule 100 mg PO BID #0 caps 09/29/22 famotidine 20 mg tablet 20 mg PO DAILY #0 tabs 09/29/22 meloxicam 7.5 mg tablet 7.5 mg PO BID #0 tabs 09/29/22 nut.tx.comp. immune systm,reg 0.08 gram-1.4 kcal/mL oral liquid (Ensure Surgery) 237 ml PO TIDCM #0 mL 12/23/22 oxycodone 5 mg tablet 5 - 10 mg PO Q4H PRN PRN Pain Score 4-10 5 days #60 tabs 09/29/22 sennosides 8.6 mg-docusate sodium 50 mg tablet (Stool Softener-Stimulant Laxative) 2 tab PO BID #0 tabs 09/29/22 Hospital Course Operations total hip replacement Procedures None Summary of Care Provided Hospital Course: pt admitted 09-27 after conversion hip to angelita. did well post op, but required palcement. stayed in hospital stable until 10-04 awaiting insurance approval for placement. received PT and OT successfully. Physical Exam Const alert and oriented x3 General Appearance: cooperative HEENT normocephalic Eyes PERRL Neck No nuchal rigidity Resp normal respiratory effort Extremity Extremity Narrative: LLE: dressing c/di nvid Weight / BMI Weight Weight: 233 lb 11.04 oz Body Mass Index (BMI) 30.8 ABG / Lab / Microbiology Data Result Diagrams: 10/02/22 05:05 10/02/22 05:05 Microbiology: Microbiology 10/03/22 11:22 Nasal Secretion SARS-CoV-2 Antigen (Rapid) - Final 09/18/22 09:42 Swab (Method) Nasal Screen MRSA/MSSA - Final D/C Instructions Discharge Diet: No restrictions May shower in (days): 3 (only if incision is dry and without drainage. Do NOT soak/submerge in tub/pool/jj/stream/hot tub.) May resume sexual activity in: 6-8 weeks Ice area for (Minutes): 20 Weight Bearing Status: Weight bearing as tolerated Additional Activity Instructions: Wear elastic stockings for 2 weeks. DO NOT use alcohol with narcotic pain medication. DO NOT make important decisions while taking narcotic medication. If you have problems with taking your medication (rash, itching, nausea, etc.) call the office at once. Call your doctor if your incision/area has: Increased Pain/ Swelling, Increased Redness and Foul Smelling Discharge Call your doctor if you observe: Fever of 101 or Higher Additional Dressing/Incision Instructions: Remove dressing on postoperative day 5, if incision is clean dry and intact may leave the wound open to air and continue showering. If there is continued drainage continue daily dry dressing changes and keep incision clean dry and intact until there is no drainage. Please Follow Up With: Rohan Serra PA-C When: October 12, 2022 at 4 PM Meaningful Use Info Meaningful Use Diagnoses (Choose all that apply): None applicable Discharge Plan Admission Admit Date/Time: 09/27/22 07:34 Primary Reason for Your Visit: Right hip posttraumatic osteoarthritis Attending Provider: Matthew Wisdom Primary Care Provider: [facility] Consulting Providers: Enoch Crews ; Margaux Castillo Discharge Orders/Prescriptions Prescriptions: New sennosides-docusate sodium [Stool Softener-Stimulant Laxat] 8.6-50 mg Tablet 2 tab PO BID Qty: 0 0RF acetaminophen 500 mg Tablet 1,000 mg PO Q8 Qty: 0 0RF meloxicam 7.5 mg Tablet 7.5 mg PO BID Qty: 0 0RF famotidine 20 mg Tablet 20 mg PO DAILY Qty: 0 0RF doxycycline monohydrate 100 mg Capsule 100 mg PO BID Qty: 0 0RF aspirin 81 mg Tablet,Chewable 81 mg PO BIDCM Qty: 0 0RF oxycodone 5 mg Tablet 5 - 10 mg PO Q4H PRN PRN (Reason: Pain Score 4-10) 5 Days Qty: 60 0RF Ensure Surgery 0.08-1.4 gram-kcal/mL Liquid 237 ml PO TIDCM Qty: 0 0RF Continued metformin 1,000 MG tablet 1,000 mg PO BID Hold Instructions: Resume on 11/17/21. cholecalciferol (vitamin D3) 2,000 UNIT capsule 2,000 unit PO DAILY insulin glargine 100 UNITS/ML insulin pen 54 units subcut BREAKFAST insulin lispro 100 unit/mL Insulin Pen 15 unit SUBCUT TID Ozempic 0.25 mg or 0.5 mg(2 mg/1.5 mL) Pen Injector 1 mg SUBCUT MO carvedilol 25 mg Tablet 25 mg PO BID Rx Instructions: must administer with a meal/food losartan 100 mg Tablet 100 mg PO DAILY insulin aspart U-100 [Novolog Flexpen U-100 Insulin] 100 unit/mL (3 mL) Insulin Pen 15 unit SUBCUT TID rosuvastatin 40 mg Tablet 40 mg PO QHS Held aspirin 81 MG tablet 81 mg PO DAILY@0800 Hold Instructions: Resume on 10/25/22. Referrals / Follow Up: Rohan Serra PA-C [Med Staff - Adv Practice Prof] - 10/12/22 4:00 pm [facility] [Primary [facility] - Disposition Disposition (needs filled in before D/C Order can be placed): Senior Living Facility
== END 2022-10-03 16:45 | disposition skilled nursing facility (03) | DRG 470 ==
LOC: ACINP 07:37 → MS3 18:19
PROVIDERS: Anesthesiology; Internal Medicine; Admitting Provider Specialist; Referring Provider Specialist; Visit Provider Specialist
PROC: 8E0Y0CZ Robotic Assisted Procedure of Lower Extremity, Open Approach (ICD-10-PCS; CPT 27130; principal; 2022-09-27 10:45)
DX: M16.51 Unilateral post-traumatic osteoarthritis, right hip (principal); D62 Acute posthemorrhagic anemia; S72.141P Displaced intertrochanteric fracture of right femur, subsequent encounter for closed fracture with malunion; I95.89 Other hypotension; E11.42 Type 2 diabetes mellitus with diabetic polyneuropathy; E11.65 Type 2 diabetes mellitus with hyperglycemia; Z79.4 Long term (current) use of insulin; Z89.431 Acquired absence of right foot; I10 Essential (primary) hypertension; E78.00 Pure hypercholesterolemia, unspecified; X58.XXXD Exposure to other specified factors, subsequent encounter; F32.A Depression, unspecified; Z79.84 Long term (current) use of oral hypoglycemic drugs; Z79.85 Long-term (current) use of injectable non-insulin antidiabetic drugs; Z79.899 Other long term (current) drug therapy; Z86.73 Personal history of transient ischemic attack (TIA), and cerebral infarction without residual deficits; Z87.891 Personal history of nicotine dependence
CPT/HCPCS: 36415; 73502; 80048; 82040; 82962; 83036; 83735; 85025; 85027; 87081; 87426; 88305; 88311; 97110; 97116; 97162; 97166; 97530; 97535; 99251; C1776; J7040; J7120; A4216; G0463; J2405

== ENCOUNTER 2022-10-12 17:51 | Emergency (ER) | payer OTHER, SELFPAY ==
[2022-10-12 17:54] VITALS: BP 109/58; PULSE 87; RESP 19; TEMP 36; O2SAT 96; BMI 31.4
--- NOTE | 2022-10-12 18:15 | EDS_ITS ---
HPI History of Present Illness Chief Complaint: Lower Extremity Injury Informant: patient Narrative Narrative: Patient was sent in for possible evaluation of a DVT. Patient states he does have swelling of his legs right more than left. He thought this was from decreased activity. He just had a right total hip done on 27 September. He states he has been healing well. He feels fine. He has no fevers chills. No pain of his legs other than a little bit at the right hip that is improving. He has no chest pain or dyspnea. He has been eating and drinking well. No recent bleeding in the urine or stool. No history of bleeding in the head. Only blood thinner is baby aspirin. He has never had a DVT or PE before. He does have known history of diabetes. His past medical history, medications, surgical history family history and allergies are reviewed on the chart. He has no allergies. [facility] Medical History Amputation foot, unilat Anxiety Anxiety Arthritis Arthritis Back pain Cardiology follow-up encounter Cellulitis Cellulitis of right lower extremity Chest pain Chronic pain Debility Delayed wound healing Depression Depression Diabetes Diabetes Diabetes mellitus with diabetic polyneuropathy Diabetic foot infection Diabetic foot ulcer Former smoker Former smoker H/O alcohol abuse H/O alcohol abuse H/O drug abuse H/O drug abuse Hammer toe of right foot Hepatitis Hepatitis C History of stress test Hx of echocardiogram Hyperlipidemia Hypertension Hypertension Insomnia Non-pressure chronic ulcer of other part of right foot with fat layer exposed Preop cardiovascular exam Pruritus Sleep apnea Smoker Stroke TIA (transient ischemic attack) Toe amputee Troponin I above reference range Type 2 diabetes mellitus with diabetic polyneuropathy Vitamin D deficiency Wears dentures Wears glasses Home Medications cholecalciferol (vitamin D3) 50 mcg (2,000 unit) capsule 2,000 unit PO DAILY supplement 08/18/19 [History Last Taken 12/02/21] metformin 1,000 mg tablet 1,000 mg PO BID dm 08/18/19 [History Last Taken 12/02/21] aspirin 81 mg tablet,delayed release 81 mg PO DAILY@0800 heart health 07/08/20 [History Last Taken 09/26/22] insulin glargine 100 unit/mL (3 mL) subcutaneous pen 54 units subcut BREAKFAST diabetes control 07/08/20 [History Last Taken 12/02/21] insulin lispro 100 unit/mL subcutaneous pen 15 unit subcut TID diabetes 11/08/21 [History Last Taken 12/02/21] semaglutide 0.25 mg or 0.5 mg (2 mg/1.5 mL) subcutaneous pen injector (Ozempic) 1 mg subcut MO diabetes 12/02/21 [History Last Taken 11/28/21] carvedilol 25 mg tablet 25 mg PO BID BP 09/13/22 [History Last Taken Unknown] insulin aspart U-100 100 unit/mL (3 mL) subcutaneous pen (Novolog Flexpen U-100 Insulin aspart) 15 unit subcut TID DIABETES 09/13/22 [History Last Taken Unknown] losartan 100 mg tablet 100 mg PO DAILY BP 09/13/22 [History Last Taken Unknown] rosuvastatin 40 mg tablet 40 mg PO QHS CHOLESTEROL 09/13/22 [History Last Taken Unknown] acetaminophen 500 mg tablet 1,000 mg PO Q8 #0 tabs 09/29/22 [Rx Last Taken Unknown] aspirin 81 mg chewable tablet 81 mg PO BIDCM #0 tabs 09/29/22 [Rx Last Taken Unknown] doxycycline monohydrate 100 mg capsule 100 mg PO BID #0 caps 09/29/22 [Rx Last Taken Unknown] famotidine 20 mg tablet 20 mg PO DAILY #0 tabs 09/29/22 [Rx Last Taken Unknown] meloxicam 7.5 mg tablet 7.5 mg PO BID #0 tabs 09/29/22 [Rx Last Taken Unknown] nut.tx.comp. immune systm,reg 0.08 gram-1.4 kcal/mL oral liquid (Ensure Surgery) 237 ml PO TIDCM #0 mL 09/29/22 [Rx Last Taken Unknown] oxycodone 5 mg tablet 5 - 10 mg PO Q4H PRN PRN Pain Score 4-10 5 days #60 tabs 09/29/22 [Rx Last Taken Unknown] sennosides 8.6 mg-docusate sodium 50 mg tablet (Stool Softener-Stimulant Laxative) 2 tab PO BID #0 tabs 09/29/22 [Rx Last Taken Unknown] Allergy/AdvReac Type Severity Reaction Status Date / Time No Known Allergies Allergy Verified 09/27/22 09:11 Family History Other Cancer Diabetes Surgical History History of cholecystectomy History of hip surgery History of transmetatarsal amputation of right foot Hx of cardiac cath Presence of right artificial hip joint Social History Smoking Status: Former smoker EXAM Physical Exam Narrative Exam Narrative: Patient awake alert. He is nontoxic in the bed. He is very pleasant and cooperative. He is a reasonably good historian. No sign of facial trauma. No JVD. His heart is regular. I do think I hear a's quiet systolic murmur. No irregularity noted. Lungs are completely clear. No pain with a deep breath. Abdomen is soft and nontender. No CVA tenderness. I see no bruising abnormally on him. No intraoral or ocular petechiae. Right leg does show healing wound. He has history of a former transmetatarsal amputation of the right foot from diabetes. This is healed very well. The right leg does have some edema that is not seen on the left so much. Its not red or warm. Its not at all tender. I do not see distended veins. Patient is alert and oriented x3. No focal deficit. 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 No rashes noted. Const Vital Signs: 10/12/22 17:54 Temperature 96.8 F L Temperature Source Temporal Pulse Rate 87 Respiratory Rate 19 H Blood Pressure 109/58 L Blood Pressure Mean 75 Pulse Ox 96 Oxygen Delivery Method Room Air MDM MDM MDM Narrative Medical decision making narrative: Work done because he was anemic on his last check after surgery. I also want a make sure his platelet function was normal. CBC C was normal other than mild anemia but this is improving. This would be expected after surgery. Electrolytes show normal renal function. Glucose is minimally up at 134. If he had needed anticoagulation, renal function would not have precluded this. Lower extremity ultrasound does not show sign of a DVT. This was read by radio logy. I think this patient's edema likely is due to decreased activity. Although this patient has multiple risk factors for DVT the ultrasound is negative. He also has complex medical history. I think he is okay to go home. Discussed with the patient Lab Data Attestation: I reviewed the patient's lab results. Labs: Laboratory Results - last 24 hr 10/12/22 10/12/22 18:30 18:30 WBC 4.4 RBC 3.04 L Hgb 9.2 L Hct 28.2 L MCV 92.8 MCH 30.3 MCHC 32.6 RDW Std Deviation 47.8 H RDW Coeff of Hakeem 14.3 Plt Count 164 MPV 9.1 Immature Gran % (Auto) 0.700 Neut % (Auto) 73.8 H Lymph % (Auto) 16.5 L [place] % (Auto) 5.3 Eos % (Auto) 3.2 Baso % (Auto) 0.5 Absolute Neuts (auto) 3.2 Absolute Lymphs (auto) 0.72 L Nucleated RBC % 0 Sodium 141 Potassium 4.1 Chloride 111 H Carbon Dioxide 26.0 Anion Gap 4 L BUN 22 H Creatinine 1.01 Estim Creat Clear Calc 80.21 Est GFR (MDRD) Af Amer 95 Est GFR (MDRD) Non-Af 78 BUN/Creatinine Ratio 21.8 H Glucose 134 H Calcium 9.1 Radiography Diagnostic Testing: Clinical Impression(s) from Imaging Studies Venous Duplex 10/12/22 18:39 IMPRESSION: There is no demonstrated deep venous thrombosis.Leg edema noted. Electronically Signed: Nathan Lee MD at 19:31 EST Reading Location ID and State: [facility] / ID , Service support , Discharge Plan Triage Chief Complaint: Lower Extremity Injury ED Provider: Vijay Marlow Dx/Rx/DC Orders Clinical Impression: Edema, peripheral, Encounter for post surgical wound check Instructions: ED Lymphedema Prescriptions: No Action metformin 1,000 MG tablet 1,000 mg PO BID Hold Instructions: Resume on 11/17/21. cholecalciferol (vitamin D3) 2,000 UNIT capsule 2,000 unit PO DAILY aspirin 81 MG tablet 81 mg PO DAILY@0800 Hold Instructions: Resume on 10/25/22. insulin glargine 100 UNITS/ML insulin pen 54 units subcut BREAKFAST insulin lispro 100 unit/mL Insulin Pen 15 unit SUBCUT TID Ozempic 0.25 mg or 0.5 mg(2 mg/1.5 mL) Pen Injector 1 mg SUBCUT MO carvedilol 25 mg Tablet 25 mg PO BID Rx Instructions: must administer with a meal/food losartan 100 mg Tablet 100 mg PO DAILY insulin aspart U-100 [Novolog Flexpen U-100 Insulin] 100 unit/mL (3 mL) Insulin Pen 15 unit SUBCUT TID rosuvastatin 40 mg Tablet 40 mg PO QHS sennosides-docusate sodium [Stool Softener-Stimulant Laxat] 8.6-50 mg Tablet 2 tab PO BID Qty: 0 0RF acetaminophen 500 mg Tablet 1,000 mg PO Q8 Qty: 0 0RF meloxicam 7.5 mg Tablet 7.5 mg PO BID Qty: 0 0RF famotidine 20 mg Tablet 20 mg PO DAILY Qty: 0 0RF doxycycline monohydrate 100 mg Capsule 100 mg PO BID Qty: 0 0RF aspirin 81 mg Tablet,Chewable 81 mg PO BIDCM Qty: 0 0RF oxycodone 5 mg Tablet 5 - 10 mg PO Q4H PRN PRN (Reason: Pain Score 4-10) 5 Days Qty: 60 0RF Ensure Surgery 0.08-1.4 gram-kcal/mL Liquid 237 ml PO TIDCM Qty: 0 0RF Primary Care Provider: [facility] Referrals: Hospital,[facility] [Primary Care Provider] - As Needed Activity Restrictions/Additional Instructions: Follow-up with your orthopedic surgeon as scheduled. Disposition Disposition: Home, Self Care
--- NOTE | 2022-10-12 18:39 | US_ITS ---
STUDY: VENOUS DOPPLER ULTRASOUND - BILATERAL LOWER EXTREMITY REASON FOR EXAM: Male, 67 years old. LEG PAIN AND SWELLING BILATERAL SWELLING RT and gt;LT TECHNIQUE: Ultrasound evaluation of the deep vein system to include laureano-scale imaging and compression was performed. Laureano-scale imaging and Doppler sonographic evaluation, including duplex spectral analysis and qualitative color flow sonography, was performed. COMPARISON: None. FINDINGS: Common Femoral Vein: Normal compression, spontaneity and augmentation. Normal color Doppler. Common Femoral Vein/Greater Saphenous Junction: Normal compression, spontaneity and augmentation. Normal color Doppler. Superficial Femoral Proximal: Normal compression, spontaneity and augmentation. Normal color Doppler. Superficial Femoral Middle: Normal compression, spontaneity and augmentation. Normal color Doppler. Superficial Femoral Distal: Normal compression, spontaneity and augmentation. Normal color Doppler. Popliteal Vein: Normal compression, spontaneity and augmentation. Normal color Doppler. Posterior Tibial Vein: Normal compression, spontaneity and augmentation. Normal color Doppler. Leg edema noted. There is no demonstrated deep venous thrombosis. US/Venous Duplex Imag/[place] Extrem IMPRESSION: There is no demonstrated deep venous thrombosis.Leg edema noted. Electronically Signed: Nathan Lee MD at 19:31 EST ,
[2022-10-12 18:43] LABS: Absolute Lymphocyte Count 0.72 X10^3/uL (0.83-4.51); Absolute Neutrophil Count 3.2 X10^3/uL (2.0-7.7); Basophil# 0.02 X10^3/uL; Basophil% 0.5 % (0-1); Eosinophil# 0.14 X10^3/uL; Eosinophils% 3.2 % (0-5); Hematocrit 28.2 % (40-54); Hemoglobin 9.2 g/dL (13.0-16.5); Lymphocyte # 0.72 X10^3/ul (0.83-4.51); Lymphocyte % 16.5 % (19-41); Mean Corp Hgb Conc 32.6 g/dL (32-36); Mean Corpuscular Hgb 30.3 pg (27.0-32.0); Mean Corpuscular Volume 92.8 fL (80-94); Mean Platelet Vol. 9.1 fl (6.2-12.0); Monocyte# 0.23 X10^3/uL; Monocyte% 5.3 % (0-10); NRBC Flagged by Analyzer 0 % (0-5); Neutrophil # 3.23 X10^3/uL (2.7-7.7); Neutrophil % 73.8 % (47-70); Platelet Count 164 K/mm3 (150-450); RBC Distribution Width CV 14.3 % (11.6-14.6); RBC Distribution Width SD 47.8 fl (35.1-43.9); Red Blood Count 3.04 M/mm3 (4.6-6.2); White Blood Count 4.4 K/mm3 (4.4-11.0)
[2022-10-12 19:18] LABS: Anion Gap 4 (5-15); BUN 22 mg/dL (7-18); BUN/Creat Ratio 21.8 RATIO (10-20); Calcium,Total 9.1 mg/dL (8.5-10.1); Chloride 111 mmol/L (98-107); Creatinine, Serum 1.01 mg/dL (0.70-1.30); EST Glomerular Filtration Rate 78 mL/min (>60); Est Glom Filt Rate - Afr Amer 95 mL/min (>60); Estimated Creatinine Clearance 80.21 ml/min; Glucose 134 mg/dL (74-106); Potassium 4.1 mmol/L (3.5-5.1); Sodium Level 141 mmol/L (136-145)
[2022-10-12 20:17] VITALS: BP 112/89; PULSE 67; RESP 17; O2SAT 97
== END 2022-10-12 21:09 | disposition home or self-care (01) ==
PROVIDERS: Emergency Provider Emergency Medicine; Visit Provider Emergency Medicine
DX: Z51.89 Encounter for other specified aftercare (principal); E11.42 Type 2 diabetes mellitus with diabetic polyneuropathy; R60.0 Localized edema; D64.9 Anemia, unspecified; Z87.891 Personal history of nicotine dependence; E78.5 Hyperlipidemia, unspecified; I10 Essential (primary) hypertension; Z96.641 Presence of right artificial hip joint
CPT/HCPCS: 80048; 85025; 93970; 99282; A4216

== ENCOUNTER 2023-11-20 15:47 | Inpatient (IN) | payer MEDICARE, SELFPAY ==
[2023-11-20 16:19] VITALS: BP 138/83; PULSE 88; RESP 16; RESP 17; TEMP 36.5; O2SAT 99; BMI 28.0
--- OUTSIDE RECORDS SUMMARY | 2023-11-20 20:15 | XMS RPT_ITS | CCD ---
Author Name Unknown Address [address] [place] [address] [employer] [address] [place] [id number] Organization [facility] Care Team Providers Care Access Spec Name Role Phone NATTY RAMON Attending Unavailable NATTY RAMON Primary Care Unavailable NATTY RAMON Admitting Unavailable [place], [facility] Primary Care Unavailable ALPESH RECINOS, DIVYA Consulting Unavailable OLENA RECINOS, DR GUTIERREZ Attending Unavailable OLENA RECINOS, DR GUTIERREZ Admitting Unavailable NICOLAS RECINOS, DR BIRD Consulting Unavailab le Results Test Name Value Interpretation Reference Range Facil ity Encounters Encounter Date Encounter Type Care Provider Facility Start: 11-14-2023 Evaluation and manag ement of inpatient [facility] Facility:A Start: 01-30-2023 End: 01-30-2023 ambulatory NATTY RAMON [facility] Payers Date Payer Category Payer Medicare [id number] 2023 Private Health Insurance [id number] 2023 Unknown [id number] 1955 Unknown [id number] 1955 Unknown [id number] Progress note 09-02-2021 Note Date & Type Note Facility 09-02-2021 Note HNO ID: [id number] Author: Rohit Dorsey MD Service: ? Author Type: Physician Type: Progress Notes Filed: 09/02/2021 1:33 PM Note Text: Chief Complaint Patient presents with: Establish Care HPI Narciso Wylie is a 66 year old male who presents here today for Above Complaints.. [facility] wants a provider closer for acute needs. Patient with Hx of HTN, Hyperlipidemia, DM, Chronic A. Fib, GERD, Hx of drug and alcohol abuse, Hx of smoking weed and cigarettes and quit in 2018 as well as those reviewed and addressed below and in ROS. Patient has been doing well. No issues or concerns at this time. Just [facility] recently. [facility] and right hip replaced. Past medical history, appointments, medications, allergies reviewed. 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 - metFORMIN (GLUCOPHAGE) 1,000 mg tablet Take 1,000 mg by mouth. - meclizine 25 mg chewable tablet(s) Take 25 mg by mouth. - melatonin 3 mg tablet Take 6 mg by mouth. - liraglutide (VICTOZA) 0.6 mg/ 0.1 ml subcutaneous pen injector Inject subcutaneously. - glyBURIDE (DIABETA) 5 mg tablet Take 10 mg by mouth. - glucose 4 gram chewable tablet Take 4 g by mouth. - nystatin (MYCOSTATIN) powder Nystatin Powder Active 1 APPLIC 0600,2200 September 02, 2019 8:37pm - omeprazole (PRILOSEC) 20 mg capsule Take 20 mg by mouth. - rivaroxaban (XARELTO) 10 mg tablet Take 10 mg by mouth. - sodium chloride (AYR, OCEAN) 0.65 % nasal spray Sodium Chloride 0.65% 2 SPRAY NASAL NEEDED PRN For Allergies April 30, 2017 Active No current facility-administered medications on file prior to visit. Social History Social History Tobacco Use - Smoking status: Never Smoker - Smokeless tobacco: Never Used Substance Use Topics - Alcohol use: Not Currently - Drug use: Not Currently Review of Symptoms REVIEW OF SYSTEMS GENERAL: No weight loss, malaise or fevers NECK: Negative for lumps, goiter, pain and significant neck swelling RESPIRATORY: Negative for cough, hemoptysis, wheezing, COPD, dyspnea or shortness of breath CARDIOVASCULAR: Negative for chest pain, leg swelling, hypertension, CHF or palpitations GI: No nausea, vomiting, or diarrhea and No heartburn or reflux symptoms : no dysuria, or blood HEMATOLOGY/LYMPHOLOGY: Negative for prolonged bleeding, bruising easily or swollen nodes. Endo: No symptoms of low BS's NEURO: No history of headaches, syncope, paralysis, seizures or tremors EXAM: BP 132/80 Pulse 74 Resp 12 Wt 116.6 kg (257 lb) General Appearance: Well appearing, alert, in no acute distress, well-hydrated, well nourished. and Obese. Eyes: Anicteric sclera. Pupils are equally round and reactive to light. Extraocular movements are intact. . Neck: Supple, no adenopathy; thyroid symmetric, normal size, no bruits. Lungs: Lungs clear to auscultation. No wheezing, rhonchi, rales.. Heart: Negative findings: regular rate and rhythm, S1 normal, S2 normal, no rubs, clicks or gallops, Positive findings: murmur: 1/6 systolic low pitched soft murmur URSB . Abdomen: Normal abdominal exam, Abdomen soft, non-tender. Bowel sounds normal. No masses, organomegaly. Extremities: No deformities. Wearing support socks.. Peripheral Pulses: Normal. Neurologic: Gait normal. Reflexes normal and symmetric. Sensation to light touch and crainal nerves 2-12 intact.. Health Maintenance List DEPRESSION SCREENING Never done COVID-19 VACCINE(1) Never done HEPATITIS C SCREENING Never done DTAP,TDAP,TD(1 - Tdap) Never done LIPID SCREEN Never done DIABETES SCREEN Never done COLORECTAL CANCER SCREENING Never done SHINGRIX VACCINE(1 of 2) Never done PROSTATE CANCER SCREENING DISCUSSION Never done ADVANCE DIRECTIVE DISCUSSION Never done PNEU (more content not included)... [facility] Summary Purpose Family History No Family History Records FoundNo Family History Records FoundNo Family History Records Found Advance Directives No Advanced Directives Records FoundNo Advanced Directives Records FoundNo Advanced Directives Records Found Additional Source Comments (unrecognized sect ion and content) No Status Records FoundNo Status Records FoundNo Status Records Found INFORMATION SOURCE (unrecogn ized section and content) DATE CREATED AUTHOR AUTHOR'S ORGANIZ ATION 01/31/2023 [facility] DATE CREATED AUTHOR AUTHOR'S ORGANIZ ATION 11/20/2023 [facility] ([place]) FOR RECORDS PERTAINING TO PATIENTS WHO ARE OR HAVE BEEN ENROLLED IN A CHEMICAL DEPENDENCY/SUBSTANCEABUSE PROGRAM, SOME INFORMATION MAY BE OMITTED. This clinical summary was aggregated from multiple sources. Caution should be exercised in using it in the provision of clinical care. This summary normalizes information from multiple sources, and as a consequence, information in this document may materially change the coding, format and clinical context of patient data. In addition, data may be omitted in some cases. CLINICAL DECISIONS SHOULD BE BASED ON THE PRIMARY CLINICAL RECORDS. [facility] [employer] [facility]. provides no warranty or guarantee of the accuracy or completeness of information in this document.
--- NOTE | 2023-11-20 20:21 | HP.PCM_ITS ---
HPI - General General Date of Admission: 11/20/23 Date of Service: 11/20/23 Chief Complaint: Here for rehabilitation. HPI Narrative DAMON WYLIE, is a 68 Male who presents with followin11/14/2023 Admit to [facility] with presyncope, lethargy. Third degree AV block. MATHEUS, Hyperkalemia treated with IV Lasix until euvolemic. MATHEUS improved, diuresed appropriately. 11/15/2023 Underwent pacemaker implantation. Post Chest X-ray negative for pneumothorax. Suspect iatrogenic AV node injury during SAVR resulting in third degree AV block. Beta romulo resumed. 11/16/2023 PT recommended SNF on discharge. 11/20/2023 Admit to TCU with debility, here for rehabilitation, strengthening, prior to discharge home with . [facility] Medical History (Updated 11/20/23 @ 20:[address] Jimmy Valentin MD) Amputation foot, unilat Anxiety Anxiety Arthritis Arthritis Back pain Cardiology follow-up encounter Cellulitis Cellulitis of right lower extremity Chest pain Chronic pain Debility Delayed wound healing Depression Depression Diabetes Diabetes Diabetes mellitus with diabetic polyneuropathy Diabetic foot infection Diabetic foot ulcer Former smoker Former smoker H/O alcohol abuse H/O alcohol abuse H/O drug abuse H/O drug abuse Hammer toe of right foot Hepatitis Hepatitis C History of stress test Hx of echocardiogram Hyperlipidemia Hypertension Hypertension Insomnia Non-pressure chronic ulcer of other part of right foot with fat layer exposed Preop cardiovascular exam Pruritus Sleep apnea Smoker Stroke TIA (transient ischemic attack) Toe amputee Troponin I above reference range Type 2 diabetes mellitus with diabetic polyneuropathy Vitamin D deficiency Wears dentures Wears glasses Home Medications cholecalciferol (vitamin D3) 50 mcg (2,000 unit) capsule 2,000 unit PO DAILY supplement 08/18/19 [History Last Taken 12/02/21] metformin 1,000 mg tablet 1,000 mg PO BID dm 08/18/19 [History Last Taken 12/02/21] aspirin 81 mg tablet,delayed release 81 mg PO DAILY@0800 heart health 07/08/20 [History Last Taken 09/26/22] insulin glargine 100 unit/mL (3 mL) subcutaneous pen 54 units subcut BREAKFAST diabetes control 07/08/20 [History Last Taken 12/02/21] insulin lispro 100 unit/mL subcutaneous pen 15 unit subcut TID diabetes 11/08/21 [History Last Taken 12/02/21] semaglutide 0.25 mg or 0.5 mg (2 mg/1.5 mL) subcutaneous pen injector (Ozempic) 1 mg subcut MO diabetes 12/02/21 [History Last Taken 11/28/21] carvedilol 25 mg tablet 25 mg PO BID BP 09/13/22 [History Last Taken Unknown] insulin aspart U-100 100 unit/mL (3 mL) subcutaneous pen (Novolog FlexPen U-100 Insulin aspart) 15 unit subcut TID DIABETES 09/13/22 [History Last Taken Unknown] losartan 100 mg tablet 100 mg PO DAILY BP 09/13/22 [History Last Taken Unknown] rosuvastatin 40 mg tablet 40 mg PO QHS CHOLESTEROL 09/13/22 [History Last Taken Unknown] acetaminophen 500 mg tablet 1,000 mg (2 x 500 mg) PO Q8 #0 tabs 09/29/22 [Rx Last Taken Unknown] doxycycline monohydrate 100 mg capsule 100 mg PO BID #0 caps 09/29/22 [Rx Last Taken Unknown] famotidine 20 mg tablet 20 mg PO DAILY #0 tabs 09/29/22 [Rx Last Taken Unknown] meloxicam 7.5 mg tablet 7.5 mg PO BID #0 tabs 09/29/22 [Rx Last Taken Unknown] nut.tx.comp. immune systm,reg 0.08 gram-1.4 kcal/mL oral liquid (Ensure Surgery) 237 ml PO TIDCM #0 mL 09/29/22 [Rx Last Taken Unknown] oxycodone 5 mg tablet 5 - 10 mg (1 - 2 x 5 mg) PO Q4H PRN PRN Pain Score 4-10 5 days #60 tabs 09/29/22 [Rx Last Taken Unknown] sennosides 8.6 mg-docusate sodium 50 mg tablet (Stool Softener-Stimulant Laxative) 2 tab PO BID #0 tabs 09/29/22 [Rx Last Taken Unknown] acetaminophen 325 mg capsule 325 mg PO Q6H PRN fever or pain 11/20/23 [History Last Taken Unknown] ascorbic acid (vitamin C) 250 mg tablet 250 mg PO DAILY health 11/20/23 [History Last Taken Unknown] aspirin 81 mg chewable tablet 81 mg PO DAILY blood 11/20/23 [History Last Taken Unknown] bacitracin 500 unit/gram topical ointment 1 applic topical BID wound 11/20/23 [History Last Taken Unknown] docusate sodium 100 mg capsule (Colace) 100 mg PO DAILY PRN constipation 11/20/23 [History Last Taken Unknown] ferrous sulfate 325 mg (65 mg iron) tablet 325 mg PO DAILY health 11/20/23 [History Last Taken Unknown] furosemide 40 mg tablet 40 mg PO DAILY swelling 11/20/23 [History Last Taken Unknown] insulin glargine U-300 conc 300 unit/mL (3 mL) subcutaneous pen (Toujeo Max U- 300 SoloStar) 45 unit subcut DAILY diabetes 11/20/23 [History Last Taken Unknown] losartan 25 mg tablet 25 mg PO DAILY blood pressure 11/20/23 [History Last Taken Unknown] melatonin 10 mg capsule 10 mg PO DAILY PRN insomnia 11/20/23 [History Last Taken Unknown] metoprolol succinate 25 mg tablet,extended release 24 hr 25 mg PO DAILY blood pressure 11/20/23 [History Last Taken Unknown] omeprazole 20 mg capsule,delayed release 40 mg PO DAILY GERD 11/20/23 [History Last Taken Unknown] risperidone 1 mg tablet 1 mg PO BID bipolar 11/20/23 [History Last Taken Unknown] semaglutide 0.25 mg or 0.5 mg (2 mg/3 mL) subcutaneous pen injector (Ozempic) 0.5 mg subcut QWEEK diabetes 11/20/23 [History Last Taken Unknown] Allergy/AdvReac Type Severity Reaction Status Date / Time No Known Allergies Allergy Verified 09/27/22 09:11 Family History Other Cancer Diabetes Surgical History (Updated 11/20/23 @ 20:[address] Jimmy Valentin MD) History of aortic valve replacement History of cholecystectomy History of hip surgery History of permanent cardiac pacemaker placement History of transmetatarsal amputation of right foot Hx of cardiac cath Presence of right artificial hip joint Social History (Updated 11/20/23 @ 20:[address] Jimmy Valentin MD) household members: spouse current occupational status: disabled Smoking Status: Former smoker alcohol intake: never substance use type: does not use ROS Constitutional Constitutional: Denies chills, fever(s) or weight gain ENT HEENT: Denies headache(s), nasal congestion or nasal discharge Cardiovascular Cardiovascular: Denies chest pain or palpitations Respiratory/Chest Respiratory/Chest: Denies cough, excessive phlegm production or shortness of breath with exertion Gastrointestinal Gastrointestinal: Denies abdominal pain, nausea or vomiting Genitourinary Genitourinary: Denies dysuria Musculoskeletal Musculoskeletal: Denies joint pain or joint swelling Integumentary Integumentary: Denies rash or wounds Neurologic Neurologic: Denies focal weakness, numbness or tingling Psychiatric Psychiatric: Denies anxiety, auditory hallucinations, depression, homicidal ideation or suicidal ideation Vital Signs Vital Signs Vital Signs: 11/20/23 16:19 11/20/23 16:19 Temperature 97.7 F L Temperature Source Temporal Pulse Rate 88 Pulse Rhythm Regular Respiratory Rate 16 17 Respiratory Effort Normal Respiratory Depth Normal Respiratory Pattern Normal Blood Pressure 138/83 H Blood Pressure Mean 101 Blood Pressure Source Monitor Blood Pressure Position Sitting Blood Pressure Location Right Arm Pulse Ox 99 Oxygen Delivery Method Room Air Room Air Weight Weight: 96.524 kg Body Mass Index (BMI) 28.0 Physical Exam Const alert General Appearance: cooperative HEENT normocephalic Eyes PERRL and EOMs intact bilaterally Neck supple, no JVD and no carotid bruits Resp normal respiratory effort, normal air movement and clear to auscultation bilaterally Cardio regular rate and regular rhythm GI normal to inspection, nondistended, normoactive bowel sounds, non-tender and non-distended Extremity normal capillary refill General Extremity: Negative for edema Skin no rashes or lesions noted General Skin Exam: no breakdown Psych affect normal Appearance: appropriate Assessment & Plan Assessment/Plan (1) Debility: (2) Pre-syncope: (3) Lethargy: (4) Third degree AV block: (5) Acute kidney injury: (6) Hyperkalemia: (7) Depression: QUALIFIERS: Depression Type: unspecified Qualified Code(s): F32.9 - Major depressive disorder, single episode, unspecified (8) Diabetes mellitus type II, controlled: (9) Hyperlipidemia: QUALIFIERS: Hyperlipidemia type: unspecified (10) TIA (transient ischemic attack): (11) Bipolar disorder: PLAN: Plan 68 year old male with below past medical history hospitalized for third degree AV block, underwent pacemaker implantation 11/15/2023, complicated by MATHEUS, hyperkalemia, failed home discharge, admitted to TCU with debility, here for rehabilitation, strengthening, prior to discharge home with . * Debility - PT/OT. * Pain - Tylenol 1000mg q6 prn pain (1-10). * Bowel - senna/colace 1 tablet bid, Magnesium citrate 300ml daily prn. * Adult immunization - Administer pneumonia vaccine, covid vaccine, flu vaccine as appropriate. * DVT prophylaxis - Hold, monitor. * Iron deficiency anemia - Ferrex 150mg daily, Vitamin C 500mg daily. * TIA - Aspirin 81mg daily. * Hyperlipidemia - Atorvastatin 80mg qhs. * s/p pacemaker implantation - Bacitracin ointment topical bid. * Edema - Furosemide 40mg daily. * Diabetes Mellitus II - Ozempic 0.5mg per week, Glargine 45 units daily. * Hypertension - Metoprolol succinate 25mg daily, Losartan 25mg daily. * Insomnia - Melatonin 10mg qhs prn. * Skin irritation - Calmoseptine topical bid. * Tinea Corporis - Nystatin powder topical bid. * GERD - Pantoprazole 40mg daily. * Bipolar disorder - Risperidone 1mg bid, stable chronic halfway use, GDR not recommended.
[2023-11-20] MEDS: RisperiDONE 1 MG Tablet PO (20:46)
[2023-11-20] MEDS: Atorvastatin Calcium 80 MG Tablet PO (20:49)
[2023-11-20] MEDS: BACITRACIN 15 GM Tube 1 APPLIC TOPICAL (20:49)
[2023-11-20] MEDS: MELATONIN 10 MG TABLET PO (20:49)
[2023-11-20] MEDS: Nystatin Powder 15gm Bottle 1 APPLIC TOPICAL (20:57)
[2023-11-20] MEDS: Menthol/Lanolin/Calamine/Znox 113 GM Tube 1 APPLIC TOPICAL (20:57)
[2023-11-20] MEDS: Senna/Docusate Sodium 1 Tablet PO (20:58)
[2023-11-20 22:28] LABS: Bedside Glucose 109 mg/dL (74-106)
--- NOTE | 2023-11-21 04:27 | NURSING ---
Spoke with patient regarding Ozempic. Pt stated he was unaware he was supposed to bring it from home and upon further inquiry, patient sounded very unsure if he would be able to get the medication here; stated he would try to find someone to bring it tomorrow (11/21). He typically takes the medication every Sunday morning and missed his dose yesterday. Written communication left for Dr. Valentin.
[2023-11-21 05:57] LABS: Absolute Lymphocyte Count 0.93 X10^3/uL (0.83-4.51); Absolute Neutrophil Count 2.9 X10^3/uL (2.0-7.7); Basophil# 0.04 X10^3/uL; Basophil% 0.9 % (0-1); Eosinophil# 0.26 X10^3/uL; Eosinophils% 5.6 % (0-5); Hematocrit 38.6 % (40-54); Hemoglobin 12.2 g/dL (13.0-16.5); Lymphocyte # 0.93 X10^3/ul (0.83-4.51); Lymphocyte % 20.2 % (19-41); Mean Corp Hgb Conc 31.6 g/dL (32-36); Mean Corpuscular Hgb 26.8 pg (27.0-32.0); Mean Corpuscular Volume 84.6 fL (80-94); Monocyte# 0.45 X10^3/uL; Monocyte% 9.8 % (0-10); NRBC Flagged by Analyzer 0 % (0-5); Neutrophil # 2.92 X10^3/uL (2.7-7.7); Neutrophil % 63.3 % (47-70); Platelet Count 121 K/mm3 (150-450); Red Blood Count 4.56 M/mm3 (4.6-6.2); White Blood Count 4.6 K/mm3 (4.4-11.0)
[2023-11-21 06:45] LABS: Anion Gap 6 (5-15); BUN 31 mg/dL (7-18); BUN/Creat Ratio 27.9 RATIO (10-20); Calcium,Total 9.1 mg/dL (8.5-10.1); Chloride 111 mmol/L (98-107); Creatinine, Serum 1.11 mg/dL (0.70-1.30); EST Glomerular Filtration Rate 70 mL/min (>60); Est Glom Filt Rate - Afr Amer 85 mL/min (>60); Estimated Creatinine Clearance 77.97 ml/min; Glucose 97 mg/dL (74-106); Potassium 3.8 mmol/L (3.5-5.1); Sodium Level 141 mmol/L (136-145)
[2023-11-21 06:49] LABS: Bedside Glucose 96 mg/dL (74-106)
[2023-11-21] MEDS: Aspirin E.C. 81 MG Tablet PO (08:38)
[2023-11-21] MEDS: Iron Polysaccharide Complex 150 MG CAPSULE PO (08:39)
[2023-11-21] MEDS: Furosemide 40 MG Tablet PO (08:39)
[2023-11-21] MEDS: Ascorbic Acid 500 MG Tablet PO (08:39)
[2023-11-21] MEDS: Losartan Potassium 25 MG Tablet PO (08:39)
[2023-11-21 08:40] VITALS: BP 109/67; PULSE 95
[2023-11-21] MEDS: Senna/Docusate Sodium 1 Tablet PO ×2 (08:40→21:21)
[2023-11-21] MEDS: Pantoprazole Sodium 40 MG Tablet PO (08:40)
[2023-11-21] MEDS: Metoprolol(XL)Succ 25 MG Tablet PO (08:40)
[2023-11-21] MEDS: Menthol/Lanolin/Calamine/Znox 113 GM Tube 1 APPLIC TOPICAL ×2 (08:41→21:55)
[2023-11-21] MEDS: Nystatin Powder 15gm Bottle 1 APPLIC TOPICAL ×2 (08:41→21:55)
[2023-11-21] MEDS: RisperiDONE 1 MG Tablet PO ×2 (08:46→21:21)
[2023-11-21] MEDS: BACITRACIN 15 GM Tube 1 APPLIC TOPICAL (08:48)
[2023-11-21 08:50] VITALS: BP 109/67; PULSE 95
--- NOTE | 2023-11-21 11:26 | WOUNDNOTE ---
wound photo: left plantar foot
--- NOTE | 2023-11-21 11:39 | NURSING ---
Curriculum Supervisor Note; Activity Asset: Lakeisha Stuart is independent in his choice of daily activities. He has stated he is now and has friends that will visit and bring him things if he needs them. He will read the paper and watch tv an welcomes visit from the solar panel technician and therapy dog when available. Staff will offer him weekly activities, take him in room activities of choice and respect his right to say no.
--- NOTE | 2023-11-21 12:49 | CASEMGMT ---
Social Work Met with patient to complete initial assessment. Pt known to this worker from previous stay. Verified/updated contacts. Patient confirmed code status as full code. Pt stated he is going through a divorce with his , Francy, who is HCPOA. SW offered to complete new documents, but denied. Educated to [facility] insurance with [employer] 11/22 and continued stay is not guaranteed with each review. See SW assessment for services and details. Pt's goal is to return home at [facility]. Pt does not have support to assist with physical assistance. SW will continue to follow for DC planning. ANABELL BookerW
[2023-11-21] MEDS: Glucerna Shake 120 ML LIQUID PO ×2 (12:56→17:14)
[2023-11-21] MEDS: Tuberculin,Purif.prot.deriv. 50 TU/ML Vial 0.100000000000000006 ML ID (12:57)
[2023-11-21 14:00] VITALS: BP 115/68; PULSE 93; RESP 16; TEMP 36.3; O2SAT 99
--- NOTE | 2023-11-21 15:22 | PCM.PN.DRR ---
Documented by User: Patricia Lincoln 11/21/23 15:41 TCU RX Drug Regimen Review Subjective/Objective Subjective/Objective: Subjective: TCU Admission. 68 YOM presented to outside ER with presyncope and lethargy. Hospitalized for third degree AV block, underwent pacemaker implantation 11/15/2023, complicated by MATHEUS, hyperkalemia, failed home discharge. Admitted to TCU with debility for strengthening and rehabilitation. Objective: Allergies No Known Allergies Allergy (Verified 09/27/22 09:11) Current Medications Generic Name Dose Route Start Last Admin Trade Name Freq PRN Reason Stop Dose Admin Acetaminophen 1,000 mg 11/20/23 20:48 Acetaminophen 500 Mg Tablet PO Q6H PRN Pain Score 1-10 Ascorbic Acid 500 mg 11/21/23 08:00 11/21/23 08:39 Ascorbic Acid 500 Mg Tablet PO 500 mg DAILYCM KAREN Administration Aspirin 81 mg 11/21/23 08:00 11/21/23 08:38 Aspirin E.C. 81 Mg Tablet PO 81 mg DAILY@0800 KAREN Administration Atorvastatin Calcium 80 mg 11/20/23 22:00 11/20/23 20:49 Atorvastatin Calcium 80 Mg Tablet PO 80 mg QHS KAREN Administration Calamine/Phenol 1 applic 11/20/23 22:00 11/21/23 08:41 Menthol/Lanolin/Calamine/Znox 113 Gm Tube TOPICAL 1 applic BID KAREN Administration Protocol Furosemide 40 mg 11/21/23 10:00 11/21/23 08:39 Furosemide 40 Mg Tablet PO 40 mg DAILY KAREN Administration Protocol Insulin Glargine 45 unit 11/21/23 10:00 11/21/23 08:44 Insulin Glargine-Yfgn 100 Unit/Ml Pen SC Not Given DAILY KAREN Losartan Potassium 25 mg 11/21/23 10:00 11/21/23 08:39 Losartan Potassium 25 Mg Tablet PO 25 mg DAILY KAREN Administration Protocol Magnesium Citrate 300 ml 11/20/23 20:47 Magnesium Citrate 300 Ml PO DAILY PRN Constipation Melatonin 10 mg 11/20/23 18:25 11/20/23 20:49 Melatonin 10 Mg Tablet PO 10 mg QHS PRN Administration insomnia Metoprolol Succinate 25 mg 11/21/23 10:00 11/21/23 08:40 Metoprolol(Xl)Succ 25 Mg Tablet PO 25 mg DAILY KAREN Administration Protocol Non-Formulary Medication 0.5 mg 11/20/23 18:00 Semaglutide [Ozempic] SC QWEEK [facility] Nutritional Formula (Lactose Free) 120 ml 11/21/23 12:45 11/21/23 12:56 Glucerna Shake 120 Ml Liquid PO 120 ml TIDCM KAREN Administration Nystatin 1 applic 11/20/23 22:00 11/21/23 08:41 Nystatin Powder 15gm Bottle TOPICAL 1 applic BID [facility] Administration Protocol Pantoprazole Sodium 40 mg 11/21/23 10:00 11/21/23 08:40 Pantoprazole Sodium 40 Mg Tablet PO 40 mg DAILY KAREN Administration Polysaccharide Iron Complex 150 mg 11/21/23 08:00 11/21/23 08:39 Iron Polysaccharide Complex 150 Mg Capsule PO 150 mg 0800 [facility] Administration Risperidone 1 mg 11/20/23 22:00 11/21/23 08:46 Risperidone 1 Mg Tablet PO 1 mg BID KAREN Administration Senna/Docusate Sodium 1 tablet 11/20/23 22:00 11/21/23 08:40 Senna/Docusate Sodium 1 Tablet PO 1 tablet BID KAREN Administration Tuberculin PPD 0.1 ml 11/28/23 10:00 Tuberculin,Purif.Prot.Deriv. 50 Tu/Ml Vial ID 11/28/23 10:01 X1 ONE Problem List (Updated 11/20/23 @ 20:[address] Jimmy Valentin MD) Bipolar disorder (Acute) TIA (transient ischemic attack) (Acute) Hyperlipidemia (Acute) Diabetes mellitus type II, controlled (Acute) Depression (Acute) Hyperkalemia (Acute) Third degree AV block (Acute) Lethargy (Acute) Pre-syncope (Acute) Debility (Acute) Vital Signs Temp Pulse Resp BP Pulse Ox O2 Del Method 97.7 F L 95 17 109/67 99 Room Air 11/20/23 16:19 11/21/23 08:50 11/20/23 16:19 11/21/23 08:50 11/20/23 16:19 11/20/23 16:19 Oxygen Delivery Method Room Air Weight: 96.524 kg Body Mass Index (BMI) 28.0 Sodium 141 mmol/L (136-145) 11/21/23 05:11 Potassium 3.8 mmol/L (3.5-5.1) 11/21/23 05:11 Chloride 111 mmol/L (98-107) H 11/21/23 05:11 Carbon Dioxide 24.0 mmol/L (21.0-32.0) 11/21/23 05:11 Anion Gap 6 (5-15) 11/21/23 05:11 BUN 31 mg/dL (7-18) H 11/21/23 05:11 Creatinine 1.11 mg/dL (0.70-1.30) 11/21/23 05:11 Est GFR (MDRD) Af Amer 85 mL/min (>60) 11/21/23 05:11 Est GFR (MDRD) Non-Af 70 mL/min (>60) 11/21/23 05:11 BUN/Creatinine Ratio 27.9 RATIO (10-20) H 11/21/23 05:11 Glucose 97 mg/dL (74-106) 11/21/23 05:11 Assessment/Plan: 1. Pain: acetaminophen 1000mg PO Q6H PRN pain 1-10. Resident has not had any PRN doses. Please continue to monitor for increased pain and PRN usage. 2. Bowel: senna/docusate 1T PO BID and magnesium citrate 300mL PO daily PRN constipation. Please continue to monitor for constipation and PRN usage. Resident has not used any magnesium citrate. No documented bowel movement at this time. 3. Iron deficiency anemia: Ferrex 150mg PO daily and ascorbic acid 500mg PO daily. Please continue to monitor hemoglobin (last 12.2g/dL), dark stools and constipation. 4. TIA: aspirin 81mg PO daily. Please continue to monitor for S/S of bleeding and hemoglobin. 5. Hyperlipidemia: atorvastatin 80mg PO QHS. Please consider ordering a lipid panel as the last level in the chart is from 2017. Thanks. Please continue to monitor LFTs (last 08/17/23) and muscle pain. 6. Hypertension: metoprolol succinate 25mg PO daily and losartan 25mg PO daily. Please continue to monitor BP (last 109/67), HR (last 95 bpm), renal function and potassium (last 3.8mmol/L). 7. Edema: furosemide 40mg PO daily. Please continue to monitor for edema, renal function and potassium. 8. Diabetes mellitus: Ozempic 0.5mg Sc weekly (not yet started) and insulin glargine 45units SC daily. Did not get today's dose as blood sugar was 96mg/dL. Please consider ordering a hemoglobin A1c as the last was now 3 months ago (08/17/23). Thanks. Please consider ordering hold parameters for insulin glargine as resident did not get a dose today due to blood glucose of 96 mg/dL. Please continue to monitor blood glucose (last 96mg/dL), weight loss, GI side effcts and S/S of hypoglycemia. 9. Insomnia: melatonin 10mg PO QHS PRN insomnia. Resident has had 1 dose so far. Please continue to monitor for excessive drowsiness and PRN usage. 10. GERD: pantoprazole 40mg PO daily. Please continue to monitor for S/S of GERD and diarrhea (BEERs medication). Assessment/Plan for indications treated with psychotropic medications: 1. Bipolar disorder: risperidone 1mg PO BID. Please see physician note regarding GDR. Please continue to monitor for falls/fractures (BEERs medication), dementia/delirium (black box warning, BEERs medication), sodium (last 141mmol/L). Medical chart and medication regimen reviewed. The following medication irregularities or issues were identified: 1. Atorvastatin 80mg PO QHS. Please consider ordering a lipid panel as the last level in the chart is from 2017. Thanks. 2. Ozempic 0.5mg Sc weekly (not yet started) and insulin glargine 45units SC daily. Please consider ordering a hemoglobin A1c as the last was now 3 months ago (08/17/23). Thanks. Please consider ordering hold parameters for insulin glargine as resident did not get a dose today due to blood glucose of 96 mg/dL. Date Date of Note:: 11/21/23 Documented by User: Dr. Jimmy Valentin MD 11/21/23 17:13 TCU RX Drug Regimen Review Provider Comments Provider responsibility Provider Comments to Recommendations by Pharmacy: Agree
[2023-11-21 17:13] LABS: Bedside Glucose 176 mg/dL (74-106)
[2023-11-21] MEDS: Atorvastatin Calcium 80 MG Tablet PO (21:21)
[2023-11-21] MEDS: MELATONIN 10 MG TABLET PO (21:23)
[2023-11-22 06:37] LABS: Cholesterol 106 mg/dL (200); High Density Lipoprotein 26 mg/dL; Triglycerides 89 mg/dL; Very Low Density Lipoprotein 18 mg/dL (5-40)
[2023-11-22 06:44] LABS: Bedside Glucose 115 mg/dL (74-106)
[2023-11-22] MEDS: Glucerna Shake 120 ML LIQUID PO ×3 (08:40→16:45)
[2023-11-22] MEDS: RisperiDONE 1 MG Tablet PO ×2 (08:42→21:54)
[2023-11-22] MEDS: Losartan Potassium 25 MG Tablet PO (08:42)
[2023-11-22] MEDS: Pantoprazole Sodium 40 MG Tablet PO (08:42)
[2023-11-22 08:43] VITALS: BP 140/83; PULSE 104
[2023-11-22] MEDS: Metoprolol(XL)Succ 25 MG Tablet PO (08:43)
[2023-11-22] MEDS: Ascorbic Acid 500 MG Tablet PO (08:43)
[2023-11-22] MEDS: Aspirin E.C. 81 MG Tablet PO (08:43)
[2023-11-22] MEDS: Iron Polysaccharide Complex 150 MG CAPSULE PO (08:43)
[2023-11-22] MEDS: Senna/Docusate Sodium 1 Tablet PO ×2 (08:45→21:54)
[2023-11-22] MEDS: Menthol/Lanolin/Calamine/Znox 113 GM Tube 1 APPLIC TOPICAL (08:49)
[2023-11-22] MEDS: Nystatin Powder 15gm Bottle 1 APPLIC TOPICAL (08:50)
[2023-11-22 08:54] VITALS: BP 140/83; PULSE 104
[2023-11-22] MEDS: Furosemide 40 MG Tablet PO (08:54)
[2023-11-22 09:24] LABS: Hemoglobin A1c 6.9 % (3.8-5.6)
[2023-11-22 14:00] VITALS: BP 125/71; PULSE 89; RESP 18; TEMP 36.2; O2SAT 97
--- NOTE | 2023-11-22 15:06 | CASEMGMT ---
Addendum entered by Ines Dubose 11/23/23 13:56: SW followed up with pt on DC transport. Pt has not secured any yet. SW offered to contact [place] and [facility]. Pt agreed. [place] is unable, but [facility] Van can transport at 1:45 pm. SW followed up with pt and pt agreeable to van. Original Note: Social Work Insurance issued LCD 11/25, DC 11/26. SW spoke with pt and pt is agreeable to DC. Pt unsure if he has access to his walker at home. SW offered to call [employer] for elibiligty of a new one. Pt agreed. SW offered HHC vs OP. Pt prefers HHC and used [facility] prior. Pt to contact friend to determine transportation. SW phoned [facility] and no record. SW sent referral via [facility] for FWW. SW phoned referral to [facility] for PT/SN. Pt has [employer] [facility] that will resume, per pt. Plan: DC home alone 11/26, [facility] PT/SN, FWW Ines Dubose, [employer] SALES REPRESENTATIVE
[2023-11-22 16:32] LABS: Bedside Glucose 241 mg/dL (74-106)
[2023-11-22] MEDS: Insulin Glargine-YFGN 100 UNIT/ML Pen 45 UNIT SC (16:45)
--- NOTE | 2023-11-22 19:12 | PCM.DC.SUM ---
Providers Date of Admission: 11/20/23 Primary Care Physician: [facility] Consultations 11/21/23 00:43 Consult: Onc/Wound/desktop engineer Routine Comment: Reason for Consult:: Diabetic Ulcer on Left Foot Reason For Visit: NEW PACEMAKER Diagnosis Discharge Diagnosis (1) Debility: Status: Acute Code(s): R53.81 - Other malaise (2) Pre-syncope: Status: Acute Code(s): R55 - Syncope and collapse (3) Lethargy: Status: Acute Code(s): R53.83 - Other fatigue (4) Third degree AV block: Status: Acute Code(s): I44.2 - Atrioventricular block, complete (5) Acute kidney injury: Status: Resolved Code(s): N17.9 - Acute kidney failure, unspecified (6) Hyperkalemia: Status: Acute Code(s): E87.5 - Hyperkalemia (7) Depression: Status: Acute Code(s): F32.9 - Major depressive disorder, single episode, unspecified Qualifiers: Depression Type: unspecified Qualified Code(s): F32.9 - Major depressive disorder, single episode, unspecified (8) Diabetes mellitus type II, controlled: Status: Acute Code(s): E11.9 - Type 2 diabetes mellitus without complications (9) Hyperlipidemia: Status: Acute Code(s): E78.5 - Hyperlipidemia, unspecified Qualifiers: Hyperlipidemia type: unspecified (10) TIA (transient ischemic attack): Status: Acute Code(s): G45.9 - Transient cerebral ischemic attack, unspecified (11) Bipolar disorder: Status: Acute Code(s): F31.9 - Bipolar disorder, unspecified Plan 68 year old male with below past medical history hospitalized for third degree AV block, underwent pacemaker implantation 11/15/2023, complicated by MATHEUS, hyperkalemia, failed home discharge, admitted to TCU with debility, here for rehabilitation, strengthening, prior to discharge home with . Debility - PT/OT. Pain - Tylenol 1000mg q6 prn pain (1-10). Bowel - senna/colace 1 tablet bid, Magnesium citrate 300ml daily prn. Adult immunization - Administer pneumonia vaccine, covid vaccine, flu vaccine as appropriate. DVT prophylaxis - Hold, monitor. Iron deficiency anemia - Ferrex 150mg daily, Vitamin C 500mg daily. TIA - Aspirin 81mg daily. Hyperlipidemia - Atorvastatin 80mg qhs. s/p pacemaker implantation - Bacitracin ointment topical bid. Edema - Furosemide 40mg daily. Diabetes Mellitus II - Ozempic 0.5mg per week, Glargine 45 units daily. Hypertension - Metoprolol succinate 25mg daily, Losartan 25mg daily. Insomnia - Melatonin 10mg qhs prn. Skin irritation - Calmoseptine topical bid. Tinea Corporis - Nystatin powder topical bid. GERD - Pantoprazole 40mg daily. 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 Medications at Discharge Home Medications aspirin 81 mg tablet,delayed release 81 mg PO DAILY@0800 heart health 07/08/20 rosuvastatin 40 mg tablet 40 mg PO QHS CHOLESTEROL 09/13/22 ascorbic acid (vitamin C) 250 mg tablet 250 mg PO DAILY health 11/20/23 ferrous sulfate 325 mg (65 mg iron) tablet 325 mg PO DAILY health 11/20/23 furosemide 40 mg tablet 40 mg PO DAILY swelling 11/20/23 insulin glargine U-300 conc 300 unit/mL (3 mL) subcutaneous pen (Toujeo Max U-300 SoloStar) 45 unit subcut DAILY diabetes 11/20/23 losartan 25 mg tablet 25 mg PO DAILY blood pressure 11/20/23 melatonin 10 mg capsule 10 mg PO DAILY PRN insomnia 11/20/23 metoprolol succinate 25 mg tablet,extended release 24 hr 25 mg PO DAILY blood pressure 11/20/23 omeprazole 20 mg capsule,delayed release 40 mg PO DAILY GERD 11/20/23 risperidone 1 mg tablet 1 mg PO BID bipolar 11/20/23 semaglutide 0.25 mg or 0.5 mg (2 mg/3 mL) subcutaneous pen injector (Ozempic) 0.5 mg subcut QWEEK diabetes 11/20/23 Hospital Course Operations None Procedures - (Pacemaker implantation. ) Summary of Care Provided Minutes Spent on Discharge: 35 Hospital Course: 68 year old male with below past medical history hospitalized for third degree AV block, underwent pacemaker implantation 11/15/2023, complicated by MATHEUS, hyperkalemia, failed home discharge, admitted to TCU with debility, here for rehabilitation, strengthening, prior to discharge home with . DC home alone 11/26, [facility] PT/SN, FWW FWW: Patient is unsafe to use a cane and requires a walker for ambulation in the home and the community. Physical Exam Const alert General Appearance: cooperative HEENT normocephalic Eyes PERRL and EOMs intact bilaterally Neck supple, no JVD and no carotid bruits Resp normal respiratory effort, normal air movement and clear to auscultation bilaterally Cardio regular rate and regular rhythm GI normal to inspection, nondistended, normoactive bowel sounds, non-tender and non-distended Extremity normal capillary refill General Extremity: Negative for edema Skin no rashes or lesions noted General Skin Exam: no breakdown Psych affect normal Appearance: appropriate Weight / BMI Weight Weight: 96.524 kg Body Mass Index (BMI) 28.0 ABG / Lab / Microbiology Data 11/21/23 05:11 11/21/23 05:11 Laboratory: Laboratory Results - last 24 hr 11/21/23 05:11: Hemoglobin A1c 6.9 H, Triglycerides 89, Cholesterol 106, LDL Cholesterol 62, VLDL Cholesterol 18, HDL Cholesterol 26 L 11/22/23 06:22: POC Glucose 115 H 11/22/23 16:02: POC Glucose 241 H D/C Instructions Discharge Diet: No restrictions Discharge Activity: Return to Normal Activity, May Shower and Use Walker Weight Bearing Status: Weight bearing as tolerated Call your doctor if you observe: Fever of 101 or Higher, Inability to urinate, Inability to have a bowel movement, Shortness of breath, Dizziness, Fainting spells, Swelling in the ankles, Chest pain and Uncontrolled pain Additional Instructions: DC home alone 11/26, [facility] PT/SN, FWW FWW: Patient is unsafe to use a cane and requires a walker for ambulation in the home and the community. Please Follow Up With: Reynaldo Rust MD Meaningful Use Info Meaningful Use Diagnoses (Choose all that apply): None applicable Discharge Plan Admission Admit Date/Time: 11/20/23 15:47 Primary Reason for Your Visit: Debility. Attending Provider: Jimmy Valentin Chi Primary Care Provider: [facility],[place] Instructions Additional Instructions / Restrictions: DC home alone 11/26, [facility] PT/SN, FWW FWW: Patient is unsafe to use a cane and requires a walker for ambulation in the home and the community. Discharge Orders/Prescriptions Prescriptions: Continued aspirin 81 MG tablet 81 mg PO DAILY@0800 Hold Instructions: Resume on 10/25/22. rosuvastatin 40 mg Tablet 40 mg PO QHS furosemide 40 mg tablet 40 mg PO DAILY losartan 25 mg tablet 25 mg PO DAILY ferrous sulfate 325 mg (65 mg iron) tablet 325 mg PO DAILY metoprolol succinate 25 mg tablet extended release 24 hr 25 mg PO DAILY ascorbic acid (vitamin C) 250 mg tablet 250 mg PO DAILY insulin glargine U-300 conc [Toujeo Max U-300 SoloStar] 300 unit/mL (3 mL) insulin pen 45 unit subcut DAILY melatonin 10 mg capsule 10 mg PO DAILY PRN (Reason: insomnia) omeprazole 20 mg capsule,delayed release(DR/EC) 40 mg PO DAILY risperidone 1 mg tablet 1 mg PO BID Ozempic 0.25 mg or 0.5 mg (2 mg/3 mL) pen injector 0.5 mg subcut QWEEK Rx Instructions: for 4 weeks. Patient needs to bring from home Discontinued metformin 1,000 MG tablet 1,000 mg PO BID Hold Instructions: Resume on 11/17/21. cholecalciferol (vitamin D3) 2,000 UNIT capsule 2,000 unit PO DAILY insulin glargine 100 UNITS/ML insulin pen 54 units subcut BREAKFAST insulin lispro 100 unit/mL Insulin Pen 15 unit SUBCUT TID Ozempic 0.25 mg or 0.5 mg(2 mg/1.5 mL) Pen Injector 1 mg SUBCUT MO carvedilol 25 mg Tablet 25 mg PO BID Rx Instructions: must administer with a meal/food losartan 100 mg Tablet 100 mg PO DAILY insulin aspart U-100 [Novolog FlexPen U-100 Insulin] 100 unit/mL (3 mL) Insulin Pen 15 unit SUBCUT TID sennosides-docusate sodium [Stool Softener-Stimulant Laxat] 8.6-50 mg Tablet 2 tab PO BID Qty: 0 0RF acetaminophen 500 mg Tablet 1,000 mg PO Q8 Qty: 0 0RF meloxicam 7.5 mg Tablet 7.5 mg PO BID Qty: 0 0RF famotidine 20 mg Tablet 20 mg PO DAILY Qty: 0 0RF doxycycline monohydrate 100 mg Capsule 100 mg PO BID Qty: 0 0RF oxycodone 5 mg Tablet 5 - 10 mg PO Q4H PRN PRN (Reason: Pain Score 4-10) 5 Days Qty: 60 0RF Ensure Surgery 0.08-1.4 gram-kcal/mL Liquid 237 ml PO TIDCM Qty: 0 0RF acetaminophen 325 mg capsule 325 mg PO Q6H PRN (Reason: fever or pain) bacitracin 500 unit/gram ointment 1 applic topical BID Rx Instructions: apply to left foot wound docusate sodium [Colace] 100 mg capsule 100 mg PO DAILY PRN (Reason: constipation) aspirin 81 mg Tablet,Chewable 81 mg PO DAILY Referrals / Follow [facility] [Primary [facility] - Disposition Disposition (needs filled in before D/C Order can be placed): Home Health Service
[2023-11-22] MEDS: Atorvastatin Calcium 80 MG Tablet PO (21:54)
[2023-11-22] MEDS: MELATONIN 10 MG TABLET PO (21:54)
[2023-11-23 06:12] LABS: Bedside Glucose 131 mg/dL (74-106)
[2023-11-23] MEDS: Aspirin E.C. 81 MG Tablet PO (08:34)
[2023-11-23] MEDS: Iron Polysaccharide Complex 150 MG CAPSULE PO (08:34)
[2023-11-23] MEDS: Pantoprazole Sodium 40 MG Tablet PO (08:35)
[2023-11-23] MEDS: Ascorbic Acid 500 MG Tablet PO (08:35)
[2023-11-23] MEDS: Losartan Potassium 25 MG Tablet PO (08:35)
[2023-11-23] MEDS: Furosemide 40 MG Tablet PO (08:35)
[2023-11-23] MEDS: RisperiDONE 1 MG Tablet PO ×2 (08:35→21:21)
[2023-11-23 08:36] VITALS: PULSE 106
[2023-11-23] MEDS: Senna/Docusate Sodium 1 Tablet PO ×2 (08:36→21:21)
[2023-11-23] MEDS: Metoprolol(XL)Succ 25 MG Tablet PO (08:36)
[2023-11-23] MEDS: Insulin Glargine-YFGN 100 UNIT/ML Pen 45 UNIT SC (08:37)
[2023-11-23] MEDS: Menthol/Lanolin/Calamine/Znox 113 GM Tube 1 APPLIC TOPICAL ×2 (08:39→21:20)
[2023-11-23] MEDS: Glucerna Shake 120 ML LIQUID PO ×3 (08:43→17:07)
[2023-11-23 09:00] VITALS: BP 120/73; PULSE 106; RESP 16; O2SAT 97
[2023-11-23 14:00] VITALS: TEMP 36.4
--- NOTE | 2023-11-23 14:06 | CASEMGMT ---
Social Work BIMS () and PHQ-2 () completed MDS assessment. Ines Dubose MSW APN
[2023-11-23 17:31] LABS: Bedside Glucose 157 mg/dL (74-106)
[2023-11-23] MEDS: MELATONIN 10 MG TABLET PO (21:20)
[2023-11-23] MEDS: Nystatin Powder 15gm Bottle 1 APPLIC TOPICAL (21:20)
[2023-11-23] MEDS: Atorvastatin Calcium 80 MG Tablet PO (21:21)
[2023-11-24 06:17] LABS: Bedside Glucose 116 mg/dL (74-106)
[2023-11-24 09:19] VITALS: BP 147/88; PULSE 103; RESP 16; O2SAT 98
[2023-11-24] MEDS: Pantoprazole Sodium 40 MG Tablet PO (09:20)
[2023-11-24] MEDS: Iron Polysaccharide Complex 150 MG CAPSULE PO (09:20)
[2023-11-24] MEDS: Glucerna Shake 120 ML LIQUID PO ×3 (09:20→17:48)
[2023-11-24] MEDS: Senna/Docusate Sodium 1 Tablet PO ×2 (09:20→20:29)
[2023-11-24] MEDS: RisperiDONE 1 MG Tablet PO ×2 (09:21→20:29)
[2023-11-24] MEDS: Aspirin E.C. 81 MG Tablet PO (09:21)
[2023-11-24 09:22] VITALS: PULSE 103
[2023-11-24] MEDS: Metoprolol(XL)Succ 25 MG Tablet PO (09:22)
[2023-11-24] MEDS: Ascorbic Acid 500 MG Tablet PO (09:22)
[2023-11-24] MEDS: Furosemide 40 MG Tablet PO (09:22)
[2023-11-24] MEDS: Losartan Potassium 25 MG Tablet PO (09:22)
[2023-11-24] MEDS: Insulin Glargine-YFGN 100 UNIT/ML Pen 45 UNIT SC (09:23)
[2023-11-24] MEDS: Menthol/Lanolin/Calamine/Znox 113 GM Tube 1 APPLIC TOPICAL ×2 (09:26→20:29)
[2023-11-24] MEDS: Nystatin Powder 15gm Bottle 1 APPLIC TOPICAL ×2 (09:26→20:30)
[2023-11-24 14:00] VITALS: BP 118/64; PULSE 91; RESP 20; TEMP 36.9; O2SAT 98
[2023-11-24 16:43] LABS: Bedside Glucose 169 mg/dL (74-106)
[2023-11-24] MEDS: Atorvastatin Calcium 80 MG Tablet PO (20:28)
[2023-11-24] MEDS: MELATONIN 10 MG TABLET PO (20:32)
[2023-11-25 06:35] LABS: Bedside Glucose 121 mg/dL (74-106)
[2023-11-25 08:52] VITALS: BP 140/77; PULSE 98; RESP 16; O2SAT 94
[2023-11-25 08:54] VITALS: PULSE 98
[2023-11-25] MEDS: Pantoprazole Sodium 40 MG Tablet PO (08:54)
[2023-11-25] MEDS: Metoprolol(XL)Succ 25 MG Tablet PO (08:54)
[2023-11-25] MEDS: Senna/Docusate Sodium 1 Tablet PO ×2 (08:54→20:10)
[2023-11-25] MEDS: RisperiDONE 1 MG Tablet PO ×2 (08:54→20:10)
[2023-11-25] MEDS: Losartan Potassium 25 MG Tablet PO (08:55)
[2023-11-25] MEDS: Ascorbic Acid 500 MG Tablet PO (08:55)
[2023-11-25] MEDS: Iron Polysaccharide Complex 150 MG CAPSULE PO (08:55)
[2023-11-25] MEDS: Aspirin E.C. 81 MG Tablet PO (08:55)
[2023-11-25] MEDS: Insulin Glargine-YFGN 100 UNIT/ML Pen 45 UNIT SC (08:55)
[2023-11-25] MEDS: Furosemide 40 MG Tablet PO (08:55)
[2023-11-25] MEDS: Glucerna Shake 120 ML LIQUID PO ×3 (08:58→18:03)
[2023-11-25] MEDS: Menthol/Lanolin/Calamine/Znox 113 GM Tube 1 APPLIC TOPICAL ×2 (08:59→20:11)
[2023-11-25] MEDS: Nystatin Powder 15gm Bottle 1 APPLIC TOPICAL ×2 (08:59→20:12)
[2023-11-25 14:00] VITALS: BP 118/61; PULSE 93; RESP 24; TEMP 36.5; O2SAT 97
[2023-11-25 16:54] LABS: Bedside Glucose 217 mg/dL (74-106)
[2023-11-25] MEDS: MELATONIN 10 MG TABLET PO (20:09)
[2023-11-25] MEDS: Atorvastatin Calcium 80 MG Tablet PO (20:11)
[2023-11-26 06:41] LABS: Bedside Glucose 169 mg/dL (74-106)
[2023-11-26] MEDS: Glucerna Shake 120 ML LIQUID PO ×2 (08:52→11:29)
[2023-11-26] MEDS: Ascorbic Acid 500 MG Tablet PO (08:57)
[2023-11-26] MEDS: Iron Polysaccharide Complex 150 MG CAPSULE PO (08:57)
[2023-11-26] MEDS: Aspirin E.C. 81 MG Tablet PO (08:57)
[2023-11-26] MEDS: Pantoprazole Sodium 40 MG Tablet PO (08:58)
[2023-11-26] MEDS: Furosemide 40 MG Tablet PO (08:58)
[2023-11-26] MEDS: Losartan Potassium 25 MG Tablet PO (08:58)
[2023-11-26 08:59] VITALS: BP 145/77; PULSE 104
[2023-11-26] MEDS: RisperiDONE 1 MG Tablet PO (08:59)
[2023-11-26] MEDS: Metoprolol(XL)Succ 25 MG Tablet PO (08:59)
[2023-11-26] MEDS: Menthol/Lanolin/Calamine/Znox 113 GM Tube 1 APPLIC TOPICAL (09:00)
[2023-11-26] MEDS: Insulin Glargine-YFGN 100 UNIT/ML Pen 45 UNIT SC (09:01)
[2023-11-26 09:04] VITALS: BP 145/77; PULSE 104
[2023-11-26 13:41] VITALS: BP 112/62; PULSE 95; RESP 16; TEMP 36.4; O2SAT 97
[2023-11-26 14:47] VITALS: BP 112/62; PULSE 95; RESP 16; TEMP 36.4; O2SAT 97
--- NOTE | 2023-12-03 09:06 | MDS.RN ---
Information for the mds was obtained from review of the clinical record, interview of resident, staff, and direct observation of resident's care.
== END 2023-11-26 14:10 | disposition home health service (06) | DRG 949 ==
PROVIDERS: Admitting Provider Family Medicine Geriatric Medicine; Visit Provider Family Medicine Geriatric Medicine
DX: Z48.812 Encounter for surgical aftercare following surgery on the circulatory system (principal); I44.2 Atrioventricular block, complete; E11.42 Type 2 diabetes mellitus with diabetic polyneuropathy; D50.9 Iron deficiency anemia, unspecified; E78.5 Hyperlipidemia, unspecified; B35.4 Tinea corporis; F31.9 Bipolar disorder, unspecified; Z79.4 Long term (current) use of insulin; I10 Essential (primary) hypertension; K21.9 Gastro-esophageal reflux disease without esophagitis; Z95.0 Presence of cardiac pacemaker; Z79.82 Long term (current) use of aspirin; Z87.891 Personal history of nicotine dependence; Z79.899 Other long term (current) drug therapy; Z79.84 Long term (current) use of oral hypoglycemic drugs
CPT/HCPCS: 36415; 80048; 80061; 82962; 83036; 85025; 97110; 97116; 97162; 97166; 97530; 97535

== ENCOUNTER 2023-12-10 11:59 | Outpatient (RCR) | payer MEDICARE, SELFPAY ==
[2023-12-10 12:50] LABS: AST(SGOT) 23 U/L (15-37); Alanine Aminotransfer ALT/SGPT 36 U/L (16-61); Albumin, Serum 3.5 g/dL (3.2-5.0); Alkaline Phosphatase 64 U/L (45-117); Anion Gap 4 (5-15); BUN 21 mg/dL (7-18); BUN/Creat Ratio 19.1 RATIO (10-20); Bilirubin, Direct 0.17 mg/dL (0.00-0.30); Calcium,Total 8.8 mg/dL (8.5-10.1); Chloride 105 mmol/L (98-107); Cholesterol 91 mg/dL (200); EST Glomerular Filtration Rate 71 mL/min (>60); Est Glom Filt Rate - Afr Amer 85 mL/min (>60); Ferritin 55 ng/mL (26-388); Globulin 3.9 g/dL (2.2-4.2); Glucose 234 mg/dL (74-106); High Density Lipoprotein 34 mg/dL; PSA,Total - Annual Screen 0.29 ng/mL (0.00-4.00); Phosphorus 3.1 mg/dL (2.5-4.9); Potassium 4.5 mmol/L (3.5-5.1); Protein, Total 7.4 g/dL (6.4-8.2); Sodium Level 136 mmol/L (136-145); Thyroid Stim Hormone (TSH) 0.83 uIU/mL (0.358-3.74); Triglycerides 100 mg/dL; Very Low Density Lipoprotein 20 mg/dL (5-40)
[2023-12-10 12:53] LABS: Hematocrit 41.4 % (40-54); Hemoglobin 13.1 g/dL (13.0-16.5); Mean Corp Hgb Conc 31.6 g/dL (32-36); Mean Corpuscular Hgb 27.5 pg (27.0-32.0); Mean Platelet Vol. 10.6 fl (6.2-12.0); Platelet Count 142 K/mm3 (150-450); RBC Distribution Width CV 14.4 % (11.6-14.6); Red Blood Count 4.76 M/mm3 (4.6-6.2); White Blood Count 5.1 K/mm3 (4.4-11.0)
[2023-12-10 12:59] LABS: International Normalized Ratio 1.1; Prothrombin Time (Protime)PT. 14.3 SECONDS (11.7-14.9)
[2023-12-10 13:07] LABS: Microalbumin,Random Urine 25.7 mg/L (NO RANGE EST.); Microalbumin:Creatinine Ratio 29.9 mg/g CRE (<30 mg/g CRE)
[2023-12-10 13:32] LABS: Hemoglobin A1c 6.9 % (3.8-5.6)
[2023-12-11 08:12] LABS: AFP, Tumor Marker < 1.8 ng/mL (0.0-8.4)
== END 2024-01-05 18:00 | disposition home or self-care (01) ==
LOC: HHLAB 11:59
PROVIDERS: Referring Provider Family Medicine; Visit Provider Family Medicine
DX: N17.9 Acute kidney failure, unspecified (principal); Z12.5 Encounter for screening for malignant neoplasm of prostate
CPT/HCPCS: 80048; 80061; 80076; 82043; 82105; 82570; 82728; 83036; 84100; 84153; 84443; 85027; 85610; G0103

== ENCOUNTER → 2024-01-16 | Outpatient (CLI) | payer OTHER, SELFPAY ==
--- NOTE | 2024-01-16 09:48 | PCM.CR.HP2 ---
CR - History & Physical General Arrival date:: 01/16/24 Arrival time:: 09:48 Date of Referral:: 12/24/23 Date of CR Evaluation:: 01/16/24 Referring Physician: PRESLEY Primary Diagnosis: S/P AVR History of Present Cardiac Event Onset Date Heart valve replacement or repair:: Yes (onset 12/20/23) Medications Ambulatory Orders Medication Instructions Recorded aspirin 81 mg tablet,delayed 81 mg PO DAILY@0800 heart health 07/08/20 release rosuvastatin 40 mg tablet 40 mg PO QHS CHOLESTEROL 09/13/22 ascorbic acid (vitamin C) 250 mg 250 mg PO DAILY health 11/20/23 tablet ferrous sulfate 325 mg (65 mg 325 mg PO DAILY health 11/20/23 iron) tablet furosemide 40 mg tablet 40 mg PO DAILY swelling 11/20/23 insulin glargine U-300 conc 300 45 unit subcut DAILY diabetes 11/20/23 unit/mL (3 mL) subcutaneous pen (TouTweet Categoryo Max U-300 SoloStar) losartan 25 mg tablet 25 mg PO DAILY blood pressure 11/20/23 melatonin 10 mg capsule 10 mg PO DAILY PRN insomnia 11/20/23 metoprolol succinate 25 mg 25 mg PO DAILY blood pressure 11/20/23 tablet,extended release 24 hr omeprazole 20 mg capsule,delayed 40 mg PO DAILY GERD 11/20/23 release risperidone 1 mg tablet 1 mg PO BID bipolar 11/20/23 semaglutide 0.25 mg or 0.5 mg (2 0.5 mg subcut QWEEK diabetes 11/20/23 mg/3 mL) subcutaneous pen injector (Ozempic) Allergies Allergies No Known Allergies Allergy (Verified 09/27/22 09:11) Sleep Disorder Evaluation Hx of Sleep Apnea: No Do you snore loudly (louder than talking or can be heard through closed doors)?: No Do you often feel tired/ fatigued/ sleepy during daytime?: No Has anyone observed you stop breathing during sleep?: No History of Hypertension (for STOP score): Yes STOP Results: Negative Advanced Directives Advanced Directives Power of Sales Planning Analyst: Yes Living Will: Yes Advance Directives Information Provided: Yes Advance Directives on File: No DNR Order?:: No Past Medical History Covid-19 Screening Physicial Symptoms Other Clinical Concerns Exposure Risk Pertinent Comorbidities 65 years or older:: Yes Has a serious heart condition:: Yes Diabetic:: Yes Past Medical Illness Past Medical History (Updated 12/04/23 @ 00:02 by Background Daemon) Amputation foot, unilat S98.919A RIGHT Anxiety F41.9 Anxiety F41.9 Arthritis M19.90 Arthritis M19.90 Back pain M54.9 Cardiology follow-up encounter 09 MO-LAST VISIT 07/13/22 Cellulitis L03.90 Cellulitis of right lower extremity L03.115 Chest pain R07.9 Chronic pain G89.29 Debility R53.81 Delayed wound healing T14.8XXD Depression F32.9 Depression F32.A Diabetes E11.9 Diabetes E11.9 ON INSULIN Diabetes mellitus with diabetic polyneuropathy E11.42 Diabetic foot infection E11.628, L08.9 Diabetic foot ulcer E11.621, L97.509 Former smoker Z87.891 Former smoker Z87.891 QUIT 2020 H/O alcohol abuse F10.11 H/O alcohol abuse F10.11 H/O drug abuse F19.11 H/O drug abuse F19.11 Hammer toe of right foot M20.41 Hepatitis K75.9 Hepatitis C B19.20 History of stress test Z92.89 10/09/2019 Hx of echocardiogram Z92.89 07/2020 Hyperlipidemia E78.5 Hypertension I10 Hypertension I10 CONTROLLED ON MED Insomnia G47.00 Non-pressure chronic ulcer of other part of right foot with fat layer exposed L97.512 Preop cardiovascular exam Pruritus L29.9 Sleep apnea G47.30 Smoker F17.200 Stroke I63.9 TIA (transient ischemic attack) G45.9 15+ YRS AGO, NO RESIDUAL Toe amputee Z89.429 Troponin I above reference range R74.8 Type 2 diabetes mellitus with diabetic polyneuropathy E11.42 Vitamin D deficiency E55.9 Wears dentures Z97.2 Wears glasses Z97.3 Past Surgical History Past Surgical History (Updated 12/04/23 @ 00:02 by Background Daemon) History of aortic valve replacement Z95.2 History of cholecystectomy Z90.49 History of hip surgery Z98.890 History of permanent cardiac pacemaker placement Z95.0 History of transmetatarsal amputation of right foot Z89.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 Hx of cardiac cath Z98.890 07/2020, [facility] Presence of right artificial hip joint Z96.641 Surgical History: arthroscopy, knee (left), cholecystectomy, total hip arthroplasty (right x 2) and - (s/p right 4th toe amputation) Family History Summary Family History Other Cancer Diabetes Social History Smoking History Smoking Status: Former smoker Years Smokin Packs Smoked per Day: 1 (stopped about 4 years ago) Alcohol Use Alcohol Usage: No Occupation Occupation (List type of work in comments):: Retired Social Environment Status Marital Status: Current Living Arrangements Living Environment:: Alone Safety Do you feel safe in your surroundings?: Yes Assistance Do you need any assistance at home?: no Review of Systems Review of Systems Hints Review of Present Symptoms: Reports Shortness of Breath with Exertion, Dizziness/Lightheadedness, Fatigue, Appetite - Normal, Appetite - Special Diet and Sleep - Normal; Denies Shortness of Breath at Rest, PVD, Operative Discomfort, Angina, Wound Healing, Heart Arrhythmia/Irregularities or Sexual Changes Pain Is Patient Pain Free?: Yes Risk Factor Assessment Chief Complaint Chief Complaint: S/P AVR Vital Signs Blood Pressure: 134/74 Pulse Pulse Rate: 92 Diabetes Diabetic History: Type II Obesity Height: 6 ft 1 in Weight:: 220 lb Weight in Pounds: 220.0 lbs Body Mass Index (BMI): 29.0 Nutritional Referral for Obesity: No Risk Stratification Risk Guidelines: Moderate Risk: Risk Factor for Smoking, Risk Factor for Dyslipidemia and Risk Factor for Sedentary Lifestyle and Highest Risk: Risk Factor for Diabetes, Risk Factor for Obesity, Risk Factor for Hypertension and Risk Factor for Depression For Smoking Smoking Risk Guidelines For Dyslipidemia Dyslipidemia Risk Guidelines For Diabetes Mellitus Diabetes Risk Guidelines For Obesity/Overweight Obesity/Overweight Risk Guidelines For Hypertension Hypertension Risk Guidelines For Sedentary Lifestyle Sedentary Lifestyle Risk Guidelines For Depression Depression Risk Guidelines Family History Family History Other Cancer Diabetes Motivation Motivation to Participate On a scale of 1 to 10, how prepared are you to commit to attending program?: 6 What do you see as barriers to successfully being able to complete the program?: no What do you see as the benefits of succesfully completing the program? In other words, what do you hope to get out of participating in the program?: more energy Are there issues you are dealing with that will interfere with completing the program?: no Do you have a spouse or signficant other, family or friends who will help support you to complete the program?: yes
[2024-01-16 09:57] VITALS: BP 134/74; PULSE 92
--- NOTE | 2024-01-16 09:57 | PCM.CR.ITP ---
Diagnosis General Information Admitting Diagnosis: s/p AVR Personal Learning Style:: Audio/Visual Stage of change r/t lifestyle modifications:: Contemplation Gave educational material for:: Treating Heart Disease, How The Heart Works, What it means to have Heart Disease, How Coronary Artery Disease is Diagnosed, Heart Procedures, What Heart Medications Do, Risk Factors & Modifications, Living an Active Life, Nutrition, Emotions & Heart Disease, Stress Management & Relaxation and Sleep Disorders & Heart Disease Education/Goals Cardiac Rehabilitation Goals Personal Goals: Initial Assessment: Improve management of stress and emotions, Improve energy level, Improve knowledge of cardiac disease, Improve muscle strength and endurance and Improve diet and eating habits (eat healthier) Scale for measuring improvement of personal goals Diagnosis & Disease Process Outcomes/Goals: Pt IDs own risk factors & lifestyle modifications by Session 10, Verbalizes symptoms of angina & response by session 3., Pt independently manages and Other Additional Outcomes/Goals: Plan/Interventions: Assist Pt to ID & engage in lifestyle modification to reduce CVD risk, Instruct on individual risk factors, Review symptoms of angina & emergency actions, Review secondary diagnosis & identify educational needs. and Other see comment 30 day Reassessments:: Not Met 30 day Reassessments:: Not Met 30 day Reassessments:: Not Met 30 day Reassessments:: Not Met Final Reassessments:: Not Met Safety Referral to Physical Therapy: No Referral to [facility] Case Management: No Fall Risk Assessed:: Yes Assistive Devices:: None Exercise - Initial Assessment Visit Date of Eval: 01/16/24 (initial eval ) Mets: Pre-: >3 METS for 30 minutes by discharge, >5 METS for 30 minutes by discharge, >7 METS for 30 minutes by discharge and Unable to meet goal due to: (see comment below) Physician Prescribed Exercise Modalities: Treadmill, Rower, Airdyne, NuStep, SciFit and Lateral [place] Frequency: 3x/week for 12 weeks [36 sessions] Intensity: 60-80% of age predicted maximum heart rate reserve Duration: 30 - 45 minutes Current METSs:: 3 Target Heart Rate:: 99-114 Resting Blood Pressure: 134/74 EKG Type: SR H/O BBB, complete heart block Outcomes & Goals Goals:: Verbalizes understanding of THR, RPE & goal METS by session 6, Documents in home exercise log/reports 30 min aerobic 5 day/wk by DC, Demonstrates accurate pulse taking by DC and Other additional outcome/goals: see below Intervention & Plan Exercise Program Goals: Instruct on personal THR & RPE, Instruct on MET level & personal MET goal, Show patient to take own pulse /validate performance until accurate, Instruct on home exercise and Other additional plan/int Physical Activity Home Exercise Physical Activity - Home Exercise: Safe Exercise, Warm-up, Self-monitoring, Cool-Down, Home Exercise > 30 min Daily and Sitting Time <3 hours/daily Outcomes & Goals Outcomes/Goals: Demonstrates correct Warm-up/exercise Cool-Down (S3) if = 2.5 METs, Verbalizes symptoms of exercise intolerance by Session 3 (S3), Demonstrate safe equipment use (S3) & follows exercise prescrition (6) and Other: See below Intervention & Plan Plan/Intervention: Instruct warm-up & cool-down if exercising at > 2 METs, Instruct on symptoms of exercise intolerance & actions to take, Instruct & monitor on saf, Assess intial functional capacity & safety risk and Other See below Nutrition - Initial Assessment Program Goals Nutrition Program Goals Patient has diagnosis of Hyperlipidemia (ICD E78)?: No Visit Date of Eval: 01/16/24 (initial eval ) Cholesterol/Lipids (Other Core Measures) Determine presence & major risk factors that modify LDL goal: Cigarette smoking, Hypertension or hypertensive medication, Low HDL cholesterol <40 mg/dL*, Family history of premature CHD in Male < 55 years: female <65 yearsFa and Age men > 45 years; women >/= 55 years Outcomes/Goals: Pt IDs own risk factors & lifestyle modifications by Session 10, Verbalizes symptoms of angina & response by session 3., Pt independently manages and Other Additional Outcomes/Goals: Intervention/Plan: Advocate for lipid panel cholesterol medication if applicable, Instruct on personal lipid levels & lipid goals/NCEP guidelines, Instruct on cholesterol and Other additional plan/int Referral to dietitian:: No Diabetes (Other Core Measures) Diabetes Type: Diagnosis Type 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 E11 Insulin dependent injection/pump?: No Non-Insulin Dependent?: Yes Do you monitor your blood sugar at home?: Yes Referral to Diabetic Clinic:: No Outcomes/Goals:: Able to state symptoms of, Able to state, Able to state and Other additional Intervention/Plan:: Instruct on, Refer to, Instruct on and Other Weight Mgt (Other Care) Height: 6 ft 1 in Weight:: 220 lb BMI: 29.0 Diagnosis Overweight/Obesity BMI> 30% ICD-10 E66: No Diagnosis High BMI/Morbid Obesity BMI> 35% ICD-10 Z68: No Outcomes/Goals: Pt sets, maintains & shows weight loss goal & trend during rehab and Other additional outcomes/goals Intervention/Plan: Instruct on ideal BMI & set weight loss goal w/patient, Assist pt to ID & incorporate diet changes for weight loss by S9, Refer to Structured Weight Loss program as appropriate, Encourage goal of using 250-300dcal per session for weight loss and Other additional plan/interventions Healthy Eating Habits Will attend diet classes:: Yes Outcomes/Goals:: Consume diet rich in vegs,fruits,whole grain/high fiber,fish,lean meat, Limit sat/trans fats,cholesterol & added salts & sugars and Other additional outcome/goals: Intervention/Plan:: Assess current eating habits and Other Additional plan/interventions Education Gave educational materials for:: Signs & symptoms of hypoglycemia, Signs & symptoms of hyperglycemia, Relate diabetes to coronary artery disease and Healthy eating Core - Initial Assessment Visit Date of Eval: 01/16/24 (initial eval ) Medication Compliance Preventative Medication(s):: Aspirin and Beta romulo H/O mental health issues: depression, anxiety, or addiction?: Yes Doesn?t believe in the benefits of treatment?: No Believes medications are unnecessary or harmful?: No Has a concern about medication side effects?: No Expresses concern over the cost of medications?: No Outcomes/Goals: Verbalizes medications,desired effect & common side effects @ DC, Pt self-reports following medication regimen, Keeps card in wallet w/medications listed by DC and Other additional outcome/goals: Interventions/plans: Instruct on medication effects & side effects, Review medication list w/patient every two weeks, Instruct importance of taking meds as ordered & assist problem solving and Other additional Tobacco Use Tobacco Use: Non-smoker How long ago did you quit using tobacco products?: Greater than or equal to 6 months ago Years Smokin Do you use smokeless tobacco?: No Interventions/plan: Instruct on effects of smoking & provide smoking cessation resource, Assist pt to set quit date & provide encouragement, Assist pt to develop strategies to achieve/maintain quit date, Assist pt w/nicotine replacement & medication for cessation success and Other additional plan/interventions Hypertension Hypertension Diagnosis:: Hypertension ICD-10 I10 Resting Blood Pressure:: 134/74 [employer] Hypertension Guidelines Outcomes/Goals: Able to verbalize/achieve optimal blood pressure <130/80, Incorporates diet changes & exercise for blood pressure control by DC and Other additional outcomes/goals Interventions/plan: Instruct on optimal blood pressure, hypertension & medications, Instruct on effects of sodium, alcohol, stress, exercise &hypertension and Other additional plan/interventions Tobacco Cessation Referral Smoking Cessation Referral:: No Individual Education/Counseling:: No Education Schedule Given:: Yes Psychosocial - Initial Assess VIsit Date of Eval: 01/16/24 (initial eval ) History of previous Mental disease:: Yes History of Emotional Disorders: Depression (bipolar and is on meds.) Target Goals Target Goals Outcomes/Goals: See list Psychosocial Outcomes/Goals:: ID's personal stressors & 2 strategies to manage stress by discharge and Other Additional outcome/goals: Intervention/Plan: See List Interventions/Plan:: Assess stressors,coping strategies & signs of derpression on admission, Instruct/assist pt to develop coping & personal stress Mgt strategies, Refer to Behavioral Health if appropriate, Refer to Physician if appropriate, Instruct patient to recognize signs & symptoms of depression, Instruct patient to recog and Other additional plan/intervention Patient Health Questionnaire PHQ-9 Screening Initial Assessment: 1. Little interest or pleasure in doing things: More than half the days 2. Feeling down, depressed, or hopeless: Several days 3. Trouble falling or staying asleep, or sleeping too much: More than half the days 4. Feeling tired or having little energy: Several days 5. Poor appetite or overeating: Several days 6. Feeling bad about yourself -- or that you are a failure or have let yourself or your family down: More than half the days 7. Trouble concentrating on things, such as reading the newspaper or watching television: More than half the days 8. Moving or speaking so slowly that other people could have noticed. Or the opposite - being so fidgety or restless that you have been moving around a lot more than usual: More than half the days 9. Thoughts that you would be better off , or of hurting yourself in some way: Not at all How difficult have these problems made it for you to do your work, take care of things at home, or get along with other people?: Not difficult at all Total Score: 13 LISBET-Q SV Test Statements CAD is a disease of the arteries in the heart: False Examples of risk factors for heart disease: False Angina is chest pain or discomfort: False The benefits of resistance training include: False Eating more meat and dairy products: False Anti-platelet medications such as aspirin are important: True The only effective way to manage stress: True An exercise warm-up slowly increases heart rate: I Don't Know Prepared, processed foods usually have high sodium: I Don't Know Depression is common after a heart attack: I Don't Know The statin medications lower cholesterol: I Don't Know To control blood pressure, lower the amount of sodium: I Don't Know If someone gets chest discomfort during walking: I Don't Know Transfats are partially hydrogenated vegetable oils: I Don't Know Sleep apnea that is not treated increases the risk: I Don't Know To control cholesterol, one should become a vegetarian: I Don't Know Someone knows if he/she is exercising at the right level: I Don't Know Diabetes cannot be prevented with exercise & health eating: I Don't Know Stress is a large risk for heart attack: I Don't Know A diet that can help lower blood pressure is rich in: I Don't Know Total Score Total Correct Responses: 3 Self-Efficacy 6-Item Scale Initial Assessment: We would like to know how confident you are in doing certain activities. Please select your confidence level for: Fatigue Select Number: 5 Physical Discomfort or Pain Select Number: 5 Emotional Distress Select Number: 5 Other Symptoms or Health Problems Select Number: 5 Different Tasks and Activities Select Number: 5 Medication Select Number: 5 Total Score:: 5 Nutrition Survey Nutrition Survey Instructions Scoring Instructions Nutrition Survey Initial: Have you lost >10 lbs over the past 2 months without trying?: Yes Are you following a special diet at home for diabetes, low fat, or low salt?: Yes Are you interested in meeting with a dietitian for help understanding your diet?: No Do you eat less than 3 meals a day?: No Do you eat fatty meats (villegas, sausage, ribs, etc), fried foods, desserts, large amounts of salad dressings, margarine, butter, or cheese most days?: No Do you have food allergies? [Enter types in comment field]: No Do you eat in restaurants more than 3 times a week?: No Do you season food with salt, seasoning salt, or garlic salt?: No Do you used canned, boxed, frozen meals, or soups, seasoning packets?: No Total Score:: 2 Exercise - Final/Discharge Physician Prescribed Exercise Modalities: Treadmill, Rower, Airdyne, NuStep, SciFit and Lateral [place] Frequency: 3x/week for 12 weeks [36 sessions] Intensity: 60-80% of age predicted maximum heart rate reserve Current METSs:: 3 Target Heart Rate:: 99-114 Nutrition - 30-Day Assessment Weight Mgt (Other Care) Height: 6 ft 1 in Weight:: 220 lb BMI: 29.0 Nutrition - 60-Day Assessment Weight Mgt (Other Care) Height: 6 ft 1 in Weight:: 220 lb BMI: 29.0 Core - 30-Day Assessment Tobacco Use Years Smokin Core - Final Assessment Hypertension Resting Blood Pressure:: 134/74 [employer] Hypertension Guidelines Core - 60-Day Assessment Hypertension Resting Blood Pressure:: 134/74 [employer] Hypertension Guidelines Psychosocial - 30-Day Assess Target Goals Target Goals Psychosocial - 60-Day Assess Target Goals Target Goals Psychosocial - 90-Day Assess Target Goals Target Goals Psychosocial - Final Assessmen Target Goals Target Goals Nutrition - 90-Day Assessment Weight Mgt (Other Care) Height: 6 ft 1 in Weight:: 220 lb BMI: 29.0 Nutrition - Final Assessment Program Goals Patient has diagnosis of Hyperlipidemia (ICD E78)?: No Weight Mgt (Other Care) Height: 6 ft 1 in Weight:: 220 lb BMI: 29.0
[2024-01-16 09:59] VITALS: BP 134/74
[2024-01-16 10:33] VITALS: BP 134/74; BMI 29.0
[2024-01-16 10:35] VITALS: BMI 29.0
== END | disposition home or self-care (01) ==
DX: Z95.2 Presence of prosthetic heart valve (principal); Z89.431 Acquired absence of right foot; E11.9 Type 2 diabetes mellitus without complications; I10 Essential (primary) hypertension; F41.9 Anxiety disorder, unspecified; F32.9 Major depressive disorder, single episode, unspecified; Z87.891 Personal history of nicotine dependence; B19.20 Unspecified viral hepatitis C without hepatic coma; E78.5 Hyperlipidemia, unspecified; G47.30 Sleep apnea, unspecified; Z86.73 Personal history of transient ischemic attack (TIA), and cerebral infarction without residual deficits; Z90.49 Acquired absence of other specified parts of digestive tract; Z98.890 Other specified postprocedural states; Z95.0 Presence of cardiac pacemaker; Z96.641 Presence of right artificial hip joint; R06.02 Shortness of breath; R42 Dizziness and giddiness; R53.83 Other fatigue

== ENCOUNTER 2024-02-04 10:15 | Outpatient (RCR) | payer OTHER, SELFPAY ==
[2024-01-16 10:33] VITALS: BMI 29.0
== END 2024-02-05 23:59 ==
LOC: CR 10:15
DX: I35.0 Nonrheumatic aortic (valve) stenosis (principal)
CPT/HCPCS: 93798

== ENCOUNTER → 2024-02-15 | Outpatient (CLI) | payer OTHER, SELFPAY ==
[2024-01-16 10:33] VITALS: BMI 29.0
[2024-02-15 09:27] VITALS: BMI 27.8
--- NOTE | 2024-02-15 11:19 | CT_ITS ---
INDICATION: RECHECK THORACIC ANEURSYM EXAMINATION: CT CHEST WITHOUT CONTRAST - CT Chest W/O Contrast Injection TECHNIQUE: Helically acquired images were obtained of the chest. A radiation dose optimization technique was used for this scan. IV Contrast dosage and agent: None. COMPARISON: None. FINDINGS: Status post median sternotomy. Left subclavian pacemaker. Suspect aortic valve prosthesis. LUNGS, PLEURA AND LARGE AIRWAYS: Some left upper lobe scarring. No noncalcified nodule or mass. No pleural effusion or thickening. No pneumothorax. THYROID: No thyroid lesions. HEART AND PERICARDIUM: Heart size is normal. Small pericardial effusion. CORONARY ARTERIES: Coronary artery calcification VESSELS: Thoracic aorta is not dilated. MEDIASTINUM AND JH: No mediastinal or hilar adenopathy. Postoperative changes in the anterior mediastinum. Esophagus is unremarkable. No hiatal hernia. UPPER ABDOMEN: The liver with an irregular contour consistent with cirrhosis. Suspect splenomegaly likely from portal hypertension. BONES: No suspicious lytic or blastic abnormality. CT/Chest without Contrast IMPRESSION: 1. No thoracic aortic aneurysm. 2. Status post median sternotomy with aortic valve replacement with scarring in the anterior mediastinum. 3. Cirrhosis with splenomegaly likely secondary to portal hypertension. Electronically Signed: David Medeiros MD at 23:24 EDT ,
== END | disposition home or self-care (01) ==
LOC: CT 11:16
PROVIDERS: Referring Provider Family Medicine; Visit Provider Family Medicine
DX: I71.20 Thoracic aortic aneurysm, without rupture, unspecified (principal)
CPT/HCPCS: 71250

== ENCOUNTER 2024-03-07 10:15 | Outpatient (RCR) | payer OTHER, SELFPAY ==
[2024-01-16 10:33] VITALS: BMI 29.0
--- NOTE | 2024-02-15 09:17 | PCM.CR.ITP ---
Diagnosis Diagnosis & Disease Process Outcomes/Goals: Pt IDs own risk factors & lifestyle modifications by Session 10, Verbalizes symptoms of angina & response by session 3. and Pt independently manages Nutrition - Initial Assessment Program Goals Nutrition Program Goals Patient has diagnosis of Hyperlipidemia (ICD E78)?: Yes Visit Date of Eval: 02/15/24 Session #:: 10 Cholesterol/Lipids (Other Core Measures) Determine presence & major risk factors that modify LDL goal: Hypertension or hypertensive medication and Age men > 45 years; women >/= 55 years Outcomes/Goals: Pt IDs own risk factors & lifestyle modifications by Session 10, Verbalizes symptoms of angina & response by session 3. and Pt independently manages Intervention/Plan: Instruct on personal lipid levels & lipid goals/NCEP guidelines and Instruct on cholesterol Diabetes (Other Core Measures) Diabetes Type: Diagnosis Type II ICD-10 E11 Insulin dependent injection/pump?: Yes Non-Insulin Dependent?: Yes Do you monitor your blood sugar at home?: Yes Referral to Diabetic Clinic:: Yes Outcomes/Goals:: Able to state symptoms of, Able to state and Able to state Intervention/Plan:: Instruct on, Refer to and Instruct on Weight Mgt (Other Care) Not Applicable: Yes Height: 6 ft 1 in Weight:: 211 lb 8 oz BMI: 27.8 Diagnosis Overweight/Obesity BMI> 30% ICD-10 E66: No Diagnosis High BMI/Morbid Obesity BMI> 35% ICD-10 Z68: No Outcomes/Goals: Pt sets, maintains & shows weight loss goal & trend during rehab Intervention/Plan: Instruct on ideal BMI & set weight loss goal w/patient Healthy Eating Habits Will attend diet classes:: Yes Outcomes/Goals:: Consume diet rich in vegs,fruits,whole grain/high fiber,fish,lean meat and Limit sat/trans fats,cholesterol & added salts & sugars Intervention/Plan:: Assess current eating habits Education Gave educational materials for:: Signs & symptoms of hypoglycemia, Signs & symptoms of hyperglycemia, Relate diabetes to coronary artery disease and Healthy eating Psychosocial - Initial Assess VIsit Not Applicable: Yes Target Goals Target Goals Referral to Behavioral Health PS - Interventions: Yes: Attend Stress Management Classes and No: Referral to Behavioral Health if PHQ-9 score >9:, No: Referral to [facility] and No: Referral to Physician if PHQ-9 if score is 5-9: Patient Health Questionnaire PHQ-9 Screening 30-Day Re-eval Assessment: 1. Little interest or pleasure in doing things: More than half the days 2. Feeling down, depressed, or hopeless: Several days 3. Trouble falling or staying asleep, or sleeping too much: Several days 4. Feeling tired or having little energy: Not at all 5. Poor appetite or overeating: Not at all 6. Feeling bad about yourself -- or that you are a failure or have let yourself or your family down: More than half the days 7. Trouble concentrating on things, such as reading the newspaper or watching television: More than half the days 8. Moving or speaking so slowly that other people could have noticed. Or the opposite - being so fidgety or restless that you have been moving around a lot more than usual: Not at all 9. Thoughts that you would be better off , or of hurting yourself in some way: Not at all How difficult have these problems made it for you to do your work, take care of things at home, or get along with other people?: Not difficult at all Total Score: 8 Self-Efficacy 6-Item Scale 30-Day Re-eval Assessment: We would like to know how confident you are in doing certain activities. Please select your confidence level for: Fatigue Select Number: 6 Physical Discomfort or Pain Select Number: 6 Emotional Distress Select Number: 5 Other Symptoms or Health Problems Select Number: 6 Different Tasks and Activities Select Number: 7 Medication Select Number: 7 Total Score:: 6 Nutrition Survey Nutrition Survey Instructions Scoring Instructions Exercise - 30-day Assessment Visit Date of Eval: 02/15/24 Session #:: 10 Physician Prescribed Exercise Modalities: Treadmill, Airdyne and NuStep Frequency: 3x/week for 12 weeks [36 sessions] Intensity: 60-80% of age predicted maximum heart rate reserve Duration: 30 - 45 minutes Current METSs:: 3.0 Target Heart Rate:: 99-114 Current RPE:: 13-14 Maximum Excercise HR:: 103 Resting Blood Pressure: 110/70 Maximum Exercise Blood Pressure: 120/70 EKG Type: NSR to Sinus Tach w/ rare PVCs, PACs, rate dependent BBB. Current Physical Activity or Exercising minutes: 48:36 Outcomes & Goals Goals:: Verbalizes understanding of THR, RPE & goal METS by session 6, Documents in home exercise log/reports 30 min aerobic 5 day/wk by DC and Demonstrates accurate pulse taking by DC Intervention & Plan Exercise Program Goals: Instruct on personal THR & RPE, Instruct on MET level & personal MET goal, Show patient to take own pulse /validate performance until accurate and Instruct on home exercise 30-day Reassessments 30 day Reassessments:: Met Physical Activity Home Exercise Physical Activity - Home Exercise: Safe Exercise, Warm-up, Self-monitoring, Cool-Down, Home Exercise > 30 min Daily and Sitting Time <3 hours/daily Outcomes & Goals Outcomes/Goals: Demonstrates correct Warm-up/exercise Cool-Down (S3) if = 2.5 METs, Verbalizes symptoms of exercise intolerance by Session 3 (S3) and Demonstrate safe equipment use (S3) & follows exercise prescrition (6) Intervention & Plan Plan/Intervention: Instruct warm-up & cool-down if exercising at > 2 METs, Instruct on symptoms of exercise intolerance & actions to take, Instruct & monitor on saf and Assess intial functional capacity & safety risk 30-day Reassessments 30 day Reassessments:: Met Nutrition - 30-Day Assessment Program Goals Nutrition Program Goals Patient has diagnosis of Hyperlipidemia (ICD E78)?: Yes Visit Date of Eval: 02/15/24 Session #:: 10 Cholesterol/Lipids (Other Core Measures) Determine presence & major risk factors that modify LDL goal: Hypertension or hypertensive medication and Age men > 45 years; women >/= 55 years Outcomes/Goals: Pt IDs own risk factors & lifestyle modifications by Session 10, Verbalizes symptoms of angina & response by session 3. and Pt independently manages Intervention/Plan: Instruct on personal lipid levels & lipid goals/NCEP guidelines and Instruct on cholesterol Referral to dietitian:: Yes 30-day Reassessments:: Progressing Diabetes (Other Core Measures) Diabetes Type: Diagnosis Type II ICD-10 E11 Insulin dependent injection/pump?: Yes Non-Insulin Dependent?: Yes Do you monitor your blood sugar at home?: Yes Referral to Diabetic Clinic:: Yes Outcomes/Goals:: Able to state symptoms of, Able to state and Able to state Intervention/Plan:: Instruct on, Refer to and Instruct on 30-day Reassessments:: Progressing Weight Mgt (Other Care) Not Applicable: Yes Height: 6 ft 1 in Weight:: 211 lb 8 oz BMI: 27.8 Diagnosis Overweight/Obesity BMI> 30% ICD-10 E66: No Diagnosis High BMI/Morbid Obesity BMI> 35% ICD-10 Z68: No Outcomes/Goals: Pt sets, maintains & shows weight loss goal & trend during rehab Intervention/Plan: Instruct on ideal BMI & set weight loss goal w/patient, Assist pt to ID & incorporate diet changes for weight loss by S9 and Encourage goal of using 250-300dcal per session for weight loss 30 day Reassessments:: Progressing Healthy Eating Habits Will attend diet classes:: Yes Outcomes/Goals:: Consume diet rich in vegs,fruits,whole grain/high fiber,fish,lean meat and Limit sat/trans fats,cholesterol & added salts & sugars Intervention/Plan:: Assess current eating habits 30-day Reassessments:: Progressing Education Gave educational materials for:: Signs & symptoms of hypoglycemia, Signs & symptoms of hyperglycemia, Relate diabetes to coronary artery disease and Healthy eating Nutrition - 60-Day Assessment Weight Mgt (Other Care) Height: 6 ft 1 in Weight:: 211 lb 8 oz BMI: 27.8 Core - 30-Day Assessment Visit Date of Eval: 02/15/24 Medication Compliance Preventative Medication(s):: Aspirin H/O mental health issues: depression, anxiety, or addiction?: No Doesn?t believe in the benefits of treatment?: No Believes medications are unnecessary or harmful?: No Has a concern about medication side effects?: No Expresses concern over the cost of medications?: No Outcomes/Goals: Verbalizes medications,desired effect & common side effects @ DC, Pt self-reports following medication regimen and Keeps card in wallet w/medications listed by DC Interventions/plans: Instruct on medication effects & side effects, Review medication list w/patient every two weeks and Instruct importance of taking meds as ordered & assist problem solving 30-day Reassessments:: Progressing Tobacco Use Tobacco Use: Non-smoker Do you use smokeless tobacco?: No Hypertension Hypertension Diagnosis:: Hypertension ICD-10 I10 Resting Blood Pressure:: 110/70 [place] [employer] Hypertension Guidelines Peak Exercise Blood Pressure:: 120/70 Outcomes/Goals: Able to verbalize/achieve optimal blood pressure <130/80 and Incorporates diet changes & exercise for blood pressure control by DC Interventions/plan: Instruct on optimal blood pressure, hypertension & medications and Instruct on effects of sodium, alcohol, stress, exercise &hypertension 30 day Reassessments:: Met Tobacco Cessation Referral Education Schedule Given:: Yes Psychosocial - 30-Day Assess VIsit Date of Eval: 02/15/24 Session #:: 10 Not Applicable: Yes History of previous Mental disease:: No Target Goals Target Goals Psychosocial Test Tool Used:: PHQ-9 Questionnaire phq-9 Severity Referral to Behavioral Health PS - Interventions: Yes: Attend Stress Management Classes and No: Referral to Behavioral Health if PHQ-9 score >9:, No: Referral to [facility] and No: Referral to Physician if PHQ-9 if score is 5-9: Outcomes/Goals: See list Psychosocial Outcomes/Goals:: ID's personal stressors & 2 strategies to manage stress by discharge Intervention/Plan: See List Interventions/Plan:: Assess stressors,coping strategies & signs of derpression on admission, Instruct/assist pt to develop coping & personal stress Mgt strategies, Instruct patient to recognize signs & symptoms of depression and Instruct patient to recog 30-day Reassessments: 30 day Reassessments:: Progressing Psychosocial - 60-Day Assess Target Goals Target Goals Referral to Behavioral Health PS - Interventions: Yes: Attend Stress Management Classes and No: Referral to Behavioral Health if PHQ-9 score >9:, No: Referral to [facility] and No: Referral to Physician if PHQ-9 if score is 5-9: Outcomes/Goals: See list Psychosocial Outcomes/Goals:: ID's personal stressors & 2 strategies to manage stress by discharge Psychosocial - 90-Day Assess Target Goals Target Goals Referral to Behavioral Health PS - Interventions: Yes: Attend Stress Management Classes and No: Referral to Behavioral Health if PHQ-9 score >9:, No: Referral to [facility] and No: Referral to Physician if PHQ-9 if score is 5-9: Psychosocial - Final Assessmen Target Goals Target Goals Referral to Behavioral Health PS - Interventions: Yes: Attend Stress Management Classes and No: Referral to Behavioral Health if PHQ-9 score >9:, No: Referral to [facility] and No: Referral to Physician if PHQ-9 if score is 5-9: Nutrition - 90-Day Assessment Weight Mgt (Other Care) Height: 6 ft 1 in Weight:: 211 lb 8 oz BMI: 27.8 Nutrition - Final Assessment Program Goals Patient has diagnosis of Hyperlipidemia (ICD E78)?: Yes Weight Mgt (Other Care) Height: 6 ft 1 in Weight:: 211 lb 8 oz BMI: 27.8
[2024-02-15 09:21] VITALS: BP 110/70
[2024-02-15 09:27] VITALS: BMI 27.8
[2024-02-15 09:48] VITALS: BP 110/70
== END 2024-03-07 23:59 ==
LOC: CR 10:15
DX: I10 Essential (primary) hypertension (principal); I35.0 Nonrheumatic aortic (valve) stenosis
CPT/HCPCS: 93798

== ENCOUNTER 2024-04-04 10:15 | Outpatient (RCR) | payer OTHER, SELFPAY ==
[2024-02-15 09:27] VITALS: BMI 27.8
[2024-03-08 00:49] VITALS: BP 110/70
--- NOTE | 2024-03-14 08:38 | PCM.CR.ITP ---
Exercise - Initial Assessment Physician Prescribed Exercise Modalities: Bethany Dao AD-7 and SciFit Stepper Nutrition - Initial Assessment Weight Mgt (Other Care) Height: 6 ft 1 in Weight:: 207 lb (Down from initial 220) BMI: 27.3 Core - Initial Assessment Hypertension Resting Blood Pressure:: 102/68 [place] [employer] Hypertension Guidelines Psychosocial - Initial Assess Target Goals Target Goals Referral to Behavioral Health PS - Interventions: Yes: Referral to Physician if PHQ-9 if score is 5-9: and Yes: Attend Stress Management Classes and No: Referral to Behavioral Health if PHQ-9 score >9: and No: Referral to [facility] Patient Health Questionnaire PHQ-9 Screening 60-Day Re-eval Assessment: 1. Little interest or pleasure in doing things: Several days 2. Feeling down, depressed, or hopeless: Not at all 3. Trouble falling or staying asleep, or sleeping too much: More than half the days 4. Feeling tired or having little energy: Several days 5. Poor appetite or overeating: Several days 6. Feeling bad about yourself -- or that you are a failure or have let yourself or your family down: More than half the days 7. Trouble concentrating on things, such as reading the newspaper or watching television: More than half the days 8. Moving or speaking so slowly that other people could have noticed. Or the opposite - being so fidgety or restless that you have been moving around a lot more than usual: More than half the days 9. Thoughts that you would be better off , or of hurting yourself in some way: Not at all How difficult have these problems made it for you to do your work, take care of things at home, or get along with other people?: Not difficult at all Total Score: 11 Self-Efficacy 6-Item Scale 60-Day Re-eval Assessment: We would like to know how confident you are in doing certain activities. Please select your confidence level for: Fatigue Select Number: 6 Physical Discomfort or Pain Select Number: 6 Emotional Distress Select Number: 6 Other Symptoms or Health Problems Select Number: 6 Different Tasks and Activities Select Number: 6 Medication Select Number: 6 Total Score:: 6 Nutrition Survey Nutrition Survey Instructions Scoring Instructions Exercise - 30-day Assessment Physician Prescribed Exercise Modalities: Bethany Dao AD-7 and SciFit Stepper Exercise - 60-day Assessment Visit Date of Eval: 03/14/24 Session #:: 19 Physician Prescribed Exercise Modalities: Schwinn Airdyne AD-7 and SciFit Stepper Frequency: 3x/week for 12 weeks [36 sessions] Intensity: 60-80% of age predicted maximum heart rate reserve Duration: 30 - 45 minutes Current METSs:: 3.0 Target Heart Rate:: 99-114 Current RPE:: 13-15 Maximum Excercise HR:: 100 Resting Blood Pressure: 124/74 Maximum Exercise Blood Pressure: 124/74 EKG Type: NSR to sinus tach w/ mulitfocal PVCs, rate dependent BBB Current Physical Activity or Exercising minutes: 36:36 Outcomes & Goals Goals:: Verbalizes understanding of THR, RPE & goal METS by session 6, Documents in home exercise log/reports 30 min aerobic 5 day/wk by DC and Demonstrates accurate pulse taking by DC Intervention & Plan Exercise Program Goals: Instruct on personal THR & RPE, Instruct on MET level & personal MET goal, Show patient to take own pulse /validate performance until accurate and Instruct on home exercise 30-day Reassessments 30 day Reassessments:: Progressing Physical Activity Home Exercise Physical Activity - Home Exercise: Safe Exercise, Warm-up, Self-monitoring, Cool-Down, Home Exercise > 30 min Daily and Sitting Time <3 hours/daily Outcomes & Goals Outcomes/Goals: Demonstrates correct Warm-up/exercise Cool-Down (S3) if = 2.5 METs, Verbalizes symptoms of exercise intolerance by Session 3 (S3) and Demonstrate safe equipment use (S3) & follows exercise prescrition (6) Intervention & Plan Plan/Intervention: Instruct warm-up & cool-down if exercising at > 2 METs, Instruct on symptoms of exercise intolerance & actions to take, Instruct & monitor on saf and Assess intial functional capacity & safety risk 30-day Reassessments 30 day Reassessments:: Progressing Exercise - 90-day Assessment Physician Prescribed Exercise Modalities: Schwinn Airdyne AD-7 and SciFit Stepper Exercise - Final/Discharge Physician Prescribed Exercise Modalities: Schwinn Airdyne AD-7 and SciFit Stepper Nutrition - 30-Day Assessment Weight Mgt (Other Care) Height: 6 ft 1 in Weight:: 207 lb (Down from initial 220) BMI: 27.3 Nutrition - 60-Day Assessment Program Goals Nutrition Program Goals Patient has diagnosis of Hyperlipidemia (ICD E78)?: Yes Visit Date of Eval: 03/14/24 Session #:: 19 Cholesterol/Lipids (Other Core Measures) Total Triglycerides (mg/dL): 100 Total Cholesterol: 91 LDL Cholesterol (mg/dL): 37 HDL Cholesterol (mg/dL): 34 Determine presence & major risk factors that modify LDL goal: Hypertension or hypertensive medication, Family history of premature CHD in Male < 55 years: female <65 yearsFa and Age men > 45 years; women >/= 55 years Outcomes/Goals: Verbalizes symptoms of angina & response by session 3. Intervention/Plan: Instruct on personal lipid levels & lipid goals/NCEP guidelines and Instruct on cholesterol Referral to dietitian:: Yes 30-day Reassessments:: Progressing Diabetes (Other Core Measures) Diabetes Type: Diagnosis Type II ICD-10 E11 Insulin dependent injection/pump?: Yes Non-Insulin Dependent?: Yes Do you monitor your blood sugar at home?: Yes Referral to Diabetic Clinic:: Yes Outcomes/Goals:: Able to state symptoms of, Able to state and Able to state Intervention/Plan:: Instruct on, Refer to and Instruct on 30-day Reassessments:: Progressing Weight Mgt (Other Care) Height: 6 ft 1 in Weight:: 207 lb (Down from initial 220) BMI: 27.3 Diagnosis Overweight/Obesity BMI> 30% ICD-10 E66: No Diagnosis High BMI/Morbid Obesity BMI> 35% ICD-10 Z68: No Outcomes/Goals: Pt sets, maintains & shows weight loss goal & trend during rehab Intervention/Plan: Instruct on ideal BMI & set weight loss goal w/patient 30 day Reassessments:: Met Healthy Eating Habits Will attend diet classes:: Yes Outcomes/Goals:: Consume diet rich in vegs,fruits,whole grain/high fiber,fish,lean meat and Limit sat/trans fats,cholesterol & added salts & sugars Intervention/Plan:: Assess current eating habits 30-day Reassessments:: Progressing Education Gave educational materials for:: Signs & symptoms of hypoglycemia, Signs & symptoms of hyperglycemia, Relate diabetes to coronary artery disease and Healthy eating Core - Final Assessment Hypertension Resting Blood Pressure:: 102/68 [place] [employer] Hypertension Guidelines Core - 60-Day Assessment Visit Date of Eval: 03/14/24 Session #:: 19 Medication Compliance Preventative Medication(s):: Aspirin and Beta romulo H/O mental health issues: depression, anxiety, or addiction?: Yes Doesn?t believe in the benefits of treatment?: No Believes medications are unnecessary or harmful?: No Has a concern about medication side effects?: No Expresses concern over the cost of medications?: No Outcomes/Goals: Verbalizes medications,desired effect & common side effects @ DC, Pt self-reports following medication regimen and Keeps card in wallet w/medications listed by DC Interventions/plans: Instruct on medication effects & side effects, Review medication list w/patient every two weeks and Instruct importance of taking meds as ordered & assist problem solving 30-day Reassessments:: Met Tobacco Use Tobacco Use: Non-smoker Hypertension Hypertension Diagnosis:: Hypertension ICD-10 I10 Resting Blood Pressure:: 102/68 [place] [employer] Hypertension Guidelines Peak Exercise Blood Pressure:: 124/74 Outcomes/Goals: Able to verbalize/achieve optimal blood pressure <130/80 and Incorporates diet changes & exercise for blood pressure control by DC Interventions/plan: Instruct on optimal blood pressure, hypertension & medications and Instruct on effects of sodium, alcohol, stress, exercise &hypertension 30 day Reassessments:: Met Tobacco Cessation Referral Smoking Cessation Referral:: No Individual Education/Counseling:: No Education Schedule Given:: Yes Psychosocial - 30-Day Assess Target Goals Target Goals Referral to Behavioral Health PS - Interventions: Yes: Referral to Physician if PHQ-9 if score is 5-9: and Yes: Attend Stress Management Classes and No: Referral to Behavioral Health if PHQ-9 score >9: and No: Referral to [facility] Outcomes/Goals: See list Psychosocial Outcomes/Goals:: ID's personal stressors & 2 strategies to manage stress by discharge Psychosocial - 60-Day Assess VIsit Date of Eval: 03/14/24 Session #:: 19 History of Emotional Disorders: Anxious and Depression Target Goals Target Goals Psychosocial Test Tool Used:: PHQ-9 Questionnaire phq-9 Severity Total Score:: 11 Referral to Behavioral Health PS - Interventions: Yes: Referral to Physician if PHQ-9 if score is 5-9: and Yes: Attend Stress Management Classes and No: Referral to Behavioral Health if PHQ-9 score >9: and No: Referral to [facility] Outcomes/Goals: See list Psychosocial Outcomes/Goals:: ID's personal stressors & 2 strategies to manage stress by discharge Intervention/Plan: See List Interventions/Plan:: Assess stressors,coping strategies & signs of derpression on admission, Instruct/assist pt to develop coping & personal stress Mgt strategies, Instruct patient to recognize signs & symptoms of depression and Instruct patient to recog Comments:: Treated for his anxiety & depression 30-day Reassessments: 30 day Reassessments:: Met Psychosocial - 90-Day Assess Target Goals Target Goals Referral to Behavioral Health PS - Interventions: Yes: Referral to Physician if PHQ-9 if score is 5-9: and Yes: Attend Stress Management Classes and No: Referral to Behavioral Health if PHQ-9 score >9: and No: Referral to [facility] Psychosocial - Final Assessmen Target Goals Target Goals Referral to Behavioral Health PS - Interventions: Yes: Referral to Physician if PHQ-9 if score is 5-9: and Yes: Attend Stress Management Classes and No: Referral to Behavioral Health if PHQ-9 score >9: and No: Referral to [facility] Nutrition - 90-Day Assessment Weight Mgt (Other Care) Height: 6 ft 1 in Weight:: 207 lb (Down from initial 220) BMI: 27.3 Nutrition - Final Assessment Weight Mgt (Other Care) Height: 6 ft 1 in Weight:: 207 lb (Down from initial 220) BMI: 27.3
[2024-03-14 08:42] VITALS: BP 124/74
[2024-03-14 09:09] VITALS: BMI 27.3
[2024-03-14 09:25] VITALS: BP 102/68
== END 2024-04-06 23:59 ==
LOC: CR 10:15
DX: I35.0 Nonrheumatic aortic (valve) stenosis (principal); I10 Essential (primary) hypertension; Z95.3 Presence of xenogenic heart valve
CPT/HCPCS: 93798

== ENCOUNTER 2024-04-28 10:15 | Outpatient (RCR) | payer OTHER, SELFPAY ==
[2024-04-07 00:35] VITALS: BP 102/68; BP 110/70; BP 124/74; BMI 27.8
--- NOTE | 2024-04-14 08:14 | PCM.CR.ITP ---
Exercise - Initial Assessment Physician Prescribed Exercise Modalities: SciFit Stepper and SciFit Lateral Deck Molder Nutrition - Initial Assessment Weight Mgt (Other Care) Height: 6 ft 1 in Weight:: 200 lb 8 oz BMI: 26.4 Psychosocial - Initial Assess Target Goals Target Goals Referral to Behavioral Health PS - Interventions: Yes: Attend Stress Management Classes and No: Referral to Behavioral Health if PHQ-9 score >9:, No: Referral to [facility] and No: Referral to Physician if PHQ-9 if score is 5-9: Patient Health Questionnaire PHQ-9 Screening 90-Day Re-eval Assessment: 1. Little interest or pleasure in doing things: More than half the days 2. Feeling down, depressed, or hopeless: Several days 3. Trouble falling or staying asleep, or sleeping too much: More than half the days 4. Feeling tired or having little energy: Several days 5. Poor appetite or overeating: Several days 6. Feeling bad about yourself -- or that you are a failure or have let yourself or your family down: More than half the days 7. Trouble concentrating on things, such as reading the newspaper or watching television: More than half the days 8. Moving or speaking so slowly that other people could have noticed. Or the opposite - being so fidgety or restless that you have been moving around a lot more than usual: More than half the days 9. Thoughts that you would be better off , or of hurting yourself in some way: Not at all How difficult have these problems made it for you to do your work, take care of things at home, or get along with other people?: Somewhat difficult Total Score: 13 Self-Efficacy 6-Item Scale 90-Day Re-eval Assessment: We would like to know how confident you are in doing certain activities. Please select your confidence level for: Fatigue Select Number: 5 Physical Discomfort or Pain Select Number: 5 Emotional Distress Select Number: 5 Other Symptoms or Health Problems Select Number: 5 Different Tasks and Activities Select Number: 5 Medication Select Number: 5 Total Score:: 5 Nutrition Survey Nutrition Survey Instructions Scoring Instructions Exercise - 30-day Assessment Physician Prescribed Exercise Modalities: SciFit Stepper and SciFit Lateral Deck Molder Exercise - 60-day Assessment Physician Prescribed Exercise Modalities: SciFit Stepper and SciFit Lateral Deck Molder Exercise - 90-day Assessment Visit Date of Eval: 04/14/24 Session #:: 29 Physician Prescribed Exercise Modalities: SciFit Stepper and SciFit Lateral Brooten Frequency: 3x/week for 12 weeks [36 sessions] Intensity: 60-80% of age predicted maximum heart rate reserve Duration: 30 - 45 minutes Current METSs:: 4.0 Target Heart Rate:: 99-114 Current RPE:: 12-13 Maximum Excercise HR:: 96 Resting Blood Pressure: 92/68 Maximum Exercise Blood Pressure: 114/62 EKG Type: NSR to sinus tachycardia w/ rare PAC, multifocal PVCs, rate dependent BBB Current Physical Activity or Exercising minutes: 35:56 Outcomes & Goals Goals:: Verbalizes understanding of THR, RPE & goal METS by session 6, Documents in home exercise log/reports 30 min aerobic 5 day/wk by DC and Demonstrates accurate pulse taking by DC Intervention & Plan Exercise Program Goals: Instruct on personal THR & RPE, Instruct on MET level & personal MET goal, Show patient to take own pulse /validate performance until accurate and Instruct on home exercise 30-day Reassessments 30 day Reassessments:: Met Physical Activity Home Exercise Physical Activity - Home Exercise: Safe Exercise, Warm-up, Self-monitoring, Cool-Down, Home Exercise > 30 min Daily and Sitting Time <3 hours/daily Outcomes & Goals Outcomes/Goals: Demonstrates correct Warm-up/exercise Cool-Down (S3) if = 2.5 METs, Verbalizes symptoms of exercise intolerance by Session 3 (S3) and Demonstrate safe equipment use (S3) & follows exercise prescrition (6) Intervention & Plan Plan/Intervention: Instruct warm-up & cool-down if exercising at > 2 METs, Instruct on symptoms of exercise intolerance & actions to take, Instruct & monitor on saf and Assess intial functional capacity & safety risk 30-day Reassessments 30 day Reassessments:: Met Exercise - Final/Discharge Physician Prescribed Exercise Modalities: SciFit Stepper and SciFit Lateral Deck Molder Nutrition - 30-Day Assessment Weight Mgt (Other Care) Height: 6 ft 1 in Weight:: 200 lb 8 oz BMI: 26.4 Nutrition - 60-Day Assessment Weight Mgt (Other Care) Height: 6 ft 1 in Weight:: 200 lb 8 oz BMI: 26.4 Core - 90 Day Assessment Visit Date of Eval: 04/14/24 Session #:: 30 Medication Compliance Preventative Medication(s):: Aspirin and Beta romulo H/O mental health issues: depression, anxiety, or addiction?: Yes Doesn?t believe in the benefits of treatment?: No Believes medications are unnecessary or harmful?: No Has a concern about medication side effects?: No Expresses concern over the cost of medications?: No Outcomes/Goals: Verbalizes medications,desired effect & common side effects @ DC, Pt self-reports following medication regimen and Keeps card in wallet w/medications listed by DC Interventions/plans: Instruct on medication effects & side effects and Instruct importance of taking meds as ordered & assist problem solving 30-day Reassessments:: Met Tobacco Use Tobacco Use: Non-smoker Hypertension Hypertension Diagnosis:: Hypertension ICD-10 I10 Resting Blood Pressure:: 92/68 [place] [employer] Hypertension Guidelines Peak Exercise Blood Pressure:: 114/62 Outcomes/Goals: Able to verbalize/achieve optimal blood pressure <130/80 and Incorporates diet changes & exercise for blood pressure control by DC Interventions/plan: Instruct on optimal blood pressure, hypertension & medications and Instruct on effects of sodium, alcohol, stress, exercise &hypertension 30 day Reassessments:: Met Tobacco Cessation Referral Smoking Cessation Referral:: No Individual Education/Counseling:: No Education Schedule Given:: Yes Psychosocial - 30-Day Assess Target Goals Target Goals Referral to Behavioral Health PS - Interventions: Yes: Attend Stress Management Classes and No: Referral to Behavioral Health if PHQ-9 score >9:, No: Referral to [facility] and No: Referral to Physician if PHQ-9 if score is 5-9: Psychosocial - 60-Day Assess Target Goals Target Goals Referral to Behavioral Health PS - Interventions: Yes: Attend Stress Management Classes and No: Referral to Behavioral Health if PHQ-9 score >9:, No: Referral to [facility] and No: Referral to Physician if PHQ-9 if score is 5-9: Psychosocial - 90-Day Assess VIsit Date of Eval: 04/14/24 Session #:: 29 Not Applicable: No History of previous Mental disease:: Yes History of Emotional Disorders: Anxious and Depression Target Goals Target Goals Psychosocial Test Tool Used:: PHQ-9 Questionnaire phq-9 Severity Referral to Behavioral Health PS - Interventions: Yes: Attend Stress Management Classes and No: Referral to Behavioral Health if PHQ-9 score >9:, No: Referral to [facility] and No: Referral to Physician if PHQ-9 if score is 5-9: Outcomes/Goals: See list Psychosocial Outcomes/Goals:: ID's personal stressors & 2 strategies to manage stress by discharge Intervention/Plan: See List Interventions/Plan:: Instruct/assist pt to develop coping & personal stress Mgt strategies, Instruct patient to recognize signs & symptoms of depression and Instruct patient to recog 30-day Reassessments: 30 day Reassessments:: Progressing Psychosocial - Final Assessmen Target Goals Target Goals Referral to Behavioral Health PS - Interventions: Yes: Attend Stress Management Classes and No: Referral to Behavioral Health if PHQ-9 score >9:, No: Referral to [facility] and No: Referral to Physician if PHQ-9 if score is 5-9: Nutrition - 90-Day Assessment Program Goals Nutrition Program Goals Patient has diagnosis of Hyperlipidemia (ICD E78)?: Yes Visit Date of Eval: 04/14/24 Session #:: 30 Cholesterol/Lipids (Other Core Measures) Triglycerides (mg/dL): 100 Total Cholesterol (mg/dL): 91 LDL Cholesterol (mg/dL): 37 HDL Cholesterol (mg/dL): 34 Determine presence & major risk factors that modify LDL goal: Hypertension or hypertensive medication, Low HDL cholesterol <40 mg/dL*, Family history of premature CHD in Male < 55 years: female <65 yearsFa and Age men > 45 years; women >/= 55 years Outcomes/Goals: Pt IDs own risk factors & lifestyle modifications by Session 10, Verbalizes symptoms of angina & response by session 3. and Pt independently manages Intervention/Plan: Instruct on personal lipid levels & lipid goals/NCEP guidelines and Instruct on cholesterol Referral to dietitian:: Yes 30-day Reassessments:: Progressing Diabetes (Other Core Measures) Diabetes Type: Diagnosis Type II ICD-10 E11 Fasting blood glucose:: 234 Hgb A1C (4.2 -6.3): 6.9 Insulin dependent injection/pump?: Yes Non-Insulin Dependent?: Yes Do you monitor your blood sugar at home?: Yes Referral to Diabetic Clinic:: Yes Outcomes/Goals:: Able to state symptoms of, Able to state and Able to state Intervention/Plan:: Instruct on, Refer to and Instruct on 30-day Reassessments:: Progressing Weight Mgt (Other Care) Not Applicable: No Height: 6 ft 1 in Weight:: 200 lb 8 oz BMI: 26.4 Diagnosis Overweight/Obesity BMI> 30% ICD-10 E66: No Diagnosis High BMI/Morbid Obesity BMI> 35% ICD-10 Z68: No Outcomes/Goals: Pt sets, maintains & shows weight loss goal & trend during rehab Intervention/Plan: Instruct on ideal BMI & set weight loss goal w/patient 30 day Reassessments:: Met Healthy Eating Habits Will attend diet classes:: Yes Outcomes/Goals:: Consume diet rich in vegs,fruits,whole grain/high fiber,fish,lean meat and Limit sat/trans fats,cholesterol & added salts & sugars Intervention/Plan:: Assess current eating habits 30-day Reassessments:: Progressing Education Gave educational materials for:: Signs & symptoms of hypoglycemia, Signs & symptoms of hyperglycemia, Relate diabetes to coronary artery disease and Healthy eating Nutrition - Final Assessment Weight Mgt (Other Care) Height: 6 ft 1 in Weight:: 200 lb 8 oz BMI: 26.4
[2024-04-14 08:17] VITALS: BP 92/68
[2024-04-14 08:26] VITALS: BP 92/68; BMI 26.4
== END 2024-05-07 23:59 ==
LOC: CR 10:15
DX: I35.0 Nonrheumatic aortic (valve) stenosis (principal); I10 Essential (primary) hypertension
CPT/HCPCS: 93798

== ENCOUNTER 2024-08-11 18:33 | Emergency (ER) | payer OTHER, SELFPAY ==
[2024-08-11 18:34] VITALS: BMI 26.4
[2024-08-11 18:35] VITALS: BP 123/68; PULSE 82; RESP 16; TEMP 36.3; O2SAT 98; BMI 29.7
--- NOTE | 2024-08-11 18:48 | EDS_ITS ---
HPI HPI - Psych History of Present Illness Chief Complaint: Mental Health Informant: patient Onset/Context/Timing Onset: Weeks (2-3) Context: Gradual Onset Timing: Intermittent Worsened by: - (Nothing) Relieved by: Nothing Associated Symptoms Associated Symptoms - Psych: Positive for Change in sleeping (Patient has been sleeping more) and Visual Hallucinations; Negative for Depressed, Change in Eating, Suicidal Thoughts, Paranoia or Auditory Hallucinations Narrative Narrative: Patient presents with visual hallucinations that have been getting worse over the past 2 to 3 weeks. Patient states they come and go. Patient denies any suicidal or homicidal ideations. Patient denies any paranoid ideations. Patient denies hearing any voices. Patient states he has been taking his medications as prescribed. Patient states nothing makes the hallucinations worse and nothing makes them better. Patient also states he was talking to a friend who thought that his speech was somewhat slurred. Patient admits to increased sleeping over the past 2 to 3 weeks. [facility] Medical History Wears dentures Wears glasses Arthritis Diabetes Back pain Former smoker Hx of echocardiogram History of stress test Cardiology follow-up encounter Cellulitis of right lower extremity Arthritis Smoker Diabetes mellitus with diabetic polyneuropathy Amputation foot, unilat Depression Chronic pain Hepatitis Sleep apnea Former smoker Chest pain Hypertension TIA (transient ischemic attack) H/O alcohol abuse H/O drug abuse Anxiety Toe amputee Depression Pruritus Vitamin D deficiency Insomnia Hepatitis C Diabetic foot ulcer Debility Type 2 diabetes mellitus with diabetic polyneuropathy Delayed wound healing Non-pressure chronic ulcer of other part of right foot with fat layer exposed H/O alcohol abuse H/O drug abuse Hammer toe of right foot Hyperlipidemia Hypertension Cellulitis Diabetic foot infection Preop cardiovascular exam Troponin I above reference range Anxiety Stroke Diabetes Home Medications ?Medication ?Instructions ?Recorded ?Last Taken ?Type aspirin 81 mg tablet,delayed 81 mg PO DAILY@0800 heart health 07/08/20 09/26/22 History release rosuvastatin 40 mg tablet 40 mg PO QHS CHOLESTEROL 09/13/22 Unknown History ascorbic acid (vitamin C) 250 mg 250 mg PO DAILY health 11/20/23 Unknown History tablet ferrous sulfate 325 mg (65 mg 325 mg PO DAILY health 11/20/23 Unknown History iron) tablet furosemide 40 mg tablet 40 mg PO DAILY swelling 11/20/23 Unknown History insulin glargine U-300 conc 300 45 unit subcut DAILY diabetes 11/20/23 Unknown History unit/mL (3 mL) subcutaneous pen (Toujeo Max U-300 SoloStar) losartan 25 mg tablet 25 mg PO DAILY blood pressure 11/20/23 Unknown History melatonin 10 mg capsule 10 mg PO DAILY PRN insomnia 11/20/23 Unknown History metoprolol succinate 25 mg 25 mg PO DAILY blood pressure 11/20/23 Unknown History tablet,extended release 24 hr omeprazole 20 mg capsule,delayed 40 mg PO DAILY GERD 11/20/23 Unknown History release risperidone 1 mg tablet 1 mg PO BID bipolar 11/20/23 Unknown History semaglutide 0.25 mg or 0.5 mg (2 0.5 mg subcut QWEEK diabetes 11/20/23 Unknown History mg/3 mL) subcutaneous pen injector (Ozempic) Allergy/AdvReac Type Severity Reaction Status Date / Time No Known Allergies Allergy Verified 09/27/22 09:11 Family History Other Cancer Diabetes Surgical History History of permanent cardiac pacemaker placement History of aortic valve replacement Presence of right artificial hip joint Hx of cardiac cath History of hip surgery History of cholecystectomy History of transmetatarsal amputation of right foot Social History household members: spouse current occupational status: disabled Smoking Status: Former smoker alcohol intake: never substance use type: does not use ROS ROS ED Constitutional Constitutional ED: Denies chills or fever(s) Eyes Eyes: Denies blurry vision or change in vision ENT ENT ED: Denies rhinorrhea or sore throat Cardiovascular Cardiovascular: Denies chest pain or palpitations Respiratory/Chest Respiratory/Chest: Denies cough or dyspnea Gastrointestinal Gastrointestinal: Denies nausea or vomiting Genitourinary Genitourinary ED: Denies dysuria or hematuria Musculoskeletal Musculoskeletal: Reports back pain; Denies neck pain Integumentary Denies abscess or rash Neurologic Neurologic: Denies headache(s) or weakness Psychiatric Psychiatric: Denies depression, suicidal ideation or suicidal thoughts Allergic/Immunologic Allergic/Immunologic ED: Denies mouth swelling or urticaria EXAM Physical Exam Const Vital Signs: 08/11/24 18:35 08/11/24 19:34 08/11/24 21:00 Temperature 97.4 F L Temperature Source Oral Pulse Rate 82 66 78 Respiratory Rate 16 18 18 Blood Pressure 123/68 H Blood Pressure Mean 86 Pulse Ox 98 91 90 Oxygen Delivery Method Room Air Room Air Room Air 08/11/24 22:00 Temperature 98.1 F Temperature Source Oral Pulse Rate 74 Respiratory Rate 15 Blood Pressure Blood Pressure Mean Pulse Ox 92 Oxygen Delivery Method Room Air Positive well nourished and well developed General Appearance ED: well developed and NAD HEENT Reports moist mucous membranes Neck supple and no JVD Resp normal respiratory effort and clear to auscultation bilaterally Cardio Rate: regular rate Rhythm: regular rhythm GI non-tender and non-distended Palpation: soft Neuro oriented x3, CN's II-XII intact bilaterally and no sensory deficits noted Vitor Coma Scale: document GCS findings Spontaneous Obeys Commands Oriented 15 Sensorium / Orientation: alert Motor Exam: strength 5/5 throughout Psych mental status grossly normal and cooperative Attitude: calm Activity / Motor Behavior: appropriate eye contact Speech: normal speech Thought Content: No suicidality, No homicidality and hallucination(s) Positive for visual MDM MDM MDM Narrative Medical decision making narrative: Differential diagnosis includes hepatic encephalopathy, stroke, electrolyte abnormality, hypoglycemia, and hyperglycemia. CT scan of the brain will be obtained to assess for intracranial bleeding and stroke. CBC will be obtained to assess for leukocytosis and anemia. Comprehensive metabolic profile will be obtained to assess for hepatic function, renal function, and electrolyte abnormality. Serum ammonia level will be obtained to assess for hepatic encephalopathy. Urinalysis will be obtained to assess for urinary tract infection and hematuria. Serum alcohol level will be obtained to assess for alcohol intoxication. Urine tox screen will be obtained to assess for substance abuse. Lab Data Attestation: I reviewed the patient's lab results. Lab results narrative: CBC was reviewed and was essentially within normal limits. Comprehensive metabolic profile was reviewed. Glucose was elevated at 193. The remainder is within normal limits. Urinalysis was reviewed. There is no evidence of urinary tract infection or hematuria. Urine tox screen was reviewed and was negative. Serum alcohol level was reviewed and was less than 3. Labs: Laboratory Results - last 24 hr 08/11/24 19:42 WBC 3.9 L RBC 4.54 L Hgb 13.4 Hct 39.9 L MCV 87.9 MCH 29.5 MCHC 33.6 RDW Std Deviation 41.9 RDW Coeff of Hakeem 13.1 Plt Count 78 L MPV 10.3 Immature Gran % (Auto) 0.300 Neut % (Auto) 67.0 Lymph % (Auto) 20.7 [place] % (Auto) 8.2 Eos % (Auto) 3.3 Baso % (Auto) 0.5 Absolute Neuts (auto) 2.6 Absolute Lymphs (auto) 0.81 L Nucleated RBC % 0 Differential Comment SCANNED Platelet Estimate MOD DEC Sodium 139 Potassium 3.8 Chloride 108 H Carbon Dioxide 25.0 Anion Gap 6 BUN 17 Creatinine 0.87 Estim Creat Clear Calc 90.56 Est GFR (MDRD) Af Amer 111 Est GFR (MDRD) Non-Af 92 BUN/Creatinine Ratio 19.5 Glucose 193 H Calcium 9.0 Total Bilirubin 1.00 AST 31 ALT 53 Alkaline Phosphatase 74 Ammonia 31.0 Total Protein 6.8 Albumin 3.6 Globulin 3.2 Albumin/Globulin Ratio 1.1 Urine Color Yellow Urine Clarity Clear Urine pH 6.0 Ur Specific [place] 1.015 Urine Protein Negative Urine Glucose (UA) Normal Urine Ketones Negative Urine Occult Blood Negative Urine Nitrite Negative Urine Bilirubin Negative Urine Urobilinogen 4 H Ur Leukocyte Esterase Negative Urine RBC 0 SEEN Urine WBC 0 SEEN Ur Squamous Epith Cells 0 SEEN Urine Bacteria RARE Urine Mucus 0 SEEN Urine Opiates Screen NEGATIVE Urine Methadone Screen NEGATIVE Ur Barbiturates Screen NEGATIVE Ur Phencyclidine Scrn NEGATIVE Ur Amphetamines Screen NEGATIVE MDMA (Ecstasy) Screen NEGATIVE U Benzodiazepines Scrn NEGATIVE Urine Cocaine Screen NEGATIVE U Cannabinoids Screen NEGATIVE Ur Drug Screen Comment Ethyl Alcohol < 3.0 Radiography Diagnostic Testing: Clinical Impression(s) from Imaging Studies Brain CT 08/11/24 20:55 IMPRESSION: Mild atrophy and periventricular white matter ischemic change. No mass or acute bleed. If concern for acute infarct MRI recommended Electronically Signed: Rohit Martinez MD at 21:31 EST Reading Location ID and State: [facility] / [place] Tel , Service support , CT scan of the brain was obtained. There is no acute intracranial abnormality. This was interpreted by the radiologist and was also independently reviewed by myself. Treatment and Re-Evaluation Narrative: Patient was advised of his findings. Crisis was in to evaluate the patient. [facility] meets [facility] to their [facility] versus follow-up as an outpatient. Patient states she has an appointment in 2 days. Care of the patient was turned over to the oncoming physician pending crisis disposition. Discharge Plan Triage Chief Complaint: Mental Health ED Provider: Enoch Jiang Dx/Rx/DC Orders Clinical Impression: Visual hallucinations, Diabetes mellitus type II, controlled, Bipolar disorder Prescriptions: No Action aspirin 81 MG tablet 81 mg PO DAILY@0800 rosuvastatin 40 mg Tablet 40 mg PO QHS furosemide 40 mg tablet 40 mg PO DAILY losartan 25 mg tablet 25 mg PO DAILY ferrous sulfate 325 mg (65 mg iron) tablet 325 mg PO DAILY metoprolol succinate 25 mg tablet extended release 24 hr 25 mg PO DAILY ascorbic acid (vitamin C) 250 mg tablet 250 mg PO DAILY insulin glargine U-300 conc [Toujeo Max U-300 SoloStar] 300 unit/mL (3 mL) insulin pen 45 unit subcut DAILY melatonin 10 mg capsule 10 mg PO DAILY PRN (Reason: insomnia) omeprazole 20 mg capsule,delayed release(DR/EC) 40 mg PO DAILY risperidone 1 mg tablet 1 mg PO BID Ozempic 0.25 mg or 0.5 mg (2 mg/3 mL) pen injector 0.5 mg subcut QWEEK Rx Instructions: for 4 weeks. Patient needs to bring from home [facility] [facility] [[facility] Provider] - Print Language: Malawian
[2024-08-11 18:53] VITALS: BMI 25.9
[2024-08-11 19:34] VITALS: PULSE 66; RESP 18; O2SAT 91
[2024-08-11 19:52] LABS: Mucous, Urine 0 SEEN /hpf (<or=2+); Red Blood Cells-Urine 0 SEEN /hpf (0-5); Squamous Epithelial Cells - UA 0 SEEN /hpf (0-5); White Blood Cells 0 SEEN /hpf (0-5)
[2024-08-11 19:56] LABS: Absolute Lymphocyte Count 0.81 X10^3/uL (0.83-4.51); Absolute Neutrophil Count 2.6 X10^3/uL (2.0-7.7); Basophil# 0.02 X10^3/uL; Basophil% 0.5 % (0-1); Eosinophil# 0.13 X10^3/uL; Eosinophils% 3.3 % (0-5); Hematocrit 39.9 % (40-54); Hemoglobin 13.4 g/dL (13.0-16.5); Lymphocyte # 0.81 X10^3/ul (0.83-4.51); Lymphocyte % 20.7 % (19-41); Mean Corp Hgb Conc 33.6 g/dL (32-36); Mean Corpuscular Hgb 29.5 pg (27.0-32.0); Mean Corpuscular Volume 87.9 fL (80-94); Mean Platelet Vol. 10.3 fl (6.2-12.0); Monocyte# 0.32 X10^3/uL; Monocyte% 8.2 % (0-10); NRBC Flagged by Analyzer 0 % (0-5); Neutrophil # 2.62 X10^3/uL (2.7-7.7); POSITIVE COUNT YES; Platelet Count 78 K/mm3 (150-450); RBC Distribution Width CV 13.1 % (11.6-14.6); RBC Distribution Width SD 41.9 fl (35.1-43.9); Red Blood Count 4.54 M/mm3 (4.6-6.2); White Blood Count 3.9 K/mm3 (4.4-11.0)
[2024-08-11 19:57] LABS: Color, Urine Yellow (Yellow); Glucose, Dipstick Normal (Normal); Ketone-Dipstick Negative (Negative); Leukocyte Esterase-Dipstick Negative /ul (Negative); Nitrite-Dipstick Negative (Negative); Occult Blood-Urine Negative /ul (Negative); Protein-Dipstick Negative (Negative); Specific Gravity, Urine 1.015 (1.002-1.030); Urine Bilirubin Dipstick Negative (Negative); Urine Clarity Clear (Clear); Urine Urobilinogen 4 mg/dl (Normal)
[2024-08-11 20:05] LABS: Bacteria RARE /hpf (None Seen)
[2024-08-11 20:07] LABS: Differential Indicated SCAN CRITERIA MET
[2024-08-11 20:08] LABS: Alcohol, Blood (Medical)-Serum < 3.0 mg/dL
[2024-08-11 20:12] LABS: ALB/GLOB Ratio 1.1 RATIO (0.9-2.4); AST(SGOT) 31 U/L (15-37); Alanine Aminotransfer ALT/SGPT 53 U/L (16-61); Albumin, Serum 3.6 g/dL (3.2-5.0); Alkaline Phosphatase 74 U/L (45-117); Anion Gap 6 (5-15); BUN 17 mg/dL (7-18); BUN/Creat Ratio 19.5 RATIO (10-20); Chloride 108 mmol/L (98-107); Creatinine, Serum 0.87 mg/dL (0.70-1.30); EST Glomerular Filtration Rate 92 mL/min (>60); Est Glom Filt Rate - Afr Amer 111 mL/min (>60); Estimated Creatinine Clearance 90.56 ml/min; Globulin 3.2 g/dL (2.2-4.2); Glucose 193 mg/dL (74-106); Potassium 3.8 mmol/L (3.5-5.1); Protein, Total 6.8 g/dL (6.4-8.2); Sodium Level 139 mmol/L (136-145)
[2024-08-11 20:15] LABS: Amphetamine Urine VISTA NEGATIVE (<1000 ng/mL); Barbiturate Urine VISTA NEGATIVE (< 200 ng/mL); Benzodiazepine Urine VISTA NEGATIVE (< 200 ng/mL); Cocaine Urine VISTA NEGATIVE (< 300 ng/mL); Ecstacy Urine VISTA NEGATIVE (< 500 ng/mL); Methadone Urine VISTA NEGATIVE (< 300 ng/mL); PCP Urine VISTA NEGATIVE (< 25 ng/mL); THC Urine VISTA NEGATIVE (< 50 ng/mL); Vista UDS pH Range 5
[2024-08-11 20:55] LABS: Differential Comment SCANNED; Platelet Estimate MOD DEC (ADEQ)
--- NOTE | 2024-08-11 20:55 | CT_ITS ---
STUDY: CT BRAIN WITHOUT CONTRAST REASON FOR EXAM: Male, 69 years old. Hallucinations RADIATION DOSAGE (If Supplied By Facility): CTDIvol = ( 44.99 ) mGy, DLP = ( 846.73 ) mGycm TECHNIQUE: Transaxial CT imaging of the brain was performed without administration of intravenous contrast material. Individualized dose optimization techniques were used for this CT. COMPARISON: September 15, 2021 FINDINGS: Normal soft tissue structures. Normal calvarium. Mild calcific plaquing of the cavernous carotids Mild atrophy and periventricular white matter ischemic changes. Normal basal ganglia and thalami. Normal brainstem. Normal cerebellum. There is no intracranial hemorrhage. There are no findings of an acute ischemic infarction. Normal visualized paranasal sinuses. Postsurgical changes of the orbits. CT/Brain/Head without Contrast IMPRESSION: Mild atrophy and periventricular white matter ischemic change. No mass or acute bleed. If concern for acute infarct MRI recommended Electronically Signed: Rohit Martinez MD at 21:31 EST ,
[2024-08-11 21:00] VITALS: PULSE 78; RESP 18; O2SAT 90
[2024-08-11 22:00] VITALS: PULSE 74; RESP 15; TEMP 36.7; O2SAT 92
[2024-08-12 00:47] VITALS: BP 114/77; PULSE 77; RESP 18; TEMP 37.1; O2SAT 95
== END 2024-08-12 00:47 | disposition home or self-care (01) ==
PROVIDERS: Emergency Provider Emergency Medicine; Referring Provider Emergency Medicine; Visit Provider Emergency Medicine
DX: R44.3 Hallucinations, unspecified (principal); F31.9 Bipolar disorder, unspecified; E11.40 Type 2 diabetes mellitus with diabetic neuropathy, unspecified; E78.5 Hyperlipidemia, unspecified; I10 Essential (primary) hypertension; Z87.891 Personal history of nicotine dependence; M54.9 Dorsalgia, unspecified; Z90.49 Acquired absence of other specified parts of digestive tract; Z95.0 Presence of cardiac pacemaker; Z95.2 Presence of prosthetic heart valve; Z86.73 Personal history of transient ischemic attack (TIA), and cerebral infarction without residual deficits
CPT/HCPCS: 70450; 80053; 80307; 81001; 82077; 82140; 85025; 99284

== ENCOUNTER 2024-12-02 14:08 | Inpatient (IN) | payer OTHER, SELFPAY ==
[2024-12-02 14:11] VITALS: BP 131/66; PULSE 65; RESP 18; TEMP 37.2; O2SAT 96; BMI 26.9
--- NOTE | 2024-12-02 14:25 | EKG12_ITS ---
Test Reason : Blood Pressure : */* mmHG Vent. Rate : 68 BPM Atrial Rate : 68 BPM P-R Int : * ms QRS Dur : 152 ms QT Int : 442 ms P-R-T Axes : 120 -15 191 degrees QTcB Int : 469 ms Ventricular-paced rhythm Abnormal ECG nsr with ventricular paced tracking p waves Confirmed by Narciso Burch ([id number]), multimedia editor DOUGLAS EMMANUEL ([id number]) on 12/03/2024 8:22:23 AM Referred By: Confirmed By: Narciso Burch
--- NOTE | 2024-12-02 14:26 | CT_ITS ---
EXAM: CT BRAIN WITHOUT CONTRAST CLINICAL HISTORY: Patient fell COMPARISON: CT brain dated 08/11/2024. TECHNIQUE: Contiguous axial scans of 3.75 mm slice thicknesses with sagittal and coronal reconstruction images. One or more dose reduction techniques were utilized (e.g., automated exposure control, adjustment of mA and/or kv according to patient size, use of iterative reconstruction technique). FINDINGS: Cerebrum: No intraparenchymal hemorrhage. No abnormal areas of encephalomalacia. No mass effect or midline shift. Age-related microvascular ischemic changes. Age-appropriate involutional changes Ventricles and cisterns: Appropriate size for patient's age. Extra-axial fluid: Unremarkable. Posterior fossa: Unremarkable cerebellum. No abnormalities involving the brainstem. Paranasal sinuses: Normal. Vasculature: Unremarkable. Mastoid air cells: Normal. Calvarium: Unremarkable. Soft tissues: Unremarkable. CT/Brain/Head without Contrast IMPRESSION: 1. Stable findings when compared to the previous study. 2. Chronic age-related microvascular ischemic changes. 3. Age-related involutional/senescent changes are stable. 4. No acute intracranial findings. Reading Location: [place] [id number]
--- NOTE | 2024-12-02 14:30 | ED.VIS.FALL ---
HPI <ARELY Cagle - Last Filed: 12/02/24 17:15> HPI - Fall History of Present Illness Chief Complaint: Fall Narrative Narrative: 69-year-old male with past medical history of pacemaker, bipolar, type 2 diabetes was brought in by EMS after a fall. Patient states Sunday night he was getting into bed and fell on the floor because he missed the bed. He states he has been there since then. When I asked how EMS was notified he said he parked squirrely which caused his neighbor to call for a well check. He denies drinking. He states he hit his head but has no loss of consciousness. He is not on blood thinners. He complains of left hip pain. He states he had a few sips of water to drink while on the floor but nothing to eat. 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, unilat Depression Chronic pain Hepatitis Sleep apnea Former smoker Chest pain Hypertension TIA (transient ischemic attack) H/O alcohol abuse H/O drug abuse Anxiety Toe amputee Depression Pruritus Vitamin D deficiency Insomnia Hepatitis C Diabetic foot ulcer Debility Type 2 diabetes mellitus with diabetic polyneuropathy Delayed wound healing Non-pressure chronic ulcer of other part of right foot with fat layer exposed H/O alcohol abuse H/O drug abuse Hammer toe of right foot Hyperlipidemia Hypertension Cellulitis Diabetic foot infection Preop cardiovascular exam Troponin I above reference range Anxiety Stroke Diabetes Home Medications ?Medication ?Instructions ?Recorded ?Last Taken ?Type aspirin 81 mg tablet,delayed 81 mg PO DAILY@0800 heart health 07/08/20 11/29/24 History release rosuvastatin 40 mg tablet 40 mg PO QHS CHOLESTEROL 09/13/22 11/29/24 History ascorbic acid (vitamin C) 250 mg 250 mg PO DAILY health 11/20/23 11/29/24 History tablet ferrous sulfate 325 mg (65 mg 325 mg PO DAILY health 11/20/23 11/29/24 History iron) tablet insulin glargine U-300 conc 300 45 unit subcut DAILY diabetes 11/20/23 11/29/24 History unit/mL (3 mL) subcutaneous pen (Toujeo Max U-300 SoloStar) losartan 25 mg tablet 25 mg PO DAILY blood pressure 11/20/23 11/29/24 History melatonin 10 mg capsule 10 mg PO DAILY PRN insomnia 11/20/23 11/29/24 History metoprolol succinate 25 mg 25 mg PO DAILY blood pressure 11/20/23 11/29/24 History tablet,extended release 24 hr omeprazole 20 mg capsule,delayed 40 mg PO DAILY GERD 11/20/23 11/29/24 History release risperidone 1 mg tablet 1 mg PO BID bipolar 11/20/23 11/29/24 History semaglutide 0.25 mg or 0.5 mg (2 0.5 mg subcut MO diabetes 11/20/23 11/24/24 History mg/3 mL) subcutaneous pen injector (Ozempic) Allergy/AdvReac Type Severity Reaction Status Date / Time No Known Allergies Allergy Verified 12/02/24 14:09 Family History Other Cancer Diabetes Surgical History History of permanent cardiac pacemaker placement History of aortic valve replacement Presence of right artificial hip joint Hx of cardiac cath History of hip surgery History of cholecystectomy History of transmetatarsal amputation of right foot Social History household members: spouse current occupational status: disabled Smoking Status: Former smoker alcohol intake: never substance use type: does not use ROS <ARELY Cagle - Last Filed: 12/02/24 17:15> ROS ED ROS Narrative Constitutional: Negative for fever, chills. CVS: Negative for chest pain. Respiratory: Negative for shortness of breath, cough. GI: Negative for abdominal pain, nausea, vomiting, diarrhea. Neuro: Negative for headache. EXAM <ARELY Cagle - Last Filed: 12/02/24 17:15> Physical Exam Narrative Exam Narrative: CONST: Patient sitting in no acute distress. EYES: Normal inspection. NECK: Normal inspection. RESP: No respiratory distress, CTAB. CVS: Regular rate and rhythm, no murmur, no gallop. ABD: Soft and nontender, no guarding or rebound, nondistended. Back: Normal inspection, no midline tenderness. No external signs of trauma. SKIN: Color normal, no rash, warm, dry, intact. EXTREMITIES: Normal appearance of upper extremities, full no bony tenderness, 2+ radial pulses. Tender over left hip with left leg shortening and rotation. No tenderness of knee lower leg or foot. 2+ DP pulses. Right leg nontender. NEURO: Alert and answering questions appropriately. PSYCH: Normal affect. Const Vital Signs: 12/02/24 14:11 12/02/24 14:16 Temperature 99 F Temperature Source Oral Pulse Rate 65 Respiratory Rate 18 Respiratory Effort Normal Non-Labored Respiratory Pattern Normal Blood Pressure 131/66 H Blood Pressure Mean 87 Pulse Ox 96 Oxygen Delivery Method Room Air <Dr. Kathia Marie DO - Last Filed: 12/03/24 01:15> Physical Exam Const Vital Signs: 12/02/24 14:11 12/02/24 14:16 Temperature 99 F Temperature Source Oral Pulse Rate 65 Respiratory Rate 18 Respiratory Effort Normal Non-Labored Respiratory Pattern Normal Blood Pressure 131/66 H Blood Pressure Mean 87 Pulse Ox 96 Oxygen Delivery Method Room Air MDM <ARELY Cagle - Last Filed: 12/02/24 17:15> [facility] MDM Narrative Medical decision making narrative: Consults: Orthopedics, hospitalist Differential includes but not limited to mechanical fall, intracranial hemorrhage, pelvic or hip fracture, rhabdomyolysis Patient had a mechanical fall reportedly 2 days ago and has been on the ground by his bed since then. He had a head injury but no LOC. He is not on blood thinners. He is awake alert no distress. Vital signs stable. He has no signs of head neck or thorax trauma. Normal heart and lung sounds. Abdomen soft and nontender. Pelvis is stable. He has left hip pain and left leg shortening and external rotation concerning for a fracture. Distal pulses intact. X-ray shows acute left subcapital hip fracture. CT brain is negative. CBC is unremarkable. There is a delay in the blood work results so they were not completed prior to patient being admitted and transferred to the floor. I discussed the case with Dr. Lopez who plans to take him to the OR tomorrow. Case was discussed with the hospitalist for admission. Lab Data Attestation: I reviewed the patient's lab results. Labs: Laboratory Results - last 24 hr 12/02/24 14:30 WBC 7.6 RBC 4.66 Hgb 13.8 Hct 41.4 MCV 88.8 MCH 29.6 MCHC 33.3 RDW Std Deviation 43.1 RDW Coeff of Hakeem 13.4 Plt Count 95 L MPV 10.4 Immature Gran % (Auto) 0.400 Neut % (Auto) 83.1 H Lymph % (Auto) 6.3 L Bartow % (Auto) 9.5 Eos % (Auto) 0.3 Baso % (Auto) 0.4 Absolute Neuts (auto) 6.3 Absolute Lymphs (auto) 0.48 L Nucleated RBC % 0 Sodium 141 Potassium 3.3 Anion Gap 14 BUN 25 H Creatinine 1.0 Estim Creat Clear Calc 78.79 Est GFR (MDRD) Non-Af 84 BUN/Creatinine Ratio 25.1 H Glucose 214 H Calcium 9.4 Total Bilirubin 2.19 H AST 44 H ALT 40 Alkaline Phosphatase 63 Total Creatine Kinase 472 H Total Protein 7.2 Albumin 4.3 Globulin 2.9 Albumin/Globulin Ratio 1.5 Radiography Diagnostic Testing: Clinical Impression(s) from Imaging Studies Brain CT 12/02/24 14:26 IMPRESSION: 1. Stable findings when compared to the previous study. 2. Chronic age-related microvascular ischemic changes. 3. Age-related involutional/senescent changes are stable. 4. No acute intracranial findings. Reading Location: [facility] Chest X-Ray 12/02/24 14:45 IMPRESSION: Hyperinflation. The lungs are clear. Reading Location: [facility] Hip/Pelvis X-Ray 12/02/24 14:50 IMPRESSION: Acute transverse fracture of the subcapital region of the proximal femur with cephalic migration of the distal fracture fragment. Reading Location: [facility] ED attending interpretation of left hip shows subcapital fracture. EKG Initial EKG: Attestation: I personally reviewed and interpreted this EKG as follows: Comments: Ventricular paced rhythm at 68 bpm <Dr. Kathia Marie, DO - Last Filed: 12/03/24 01:15> MDM MDM Narrative Medical decision making narrative: Consults: Orthopedics, hospitalist Differential includes but not limited to mechanical fall, intracranial hemorrhage, pelvic or hip fracture, rhabdomyolysis Patient had a mechanical fall reportedly 2 days ago and has been on the ground by his bed since then. He had a head injury but no LOC. He is not on blood thinners. He is awake alert no distress. Vital signs stable. He has no signs of head neck or thorax trauma. Normal heart and lung sounds. Abdomen soft and nontender. Pelvis is stable. He has left hip pain and left leg shortening and external rotation concerning for a fracture. Distal pulses intact. X-ray shows acute left subcapital hip fracture. CT brain is negative. CBC is unremarkable. There is a delay in the blood work results so they were not completed prior to patient being admitted and transferred to the floor. I discussed the case with Dr. Lopez who plans to take him to the OR tomorrow. Case was discussed with the hospitalist for admission. I have personally performed a face to face assessment of the patient and have reviewed the GILMA Note. I performed a substantive portion of the visit including all aspects of the following. My emerson findings include: History is patient 69-year-old male with history of pacemaker, diabetes with polyneuropathy and prior amputation of his right toes, debility and bipolar disorder presenting for evaluation of fall. EMS was called by the patient's neighbor because his car was parked funny. Patient was found on the side of his bed. Complaining of left hip pain. Patient states he has been on the side of bed for days. Workup looking for traumatic injury, because of his fall (patient states he just missed the bed but he is a poor historian) and rhabdomyolysis is obtained. Chest x-ray viewed by myself as well as radiology does not show any acute process. Hip x-ray shows prior right total hip arthroplasty and left subcapital fracture. Case is discussed with orthopedics, Dr. Lopez and PA. Plan for surgical repair tomorrow. Patient admitted to the hospitalist service. There was a delay in obtaining remainder of patient's labs because of issues with new machine. This was discussed with hospitalist and patient accepted for admission prior to remaining labs obtained. I was notified after patient been moved upstairs that his high-sensitivity troponin was elevated at 56. I do not think his primary event was cardiac and his EKG does not show ischemic changes. He is not complain of chest pain. CK was elevated consistent likely with developing rhabdomyolysis Other additions or changes: [None] Lab Data Labs: Laboratory Results - last 24 hr 12/02/24 14:30 WBC 7.6 RBC 4.66 Hgb 13.8 Hct 41.4 MCV 88.8 MCH 29.6 MCHC 33.3 RDW Std Deviation 43.1 RDW Coeff of Hakeem 13.4 Plt Count 95 L MPV 10.4 Immature Gran % (Auto) 0.400 Neut % (Auto) 83.1 H Lymph % (Auto) 6.3 L Bartow % (Auto) 9.5 Eos % (Auto) 0.3 Baso % (Auto) 0.4 Absolute Neuts (auto) 6.3 Absolute Lymphs (auto) 0.48 L Nucleated RBC % 0 Sodium 141 Potassium 3.3 Anion Gap 14 BUN 25 H Creatinine 1.0 Estim Creat Clear Calc 78.79 Est GFR (MDRD) Non-Af 84 BUN/Creatinine Ratio 25.1 H Glucose 214 H Calcium 9.4 Total Bilirubin 2.19 H AST 44 H ALT 40 Alkaline Phosphatase 63 Total Creatine Kinase 472 H Total Protein 7.2 Albumin 4.3 Globulin 2.9 Albumin/Globulin Ratio 1.5 Radiography Diagnostic Testing: Clinical Impression(s) from Imaging Studies Brain CT 12/02/24 14:26 IMPRESSION: 1. Stable findings when compared to the previous study. 2. Chronic age-related microvascular ischemic changes. 3. Age-related involutional/senescent changes are stable. 4. No acute intracranial findings. Reading Location: [facility] Chest X-Ray 12/02/24 14:45 IMPRESSION: Hyperinflation. The lungs are clear. Reading Location: [id number] Hip/Pelvis X-Ray 12/02/24 14:50 IMPRESSION: Acute transverse fracture of the subcapital region of the proximal femur with cephalic migration of the distal fracture fragment. Reading Location: [id number] Management Discussion w/another healthcare provider: Hospitalist and Tax Accounting Assistant Discharge Plan Dx/Rx/DC Orders Clinical Impression: Fall, Closed fracture of left hip, Rhabdomyolysis Disposition Disposition: Acute Care Hospital [facility] Discharge Date/Time: 12/02/24 17:08
[2024-12-02] MEDS: 0.9% Normal Saline (1000mL) 1,000 ML 999 ML IV (14:31)
[2024-12-02 14:44] LABS: Absolute Lymphocyte Count 0.48 X10^3/uL (0.83-4.51); Absolute Neutrophil Count 6.3 X10^3/uL (2.0-7.7); Basophil# 0.03 X10^3/uL; Basophil% 0.4 % (0-1); Eosinophil# 0.02 X10^3/uL; Eosinophils% 0.3 % (0-5); Hematocrit 41.4 % (40-54); Hemoglobin 13.8 g/dL (13.0-16.5); Lymphocyte # 0.48 X10^3/ul (0.83-4.51); Lymphocyte % 6.3 % (19-41); Mean Corp Hgb Conc 33.3 g/dL (32-36); Mean Corpuscular Hgb 29.6 pg (27.0-32.0); Mean Corpuscular Volume 88.8 fL (80-94); Mean Platelet Vol. 10.4 fl (6.2-12.0); Monocyte# 0.72 X10^3/uL; Monocyte% 9.5 % (0-10); NRBC Flagged by Analyzer 0 % (0-5); Neutrophil % 83.1 % (47-70); POSITIVE COUNT YES; POSITIVE DIFFERENTIAL YES; Platelet Count 95 K/mm3 (150-450); RBC Distribution Width CV 13.4 % (11.6-14.6); RBC Distribution Width SD 43.1 fl (35.1-43.9); Red Blood Count 4.66 M/mm3 (4.6-6.2); White Blood Count 7.6 K/mm3 (4.4-11.0)
--- NOTE | 2024-12-02 14:45 | RAD_ITS ---
PROCEDURE: CHEST 1 VIEW (PORTABLE) REASON FOR EXAM: Chest pain following a recent fall. TECHNIQUE: Frontal view of the chest. COMPARISON: Comparison is made with prior study dated July 08, 2020. FINDINGS: EKG electrodes are seen. The heart size is normal. Prior CABG. A left-sided dual-chamber pacemaker is seen. Calcification of the aortic arch. Hyperinflation. The lungs are clear. Healed left-sided rib fractures. RAD/Chest 1 View (Portable) IMPRESSION: Hyperinflation. The lungs are clear. Reading Location: [id number]
--- NOTE | 2024-12-02 14:50 | RAD_ITS ---
PROCEDURE: HIP, UNI W/ PELVIS 2-3 VIEWS REASON FOR EXAM: Left hip pain following a fall. TECHNIQUE: Two views of the left hip were obtained. COMPARISON: None. FINDINGS: There is evidence of a left subcapital fracture of the proximal right femur with cephalic migration of the distal fracture fragment. Soft tissue swelling. Status post right total hip replacement. RAD/HIP, UNI W/ Pelvis 2-3 Views IMPRESSION: Acute transverse fracture of the subcapital region of the proximal femur with c ephalic migration of the distal fracture fragment. Reading Location: [id number]
[2024-12-02] MEDS: Morphine 4 MG/ML Syringe IV (16:16)
[2024-12-02] MEDS: Ondansetron 4 MG/2 ML Vial IV (16:16)
--- NOTE | 2024-12-02 16:16 | HP.PCM.HOS_ITS ---
[facility] - General General Date of Service: 12/02/24 Chief Complaint: left hip pain. HPI Narrative DAMON WYLIE, is a 69 M who presents with left hip pain. Patient states that he was try to get in bed on Sunday and fell. He was unable to get up nor contact anyone. After 2 days, his manager business information noted that he was parked oddly and went to his room to find him laying on the floor. Patient was sent to the hospital and was found to have a left acute transverse fracture of the subcapital region of the proximal fever and her with cephalad migration of the distal femur fragments. Patient received morphine in the emergency room. Dr. Lopez, orthopedics, was contacted and will be willing to see the patient in consultation with tentative plans for the patient have surgery on the . 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, unilat Depression Chronic pain Hepatitis Sleep apnea Former smoker Chest pain Hypertension TIA (transient ischemic attack) H/O alcohol abuse H/O drug abuse Anxiety Toe amputee Depression Pruritus Vitamin D deficiency Insomnia Hepatitis C Diabetic foot ulcer Debility Type 2 diabetes mellitus with diabetic polyneuropathy Delayed wound healing Non-pressure chronic ulcer of other part of right foot with fat layer exposed H/O alcohol abuse H/O drug abuse Hammer toe of right foot Hyperlipidemia Hypertension Cellulitis Diabetic foot infection Preop cardiovascular exam Troponin I above reference range Anxiety Stroke Diabetes Home Medications ?Medication ?Instructions ?Recorded ?Last Taken ?Type aspirin 81 mg tablet,delayed 81 mg PO DAILY@0800 heart health 07/08/20 11/29/24 History release rosuvastatin 40 mg tablet 40 mg PO QHS CHOLESTEROL 04/2811/29/24 History ascorbic acid (vitamin C) 250 mg 250 mg PO DAILY healt h 11/20/23 11/29/24 History tablet ferrous sulfate 325 mg (65 mg 325 mg PO DAILY health 0 11/20/23 11/29/24 History iron) tablet insulin glargine U-300 conc 300 45 unit subcut DAILY d iabetes 11/20/23 11/29/24 History unit/mL (3 mL) subcutaneous pen ([place] Max U-300 SoloStar) losartan 25 mg tablet 25 mg PO DAILY blood pressur e 11/20/23 11/29/24 History melatonin 10 mg capsule 10 mg PO DAILY PRN insomnia 11/20/23 11/29/24 History metoprolol succinate 25 mg 25 mg PO DAILY blood pressu re 11/20/23 11/29/24 History tablet,extended release 24 hr omeprazole 20 mg capsule,delayed 40 mg PO DAILY GERD 0 11/20/23 11/29/24 History release risperidone 1 mg tablet 1 mg PO BID bipolar 11/20/23 11/29/24 History semaglutide 0.25 mg or 0.5 mg (2 0.5 mg subcut MO diab etes 11/20/23 11/24/24 History mg/3 mL) subcutaneous pen injector (Ozempic) Allergy/AdvReac Type Severity Reaction Status Date / Time No Known Allergies Allergy Verified 12/02/24 14:09 Family History Other Cancer Diabetes Surgical History History of permanent cardiac pacemaker placement History of aortic valve replacement Presence of right artificial hip joint Hx of cardiac cath History of hip surgery History of cholecystectomy History of transmetatarsal amputation of right foot Social History household members: spouse current occupational status: disabled Smoking Status: Former smoker alcohol intake: never substance use type: does not use ROS ROS Narrative Patient with a myriad of complaints including chest pain, cough, chills, sore throat, dry cough. All review of systems were negative except as mentioned above in the history of present illness and the other review of systems. Vital Signs Vital Signs Vital Signs: 12/02/24 14:11 12/02/24 14:16 Temperature 37.2 C Temperature Source Oral Pulse Rate 65 Respiratory Rate 18 Respiratory Effort Normal Non-Labored Respiratory Pattern Normal Blood Pressure 131/66 H Blood Pressure Mean 87 Pulse Ox 96 Oxygen Delivery Method Room Air Weight Weight: 92.5 kg Body Mass Index (BMI) 26.9 Physical Exam Const alert and no apparent distress Constitutional Narrative: Nontoxic. Afebrile. HEENT normocephalic and head/scalp atraumatic HEENT Narrative: Mucous membranes dry Eyes Eyes Narrative: No icterus Neck no lymphadenopathy Neck Narrative: No thyromegaly Resp normal respiratory effort, no retractions, no use of accessory muscles and clear to auscultation bilaterally Cardio regular rate, regular rhythm, S1 normal heart sound and S2 normal heart sound GI normal to inspection, nondistended, normoactive bowel sounds, soft to palpation, non-tender and non-distended Extremity normal to inspection, full ROM and no clubbing, cyanosis or edema Extremity Narrative: Shortened left lower extremity compared to the right. Patient has history of transmetatarsal amputation on the right. Neuro oriented x3, CN's II-XII intact bilaterally and moves all extremities Psych affect normal Results Lab / Micro Data Attestation: I reviewed the patient's lab results. 12/02/24 14:30 12/02/24 14:30 Labs: Laboratory Results - last 24 hr 12/02/24 14:30: WBC 7.6, RBC 4.66, Hgb 13.8, Hct 41.4, MCV 88.8, MCH 29.6, MCHC 33.3, RDW Std Deviation 43.1, RDW Coeff of Hakeem 13.4, Plt Count 95 L, MPV 10.4, Immature Gran % (Auto) 0.400, Neut % (Auto) 83.1 H, Lymph % (Auto) 6.3 L, Hendricks % (Auto) 9.5, Eos % (Auto) 0.3, Baso % (Auto) 0.4, Absolute Neuts (auto) 6.3, A bsolute Lymphs (auto) 0.48 L, Nucleated RBC % 0 EKG Initial EKG: Attestation: I personally reviewed and interpreted this EKG as follows: Prior EKG tracings: available for review (Ventricular paced rhythm.) Imaging Radiology Impression Brain CT 12/02/24 14:26 IMPRESSION: 1. Stable findings when compared to the previous study. 2. Chronic age-related microvascular ischemic changes. 3. Age-related involutional/senescent changes are stable. 4. No acute intracranial findings. Reading Location: [facility] Chest X-Ray 12/02/24 14:45 IMPRESSION: Hyperinflation. The lungs are clear. Reading Location: RAD Hip/Pelvis X-Ray 12/02/24 14:50 IMPRESSION: Acute transverse fracture of the subcapital region of the proximal femur with cephalic migration of the distal fracture fragment. Reading Location: RAD Assessment & Plan Assessment/Plan (1) Closed fracture of left hip: PLAN: Status post mechanical fall. According the patient he had fallen 2 days prior to presentation. Patient has a myriad of complaints including chest pain though I feel that it is more likely most musculoskeletal rather than cardiac in origin. Will cycle troponins and if those are negative, resuming his BMP returns unremarkable the patient should be medically cleared for surgery on the . Meantime, patient will be on bedrest. After surgery, patient will see physical and Occupational Therapy. Would anticipate the patient requiring shelter facility when he is medically ready for discharge. Says he was down for roughly 2 days, CPK was ordered in the emergency room and currently pending at this time. I does appear to be dry so I will give him some IV fluids. Patient also complaining of chills so we will check COVID, influenza and RSV. PLAN: Plan Chronic conditions * History of stroke: Hold aspirin for now on then resume after surgery. * Diabetes mellitus type 2: Will hold his Ozempic was here in the hospital. Continue with glargine and sliding scale insulin. Check an A1c * Depression/anxiety: Continue with risperidone * Hyperlipidemia: Continue with statin. * Status post valve replacement and pacemaker: EKG is ventricular paced with no acute changes. On cycling troponins because he was complaining of chest pain (in addition to many other issues) continue with metoprolol succinate * Hypertension: Continue with losartan VTE prophylaxis with SCDs for now. CODE STATUS: Addressed with the patient. Patient wishes to be full code. Charges/Coding Visit Charges Inpatient E&M: 02306 Init Hosp L3
[2024-12-02 16:22] VITALS: BP 149/67; PULSE 63; RESP 17; TEMP 36.6; O2SAT 94
[2024-12-02 16:28] LABS: Bacteria 0 SEEN /hpf (None Seen); Mucous, Urine 0 SEEN /hpf (<or=2+); Squamous Epithelial Cells - UA 0 SEEN /hpf (0-5); White Blood Cells 0 SEEN /hpf (0-5)
[2024-12-02 16:33] LABS: Color, Urine Yellow (Yellow); Glucose, Dipstick Normal (Normal); Ketone-Dipstick 5 mg/dl (Negative); Leukocyte Esterase-Dipstick Negative /ul (Negative); Nitrite-Dipstick Negative (Negative); Occult Blood-Urine Negative /ul (Negative); Protein-Dipstick 30 mg/dl (Negative); Urine Bilirubin Dipstick Negative (Negative); Urine Clarity Clear (Clear); Urine Urobilinogen 1 mg/dl (Normal)
--- NOTE | 2024-12-02 16:37 | CONS.ORTHO ---
HPI Consult Data Date of Consult: 12/02/24 HPI Narrative HPI Narrative: DAMON WYLIE, is a 69 M who presents with L hip femoral neck fracture. Patient was down after 2 days. fell at home. had prior right JENI. uses a cane and walker. tripped, ground level fall. pending hospitalist admit. [facility] Medical History Wears dentures Wears glasses Arthritis Diabetes Back pain Former smoker Hx of echocardiogram History of stress test Cardiology follow-up encounter Cellulitis of right lower extremity Arthritis Smoker Diabetes mellitus with diabetic polyneuropathy Amputation foot, unilat Depression Chronic pain Hepatitis Sleep apnea Former smoker Chest pain Hypertension TIA (transient ischemic attack) H/O alcohol abuse H/O drug abuse Anxiety Toe amputee Depression Pruritus Vitamin D deficiency Insomnia Hepatitis C Diabetic foot ulcer Debility Type 2 diabetes mellitus with diabetic polyneuropathy Delayed wound healing Non-pressure chronic ulcer of other part of right foot with fat layer exposed H/O alcohol abuse H/O drug abuse Hammer toe of right foot Hyperlipidemia Hypertension Cellulitis Diabetic foot infection Preop cardiovascular exam Troponin I above reference range Anxiety Stroke Diabetes Home Medications ?Medication ?Instructions ?Recorded ?Last Taken ?Type aspirin 81 mg tablet,delayed 81 mg PO DAILY@0800 heart health 07/08/20 11/29/24 History release rosuvastatin 40 mg tablet 40 mg PO QHS CHOLESTEROL 09/13/22 11/29/24 History ascorbic acid (vitamin C) 250 mg 250 mg PO DAILY health 11/20/23 11/29/24 History tablet ferrous sulfate 325 mg (65 mg 325 mg PO DAILY health 11/20/23 11/29/24 History iron) tablet insulin glargine U-300 conc 300 45 unit subcut DAILY diabetes 11/20/23 11/29/24 History unit/mL (3 mL) subcutaneous pen (Toujeo Max U-300 SoloStar) losartan 25 mg tablet 25 mg PO DAILY blood pressure 11/20/23 11/29/24 History melatonin 10 mg capsule 10 mg PO DAILY PRN insomnia 11/20/23 11/29/24 History metoprolol succinate 25 mg 25 mg PO DAILY blood pressure 11/20/23 11/29/24 History tablet,extended release 24 hr omeprazole 20 mg capsule,delayed 40 mg PO DAILY GERD 11/20/23 11/29/24 History release risperidone 1 mg tablet 1 mg PO BID bipolar 11/20/23 11/29/24 History semaglutide 0.25 mg or 0.5 mg (2 0.5 mg subcut MO diabetes 11/20/23 11/24/24 History mg/3 mL) subcutaneous pen injector (Ozempic) Allergy/AdvReac Type Severity Reaction Status Date / Time No Known Allergies Allergy Verified 12/02/24 14:09 Family History Other Cancer Diabetes Surgical History History of permanent cardiac pacemaker placement History of aortic valve replacement Presence of right artificial hip joint Hx of cardiac cath History of hip surgery History of cholecystectomy History of transmetatarsal amputation of right foot Social History household members: spouse current occupational status: disabled Smoking Status: Former smoker alcohol intake: never substance use type: does not use Vital Signs Vital Signs Vital Signs: 12/02/24 14:11 12/02/24 14:16 12/02/24 16:18 Temperature 99 F Temperature Source Oral Pulse Rate 65 Respiratory Rate 18 Respiratory Effort Normal Non-Labored Normal Non-Labored Respiratory Depth Normal Respiratory Pattern Normal Normal Blood Pressure 131/66 H Blood Pressure Mean 87 Pulse Ox 96 Oxygen Delivery Method Room Air 12/02/24 16:22 Temperature 98 F Temperature Source Pulse Rate 63 Respiratory Rate 17 Respiratory Effort Respiratory Depth Respiratory Pattern Blood Pressure 149/67 H Blood Pressure Mean 94 Pulse Ox 94 Oxygen Delivery Method Weight Weight: 203 lb 14.841 oz Body Mass Index (BMI) 26.9 Physical Exam Const alert, no apparent distress and well nourished Extremity normal capillary refill Extremity Narrative: decr sens LE's but states neuropathy chronically and no change, closed L hip, soft thigh, nvi distal good DP pulse and wiggles toes and ankles. Lab / Micro Data 12/02/24 14:30 12/02/24 14:30 Labs: Laboratory Results - last 24 hr 12/02/24 14:30: WBC 7.6, RBC 4.66, Hgb 13.8, Hct 41.4, MCV 88.8, MCH 29.6, MCHC 33.3, RDW Std Deviation 43.1, RDW Coeff of Hakeem 13.4, Plt Count 95 L, MPV 10.4, Immature Gran % (Auto) 0.400, Neut % (Auto) 83.1 H, Lymph % (Auto) 6.3 L, [place] % (Auto) 9.5, Eos % (Auto) 0.3, Baso % (Auto) 0.4, Absolute Neuts (auto) 6.3, Absolute Lymphs (auto) 0.48 L, Nucleated RBC % 0 12/02/24 16:20: Urine Color Yellow, Urine Clarity Clear, Urine pH 6.0, Ur Specific [place] 1.010, Urine Protein 30 H, Urine Glucose (UA) Normal, Urine Ketones 5 H, Urine Occult Blood Negative, Urine Nitrite Negative, Urine Bilirubin Negative, Urine Urobilinogen 1 H, Ur Leukocyte Esterase Negative Imaging Radiology Impression Brain CT 12/02/24 14:26 IMPRESSION: 1. Stable findings when compared to the previous study. 2. Chronic age-related microvascular ischemic changes. 3. Age-related involutional/senescent changes are stable. 4. No acute intracranial findings. Reading Location: [facility] Chest X-Ray 12/02/24 14:45 IMPRESSION: Hyperinflation. The lungs are clear. Reading Location: [id number] Hip/Pelvis X-Ray 12/02/24 14:50 IMPRESSION: Acute transverse fracture of the subcapital region of the proximal femur with cephalic migration of the distal fracture fragment. Reading Location: [id number] agree displaced NOF fracture garden 3. Assessment & Plan Assessment/Plan (1) Closed fracture of left hip: PLAN: 69 M with L displaced femoral neck fracture. Recommend surgery although nonsurgical treatment is an option in some very medically unwell patients typically recommended for surgery. My preferred surgical option here would be hemiarthroplasty cemented. This is due to the low rates of instability as well as better outcomes typically in the literature with cementing. I explained the pros cons risk benefits of nonoperative versus surgical intervention the patient. They signed the consent form for left hip hemiarthroplasty as well as possible need for blood products. I also spoke with the patient's daughter who lives out of town they will come in likely either later today or tomorrow. Plan to the patient ODALYS now n.p.o. at midnight to do the case tomorrow after noon. They will be admitted under the hospitalist and optimized for surgery. Pros and cons risks and benefits were discussed with the patient including but not limited to infection, pain, stiffness, bleeding, damage to surrounding structures, neurovascular injury, recurrence or retear, failure or wear of hardware or fixation, instability, fracture, deep vein thrombosis and pulmonary embolism, anesthetic risks, , patient dissatisfaction, need for further surgery and other risks. Patient understood and wished to proceed with surgery, and signed the informed consent documentation.
[2024-12-02 16:42] LABS: Red Blood Cells-Urine 0 SEEN /hpf (0-5)
[2024-12-02 17:23] VITALS: BMI 27.6
[2024-12-02 17:25] LABS: Troponin T High Sensitivity 56 ng/L (<=22)
[2024-12-02 17:42] LABS: ALB/GLOB Ratio 1.5 RATIO (0.9-2.4); AST(SGOT) 44 U/L (<=37); Alanine Aminotransfer ALT/SGPT 40 U/L (<=46); Albumin, Serum 4.3 g/dL (3.4-4.8); Alkaline Phosphatase 63 U/L (40-129); Anion Gap 14 (5-15); BUN 25 mg/dL (4-19); BUN/Creat Ratio 25.1 RATIO (10-20); CPK Total, Creatine Kinase 472 U/L (24-195); Calcium 9.4 mg/dL (7.6-11.0); Carbon Dioxide 23.7 mmol/L (22.0-29.0); Chloride 103 mmol/L (96-108); EST Glomerular Filtration Rate 84 (>60); Estimated Creatinine Clearance 78.79 ml/min; Globulin 2.9 g/dL (2.2-4.2); Glucose 214 mg/dL (70-99); Potassium 3.3 mmol/L (3.3-5.1); Protein, Total 7.2 g/dL (5.9-8.4); Sodium Level 141 mmol/L (133-145); Total Bilirubin 2.19 mg/dL (0.00-1.30)
[2024-12-02 18:27] VITALS: BP 118/47; PULSE 68; RESP 16; TEMP 36.9; O2SAT 95
[2024-12-02] MEDS: 0.9% Normal Saline (1000mL) 1,000 ML 150 ML IV (18:50)
[2024-12-02 19:05] LABS: TROPONIN VARIANCE 2 HR 10
[2024-12-02 23:21] VITALS: BP 124/62; PULSE 100; RESP 16; TEMP 36.9; O2SAT 94
[2024-12-02] MEDS: Insulin Lispro 100 UNIT/ML INSULN.PEN SC (23:33)
[2024-12-02] MEDS: Atorvastatin Calcium 80 MG Tablet PO (23:35)
[2024-12-02] MEDS: RisperiDONE 1 MG Tablet PO (23:35)
[2024-12-02] MEDS: Senna/Docusate Sodium 1 Tablet 2 TABLET PO (23:36)
[2024-12-02] MEDS: oxyCODONE 5 MG Tablet PO (23:36)
[2024-12-02] MEDS: Acetaminophen 325 MG Tablet 650 MG PO (23:36)
[2024-12-02 23:46] LABS: Bedside Glucose 174 mg/dL (74-106)
[2024-12-03] VITALS (8 sets, daily range): BP systolic 98–128; BP diastolic 53–73; PULSE 70–93; RESP 15–18; TEMP 36.4–37; O2SAT 89–100; BMI 27.6
[2024-12-03 01:32] LABS: TROPONIN VARIANCE 4 HR 13
[2024-12-03 01:34] LABS: Troponin T High Sens 4 HR 69 ng/L (<=22)
[2024-12-03] MEDS: 0.9% Saline Lock 10 ML Syringe IV ×4 (02:30→21:53)
[2024-12-03] MEDS: Acetaminophen 325 MG Tablet 650 MG PO ×2 (05:22→21:50)
[2024-12-03 07:21] LABS: Bedside Glucose 156 mg/dL (74-106)
[2024-12-03 07:45] LABS: Absolute Lymphocyte Count 0.59 X10^3/uL (0.83-4.51); Basophil# 0.02 X10^3/uL; Basophil% 0.5 % (0-1); Eosinophil# 0.16 X10^3/uL; Eosinophils% 3.9 % (0-5); Hematocrit 33.9 % (40-54); Hemoglobin 11.4 g/dL (13.0-16.5); Lymphocyte # 0.59 X10^3/ul (0.83-4.51); Lymphocyte % 14.4 % (19-41); Mean Corp Hgb Conc 33.6 g/dL (32-36); Mean Corpuscular Hgb 30.2 pg (27.0-32.0); Mean Corpuscular Volume 89.7 fL (80-94); Mean Platelet Vol. 10.1 fl (6.2-12.0); Monocyte# 0.36 X10^3/uL; Monocyte% 8.8 % (0-10); NRBC Flagged by Analyzer 0 % (0-5); Neutrophil # 2.95 X10^3/uL (2.7-7.7); Neutrophil % 71.9 % (47-70); POSITIVE COUNT YES; POSITIVE DIFFERENTIAL YES; Platelet Count 69 K/mm3 (150-450); RBC Distribution Width CV 13.7 % (11.6-14.6); RBC Distribution Width SD 44.7 fl (35.1-43.9); Red Blood Count 3.78 M/mm3 (4.6-6.2); White Blood Count 4.1 K/mm3 (4.4-11.0)
[2024-12-03 07:57] LABS: Differential Indicated SCAN CRITERIA MET
[2024-12-03 08:18] LABS: Platelet Estimate MOD DEC (ADEQ)
[2024-12-03 09:28] LABS: Anion Gap 11 (5-15); BUN 20 mg/dL (4-19); BUN/Creat Ratio 22.3 RATIO (10-20); Calcium 8.5 mg/dL (7.6-11.0); Carbon Dioxide 23.4 mmol/L (22.0-29.0); Chloride 104 mmol/L (96-108); Creatinine, Serum 0.9 mg/dL (0.8-1.3); EST Glomerular Filtration Rate 92 (>60); Estimated Creatinine Clearance 85.02 ml/min; Glucose 151 mg/dL (70-99); Potassium 3.4 mmol/L (3.3-5.1); Sodium Level 138 mmol/L (133-145)
--- NOTE | 2024-12-03 09:51 | NURSING ---
due to pt blood pressure and troponin, this RN called city secretary to see if the anesthesiologist wanted the metoprolol dose to still be administered before surgery this morning. city secretary said she will ask the anesthesiologist, Dr. Goss if ok to give and get back to this RN.
[2024-12-03] MEDS: Metoprolol(XL)Succ 25 MG Tablet PO (10:24)
--- NOTE | 2024-12-03 10:50 | CASEMGMT ---
TAMMIE CHILDS Assessment: Face to Face with pt for initial transition planning/care coordination assessment. RN NAZ introduced self and role at [facility], pt voices understanding and consents to assessment. Pt is A&O x4 and answers all questions appropriately at this time. Pt lying in bed in no distress. Care providers, pharmacy, and demographics verified/updated. Admitting Dx: Hip fracture Strata Score: 3 PCP:[facility], pt states that his PCP is in the process of switching so he does not know who it is. Specialists:cardio, mental health, pod at [facility]- Pt did not know names Preferred Pharmacy: [facility] Insurance: [employer] Prescription Benefit: yes LNOK: Francy Kent, ex Living Arrangements: Pt lives alone in a ground level apt with no steps to enter. Pt reports he was I in ADLs. He gets MOW 5 days a week and does get his own groceries otherwise for sandwiches. Pt states he is supposed to do his own laundry but has been tired since his heart surgery in September. Transportation: Pt drives self and denies concerns with transportation. DME:[facility] with sufficient supply of strips and lancets, sufficient supply of insulin and needles HHC/SNF: Pt reports he is supposed to have aide services through [facility] [employer] for twice a week to equal 10 hours but the aides car blew up and they do not have another person to replace the aide. Pt has had [facility] HHC and has been to [facility] TCU in the past. Pt states he does not know his plan after this hospitalization. Pt has a cane, walker and medic alert at old house referring to house prior to divorce but states he will not be able to get these items. Discussed local in network DME providers, pt chose [employer] for equipment needs. Pt aware RN CM will follow with him post surgery. Pt states no further concerns/needs. CM to follow. Advised pt to ask CM if any further questions/concerns/needs arise, voices understanding. Pt Goal: Pt unable to state goal Plan: TBD pending surgery and therapy nuria Olea RN, CM
--- NOTE | 2024-12-03 10:57 | PCM.PN.HOSP ---
Reason for Visit Reason for Visit: Diagnoses Fracture of unspecified part of neck of left femur, initial encounter for closed fracture (12/02/24) Subjective Subjective Patient was seen and examined today, I talked with Dr. Burch ([facility]) and anesthesia here at the hospital about the patient's medical care. Patient has a history of a bioprosthetic aortic valve which was placed in December 2023 at the [facility]. Patient gets his medical care slowly at the [facility]. He denies having a history of myocardial infarction or stent placement. On the patient's admission narrative here at the hospital, it was mentioned that he had chest pain but the patient does not recall whether he actually had chest pain when he was brought into the ER for evaluation here. He had fallen approximately 48 hours ago and was unable to get to a phone to call for help. Workup in the emergency room included labs, patient's CBC showed a normal white blood cell count and hemoglobin, chemistry profile was remarkable for a BUN of 25 and a glucose of 214, patient's CPK was elevated at 472 and his bilirubin was 2.19. AST was slightly elevated at 44. Patient had troponins drawn, first troponin was 56, second troponin was 65, and third troponin was 69. Patient's EKG showed a ventricular paced rhythm. Patient's chest x-ray showed hyperinflation but no infiltrates or congestive heart failure. It appears that the patient's elevated troponin fits a pattern of demand ischemia from his hip fracture. At this time I feel that the patient is stable to undergo hemiarthroplasty. I have ordered an echocardiogram on the patient to assess LV function. Objective Data Objective Data Vital Signs: Vital Signs Temp Pulse Resp BP Pulse Ox O2 Del Method O2 Flow Rate 97.6 F L 89 18 108/58 L 98 Nasal Cannula 2 12/03/24 07:45 12/03/24 10:24 12/03/24 07:45 12/03/24 10:24 12/03/24 07:45 12/03/24 07:47 12/03/24 07:47 Oxygen Flow Rate (L/min) 2 Oxygen Delivery Method Nasal Cannula Weight: 92.5 kg Body Mass Index (BMI) 27.6 Intake & Output: Intake and Output for Last 24 Hours 12/01/24 12/02/24 12/03/24 23:59 23:59 23:59 Intake Total 1000 / 1000 1000 / 1000 Output Total 500 / 500 Balance 1000 / 1000 500 / 500 Lab / Micro Data 12/03/24 06:39 12/03/24 06:39 Labs: Laboratory Results - last 24 hr 12/02/24 14:30: WBC 7.6, RBC 4.66, Hgb 13.8, Hct 41.4, MCV 88.8, MCH 29.6, MCHC 33.3, RDW Std Deviation 43.1, RDW Coeff of Hakeem 13.4, Plt Count 95 L, MPV 10.4, Immature Gran % (Auto) 0.400, Neut % (Auto) 83.1 H, Lymph % (Auto) 6.3 L, [place] % (Auto) 9.5, Eos % (Auto) 0.3, Baso % (Auto) 0.4, Absolute Neuts (auto) 6.3, Absolute Lymphs (auto) 0.48 L, Nucleated RBC % 0, Sodium 141, Potassium 3.3, Anion Gap 14, BUN 25 H, Creatinine 1.0, Estim Creat Clear Calc 78.79, Est GFR (MDRD) Non-Af 84, BUN/Creatinine Ratio 25.1 H, Glucose 214 H, Calcium 9.4, Total Bilirubin 2.19 H, AST 44 H, ALT 40, Alkaline Phosphatase 63, Total Creatine Kinase 472 H, Total Protein 7.2, Albumin 4.3, Globulin 2.9, Albumin/Globulin Ratio 1.5 12/02/24 16:20: Urine Color Yellow, Urine Clarity Clear, Urine pH 6.0, Ur Specific [place] 1.010, Urine Protein 30 H, Urine Glucose (UA) Normal, Urine Ketones 5 H, Urine Occult Blood Negative, Urine Nitrite Negative, Urine Bilirubin Negative, Urine Urobilinogen 1 H, Ur Leukocyte Esterase Negative, Urine RBC 0 SEEN, Urine WBC 0 SEEN, Ur Squamous Epith Cells 0 SEEN, Urine Bacteria 0 SEEN, Urine Mucus 0 SEEN 12/02/24 16:25: Troponin T High Sens 56 H* 12/02/24 18:15: Delta Troponin T 10, Troponin T Hi Sens 2 Hr 65 H* 12/02/24 20:22: Troponin T Hi Sens 4Hr 69 H* 12/02/24 23:27: POC Glucose 174 H 12/03/24 06:39: WBC 4.1 L, RBC 3.78 L, Hgb 11.4 L, Hct 33.9 L, MCV 89.7, MCH 30.2, MCHC 33.6, RDW Std Deviation 44.7 H, RDW Coeff of Hakeem 13.7, Plt Count 69 L, MPV 10.1, Immature Gran % (Auto) 0.500, Neut % (Auto) 71.9 H, Lymph % (Auto) 14.4 L, [place] % (Auto) 8.8, Eos % (Auto) 3.9, Baso % (Auto) 0.5, Absolute Neuts (auto) 3.0, Absolute Lymphs (auto) 0.59 L, Nucleated RBC % 0, Platelet Estimate MOD DEC, Sodium 138, Potassium 3.4, Chloride Direct 104, Carbon Dioxide 23.4, Anion Gap 11, BUN 20 H, Creatinine 0.9, Estim Creat Clear Calc 85.02, Est GFR (MDRD) Non-Af 92, BUN/Creatinine Ratio 22.3 H, Glucose 151 H, Calcium 8.5 12/03/24 06:51: POC Glucose 156 H Micro: Microbiology 12/02/24 22:45 Mucosa - Nasopharyngeal SARS-CoV-2, Influenza & RSV (PCR) - Final Radiography Diagnostic Testing: Radiology Impression Brain CT 12/02/24 14:26 IMPRESSION: 1. Stable findings when compared to the previous study. 2. Chronic age-related microvascular ischemic changes. 3. Age-related involutional/senescent changes are stable. 4. No acute intracranial findings. Reading Location: [facility]-1 Chest X-Ray 12/02/24 14:45 IMPRESSION: Hyperinflation. The lungs are clear. Reading Location: [facility] Hip/Pelvis X-Ray 12/02/24 14:50 IMPRESSION: Acute transverse fracture of the subcapital region of the proximal femur with cephalic migration of the distal fracture fragment. Reading Location: [facility] Physical Exam Const alert, oriented x3, no apparent distress, average body habitus and healthy appearing General Appearance: cooperative, well kempt and well developed Orientation / Consciousness: awake, oriented to person, oriented to place and oriented to time HEENT normocephalic, head/scalp atraumatic and moist oral mucous membranes Eyes PERRL, EOMs intact bilaterally and conjunctivae normal Neck supple, no JVD, thyroid normal and no carotid bruits General: trachea midline Resp normal respiratory effort, no retractions, no use of accessory muscles and clear to auscultation bilaterally Auscultation: Negative for rales, rhonchi or wheezes Cardio regular rate, regular rhythm, S1 normal heart sound, S2 normal heart sound, no murmurs, no rub and no gallops GI normal to inspection, nondistended, normoactive bowel sounds, soft to palpation, non-tender and non-distended Extremity Extremity Narrative: Patient's lower extremities were not examined for range of motion due to the patient's left hip fracture Skin no rashes or lesions noted General Skin Exam: no breakdown Neuro oriented x3, CN's II-XII intact bilaterally, no focal motor deficits and no sensory deficits noted Sensorium / Orientation: awake and alert Speech: speech normal Psych affect normal Assessment & Plan Assessment/Plan (1) Closed fracture of left hip: PLAN: Plan 1. Subcapital fracture of the proximal left femur secondary to osteoporosis-patient is scheduled for ORIF this afternoon, I feel at this time that the patient is stable for surgery, he has no known history of coronary artery disease, he does have a bioprosthetic aortic valve. I will obtain an echocardiogram prior to surgery, I talked with Dr. Burch concerning this case and he is in agreement that the patient should undergo surgery and feels that he is not high risk given the information we have been able to glean from the patient and his medical record. #2 valvular heart disease-patient has a bioprosthetic aortic valve in place #3 type 2 diabetes-patient's blood sugars will be monitored by fingerstick blood sugars, sliding scale insulin will be administered as needed #4 cerebrovascular disease-patient has a previous history of stroke according to the patient, he is on 81 mg aspirin daily #5 essential hypertension-patient will remain on his present medications Total clinical time spent by myself addressing patient's medical issues, reviewing all of his data, and collaborating with patient's care team: 50 minutes Charges/Coding Visit Charges Inpatient E&M: 08909 Subs Hosp L3
--- NOTE | 2024-12-03 11:05 | ECHOCS_ITS ---
Reason For Study Reason For Study: Pre Op Procedure This was a 2D Doppler, Color Flow transthoracic echocardiogram. The study was technically difficult. Contrast injection was performed. Patient scanned supine due to left hip fracture. Exam performed portable in patient room. Left Ventricle Normal LV size. The estimated ejection fraction is 60 %. No evidence for diastolic dysfunction. No regional wall motion abnormalities noted. Right Ventricle Normal RV size. ICD or pacer leads identified within the right ventricle. Normal systolic function. Atria The left and right atria are normal. ICD or pacer leads identified within the right atrium. No doppler evidence for ASD. Mitral Valve There is no mitral valve stenosis. No mitral valve insufficiency. Tricuspid Valve There is no tricuspid stenosis. No tricuspid valve insufficiency. Aortic Valve Trisinus/trileaflet aortic valve. There is no aortic stenosis. No aortic valve insufficiency. Pulmonic Valve There is no pulmonic valvular stenosis. No pulmonic valve insufficiency. Great Vessels Normal sized aortic root. Pericardium/Pleural No pericardial effusion. Medication Diluted definity 2ml given slow IV push to enhance endocardial definition. MMode/2D Measurements & Calculations LVIDd: 5.0 cm IVSd: 1.1 cm LVOT diam: 2.0 cm LVIDs: 3.6 cm LVPWd: 1.1 cm RVDd: 3.8 cm FS: 28.0 % LVOT area: 3.3 cm2 LAV(MOD-bp): 45.9 ml LVAd ap4: 34.5 cm2 SV(MOD-sp4): 66.0 ml LAV(MOD-bp) Indexed: 21.4 ml/m2 LVLd ap4: 8.5 cm SI(MOD-sp4): 30.8 ml/m2 LAV(MOD-sp2): 50.2 ml EDV(MOD-sp4): 114.8 ml LAV(MOD-sp4): 42.3 ml EDV(sp4-el): 119.5 ml LVAs ap4: 20.8 cm2 LVLs ap4: 7.6 cm ESV(MOD-sp4): 48.8 ml ESV(sp4-el): 48.7 ml EF(MOD-sp4): 57.5 % EF(sp4-el): 59.2 % SV(sp4-el): 70.8 ml LA A4 area: 17.9 cm2 RA A4 area: 21.2 cm2 Time Measurements MV dec time: 0.16 sec Doppler Measurements & Calculations MV E max bereket: 59.8 cm/sec Lat Peak E' Bereket: 13.9 cm/sec Med Peak E' Bereket: 13.7 cm/sec MV A max bereket: 91.0 cm/sec E/E' lat: 4.3 E/E' med: 4.4 MV E/A: 0.66 MV V2 max: 98.4 cm/sec MV P1/2t max bereket: 55.3 cm/sec Ao V2 max: 179.1 cm/sec MV max P.9 mmHg MV P1/2t: 50.9 msec Ao max P.9 mmHg MV V2 mean: 59.8 cm/sec Ao V2 mean: 123.2 cm/sec MV mean P.6 mmHg MV dec slope: 318.7 cm/sec2 Ao mean P.0 mmHg MV V2 VTI: 20.1 cm MVA(P1/2t): 4.3 cm2 Ao V2 VTI: 33.2 cm AV (velocity ratio): 0.60 MVA(VTI): 3.2 cm2 KATLIN(I,D): 2.0 cm2 KATLIN(V,D): 2.1 cm2 LV V1 max: 113.2 cm/sec SV(LVOT): 65.1 ml LV V1 max P.2 mmHg LV V1 mean P.8 mmHg LV V1 mean: 76.4 cm/sec LV V1 VTI: 19.9 cm ECHO/Echo Complete W/ Contrast Interpretation Summary The estimated ejection fraction is 60 %. No evidence for diastolic dysfunction. Ordering Physician: Jose España Performed By: Alec Kennedy RCS
[2024-12-03 11:47] LABS: Bedside Glucose 131 mg/dL (74-106)
--- NOTE | 2024-12-03 13:51 | CASEMGMT ---
Social Work- spoke with Paolo, [facility], who called to check on pt status. Paolo contact number is [phone] ext [phone]. Paolo will call back to check on discharge planning on Sunday. GERALD Sykes
--- NOTE | 2024-12-03 14:42 | CASEMGMT ---
SW met with pt to conduct SDOH assessment. Pt provided resources outlined in assessment. Pt reports that he would prefer inpatient therapy if able at discharge. SW provided education to pt on SNF referrals and parameters; SW will follow up following pt procedure and therapy. GERALD Sykes
[2024-12-03] MEDS: 0.9% Normal Saline (1000mL) 1,000 ML 15 ML IV (15:48)
[2024-12-03 16:07] LABS: Bedside Glucose 147 mg/dL (74-106)
--- NOTE | 2024-12-03 16:09 | PCM.PRE.AN2 ---
ASA Classification* ASA Classification ASA Classification: 4 Assessment & Plan Anesthesia* Anesthesia Assessment Anesthesia Assessment: Discussed sedation and/or anesthesia options, risks, benefits, and alternatives with patient/parents/legal guardian/POA. Questions invited. The patient/parents/legal guardian/POA seems to understand and agrees to proceed with anesthesia plan. Reviewed the physical assessment, medical history, allergy history and patient home medications list prior to surgery/procedure/anesthetic and documented any changes. Performed airway and anesthesia risk assessments. Anesthesia Type Anesthesia Type: General History Source History Obtained from:: Patient and Chart Anesthesia Focused Assessment* Temperature: 98.6 F Pulse Rate: 88 Blood Pressure: 116/60 Respiratory Rate: 15 Pulse Ox: 100 Oxygen Delivery Method: Room Air Oxygen Flow Rate (L/min): 2 Airway Assessment Mouth opens: >3 cm Mallampati Score: II Teeth Condition: Intact Neck Range of motion (ROM): Full ROM Focused Labs Anesthesia Preop lab: CBC WBC 4.1 K/mm3 (4.4-11.0) L 12/03/24 06:39 12/03/24 RBC 3.78 M/mm3 (4.6-6.2) L 12/03/24 06:39 12/03/24 Hgb 11.4 g/dL (13.0-16.5) L 12/03/24 06:39 12/03/24 Hct 33.9 % (40-54) L 12/03/24 06:39 12/03/24 Plt Count 69 K/mm3 (150-450) L 12/03/24 06:39 12/03/24 CHEMISTRY Potassium 3.4 mmol/L (3.3-5.1) 12/03/24 06:39 12/03/24 Sodium 138 mmol/L (133-145) 12/03/24 06:39 12/03/24 Magnesium 1.8 mg/dL (1.6-2.6) 09/18/22 09:42 09/18/22 Phosphorus 3.1 mg/dL (2.5-4.9) 12/10/23 09:30 12/10/23 BUN 20 mg/dL (4-19) H 12/03/24 06:39 12/03/24 Creatinine 0.9 mg/dL (0.8-1.3) 12/03/24 06:39 12/03/24 Glucose 151 mg/dL (70-99) H 12/03/24 06:39 12/03/24 POC Glucose 147 mg/dL (74-106) H 12/03/24 15:45 12/03/24 TSH 0.83 uIU/mL (0.358-3.74) 12/10/23 09:30 12/10/23 COAG PT 14.3 SECONDS (11.7-14.9) 12/10/23 09:30 12/10/23 Pre-Assessment Diagnosis/Proposed Procedure Planned Operative Procedure(s): LEFT Hip Hemiarthroplasty Anesthesia History Anesthesia History - filter tip catcher: Anesthesia History - filter tip catcher Hx Hospitalization No 09/13/22 10:47 Any Problems With Anesthesia No 12/02/24 23:43 Cholinesterase deficiency No 12/02/24 23:43 You/Your Family Experience No 12/02/24 23:43 fever (hyperthermia) with Relationship Recent Exposure to Contagious No 12/02/24 23:43 Disease Does patient have nerve No 12/02/24 23:43 stimulator Patient instructed to have device shut off --Does patient have Pacemaker Yes 12/03/24 13:06 or ICD? When Was Last Pacemaker Check Yes, just recently 12/02/24 23:43 QUESTION #4 FULL TEXT: You/Your Family Experience fever (hyperthermia) with Anesthesia Last Oral Intake Last Oral intake: Last Oral Intake NPO since 00:00 12/03/24 13:06 Meds taken in AM with sips of Yes 12/03/24 13:06 water? Meds patient instructed to SEE MAR 12/03/24 13:06 take am of surgery PONV PONV - filter tip catcher: PONV - filter tip catcher Female HX of Motion Sickness HX of N/V After Surgery Non-Smoker Duration of Surgery greater than 60 minutes Number of Risk Factors PONV Score Any additional information?: Yes Female: No HX of Motion Sickness: No HX of N/V After Surgery: No Non-Smoker: No Duration of Surgery greater than 60 minutes: Yes Number of Risk Factors: 1 PONV Score: Low Risk Height & Weight Height & Weight: Anesthesia: Height & Weight Height 6 ft 12/03/24 13:06 Weight: 92.5 kg 12/03/24 13:06 Body Mass Index (BMI) 27.6 12/03/24 13:06 Respiratory Assessment Respiratory Assessment - filter tip catcher: Respiratory Tract Infection Hx - filter tip catcher Hx Respiratory Tract Infection No 12/02/24 23:43 STOP Sleep Apnea STOP Sleep Apnea - filter tip catcher: STOP Sleep Apnea - filter tip catcher Hx Hypertension Yes 12/02/24 17:23 Hx Sleep Apnea No 12/02/24 17:23 CPAP Yes 11/20/23 16:19 BIPAP No 11/20/23 16:19 Do you snore loudly (louder No 12/02/24 17:23 than talking or can be heard Do you often feel tired/ No 12/02/24 17:23 fatigued/ sleepy during daytime? Has anyone observed you stop No 12/02/24 17:23 breathing during sleep? STOP Results Negative 12/02/24 17:23 QUESTION #5 FULL TEXT : Do you snore loudly (louder than talking or can be heard through closed doors)? 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 Specify any problems Hx of Preganancy in last 3 N/A 12/02/24 17:23 Months Nurse Filling Out Transfusion ABROCK 12/02/24 17:23 & Questions: Date: 12/02/24 12/02/24 17:23 Time: 18:12 12/02/24 17:23 Patient unable to answer at this time (ie. confused, unrespo /Reproduction History /Reproductive History - filter tip catcher: /Reproductive Hx- filter tip catcher Hx Now No 12/02/24 23:43 Gestational Age (in weeks): EDC: Hx Hx Para Hx Section SAB No 12/02/24 23:43 Active Medications Active Medications: Current Medications Generic Name Dose Route Start Last Admin Trade Name Freq PRN Reason Stop Dose Admin Acetaminophen 650 mg 12/02/24 17:22 12/03/24 05:22 Acetaminophen 325 Mg Tablet PO 650 mg Q6H PRN PRN Administration Pain 1-10 Or Fever >100.7 Atorvastatin Calcium 80 mg 12/02/24 22:00 12/02/24 23:35 Atorvastatin Calcium 80 Mg Tablet PO 80 mg QHS KAREN Administration Ferrous Sulfate 325 mg 12/03/24 12:00 12/03/24 11:32 Ferrous Sulfate 325 Mg Tablet PO Not Given DAILY@1200 KAREN Glucagon 1 mg 12/02/24 17:22 Glucagon 1 Mg/Ml Syringe IM X1 PRN Hypoglycemia Protocol Dextrose 250 mls @ 0 mls/hr 12/02/24 17:22 Dextrose 10%-Water IV .Q0M PRN HYPOGLYCEMIA Protocol As Directed Sodium Chloride 100 mls @ 15 mls/hr 12/02/24 17:24 IV .Q6H40M PRN Saline Flush Sodium Chloride 100 mls @ 15 mls/hr 12/02/24 17:24 IV .Q6H40M PRN Additional IVPB Infusion Sodium Chloride 1,000 mls @ 15 mls/hr 12/03/24 15:50 12/03/24 15:48 IV 12/09/24 05:09 15 mls/hr .Q48H KAREN Administration Protocol Insulin Glargine 45 unit 12/03/24 10:00 12/03/24 10:25 Insulin Glargine-Yfgn 100 Unit/Ml Pen SC Not Given DAILY KAREN Insulin Human Lispro 0 unit 12/02/24 22:00 12/03/24 11:32 Insulin Lispro 100 Unit/Ml Insuln.Pen SC Not Given ACHS KAREN Protocol Losartan Potassium 25 mg 12/03/24 10:00 12/03/24 10:25 Losartan Potassium 25 Mg Tablet PO Not Given DAILY KAREN Protocol Melatonin 10 mg 12/02/24 22:00 Melatonin 10 Mg Tablet PO QHS PRN insomnia Metoprolol Succinate 25 mg 12/03/24 10:00 12/03/24 10:24 Metoprolol(Xl)Succ 25 Mg Tablet PO 25 mg DAILY KAREN Administration Protocol Morphine Sulfate 2 - 4 mg 12/02/24 17:22 Morphine 2 Mg/Ml Syringe IV Q3H PRN PRN Pain Score 6-10 Morphine Sulfate 2 - 4 mg 12/02/24 17:39 Morphine 4 Mg/Ml Syringe IV Q3H PRN PRN Pain Score 6-10 Ondansetron HCl 4 mg 12/02/24 17:22 Ondansetron 4 Mg/2 Ml Vial IV Q8H PRN PRN NAUSEA/VOMITING Oxycodone HCl 5 mg 12/02/24 17:22 12/02/24 23:36 Oxycodone 5 Mg Tablet PO 5 mg Q4H PRN PRN Administration Pain Score 4-10 Pantoprazole Sodium 40 mg 12/03/24 10:00 12/03/24 10:25 Pantoprazole Sodium 40 Mg Tablet PO Not Given DAILY [facility] Prochlorperazine Edisylate 5 mg 12/02/24 17:22 Prochlorperazine 10 Mg/2 Ml Vial IV Q4H PRN PRN Breakthrough nausea/vomiting Risperidone 1 mg 12/02/24 22:00 12/03/24 10:25 Risperidone 1 Mg Tablet PO Not Given BID [facility] Protocol Senna/Docusate Sodium 2 tablet 12/02/24 22:00 12/03/24 10:26 Senna/Docusate Sodium 1 Tablet PO Not Given BID [facility] Sodium Chloride 10 - 40 ml 12/02/24 17:24 12/03/24 05:19 0.9% Saline Lock 10 Ml Syringe IV 10 ml UD PRN Administration SALINE FLUSH PFS Medical History Wears dentures Wears glasses Arthritis Diabetes Back pain Former smoker Hx of echocardiogram History of stress test Cardiology follow-up encounter Cellulitis of right lower extremity Arthritis Smoker Diabetes mellitus with diabetic polyneuropathy Amputation foot, unilat Depression Chronic pain Hepatitis Sleep apnea Former smoker Chest pain Hypertension TIA (transient ischemic attack) H/O alcohol abuse H/O drug abuse Anxiety Toe amputee Depression Pruritus Vitamin D deficiency Insomnia Hepatitis C Diabetic foot ulcer Debility Type 2 diabetes mellitus with diabetic polyneuropathy Delayed wound healing Non-pressure chronic ulcer of other part of right foot with fat layer exposed H/O alcohol abuse H/O drug abuse Hammer toe of right foot Hyperlipidemia Hypertension Cellulitis Diabetic foot infection Preop cardiovascular exam Troponin I above reference range Anxiety Stroke Diabetes Home Medications ?Medication ?Instructions ?Recorded ?Last Taken ?Type aspirin 81 mg tablet,delayed 81 mg PO DAILY@0800 heart health 07/08/20 11/29/24 History release rosuvastatin 40 mg tablet 40 mg PO QHS CHOLESTEROL 09/13/22 11/29/24 History ascorbic acid (vitamin C) 250 mg 250 mg PO DAILY health 11/20/23 11/29/24 History tablet ferrous sulfate 325 mg (65 mg 325 mg PO DAILY health 11/20/23 11/29/24 History iron) tablet insulin glargine U-300 conc 300 45 unit subcut DAILY diabetes 11/20/23 11/29/24 History unit/mL (3 mL) subcutaneous pen (Toujeo Max U-300 SoloStar) losartan 25 mg tablet 25 mg PO DAILY blood pressure 11/20/23 11/29/24 History melatonin 10 mg capsule 10 mg PO DAILY PRN insomnia 11/20/23 11/29/24 History metoprolol succinate 25 mg 25 mg PO DAILY blood pressure 11/20/23 11/29/24 History tablet,extended release 24 hr omeprazole 20 mg capsule,delayed 40 mg PO DAILY GERD 11/20/23 11/29/24 History release risperidone 1 mg tablet 1 mg PO BID bipolar 11/20/23 11/29/24 History semaglutide 0.25 mg or 0.5 mg (2 0.5 mg subcut MO diabetes 11/20/23 11/24/24 History mg/3 mL) subcutaneous pen injector (Ozempic) Allergy/AdvReac Type Severity Reaction Status Date / Time No Known Allergies Allergy Verified 12/02/24 14:09 Family History Other Cancer Diabetes Surgical History History of permanent cardiac pacemaker placement History of aortic valve replacement Presence of right artificial hip joint Hx of cardiac cath History of hip surgery History of cholecystectomy History of transmetatarsal amputation of right foot Social History household members: spouse current occupational status: disabled Smoking Status: Former smoker alcohol intake: never substance use type: does not use Review of Systems (Anesthesia) ROS Narrative System reviewed and no additional complaints, except as documented. Physical Exam Const alert and oriented x3 Neck full ROM Resp normal respiratory effort Cardio Cardio Narrative: pacemaker left chest Neuro oriented x3
--- NOTE | 2024-12-03 16:12 | PN.ORTHO_ITS ---
Subjective Subjective PAD 1 pending L hip joe arthroplasty for femoral neck fracture no changes overnight, no further questions. Objective Data Objective Data Vital Signs: Vital Signs Temp Pulse Resp BP Pulse Ox O2 Del Method O2 Flow Rate 98.6 F 88 15 116/60 100 Room Air 2 12/03/24 13:06 12/03/24 13:06 12/03/24 13:06 12/03/24 13:06 12/03/24 13:06 12/03/24 13:06 12/03/24 07:47 Oxygen Flow Rate (L/min) 2 Oxygen Delivery Method Room Air Weight: 203 lb 14.841 oz Body Mass Index (BMI) 27.6 Intake & Output: Intake and Output for Last 24 Hours 12/01/24 12/02/24 12/03/24 23:59 23:59 23:59 Intake Total 1000 / 1000 1000 / 1000 Output Total 1025 / 1025 Balance 1000 / 1000 - Lab / Micro Data 12/03/24 06:39 12/03/24 06:39 Labs: Laboratory Results - last 24 hr 12/02/24 14:30: Sodium 141, Potassium 3.3, Anion Gap 14, BUN 25 H, Creatinine 1.0, Estim Creat Clear Calc 78.79, Est GFR (MDRD) Non-Af 84, BUN/Creatinine Ratio 25.1 H, Glucose 214 H, Calcium 9.4, Total Bilirubin 2.19 H, AST 44 H, ALT 40, Alkaline Phosphatase 63, Total Creatine Kinase 472 H, Total Protein 7.2, Albumin 4.3, Globulin 2.9, Albumin/Globulin Ratio 1.5 12/02/24 16:20: Urine Color Yellow, Urine Clarity Clear, Urine pH 6.0, Ur Specific [place] 1.010, Urine Protein 30 H, Urine Glucose (UA) Normal, Urine Ketones 5 H, Urine Occult Blood Negative, Urine Nitrite Negative, Urine Bilirubin Negative, Urine Urobilinogen 1 H, Ur Leukocyte Esterase Negative, Urine RBC 0 SEEN, Urine WBC 0 SEEN, Ur Squamous Epith Cells 0 SEEN, Urine Bacteria 0 SEEN, Urine Mucus 0 SEEN 12/02/24 16:25: Troponin T High Sens 56 H* 12/02/24 18:15: Delta Troponin T 10, Troponin T Hi Sens 2 Hr 65 H* 12/02/24 20:22: Troponin T Hi Sens 4Hr 69 H* 12/02/24 23:27: POC Glucose 174 H 12/03/24 06:39: WBC 4.1 L, RBC 3.78 L, Hgb 11.4 L, Hct 33.9 L, MCV 89.7, MCH 30.2, MCHC 33.6, RDW Std Deviation 44.7 H, RDW Coeff of Hakeem 13.7, Plt Count 69 L , MPV 10.1, Immature Gran % (Auto) 0.500, Neut % (Auto) 71.9 H, Lymph % (Auto) 14.4 L, [place] % (Auto) 8.8, Eos % (Auto) 3.9, Baso % (Auto) 0.5, Absolute Neuts (auto) 3.0, Absolute Lymphs (auto) 0.59 L, Nucleated RBC % 0, Platelet Estimate MOD DEC, Sodium 138, Potassium 3.4, Chloride Direct 104, Carbon Dioxide 23.4, Anion Gap 11, BUN 20 H, Creatinine 0.9, Estim Creat Clear Calc 85.02, Est GFR (MDRD) Non-Af 92, BUN/Creatinine Ratio 22.3 H, Glucose 151 H, Calcium 8.5 12/03/24 06:51: POC Glucose 156 H 12/03/24 11:28: POC Glucose 131 H 12/03/24 15:45: POC Glucose 147 H Micro: Microbiology 12/02/24 22:45 Mucosa - Nasopharyngeal SARS-CoV-2, Influenza & RSV (PCR) - Final Radiography Diagnostic Testing: Radiology Impression Echocardiogram 12/03/24 11:05 Interpretation Summary The estimated ejection fraction is 60 %. No evidence for diastolic dysfunction. Ordering Physician: Jose España Performed By: Alec Kennedy RCS Assessment & Plan Assessment/Plan (1) Closed fracture of left hip: PLAN: Will proceed with left cemented joe arthroplasty of the hip.
--- NOTE | 2024-12-03 16:56 | PN.ORTHO_ITS ---
Objective Data Objective Data Vital Signs: Vital Signs Temp Pulse Resp BP Pulse Ox O2 Del Method O2 Flow Rate 98.6 F 88 15 116/60 100 Room Air 2 12/03/24 16:19 12/03/24 16:19 12/03/24 16:19 12/03/24 16:19 12/03/24 16:19 12/03/24 16:19 12/03/24 16:19 Oxygen Flow Rate (L/min) 2 Oxygen Delivery Method Room Air Weight: 203 lb 14.841 oz Body Mass Index (BMI) 27.6 Intake & Output: Intake and Output for Last 24 Hours 12/01/24 12/02/24 12/03/24 23:59 23:59 23:59 Intake Total 1000 / 1000 1000 / 1000 Output Total 1025 / 1025 Balance 1000 / 1000 - Lab / Micro Data 12/03/24 06:39 12/03/24 06:39 Labs: Laboratory Results - last 24 hr 12/02/24 14:30: Sodium 141, Potassium 3.3, Anion Gap 14, BUN 25 H, Creatinine 1.0, Estim Creat Clear Calc 78.79, Est GFR (MDRD) Non-Af 84, BUN/Creatinine Ratio 25.1 H, Glucose 214 H, Calcium 9.4, Total Bilirubin 2.19 H, AST 44 H, ALT 40, Alkaline Phosphatase 63, Total Creatine Kinase 472 H, Total Protein 7.2, Albumin 4.3, Globulin 2.9, Albumin/Globulin Ratio 1.5 12/02/24 16:25: Troponin T High Sens 56 H* 12/02/24 18:15: Delta Troponin T 10, Troponin T Hi Sens 2 Hr 65 H* 12/02/24 20:22: Troponin T Hi Sens 4Hr 69 H* 12/02/24 23:27: POC Glucose 174 H 12/03/24 06:39: WBC 4.1 L, RBC 3.78 L, Hgb 11.4 L, Hct 33.9 L, MCV 89.7, MCH 30.2, MCHC 33.6, RDW Std Deviation 44.7 H, RDW Coeff of [place]akeem 13.7, Plt Count 69 L , MPV 10.1, Immature Gran % (Auto) 0.500, Neut % (Auto) 71.9 H, Lymph % (Auto) 14.4 L, [place] % (Auto) 8.8, Eos % (Auto) 3.9, Baso % (Auto) 0.5, Absolute Neuts (auto) 3.0, Absolute Lymphs (auto) 0.59 L, Nucleated RBC % 0, Platelet Estimate MOD DEC, Sodium 138, Potassium 3.4, Chloride Direct 104, Carbon Dioxide 23.4, Anion Gap 11, BUN 20 H, Creatinine 0.9, Estim Creat Clear Calc 85.02, Est GFR (MDRD) Non-Af 92, BUN/Creatinine Ratio 22.3 H, Glucose 151 H, Calcium 8.5 12/03/24 06:51: POC Glucose 156 H 12/03/24 11:28: POC Glucose 131 H 12/03/24 15:45: POC Glucose 147 H 12/03/24 16:34: Crossmatch See Detail Micro: Microbiology 12/02/24 22:45 Mucosa - Nasopharyngeal SARS-CoV-2, Influenza & RSV (PCR) - Final Radiography Diagnostic Testing: Radiology Impression Echocardiogram 12/03/24 11:05 Interpretation Summary The estimated ejection fraction is 60 %. No evidence for diastolic dysfunction. Ordering Physician: Jose España Performed By: Alec Kennedy RCS Assessment & Plan Assessment/Plan (1) Closed fracture of left hip: PLAN: Platelets too low and no platelets in house, not available for 4 hours so case cancelled due to bleeding / safety risk. Ordered to be here for 8am tomorrow and start the case tomorrow at 1pm. Apologized to the patient for the delay and fasting. ODALYS now, NPO at NM.
--- NOTE | 2024-12-03 17:03 | NURSING ---
report called to selena rn- aware that surgery canceled for tonight and rescheduled for tomorrow at 1300 blood bank aware that platelets are needed before surgery tomorrow am pt to be npo after midnight and clear liquids til 0600 pt doesn't have any family that need called
--- NOTE | 2024-12-03 17:21 | PCM.HOSP.N ---
Hospitalist Note I talked with anesthesia late this afternoon concerning the patient, they canceled his ORIF of his hip fracture due to a low platelet count of 69,000. Patient will receive one 5 pack of platelets tonight and then the other 5 pack will be held tomorrow. Also, patient will have 2 units of packed red blood cells to be held in the morning for the surgery.
[2024-12-03] MEDS: Cefazolin 2 GM in Syringe IV (17:33)
[2024-12-03 18:01] LABS: Bedside Glucose 145 mg/dL (74-106)
[2024-12-03 19:14] LABS: Hemoglobin A1c 6.5 % (<=5.6)
[2024-12-03] MEDS: RisperiDONE 1 MG Tablet PO (21:50)
[2024-12-03] MEDS: Atorvastatin Calcium 80 MG Tablet PO (21:50)
[2024-12-03] MEDS: Senna/Docusate Sodium 1 Tablet 2 TABLET PO (21:50)
[2024-12-03] MEDS: Insulin Lispro 100 UNIT/ML INSULN.PEN SC (21:58)
[2024-12-03 23:00] LABS: Bedside Glucose 170 mg/dL (74-106)
[2024-12-04] VITALS (21 sets, daily range): BP systolic 123–150; BP diastolic 45–78; PULSE 71–110; RESP 15–19; TEMP 36.2–37.4; O2SAT 92–100; BMI 27.6
[2024-12-04 04:12] LABS: Absolute Lymphocyte Count 0.46 X10^3/uL (0.83-4.51); Absolute Neutrophil Count 4.4 X10^3/uL (2.0-7.7); Basophil# 0.02 X10^3/uL; Basophil% 0.4 % (0-1); Eosinophils% 3.6 % (0-5); Hematocrit 34.6 % (40-54); Hemoglobin 11.5 g/dL (13.0-16.5); Lymphocyte # 0.46 X10^3/ul (0.83-4.51); Lymphocyte % 8.3 % (19-41); Mean Corp Hgb Conc 33.2 g/dL (32-36); Mean Corpuscular Hgb 29.9 pg (27.0-32.0); Mean Corpuscular Volume 89.9 fL (80-94); Mean Platelet Vol. 9.9 fl (6.2-12.0); Monocyte# 0.45 X10^3/uL; Monocyte% 8.1 % (0-10); NRBC Flagged by Analyzer 0 % (0-5); Neutrophil # 4.39 X10^3/uL (2.7-7.7); Neutrophil % 78.9 % (47-70); POSITIVE COUNT YES; POSITIVE DIFFERENTIAL YES; Platelet Count 86 K/mm3 (150-450); RBC Distribution Width CV 13.3 % (11.6-14.6); RBC Distribution Width SD 43.8 fl (35.1-43.9); Red Blood Count 3.85 M/mm3 (4.6-6.2); White Blood Count 5.6 K/mm3 (4.4-11.0)
[2024-12-04] MEDS: Insulin Lispro 100 UNIT/ML INSULN.PEN SC ×2 (06:39→21:37)
[2024-12-04 06:58] LABS: Bedside Glucose 158 mg/dL (74-106)
[2024-12-04] MEDS: 0.9% Saline Lock 10 ML Syringe IV ×2 (08:26→21:33)
[2024-12-04] MEDS: Morphine 2 MG/ML Syringe IV (08:26)
[2024-12-04] MEDS: Metoprolol(XL)Succ 25 MG Tablet PO (08:26)
[2024-12-04 11:36] LABS: Bedside Glucose 157 mg/dL (74-106)
--- NOTE | 2024-12-04 12:27 | PRE.ANES_ITS ---
ASA Classification* ASA Classification ASA Classification: 3 Assessment & Plan Anesthesia* Anesthesia Assessment Anesthesia Assessment: Discussed sedation and/or anesthesia options, risks, benefits, and alternatives with patient/parents/legal guardian/POA. Questions invited. The patient/parents/legal guardian/POA seems to understand and agrees to proceed with anesthesia plan. Reviewed the physical assessment, medical history, allergy history and patient home medications list prior to surgery/procedure/anesthetic and documented any changes. Performed airway and anesthesia risk assessments. Anesthesia Type Anesthesia Type: General (Plan for Randolph scope intubation.) History Source History Obtained from:: Patient and Chart Anesthesia Focused Assessment* Temperature: 99 F Pulse Rate: 92 Blood Pressure: 134/60 Respiratory Rate: 16 Pulse Ox: 99 Oxygen Delivery Method: Nasal Cannula Oxygen Flow Rate (L/min): 2 Airway Assessment Mouth opens: >3 cm Mallampati Score: II Teeth Condition: Caps/Crowns (Patient has several Crowns. They Are Tight.), Missing (Multiple missing teeth.) and Partial (Patient has upper partial. It is out.) Neck Range of motion (ROM): Limited ROM Focused Labs Anesthesia Preop lab: CBC WBC 5.6 K/mm3 (4.4-11.0) 12/04/24 03:43 12/04/24 RBC 3.85 M/mm3 (4.6-6.2) L 12/04/24 03:43 12/04/24 Hgb 11.5 g/dL (13.0-16.5) L 12/04/24 03:43 5 Hct 34.6 % (40-54) L 12/04/24 03:43 12/04/24 Plt Count 86 K/mm3 (150-450) L 12/04/24 03:43 12/04/24 CHEMISTRY Potassium 3.4 mmol/L (3.3-5.1) 12/03/24 06:39 12/03/24 Sodium 138 mmol/L (133-145) 12/03/24 06:39 12/03/24 Magnesium 1.8 mg/dL (1.6-2.6) 09/18/22 09:42 09/18/22 Phosphorus 3.1 mg/dL (2.5-4.9) 12/10/23 09:30 12/10/23 BUN 20 mg/dL (4-19) H 12/03/24 06:39 12/03/24 Creatinine 0.9 mg/dL (0.8-1.3) 12/03/24 06:39 12/03/24 Glucose 151 mg/dL (70-99) H 12/03/24 06:39 12/03/24 POC Glucose 157 mg/dL (74-106) H 12/04/24 11:04 12/04/24 TSH 0.83 uIU/mL (0.358-3.74) 12/10/23 09:30 COAG PT 14.3 SECONDS (11.7-14.9) 12/10/23 09:30 Pre-Assessment Diagnosis/Proposed Procedure Planned Operative Procedure(s): LEFT Hip Hemiarthroplasty Anesthesia History Anesthesia History - registered account administrator: Anesthesia History - registered account administrator Hx Hospitalization No 09/13/22 10:47 Any Problems With Anesthesia No 12/02/24 23:43 Cholinesterase deficiency No 12/02/24 23:43 You/Your Family Experience No 12/02/24 23:43 fever (hyperthermia) with Relationship Recent Exposure to Contagious No 12/02/24 23:43 Disease Does patient have nerve No 12/02/24 23:43 stimulator Patient instructed to have device shut off --Does patient have Pacemaker Yes 12/04/24 11:05 or ICD? When Was Last Pacemaker Check Yes, just recently 12/02/24 23:43 QUESTION #4 FULL TEXT: You/Your Family Experience fever (hyperthermia) with Anesthesia Last Oral Intake Last Oral intake: Last Oral Intake NPO since 00:00 12/04/24 11:05 Meds taken in AM with sips of Yes 12/04/24 11:05 water? Meds patient instructed to SEE MAR 12/04/24 11:05 take am of surgery PONV PONV - registered account administrator: PONV - registered account administrator Female No 12/03/24 16:19 HX of Motion Sickness No 12/03/24 16:19 HX of N/V After Surgery No 12/03/24 16:19 Non-Smoker No 12/03/24 16:19 Duration of Surgery greater Yes 12/03/24 16:19 than 60 minutes Number of Risk Factors 1 12/03/24 16:19 PONV Score Height & Weight Height & Weight: Anesthesia: Height & Weight Height 6 ft 12/04/24 11:05 Weight: 92.5 kg 12/04/24 11:05 Body Mass Index (BMI) 27.6 12/04/24 11:05 Respiratory Assessment Respiratory Assessment - registered account administrator: Respiratory Tract Infection Hx - registered account administrator Hx Respiratory Tract Infection No 12/02/24 23:43 STOP Sleep Apnea STOP Sleep Apnea - registered account administrator: STOP Sleep Apnea - registered account administrator Hx Hypertension Yes 12/02/24 17:23 Hx Sleep Apnea No 12/02/24 17:23 CPAP Yes 11/20/23 16:19 BIPAP No 11/20/23 16:19 Do you snore loudly (louder No 12/02/24 17:23 than talking or can be heard Do you often feel tired/ No 12/02/24 17:23 fatigued/ sleepy during daytime? Has anyone observed you stop No 12/02/24 17:23 breathing during sleep? STOP Results Negative 12/02/24 17:23 QUESTION #5 FULL TEXT : Do you snore loudly (louder than talking or can be heard through closed doors)? Tobacco Use History Tobacco Use History - registered account administrator: Tobacco Use History - registered account administrator Tobacco Use Smoking Status Former smoker 12/02/24 17:23 Hx Tobacco Use No 12/02/24 17:23 Years Smoking Packs Smoked per Day Smoking Cessation Date was Yes - quit smoking within 15 12/02/24 17:23 within the last 15 years years Hx Smoking Cessation Date 10/08/17 12/02/24 17:23 Hx Smoking Cessation No 12/02/24 17:23 Counseling Hematologic Medial History Hematologic Hx - registered account administrator: Hematologic Medical Hx - outcomes specialist Hx of Blood Transfusion No 12/02/24 17:23 Hx of Transfusion in last 3 No 12/02/24 17:23 Months Date of Last Transfusion (if within last 3 months) Ever experience any problems No 12/02/24 17:23 with transfusion(s)? Specify any problems Hx of Preganancy in last 3 N/A 12/02/24 17:23 Months Nurse Filling Out Transfusion ABROCK 12/02/24 17:23 & Questions: Date: 12/02/24 12/02/24 17:23 Time: 18:12 12/02/24 17:23 Patient unable to answer at this time (ie. confused, unrespo /Reproduction History /Reproductive History - registered account administrator: /Reproductive Hx- registered account administrator Hx Now No 12/02/24 23:43 Gestational Age (in weeks): EDC: Hx Hx Para Hx Section SAB No 12/02/24 23:43 Active Medications Active Medications: Current Medications Generic Name Dose Route Start Last Admin Trade Name Freq PRN Reason Stop Dose Admin Acetaminophen 650 mg 12/02/24 17:22 12/03/24 21:50 Acetaminophen 325 Mg Tablet PO 650 mg Q6H PRN PRN Administration Pain 1-10 Or Fever >100.7 Atorvastatin Calcium 80 mg 12/02/24 22:00 12/03/24 21:50 Atorvastatin Calcium 80 Mg Tablet PO 80 mg QHS KARNE Administration Ferrous Sulfate 325 mg 12/03/24 12:00 12/04/24 11:10 Ferrous Sulfate 325 Mg Tablet PO Not Given DAILY@1200 KAREN Glucagon 1 mg 12/02/24 17:22 Glucagon 1 Mg/Ml Syringe IM X1 PRN Hypoglycemia Protocol Dextrose 250 mls @ 0 mls/hr 12/02/24 17:22 Dextrose 10%-Water IV .Q0M PRN HYPOGLYCEMIA Protocol As Directed Sodium Chloride 100 mls @ 15 mls/hr 12/02/24 17:24 IV .Q6H40M PRN Saline Flush Sodium Chloride 100 mls @ 15 mls/hr 12/02/24 17:24 IV .Q6H40M PRN Additional IVPB Infusion Sodium Chloride 1,000 mls @ 15 mls/hr 12/03/24 15:50 12/03/24 17:34 IV 12/09/24 05:09 0 mls/hr .Q48H KAREN Infusion Protocol Cefazolin Sodium 2 gm/ N/A 20 mls @ 400 mls/hr 12/04/24 12:30 IV 12/04/24 12:32 PREOP ONE Insulin Glargine 45 unit 12/03/24 10:00 12/04/24 08:27 Insulin Glargine-Yfgn 100 Unit/Ml Pen SC Not Given DAILY KAREN Insulin Human Lispro 0 unit 12/02/24 22:00 12/04/24 11:09 Insulin Lispro 100 Unit/Ml Insuln.Pen SC Not Given ACHS [facility] Protocol Losartan Potassium 25 mg 12/03/24 10:00 12/04/24 08:27 Losartan Potassium 25 Mg Tablet PO Not Given DAILY [facility] Protocol Melatonin 10 mg 12/02/24 22:00 Melatonin 10 Mg Tablet PO QHS PRN insomnia Metoprolol Succinate 25 mg 12/03/24 10:00 12/04/24 08:26 Metoprolol(Xl)Succ 25 Mg Tablet PO 25 mg DAILY [facility] Administration Protocol Morphine Sulfate 2 - 4 mg 12/02/24 17:22 12/04/24 08:26 Morphine 2 Mg/Ml Syringe IV 2 mg Q3H PRN PRN Administration Pain Score 6-10 Morphine Sulfate 2 - 4 mg 12/02/24 17:39 Morphine 4 Mg/Ml Syringe IV Q3H PRN PRN Pain Score 6-10 Ondansetron HCl 4 mg 12/02/24 17:22 Ondansetron 4 Mg/2 Ml Vial IV Q8H PRN PRN NAUSEA/VOMITING Oxycodone HCl 5 mg 12/02/24 17:22 12/02/24 23:36 Oxycodone 5 Mg Tablet PO 5 mg Q4H PRN PRN Administration Pain Score 4-10 Pantoprazole Sodium 40 mg 12/03/24 10:00 12/04/24 08:27 Pantoprazole Sodium 40 Mg Tablet PO Not Given DAILY [facility] Prochlorperazine Edisylate 5 mg 12/02/24 17:22 Prochlorperazine 10 Mg/2 Ml Vial IV Q4H PRN PRN Breakthrough nausea/vomiting Risperidone 1 mg 12/02/24 22:00 12/04/24 08:27 Risperidone 1 Mg Tablet PO Not Given BID [facility] Protocol Senna/Docusate Sodium 2 tablet 12/02/24 22:00 12/04/24 08:27 Senna/Docusate Sodium 1 Tablet PO Not Given BID [facility] Sodium Chloride 10 - 40 ml 12/02/24 17:24 12/04/24 08:26 0.9% Saline Lock 10 Ml Syringe IV 10 ml UD PRN Administration SALINE FLUSH PFSH Medical History Wears dentures Wears glasses Arthritis Diabetes Back pain Former smoker Hx of echocardiogram History of stress test Cardiology follow-up encounter Cellulitis of right lower extremity Arthritis Smoker Diabetes mellitus with diabetic polyneuropathy Amputation foot, unilat Depression Chronic pain Hepatitis Sleep apnea Former smoker Chest pain Hypertension TIA (transient ischemic attack) H/O alcohol abuse H/O drug abuse Anxiety Toe amputee Depression Pruritus Vitamin D deficiency Insomnia Hepatitis C Diabetic foot ulcer Debility Type 2 diabetes mellitus with diabetic polyneuropathy Delayed wound healing Non-pressure chronic ulcer of other part of right foot with fat layer exposed H/O alcohol abuse H/O drug abuse Hammer toe of right foot Hyperlipidemia Hypertension Cellulitis Diabetic foot infection Preop cardiovascular exam Troponin I above reference range Anxiety Stroke Diabetes Home Medications ?Medication ?Instructions ?Recorded ?Last Taken ?Type aspirin 81 mg tablet,delayed 81 mg PO DAILY@0800 heart health 07/08/20 11/29/24 History release rosuvastatin 40 mg tablet 40 mg PO QHS CHOLESTEROL 04/2811/29/24 History ascorbic acid (vitamin C) 250 mg 250 mg PO DAILY healt h 11/20/23 11/29/24 History tablet ferrous sulfate 325 mg (65 mg 325 mg PO DAILY health 0 11/20/23 11/29/24 History iron) tablet insulin glargine U-300 conc 300 45 unit subcut DAILY d iabetes 11/20/23 11/29/24 History unit/mL (3 mL) subcutaneous pen (Toujeo Max U-300 SoloStar) losartan 25 mg tablet 25 mg PO DAILY blood pressur e 11/20/23 11/29/24 History melatonin 10 mg capsule 10 mg PO DAILY PRN insomnia 11/20/23 11/29/24 History metoprolol succinate 25 mg 25 mg PO DAILY blood pressu re 11/20/23 11/29/24 History tablet,extended release 24 hr omeprazole 20 mg capsule,delayed 40 mg PO DAILY GERD 0 11/20/23 11/29/24 History release risperidone 1 mg tablet 1 mg PO BID bipolar 11/20/23 11/29/24 History semaglutide 0.25 mg or 0.5 mg (2 0.5 mg subcut MO diab etes 11/20/23 11/24/24 History mg/3 mL) subcutaneous pen injector (Ozempic) Allergy/AdvReac Type Severity Reaction Status Date / Time No Known Allergies Allergy Verified 12/02/24 14:09 Family History Other Cancer Diabetes Surgical History History of permanent cardiac pacemaker placement History of aortic valve replacement Presence of right artificial hip joint Hx of cardiac cath History of hip surgery History of cholecystectomy History of transmetatarsal amputation of right foot Social History household members: spouse current occupational status: disabled Smoking Status: Former smoker alcohol intake: never substance use type: does not use Review of Systems (Anesthesia) ROS Narrative System reviewed and no additional complaints, except as documented.
--- NOTE | 2024-12-04 12:32 | PN.ORTHO_ITS ---
Subjective Subjective Pending L hip joe. no change, no concerns. Objective Data Objective Data Vital Signs: Vital Signs Temp Pulse Resp BP Pulse Ox O2 Del Method O2 Flow Rate 99 F 92 16 134/60 H 99 Nasal Cannula 2 12/04/24 12:15 12/04/24 12:15 12/04/24 12:15 12/04/24 12:15 12/04/24 12:15 12/04/24 12:15 12/04/24 12:15 Oxygen Flow Rate (L/min) 2 Oxygen Delivery Method Nasal Cannula Weight: 203 lb 14.841 oz Body Mass Index (BMI) 27.6 Intake & Output: Intake and Output for Last 24 Hours 12/02/24 12/03/24 12/04/24 23:59 23:59 23:59 Intake Total 1000 / 1000 3346.5 / 3346.5 364 / 364 Output Total 2605 / 2605 1550 / 1550 Balance 1000 / 1000 741.5 / 741.5 -1186 / -1186 Lab / Micro Data 12/04/24 03:43 12/03/24 06:39 Labs: Laboratory Results - last 24 hr 12/03/24 06:39: Hemoglobin A1c 6.5 12/03/24 15:45: POC Glucose 147 H 12/03/24 16:34: Blood Type A POSITIVE, Antibody Screen NEGATIVE, Crossmatch See Detail 12/03/24 17:27: POC Glucose 145 H 12/03/24 21:57: POC Glucose 170 H 12/04/24 03:43: WBC 5.6, RBC 3.85 L, Hgb 11.5 L, Hct 34.6 L, MCV 89.9, MCH 29.9, MCHC 33.2, RDW Std Deviation 43.8, RDW Coeff of Hakeem 13.3, Plt Count 86 L, MPV 9.9, Immature Gran % (Auto) 0.700, Neut % (Auto) 78.9 H, Lymph % (Auto) 8.3 L, [place] % (Auto) 8.1, Eos % (Auto) 3.6, Baso % (Auto) 0.4, Absolute Neuts (auto) 4.4, Absolute Lymphs (auto) 0.46 L, Nucleated RBC % 0 12/04/24 06:37: POC Glucose 158 H 12/04/24 11:04: POC Glucose 157 H Micro: Microbiology 12/02/24 22:45 Mucosa - Nasopharyngeal SARS-CoV-2, Influenza & RSV (PCR) - Final Assessment & Plan Assessment/Plan (1) Closed fracture of left hip: PLAN: platelets run in and plan to give more during surgery. Dr. Powell anesthesia. OK to proceed.
[2024-12-04] MEDS: Cefazolin 2 GM in Syringe IV (12:38)
--- NOTE | 2024-12-04 13:00 | FEM_PTH ---
PATIENT: DAMON WYLEI LOC: MS3 U#:[id number] AGE/SX: 69/M ROOM: [facility] [place] RE12/02/[address]: Dr. Edvin Lomas MD : 1955 BED: 1 DIS: 12/09/2024 SPEC #: [id number] RECD: 12/05/24 08:50 STATUS: HEIKE REMarva #: [id number] PATI: 12/04/24 13:[address]: Snug Lopez DEPT: SURGICAL PATHOLOGY RECD BY: Janell Florez ENTERED: 12/05/24 10:13 SP TYPE: FEM HEAD OTHR DR: Dr. Enoch Carrizales, DO Dr. Jose España, DO Dr. Sung Lopez MD [facility] Tissues: Femoral region, NOS Procedures: Decalcification bone/plaque Surgery Specimen Level V Comments: @ Ordering doctor for DEC edited from to @ by LAWRENCE at 12/05/24 1201 @ Ordering doctor for SUV edited from to @ by LAWRENCE at 12/05/24 1201 @ Submitting doctor edited from to @ by LAWRENCE at 12/05/24 1201 HEADER OPERATION: Hemiarthroplasty, hip PRE-OP DIAGNOSIS: Closed fracture of left hip TISSUE SUBMITTED: Left hip bone and tissue MICROSCOPIC DIAGNOSIS Femoral head, left hip hemiarthroplasty: * Articular bone with reactive/degenerative changes * Predominantly fatty marrow with focal trilineage hematopoiesis * Bone fragments with hemorrhage and trilineage hematopoiesis MICROSCOPIC DESCRIPTION Slides are reviewed. GROSS DESCRIPTION Received is one container labeled with the patient's name and designated femoral head and tissue. The specimen consists of a blair femoral head measuring 5 x 4.5 x 4 cm. The articular surface is smooth. Resection margin is irregular and hemorrhagic. Also present in the specimen container are multiple detached pieces of bone measuring in aggregate 6 x 5 x 1.5 cm. No soft tissue is identified. Christmas [employer]er sections are submitted in two cassettes after decalcification. / 12/05/2024 TC: CPT: 38935, 62525
[2024-12-04] MEDS: TXA 1000mg in NS100 100ml (IVPB at Incision) 660 MG IV (13:26)
[2024-12-04] MEDS: TXA 1000mg in NS100 100ml (IVPB at Closure) 660 MG IV (14:15)
[2024-12-04] MEDS: Bupivacaine 0.25% 30 ML Vial (14:16)
--- NOTE | 2024-12-04 14:29 | OP.PCM_ITS ---
Problems Associated Problem List Diagnoses (1) Closed fracture of left hip: Procedures Musculoskeletal 20xxx-29xxx: Other Procedure See Report Operative Report (Standard) Operative Information Date of Procedure: 12/04/24 Pre-Operative Diagnosis: L hip femoral neck fracture Post-Operative Diagnosis: same Surgery/Procedure Performed: Left hip cemented joe arthroplasty casino floor walker: Yes Tenderizer Tender: rolo Tasks completed by marketing operations assistant: Retracting Additional events assistant?: No Type of Anesthesia: General and Local RN Documented Start/Stop Times: Operation Date: 12/04/24 13:00 Case Time Into Pre-Op 12/04/24 12:00 Anesthesia Start 12/04/24 12:38 Into Room 12/04/24 12:38 Procedure Start 12/04/24 13:08 Procedure End 12/04/24 14:25 Out of Pre-Op Procedure Start Time: 13:08 Procedure Stop Time: 14:25 Select all DRAINS/GRAFTS/IMPLANTS that apply: Prosthetic device Prosthetic device details: milagro accolade cemented joe Estimated Blood Loss: 100 Specimen collected: Yes Description of specimen(s) removed: femoral head Description of surgery: Patient brought to the operating theater. Placed supine on the table. General anesthesia induced. 1 g IV tranexamic acid at the start time 1 g IV tranexamic acid at the end of the case. 2 g IV Ancef administered prior to the start of the case. Patient transferred left side up lateral decubitus [place] hip positioner appropriately padded. SCD on the nonoperative leg. Axillary roll used. Leg prepped and draped in the usual sterile fashion allowing over 3 minutes drying time prior to draping with chlorhexidine-based prep solution. Preoperative timeout performed to confirm the site patient and the surgery. Began by making a standard lateral incision centered over the proximal femur. Carried the dissection down through skin and subcutaneous tissue achieved meticulous hemostasis. Incised the tensor fascia lisa in line with the skin incision. I then sharply released the anterior one third of the abductors from the greater trochanter of the hip. I then made a T-shaped capsulotomy and put stay sutures in each limb. Identified the acetabulum. Identified the fracture site. I remove the femoral head. I made my neck cut approximately 1 cm above the level of the lesser trochanter. I sized the head to a size 50 mm. I thoroughly irrigated the acetabulum removed any debris. I then used the lateralizing box osteotome followed by broaching up to a size 6 with trialing the 132 degree offset with a size 50mm mm head, -3mm offset. This achieved good reduction and appropriate fit with appropriate flexion internal rotation and external rotation with extension no instability and no impingement. Equal leg lengths. Trial components removed. I then turned my attention back to the femur using the preparation devices, pulse lavage, Irrisept which I used irrigate throughout the case as well as the padded suction device. I sized for a centralizer to a large, and then large cement restrictor, placed this after appropriate period of time of suctioning the canal. I selected my final implants the Milagro Accolade size 6. Mixed cement using third-generation cement techniques. I cemented the femur use the pressurizing system. I then inserted the final component into the canal patient was stable throughout cementing. I cleaned away any excess cement. Thoroughly irrigated the acetabulum. I cleaned the trunnion thoroughly. I then impacted the final head size 50 mm bipolar, -3mm inner. The Nieves taper was stable and solid. I then reduced the hip again this was trialed and felt to be of appropriate length no impingement no instability. Appropriate length in terms of leg lengths and normal shuck test, no instability. I then closed the capsule using #1 Vicryl suture, abductors were repaired to the greater trochanter with FiberWire suture. I then used the barbed suture #1 stratafix running locking suture for the repair of the tensor fascia lisa. Again soft tissues were thoroughly irrigated followed by closure of the subcutaneous tissue with 2-0 Vicryl sutures and skin with 3-0 Monocryl. 20 cc of 0.25% bupivacaine instilled in and around the soft tissues. Skin cleaned with wet and dry dressing followed application of Steri-Strips and silver Mepilex dressing. Patient transferred off the operating room table, case terminated. All sponge needle instrument counts were correct no complications plan for the patient readmitted under the hospitalist service VTE prophylaxis xarelto 10mg po OD 30 days, and postoperative x-ray and weightbearing as tolerated with PT and OT to assess. CPT 94390 Surgical Findings: as above Complications Complications: No Admit VTE Documentation VTE Present on Admission: No VTE Mechan Device Prophylaxis: SCD's VTE Pharm Prophylaxis ordered?: Yes
--- NOTE | 2024-12-04 14:39 | PCM.POST.ANE ---
Anesthesia: Postop Eval I Current Vital Signs Temperature: 97.3 F Pulse Rate: 91 Blood Pressure: 128/61 Respiratory Rate: 16 Pulse Ox: 100 Oxygen Delivery Method: Simple Mask Oxygen Flow Rate (L/min): 4 Assessment Airway patent: Yes Spontaneous unlabored respirations: Yes Mental status: Awake nausea: No Vomiting: No Anesthesia Complication: No Fluid Hydration Crystalloid volume administer (ml): 800 Blood Product volume administered (ml): 318 Total IV fluid infused: 1,118 Progress Note Anesthesia document: Postop Eval 1 completed: Yes
--- NOTE | 2024-12-04 14:45 | RAD_ITS ---
PROCEDURE: HIP MIN 2 VIEWS (PORTABLE) REASON FOR EXAM: Left hip replacement. Left TECHNIQUE: One (1) view of the left hip COMPARISON: Comparison is made with prior study dated December 02, 2024. FINDINGS: The patient is status post left hip replacement. There is good alignment. RAD/Hip Min 2 Views (Portable) IMPRESSION: Status post left hip replacement. There is good alignment. Reading Location: RAD
[2024-12-04 15:24] LABS: Bedside Glucose 161 mg/dL (74-106)
[2024-12-04 16:42] LABS: Bedside Glucose 166 mg/dL (74-106)
--- NOTE | 2024-12-04 18:39 | PN.HOSP_ITS ---
Reason for Visit Reason for Visit: Diagnoses Fracture of unspecified part of neck of left femur, initial encounter for closed fracture (12/02/24) Subjective Subjective Patient was seen and examined today before surgery, he underwent a left hip cemented hemiarthroplasty today without complication. I talked briefly with anesthesia this morning before his surgery and he was to have a platelet infusion during the time of surgery. Objective Data Objective Data Vital Signs: Vital Signs Temp Pulse Resp BP Pulse Ox O2 Del Method O2 Flow Rate 98.0 F 89 19 H 127/71 H 99 Nasal Cannula 2 12/04/24 17:41 12/04/24 17:41 12/04/24 17:41 12/04/24 17:41 12/04/24 17:41 12/04/24 17:41 12/04/24 17:41 Oxygen Flow Rate (L/min) 2 Oxygen Delivery Method Nasal Cannula Weight: 92.5 kg Body Mass Index (BMI) 27.6 Intake & Output: Intake and Output for Last 24 Hours 12/02/24 12/03/24 12/04/24 23:59 23:59 23:59 Intake Total 1000 / 1000 3346.5 / 3346.5 604 / 604 Output Total 2605 / 2605 2450 / 2450 Balance 1000 / 1000 741.5 / 741.5 -1846 / -1846 Lab / Micro Data 12/04/24 03:43 12/03/24 06:39 Labs: Laboratory Results - last 24 hr 12/03/24 06:39: Hemoglobin A1c 6.5 12/03/24 21:57: POC Glucose 170 H 12/04/24 03:43: WBC 5.6, RBC 3.85 L, Hgb 11.5 L, Hct 34.6 L, MCV 89.9, MCH 29.9, MCHC 33.2, RDW Std Deviation 43.8, RDW Coeff of Hakeem 13.3, Plt Count 86 L, MPV 9.9, Immature Gran % (Auto) 0.700, Neut % (Auto) 78.9 H, Lymph % (Auto) 8.3 L, [place] % (Auto) 8.1, Eos % (Auto) 3.6, Baso % (Auto) 0.4, Absolute Neuts (auto) 4.4, Absolute Lymphs (auto) 0.46 L, Nucleated RBC % 0 12/04/24 06:37: POC Glucose 158 H 12/04/24 11:04: POC Glucose 157 H 12/04/24 15:03: POC Glucose 161 H 12/04/24 16:23: POC Glucose 166 H Micro: Microbiology 12/02/24 22:45 Mucosa - Nasopharyngeal SARS-CoV-2, Influenza & RSV (PCR) - Final Radiography Diagnostic Testing: Radiology Impression Hip X-Ray 12/04/24 14:45 IMPRESSION: Status post left hip replacement. There is good alignment. Reading Location: [facility] Physical Exam Narrative alert, oriented x3, no apparent distress, average body habitus and healthy appearing General Appearance: cooperative, well kempt and well developed Orientation / Consciousness: awake, oriented to person, oriented to place and oriented to time HEENT normocephalic, head/scalp atraumatic and moist oral mucous membranes Eyes PERRL, EOMs intact bilaterally and conjunctivae normal Neck supple, no JVD, thyroid normal and no carotid bruits General: trachea midline Resp normal respiratory effort, no retractions, no use of accessory muscles and clear to auscultation bilaterally Auscultation: Negative for rales, rhonchi or wheezes Cardio regular rate, regular rhythm, S1 normal heart sound, S2 normal heart sound, no murmurs, no rub and no gallops GI normal to inspection, nondistended, normoactive bowel sounds, soft to palpation, non-tender and non-distended Extremity Extremity Narrative: Patient's lower extremities were not examined for range of motion due to the patient's left hip fracture Skin no rashes or lesions noted General Skin Exam: no breakdown Neuro oriented x3, CN's II-XII intact bilaterally, no focal motor deficits and no sensory deficits noted Sensorium / Orientation: awake and alert Speech: speech normal Psych affect normal Assessment & Plan Assessment/Plan (1) Closed fracture of left hip: PLAN: Plan 1. Subcapital fracture of the proximal left femur secondary to osteoporosis- again patient underwent a hemiarthroplasty today without complications #2 valvular heart disease-patient has a bioprosthetic aortic valve in place #3 type 2 diabetes-patient's blood sugars will be monitored by fingerstick blood sugars, sliding scale insulin will be administered as needed #4 cerebrovascular disease-patient has a previous history of stroke according to the patient, he is on 81 mg aspirin daily #5 essential hypertension-patient will remain on his present medications #6 thrombocytopenia-etiology unclear, CBC will be rechecked tomorrow Total clinical time spent by myself addressing patient's medical issues, reviewing all of his data, and collaborating with patient's care team: 35 minutes Charges/Coding Visit Charges Inpatient E&M: 06391 Subs Hosp L2
[2024-12-04] MEDS: RisperiDONE 1 MG Tablet PO (21:32)
[2024-12-04] MEDS: Atorvastatin Calcium 80 MG Tablet PO (21:32)
[2024-12-04] MEDS: Senna/Docusate Sodium 1 Tablet 2 TABLET PO (21:32)
--- NOTE | 2024-12-04 21:46 | POSTOPAN2_ITS ---
Anesthesia Postop Eval I Sum Postop Eval Completion status Anesthesia document: Postop Eval 1 completed: Yes Anesthesia Postop Eval I Summary Anesthesia Postop Eval I Summary: Anesthesia Postop Eval I: Assessment Summary Airway patent Yes 12/04/24 14:41 [email or web address] Spontaneous unlabored Yes 12/04/24 14:41 [email or web address] respirations Mental status Awake 12/04/24 14:41 [email or web address] nausea No 12/04/24 14:41 [email or web address] Vomiting No 12/04/24 14:41 [email or web address] Anesthesia Postop Eval I: Fluid Summary Crystalloid volume administer 800 12/04/24 14:41 [email or web address] (ml) Colloids volume administered ( ml) Blood Product volume 318 12/04/24 14:41 [email or web address] administered (ml) Total IV fluid infused 1,118 12/04/24 14:41 [email or web address] Anesthesia Postop Eval I: Summary Notes Anesthesia Complication No 12/04/24 14:41 [email or web address] Anesthesia Complication Comment: Post-operative progress note Anesthesia: Postop Eval II Evaluation Mental status: Awake and Calm Pain Level: 2 nausea: No Vomiting: No Complications Anesthesia Complication: No
--- NOTE | 2024-12-04 21:46 | PCM.POSTANE2 ---
Anesthesia Postop Eval I Sum Postop Eval Completion status Anesthesia document: Postop Eval 1 completed: Yes Anesthesia Postop Eval I Summary Anesthesia Postop Eval I Summary: Anesthesia Postop Eval I: Assessment Summary Airway patent Yes 12/04/24 14:41 [email or web address] Spontaneous unlabored Yes 12/04/24 14:41 [email or web address] respirations Mental status Awake 12/04/24 14:41 [email or web address] nausea No 12/04/24 14:41 [email or web address] Vomiting No 12/04/24 14:41 [email or web address] Anesthesia Postop Eval I: Fluid Summary Crystalloid volume administer 800 12/04/24 14:41 [email or web address] (ml) Colloids volume administered ( ml) Blood Product volume 318 12/04/24 14:41 [email or web address] administered (ml) Total IV fluid infused 1,118 12/04/24 14:41 [email or web address] Anesthesia Postop Eval I: Summary Notes Anesthesia Complication No 12/04/24 14:41 [email or web address] Anesthesia Complication Comment: Post-operative progress note Anesthesia: Postop Eval II Evaluation Mental status: Awake and Calm Pain Level: 2 nausea: No Vomiting: No Complications Anesthesia Complication: No
[2024-12-04 21:59] LABS: Bedside Glucose 252 mg/dL (74-106)
[2024-12-04] MEDS: oxyCODONE 5 MG Tablet PO (22:55)
[2024-12-04 23:17] LABS: Troponin T High Sens 2 HR 65 ng/L (<=22)
[2024-12-05] VITALS (8 sets, daily range): BP systolic 106–146; BP diastolic 50–77; PULSE 97–109; RESP 15–17; TEMP 36.4–37.2; O2SAT 89–99
[2024-12-05] MEDS: Insulin Lispro 100 UNIT/ML INSULN.PEN SC ×4 (06:31→22:29)
[2024-12-05] MEDS: Acetaminophen 325 MG Tablet 650 MG PO (06:38)
[2024-12-05] MEDS: oxyCODONE 5 MG Tablet PO (06:38)
[2024-12-05 07:08] LABS: Bedside Glucose 248 mg/dL (74-106)
[2024-12-05 08:34] LABS: Absolute Lymphocyte Count 0.33 X10^3/uL (0.83-4.51); Absolute Neutrophil Count 4.1 X10^3/uL (2.0-7.7); Basophil# 0.01 X10^3/uL; Basophil% 0.2 % (0-1); Eosinophil# 0.06 X10^3/uL; Eosinophils% 1.2 % (0-5); Hematocrit 32.2 % (40-54); Hemoglobin 10.9 g/dL (13.0-16.5); Lymphocyte # 0.33 X10^3/ul (0.83-4.51); Lymphocyte % 6.4 % (19-41); Mean Corp Hgb Conc 33.9 g/dL (32-36); Mean Corpuscular Hgb 29.7 pg (27.0-32.0); Mean Corpuscular Volume 87.7 fL (80-94); Monocyte# 0.63 X10^3/uL; Monocyte% 12.2 % (0-10); NRBC Flagged by Analyzer 0 % (0-5); Neutrophil # 4.11 X10^3/uL (2.7-7.7); Neutrophil % 79.4 % (47-70); POSITIVE DIFFERENTIAL YES; Platelet Count 108 K/mm3 (150-450); RBC Distribution Width CV 13.1 % (11.6-14.6); RBC Distribution Width SD 42.4 fl (35.1-43.9); Red Blood Count 3.67 M/mm3 (4.6-6.2); White Blood Count 5.2 K/mm3 (4.4-11.0)
[2024-12-05] MEDS: Pantoprazole Sodium 40 MG Tablet PO (08:38)
[2024-12-05] MEDS: Losartan Potassium 25 MG Tablet PO (08:38)
[2024-12-05] MEDS: Metoprolol(XL)Succ 25 MG Tablet PO (08:38)
[2024-12-05] MEDS: Senna/Docusate Sodium 1 Tablet 2 TABLET PO ×2 (08:39→21:04)
[2024-12-05] MEDS: RisperiDONE 1 MG Tablet PO ×2 (08:39→21:04)
[2024-12-05] MEDS: Insulin Glargine-YFGN 100 UNIT/ML Pen 45 UNIT SC (08:39)
[2024-12-05] MEDS: Ferrous Sulfate 325 MG Tablet PO (11:08)
[2024-12-05 11:38] LABS: Bedside Glucose 289 mg/dL (74-106)
--- NOTE | 2024-12-05 12:33 | CASEMGMT ---
Discharge Planning A list of SNF providers including quality and resource use data and consistent with the patient's preferred geographic region, medical needs, and insurance network was created in [employer] Guide.? This list was provided to the SW. Cheryl White Discharge Planning Asst.
--- NOTE | 2024-12-05 12:40 | CASEMGMT ---
TAMMIE CM into pt room, pt sitting up in chair. Pt states that therapy went ok but he feels he will need further therapy daily prior to returning home. Updated SW.
--- NOTE | 2024-12-05 13:30 | CASEMGMT ---
Social Work SW met with pt to discuss discharge plan. Pt confirms that he feels he will need SNF at discharge. A list of SNF providers including quality and resource use data and consistent with the patient?s preferred geographic region, medical needs, and insurance network were provided from the [employer] Guide. SW reviewed list with pt at length pt stating he would like to stay in [place]. SW reviewed list of [place] facilities multiple times. SW offered to call Francy, pt's contact. Pt states this is his ex and he is not to call her. SW offered to call second contact Isaias and pt also declines. Pt states he does not care which facility in [place]. SW will proceed with SNF facilities starting at the top of the star ratings and proceeding from there. ULISSES call center assistant ivan. GERALD Aylaa
--- NOTE | 2024-12-05 15:55 | PCM.PN.ORT ---
Subjective Subjective Doing well. pain controlled. no acute concerns. Objective Data Objective Data Vital Signs: Vital Signs Temp Pulse Resp BP Pulse Ox O2 Del Method O2 Flow Rate 97.6 F L 104 H 16 106/54 L 92 Room Air 2 12/05/24 11:30 12/05/24 11:30 12/05/24 11:30 12/05/24 11:30 12/05/24 11:30 12/05/24 14:07 12/05/24 07:34 Oxygen Flow Rate (L/min) 2 Oxygen Delivery Method Room Air Weight: 203 lb 14.841 oz Body Mass Index (BMI) 27.6 Intake & Output: Intake and Output for Last 24 Hours 12/03/24 12/04/24 12/05/24 23:59 23:59 23:59 Intake Total 3346.5 / 3346.5 1154 / 1154 1050 / 1050 Output Total 2605 / 2605 3050 / 3050 650 / 650 Balance 741.5 / 741.5 -1896 / -1896 400 / 400 Lab / Micro Data 12/05/24 07:53 12/03/24 06:39 Labs: Laboratory Results - last 24 hr 12/02/24 18:15: Troponin T Hi Sens 2 Hr 65 H* 12/04/24 16:23: POC Glucose 166 H 12/04/24 21:36: POC Glucose 252 H 12/05/24 06:30: POC Glucose 248 H 12/05/24 07:53: WBC 5.2, RBC 3.67 L, Hgb 10.9 L, Hct 32.2 L, MCV 87.7, MCH 29.7, MCHC 33.9, RDW Std Deviation 42.4, RDW Coeff of Hakeem 13.1, Plt Count 108 L, MPV 10.0, Immature Gran % (Auto) 0.600, Neut % (Auto) 79.4 H, Lymph % (Auto) 6.4 L, [place] % (Auto) 12.2 H, Eos % (Auto) 1.2, Baso % (Auto) 0.2, Absolute Neuts (auto) 4.1, Absolute Lymphs (auto) 0.33 L, Nucleated RBC % 0 12/05/24 11:06: POC Glucose 289 H Micro: Microbiology 12/02/24 22:45 Mucosa - Nasopharyngeal SARS-CoV-2, Influenza & RSV (PCR) - Final Physical Exam Const alert and no apparent distress Extremity Extremity Narrative: thigh soft. dressing intact. nvi. pain resting supine comfortably. responds appropriately. Assessment & Plan Assessment/Plan (1) Closed fracture of left hip: PLAN: POD 1 L hip joe for NOF. CCM. WBAT. continue PT/OT
[2024-12-05] MEDS: Rivaroxaban 10 MG Tablet PO (16:10)
[2024-12-05 16:29] LABS: Bedside Glucose 233 mg/dL (74-106)
--- NOTE | 2024-12-05 17:03 | CASEMGMT ---
Discharge Planning Referral sent to [facility]. Cheryl White DC Planning Asst.
--- NOTE | 2024-12-05 17:18 | PN.HOSP_ITS ---
Reason for Visit Reason for Visit: Diagnoses Fracture of unspecified part of neck of left femur, initial encounter for closed fracture (12/02/24) Subjective Subjective Patient was seen and examined today, he is agreed to go to a skilled care facility for inpatient rehab services. Objective Data Objective Data Vital Signs: Vital Signs Temp Pulse Resp BP Pulse Ox O2 Del Method O2 Flow Rate 97.8 F 97 16 111/50 L 97 Room Air 2 12/05/24 16:35 12/05/24 16:35 12/05/24 16:35 12/05/24 16:35 12/05/24 16:35 12/05/24 16:35 12/05/24 07:34 Oxygen Flow Rate (L/min) 2 Oxygen Delivery Method Room Air Weight: 92.5 kg Body Mass Index (BMI) 27.6 Intake & Output: Intake and Output for Last 24 Hours 12/03/24 12/04/24 12/05/24 23:59 23:59 23:59 Intake Total 3346.5 / 3346.5 1154 / 1154 1050 / 1050 Output Total 2605 / 2605 3050 / 3050 650 / 650 Balance 741.5 / 741.5 -1896 / -1896 400 / 400 Lab / Micro Data 12/05/24 07:53 12/03/24 06:39 Labs: Laboratory Results - last 24 hr 12/02/24 18:15: Troponin T Hi Sens 2 Hr 65 H* 12/04/24 21:36: POC Glucose 252 H 12/05/24 06:30: POC Glucose 248 H 12/05/24 07:53: WBC 5.2, RBC 3.67 L, Hgb 10.9 L, Hct 32.2 L, MCV 87.7, MCH 29.7, MCHC 33.9, RDW Std Deviation 42.4, RDW Coeff of Hakeem 13.1, Plt Count 108 L, MPV 10.0, Immature Gran % (Auto) 0.600, Neut % (Auto) 79.4 H, Lymph % (Auto) 6.4 L, [place] % (Auto) 12.2 H, Eos % (Auto) 1.2, Baso % (Auto) 0.2, Absolute Neuts (auto) 4.1, Absolute Lymphs (auto) 0.33 L, Nucleated RBC % 0 12/05/24 11:06: POC Glucose 289 H 12/05/24 16:06: POC Glucose 233 H Micro: Microbiology 12/02/24 22:45 Mucosa - Nasopharyngeal SARS-CoV-2, Influenza & RSV (PCR) - Final Physical Exam Narrative alert, oriented x3, no apparent distress, average body habitus and healthy appearing General Appearance: cooperative, well kempt and well developed Orientation / Consciousness: awake, oriented to person, oriented to place and oriented to time HEENT normocephalic, head/scalp atraumatic and moist oral mucous membranes Eyes PERRL, EOMs intact bilaterally and conjunctivae normal Neck supple, no JVD, thyroid normal and no carotid bruits General: trachea midline Resp normal respiratory effort, no retractions, no use of accessory muscles and clear to auscultation bilaterally Auscultation: Negative for rales, rhonchi or wheezes Cardio regular rate, regular rhythm, S1 normal heart sound, S2 normal heart sound, no murmurs, no rub and no gallops GI normal to inspection, nondistended, normoactive bowel sounds, soft to palpation, non-tender and non-distended Extremity Extremity Narrative: Patient's lower extremities were not examined for range of motion due to the patient's left hip fracture Skin no rashes or lesions noted General Skin Exam: no breakdown Neuro oriented x3, CN's II-XII intact bilaterally, no focal motor deficits and no sensory deficits noted Sensorium / Orientation: awake and alert Speech: speech normal Psych affect normal Assessment & Plan Assessment/Plan (1) Closed fracture of left hip: PLAN: Plan 1. Subcapital fracture of the proximal left femur secondary to osteoporosis- postop day 1 hemiarthroplasty, continue PT and OT #2 valvular heart disease-patient has a bioprosthetic aortic valve in place #3 type 2 diabetes-patient's blood sugars will be monitored by fingerstick blood sugars, sliding scale insulin will be administered as needed #4 cerebrovascular disease-patient has a previous history of stroke according to the patient, he is on 81 mg aspirin daily #5 essential hypertension-patient will remain on his present medications #6 thrombocytopenia-etiology unclear, patient's platelet count was 108,000 today Total clinical time spent by myself addressing patient's medical issues, reviewing all of his data, and collaborating with patient's care team: 35 minutes Charges/Coding Visit Charges Inpatient E&M: 11381 Subs Hosp L2
[2024-12-05] MEDS: Atorvastatin Calcium 80 MG Tablet PO (21:05)
[2024-12-05 22:48] LABS: Bedside Glucose 263 mg/dL (74-106)
[2024-12-06] VITALS (7 sets, daily range): BP systolic 105–116; BP diastolic 55–62; PULSE 94–100; RESP 15–18; TEMP 36.7–37.5; O2SAT 91–98
[2024-12-06] MEDS: Insulin Lispro 100 UNIT/ML INSULN.PEN SC ×4 (06:43→22:51)
[2024-12-06 07:12] LABS: Bedside Glucose 208 mg/dL (74-106)
--- NOTE | 2024-12-06 07:35 | CASEMGMT ---
Social Work Additional referrals sent. Referrals to [facility], [facility], [facility] and [facility]. [facility] unable to accept. will await determinations from other facilities. GERALD Ayala
[2024-12-06] MEDS: Losartan Potassium 25 MG Tablet PO (10:39)
[2024-12-06] MEDS: Senna/Docusate Sodium 1 Tablet 2 TABLET PO ×2 (10:39→20:37)
[2024-12-06] MEDS: Pantoprazole Sodium 40 MG Tablet PO (10:39)
[2024-12-06] MEDS: RisperiDONE 1 MG Tablet PO ×2 (10:40→20:37)
[2024-12-06] MEDS: Metoprolol(XL)Succ 25 MG Tablet PO (10:40)
[2024-12-06] MEDS: Insulin Glargine-YFGN 100 UNIT/ML Pen 45 UNIT SC (10:41)
[2024-12-06] MEDS: Acetaminophen 325 MG Tablet 650 MG PO (11:04)
[2024-12-06] MEDS: Ferrous Sulfate 325 MG Tablet PO (13:12)
--- NOTE | 2024-12-06 13:19 | PCM.PN.HOSP ---
Reason for Visit Reason for Visit: Diagnoses Fracture of unspecified part of neck of left femur, initial encounter for closed fracture (12/02/24) Subjective Subjective Patient was seen and examined today, he voices no complaints of any shortness of breath or severe hip pain. Objective Data Objective Data Vital Signs: Vital Signs Temp Pulse Resp BP Pulse Ox O2 Del Method O2 Flow Rate 98.2 F 96 16 105/57 L 98 Room Air 2 12/06/24 13:07 12/06/24 13:07 12/06/24 13:07 12/06/24 13:07 12/06/24 13:07 12/06/24 13:07 12/06/24 08:00 Oxygen Flow Rate (L/min) 2 Oxygen Delivery Method Room Air Weight: 92.5 kg Body Mass Index (BMI) 27.6 Intake & Output: Intake and Output for Last 24 Hours 12/04/24 12/05/24 12/06/24 23:59 23:59 23:59 Intake Total 1154 / 1154 1050 / 1050 250 / 250 Output Total 3050 / 3050 650 / 1700 1850 / 1850 Balance -1896 / -1896 400 / -650 -1600 / -1600 Lab / Micro Data 12/05/24 07:53 12/03/24 06:39 Labs: Laboratory Results - last 24 hr 12/05/24 16:06: POC Glucose 233 H 12/05/24 22:25: POC Glucose 263 H 12/06/24 06:42: POC Glucose 208 H Micro: Microbiology 12/02/24 22:45 Mucosa - Nasopharyngeal SARS-CoV-2, Influenza & RSV (PCR) - Final Physical Exam Narrative alert, oriented x3, no apparent distress, average body habitus and healthy appearing General Appearance: cooperative, well kempt and well developed Orientation / Consciousness: awake, oriented to person, oriented to place and oriented to time HEENT normocephalic, head/scalp atraumatic and moist oral mucous membranes Eyes PERRL, EOMs intact bilaterally and conjunctivae normal Neck supple, no JVD, thyroid normal and no carotid bruits General: trachea midline Resp normal respiratory effort, no retractions, no use of accessory muscles and clear to auscultation bilaterally Auscultation: Negative for rales, rhonchi or wheezes Cardio regular rate, regular rhythm, S1 normal heart sound, S2 normal heart sound, no murmurs, no rub and no gallops GI normal to inspection, nondistended, normoactive bowel sounds, soft to palpation, non-tender and non-distended Extremity Extremity Narrative: Patient's lower extremities were not examined for range of motion due to the patient's left hip fracture Skin no rashes or lesions noted General Skin Exam: no breakdown Neuro oriented x3, CN's II-XII intact bilaterally, no focal motor deficits and no sensory deficits noted Sensorium / Orientation: awake and alert Speech: speech normal Psych affect normal Assessment & Plan Assessment/Plan (1) Closed fracture of left hip: PLAN: Plan 1. Subcapital fracture of the proximal left femur secondary to osteoporosis-postop day 2 hemiarthroplasty, continue PT and OT, patient will go to a senior care facility for inpatient rehab #2 valvular heart disease-patient has a bioprosthetic aortic valve in place #3 type 2 diabetes-patient's blood sugars will be monitored by fingerstick blood sugars, sliding scale insulin will be administered as needed #4 cerebrovascular disease-patient has a previous history of stroke according to the patient, he is on 81 mg aspirin daily #5 essential hypertension-patient will remain on his present medications #6 thrombocytopenia-etiology unclear, CBC will be repeated tomorrow Total clinical time spent by myself addressing patient's medical issues, reviewing all of his data, and collaborating with patient's care team: 35 minutes Charges/Coding Visit Charges Inpatient E&M: 51464 Subs Hosp L2
[2024-12-06 13:33] LABS: Bedside Glucose 266 mg/dL (74-106)
[2024-12-06 14:18] LABS: Bedside Glucose 203 mg/dL (74-106)
[2024-12-06 16:44] LABS: Bedside Glucose 267 mg/dL (74-106)
[2024-12-06] MEDS: Rivaroxaban 10 MG Tablet PO (17:41)
[2024-12-06] MEDS: Tamsulosin HCl 0.4 MG Capsule PO (17:43)
[2024-12-06] MEDS: Atorvastatin Calcium 80 MG Tablet PO (20:38)
[2024-12-06 23:27] LABS: Bedside Glucose 224 mg/dL (74-106)
[2024-12-07 05:00] VITALS: BP 110/61; PULSE 99; RESP 16; TEMP 36.8; O2SAT 95
[2024-12-07] MEDS: Acetaminophen 325 MG Tablet 650 MG PO ×2 (05:56→11:46)
[2024-12-07] MEDS: Insulin Lispro 100 UNIT/ML INSULN.PEN SC ×4 (06:27→22:49)
[2024-12-07 07:08] LABS: Absolute Lymphocyte Count 0.43 X10^3/uL (0.83-4.51); Absolute Neutrophil Count 3.2 X10^3/uL (2.0-7.7); Basophil# 0.02 X10^3/uL; Basophil% 0.5 % (0-1); Eosinophil# 0.13 X10^3/uL; Eosinophils% 3.2 % (0-5); Hematocrit 30.8 % (40-54); Hemoglobin 10.5 g/dL (13.0-16.5); Lymphocyte # 0.43 X10^3/ul (0.83-4.51); Lymphocyte % 10.5 % (19-41); Mean Corp Hgb Conc 34.1 g/dL (32-36); Mean Platelet Vol. 9.7 fl (6.2-12.0); Monocyte# 0.32 X10^3/uL; Monocyte% 7.8 % (0-10); NRBC Flagged by Analyzer 0 % (0-5); Neutrophil # 3.17 X10^3/uL (2.7-7.7); Neutrophil % 77.8 % (47-70); POSITIVE DIFFERENTIAL YES; Platelet Count 103 K/mm3 (150-450); RBC Distribution Width CV 13.4 % (11.6-14.6); RBC Distribution Width SD 42.9 fl (35.1-43.9); White Blood Count 4.1 K/mm3 (4.4-11.0)
[2024-12-07 07:10] LABS: Bedside Glucose 190 mg/dL (74-106)
[2024-12-07 07:55] VITALS: BP 131/73; PULSE 97; RESP 18; TEMP 36.7; O2SAT 96
[2024-12-07 09:23] VITALS: BP 131/73; PULSE 97
[2024-12-07] MEDS: Senna/Docusate Sodium 1 Tablet 2 TABLET PO ×2 (09:23→22:49)
[2024-12-07] MEDS: Metoprolol(XL)Succ 25 MG Tablet PO (09:23)
[2024-12-07] MEDS: RisperiDONE 1 MG Tablet PO ×2 (09:24→22:49)
[2024-12-07] MEDS: Insulin Glargine-YFGN 100 UNIT/ML Pen 45 UNIT SC (09:24)
[2024-12-07] MEDS: Losartan Potassium 25 MG Tablet PO (09:24)
[2024-12-07] MEDS: Pantoprazole Sodium 40 MG Tablet PO (09:24)
--- NOTE | 2024-12-07 11:35 | PN.HOSP_ITS ---
Reason for Visit Reason for Visit: Diagnoses Fracture of unspecified part of neck of left femur, initial encounter for closed fracture (12/02/24) Objective Data Objective Data Vital Signs: Vital Signs Temp Pulse Resp BP Pulse Ox O2 Del Method O2 Flow Rate 98.1 F 97 18 131/73 H 96 Room Air 2 12/07/24 07:55 12/07/24 09:23 12/07/24 07:55 12/07/24 09:23 12/07/24 07:55 12/07/24 08:12 12/06/24 08:00 Oxygen Flow Rate (L/min) 2 Oxygen Delivery Method Room Air Weight: 203 lb 14.841 oz Body Mass Index (BMI) 27.6 Intake & Output: Intake and Output for Last 24 Hours 12/05/24 12/06/24 12/07/24 23:59 23:59 23:59 Intake Total 1050 / 1050 750 / 1150 400 / 400 Output Total 650 / 1700 3150 / 3950 800 / 800 Balance 400 / -650 -2400 / -2800 -400 / -400 Lab / Micro Data 12/07/24 05:59 12/03/24 06:39 Labs: Laboratory Results - last 24 hr 12/03/24 16:34: Crossmatch See Detail 12/06/24 10:44: POC Glucose 203 H 12/06/24 13:04: POC Glucose 266 H 12/06/24 16:26: POC Glucose 267 H 12/06/24 22:49: POC Glucose 224 H 12/07/24 05:59: WBC 4.1 L, RBC 3.50 L, Hgb 10.5 L, Hct 30.8 L, MCV 88.0, MCH 30.0, MCHC 34.1, RDW Std Deviation 42.9, RDW Coeff of Hakeem 13.4, Plt Count 103 L, MPV 9.7, Immature Gran % (Auto) 0.200, Neut % (Auto) 77.8 H, Lymph % (Auto) 10.5 L, [place] % (Auto) 7.8, Eos % (Auto) 3.2, Baso % (Auto) 0.5, Absolute Neuts (auto) 3.2, Absolute Lymphs (auto) 0.43 L, Nucleated RBC % 0 12/07/24 06:25: POC Glucose 190 H Micro: Microbiology 12/02/24 22:45 Mucosa - Nasopharyngeal SARS-CoV-2, Influenza & RSV (PCR) - Final Physical Exam Narrative Seen and examined Patient has Bernal catheter. Had urine retention and Bernal was reinserted. On Flomax. Had left hip hemiarthroplasty for fracture Physical exam General: Alert, Oriented x3, Cooperative HEENT: Atraumatic, PERRLA, EOMI, Normocephalic Oral: No Gingival or Mucosal Lesions/ Ulcerations Neck: Supple, No JVD, Negative Carotid Bruits Chest wall/Lungs: Air entry diminished in bilateral lung bases. No crepitation/rhonchi Cardiovascular: Regular rate, Regular Rhythm, Normal S1, Normal S2, No M/G/R Abdomen: Bowel Sounds Present, Soft, Non Tender, Non-Distended : Bernal catheter, clear urine No renal angle tenderness. No suprapubic tenderness. Extremities: No edema, Capillary Refill Less than 3 Seconds Skin: Left hip surgical dressing is dry. No acute tenderness. No hematoma/bruise Musculoskeletal: No Tenderness to Palpation of Joints or Extremities. ROM of left hip not evaluated. Neurological: Cranial nerves II-XII grossly intact, DTR 2+/4. No acute focal neurological deficit. Psych/Mental Status: Normal Affect, Appropriate. Assessment & Plan Assessment/Plan (1) Closed fracture of left hip: PLAN: Plan 69-year-old male was admitted with left ip fracture 1. Subcapital fracture of the proximal left femur secondary to osteoporosis:- patient is being admitted on [facility] floor. He had left hip cemented hemiarthroplasty on 12/04/2024. 3/: Postop day third. Continue PT and OT, patient will go to a half-way facility for inpatient rehab #2 valvular heart disease-patient has a bioprosthetic aortic valve in place #3 type 2 diabetes melitis: Accu-Chek before meals and at bedtime with Humalog sliding scale coverage and hypoglycemia protocol. Lantus 45 units subcutaneous daily. #4. Chronic cerebrovascular disease:-patient has a previous history of stroke according to the patient, he is on 81 mg aspirin daily #5 Essential hypertension-patient on antihypertensive medication losartan. #6. Thrombocytopenia-etiology unclear, platelet count is 103K. It was about 70-80,000 on 12/03 and 12/04 Laboratory Results 12/03/24 16:34: Crossmatch See Detail 12/06/24 16:26: POC Glucose 267 H 12/06/24 22:49: POC Glucose 224 H 12/07/24 05:59: WBC 4.1 L, RBC 3.50 L, Hgb 10.5 L, Hct 30.8 L, MCV 88.0, MCH 30.0, MCHC 34.1, RDW Std Deviation 42.9, RDW Coeff of Hakeem 13.4, Plt Count 103 L, MPV 9.7, Immature Gran % (Auto) 0.200, Neut % (Auto) 77.8 H, Lymph % (Auto) 10.5 L, [place] % (Auto) 7.8, Eos % (Auto) 3.2, Baso % (Auto) 0.5, Absolute Neuts (auto) 3.2, Absolute Lymphs (auto) 0.43 L, Nucleated RBC % 0 12/07/24 06:25: POC Glucose 190 H 12/07/24 11:17: POC Glucose 295 H Charges/Coding Visit Charges Inpatient E&M: 41306 Subs Hosp L2
[2024-12-07] MEDS: Ferrous Sulfate 325 MG Tablet PO (11:46)
[2024-12-07 11:49] LABS: Bedside Glucose 295 mg/dL (74-106)
[2024-12-07 15:57] VITALS: BP 109/58; PULSE 89; RESP 18; TEMP 36.6; O2SAT 98
[2024-12-07] MEDS: Menthol/Lanolin/Calamine/Znox 113 GM Tube 1 APPLIC TOPICAL ×2 (16:05→22:00)
[2024-12-07] MEDS: Rivaroxaban 10 MG Tablet PO (16:10)
[2024-12-07 17:15] LABS: Bedside Glucose 246 mg/dL (74-106)
[2024-12-07] MEDS: Tamsulosin HCl 0.4 MG Capsule PO (17:39)
[2024-12-07 21:30] VITALS: BP 120/65; PULSE 87; RESP 15; TEMP 36.7; O2SAT 97
[2024-12-07] MEDS: Atorvastatin Calcium 80 MG Tablet PO (22:49)
[2024-12-07 23:13] LABS: Bedside Glucose 169 mg/dL (74-106)
[2024-12-08] VITALS (7 sets, daily range): BP systolic 99–124; BP diastolic 49–61; PULSE 79–100; RESP 15–18; TEMP 36.2–36.8; O2SAT 95–100
[2024-12-08] MEDS: Insulin Lispro 100 UNIT/ML INSULN.PEN SC ×3 (06:22→16:23)
[2024-12-08] MEDS: Menthol/Lanolin/Calamine/Znox 113 GM Tube 1 APPLIC TOPICAL ×3 (06:24→23:38)
[2024-12-08 06:44] LABS: Bedside Glucose 170 mg/dL (74-106)
[2024-12-08] MEDS: Losartan Potassium 25 MG Tablet PO (08:43)
[2024-12-08] MEDS: RisperiDONE 1 MG Tablet PO ×2 (08:45→23:39)
[2024-12-08] MEDS: Senna/Docusate Sodium 1 Tablet 2 TABLET PO ×2 (08:45→23:39)
[2024-12-08] MEDS: Metoprolol(XL)Succ 25 MG Tablet PO (08:46)
[2024-12-08] MEDS: Acetaminophen 325 MG Tablet 650 MG PO (08:47)
[2024-12-08] MEDS: oxyCODONE 5 MG Tablet PO (08:48)
[2024-12-08] MEDS: Pantoprazole Sodium 40 MG Tablet PO (08:54)
[2024-12-08] MEDS: Insulin Glargine-YFGN 100 UNIT/ML Pen 45 UNIT SC (08:55)
--- NOTE | 2024-12-08 09:15 | CASEMGMT ---
Discharge Planning Updates sent to [facility], [facility], and [facility]. Cheryl White DC Planning Asst.
[2024-12-08 10:54] LABS: Bedside Glucose 222 mg/dL (74-106)
[2024-12-08] MEDS: Ferrous Sulfate 325 MG Tablet PO (11:53)
--- NOTE | 2024-12-08 14:03 | CASEMGMT ---
Discharge Planning Registration verified that pt's [employer] is effective 12/06. Copy [facility] card [facility] to [facility], [facility], and [facility]. Cheryl White DC Planning Asst.
--- NOTE | 2024-12-08 15:21 | PCM.PN.HOSP ---
Reason for Visit Reason for Visit: Diagnoses Fracture of unspecified part of neck of left femur, initial encounter for closed fracture (12/02/24) Objective Data Objective Data Vital Signs: Vital Signs Temp Pulse Resp BP Pulse Ox O2 Del Method O2 Flow Rate 97.2 F L 79 18 99/49 L 100 Room Air 2 12/08/24 14:11 12/08/24 14:11 12/08/24 14:11 12/08/24 14:11 12/08/24 14:11 12/08/24 14:11 12/06/24 08:00 Oxygen Flow Rate (L/min) 2 Oxygen Delivery Method Room Air Weight: 203 lb 14.841 oz Body Mass Index (BMI) 27.6 Intake & Output: Intake and Output for Last 24 Hours 12/06/24 12/07/24 12/08/24 23:59 23:59 23:59 Intake Total 750 / 1150 2100 / 2200 1300 / 1300 Output Total 3150 / 3950 1550 / 2250 1600 / 1600 Balance -2400 / -2800 550 / -50 -300 / -300 Lab / Micro Data 12/07/24 05:59 12/03/24 06:39 Labs: Laboratory Results - last 24 hr 12/07/24 15:56: POC Glucose 246 H 12/07/24 22:44: POC Glucose 169 H 12/08/24 06:21: POC Glucose 170 H 12/08/24 10:36: POC Glucose 222 H Micro: Microbiology 12/02/24 22:45 Mucosa - Nasopharyngeal SARS-CoV-2, Influenza & RSV (PCR) - Final Physical Exam Narrative Seen and examined No acute issues overnight. Moving bowel. Patient has Bernal catheter. Had urine retention and Bernal was reinserted. On Flomax. Had left hip hemiarthroplasty for fracture Physical exam General: Alert, Oriented x3, Cooperative HEENT: Atraumatic, PERRLA, EOMI, Normocephalic Oral: No Gingival or Mucosal Lesions/ Ulcerations Neck: Supple, No JVD, Negative Carotid Bruits Chest wall/Lungs: Air entry diminished in bilateral lung bases. No crepitation/rhonchi Cardiovascular: Regular rate, Regular Rhythm, Normal S1, Normal S2, No M/G/R Abdomen: Bowel Sounds Present, Soft, Non Tender, Non-Distended : Bernal catheter, clear urine No renal angle tenderness. No suprapubic tenderness. Extremities: No edema, Capillary Refill Less than 3 Seconds Skin: Left hip surgical dressing is dry. No acute tenderness. No hematoma/bruise Musculoskeletal: No Tenderness to Palpation of Joints or Extremities. ROM of left hip not evaluated. Neurological: Cranial nerves II-XII grossly intact, DTR 2+/4. No acute focal neurological deficit. Psych/Mental Status: Normal Affect, Appropriate. Assessment & Plan Assessment/Plan (1) Closed fracture of left hip: PLAN: Plan 69-year-old male was admitted with left ip fracture 1. Subcapital fracture of the proximal left femur secondary to osteoporosis:-patient is being admitted on [facility] floor. He had left hip cemented hemiarthroplasty on 12/04/2024. 12/07: Postop day third. Continue PT and OT, patient will go to a fpc facility for inpatient rehab 12/08: No acute issues. Pending pre-CERT. Labs reviewed. #2 valvular heart disease-patient has a bioprosthetic aortic valve in place #3 type 2 diabetes melitis: Accu-Chek before meals and at bedtime with Humalog sliding scale coverage and hypoglycemia protocol. Lantus 45 units subcutaneous daily. #4. Chronic cerebrovascular disease:-patient has a previous history of stroke according to the patient, he is on 81 mg aspirin daily #5 Essential hypertension-patient on antihypertensive medication losartan. #6. Thrombocytopenia-etiology unclear, platelet count is 103K. It was about 70-80,000 on 12/03 and 12/04 12/08: Chronic thrombocytopenia. 7. H&H 10.5/30.8% consistent with anemia chronic anemia. Hemoglobin stays between 10 to 11 g. Laboratory Results 12/03/24 16:34: Crossmatch See Detail 12/06/24 16:26: POC Glucose 267 H 12/06/24 22:49: POC Glucose 224 H 12/07/24 05:59: WBC 4.1 L, RBC 3.50 L, Hgb 10.5 L, Hct 30.8 L, MCV 88.0, MCH 30.0, MCHC 34.1, RDW Std Deviation 42.9, RDW Coeff of Hakeem 13.4, Plt Count 103 L, MPV 9.7, Immature Gran % (Auto) 0.200, Neut % (Auto) 77.8 H, Lymph % (Auto) 10.5 L, Pinal % (Auto) 7.8, Eos % (Auto) 3.2, Baso % (Auto) 0.5, Absolute Neuts (auto) 3.2, Absolute Lymphs (auto) 0.43 L, Nucleated RBC % 0 12/07/24 06:25: POC Glucose 190 H 12/07/24 11:17: POC Glucose 295 H Charges/Coding Visit Charges Inpatient E&M: 47346 Subs Hosp L2
--- NOTE | 2024-12-08 15:37 | CASEMGMT ---
[facility] has accepted and is foc. They will submit for precert. [facility] and [facility] asked to cancel referral. SW updated. Cheryl White DC Planning Asst.
[2024-12-08] MEDS: Tamsulosin HCl 0.4 MG Capsule PO (16:26)
[2024-12-08] MEDS: Rivaroxaban 10 MG Tablet PO (16:26)
[2024-12-08] MEDS: Juven (unflavored) Packet 1 PACKET PO (16:29)
[2024-12-08 16:43] LABS: Bedside Glucose 200 mg/dL (74-106)
[2024-12-08] MEDS: Atorvastatin Calcium 80 MG Tablet PO (23:40)
[2024-12-08 23:58] LABS: Bedside Glucose 152 mg/dL (74-106)
[2024-12-09 03:08] VITALS: BP 102/60; PULSE 97; RESP 18; TEMP 36.7; O2SAT 100
[2024-12-09] MEDS: oxyCODONE 5 MG Tablet PO ×3 (03:19→16:16)
[2024-12-09] MEDS: Acetaminophen 325 MG Tablet 650 MG PO ×3 (03:19→16:17)
[2024-12-09] MEDS: Menthol/Lanolin/Calamine/Znox 113 GM Tube 1 APPLIC TOPICAL (06:36)
[2024-12-09 06:58] LABS: Bedside Glucose 134 mg/dL (74-106)
[2024-12-09 08:28] VITALS: BP 105/61; PULSE 83; RESP 16; TEMP 36.6; O2SAT 100
[2024-12-09] MEDS: RisperiDONE 1 MG Tablet PO (08:45)
[2024-12-09 08:46] VITALS: PULSE 83
[2024-12-09] MEDS: Pantoprazole Sodium 40 MG Tablet PO (08:46)
[2024-12-09] MEDS: Senna/Docusate Sodium 1 Tablet 2 TABLET PO (08:46)
[2024-12-09] MEDS: Metoprolol(XL)Succ 25 MG Tablet PO (08:46)
[2024-12-09] MEDS: Juven (unflavored) Packet 1 PACKET PO ×2 (08:47→16:14)
[2024-12-09] MEDS: Insulin Glargine-YFGN 100 UNIT/ML Pen 45 UNIT SC (08:48)
--- NOTE | 2024-12-09 10:46 | PCM.TXEXTCAR ---
Diet Diet Order/Speech Therapy: 12/04/24 16:26 Diet: Consistent Carb - Calorie Controlled How many daily calories?: 0 calorie Routine Orders/Code Status Suppository Type: Dulcolax 10mg Suppository Frequency: Daily PRN DC O2, CPAP, BIPAP needs Home O2 Discharge instructions: No Wound(s) L elbow: Wound Type: Abrasion bilateral knees: Wound Type: Abrasion left hip: Wound Type: Surgical Incision buttock: Wound Type: Pressure Injury Therapies Extremity Affected:: Bilateral Lower Physical Therapy: Eval and Treat Occupational Therapy: Eval and Treat Speech Therapy: Eval and Treat Problem/Diagnosis (1) Closed fracture of left hip: Status: Acute Code(s): S72.002A - Fracture of unspecified part of neck of left femur, initial encounter for closed fracture Plan 69-year-old male was admitted with left ip fracture 1. Subcapital fracture of the proximal left femur secondary to osteoporosis:-patient is being admitted on [facility] floor. He had left hip cemented hemiarthroplasty on 12/04/2024. 12/07: Postop day third. Continue PT and OT, [facility] 12/08: No acute issues. Pending pre-CERT. Labs reviewed. #2 valvular heart disease-patient has a bioprosthetic aortic valve in place #3 type 2 diabetes melitis: Accu-Chek before meals and at bedtime with Humalog sliding scale coverage and hypoglycemia protocol. Lantus 45 units subcutaneous daily. #4. Chronic cerebrovascular disease:-patient has a previous history of stroke according to the patient, he is on 81 mg aspirin daily #5 Essential hypertension-patient on antihypertensive medication losartan. #6. Thrombocytopenia-etiology unclear, platelet count is 103K. It was about 70-80,000 on 12/03 and 12/04 33: Chronic thrombocytopenia. 7. H&H 10.5/30.8% consistent with anemia chronic anemia. Hemoglobin stays between 10 to 11 g. Laboratory Results 12/03/24 16:34: Crossmatch See Detail 12/06/24 16:26: POC Glucose 267 H 12/06/24 22:49: POC Glucose 224 H 12/07/24 05:59: WBC 4.1 L, RBC 3.50 L, Hgb 10.5 L, Hct 30.8 L, MCV 88.0, MCH 30.0, MCHC 34.1, RDW Std Deviation 42.9, RDW Coeff of Hakeem 13.4, Plt Count 103 L, MPV 9.7, Immature Gran % (Auto) 0.200, Neut % (Auto) 77.8 H, Lymph % (Auto) 10.5 L, Colbert % (Auto) 7.8, Eos % (Auto) 3.2, Baso % (Auto) 0.5, Absolute Neuts (auto) 3.2, Absolute Lymphs (auto) 0.43 L, Nucleated RBC % 0 12/07/24 06:25: POC Glucose 190 H 12/07/24 11:17: POC Glucose 295 H Allergies/Procedures Done in Hospital Allergies No Known Allergies Allergy (Verified 12/02/24 14:09) Type of Care/Length of Stay Estimated LOS: Convalescent Care Less Than 30 days Type of Care Needed: Skilled Rehab Potential: Good Prognosis: Good Additional Orders/Day of Discharge Day of Discharge: 12/09/24 Dietary and Speech Recommendations Dietitian Recommendations/Changes: Change to 2200 doc Consistent CHO diet to better meet pt est nutritional needs Will order Aries bid w/ medpass to help w/ wound healing if consumed. Discharge Plan Admission Admit Date/Time: 12/02/24 16:03 Primary Reason for Your Visit: Left hip fracture. Attending Provider: Edvin Lomas Primary Care Provider: [facility],[place] Consulting Providers: Sung Lopez; Enoch Carrizales; Edvin Lomas; Jose España Discharge Orders/Prescriptions Prescriptions: New sennosides-docusate sodium [Stimulant Laxative Plus] 8.6-50 mg Tablet 2 tab PO BID Qty: 0 0RF tamsulosin 0.4 mg Capsule 0.4 mg PO DAILY@1730 Qty: 0 0RF oxycodone 5 mg Tablet 2.5 mg PO Q4H PRN PRN (Reason: Pain Score 4-10) 3 Days Qty: 7 0RF insulin lispro [Humalog KwikPen Insulin] 100 unit/mL Insulin Pen See Protocol subcut ACHS Qty: 0 0RF Protocol: 3. Sliding Scale Insulin Med Dosing Condition: 150-189 mg/dl = 1 unit Condition: 190-229 mg/dl = 2 units Condition: 230-269 mg/dl = 3 units Condition: 270-309 mg/dl = 4 units Condition: 310-349 mg/dl = 5 units Condition: 350-399 mg/dl = 6 units Condition: 400-449 mg/dl = 7 units Condition: Greater than 449 call physician Protocol Text: Suggested for: - Patients on Total Daily Insulin Dose of 37-55 units - Obese, infected, or steroid patients MEDIUM DOSING ALGORITHIM Xarelto 10 mg Tablet 10 mg PO DINNER 30 Days Qty: 30 0RF Rx Instructions: For DVT prophylaxis after left hip surgery Continued aspirin 81 MG tablet 81 mg PO DAILY@0800 rosuvastatin 40 mg Tablet 40 mg PO QHS losartan 25 mg tablet 25 mg PO DAILY ferrous sulfate 325 mg (65 mg iron) tablet 325 mg PO DAILY Patient Comments: PT STATES HE THINKS HE TAKES THIS metoprolol succinate 25 mg tablet extended release 24 hr 25 mg PO DAILY ascorbic acid (vitamin C) 250 mg tablet 250 mg PO DAILY melatonin 10 mg capsule 10 mg PO DAILY PRN (Reason: insomnia) omeprazole 20 mg capsule,delayed release(DR/EC) 40 mg PO DAILY risperidone 1 mg tablet 1 mg PO BID Ozempic 0.25 mg or 0.5 mg (2 mg/3 mL) pen injector 0.5 mg subcut MO insulin glargine U-300 conc [Toujeo Max U-300 SoloStar] 300 unit/mL (3 mL) insulin pen 45 unit subcut DAILY 30 Days Qty: 0 0RF Rx Instructions: Hold if glucose less than 130 mg/dl Referrals / Follow Up: Sung Lopez MD [Med Staff - Active Staff] - [facility] Weeks [facility] [Primary [facility] - Disposition Disposition (needs filled in before D/C Order can be placed): Retirement Facility
[2024-12-09 11:46] LABS: Bedside Glucose 219 mg/dL (74-106)
[2024-12-09] MEDS: Insulin Lispro 100 UNIT/ML INSULN.PEN SC ×2 (12:01→16:14)
[2024-12-09] MEDS: Ferrous Sulfate 325 MG Tablet PO (12:01)
--- NOTE | 2024-12-09 13:54 | DS.PCM_ITS ---
Providers Date of Admission: 12/02/24 Date of Discharge: 12/09/24 Primary Care Physician: [facility] Consultations 12/02/24 17:22 Consult: Orthopedics Routine Consulting Provider: Sung Lopez Reason for Consult: left hip fxr EMERGENT Consult: No MD Notified: Yes Date Notified: 12/02/24 Time Notified: 16:15 Method of Notification: ED Physician Initiated Reason For Visit: HIP FRACTURE Diagnosis Discharge Diagnosis (1) Closed fracture of left hip: Status: Acute Code(s): S72.002A - Fracture of unspecified part of neck of left femur, initial encounter for closed fracture Plan 69-year-old male was admitted with left ip fracture 1. Subcapital fracture of the proximal left femur secondary to osteoporosis:- [facility]. He had left hip cemented hemiarthroplasty on 12/04/2024. 12/07: Postop day third. Continue PT and OT, patient will go to a nursing home facility for inpatient rehab 3: No acute issues. Pending pre-CERT. Labs reviewed. 12/09: Patient had the pre-CERT. Patient discharged on oxycodone. Prescription given 5 mg, half tablet q. 6 hourly as needed for moderate to severe pain for 7 tablets. OARRS reviewed. NARx score, C-reactive and instability score 0. Prescription also given for Xarelto 10 mg daily for 30 days for DVT prophylaxis after hip surgery. Follow-up with orthopedic surgeon Dr. Lopez in 2 weeks. #2 valvular heart disease-patient has a bioprosthetic aortic valve in place 3/4 blood pressure and home medications continued including losartan, Toprol-XL, atorvastatin. #3 type 2 diabetes melitis: Accu-Chek before meals and at bedtime with Humalog sliding scale coverage and hypoglycemia protocol. Lantus 45 units subcutaneous daily. 3/: Glucoses are reasonably controlled #4. Chronic cerebrovascular disease:-patient has a previous history of stroke according to the patient, he is on 81 mg aspirin daily #5 Essential hypertension-patient on antihypertensive medication losartan. #6. Thrombocytopenia-etiology unclear, platelet count is 103K. It was about 70-80,000 on 12/03 and 12/04 3/3: Chronic thrombocytopenia. 7. H&H 10.5/30.8% consistent with anemia chronic anemia. Hemoglobin stays between 10 to 11 g. Discharge medication reconciliation done. Discharge follow-up instructions completed. Discharge process discussed with the patient and all questions were answered to patient's satisfaction. Follow with PCP in 1 to 2 weeks Total time spent, exact 35 minutes on discharge meds reconciliation, examination, coordination of care with nurses and ancillary staff, review of imaging and blood test and discussion with the patient on follow-up instructions. Laboratory Results 12/08/24 16:23: POC Glucose 200 H 12/08/24 23:36: POC Glucose 152 H 12/09/24 06:35: POC Glucose 134 H 12/09/24 11:27: POC Glucose 219 H Medications at Discharge Home Medications aspirin 81 mg tablet,delayed release 81 mg PO DAILY@0800 heart health 07/08/20 rosuvastatin 40 mg tablet 40 mg PO QHS CHOLESTEROL 09/13/22 ascorbic acid (vitamin C) 250 mg tablet 250 mg PO DAILY health 11/20/23 ferrous sulfate 325 mg (65 mg iron) tablet 325 mg PO DAILY health 11/20/23 losartan 25 mg tablet 25 mg PO DAILY blood pressure 11/20/23 melatonin 10 mg capsule 10 mg PO DAILY PRN insomnia 11/20/23 metoprolol succinate 25 mg tablet,extended release 24 hr 25 mg PO DAILY blood pressure 11/20/23 omeprazole 20 mg capsule,delayed release 40 mg PO DAILY GERD 11/20/23 risperidone 1 mg tablet 1 mg PO BID bipolar 11/20/23 semaglutide 0.25 mg or 0.5 mg (2 mg/3 mL) subcutaneous pen injector (Ozempic) 0.5 mg subcut MO diabetes 11/20/23 insulin glargine U-300 conc 300 unit/mL (3 mL) subcutaneous pen (Toujeo Max U- 300 SoloStar) 45 unit (0.15 mL) subcut DAILY diabetes 30 days #0 mL 12/09/24 insulin lispro 100 unit/mL subcutaneous pen (Humalog KwikPen (U-100) Insulin) See Protocol subcut ACHS #0 mL 12/09/24 oxycodone 5 mg tablet 2.5 mg (1/2 x 5 mg) PO Q4H PRN PRN Pain Score 4-10 3 days #7 tabs 12/09/24 rivaroxaban 10 mg tablet (Xarelto) 10 mg PO DINNER 30 days #30 tabs 12/09/24 sennosides 8.6 mg-docusate sodium 50 mg tablet (Stimulant Laxative Plus) 2 tab PO BID #0 tabs 12/09/24 tamsulosin 0.4 mg capsule 0.4 mg PO DAILY@1730 #0 caps 12/09/24 Physical Exam Narrative Seen and examined No acute issues overnight. Moving bowel. Patient has Bernal catheter. Patient is being discharged with Bernal catheter. He had urine retention and Bernal was reinserted. On Flomax. Had left hip hemiarthroplasty for fracture Physical exam General: Alert, Oriented x3, Cooperative HEENT: Atraumatic, PERRLA, EOMI, Normocephalic Oral: No Gingival or Mucosal Lesions/ Ulcerations Neck: Supple, No JVD, Negative Carotid Bruits Chest wall/Lungs: Air entry diminished in bilateral lung bases. No crepitation/rhonchi Cardiovascular: Regular rate, Regular Rhythm, Normal S1, Normal S2, No M/G/R Abdomen: Bowel Sounds Present, Soft, Non Tender, Non-Distended : Bernal catheter, clear urine No renal angle tenderness. No suprapubic tenderness. Extremities: No edema, Capillary Refill Less than 3 Seconds Skin: Left hip surgical dressing is dry. No acute tenderness. No hematoma/bruise Musculoskeletal: No Tenderness to Palpation of Joints or Extremities. ROM of left hip not evaluated. Neurological: Cranial nerves II-XII grossly intact, DTR 2+/4. No acute focal neurological deficit. Psych/Mental Status: Normal Affect, Appropriate. Weight / BMI Weight Weight: 203 lb 14.841 oz Body Mass Index (BMI) 27.6 ABG / Lab / Microbiology Data 12/07/24 05:59 12/03/24 06:39 Laboratory: Laboratory Results - last 24 hr 12/08/24 16:23: POC Glucose 200 H 12/08/24 23:36: POC Glucose 152 H 12/09/24 06:35: POC Glucose 134 H 12/09/24 11:27: POC Glucose 219 H Microbiology: Microbiology 12/02/24 22:45 Mucosa - Nasopharyngeal SARS-CoV-2, Influenza & RSV (PCR) - Final D/C Instructions DC O2, CPAP, BIPAP Needs Home O2 Discharge instructions: No Meaningful Use Info Meaningful Use Meaningful Use Diagnoses (Choose all that apply): None applicable Ischemic Stroke Statin Dosing Therapy Reference: STATIN DOSE THERAPY REFERENCE: * Patients > 75 years receive moderate or high dose statin therapy. * Patients 75 years or YOUNGER should receive HIGH intensity statin dose unless contraindicated. You will be required to document reason for non-treatment if statin daily dose does not meet guidelines. HIGH DOSE STATIN THERAPY DAILY Atorvastatin > than or = to 40 mg Rosuvastatin > than or = to 20 mg Amlodipine + Atorvastatin > than or = to 2.5/40 mg Ezetimibe + Simvastatin 10/80 mg Simvastatin 80mg Discharge Plan Admission Admit Date/Time: 12/02/24 16:03 Primary Reason for Your Visit: Left hip fracture. Attending Provider: Edvin Lomas Primary Care Provider: [facility],[place] Consulting Providers: Sung Lopez; Enoch Carrizales; Edvin Lomas; Jose España Discharge Orders/Prescriptions Prescriptions: New sennosides-docusate sodium [Stimulant Laxative Plus] 8.6-50 mg Tablet 2 tab PO BID Qty: 0 0RF tamsulosin 0.4 mg Capsule 0.4 mg PO DAILY@1730 Qty: 0 0RF oxycodone 5 mg Tablet 2.5 mg PO Q4H PRN PRN (Reason: Pain Score 4-10) 3 Days Qty: 7 0RF insulin lispro [Humalog KwikPen Insulin] 100 unit/mL Insulin Pen See Protocol subcut ACHS Qty: 0 0RF Protocol: 3. Sliding Scale Insulin Med Dosing Condition: 150-189 mg/dl = 1 unit Condition: 190-229 mg/dl = 2 units Condition: 230-269 mg/dl = 3 units Condition: 270-309 mg/dl = 4 units Condition: 310-349 mg/dl = 5 units Condition: 350-399 mg/dl = 6 units Condition: 400-449 mg/dl = 7 units Condition: Greater than 449 call physician Protocol Text: Suggested for: - Patients on Total Daily Insulin Dose of 37-55 units - Obese, infected, or steroid patients MEDIUM DOSING ALGORITHIM Xarelto 10 mg Tablet 10 mg PO DINNER 30 Days Qty: 30 0RF Rx Instructions: For DVT prophylaxis after left hip surgery Continued aspirin 81 MG tablet 81 mg PO DAILY@0800 rosuvastatin 40 mg Tablet 40 mg PO QHS losartan 25 mg tablet 25 mg PO DAILY ferrous sulfate 325 mg (65 mg iron) tablet 325 mg PO DAILY Patient Comments: PT STATES HE THINKS HE TAKES THIS metoprolol succinate 25 mg tablet extended release 24 hr 25 mg PO DAILY ascorbic acid (vitamin C) 250 mg tablet 250 mg PO DAILY melatonin 10 mg capsule 10 mg PO DAILY PRN (Reason: insomnia) omeprazole 20 mg capsule,delayed release(DR/EC) 40 mg PO DAILY risperidone 1 mg tablet 1 mg PO BID Ozempic 0.25 mg or 0.5 mg (2 mg/3 mL) pen injector 0.5 mg subcut MO insulin glargine U-300 conc [Toujeo Max U-300 SoloStar] 300 unit/mL (3 mL) insulin pen 45 unit subcut DAILY 30 Days Qty: 0 0RF Rx Instructions: Hold if glucose less than 130 mg/dl Referrals / Follow Up: Sung Lopez MD [Med Staff - Active Staff] - [facility] Weeks [facility] [[facility] - Disposition Disposition (needs filled in before D/C Order can be placed): [facility] Charges/Coding Visit Charges Inpatient E&M: 37340 Disch Hosp >30min
--- NOTE | 2024-12-09 14:04 | CASEMGMT ---
Social Work Precert has been obtained.? Physician updated and pt is ready for discharge today.? 7000 convalescent form completed in [facility]. DCA notified of discharge. Final arrangements to pt and family to be completed by DCA. Disposition:[facility], skilled level of care under convalescent stay. GERALD Sykes
--- NOTE | 2024-12-09 14:27 | PHA.DC.MR.R ---
Pharmacy [facility] Reconciliation Pharmacy Service has performed discharge medication reconciliation for this patient. The patient's discharge medication list was reviewed for discrepancies and discrepancies were resolved. Medications at Discharge Home Medications aspirin 81 mg tablet,delayed release 81 mg PO DAILY@0800 heart health 07/08/20 rosuvastatin 40 mg tablet 40 mg PO QHS CHOLESTEROL 09/13/22 ascorbic acid (vitamin C) 250 mg tablet 250 mg PO DAILY health 11/20/23 ferrous sulfate 325 mg (65 mg iron) tablet 325 mg PO DAILY health 11/20/23 losartan 25 mg tablet 25 mg PO DAILY blood pressure 11/20/23 melatonin 10 mg capsule 10 mg PO DAILY PRN insomnia 11/20/23 metoprolol succinate 25 mg tablet,extended release 24 hr 25 mg PO DAILY blood pressure 11/20/23 omeprazole 20 mg capsule,delayed release 40 mg PO DAILY GERD 11/20/23 risperidone 1 mg tablet 1 mg PO BID bipolar 11/20/23 semaglutide 0.25 mg or 0.5 mg (2 mg/3 mL) subcutaneous pen injector (Ozempic) 0.5 mg subcut MO diabetes 11/20/23 insulin glargine U-300 conc 300 unit/mL (3 mL) subcutaneous pen (Toujeo Max U-300 SoloStar) 45 unit (0.15 mL) subcut DAILY diabetes 30 days #0 mL 12/09/24 insulin lispro 100 unit/mL subcutaneous pen (Humalog KwikPen (U-100) Insulin) See Protocol subcut ACHS #0 mL 12/09/24 oxycodone 5 mg tablet 2.5 mg (1/2 x 5 mg) PO Q4H PRN PRN Pain Score 4-10 3 days #7 tabs 12/09/24 rivaroxaban 10 mg tablet (Xarelto) 10 mg PO DINNER 30 days #30 tabs 12/09/24 sennosides 8.6 mg-docusate sodium 50 mg tablet (Stimulant Laxative Plus) 2 tab PO BID #0 tabs 12/09/24 tamsulosin 0.4 mg capsule 0.4 mg PO DAILY@1730 #0 caps 12/09/24
--- NOTE | 2024-12-09 14:35 | CASEMGMT ---
Discharge Planning Discharge orders, signed med list, and transport times sent to [facility]. Physicians will transport pt by wheelchair at 7p. Nursing, SW, and pt updated. Pt declined notification to xwife and friend listed as contacts. Cheryl White DC Planning Asst.
[2024-12-09 15:08] VITALS: BP 113/63; PULSE 88; RESP 16; TEMP 36.5; O2SAT 100
[2024-12-09] MEDS: Rivaroxaban 10 MG Tablet PO (16:14)
[2024-12-09 17:01] LABS: Bedside Glucose 238 mg/dL (74-106)
--- NOTE | 2024-12-09 17:53 | NURSING ---
face to face report at bedside given to transport
== END 2024-12-09 17:52 | disposition skilled nursing facility (03) | DRG 522 ==
LOC: ED 16:27 → MS3 16:46
PROVIDERS: Internal Medicine; Orthopaedic Surgery Sports Medicine; Physician Assistant; Emergency Provider Emergency Medicine; Visit Provider Internal Medicine
PROC: 0SRS019 Replacement of Left Hip Joint, Femoral Surface with Metal Synthetic Substitute, Cemented, Open Approach (ICD-10-PCS; CPT 27125; principal; 2024-12-04 12:40)
DX: M80.052A Age-related osteoporosis with current pathological fracture, left femur, initial encounter for fracture (principal); I24.89 Other forms of acute ischemic heart disease; D69.6 Thrombocytopenia, unspecified; E11.42 Type 2 diabetes mellitus with diabetic polyneuropathy; D64.9 Anemia, unspecified; I10 Essential (primary) hypertension; Z95.2 Presence of prosthetic heart valve; E78.5 Hyperlipidemia, unspecified; Z79.4 Long term (current) use of insulin; Z87.891 Personal history of nicotine dependence; Z79.85 Long-term (current) use of injectable non-insulin antidiabetic drugs; Z86.73 Personal history of transient ischemic attack (TIA), and cerebral infarction without residual deficits; Z95.0 Presence of cardiac pacemaker; Z79.82 Long term (current) use of aspirin; R33.9 Retention of urine, unspecified; Z90.49 Acquired absence of other specified parts of digestive tract
CPT/HCPCS: 36415; 70450; 71045; 73502; 80048; 80053; 81001; 82550; 82962; 83036; 84484; 85025; 86850; 86900; 86901; 86965; 87631; 88307; 88311; 93005; 93306; 97110; 97116; 97162; 97166; 97530; 97535; 99285; C1776; P9035; Q9957; A4216; C8929; J2405